=== PATIENT | male | born 1955 | race Caucasian/White ===

== ENCOUNTER → 2016-09-10 | Outpatient (CLI) | payer BC ==
--- NOTE | 2016-09-12 10:54 | PE ---
Nuclear medicine PET/CT HISTORY: Multiple myeloma Patient received 12.4 mCi F-18 FDG intravenously. Scanning was performed of the whole body. Exam juan elated to previous exam dated 20 February 2016 FINDINGS: Head and neck: Maxillary sinus disease is noted right greater than left. No evident adenopathy. No kauffman spicious hypermetabolic uptake. Small node deep to the sternocleidomastoid muscle on the right axial image 66 shows only mild hypermetabolic uptake, 2.1 as on prior CHEST: Coronary artery calcifications, evidence of old granulomatous disease again seen. No pleural o r pericardial effusion. Emphysematous changes are extensive within the lungs, there is no evident shivam g mass. No adenopathy or suspicious hypermetabolic uptake. Mild hilar uptake is likely physiologic. Abdomen pelvis: No retroperitoneal adenopathy. No suspicious hypermetabolic uptake. Bones: Left ilium shows cortical thickening is some central lucency, mild uptake, SUV 3.4. Coarsening of the trabecula also present in the right ilium. EXTREMITIES: Unremarkable IMPRESSION: Findings are similar to previous exam. IMPRESSION:
== END | disposition home or self-care (01) ==
LOC: RADPETMAIN 14:28
PROVIDERS: ATTEND Internal Medicine Hematology & Oncology
DX: C90.00 Multiple myeloma not having achieved remission (principal)
CPT/HCPCS: 78816; A9552

== ENCOUNTER → 2017-10-21 | Outpatient (CLI) | payer BC ==
--- NOTE | 2017-10-22 13:10 | PE ---
EXAMINATION TYPE: PET CT fusion whole body DATE OF EXAM: 10/21/2017 CLINICAL HISTORY: 62 year-old male restaging multiple myeloma. Last chemotherapy in 2014. TECHNIQUE: Following the intravenous administration of 10.7 mCi of F-18 FDG, whole body images are performed from the skull vertex through the feet. Images are reviewed on the computer in the coronal, axial, and sagittal planes. Reconstructed rotating images are created on independent workstation an d reviewed on the computer. A localization and attenuation correction CT is performed in conjunctio n with the PET scan. Glucose level: 106 mg/dL CTDI: 3.85 & 1.46 mGy DLP: 387.88 & 128.09 mGy-cm COMPARISON: 09/10/2016 FINDINGS: PET: Tiny lymph node in the right side of the neck posterior to the sternocleidomastoid muscle remains unc hanged but now shows no significant FDG uptake. There is variable moderate uptake along the oropharyngeal mucosal space likely physiologic activity. No discrete mass is seen. Mild bilateral hilar uptake, max SUV 2.8 is unchanged, likely reactive/post inflammatory. There is ev idence of prior granulomatous disease with calcified based on hilar lymph nodes. Average liver SUV 2.7. 2 right renal lesions, largest in the midpole measuring 2.2 cm and shows no discrete FDG uptake and w as present on prior exam. Both are most suggestive of cysts. Physiologic FDG uptake within the abdomen and pelvis. Variable mild FDG uptake throughout the spine, max SUV 2.9 is stable to decreased from prior, max SUV 3.3. Some heterogeneous density along the superior medial left iliac bone shows mild FDG uptake Max SUV 2. 2 versus 3.4, previously. Post bone graft harvesting changes in the posterior left iliac bone show no FDG uptake. Focal mild FDG uptake, max SUV 2.2, at the origin of the left medial gastrocnemius shows no change on CT images, probable tendinosis or muscular uptake especially given the curvilinear configuration. There is moderate focal activity seen superficially along the dorsolateral mid to hindfoot regions, m ax SUV 3.9 on the left and 4.5 on the right. The symmetry favors muscular activity relating to extens or brevis musculature in the feet. Mild symmetrical uptake along the plantar musculature of the feet, Max SUV 2.7. ATTENUATION CORRECTION CT: Visualized intracranial structures show no line shift or hydrocephalus. Visualized paranasal sinuses and mastoid air cells are clear. No cervical lymphadenopathy. Heart is upper limits of normal in size without pericardial effusion. Coronary vessel calcifications are present and are a marker for coronary artery disease. Ectatic ascending aorta 3.8 cm with conven tional arch vessel branching anatomy. Large caliber to the main right and left pulmonary arteries at 3.0 and 2.8 cm, respectively, suggesting underlying pulmonary arterial hypertension. Scattered nonen larged mediastinal lymph nodes are unchanged. Calcified subcarinal and right hilar lymph nodes compat ible prior granulomatous disease. There is moderate centrilobular emphysema with a dependent atelect asis. No consolidation or pleural effusion. Bilobed fusiform ectasia of the infrarenal abdominal aorta 2.8 and 2.6 cm. Small hiatal hernia. No d ilated small bowel, free fluid, or free air. Normal appendix. No mesenteric or retroperitoneal lympha denopathy. Sigmoid diverticulosis. Bladder is urine distended. Prostate gland enlargement 5.0 cm wide. No abnormal fluid collection in t he pelvis or pelvic lymphadenopathy. Bones: Post surgical changes of prior bone graft harvesting left iliac bone. IMPRESSION: 1. No convincing CT or metabolic evidence for recurrent/metastatic disease with some details as follo ws: 2. Post surgical changes along the posterior left iliac bone from prior bone graft harvesting. Some p atchy density in the iliac bone just above is stable and shows decreasing, now mild uptake, max SUV 2 .2 versus 3.4, previously. 3. Stable mild bilateral hilar uptake (SUV 2.8) likely reactive/post inflammatory. 4. Decreasing variable mild FDG uptake throughout the spine (max SUV 2.9 versus 3.3, previously). No discrete CT abnormality. 5. Some new mild hypermetabolism at the origin of the left medial gastrocnemius likely tendinosis or strain given the elongated configuration. Symmetrical moderate hypermetabolism along the dorsolateral mid to hindfeet also suggests muscular uptake. 6. Incidental: CAD, COPD with moderate emphysema and pulmonary arterial hypertension, sigmoid diverti culosis, ectatic infrarenal abdominal aorta (2.8 cm), and prostatomegaly (5.0 cm).
== END ==
LOC: RADPETMAIN 08:27
PROVIDERS: ATTEND Internal Medicine Hematology & Oncology
DX: C90.00 Multiple myeloma not having achieved remission (principal); Z92.21 Personal history of antineoplastic chemotherapy; Z98.890 Other specified postprocedural states
CPT/HCPCS: 78816; A9552

== ENCOUNTER → 2018-01-03 | Outpatient (CLI) | payer BC ==
--- NOTE | 2018-01-03 10:11 | US ---
EXAMINATION TYPE: US venous doppler duplex LE LT DATE OF EXAM: 01/03/2018 9:40 AM COMPARISON: NONE CLINICAL HISTORY: 62-year-old male M79.662 PAIN LT LOWER LIMB,R22.42 SWELLING LT LOWER LIMB. Chemo pa tient, swelling in left leg, no h/o DVT SIDE PERFORMED: Left TECHNIQUE: The lower extremity deep venous system is examined utilizing real time linear array sonog tanika with graded compression, doppler sonography and color-flow sonography. FINDINGS: VESSELS IMAGED: External Iliac Vein (EIV) Common Femoral Vein Deep Femoral Vein Greater Saphenous Vein * Femoral Vein Popliteal Vein Small Saphenous Vein * Proximal Calf Veins Posterior tibial veins (* superficial vessels) Left Leg: Appears negative for DVT *tech impression given to Orin at office @ 9:45 IMPRESSION: No evidence for DVT within the left lower extremity.
== END | disposition home or self-care (01) ==
LOC: RADUSWWP 09:23
PROVIDERS: ATTEND Internal Medicine Hematology & Oncology
DX: R22.42 Localized swelling, mass and lump, left lower limb (principal); M79.662 Pain in left lower leg

== ENCOUNTER → 2018-01-11 | Outpatient (CLI) | payer BC ==
--- NOTE | 2018-01-11 09:38 | XR ---
EXAMINATION TYPE: XR ankle limited RT DATE OF EXAM: 01/11/2018 CLINICAL HISTORY: Right ankle pain with no known injury. History of multiple myeloma. TECHNIQUE: Frontal and lateral images of the right ankle are obtained. COMPARISON: PET/CT dated 10/21/2017. FINDINGS: There is no focal lytic lesion in this patient known history of multiple myeloma. There is no acute fracture/dislocation evident in the right ankle. The ankle mortise appears within normal li mits. Well-corticated osseous fragment adjacent to the lateral malleolus may represent an accessory o ssicle or sequela of prior injury. There is minimal fat stranding within the pre-Achilles fat pad and mild soft tissue swelling of the lateral hindfoot and overlying the lateral malleolus. IMPRESSION: 1. No acute fracture or dislocation in the right ankle. No focal lytic lesion in this patient with hi story of multiple myeloma. 2. Mild fat stranding within the pre-Achilles fat pad and minimal soft tissue swelling over the later al malleolus. In combination with the previously seen mild hypermetabolism along the dorsolateral hin d feet on the prior PET dated 10/13/2017 suggesting muscular uptake and possible tendinosis or muscula r strain MRI could be performed further evaluate for these diagnoses.
== END | disposition home or self-care (01) ==
LOC: RADXRMAIN 09:15
PROVIDERS: ATTEND Internal Medicine Hematology & Oncology
DX: C90.00 Multiple myeloma not having achieved remission (principal); D61.810 Antineoplastic chemotherapy induced pancytopenia; G62.0 Drug-induced polyneuropathy; B37.0 Candidal stomatitis

== ENCOUNTER → 2018-07-28 | Outpatient (CLI) | payer BC ==
--- NOTE | 2018-07-28 11:54 | PE ---
EXAMINATION TYPE: PET CT fusion whole body DATE OF EXAM: 07/28/2018 COMPARISON: Most recent PET CT October 21, 2017 and older PET/CT's. HISTORY: Multiple myeloma progress study. Completed chemotherapy June 30, 2018. TECHNIQUE: Following the intravenous administration of 13.07 mCi of F-18 FDG, whole body images are performed from the top of skull to the bottom of the feet. Images are reviewed on the computer in th e coronal, axial, and sagittal planes. Reconstructed rotating images are created on independent work station and reviewed on the computer. A noncontrast CT is performed in conjunction with the PET sca n. SCAN: Subsequent Scan FINDINGS: HEAD AND NECK: No new suspicious hypermetabolic foci are seen. CHEST, MEDIASTINUM, AND HILAR REGION: There is hypermetabolic left hilar reticulated lesion measuring 4.2 x 2.8 cm axial image 130 new from prior PET/CT With max SUV of 5.6, primary lung carcinoma shoul d be considered as there is background moderate emphysematous change redemonstrated most prominent kelly ng apices. ABDOMEN AND PELVIS: No adrenal masses are noted. No hypermetabolic lesions are seen. OSSEOUS STRUCTURES: There is new hypermetabolic focus left lateral mid rib axial image 123, max SUV i s 2.94. There are new hypermetabolic foci in the thoracic spine for reference upper thoracic level axial imag e 104 Max SUV is 3.7. There is more prominent hypermetabolic focus T8 vertebra axial image 133 with m ax SUV of 11.83. No suspicious corresponding lytic lesion is clearly seen at this level. There is new hypermetabolic focus right upper sacrum with max SUV 7.12 axial image 229, no definitive corresponding lytic lesion is present. There is hypermetabolic focus right iliac bone axial image 20 with max SUV 7.01, no definitive corresponding lytic lesion is present. Well-corticated lucency left iliac bone near sacroiliac joint is unchanged from prior study without hypermetabolic uptake. LOWER EXTREMITIES: There are persistent areas of hypermetabolic uptake anterolateral aspect of bilate ral hindfeet to mid feet that is more prominent from prior studies, curvilinear in shape bilaterally with max SUV 6.73 on the left and 10.85 on the right. Additional uptake along plantar surface midfoot level is also present bilaterally on current study. Areas appear to correlate to muscle. OTHER CT: Calcified lymph nodes right hilar and subcarinal region consistent with old granulomatous d isease are redemonstrated. There is coronary artery calcification and/or stents again seen most prominent LAD distribution. Mild cardiomegaly remains present. Enlarged pulmonary arteries consistent with underlying pulmonary hyper tension are again seen. Small degree of bilateral gynecomastia is redemonstrated. There is mild to moderate calcified plaque of aorta extending into branch vessels with ectasia but no t greater than 3 cm aneurysmal change. Diverticula in the sigmoid colon are redemonstrated. Prostate gland is mildly enlarged in size consistent with BPH. IMPRESSION: 1. New multifocal osseous hypermetabolic uptake suspicious for active myeloma recurrence despite lack of visualization of distinct lytic lesions. 2. New suspicious left hilar hypermetabolic spiculated lesion worrisome for new primary lung carcinom a on background chronic emphysematous change. Bronchoscopy was sampling advised. 3. Increasing hypermetabolic uptake in the bilateral feet is favor postinflammatory given symmetric a nd persistent appearance versus prior studies, myositis is suspected. Correlate clinically.
== END | disposition home or self-care (01) ==
LOC: RADPETMAIN 07:25
PROVIDERS: ATTEND Internal Medicine Hematology & Oncology
DX: C90.00 Multiple myeloma not having achieved remission (principal); R93.7 Abnormal findings on diagnostic imaging of other parts of musculoskeletal system; Z92.21 Personal history of antineoplastic chemotherapy
CPT/HCPCS: 78816; A9552

== ENCOUNTER 2018-08-08 10:41 | Day surgery (SDC) | payer MEDICARE, BC ==
[2018-08-06 18:35] VITALS: BMI 26.6
[~2018-08-08 10:41] MED LIST: ALBUTEROL NEB (CONC) 2.5 MG/0.5 ML INHALATION ONE; LACTATED RINGERS 1,000 ML IV SCH; LIDOCAINE 1% 20 ML VIAL (10MG/ML) FOR IV START INTRADERMA PRN; LIDOCAINE 2% (PF) 20 MG/ML 10 ML AMP INHALATION ONE; LIDOCAINE VISCOUS 2% 15 ML CUP MUCOUS MEM ONE
[2018-08-08 11:02] VITALS: RESP 18; TEMP 97.8
[2018-08-08] MEDS ORDERED: LIDOCAINE 1% INJ 10MG/ML (20 ML MDV) ONE (12:39)
[2018-08-08] MEDS ORDERED: PROPOFOL 10 MG/ML 20 ML VIAL IV ONE (12:39)
[2018-08-08] MEDS ORDERED: LIDOCAINE 2% INJ 20 MG/ML INTRATRACH ONE (12:47)
[2018-08-08] MEDS ORDERED: oxyCODONE-APAP 5-325MG 1 EACH TAB PO ONE (13:23)
[2018-08-08] MEDS ORDERED: oxyCODONE-APAP 5-325MG 1 EACH TAB PO STA (13:26)
--- NOTE | 2018-08-08 14:16 | XR ---
EXAMINATION TYPE: XR chest 1V portable DATE OF EXAM: 08/08/2018 Comparison: 08/03/2018 Clinical History: 63-year-old male POST BRONCH Findings: Heart upper limits of normal in size. Known left lower lung opacity though there is increased surroun ding groundglass. No sizable effusion. No appreciable pneumothorax. Impression: Known left infrahilar opacity mass/consolidation. Some increased surrounding groundglass could repres ent mild hemorrhage associated with lung biopsy. No pleural effusion or pneumothorax seen.
--- NOTE | 2018-08-08 14:17 | FL ---
EXAMINATION TYPE: FL bronchoscopy DATE OF EXAM: 08/08/2018 COMPARISON: NONE HISTORY: BRONCH WITH BRUSHING,WASH AND BX TECHNIQUE: Fluoroscopy. Dr. Morejon supervised use of mariely for a lt side bronch with bx, brushings and wash. 8 secs fl
[2018-08-08 14:28] VITALS: BP 128/61; PULSE 70
--- NOTE | 2018-08-08 20:40 | PCN ---
PROCEDURE NOTE OPERATIVE REPORT: Bronchoscopy, bronchoalveolar lavage of the lingula, endobronchial brushings of the lingula, and transbronchial biopsies of the lingula using fluoroscopy as guidance. PREOPERATIVE DIAGNOSES: Left hilar mass noted on recent PET scan. POSTOPERATIVE DIAGNOSIS: Suspect bronchogenic carcinoma. ANESTHESIA USED: IV conscious sedation, please refer to PHILANTHROPY OFFICER documentation. DESCRIPTION OF PROCEDURE: Patient was prepared according to the bronchoscopy protocol. The patient was placed in a supine position, O2 was applied via nasal cannula. We monitored his O2 saturation continuously. Blood pressure was intermittently monitored. His cardiac rhythm was continuously monitored. After adequate IV conscious sedation, the bronchoscope was inserted through the right naris down to the area of the vocal cords. The vocal cords were noted to be patent. Lidocaine was applied over the vocal cords, and the bronchoscope was advanced further down to the trachea. Thorough examination was done of the trachea, dorothea, right upper lobe, right middle lobe, right lower lobe, left upper lobe, lingula, and left lower lobe. The only abnormality was noted was basically the narrowing of the bronchus to the lingula, and the mucosa was noted to be slightly inflamed and erythematous, friable. A bronchoalveolar lavage was done of the lingula involving the superior and inferior lingula. Then multiple brushings were done from the lingula using fluoroscopy. Then transbronchial biopsies from the inferior lingula were done with fluoroscopy guidance. There was no evidence of specific endobronchial lesion to biopsy. Procedure was well tolerated, no evidence of any immediate complications. SPECIMEN: From the lingula was sent for different diagnostic studies. Chest x-ray was ordered postoperatively. MMODL / IJN: [id number] /
[2018-08-08 21:04] LABS: Appearance,BF Cloudy; Color,BF Colorless; Nucleated Cells, Body Fluid 140 /uL; RBC, Body Fluid 1520 /uL
[2018-08-08 21:29] LABS: Mononuclear WBC,Body Fluid 4 %; Polynuclear WBC,Body Fluid 96 %; Total Cells Counted,Body Fluid 100
== END 2018-08-08 14:38 | disposition home or self-care (01) ==
LOC: ORWHC2ENDO 10:41
PROVIDERS: ATTEND Internal Medicine
DX: J42 Unspecified chronic bronchitis (principal); R91.8 Other nonspecific abnormal finding of lung field; E78.5 Hyperlipidemia, unspecified; I10 Essential (primary) hypertension; M19.90 Unspecified osteoarthritis, unspecified site; G62.0 Drug-induced polyneuropathy; I25.10 Atherosclerotic heart disease of native coronary artery without angina pectoris; E78.00 Pure hypercholesterolemia, unspecified; C90.01 Multiple myeloma in remission; C90.00 Multiple myeloma not having achieved remission; I25.2 Old myocardial infarction; F17.290 Nicotine dependence, other tobacco product, uncomplicated; Z95.5 Presence of coronary angioplasty implant and graft; Z94.81 Bone marrow transplant status; Z79.899 Other long term (current) drug therapy
CPT/HCPCS: 94640; 88104; 88108; 88305; 89050; 87070; 87205; 87116; 87102; 87206; 71045; 31628; 31623; 31624; J2001 ×3; J2704

== ENCOUNTER 2018-08-16 07:39 | Day surgery (SDC) | payer MEDICARE, BC ==
[2018-08-14 12:03] VITALS: BMI 26.6
[~2018-08-16 07:39] MED LIST changes: +LACTATED RINGERS 1,000 ML IV ONE; -LIDOCAINE 1% 20 ML VIAL (10MG/ML) FOR IV START INTRADERMA PRN
[2018-08-16 08:16] VITALS: RESP 16
[2018-08-16] MEDS ORDERED: LIDOCAINE 1% 20 ML VIAL (10MG/ML) FOR IV START INTRADERMA ONE (08:27)
--- NOTE | 2018-08-16 10:18 | CT ---
EXAMINATION TYPE: CT Chest wo con Veran Protocol DATE OF EXAM: 08/16/2018 COMPARISON: PET CT fusion July 28, 2018 HISTORY: Veran protocol CT DLP: [address] of the chest was performed with lung and mediastinal window settings submitted for [facility] navigation. The lack of contrast limits evaluation of the vascular, mediastinal and parenchyma l structures including the upper abdomen. LUNGS: Spiculated left upper lobe mass with pleural extension as well as extension to the superior hi lum. Mass extends along the left cardiac border into the lingula. Mass measures approximately 5.9 x 4 .5 cm x 9.1 cm. There is narrowing of the left upper lobe bronchus. Postobstructive pneumonitis noted . 7 mm nodular density right upper lobe image 22 requires further follow-up. Emphysematous changes wi thin the upper lobes. Mild right basilar subpleural fibrosis. MEDIASTINUM/ANN: Thoracic aorta is of normal caliber with limited evaluation given lack of contrast . The heart is not enlarged. No evidence for mediastinal mass. There is evidence of left hilar kika opathy measuring approximately 2.7 cm. Subcentimeter lymph nodes within the prevascular space as well as the paratracheal regions and calcified mediastinal and right hilar lymph nodes noted. AP window. UPPER ABDOMEN: No significant abnormality is seen. OTHER: No significant other abnormality. IMPRESSION: 1. Left upper lobe mass compatible with malignancy until proven otherwise. Narrowing left upper lobe bronchus with left basilar effusion small in size. Left hilar adenopathy noted as well. 2. Small spiculated groundglass nodule right upper lobe may reflect an area of scarring however appro priate follow-up is advised.
[2018-08-16] MEDS ORDERED: SUCCINYLCHOLINE CHLORIDE 100 MG/5 ML SYR IV ONE (10:42)
[2018-08-16] MEDS ORDERED: LIDOCAINE 1% INJ 10MG/ML (20 ML MDV) ONE (10:42)
[2018-08-16] MEDS ORDERED: MIDAZOLAM 2 MG/2 ML VIAL ONE (10:42)
[2018-08-16] MEDS ORDERED: GLYCOPYRROLATE 0.2 MG/ML 2 ML VIAL ONE (10:42)
[2018-08-16] MEDS ORDERED: ROCURONIUM BROMIDE 10 MG/ML 10 ML VIAL IV ONE (10:42)
[2018-08-16] MEDS ORDERED: PROPOFOL 10 MG/ML 20 ML VIAL IV ONE (10:42)
[2018-08-16] MEDS ORDERED: NEOSTIGMINE 1 MG/ML 10 ML VIAL ONE (10:42)
[2018-08-16] MEDS ORDERED: fentaNYL (PF) 50 MCG/ML 2 ML AMP ONE (10:42)
[2018-08-16] MEDS ORDERED: LACTATED RINGERS 1,000 ML IV ONE (11:44)
[2018-08-16 12:10] VITALS: TEMP 97.8
[2018-08-16 13:17] VITALS: BP 147/88; PULSE 56
--- NOTE | 2018-08-16 13:56 | XR ---
EXAMINATION TYPE: XR chest 1V portable DATE OF EXAM: 08/16/2018 Comparison: 08/08/2018 Clinical History: 63-year-old male Transbronchial biopsies MALLORY Findings: Heart upper limits of normal in size. Aorta and pulmonary vasculature within normal limits. Increasin g consolidation left mid and lower lung. No appreciable pneumothorax. No sizable effusion. Impression: Increasing consolidation left mid and lower lung could represent sequela of patient's endobronchial b iopsies with contusion. No pneumothorax.
[2018-08-16 15:08] LABS: Color,BF Red
[2018-08-16 15:30] LABS: Appearance,BF Bloody
[2018-08-16 16:13] LABS: Nucleated Cells, Body Fluid 800 /uL; RBC, Body Fluid 26600 /uL
[2018-08-16 16:24] LABS: Mononuclear WBC,Body Fluid 8 %; Polynuclear WBC,Body Fluid 91 %; Total Cells Counted,Body Fluid 100
--- NOTE | 2018-08-16 17:27 | P.PCN ---
Date of Procedure: 08/16/18 Preoperative Diagnosis: MALLORY mass Postoperative Diagnosis: MALLORY mass Procedure(s) Performed: Navigational bronchoscopy, transbronchial biopsy, transbronchial brushing, transbronchial needle aspirate, bronchioloalveolar lavage of the left upper lobe Anesthesia: DALTON Surgeon: Leona Zacarias Estimated Blood Loss (ml): 0 Pathology: other Condition: stable Disposition: same day Operative Findings: This procedure was done in the operating room. This is a navigational bronchoscopy. The patient underwent a CAT scan of the chest. The VPADS were applied to his chest. The patient's computed tomography scan of the chest was uploaded into the [employer] navigational system. The left upper lobe mass was identified. The mapping was done and the appropriate information was uploaded into the [employer] station. The patient was brought into the operating room. With the help of TALENT ACQUISITION SPECIALIST, the patient was intubated and placed on a mechanical ventilator. The anesthesia was managed by TALENT ACQUISITION SPECIALIST the bedside. Following intubation, the flexible bronchoscope was inserted to the orotracheal tube and was advanced into the lower trachea. The tip of the ET tube was seen about 2 cm above the domitila. A quick airway inspection was done. Domitila was sharp in the midline. The distal trachea was within normal limits. The visualized airways including the bilateral mainstem bronchi, right upper lobe bronchus, right middle lobe bronchus, right lower lobe bronchus, left upper lobe bronchus, left lower lobe bronchus, alongsegments and subsegments. The airways were patent and without any endobronchial tumors or lesions. Some limited secretions were seen in the lingular segment and the anterior segment of the left upper lobe. The secretions were suctioned out. Following that the bronchoscope was brought to the main domitila and calibrations were done using to reference points and these were the main domitila and the secondary domitila and the left lung. Following that , using navigational guidance, the bronchoscope was directed to the left upper lobe. The forceps was inserted. The left upper lobe mass was localized and the mass was approached in 2 different routes. Initial biopsies were taken from the superior segment of the lingula. Subsequent biopsies were obtained from the subsegments from the anterior segment of the left upper lobe. The mass was approached with 0 mm distance and under litigation guidance the forceps was seen within the mass. Multiple transbuccal biopsies were obtained. Following that a spot compressions of the left upper lobe mass was done using the similar navigational approach. Following that, a 19-gauge needle was used to perform transbronchial needle aspirate of left upper lobe mass and this was done again on the navigational guidance. At the end of the procedure, a bronchial lavage of the left upper lobe was done. A total of 80 mL of fluid was infused and 25 mL of bloody aspirate was obtained. No bedside Occasional bleeding. Bronchoscope was removed. The patient was extubated and the patient was transferred to recovery in stable condition. The patient had a chest x-ray that showed no evidence of any pneumothorax. The patient was discharged home to be followed up with me in the office on outpatient basis.
--- NOTE | 2018-08-21 16:26 | CDI ---
Date: 08/21/18 CDS/Heating Unit Installer Name: Cami Lagunas Phone: If any questions, call Indira Patiño Concrete [employer] Plant Supervisor at [phone] Patient Name: Fede Nicholas Admit Date: 08/16/18 Discharge Date: 08/16/18 ATTENTION: The [facility] Coding Staff appreciate your assistance in clarifying documentation. Please respond to the clarification below the line at the bottom and electronically sign. The [facility] Coding staff will review the response and follow-up if needed. Please note: Queries are made part of the Legal Health Record. If you have any questions, please contact the Concrete Block Plant Supervisor. Dear Dr. Zacarias, Please provide clarification of the procedure(s) performed. Operative report under Procedure(s) Performed; is documented that transbronchial brushing was performed. The pathology report notes a specimen from the brushing. There is no mention of the brushing in the body of the report. Please clarify. Thank you for your kind consideration. This is a transbronchial brushing of a MALLORY mass/opacity MTDD
== END 2018-08-16 13:33 | disposition home or self-care (01) ==
LOC: ORWHC2ENDO 07:39
PROVIDERS: ATTEND Internal Medicine Critical Care Medicine
DX: J44.9 Chronic obstructive pulmonary disease, unspecified (principal); I25.10 Atherosclerotic heart disease of native coronary artery without angina pectoris; I10 Essential (primary) hypertension; C90.00 Multiple myeloma not having achieved remission; I25.2 Old myocardial infarction; Z94.81 Bone marrow transplant status; E78.5 Hyperlipidemia, unspecified; F17.200 Nicotine dependence, unspecified, uncomplicated; Z79.899 Other long term (current) drug therapy; Z79.891 Long term (current) use of opiate analgesic; Z79.82 Long term (current) use of aspirin
CPT/HCPCS: 88104; 88108; 88305; 89050; 88342; 88341; 87070; 87205; 71045; 71250; 31628; 31623; 31624; 31627; J2250; J2710; J2001; J3010; J0330; J2704; 31625; 31633

== ENCOUNTER 2018-08-22 00:56 | Inpatient (IN) | payer MEDICARE, BC ==
[2018-08-22] MEDS ORDERED: HEPARIN SODIUM,PORCINE 5,000 UNIT/ML 1 ML VIAL IV STA (01:06)
[2018-08-22] MEDS ORDERED: NITROGLYCERIN OINT 1 INCH/GM PACKET TOPICAL STA (01:06)
--- NOTE | 2018-08-22 01:09 | ED ---
Chest Pain HPI - General Chief Complaint: Chest Pain Stated Complaint: Chest Pain Time Seen by Provider: 08/22/18 01:05 Source: patient, EMS Mode of arrival: ambulatory Limitations: no limitations - History of Present Illness Initial Comments: Fede is a 63-year-old male with a history of known CAD and recently identified lung mass. Patient presents to the emergency department today via EMS for evaluation of sudden onset of chest pain. Patient reports a history throughout the day he was having some chills and sweats but otherwise felt okay. He reports that he woke from sleep with left-sided sharp stabbing chest pain that feels like a knife in his back below his scapula. Patient called EMS and was given aspirin and nitro with no improvement in his pain. He was given fentanyl which she believes improved his pain significantly. Upon arrival to the emergency department patient is febrile diaphoretic and ill-appearing. - Related Data Home Medications Medication Instructions Recorded Confirmed RX: Famotidine 20 mg PO HS 01/08/14 08/14/18 RX: Gabapentin [Neurontin] 600 mg PO TID 01/08/14 08/14/18 RX: oxyCODONE HCL/ACETAMINOPHEN 1 each PO Q6HR PRN 01/08/14 08/14/18 [Percocet 10-325 mg] Atorvastatin [Lipitor] 40 mg PO DAILY@1200 03/24/14 08/14/18 RX: Aspirin 81 mg PO DAILY 03/24/14 08/14/18 Acyclovir [Zovirax] 400 mg PO BID 08/06/18 08/14/18 Cetirizine HCl [Zyrtec] 10 mg PO HS 08/06/18 08/14/18 RX: Lisinopril [Zestril] 2.5 mg PO DAILY@1200 08/06/18 08/14/18 Allergies Allergy/AdvReac Type Severity Reaction Status Date / Time No Known Allergies Allergy Verified 08/22/18 01:03 Review of Systems ROS Statement: Those systems with pertinent positive or pertinent negative responses have been documented in the HPI. ROS Other: All systems not noted in ROS Statement are negative. EKG Findings - EKG Comments: EKG Findings:: EKG obtained it 12:59 AM, rate is 98 rhythm is sinus there is a normal axis, there is a short NV NV is 88 ms, QRS 90 QTc her long at is 485. There is mild ST depressions in V3 and 4 there are no acute ST elevations no evidence of acute infarction. Past Medical History Past Medical History: Coronary Artery Disease (CAD), Cancer, COPD, GERD/Reflux, Hyperlipidemia, Hypertension, Myocardial Infarction ([place]) Additional Past Medical History / Comment(s): multiple myeloma, hx ulcer years ago. NEUROPATHY LEGS/FEET. LUNG MASS biopsy results not back yet. Last Myocardial Infarction Date:: 01/09/14, FEB 2005 History of Any Multi-Drug Resistant Organisms: None Reported Past Surgical History: Heart Catheterization With Stent Additional Past Surgical History / Comment(s): BONE MARROW TRANSPLANT 09/2010. PTCA W/ 2 STENTS 2004; PTCA W/ 1 STENT 2013. Bone marrow biopsies. COLONOSCOPY. EGD Past Anesthesia/Blood Transfusion Reactions: No Reported Reaction Date of Last Stent Placement:: 01/09/14 Past Psychological History: No Psychological Hx Reported Smoking Status: Current every day smoker - Past Family History Father Family Medical History: Cancer Additional Family Medical History / Comment(s): LUNG CA Son(s) Family Medical History: Cancer Additional Family Medical History / Comment(s): BLADDER CA General Exam - General Exam Comments Initial Comments: Physical Exam GENERAL: Ill appearing, febrile, diaphoretic HENT: Normocephalic, Atraumatic. EYES: PERRL, EOMI PULMONARY: Decrease lung sounds on the left CARDIOVASCULAR: There is a regular rate and rhythm without any murmurs gallops or rubs. ABDOMEN: Soft and nontender with normal bowel sounds. SKIN: Warm and diaphoretic : Deferred NEUROLOGIC: Patient is alert and oriented x3. Moving all extremities spontaneously MUSCULOSKELETAL: Normal extremities with adequate strength and full range of motion. No lower extremity swelling or edema. No calf tenderness. PSYCHIATRIC: Normal psychiatric evaluation. Limitations: no limitations Limitations: no limitations Course Vital Signs 08/22/18 08/22/18 08/22/18 00:57 01:06 01:20 Temperature 101.8 F H 101.7 F H Pulse Rate 98 94 89 Respiratory 20 18 18 Rate Blood Pressure 118/65 94/63 110/72 O2 Sat by Pulse 97 93 L 95 Oximetry 08/22/18 08/22/18 08/22/18 01:35 01:50 02:05 Temperature 101.7 F H 101.6 F H 100.2 F H Pulse Rate 89 77 72 Respiratory 18 18 18 Rate Blood Pressure 113/63 108/74 118/63 O2 Sat by Pulse 94 L 94 L 95 Oximetry 08/22/18 08/22/18 08/22/18 02:20 03:37 04:13 Temperature 99.0 F 98.6 F Pulse Rate 72 65 64 Respiratory 18 18 18 Rate Blood Pressure 122/62 106/64 107/64 O2 Sat by Pulse 95 95 93 L Oximetry Chest Pain MDM - MDM The patient was seen and evaluated, history was obtained from EMS and the patient, initially brought cardiac workup was ordered however patient was noted to be tachycardic and febrile diaphoretic additional labs including blood cultures and influenza swabs ordered Labs reveal no leukocytosis however there is new microcytic anemia of unknown origin. Patient has not had a CBC done in number of years in our system. Lactic acid elevated at 3.3, IV fluids are infusing, Motrin was ordered for the fever Influenza negative CXR with effusion, questionable for pneumonia Rocephin and azithromycin were ordered Patient reports that he gets his blood Beau regularly with his oncologist Dr. Reynolds in his been told he's anemic in the past but is not certain what his hemoglobin usually is, his hemoglobin today is 8.8, uncertain etiology though he does appear to be microcytic. Computed tomography scan of the chest was ordered Computed tomography scan her chest has multiple abnormalities including inflammatory changes of the pericardium concerning for pericarditis. Compression fracture at T4, again the mass is identified as well as lymphadenopathy. Given this anemia of unknown etiology, lactic acidosis, fever, CT findings concerning for pericarditis I do feel the patient warrants admission for further evaluation. Admission orders were placed consults to cardiology and oncology were placed, an echocardiogram was ordered. Patient was updated on plan. Disposition Clinical Impression: Pericarditis, Lung mass, Sepsis, Chest pain, Mass of upper lobe of left lung Disposition: ADMITTED IP TO THIS HOSP Condition: Stable Is patient prescribed a controlled substance at d/c from ED?: No
[2018-08-22] MEDS ORDERED: HEPARIN SOD,PORK IN 0.45% NACL 25,000 UNIT in 0.45% NACL 1 250ML.BAG IV SCH (01:15)
[2018-08-22 01:24] LABS: Anisocytosis Slight; Basophils % (A) 1 %; Eosinophils # (A) 0.1 k/uL (0-0.7); Eosinophils % (A) 1 %; HCT 27.4 % (39.0-53.0); HGB 8.8 gm/dL (13.0-17.5); Hypochromasia Marked; Lymphocytes # (A) 0.5 k/uL (1.0-4.8); Lymphocytes % (A) 10 %; MCH 35.1 pg (25.0-35.0); MCHC 32.1 g/dL (31.0-37.0); MCV 109.3 fL (80.0-100.0); Mean Platelet Volume 10.2; Monocytes # (A) 0.1 k/uL (0-1.0); Monocytes % (A) 3 %; Neutrophils # (A) 4.3 k/uL (1.3-7.7); Neutrophils % (A) 84 %; RBC 2.51 m/uL (4.30-5.90); RDW 18.6 % (11.5-15.5); WBC 5.1 k/uL (3.8-10.6)
[2018-08-22 01:33] LABS: ALT 25 U/L (21-72); AST 16 U/L (17-59); Alkaline Phosphatase 185 U/L (38-126); Anion Gap 11 mmol/L; Blood Urea Nitrogen 27 mg/dL (9-20); Calcium 8.6 mg/dL (8.4-10.2); Carbon Dioxide 18 mmol/L (22-30); Chloride 109 mmol/L (98-107); Glucose 133 mg/dL (74-99); Magnesium 1.9 mg/dL (1.6-2.3); Potassium 3.9 mmol/L (3.5-5.1); Sodium 138 mmol/L (137-145); Total Bilirubin 1.1 mg/dL (0.2-1.3); Total Protein 5.8 g/dL (6.3-8.2)
[2018-08-22 01:40] LABS: INR 1.1 (<1.2); Prothrombin Time 11.8 sec (9.0-12.0)
[2018-08-22 01:48] LABS: Partial Thromboplastin Time 21.2 sec (22.0-30.0)
[2018-08-22] MEDS ORDERED: AZITHROMYCIN 500 MG in SODIUM CHLORIDE 0.9% 250 ML IVPB STA (01:56)
[2018-08-22 01:59] LABS: Platelet Count 59 k/uL (150-450); Poikilocytosis (M) Present; Target Cells Present
[2018-08-22 02:00] LABS: Ovalocytes Present
[2018-08-22 02:01] LABS: Macrocytosis Marked
--- NOTE | 2018-08-22 02:05 | XR ---
EXAM: XR Chest, 2 Views CLINICAL HISTORY: ITS.REASON XR Reason: Chest Pain TECHNIQUE: Frontal and lateral views of the chest. COMPARISON: 08/16/17. FINDINGS: Lungs: Persistent left mid and lower lung opacity, slightly increased compared to prior study. Pleural space: Probable left pleural effusion. No significant pneumothorax. Heart: Stable cardiomediastinal silhouette. Mediastinum: See above. Bones/joints: Stable. IMPRESSION: 1. Persistent left mid and lower lung opacity, slightly increased compared to prior study. 2. Probable left pleural effusion.
[2018-08-22] MEDS ORDERED: IBUPROFEN 400 MG TAB PO STA (02:09)
[2018-08-22] MEDS ORDERED: SODIUM CHLORIDE 0.9% 1,000 ML IV ONE (02:09)
[2018-08-22] MEDS ORDERED: ACETAMINOPHEN TAB 500 MG TAB PO STA (02:20)
[2018-08-22] MEDS ORDERED: RX INFO: IV CONTRAST WAS GIVEN 1 EACH MISC MISCELLANE PRN (02:54)
--- NOTE | 2018-08-22 04:30 | CT ---
EXAM: CT Chest With Intravenous Contrast CLINICAL HISTORY: ITS.REASON CT Reason: pain, mass, new anemia TECHNIQUE: Axial computed tomography images of the chest with intravenous contrast. CTDI is 7.7 mGy and DLP is 366.9 mGy-cm. This CT exam was performed using one or more of the following dose reduction techniques: automated exposure control, adjustment of the mA and/or kV according to patient size, and/or use of iterative reconstruction technique. COMPARISON: CT 08/16/18. FINDINGS: Lungs: Small-moderate left pleural effusion with left basilar atelectasis/consolidation. Persistent left upper lobe mass. The right lung appears stable with persistent small nodules. Pleural space: No evidence of pneumothorax. Heart: Small pericardial fluid with fat stranding at the left cardiophrenic angle. Bones/joints: Compression deformities in the spine which appears more prominent at the T8 level. Sclerotic focus again noted at the T4 level. Soft tissues: Unremarkable. Vasculature: Atherosclerotic disease. No aortic dissection. Enlarged pulmonary artery suggestive of pulmonary hypertension. Lymph nodes: Prominent mediastinal and hilar lymph nodes, some of which are calcified. Gallbladder and bile ducts: Mildly distended gallbladder. Adrenals: Slight thickening of the adrenal glands. Kidneys and ureters: Right renal low-density lesion. Incompletely imaged low density structure adjacent to the left kidney. IMPRESSION: 1. Small-moderate left pleural effusion with left basilar atelectasis/consolidation. Persistent left upper lobe mass. Correlate clinically for inflammatory/infectious process. 2. Small pericardial fluid with fat stranding at the left cardiophrenic angle. Correlate clinically for pericarditis or other inflammatory/infectious etiologies. 3. Compression deformities in the spine which appears more prominent at the T8 level, cannot exclude acute fracture, potentially pathologic. 4. Additional findings, as above.
[2018-08-22] MEDS ORDERED: MORPHINE SULFATE 4 MG/ML SYRINGE IVP PRN ×2 (04:46→09:04)
[2018-08-22] MEDS ORDERED: BACLOFEN 10 MG TAB PO PRN (13:01)
[2018-08-22] MEDS ORDERED: HYDROmorphone 1 MG/ML 1 ML SYRINGE IVP PRN (13:07)
[2018-08-22] MEDS: KETOROLAC 30 MG/ML 1 ML VIAL IVP SCH ×2 (14:58→20:47)
[2018-08-22] MEDS: oxyCODONE-APAP 10-325MG 1 EACH TAB PO PRN (14:58)
[2018-08-22] MEDS ORDERED: NALOXONE 0.4 MG/ML 1 ML VIAL IV PRN (16:07)
--- NOTE | 2018-08-22 16:08 | ECHOF ---
Referral Reason:possible pericarditis MEASUREMENTS -------- HEIGHT: 175.3 cm WEIGHT: 79.4 kg BP: 124/71 RVIDd: 2.9 cm (< 3.3) IVSd: 1.2 cm (0.6 - 1.1) LVIDd: 4.8 cm (3.9 - 5.3) LVPWd: 1.2 cm (0.6 - 1.1) IVSs: 1.4 cm LVIDs: 3.1 cm LVPWs: 1.4 cm LAESV Index (A-L): 17.52 ml/m Ao Diam: 4.0 cm (2.0 - 3.7) AV Cusp: 1.7 cm (1.5 - 2.6) LA Diam: 3.0 cm (2.7 - 3.8) MV E Eric: 0.53 m/s MV DecT: 276 ms MV A Eric: 0.75 m/s MV E/A Ratio: 0.70 RAP: 5.00 mmHg RVSP: 13.28 mmHg FINDINGS -------- Sinus rhythm. This was a technically difficult study with suboptimal views. The left ventricular size is normal. There is mild concentric left ventricular hypertrophy. Overa ll left ventricular systolic function is mild-moderately impaired with, an EF between 40 - 45 %. Se ptal Hypokinesis The right ventricle is normal in size and function. Normal LA size by volume 22+/-6 ml/m2. The right atrium was not well visualized. 3 ml of Lumason was utilized for enhancement of images. Aortic valve is trileaflet and is mildly thickened. Trace amount of aortic regurgitation. There is no evidence of aortic stenosis. The mitral valve leaflets are mildly thickened. There is trace to mild mitral regurgitation. Trace tricuspid regurgitation present. Right ventricular systolic pressure is normal at < 35 mmHg. There is no evidence of pulmonary hypertension. The pulmonic valve was not well visualized. The aortic root is mildy dilated up to 3.9 cm. Normal inferior vena cava with normal inspiratory collapse consistent with estimated right atrial pre ssure of 5 mmHg. CONCLUSIONS -------- 1. Sinus rhythm. 2. This was a technically difficult study with suboptimal views. 3. The left ventricular size is normal. 4. There is mild concentric left ventricular hypertrophy. 5. Overall left ventricular systolic function is mild-moderately impaired with, an EF between 40 - 45 %. 6. Septal Hypokinesis 7. Normal LA size by volume 22+/-6 ml/m2. 8. The right atrium was not well visualized. 9. 3 ml of Lumason was utilized for enhancement of images. 10. Aortic valve is trileaflet and is mildly thickened. 11. Trace amount of aortic regurgitation. 12. The mitral valve leaflets are mildly thickened. 13. There is trace to mild mitral regurgitation. 14. Right ventricular systolic pressure is normal at < 35 mmHg. 15. There is no evidence of pulmonary hypertension. 16. The pulmonic valve was not well visualized. 17. The aortic root is mildy dilated up to 3.9 cm. [employer]LL OPERATOR: Casey Ochoa RDCS
--- NOTE | 2018-08-22 16:18 | P.CRDCN ---
History of Present Illness Consult date: 08/22/18 Requesting physician: Eladio Salcedo Consult reason: chest pain Chief complaint: Back and chest pain History of present illness: This is a pleasant 63-year-old gentleman with history of coronary artery disease and prior stent placements, in 2010 he underwent a stem cell transplant, nicotine dependence, has had multiple bone marrow biopsies, also earlier this month has undergone bronchoscopies, biopsies, and needle aspiration , hypertension, hyperlipidemia, who follows with Dr. Her in the office. Patient most recently he has also been found to have a lung mass, being followed by Dr. Zacarias as an outpatient. He presents to the hospital on this occasion with fairly sudden onset of upper back discomfort radiating through to his chest, he has a considerable sweats associated with this. He describes his pain as very sharp and stabbing in nature. There was attempts made today for the patient to go down to have a pain pump inserted, but because of his platelet count this was deferred. Patient was also found to have a significant pleural effusion for which he may undergo a thoracentesis. CAT scan of the chest was performed which revealed small to moderate left pleural effusion with a left basilar atelectasis. Persistent left upper lobe mass. Small amount of pericardial fluid, with fat stranding at the left costophrenic angle. Compression deformities noted. Echocardiogram with Doppler study was performed which revealed an ejection fraction of 40-45%. Septal hypokinesia noted. No mention of any pericardial effusion. EKG shows normal sinus rhythm with nonspecific ST-T wave changes. White blood cell count 5.1, hemoglobin 8.8, platelet count 59. Sodium 138, potassium 3.9, BUN 27, creatinine 1.0. Plasma lactic acid on admission 3.3, 1.2 this morning, magnesium 1.9, BNP 5240, troponins negative 3. Influenza A and B-. At the time of my examination, patient is in a moderate to severe amount of pain in his right upper back and right upper chest area. Extremely diaphoretic. Past Medical History Past Medical History: Coronary Artery Disease (CAD), Cancer, COPD, GERD/Reflux, Hyperlipidemia, Hypertension, Myocardial Infarction ([place]), Pneumonia Additional Past Medical History / Comment(s): 2009 diagnosed with multiple myeloma-tx with chemo and in 2010 had stem cell transplant, recently found L hilar mass-has had it biopsied and awaiting results, pt states he is on HTN med and cholesterol medications since his MIs prophylactically, gastric ulcer years ago, low back pain, neuropathy bilateral legs/feet since chemo for multiple myeloma treated, sinus problems. Last Myocardial Infarction Date:: 01/09/14, FEB 2005 History of Any Multi-Drug Resistant Organisms: None Reported Past Surgical History: Heart Catheterization, Heart Catheterization With Stent Additional Past Surgical History / Comment(s): 2011 Stem cell transplant, multiple bone marrow bxs, 08/08/18 and 08/16/18 bronchoscopies/biopsies/needle aspiration, EGD/colonoscopy. Past Anesthesia/Blood Transfusion Reactions: No Reported Reaction Additional Past Anesthesia/Blood Transfusion Reaction / Comment(s): Pt states he received blood in past without reaction. Date of Last Stent Placement:: 01/09/14 Smoking Status: Current every day smoker - Past Family History Father Family Medical History: Cancer Additional Family Medical History / Comment(s): LUNG CA Son(s) Family Medical History: Cancer Additional Family Medical History / Comment(s): BLADDER CA Mother Family Medical History: No Reported History Additional Family Medical History / Comment(s): Mother is healthy and is 86yrs old. Medications and Allergies Home Medications Medication Instructions Recorded Confirmed Type Famotidine 20 mg PO HS 01/08/14 08/22/18 History Gabapentin [Neurontin] 600 mg PO TID 01/08/14 08/22/18 History Atorvastatin [Lipitor] 40 mg PO DAILY@1200 03/24/14 08/22/18 History Acyclovir [Zovirax] 400 mg PO BID 08/06/18 08/22/18 History Cetirizine HCl [Zyrtec] 10 mg PO HS 08/06/18 08/22/18 History Lisinopril [Zestril] 2.5 mg PO DAILY@1200 08/06/18 08/22/18 History Nystatin 100,000 Unit/ml Susp 500,000 unit PO QID 08/22/18 08/22/18 History [Mycostatin Oral Susp] Prochlorperazine [Compazine] 10 mg PO Q6H PRN 08/22/18 08/22/18 History Pyridoxine HCl (Vitamin B6) 100 mg PO BID 08/22/18 08/22/18 History [Vitamin B-6] oxyCODONE-APAP 10-325MG [Percocet 1 tab PO Q4H PRN 08/22/18 08/22/18 History 10-325 mg] Allergies Allergy/AdvReac Type Severity Reaction Status Date / Time No Known Allergies Allergy Verified 08/22/18 09:38 Physical Exam Vitals: Vital Signs Temp Pulse Pulse Resp BP BP BP 08/22/18 11:55 98.7 F 62 20 126/58 08/22/18 07:40 97.5 F L 57 L 20 127/69 08/22/18 06:43 98.3 F 61 18 124/71 08/22/18 04:13 64 18 107/64 08/22/18 03:37 98.6 F 65 18 106/64 08/22/18 02:20 99.0 F 72 18 122/62 08/22/18 02:05 100.2 F H 72 18 118/63 08/22/18 01:50 101.6 F H 77 18 108/74 08/22/18 01:35 101.7 F H 89 18 113/63 08/22/18 01:20 101.7 F H 89 18 110/72 08/22/18 01:06 101.8 F H 94 18 94/63 08/22/18 00:57 98 20 118/65 Pulse Ox 08/22/18 11:55 95 08/22/18 07:40 08/22/18 06:43 93 L 08/22/18 04:13 93 L 08/22/18 03:37 95 08/22/18 02:20 95 08/22/18 02:05 95 08/22/18 01:50 94 L 08/22/18 01:35 94 L 08/22/18 01:20 95 08/22/18 01:06 93 L 08/22/18 00:57 97 Intake and Output 08/22/18 08/22/18 08/22/18 06:59 14:59 22:59 Output Total 400 Balance -400 Output: Urine 400 Other: Weight 79.379 kg 79.379 kg PHYSICAL EXAMINATION: GENERAL: 63-year-old gentleman in moderate to severe upper back and right upper chest pain, diaphoretic. HEENT: Head is atraumatic, normocephalic. Pupils equal, round. Sclera anicteric. Conjunctiva are clear. Mucous membranes of the mouth are moist. Neck is supple. There is no elevated jugular venous pressure. No carotid bruit is heard. HEART EXAMINATION: Heart S1, S2 normal. No murmur or gallop heard. CHEST EXAMINATION:[ Lungs are reveal diminished air entry bilaterally, left greater than the right. ABDOMEN: Soft, nontender. Bowel sounds are heard. No organomegaly noted. EXTREMITIES: 2+ peripheral pulses with no evidence of peripheral edema and no calf tenderness noted. NEUROLOGIC patient is awake, alert and oriented 3 . . Results 08/22/18 01:11 08/22/18 01:11 Cardiac Enzymes 08/22/18 08/22/18 08/22/18 Range/Units 01:11 01:11 06:37 AST 16 L (17-59) U/L Troponin I <0.012 <0.012 (0.000-0.034) ng/mL 08/22/18 Range/Units 12:29 AST (17-59) U/L Troponin I <0.012 (0.000-0.034) ng/mL Coagulation 08/22/18 Range/Units 01:11 PT 11.8 (9.0-12.0) sec APTT 21.2 L (22.0-30.0) sec CBC 08/22/18 Range/Units 01:11 WBC 5.1 (3.8-10.6) k/uL RBC 2.51 L (4.30-5.90) m/uL Hgb 8.8 L (13.0-17.5) gm/dL Hct 27.4 L (39.0-53.0) % Plt Count 59 L (150-450) k/uL Comprehensive Metabolic Panel 08/22/18 Range/Units 01:11 Sodium 138 (137-145) mmol/L Potassium 3.9 (3.5-5.1) mmol/L Chloride 109 H (98-107) mmol/L Carbon Dioxide 18 L (22-30) mmol/L BUN 27 H (9-20) mg/dL Creatinine 1.01 (0.66-1.25) mg/dL Glucose 133 H (74-99) mg/dL Calcium 8.6 (8.4-10.2) mg/dL AST 16 L (17-59) U/L ALT 25 (21-72) U/L Alkaline Phosphatase 185 H (38-126) U/L Total Protein 5.8 L (6.3-8.2) g/dL Albumin 3.0 L (3.5-5.0) g/dL Current Medications Generic Name Dose Route Start Last Admin Trade Name Freq PRN Reason Stop Dose Admin Aspirin 325 mg 08/23/18 09:00 Aspirin PO DAILY BARBARA Baclofen 5 mg 08/22/18 13:01 Lioresal PO QID PRN Muscle Spasm Hydromorphone HCl 1 mg 08/22/18 13:07 08/22/18 13:15 Dilaudid IVP 1 mg Q4HR PRN Administration Pain Ketorolac Tromethamine 15 mg 08/22/18 13:15 08/22/18 14:58 Toradol IVP 08/26/18 13:02 15 mg Q6HR BARBARA Administration Miscellaneous Information 1 each 08/22/18 02:54 Rx Info: Iv Contrast Was Given MISCELLANE 08/24/18 02:54 DAILY PRN Per Protocol Oxycodone/Acetaminophen 1 each 08/22/18 12:57 08/22/18 14:58 Percocet 10-325 PO 1 each Q4H PRN Administration MODERATE Pain Intake and Output 08/22/18 08/22/18 08/22/18 06:59 14:59 22:59 Output Total 400 Balance -400 Output: Urine 400 Other: Weight 79.379 kg 79.379 kg Patient Weight 08/23/18 06:59 Weight 79.379 kg 08/22/18 01:11 08/22/18 01:11 EKG Interpretations (text) EKG shows a normal sinus rhythm with nonspecific ST-T wave changes. Assessment and Plan Plan: Assessment and plan #1 right upper back and upper chest discomfort, atypical for acute coronary syndrome, troponins negative 3. #2 pleural effusion, possibly may undergo a thoracentesis #3 recent identification of the lung mass, being followed by pulmonary as an outpatient. #4 known history of coronary artery disease with prior stenting #5 nicotine dependence #6 diabetes #7 hypertension #8 hyperlipidemia #9 thrombocytopenia Plan Echocardiogram with Doppler study was performed which revealed an ejection fraction of 40-45%. There is no evidence of pulmonary of hypertension, no evidence of any pericardial effusion. We will decrease the aspirin to 81 mg daily, patient is going to be started on an IV drip for pain. He was scheduled to undergo implantation of a pain pump but because of the low platelets this was deferred. Patient may also undergo thoracentesis. Further recommendations to follow. DNP note has been reviewed, I agree with a documented findings and plan of care. Patient was seen and examined.
--- NOTE | 2018-08-22 17:23 | P.CNPUL ---
History of Present Illness Consult date: 08/22/18 Requesting physician: Eladio Salcedo Reason for consult: dyspnea (Shortness of breath, left-sided chest discomfort, Lung mass) Chief complaint: Left-sided back pain radiating to the front, shortness of breath History of present illness: This is a very pleasant 63-year-old gentleman who follows with Dr. Coelho as his primary care physician. He has a history of coronary artery disease with previous stent placements in 2004, 2013, hyperlipidemia, hypertension, multiple myeloma with previous bone marrow transplant in 2010, annual bone marrow biopsies and follows with Dr. Reynolds for the same. He also has a more recent history of a large left upper lobe lung mass. PET scan from 07/28/2018 revealed hypermetabolic left hilar reticulated lesion measuring 4.2 x 2.8 with a max SUV of 5.6. Primary lung carcinoma within the differential. There is also new hypermetabolic focus in the left lateral mid rib with a max SUV of 2.94. There were new hypermetabolic foci in the thoracic spine with a max SUV of 3.7. There is a more prominent hypermetabolic focus at T8 with a max SUV of 11.83. There is also new hypermetabolic focus in the right upper sacrum with a max SUV of 7.12. No definitive corresponding lytic lesion was present. He had undergone bronchoscopy with transbronchial biopsies on 08/08/2018 which revealed no evidence of malignancy, he had a subsequent navigational bronchoscopy on 08/16/2018 with more specific transbronchial biopsies and transbronchial needle aspirates, washes and brushings all of which were negative for malignancy. His PET scan does show uptake with an SUV value of 5.6 in that area. The patient presented here to the emergency room early this morning with complaints of significant left-sided posterior back pain which was radiating through to his left chest anteriorly. He was quite uncomfortable. CT scan of the chest revealed a small to moderate left pleural effusion with left basilar atelectasis/consolidation. There is persistent left upper lobe mass. Small pericardial effusion. EKG revealed normal sinus rhythm with some nonspecific ST and T wave abnormalities. Troponins are negative 3. Influenza screen is negative. White count 5.1. Hemoglobin 8.8. Platelet count 59,000. Creatinine 1.09. Lactic acid 3.3. Currently 1.2. The patient was seen today in consultation on the selective care unit. He is awake and alert. He is in a significant amount of discomfort. His been treated with Dilaudid alternating with morphine. He is taking Percocets 4-5 tablets a day at home for neuropathy. Currently maintaining O2 saturations in the mid 90s on 2 L/m per nasal cannula. He's been afebrile. Hemodynamically stable. Review of Systems Constitutional: Reports chronic pain, Reports weakness, Reports weight loss Eyes: denies blurred vision, denies decreased vision Ears: deny: decreased hearing Ears, nose, mouth and throat: Denies headache, Denies sore throat Cardiovascular: Reports dyspnea on exertion, Reports shortness of breath Respiratory: Reports cough, Reports dyspnea, Reports pain on inspiration, Reports pleurisy Gastrointestinal: Denies abdominal pain, Denies diarrhea, Denies nausea, Denies vomiting Genitourinary: Reports as per HPI Musculoskeletal: Reports as per HPI Integumentary: Denies pruritus, Denies rash Neurological: Reports gait dysfunction, Reports weakness Psychiatric: Reports anxiety Endocrine: Denies fatigue, Denies weight change Hematologic/Lymphatic: Reports as per HPI Allergic/Immunologic: Reports as per HPI Past Medical History Past Medical History: Coronary Artery Disease (CAD), Cancer, COPD, GERD/Reflux, Hyperlipidemia, Hypertension, Myocardial Infarction ([place]), Pneumonia Additional Past Medical History / Comment(s): 2009 diagnosed with multiple myeloma-tx with chemo and in 2010 had stem cell transplant, recently found L hilar mass-has had it biopsied and awaiting results, pt states he is on HTN med and cholesterol medications since his MIs prophylactically, gastric ulcer years ago, low back pain, neuropathy bilateral legs/feet since chemo for multiple myeloma treated, sinus problems. Last Myocardial Infarction Date:: 01/09/14, FEB 2005 History of Any Multi-Drug Resistant Organisms: None Reported Past Surgical History: Heart Catheterization, Heart Catheterization With Stent Additional Past Surgical History / Comment(s): 2011 Stem cell transplant, multiple bone marrow bxs, 08/08/18 and 08/16/18 bronchoscopies/biopsies/needle aspiration, EGD/colonoscopy. Past Anesthesia/Blood Transfusion Reactions: No Reported Reaction Additional Past Anesthesia/Blood Transfusion Reaction / Comment(s): Pt states he received blood in past without reaction. Date of Last Stent Placement:: 01/09/14 Smoking Status: Current every day smoker - Past Family History Father Family Medical History: Cancer Additional Family Medical History / Comment(s): LUNG CA Son(s) Family Medical History: Cancer Additional Family Medical History / Comment(s): BLADDER CA Mother Family Medical History: No Reported History Additional Family Medical History / Comment(s): Mother is healthy and is 86yrs old. Medications and Allergies Home Medications Medication Instructions Recorded Confirmed Type Famotidine 20 mg PO HS 01/08/14 08/22/18 History Gabapentin [Neurontin] 600 mg PO TID 01/08/14 08/22/18 History Atorvastatin [Lipitor] 40 mg PO DAILY@1200 03/24/14 08/22/18 History Acyclovir [Zovirax] 400 mg PO BID 08/06/18 08/22/18 History Cetirizine HCl [Zyrtec] 10 mg PO HS 08/06/18 08/22/18 History Lisinopril [Zestril] 2.5 mg PO DAILY@1200 08/06/18 08/22/18 History Nystatin 100,000 Unit/ml Susp 500,000 unit PO QID 08/22/18 08/22/18 History [Mycostatin Oral Susp] Prochlorperazine [Compazine] 10 mg PO Q6H PRN 08/22/18 08/22/18 History Pyridoxine HCl (Vitamin B6) 100 mg PO BID 08/22/18 08/22/18 History [Vitamin B-6] oxyCODONE-APAP 10-325MG [Percocet 1 tab PO Q4H PRN 08/22/18 08/22/18 History 10-325 mg] Allergies Allergy/AdvReac Type Severity Reaction Status Date / Time No Known Allergies Allergy Verified 08/22/18 09:38 Physical Exam Vitals: Vital Signs Temp Pulse Pulse Resp BP BP BP 08/22/18 11:55 98.7 F 62 20 126/58 08/22/18 07:40 97.5 F L 57 L 20 127/69 08/22/18 06:43 98.3 F 61 18 124/71 08/22/18 04:13 64 18 107/64 08/22/18 03:37 98.6 F 65 18 106/64 08/22/18 02:20 99.0 F 72 18 122/62 08/22/18 02:05 100.2 F H 72 18 118/63 08/22/18 01:50 101.6 F H 77 18 108/74 08/22/18 01:35 101.7 F H 89 18 113/63 08/22/18 01:20 101.7 F H 89 18 110/72 08/22/18 01:06 101.8 F H 94 18 94/63 08/22/18 00:57 98 20 118/65 Pulse Ox 08/22/18 11:55 95 08/22/18 07:40 08/22/18 06:43 93 L 08/22/18 04:13 93 L 08/22/18 03:37 95 08/22/18 02:20 95 08/22/18 02:05 95 08/22/18 01:50 94 L 08/22/18 01:35 94 L 08/22/18 01:20 95 08/22/18 01:06 93 L 08/22/18 00:57 97 Intake and Output 08/22/18 08/22/18 08/22/18 06:59 14:59 22:59 Output Total 400 Balance -400 Output: Urine 400 Other: Weight 79.379 kg 79.379 kg GENERAL EXAM: Alert, and oriented 3. In a significant amount of discomfort in the chest and lower extremities. On 2 L. HEAD: Normocephalic. EYES: Normal reaction of pupils, equal size. NOSE: Clear with pink turbinates. THROAT: No erythema or exudates. NECK: No masses, no JVD. CHEST: No chest wall deformity. LUNGS: Equal air entry with crackles in the bilateral posterior bases. CVS: S1 and S2 normal with no audible murmur, regular rhythm. ABDOMEN: No hepatosplenomegaly, normal bowel sounds, no guarding or rigidity. SPINE: No scoliosis or deformity SKIN: No rashes CENTRAL NERVOUS SYSTEM: No focal deficits, tone is normal in all 4 extremities. EXTREMITIES: There is no peripheral edema. No clubbing, no cyanosis. Peripheral pulses are intact. Results - Laboratory Findings CBC and BMP: 08/22/18 01:11 08/22/18 01:11 PT/INR, D-dimer PT 11.8 sec (9.0-12.0) 08/22/18 01:11 INR 1.1 (<1.2) 08/22/18 01:11 Abnormal lab findings: Abnormal Labs 08/22/18 08/22/18 08/22/18 01:11 01:11 01:11 RBC 2.51 L Hgb 8.8 L Hct 27.4 L MCV 109.3 H MCH 35.1 H RDW 18.6 H Plt Count 59 L Lymphocytes # 0.5 L APTT 21.2 L Chloride 109 H Carbon Dioxide 18 L BUN 27 H Glucose 133 H Plasma Lactic Acid Riccardo AST 16 L Alkaline Phosphatase 185 H Total Protein 5.8 L Albumin 3.0 L 08/22/18 01:11 RBC Hgb Hct MCV MCH RDW Plt Count Lymphocytes # APTT Chloride Carbon Dioxide BUN Glucose Plasma Lactic Acid Riccardo 3.3 H* AST Alkaline Phosphatase Total Protein Albumin - Diagnostic Findings Chest x-ray: image reviewed CT scan - chest: image reviewed Assessment and Plan Assessment: Impression: #1 Intractable left-sided chest discomfort suspect secondary to enlarging left upper lobe mass and new left pleural effusion with suspected bone metastasis. Patient has undergone 2 bronchoscopies with biopsies without diagnosis. PET scan did show SUV of 5.6 on the left upper lobe mass. New multiple bony lesions suspect secondary to possible lung cancer with bone metastases versus progressive multiple myeloma. #2 Left upper lobe mass of unclear etiology. Bronchoscopies with biopsies 2 revealed no malignancy. Suspicion remains. #3 New left pleural effusion secondary to above. #4 Multiple myeloma diagnosed back in 2010 status post bone marrow transplant and receives annual bone marrow biopsies. 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 #6 Coronary artery disease with multiple stent placements in 2005 MR recently in 2013. #7 Hypertension. #8 Hyperlipidemia. #9 Chronic and ongoing tobacco dependence. Plan: The patient was seen and evaluated by Dr. Zacarias. Pain management is the priority right now. Unfortunately due to his thrombocytopenia epidural catheter could not be placed. Continue with Dilaudid, morphine, fentanyl patch. Continue Percocet. We will plan for a thoracentesis hopefully in this admission and continue investigation for suspected lung cancer. He may require a CT-guided core lung biopsy in the interim we'll continue with current treatment plan. We'll continue to follow and make further recommendations based on his clinical status. I, the cosigning physician, performed a history & physical examination of the patient. Lungs sounds with scattered rhonchi more so on the left lung. Maintaining good O2 saturations in the 90s on 2 liters per minute per nasal cannula. I discussed the assessment and plan of care with my nurse practitioner , Sona Edmond. I attest to the above consultation as dictated by her. Time with Patient: Greater than 30
--- NOTE | 2018-08-22 20:12 | P.PAINCN ---
History of Present Illness - Reason for Consult Consult date: 08/22/18 - History of Present Illness This is a 63 years old male, with past medical history of multiple myeloma, and he is diagnosed with left upper lobe lung mass, is admitted to [facility] because of severe left sided chest pain, diagnostic study done computed tomography scan of the lung showed patient had left side pericarditis and left-sided pleural effusion, and patient had a compression fracture at T8 level, patient currently complaining severe intractable mid back pain with radiation to the left side of the chest wall, patient currently on Percocet 10/ 325 every 4 hours, and he continued to have severe intractable pain, he is also on baclofen 10 mg every 8 hours, and he was just started on IV Dilaudid ROUTER SETTER , after patient was started on the ROUTER SETTER pain improved slightly, pain management consultation was placed to the low thoracic epidural, but found out that the patient is thrombocytopenic his platelet count 59 K , it is contraindication to do regional anesthesia Past Medical History Past Medical History: Coronary Artery Disease (CAD), Cancer, COPD, GERD/Reflux, Hyperlipidemia, Hypertension, Myocardial Infarction ([place]), Pneumonia Additional Past Medical History / Comment(s): 2009 diagnosed with multiple myeloma-tx with chemo and in 2010 had stem cell transplant, recently found L hilar mass-has had it biopsied and awaiting results, pt states he is on HTN med and cholesterol medications since his MIs prophylactically, gastric ulcer years ago, low back pain, neuropathy bilateral legs/feet since chemo for multiple myeloma treated, sinus problems. Last Myocardial Infarction Date:: 01/09/14, FEB 2005 History of Any Multi-Drug Resistant Organisms: None Reported Past Surgical History: Heart Catheterization, Heart Catheterization With Stent Additional Past Surgical History / Comment(s): 2011 Stem cell transplant, multiple bone marrow bxs, 08/08/18 and 08/16/18 bronchoscopies/biopsies/needle aspiration, EGD/colonoscopy. Past Anesthesia/Blood Transfusion Reactions: No Reported Reaction Additional Past Anesthesia/Blood Transfusion Reaction / Comm: Pt states he received blood in past without reaction. Date of Last Stent Placement:: 01/09/14 Smoking Status: Current every day smoker - Past Family History Father Family Medical History: Cancer Additional Family Medical History / Comment(s): LUNG CA Son(s) Family Medical History: Cancer Additional Family Medical History / Comment(s): BLADDER CA Mother Family Medical History: No Reported History Additional Family Medical History / Comment(s): Mother is healthy and is 86yrs old. Medications and Allergies Home Medications Medication Instructions Recorded Confirmed Type Famotidine 20 mg PO HS 01/08/14 08/22/18 History Gabapentin [Neurontin] 600 mg PO TID 01/08/14 08/22/18 History Atorvastatin [Lipitor] 40 mg PO DAILY@1200 03/24/14 08/22/18 History Acyclovir [Zovirax] 400 mg PO BID 08/06/18 08/22/18 History Cetirizine HCl [Zyrtec] 10 mg PO HS 08/06/18 08/22/18 History Lisinopril [Zestril] 2.5 mg PO DAILY@1200 08/06/18 08/22/18 History Nystatin 100,000 Unit/ml Susp 500,000 unit PO QID 08/22/18 08/22/18 History [Mycostatin Oral Susp] Prochlorperazine [Compazine] 10 mg PO Q6H PRN 08/22/18 08/22/18 History Pyridoxine HCl (Vitamin B6) 100 mg PO BID 08/22/18 08/22/18 History [Vitamin B-6] oxyCODONE-APAP 10-325MG [Percocet 1 tab PO Q4H PRN 08/22/18 08/22/18 History 10-325 mg] Allergies Allergy/AdvReac Type Severity Reaction Status Date / Time No Known Allergies Allergy Verified 08/22/18 09:38 Physical Exam Vitals: Vital Signs Temp Pulse Pulse Resp BP BP BP 08/22/18 16:15 98.6 F 69 18 135/63 08/22/18 11:55 98.7 F 62 20 126/58 08/22/18 07:40 97.5 F L 57 L 20 127/69 08/22/18 06:43 98.3 F 61 18 124/71 08/22/18 04:13 64 18 107/64 08/22/18 03:37 98.6 F 65 18 106/64 08/22/18 02:20 99.0 F 72 18 122/62 08/22/18 02:05 100.2 F H 72 18 118/63 08/22/18 01:50 101.6 F H 77 18 108/74 02/27/19 01:35 101.7 F H 89 18 113/63 08/22/18 01:20 101.7 F H 89 18 110/72 08/22/18 01:06 101.8 F H 94 18 94/63 08/22/18 00:57 98 20 118/65 Pulse Ox 08/22/18 16:15 95 08/22/18 11:55 95 08/22/18 07:40 08/22/18 06:43 93 L 08/22/18 04:13 93 L 08/22/18 03:37 95 08/22/18 02:20 95 08/22/18 02:05 95 08/22/18 01:50 94 L 08/22/18 01:35 94 L 08/22/18 01:20 95 08/22/18 01:06 93 L 08/22/18 00:57 97 Intake and Output 08/22/18 08/22/18 08/22/18 06:59 14:59 22:59 Output Total 400 Balance -400 Output: Urine 400 Other: Weight 79.379 kg 79.379 kg Physical Examinations : -Constitutiona : Alert and oriented 3, complaining of severe mid back pain with radiation to the left side of the chest -HEENT : nech ; supple eyes : no ptosis , no icterus, no photophobia . ENT : normal of hearing , normal oropharynx , no Thrush . - Respiratory : Decreased breath sound, no wheezing , no Rhonchi . - Cardiovascula : regular rate and rhythem , S1 , S2 , no S3 , no S4. - Gastrointestina : abdomen soft no tenderness , bowel sounds , no organomegally . - Genitourinary : Defferred . - neurologic : Cranial nerve II to XII intact , no focal neurological deffecit - musculoskeltal : Thoracic Spine = severe tenderness over the midthoracic area from T7 to T9 levels Results CBC & Chem 7: 08/22/18 01:11 08/22/18 01:11 Labs: Abnormal Lab Results - Last 24 Hours (Table) 08/22/18 08/22/18 08/22/18 Range/Units 01:11 01:11 01:11 RBC 2.51 L (4.30-5.90) m/uL Hgb 8.8 L (13.0-17.5) gm/dL Hct 27.4 L (39.0-53.0) % MCV 109.3 H (80.0-100.0) fL MCH 35.1 H (25.0-35.0) pg RDW 18.6 H (11.5-15.5) % Plt Count 59 L (150-450) k/uL Lymphocytes # 0.5 L (1.0-4.8) k/uL APTT 21.2 L (22.0-30.0) sec Chloride 109 H (98-107) mmol/L Carbon Dioxide 18 L (22-30) mmol/L BUN 27 H (9-20) mg/dL Glucose 133 H (74-99) mg/dL Plasma Lactic Acid Riccardo (0.7-2.0) mmol/L AST 16 L (17-59) U/L Alkaline Phosphatase 185 H (38-126) U/L Total Protein 5.8 L (6.3-8.2) g/dL Albumin 3.0 L (3.5-5.0) g/dL 08/22/18 Range/Units 01:11 RBC (4.30-5.90) m/uL Hgb (13.0-17.5) gm/dL Hct (39.0-53.0) % MCV (80.0-100.0) fL MCH (25.0-35.0) pg RDW (11.5-15.5) % Plt Count (150-450) k/uL Lymphocytes # (1.0-4.8) k/uL APTT (22.0-30.0) sec Chloride (98-107) mmol/L Carbon Dioxide (22-30) mmol/L BUN (9-20) mg/dL Glucose (74-99) mg/dL Plasma Lactic Acid Riccardo 3.3 H* (0.7-2.0) mmol/L AST (17-59) U/L Alkaline Phosphatase (38-126) U/L Total Protein (6.3-8.2) g/dL Albumin (3.5-5.0) g/dL Comments: Computed tomography scan of the chest= left pleural effusion, compression fracture at T8 Assessment and Plan Plan: Assessment and plan= acute low back pain with radiation to the left side of the chest wall secondary to compression fractures thoracic spine Recommend continue Percocet 10/325 every 4 hours Continue IV Dilaudid ROUTER SETTER ,and in the future we can change it to fentanyl patch 25 g. Continue baclofen milligrams 3 times a day. he benefit from Lidoderm patch to be applied to the midback area 12 hours on 12 hours off Patient could be candidate for kyphoplasty , recommend spine consultation regarding kyphoplasty Time with Patient: Greater than 30 PQRS Measure Charge Sheet PQRS Narrative: Smoking Status Current every day smoker Blood Pressure [Left Arm] 135/63 Blood Pressure [Right Arm] 127/69 Blood Pressure 124/71 Pain Intensity [Left Upper 8 Shoulder] Pain Intensity 10 Pain Scale Used Numeric (1 - 10) Scale Used Numeric (1 - 10) Home Medications: Ambulatory Orders Famotidine 20 mg PO HS 01/08/14 Gabapentin [Neurontin] 600 mg PO TID 01/08/14 Atorvastatin [Lipitor] 40 mg PO DAILY@1200 03/24/14 Acyclovir [Zovirax] 400 mg PO BID 08/06/18 Cetirizine HCl [Zyrtec] 10 mg PO HS 08/06/18 Lisinopril [Zestril] 2.5 mg PO DAILY@1200 08/06/18 Nystatin 100,000 Unit/ml Susp [Mycostatin Oral Susp] 500,000 unit PO QID Prochlorperazine [Compazine] 10 mg PO Q6H PRN 08/22/18 Pyridoxine HCl (Vitamin B6) [Vitamin B-6] 100 mg PO BID 08/22/18 oxyCODONE-APAP 10-325MG [Percocet 10-325 mg] 1 tab PO Q4H PRN 08/22/18
--- NOTE | 2018-08-22 20:17 | P.CNOR ---
History of Present Illness - [facility] Consult date: 08/22/18 Requesting physician: Bal Blankenship Consult reason: fracture (T4 and T8 fracture deformities), back pain (Thoracic back pain) History of present illness: Patient is a very pleasant 63-year-old male with a significant medical history who is seen and examined at the bedside for further evaluation for thoracic back pain and compression fracture possibly metastatic. Patient states in 2009 he was diagnosed with nonsecreting myeloma. He underwent bone marrow transplant in 2010. He states his cancer was in remission and he continued to follow with Dr. Spangler in oncology. He underwent bone biopsies approximately twice per year. His remission remained intact until over the past 8-9 months and the cancer has returned. He had continued to work through with treatment with Dr. Spangler. Approximately 5 weeks ago he presented to the urgent care for treatment of a cold. Chest x-ray was taken at that time which showed evidence of a lung mass. Since that time he is followed up with Dr. Spangler. He states he underwent 2 lung biopsies with the first is result was negative for findings and the second results is currently pending. He states over the past 2 days he has been experiencing severe mid upper thoracic pain with pain radiating around the left scapula and towards the left nipple. He denies any specific injuries. He denies any lower extremity weakness and radiculopathy bilaterally. He denies any low back pain. He has had difficulty with any sort of mobility or ambulation given his pain. He states he normally takes Percocet 10 mg/325 mg 1 tab every 4 hours in outpatient setting for pain and this medication does not help control his current pain. He is currently receiving Dilaudid, Toradol, oxycodone, and using a lidocaine patch for pain control. 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 CT of the chest was performed during his presentation to the emergency department. Patient does admit to neuropathy over the past 8-9 years. Past Medical History Past Medical History: Coronary Artery Disease (CAD), Cancer, COPD, GERD/Reflux, Hyperlipidemia, Hypertension, Myocardial Infarction ([place]), Pneumonia Additional Past Medical History / Comment(s): 2009 diagnosed with multiple myeloma-tx with chemo and in 2010 had stem cell transplant, recently found L hilar mass-has had it biopsied and awaiting results, pt states he is on HTN med and cholesterol medications since his MIs prophylactically, gastric ulcer years ago, low back pain, neuropathy bilateral legs/feet since chemo for multiple myeloma treated, sinus problems. Last Myocardial Infarction Date:: 01/09/14, FEB 2005 History of Any Multi-Drug Resistant Organisms: None Reported Past Surgical History: Heart Catheterization, Heart Catheterization With Stent Additional Past Surgical History / Comment(s): 2010 Stem cell transplant, multiple bone marrow bxs, 08/08/18 and 08/16/18 bronchoscopies/biopsies/needle aspiration, EGD/colonoscopy. Past Anesthesia/Blood Transfusion Reactions: No Reported Reaction Additional Past Anesthesia/Blood Transfusion Reaction / Comm: Pt states he received blood in past without reaction. Date of Last Stent Placement:: 01/09/14 Smoking Status: Current every day smoker - Past Family History Father Family Medical History: Cancer Additional Family Medical History / Comment(s): LUNG CA Son(s) Family Medical History: Cancer Additional Family Medical History / Comment(s): BLADDER CA Mother Family Medical History: No Reported History Additional Family Medical History / Comment(s): Mother is healthy and is 86yrs old. Medications and Allergies Home Medications Medication Instructions Recorded Confirmed Type Famotidine 20 mg PO HS 01/08/14 08/22/18 History Gabapentin [Neurontin] 600 mg PO TID 01/08/14 08/22/18 History Atorvastatin [Lipitor] 40 mg PO DAILY@1200 03/24/14 08/22/18 History Acyclovir [Zovirax] 400 mg PO BID 08/06/18 08/22/18 History Cetirizine HCl [Zyrtec] 10 mg PO HS 08/06/18 08/22/18 History Lisinopril [Zestril] 2.5 mg PO DAILY@1200 08/06/18 08/22/18 History Nystatin 100,000 Unit/ml Susp 500,000 unit PO QID 08/22/18 08/22/18 History [Mycostatin Oral Susp] Prochlorperazine [Compazine] 10 mg PO Q6H PRN 08/22/18 08/22/18 History Pyridoxine HCl (Vitamin B6) 100 mg PO BID 08/22/18 08/22/18 History [Vitamin B-6] oxyCODONE-APAP 10-325MG [Percocet 1 tab PO Q4H PRN 08/22/18 08/22/18 History 10-325 mg] Allergies Allergy/AdvReac Type Severity Reaction Status Date / Time No Known Allergies Allergy Verified 08/22/18 09:38 Physical Examination Physical exam: Patient is awake, alert, and oriented 3 Vital signs stable Good chest excursion with deep inspiration and expiration Examination of thoracic and lumbar spine reveals skin is intact with no abrasions, lacerations, or bruises; no erythema, purulence or signs of infection Significant pain with rolling over in bed at the thoracic spine Significant pain with any movement of the thoracic spine Significant pain with palpation at the mid upper thoracic spine along the midline and towards the left Dorsiflexion, plantarflexion, and extensor hallucis longus positive sustained bilaterally Lower extremity strength 5/5 bilaterally No lower extremity hyperreflexia bilaterally Straight leg test negative bilateral lower extremities Patient is able to lift legs independently without significant difficulty No signs or symptoms of DVT; no calf pain No pain with internal and external rotation of the hips bilaterally Vascularly intact Patient is able to feel manipulation of bilateral feet and has decreased sensation Results Pertinent studies: CT chest taken on 08/22/2018: T4 sclerotic focus; T8 compression fracture deformity appearing more prominent; persistent left upper lobe mass; small moderate left pleural effusion with left basilar atelectasis/consolidation; small pericardial fluid with fat stranding at the left cardiophrenic angle - Labs Labs: Abnormal Lab Results - Last 24 Hours (Table) 08/22/18 08/22/18 08/22/18 Range/Units 01:11 01:11 01:11 RBC 2.51 L (4.30-5.90) m/uL Hgb 8.8 L (13.0-17.5) gm/dL Hct 27.4 L (39.0-53.0) % MCV 109.3 H (80.0-100.0) fL MCH 35.1 H (25.0-35.0) pg RDW 18.6 H (11.5-15.5) % Plt Count 59 L (150-450) k/uL Lymphocytes # 0.5 L (1.0-4.8) k/uL APTT 21.2 L (22.0-30.0) sec Chloride 109 H (98-107) mmol/L Carbon Dioxide 18 L (22-30) mmol/L BUN 27 H (9-20) mg/dL Glucose 133 H (74-99) mg/dL Plasma Lactic Acid Riccardo (0.7-2.0) mmol/L AST 16 L (17-59) U/L Alkaline Phosphatase 185 H (38-126) U/L Total Protein 5.8 L (6.3-8.2) g/dL Albumin 3.0 L (3.5-5.0) g/dL 08/22/18 Range/Units 01:11 RBC (4.30-5.90) m/uL Hgb (13.0-17.5) gm/dL Hct (39.0-53.0) % MCV (80.0-100.0) fL MCH (25.0-35.0) pg RDW (11.5-15.5) % Plt Count (150-450) k/uL Lymphocytes # (1.0-4.8) k/uL APTT (22.0-30.0) sec Chloride (98-107) mmol/L Carbon Dioxide (22-30) mmol/L BUN (9-20) mg/dL Glucose (74-99) mg/dL Plasma Lactic Acid Riccardo 3.3 H* (0.7-2.0) mmol/L AST (17-59) U/L Alkaline Phosphatase (38-126) U/L Total Protein (6.3-8.2) g/dL Albumin (3.5-5.0) g/dL H & H 08/22/18 Range/Units 01:11 Hgb 8.8 L (13.0-17.5) gm/dL Hct 27.4 L (39.0-53.0) % Coagulation 08/22/18 Range/Units 01:11 INR 1.1 (<1.2) Result Diagrams: 08/22/18 01:11 08/22/18 01:11 Assessment and Plan Assessment: Assessment: Severe intractable thoracic back pain Thoracic radiculopathy T4 sclerotic focus T8 compression fracture deformity Left upper lobe lung mass History of nonsecreting myeloma History of bone marrow transplant (1) Thoracic radiculopathy Current Visit: Yes Status: Acute Code(s): M54.14 - RADICULOPATHY, THORACIC REGION SNOMED Code(s): 13192529 (2) Acute thoracic back pain Current Visit: Yes Status: Acute Code(s): M54.6 - PAIN IN THORACIC SPINE SNOMED Code(s): 351306984 (3) Compression fracture of T8 vertebra Current Visit: Yes Status: Acute Code(s): S22.060A - WEDGE COMPRESSION FRACTURE OF T7-T8 VERTEBRA, INIT SNOMED Code(s): 416195603 (4) Myeloma Current Visit: Yes Status: Acute Code(s): C90.00 - MULTIPLE MYELOMA NOT HAVING ACHIEVED REMISSION SNOMED Code(s): 253370151 (5) History of bone marrow transplant Current Visit: Yes Status: Acute Code(s): Z94.81 - BONE MARROW TRANSPLANT STATUS SNOMED Code(s): 5356101380031 (6) Mass of upper lobe of left lung Current Visit: Yes Status: Acute Code(s): R91.8 - OTHER NONSPECIFIC ABNORMAL FINDING OF LUNG FIELD SNOMED Code(s): 642309484 Plan: Plan: 1. Patient has been discussed in detail with Dr. Sam Lewis. Patient has been experiencing significant and debilitating thoracic back pain with radiculopathy over the past [address] imaging does show evidence of bony changes at T4 and T8. Patient also has a history of nonsecreting myeloma. He is recently diagnosed with a left upper lobe mass of unknown origin. He is undergone 2 lung biopsies with pending results of the second biopsy. He feels his symptoms are uncontrollable and he is unable to perform any regular activities of daily living given his symptoms. Patient denies having a pacemaker. At this time, we will plan to obtain an MRI of the thoracic spine for further evaluation. Following results of that MRI, we may plan to proceed forward with kyphoplasty with biopsy. We will determine the exact and appropriate surgical intervention depending on the MRI results. Following the completion of the MRI we will review the imaging and follow-up with an appropriate plan of care proceeding forward. 2. Continue pain control with medications as prescribed by other providers 3. Patient will continue to be seen and examined by Dr. Blankenship in oncology, medicine and other medical providers Time with Patient: Greater than 30 (Including obtaining history, physical examination, reviewing of imaging, and dictation.)
--- NOTE | 2018-08-22 23:01 | P.CONS ---
History of Present Illness - Reason for Consult Consult date: 08/22/18 - History of Present Illness The patient was diagnosed with non-secretory multiple myeloma in April,.He induction with 4 cycles of Velcade/Decadron followed by autologous stem cell transplant in .He declined maintenance revlimid. He had a repeat bone marrow biopsy at [facility] on 10/10/2011.He had a repeat bone survey in which was stable. Myeloma evaluation sincerely revealed no evidence of progression till 02/08 He received zometa monthly and then every 3 months until then changed to every 6 months. On 02/15/2016,bone marrow biopsy revealed 50% monoclonal plasma cells.On 2015,skeletal bone survey revealed no new lytic lesions.On 02/20/2016,PET/CT scan revealed no evidence of active lesions in the marrow. On 08/29/2016,repeat bone marrow biopsy revealed 30-40% monolocnal plasma cells, stable compared to prior bone marrow in . On 09/10/2016,repeat PET scan revealed stable and non specific finding compared to prior PET scan in .On 03/31/2017,SPEP,immunofixation revealed no monocloncal protein,normal CMP,CBC He had worsening anemia in September/2017,repeat PET scan on 10/21/2017 revealed no new lesions,repeat bone marrow biopsy on 11/01/2017 revealed 60% plasma cells, normal cytogenetics,FISH was positive for t(11,14) (previously he had t(11,14) After discussiong options with him,it was decided to start ixazomib/revlimid/ dex regimen (ixazomib was chosen due to less risk of neuropathy).He started ixazomib/revlimid/dex on 11/19/2017. he responded to the same with 03/12/2018 bone marrow biopsy revealed residual 10-20% plasma cell On 06/29/2018,ixazomib/revlimid/dex were held due to significant pancytopenia. On 07/06/2018,repeat bone marrow biopsy revealed 20-30% plasma cells (as per my discussion with pathologist,it was felt relatively stable compared to prior bone marrow biopsy),FISH revealed t(11,14) translocation. he was continued on observation On 07/28/2018,repeat PET scan revealed new osseous lesions and new large left infrahilar lung mass. He had been feeling tired , with a cough for about a month,lost significant weight over the last month,no appetite,he has his chronic arthritic pain and peripheral neuropathy,using percocet as needed. It was felt that this finding could represent a new lung primary with metastatic disease, versus progression of myeloma itself. He had bronchoscopy with biopsy 2 in 08/14, both of which were negative for any evidence of malignancy, and therefore nondiagnostic. The patient presented to the hospital, complaining of acute onset of mid to slightly left of midline back pain between the shoulder blades, radiating to the front. He describes that is quite severe 8-9/10, not relieved with Nitro. He had been feeling somewhat short of breath over the last couple of days. He had also noted some subjective fevers. The pain apparently woke him up from sleep. EMS was called and the patient had significant relief with fentanyl. He had cardiac workup with enzymes being negative in the ER. CT of the chest with contrast was performed, showing no definite new infiltrate or effusion. Parenchymal/pleural inflammation adjacent to the known lung mass was not ruled out. A T8 compression fracture was noted felt to be new. Consult was therefore placed for further evaluation and recommendations. His blood counts had shown evidence of bicytopenia. Review of Systems Constitutional: Reports fatigue, Reports fever, Reports poor appetite, Reports weight loss Eyes: denies blurred vision, denies pain Ears: deny: decreased hearing, ear discharge, earache, tinnitus Ears, nose, mouth and throat: Denies headache, Denies sore throat Cardiovascular: Reports decreased exercise tolerance Respiratory: Reports cough, Reports dyspnea Gastrointestinal: Denies abdominal pain, Denies diarrhea, Denies nausea, Denies vomiting Genitourinary: Reports as per HPI Musculoskeletal: Reports as per HPI Integumentary: Denies pruritus, Denies rash Neurological: Reports weakness, Denies numbness Psychiatric: Denies anxiety, Denies depression Endocrine: Reports fatigue, Reports weight change Hematologic/Lymphatic: Reports as per HPI Past Medical History Past Medical History: Coronary Artery Disease (CAD), Cancer, COPD, GERD/Reflux, Hyperlipidemia, Hypertension, Myocardial Infarction ([place]), Pneumonia Additional Past Medical History / Comment(s): 2009 diagnosed with multiple myeloma-tx with chemo and in 2010 had stem cell transplant, recently found L hilar mass-has had it biopsied and awaiting results, pt states he is on HTN med and cholesterol medications since his MIs prophylactically, gastric ulcer years ago, low back pain, neuropathy bilateral legs/feet since chemo for multiple myeloma treated, sinus problems. Last Myocardial Infarction Date:: 01/09/14, FEB 2005 History of Any Multi-Drug Resistant Organisms: None Reported Past Surgical History: Heart Catheterization, Heart Catheterization With Stent Additional Past Surgical History / Comment(s): 2011 Stem cell transplant, multiple bone marrow bxs, 08/08/18 and 08/16/18 bronchoscopies/biopsies/needle aspiration, EGD/colonoscopy. Past Anesthesia/Blood Transfusion Reactions: No Reported Reaction Additional Past Anesthesia/Blood Transfusion Reaction / Comm: Pt states he received blood in past without reaction. Date of Last Stent Placement:: 01/09/14 Smoking Status: Current every day smoker - Past Family History Father Family Medical History: Cancer Additional Family Medical History / Comment(s): LUNG CA Son(s) Family Medical History: Cancer Additional Family Medical History / Comment(s): BLADDER CA Mother Family Medical History: No Reported History Additional Family Medical History / Comment(s): Mother is healthy and is 86yrs old. Medications and Allergies Home Medications Medication Instructions Recorded Confirmed Type Famotidine 20 mg PO HS 01/08/14 08/22/18 History Gabapentin [Neurontin] 600 mg PO TID 01/08/14 08/22/18 History Atorvastatin [Lipitor] 40 mg PO DAILY@1200 03/24/14 08/22/18 History Acyclovir [Zovirax] 400 mg PO BID 08/06/18 08/22/18 History Cetirizine HCl [Zyrtec] 10 mg PO HS 08/06/18 08/22/18 History Lisinopril [Zestril] 2.5 mg PO DAILY@1200 08/06/18 08/22/18 History Nystatin 100,000 Unit/ml Susp 500,000 unit PO QID 08/22/18 08/22/18 History [Mycostatin Oral Susp] Prochlorperazine [Compazine] 10 mg PO Q6H PRN 08/22/18 08/22/18 History Pyridoxine HCl (Vitamin B6) 100 mg PO BID 08/22/18 08/22/18 History [Vitamin B-6] oxyCODONE-APAP 10-325MG [Percocet 1 tab PO Q4H PRN 08/22/18 08/22/18 History 10-325 mg] Allergies Allergy/AdvReac Type Severity Reaction Status Date / Time No Known Allergies Allergy Verified 08/22/18 09:38 Physical Exam Vitals: Vital Signs Temp Pulse Pulse Resp BP BP BP 08/22/18 11:55 98.7 F 62 20 126/58 08/22/18 07:40 97.5 F L 57 L 20 127/69 08/22/18 06:43 98.3 F 61 18 124/71 08/22/18 04:13 64 18 107/64 08/22/18 03:37 98.6 F 65 18 106/64 08/22/18 02:20 99.0 F 72 18 122/62 08/22/18 02:05 100.2 F H 72 18 118/63 08/22/18 01:50 101.6 F H 77 18 108/74 08/22/18 01:35 101.7 F H 89 18 113/63 08/22/18 01:20 101.7 F H 89 18 110/72 08/22/18 01:06 101.8 F H 94 18 94/63 08/22/18 00:57 98 20 118/65 Pulse Ox 08/22/18 11:55 95 08/22/18 07:40 08/22/18 06:43 93 L 08/22/18 04:13 93 L 08/22/18 03:37 95 08/22/18 02:20 95 08/22/18 02:05 95 08/22/18 01:50 94 L 08/22/18 01:35 94 L 08/22/18 01:20 95 08/22/18 01:06 93 L 08/22/18 00:57 97 Intake and Output 08/22/18 08/22/18 08/22/18 06:59 14:59 22:59 Output Total 400 Balance -400 Output: Urine 400 Other: Weight 79.379 kg 79.379 kg - Constitutional General appearance: severe distress (due to pain) - EENT Eyes: EOMI, PERRLA ENT: hearing grossly normal, normal oropharynx - Neck Neck: no lymphadenopathy Thyroid: bilateral: normal size - Respiratory Respiratory: bilateral: CTA - Cardiovascular Rhythm: regular Heart sounds: normal: S1, S2 - Gastrointestinal General gastrointestinal: normal bowel sounds, soft - Integumentary Integumentary: normal - Neurologic Neurologic: CNII-XII intact - Musculoskeletal Marked tenderness to palpation thoracic spine -lower interscapular area Musculoskeletal: generalized weakness, strength equal bilaterally - Psychiatric Psychiatric: A&O x's 3, appropriate affect, intact judgment & insight Results CBC & Chem 7: 08/22/18 01:11 08/22/18 01:11 Labs: Abnormal Lab Results - Last 24 Hours (Table) 08/22/18 08/22/18 08/22/18 Range/Units 01:11 01:11 01:11 RBC 2.51 L (4.30-5.90) m/uL Hgb 8.8 L (13.0-17.5) gm/dL Hct 27.4 L (39.0-53.0) % MCV 109.3 H (80.0-100.0) fL MCH 35.1 H (25.0-35.0) pg RDW 18.6 H (11.5-15.5) % Plt Count 59 L (150-450) k/uL Lymphocytes # 0.5 L (1.0-4.8) k/uL APTT 21.2 L (22.0-30.0) sec Chloride 109 H (98-107) mmol/L Carbon Dioxide 18 L (22-30) mmol/L BUN 27 H (9-20) mg/dL Glucose 133 H (74-99) mg/dL Plasma Lactic Acid Riccardo (0.7-2.0) mmol/L AST 16 L (17-59) U/L Alkaline Phosphatase 185 H (38-126) U/L Total Protein 5.8 L (6.3-8.2) g/dL Albumin 3.0 L (3.5-5.0) g/dL 08/22/18 Range/Units 01:11 RBC (4.30-5.90) m/uL Hgb (13.0-17.5) gm/dL Hct (39.0-53.0) % MCV (80.0-100.0) fL MCH (25.0-35.0) pg RDW (11.5-15.5) % Plt Count (150-450) k/uL Lymphocytes # (1.0-4.8) k/uL APTT (22.0-30.0) sec Chloride (98-107) mmol/L Carbon Dioxide (22-30) mmol/L BUN (9-20) mg/dL Glucose (74-99) mg/dL Plasma Lactic Acid Riccardo 3.3 H* (0.7-2.0) mmol/L AST (17-59) U/L Alkaline Phosphatase (38-126) U/L Total Protein (6.3-8.2) g/dL Albumin (3.5-5.0) g/dL Comments: echocardiogram report reviewed Chest x-ray: report reviewed CT scan - chest: report reviewed Assessment and Plan (1) Acute thoracic back pain Narrative/Plan: the patient had initially come in with concern for chest pain. On evaluation , it appears that the pain is actually in the mid back with radiation towards the anterior chest. the patient has had cardiac workup, with enzymes negative, as well as CT Chest which was negative for PE. On physical exam there was marked tenderness to palpation over the thoracic spine around the T8 area, where compression fracture was also noted on CT, which was felt to be new. Therefore, clinically, this appears to be the most likely source of his acute pain. The patient's pain is not well controlled with his current regimen. Morphine frequency will be increased to every 3 hours. Orthopedic spine surgery will be consulted. Current Visit: Yes Status: Acute Code(s): M54.6 - PAIN IN THORACIC SPINE SNOMED Code(s): 003229656 (2) Compression fracture of T8 vertebra Narrative/Plan: this appears to be The source of the patient's pain as noted. This is a new finding on CT scan. The patient is at risk for the same, given high risk for reduced bone density due to myeloma and its treatment. In addition the patient' s recent PET scan showed osseous lesions in addition to the lung mass. Based on his history, possible expiration could be compression fracture, pathologic or otherwise, caused by coughing due to URTI or pneumonia. Plan as noted above Current Visit: Yes Status: Acute Code(s): S22.060A - WEDGE COMPRESSION FRACTURE OF T7-T8 VERTEBRA, INIT SNOMED Code(s): 522814356 (3) Bicytopenia Narrative/Plan: Chronic, with some worsening. This is due to his history of myeloma, as well as treatment for the same. Given his recent history, there could be progression. Protein electrophoresis studies will be repeated. Currently counts are in a safe range. Continue to monitor with supplementation if needed Current Visit: Yes Status: Acute Code(s): D75.89 - OTHER SPECIFIED DISEASES OF BLOOD AND BLOOD-FORMING ORGANS SNOMED Code(s): 267168963 (4) Mass of upper lobe of left lung Narrative/Plan: at this time exact etiology is not known. primary lung mass, versus lung plasmacytoma. He has had 2 bronchoscopies, conventional and navigational, which have been nondiagnostic. I will discuss with pulmonary about considering a possible thoracoscopic biopsy, once the patient is more stable Current Visit: Yes Status: Acute Code(s): R91.8 - OTHER NONSPECIFIC ABNORMAL FINDING OF LUNG FIELD SNOMED Code(s): 904618243 (5) Myeloma Narrative/Plan: history of the same as noted above. At this time progression remains a concern , in addition to possible new primary. Protein electrophoresis studies will be repeated as noted Current Visit: Yes Status: Acute Code(s): C90.00 - MULTIPLE MYELOMA NOT HAVING ACHIEVED REMISSION SNOMED Code(s): 432881802
[2018-08-22 23:05] LABS: Cholesterol 72 mg/dL (<200); HDL Cholesterol 16 mg/dL (40-60); LDL Cholesterol,Calculated 32 mg/dL (0-99); Triglycerides 122 mg/dL (<150)
[2018-08-22] MEDS ORDERED: PROCHLORPERAZINE 10 MG TAB PO PRN (23:10)
[2018-08-22] MEDS: LORATADINE 10 MG TAB PO SCH (23:42)
[2018-08-22] MEDS: FAMOTIDINE 20 MG TAB PO SCH (23:42)
[2018-08-22] MEDS: GABAPENTIN 300 MG CAP PO SCH (23:42)
[2018-08-23] MEDS: CLOTRIMAZOLE TROCHE 10 MG TROCHE PO SCH ×6 (01:21→23:03)
[2018-08-23] MEDS: KETOROLAC 30 MG/ML 1 ML VIAL IVP SCH ×5 (01:21→23:11)
[2018-08-23] MEDS: ACYCLOVIR 200 MG CAP PO SCH ×3 (05:51→20:30)
--- NOTE | 2018-08-23 06:57 | HP ---
HISTORY AND PHYSICAL DATE OF ADMISSION: 08/22/2018 PRESENTING COMPLAINT: Back pain. HISTORY OF PRESENTING COMPLAINT: This is a pleasant 63-year-old patient who follows with family doctor, Dr. Coelho. Chronic stable medical conditions include coronary artery disease, hyperlipidemia, hypertension, multiple myeloma, previous bone marrow transplant in [address] Reynolds. The patient also recently was found to have a left upper lung mass, did have a PET scan done. The patient did have a bronchoscopy with biopsy that showed possibly squamous cell unclear entirely right now and subsequently it was negative for malignancy. The patient now presents with left-sided back pain radiating to the left chest anteriorly with significant amount of pain. The pain started rather suddenly. A CT scan of the chest were done. Because of significant pain, Dilaudid was started. The patient also has peripheral neuropathy. REVIEW OF SYSTEMS: CONSTITUTIONAL: Tired. HEENT: None. RESPIRATORY: As above. CARDIOVASCULAR: None. GASTROINTESTINAL: Occasional heartburn. GENITOURINARY: None. MUSCULOSKELETAL: Some pain in the joints including back pain. DERMATOLOGICAL: None. HEMATOLOGIC: None. LYMPHATIC: None. PSYCHIATRY: Anxiety. NEUROLOGICAL: Peripheral neuropathy. PAST MEDICAL HISTORY: Coronary artery disease, COPD GERD, hyperlipidemia, hypertension, multiple myeloma in 2009 had stem cell transplant, left hilar lung mass, pending final determination, gastric ulcer, low back pain, peripheral neuropathy. PAST SURGICAL HISTORY: Cardiac cath with stent, stem cell transplant, bone marrow biopsies, bronchoscopies. SOCIAL HISTORY: . Smoking for close to 50 years. Quit alcohol in 1993. FAMILY HISTORY: Family history of lung cancer. HOME MEDICATIONS: 1. Percocet 10 one tablet q.4 p.r.n. 2. Vitamin B6, 100 mg b.i.d. 3. Compazine 10 mg q.6 p.r.n. 4. Nystatin 500,000 units q.i.d. 5. Zestril 2.5 p.o. daily. 6. Neurontin 600 mg t.i.d. 7. Pepcid 20 mg q.h.s. 8. Cetirizine 10 mg q.h.s. 9. Lipitor 40 mg p.o. daily. 10.Zovirax 400 mg b.i.d. ALLERGIES: None. PHYSICAL EXAMINATION: On examination, temperature 98.7, pulse 62, respiration 20, blood pressure 126/58, pulse ox 95% on 2 L. GENERAL APPEARANCE: Average build, lying in bed somewhat uncomfortable. EYES: Pupils equal. Conjunctivae normal. HENT: External appearance of nose and ears normal. Oral cavity normal. NECK: JVD not raised. Mass not palpable. RESPIRATORY: Effort increased. LUNGS: Diminished breath sounds. CARDIOVASCULAR: First and second sounds normal. No edema. ABDOMEN: Soft, nontender. Liver and spleen not palpable. LYMPHATIC: No lymph nodes palpable in neck or axillae. PSYCHIATRY: Alert and oriented x3. Mood and affect anxious appearing. NEUROLOGICAL: Pupils equal. Cranial nerves grossly intact. Power and sensation grossly intact. INVESTIGATIONS: White count 5.1, hemoglobin 8.8, platelets 59. Potassium 3.9, BUN 27, creatinine 1.01. Albumin 3.0. Chest x-ray film personally reviewed by me shows a left pleural effusion, left lung mass, prominent hilar. EKG tracing personally reviewed by me shows nonspecific ST-T segment changes. A 2D echocardiogram shows severe hypokinesis, EF 40% to 45%. ASSESSMENT: 1. Acute compression fracture of T8 vertebra with some radiculopathy. 2. Coronary artery disease. 3. Chronic obstructive pulmonary disease in a current smoker. 4. Gastroesophageal reflux disease. 5. Hyperlipidemia. 6. Essential hypertension. 7. Left lung mass, being worked up. 8. History of multiple myeloma with chemo and stem cell transplant in 2009. 9. Peripheral neuropathy from chemotherapy. 10.Macrocytic anemia with low platelets that is bicytopenia. 11.Metabolic acidosis. 12.Lactic acidosis. PLAN: Consultation was made to Pain Management, Orthopedics, oncology, Pulmonary and Cardiology. Home medications are resumed. Pain management is in place. Care was discussed with the patient and family at the bedside. Questions were answered. Sodium bicarbonate will be added. MMODL / IJN: [id number] /
[2018-08-23] MEDS ORDERED: NON-FORMULARY DRUG (Pyridoxine Hcl (Vitamin B6) [Vitamin B-6] 100 MG) PO SCH (09:00)
[2018-08-23] MEDS: SODIUM BICARBONATE TAB 650 MG TAB PO SCH ×3 (09:01→20:31)
[2018-08-23] MEDS: GABAPENTIN 300 MG CAP PO SCH ×3 (09:01→20:31)
[2018-08-23] MEDS: ASPIRIN 325 MG TAB PO SCH (09:01)
[2018-08-23] MEDS: LIDOCAINE 5% PATCH TOPICAL SCH (09:05)
[2018-08-23] MEDS ORDERED: DIAZEPAM 5 MG TAB PO STA (10:00)
[2018-08-23 11:29] LABS: Protein, Total 4.7 g/dL (6.2-8.2)
--- NOTE | 2018-08-23 11:31 | P.PN ---
Progress Note - Text Progress Note Date: 08/23/18 Patient is seen and examined today at bedside. He is a very pleasant 63-year- old male who had acute onset of thoracic back pain that started several days ago when he is just twisting rolling in bed. Due to the pain was severe and stabbing in his mid back more on the left than the right. His significant worse when he tries to move and when he coughs and sneezes. I reviewed his imaging with his computed tomography scan yesterday and reviewed the case at length yesterday with Andrez Green our physician special education teaching assistant. We performed a H&P yesterday and consult which I am in agreement with for Mr. We ordered a thoracic MRI yesterday which is still pending. The patient says that his thoracic pain is significantly better today than it was yesterday. He is still having pain when he coughs. The pain is primarily localized at the mid thoracic spine just to the left of center and radiates toward the anterior aspect of his chest. He is not having shortness of breath. He is not having changes in bowel bladder function. He is not having weakness in his lower extremities. On exam He's afebrile stable vital signs today. He is on nasal cannula. His chest has good excursion with deep inspection expiration Abdomen soft nontender His lower extremities have sustained dorsal and plantar flexion and EHL intact. He is able lift his legs up off the bed independently. There is no pain with internal/external rotation of his hips. Fine calf soft nontender bilaterally. At his back there is no open wounds lacerations or abrasions he has significant paravertebral spasm around his scapula on the left. This is around the level of his mid thoracic spine. There is no point tenderness at the midline. There is no skin changes. The computed tomography scan was reviewed and shows evidence of compression deformity at approximate T8. They mention a bony sclerosis at T4 but I am unable to appreciate that. Assessment and plan Thoracic back pain, acute T8 vertebral compression deformity of undetermined age Uncertain T4 vertebral bony sclerosis History of myeloma No acute neurologic changes On evaluation the patient the clinical picture seems to suggest possible rib issue or occult rib fracture on the left as he is having trouble with his motion and particularly with coughing. This would also explain some of the radiating pain toward his anterior chest. He has had cardiac workup as well but this seems to be stable. There is a compression deformity at T8 which may be contributing to his symptoms as well. It is difficult to determine the age of the compression deformity and an MRI would certainly help us to delineate if there is changes within the vertebral body that would be amenable for treatment. The possible treatment including the possibility of bracing versus the possibility of kyphoplasty with biopsy. I do not see compression deformity at T4. We will await the results of the MRI later today and have further suggestions follow. At this point is okay for him to mobilize had to his comfort without heavy activity. It would be difficult to brace him and may not be necessary if this turns out to be more of a rib issue. She continue with his medical management as well. We will continue him closely.
[2018-08-23] MEDS: ATORVASTATIN 40 MG TAB PO SCH (12:29)
--- NOTE | 2018-08-23 13:59 | XR ---
EXAMINATION TYPE: XR chest 1V portable DATE OF EXAM: 08/23/2018 COMPARISON: Prior chest x-ray 08/22/2018 HISTORY: Status post left thoracentesis TECHNIQUE: Single frontal view of the chest is obtained. FINDINGS: No evident pneumothorax. Abnormal opacity within the left chest persists. IMPRESSION: No evident complication status post thoracentesis.
[2018-08-23] MEDS: LISINOPRIL 2.5 MG TAB PO SCH (14:56)
--- NOTE | 2018-08-23 15:02 | P.PN ---
Subjective Progress Note Date: 08/23/18 This is a pleasant 63-year-old gentleman with history of coronary artery disease and prior stent placements, in 2010 he underwent a stem cell transplant, nicotine dependence, has had multiple bone marrow biopsies, also earlier this month has undergone bronchoscopies, biopsies, and needle aspiration , hypertension, hyperlipidemia, who follows with Dr. Her in the office. Patient most recently he has also been found to have a lung mass, being followed by Dr. Zacarias as an outpatient. He presents to the hospital on this occasion with fairly sudden onset of upper back discomfort radiating through to his chest, he has a considerable sweats associated with this. He describes his pain as very sharp and stabbing in nature. There was attempts made today for the patient to go down to have a pain pump inserted, but because of his platelet count this was deferred. Patient was also found to have a significant pleural effusion for which he may undergo a thoracentesis. CAT scan of the chest was performed which revealed small to moderate left pleural effusion with a left basilar atelectasis. Persistent left upper lobe mass. Small amount of pericardial fluid, with fat stranding at the left costophrenic angle. Compression deformities noted. Echocardiogram with Doppler study was performed which revealed an ejection fraction of 40-45%. Septal hypokinesia noted. No mention of any pericardial effusion. EKG shows normal sinus rhythm with nonspecific ST-T wave changes. White blood cell count 5.1, hemoglobin 8.8, platelet count 59. Sodium 138, potassium 3.9, BUN 27, creatinine 1.0. Plasma lactic acid on admission 3.3, 1.2 this morning, magnesium 1.9, BNP 5240, troponins negative 3. Influenza A and B-. At the time of my examination, patient is in a moderate to severe amount of pain in his right upper back and right upper chest area. Extremely diaphoretic. Patient was seen and examined this morning, overall feeling significantly better. Underwent a thoracentesis today. Blood pressure 90/50 with a heart rate in the 90s, 91% on 2 L of oxygen. Objective - Vital Signs Vital signs: Vital Signs Temp 98.2 F 08/23/18 12:00 Pulse 92 08/23/18 12:00 Resp 16 08/23/18 12:00 BP 91/51 08/23/18 12:00 Pulse Ox 91 L 02/28/19 12:00 Intake & Output 08/22/18 08/23/18 08/23/18 18:59 06:59 18:59 Intake Total 329 240 Output Total 400 350 500 Balance -400 -21 -260 Weight 79.379 kg 78 kg Intake: IV 40 0.9 40 Intake, IV Titration 49 Amount HYDROmorphone (PF) 10 mg 49 In Sodium Chloride 0.9% 49 ml @ As Directed IV PER PROTOCOL PRN Rx#: [id number] Oral 240 240 Output: Urine 400 350 500 Other: Voiding Method Urinal Urinal # Voids 1 - Exam PHYSICAL EXAMINATION: GENERAL: 63-year-old gentleman in no acute distress at the time of my examination HEENT: Head is atraumatic, normocephalic. Pupils equal, round. Sclera anicteric. Conjunctiva are clear. Mucous membranes of the mouth are moist. Neck is supple. There is no elevated jugular venous pressure. No carotid bruit is heard. HEART EXAMINATION: Heart S1, S2 normal. No murmur or gallop heard. CHEST EXAMINATION: Lungs reveal improvement in air entry bilaterally. ABDOMEN: Soft, nontender. Bowel sounds are heard. No organomegaly noted. EXTREMITIES: 2+ peripheral pulses with no evidence of peripheral edema and no calf tenderness noted. NEUROLOGIC patient is awake, alert and oriented 3 . . - Labs CBC & Chem 7: 08/22/18 01:11 08/22/18 01:11 Labs: Abnormal Lab Results - Last 24 Hours (Table) 08/22/18 08/23/18 Range/Units 01:11 06:58 Total Protein (PEP) 4.7 L (6.2-8.2) g/dL HDL Cholesterol 16 L (40-60) mg/dL Microbiology - Last 24 Hours (Table) 08/22/18 01:11 Blood Culture - Preliminary Blood No Growth after 24 hours Assessment and Plan Plan: Assessment and plan #1 right upper back and upper chest discomfort, atypical for acute coronary syndrome, troponins negative 3. #2 pleural effusion, possibly may undergo a thoracentesis #3 recent identification of the lung mass, being followed by pulmonary as an outpatient. #4 known history of coronary artery disease with prior stenting #5 nicotine dependence #6 diabetes #7 hypertension #8 hyperlipidemia #9 thrombocytopenia Plan Echocardiogram with Doppler study was performed which revealed an ejection fraction of 40-45%. There is no evidence of pulmonary of hypertension, no evidence of any pericardial effusion. I'm cardiology's perspective, we'll follow this patient now with you on an as-needed basis only, please don't hesitate to call with any questions. DNP note has been reviewed, I agree with a documented findings and plan of care. Patient was seen and examined.
[2018-08-23 16:16] LABS: Appearance,BF Cloudy; Color,BF Yellow
[2018-08-23 16:17] LABS: Nucleated Cells, Body Fluid 690 /uL; RBC, Body Fluid 1430 /uL
[2018-08-23 16:22] LABS: Mononuclear WBC,Body Fluid 11 %; Polynuclear WBC,Body Fluid 88 %; Total Cells Counted,Body Fluid 100
--- NOTE | 2018-08-23 17:33 | P.PN ---
Subjective Progress Note Date: 08/23/18 Principal diagnosis: Large left-sided pleural effusion, left lung mass This is a very pleasant 63-year-old gentleman who follows with Dr. Coelho as his primary care physician. He has a history of coronary artery disease with previous stent placements in 2004, 2013, hyperlipidemia, hypertension, multiple myeloma with previous bone marrow transplant in 2010, annual bone marrow biopsies and follows with Dr. Reynolds for the same. He also has a more recent history of a large left upper lobe lung mass. PET scan from 07/28/2018 revealed hypermetabolic left hilar reticulated lesion measuring 4.2 x 2.8 with a max SUV of 5.6. Primary lung carcinoma within the differential. There is also new hypermetabolic focus in the left lateral mid rib with a max SUV of 2.94. There were new hypermetabolic foci in the thoracic spine with a max SUV of 3.7. There is a more prominent hypermetabolic focus at T8 with a max SUV of 11.83. There is also new hypermetabolic focus in the right upper sacrum with a max SUV of 7.12. No definitive corresponding lytic lesion was present. He had undergone bronchoscopy with transbronchial biopsies on 08/08/2018 which revealed no evidence of malignancy, he had a subsequent navigational bronchoscopy on 08/16/2018 with more specific transbronchial biopsies and transbronchial needle aspirates, washes and brushings all of which were negative for malignancy. His PET scan does show uptake with an SUV value of 5.6 in that area. The patient presented here to the emergency room early this morning with complaints of significant left-sided posterior back pain which was radiating through to his left chest anteriorly. He was quite uncomfortable. CT scan of the chest revealed a small to moderate left pleural effusion with left basilar atelectasis/consolidation. There is persistent left upper lobe mass. Small pericardial effusion. EKG revealed normal sinus rhythm with some nonspecific ST and T wave abnormalities. Troponins are negative 3. Influenza screen is negative. White count 5.1. Hemoglobin 8.8. Platelet count 59,000. Creatinine 1.09. Lactic acid 3.3. Currently 1.2. The patient was seen today in consultation on the selective care unit. He is awake and alert. He is in a significant amount of discomfort. His been treated with Dilaudid alternating with morphine. He is taking Percocets 4-5 tablets a day at home for neuropathy. Currently maintaining O2 saturations in the mid 90s on 2 L/m per nasal cannula. He's been afebrile. Hemodynamically stable. The patient is seen again today 08/23/2018 in follow-up on the selective care unit. He is much more relaxed. His pain is much better controlled. He was initiated on a [employer] pump of hydromorphone. He is maintaining good O2 saturations in the 90s on 2 L/m per nasal cannula. He's been afebrile. Hemodynamically stable. He is still dyspneic with minimal exertion. The plan is for left-sided thoracentesis today. Objective - Vital Signs Vital signs: Vital Signs Temp 98.2 F 08/23/18 12:00 Pulse 92 08/23/18 12:00 Resp 16 08/23/18 12:00 BP 91/51 08/23/18 12:00 Pulse Ox 91 L 08/23/18 12:00 Intake & Output 08/22/18 08/23/18 08/23/18 18:59 06:59 18:59 Intake Total 329 240 Output Total 400 350 500 Balance -400 -21 -260 Weight 79.379 kg 78 kg Intake: IV 40 0.9 40 Intake, IV Titration 49 Amount HYDROmorphone (PF) 10 mg 49 In Sodium Chloride 0.9% 49 ml @ As Directed IV PER PROTOCOL PRN Rx#: [id number] Oral 240 240 Output: Urine 400 350 500 Other: Voiding Method Urinal Urinal # Voids 1 - Exam GENERAL EXAM: Alert, active, comfortable in no apparent distress. On a [employer] pump. On 2 L. HEAD: Normocephalic. EYES: Normal reaction of pupils, equal size. NOSE: Clear with pink turbinates. THROAT: No erythema or exudates. NECK: No masses, no JVD. CHEST: No chest wall deformity. LUNGS: Equal air entry with scattered rhonchi, crackles, diminished more so on the left lung base. CVS: S1 and S2 normal with no audible murmur, regular rhythm. ABDOMEN: No hepatosplenomegaly, normal bowel sounds, no guarding or rigidity. SPINE: No scoliosis or deformity SKIN: No rashes CENTRAL NERVOUS SYSTEM: No focal deficits, tone is normal in all 4 extremities. EXTREMITIES: There is no peripheral edema. No clubbing, no cyanosis. Peripheral pulses are intact. - Labs CBC & Chem 7: 08/22/18 01:11 08/22/18 01:11 Labs: Abnormal Lab Results - Last 24 Hours (Table) 08/22/18 08/23/18 Range/Units 01:11 06:58 Total Protein (PEP) 4.7 L (6.2-8.2) g/dL HDL Cholesterol 16 L (40-60) mg/dL Microbiology - Last 24 Hours (Table) 08/22/18 01:11 Blood Culture - Preliminary Blood No Growth after 24 hours Assessment and Plan Assessment: Impression: #1 Intractable left-sided chest discomfort suspect secondary to enlarging left upper lobe mass and new left pleural effusion with suspected bone metastasis. Patient has undergone 2 bronchoscopies with biopsies without diagnosis. PET scan did show SUV of 5.6 on the left upper lobe mass. New multiple bony lesions suspect secondary to possible lung cancer with bone metastases versus progressive multiple myeloma. #2 Left upper lobe mass of unclear etiology. Bronchoscopies with biopsies 2 revealed no malignancy. Suspicion remains. #3 New left pleural effusion secondary to above. Thoracentesis was performed on 08/23/2018. Fluid analysis and pathology is pending. #4 Multiple myeloma diagnosed back in 2010 status post bone marrow transplant and receives annual bone marrow biopsies. 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 #6 Coronary artery disease with multiple stent placements in 2005 MR recently in 2013. #7 Hypertension. #8 Hyperlipidemia. #9 Chronic and ongoing tobacco dependence. Plan: The patient was seen and evaluated by Dr. Zacarias. His pain is much better controlled today. Hydromorphone [employer] pump. He did undergo a left-sided thoracentesis with 1350 ML's of turbulent yellow fluid removed. Postoperative chest x-ray revealed no complications. Fluid was sent for analysis and pathology. We'll continue to follow and make further recommendations based on his clinical status. I, the cosigning physician, performed a history & physical examination of the patient. Lungs sounds with scattered rhonchi more so on the left lung. Maintaining good O2 saturations in the 90s on 2 liters per minute per nasal cannula. I discussed the assessment and plan of care with my nurse practitioner , Sona Edmond. I attest to the above consultation as dictated by her.
--- NOTE | 2018-08-23 18:40 | MR ---
EXAMINATION TYPE: MR thoracic spine wo/w con DATE OF EXAM: 08/23/2018 COMPARISON: None HISTORY: Severe back pain, abnormal CT, Known Lung CA/Myeloma CONTRAST: Standard multiplanar, multisequence MRI departmental protocol utilizing 7.5 mL intravenous Gadavist g adolinium contrast. FINDINGS: The vertebra have fairly normal alignment. There is a rounded 1.5 cm focus of increased sig nal on the T1 and T2 images in the T6 vertebral body that could be some fatty marrow. There is T8 ant erior wedging and 25% compression deformity. There is no significant edema in the vertebral body. The re is no focal bone destruction. There is no thoracic paraspinal mass there is left side moderate ple ural effusion. The posterior elements are intact. Thoracic spinal cord has normal signal pattern. The re is no evidence of a mass of the spinal cord. There is no thoracic spinal stenosis. I see no pathol ogic enhancement. There is 10% mild anterior wedging noted also at T7. IMPRESSION: There is mild compression deformity of T7 and T8 vertebral bodies without pathologic enhancement or f ocal destruction to suggest metastatic disease. This is more likely related to osteoporosis or osteom alacia. Focal high signal area in the T6 vertebral body without enhancement could be area of fatty marrow. Le ft pleural effusion.
--- NOTE | 2018-08-23 20:12 | P.PN ---
Subjective Progress Note Date: 08/23/18 Principal diagnosis: back pain, history of multiple myeloma, new lung mass In follow-up today patient is feeling much better, he has good pain control. He is being seen by [facility], pending plans. Patient has been seen by pain management with [employer] and other medications ordered which have improved patient's pain significantly. Patient does have mild bicytopenia but, currently asymptomatic, no bleeding, fevers, nausea or diarrhea. Objective - Vital Signs Vital signs: Vital Signs Temp 99.1 F 08/23/18 16:00 Pulse 92 08/23/18 16:00 Resp 16 08/23/18 16:00 BP 99/51 08/23/18 16:00 Pulse Ox 96 08/23/18 16:00 Intake & Output 08/23/18 08/23/18 08/24/18 06:59 18:59 06:59 Intake Total 329 240 Output Total 350 500 Balance -21 -260 Weight 78 kg Intake: IV 40 0.9 40 Intake, IV Titration 49 Amount HYDROmorphone (PF) 10 mg 49 In Sodium Chloride 0.9% 49 ml @ As Directed IV PER PROTOCOL PRN Rx#: [id number] Oral 240 240 Output: Urine 350 500 Other: Voiding Method Urinal Urinal # Voids 1 - Constitutional General appearance: Present: average body habitus, cooperative, no acute distress - EENT Eyes: Present: EOMI ENT: Present: hearing grossly normal - Respiratory Respiratory: bilateral: CTA - Cardiovascular Rhythm: regular Heart sounds: normal: S1, S2 Abnormal Heart Sounds: Absent: systolic murmur, diastolic murmur, rub, S3 Gallop , S4 Gallop, click, other - Peripheral edema leg Peripheral Edema: bilateral: None - Gastrointestinal General gastrointestinal: Present: normal bowel sounds, soft - Neurologic Neurologic: Present: CNII-XII intact - Musculoskeletal Musculoskeletal: Present: strength equal bilaterally - Psychiatric Psychiatric: Present: A&O x's 3, appropriate affect, intact judgment & insight - Labs CBC & Chem 7: 08/22/18 01:11 08/22/18 01:11 Labs: Abnormal Lab Results - Last 24 Hours (Table) 08/22/18 08/23/18 Range/Units 01:11 06:58 Total Protein (PEP) 4.7 L (6.2-8.2) g/dL HDL Cholesterol 16 L (40-60) mg/dL Microbiology - Last 24 Hours (Table) 08/23/18 13:00 Body Fluid Culture - Preliminary Pleural Fluid 08/22/18 01:11 Blood Culture - Preliminary Blood No Growth after 24 hours Assessment and Plan (1) Acute thoracic back pain Narrative/Plan: Severe acute pain. Source of which is concerning. Pain management services have seen patient with very satisfactory results. Patient is feeling significantly better. Dr. Lewis has seen pt, further imaging ordered, plan pending results. We will continue to follow with case closely until workup is completed Current Visit: Yes Status: Acute Priority: High Code(s): M54.6 - PAIN IN THORACIC SPINE SNOMED Code(s): 849054567 (2) Bicytopenia Narrative/Plan: Patient does have a history of myeloma as well as treatment for myeloma. Patient's hemoglobin and platelets are baseline for him. If patient is requiring procedures we are more than happy to order platelets for those procedures to be done. Otherwise, no acute intervention at this time Current Visit: Yes Status: Chronic Priority: Medium Code(s): D75.89 - OTHER SPECIFIED DISEASES OF BLOOD AND BLOOD-FORMING ORGANS SNOMED Code(s): 329776356 (3) Mass of upper lobe of left lung Narrative/Plan: Patient is status post 2 biopsies with nondiagnostic pathology. Dr. Reynolds has discussed the case with pulmonary. There are plans for thoracentesis and cytology. Current Visit: Yes Status: Acute Priority: High Code(s): R91.8 - OTHER NONSPECIFIC ABNORMAL FINDING OF LUNG FIELD SNOMED Code(s): 940045269 (4) Myeloma Narrative/Plan: Patient's treatment for myeloma has been on hold since early June. Myeloma follow-up labs are pending. Current Visit: Yes Status: Acute Code(s): C90.00 - MULTIPLE MYELOMA NOT HAVING ACHIEVED REMISSION SNOMED Code(s): 884196486
[2018-08-23] MEDS: FAMOTIDINE 20 MG TAB PO SCH (20:30)
[2018-08-23] MEDS: LORATADINE 10 MG TAB PO SCH (20:31)
[2018-08-24] MEDS ORDERED: DILTIAZEM DRIP BOLUS FROM BAG 1 MG SOLN IV ONE (05:36)
[2018-08-24] MEDS: DILTIAZEM 125 MG in SODIUM CHLORIDE 0.9% 100 ML IV SCH ×2 (05:49→16:23)
[2018-08-24] MEDS: CLOTRIMAZOLE TROCHE 10 MG TROCHE PO SCH ×5 (05:51→23:27)
[2018-08-24] MEDS: KETOROLAC 30 MG/ML 1 ML VIAL IVP SCH ×4 (05:54→23:26)
--- NOTE | 2018-08-24 09:02 | P.PN ---
Progress Note - Text Progress Note Date: 08/24/18 Patient is a very pleasant 63-year-old male who is seen and examined at bedside for follow-up evaluation in regards to his thoracic back pain. He was having some improvement of his symptoms when seen and examined yesterday by Dr. Sam Lewis. Since being seen exam yesterday, an MRI of the thoracic spine has been performed. Patient was also known to have a pleural effusion on the left. He was able to have 1650 mL of fluid drained at the bedside yesterday by Dr. Zacarias. Since that time he feels overall his thoracic back pain symptoms with pain radiating around the left ribs towards the nipple and anterior chest has significantly improved. He is able to move better in bed without difficulty. His only significant pain at the thoracic spine is with coughing. He is not currently experiencing any pain at the lower thoracic spine. He denies any lower extremity weakness and radiculopathy bilaterally. He denies any low back pain. He feels his pain is been better controlled. He continues to take IV and oral medications as prescribed as needed for control of his symptoms. He does continue to experience neuropathy in the bilateral lower extremities, which is chronic. Patient does have a significant medical history. Patient states in 2009 he was diagnosed with nonsecreting myeloma. He underwent bone marrow transplant in 2010. He states his cancer was in remission and he continued to follow with Dr. Spangler in oncology. He underwent bone biopsies approximately twice per year. His remission remained intact until over the past 8-9 months and the cancer has returned. He had continued to work through with treatment with Dr. Spangler. Approximately 5 weeks ago he presented to the urgent care for treatment of a cold. Chest x-ray was taken at that time which showed evidence of a lung mass. Since that time he is followed up with Dr. Spangler. He states he underwent 2 lung biopsies with the first is result was negative for findings and the second results is currently pending. Again today he states he is waiting for biopsy results. Physical exam: Patient is awake, alert, and oriented 3 Vital signs stable Good chest excursion with deep inspiration and expiration Examination of thoracic and lumbar spine reveals skin is intact with no abrasions, lacerations, or bruises; no erythema, purulence or signs of infection Significant pain with rolling over in bed at the thoracic spine Significant pain with any movement of the thoracic spine Significant pain with palpation at the mid upper thoracic spine along the midline and towards the left Dorsiflexion, plantarflexion, and extensor hallucis longus positive sustained bilaterally Lower extremity strength 5/5 bilaterally No lower extremity hyperreflexia bilaterally Straight leg test negative bilateral lower extremities Patient is able to lift legs independently without significant difficulty No signs or symptoms of DVT; no calf pain No pain with internal and external rotation of the hips bilaterally Vascularly intact Patient is able to feel manipulation of bilateral feet and has decreased sensation Pertinent studies: MRI of the thoracic spine performed on 08/23/2017: Mild compression fracture deformity at T7 with approximately 10% height loss and mild compression fracture deformity at T8 with approximately 25% height loss without evidence of pathological enhancement or focal destruction to suggest metastatic disease without evidence of increased signal or edema to indicate healing fracture; overall alignment appears be adequately maintained; no evidence of thoracic spinal mass; left moderate pleural effusion; overall alignment appears to be fairly well maintained; thoracic spinal cord within normal signal pattern; no evidence of mass of the spinal cord; no thoracic spinal canal stenosis; increased signal in the T6 vertebral body that could be related to fatty marrow CT chest taken on 08/22/2018: T4 sclerotic focus; T8 compression fracture deformity appearing more prominent; persistent left upper lobe mass; small moderate left pleural effusion with left basilar atelectasis/consolidation; small pericardial fluid with fat stranding at the left cardiophrenic angle Assessment: Severe intractable thoracic back pain Thoracic radiculopathy T4 sclerotic focus T7 compression fracture deformity of indeterminate age but does not appear acute T8 compression fracture deformity of indeterminate age but does not appear acute Left upper lobe lung mass Left pleural effusion; status post drainage of effusion Bilateral lower extremity neuropathy History of nonsecreting myeloma History of bone marrow transplant Plan: 1. Patient has been discussed in detail with Dr. Sam Lewis. Patient has been experiencing significant and debilitating thoracic back pain with radiculopathy over the past 4 days without injury. Patient has undergone CT imaging and thoracic MRI imaging during this admission. Since his admission his symptoms have significantly improved after undergoing drainage of his left pleural effusion in which 1650 mL was drained. He is only currently experiencing some left-sided thoracic pain with coughing. He is able to increase his movements and mobility in bed without significant difficulty. Reviewing of imaging to show evidence of fracture at T7 and T8 but these fractures do not appear to be acute in nature. Patient does have some mild left-sided thoracic back pain which is higher in his thoracic spine than the location of these fractures. Given the significant improvement of his symptoms over the past 2 days, especially after drainage of his left pleural effusion, we are not currently planning for further treatment or evaluation during his hospital admission in regards to his thoracic spine. Patient may increase mobility and ambulation to tolerance. He will be clear for discharge from orthopedic spine standpoint. We will plan is to have him follow-up in the outpatient setting for further evaluation. Following discharge, patient may follow-up with Andrez Richardson or Dr. Sam Lewis at [facility] in approximately 2-3 weeks for further evaluation. 2. Patient will continue to follow with Dr. Zacarias and pulmonology for further treatment and evaluation; currently waiting for lung biopsy results 3. Continue pain control with medications as prescribed by other providers 4. Patient will continue to be seen and examined by Dr. Blankenship in oncology, medicine and other medical providers
--- NOTE | 2018-08-24 09:17 | PCN ---
PROCEDURE NOTE THORACENTESIS ON THE LEFT SIDE: PREOPERATIVE DIAGNOSIS: Pleural effusion. POSTOPERATIVE DIAGNOSIS: Pleural effusion. TOTAL AMOUNT OF FLUID: 1.35 L of turbid dark yellowish pleural effusion. No complications or bleeding. Chest x-ray shows no evidence of pneumothorax, post thoracentesis. TATIANA / ALESHIA: [id number] /
--- NOTE | 2018-08-24 10:44 | PN ---
PROGRESS NOTE DATE OF SERVICE: 08/23/2018 PRESENTING COMPLAINT: Back pain. INTERVAL HISTORY: This patient was seen by me yesterday. Presented with acute back pain involving the vertebra. Thoracentesis was carried out today, 1.35 cm of greenish-yellow fluid was obtained. Patient has got a pain pump, feeling a bit better. Also, MRI was pending when I saw the patient. Patient previously has had bronchoscopy with tissue being nondiagnosis. Multiple myeloma seems to be quiescent. Resting in bed. REVIEW OF SYSTEMS: Done for constitutional, cardiovascular, GI, pulmonary; relevant findings as above. CURRENT MEDICATIONS: Reviewed that include Dilaudid pain pump. PHYSICAL EXAMINATION: Temperature 98.7, pulse 85, respiratory 18, blood pressure 114/55, pulse ox 95% on 2 L. GENERAL APPEARANCE: Lying in bed, more restful. EYES: Pupils equal, conjunctiva normal. NECK: JVD not raised. Mass not palpable. RESPIRATORY: Effort increased. LUNGS: Diminished breath sounds. CARDIOVASCULAR: First and second sounds are normal. No edema. ABDOMEN: Soft, nontender. Liver and spleen not palpable. PSYCHIATRY: Alert and oriented x3. Mood and affect comfortable. INVESTIGATIONS: Troponins negative. Pleural fluid studies are pending. Thoracic spine MRI, compression deformity of T7 and T8. ASSESSMENT: 1. Acute compression fracture of T7, T8 vertebra with some radiculopathy with MRI finding suggesting less likely malignancy, could be from underlying multiple myeloma/osteopenia. 2. Coronary artery disease. 3. Chronic obstructive pulmonary disease in a current smoker. 4. Gastroesophageal reflux disease. 5. Hyperlipidemia. 6. Essential hypertension. 7. Left lung mass. Workup in place with initial biopsy being negative for malignancy. 8. Multiple myeloma with chemo and stem cell transplant in 2009. 9. Peripheral neuropathy from chemotherapy. 10.Bicytopenia. 11.Metabolic and lactic acidosis. 12.Pain control. 13.Left pleural effusion associated left lung mass, cause at this point, undetermined. PLAN: Patient is doing better with a pain control, myeloma workup is in place to see if this is more active. Patient is status post thoracentesis (cytology can often be low). Care was discussed with the patient. MMODL / IJN: [id number] /
[2018-08-24] MEDS: LIDOCAINE 5% PATCH TOPICAL SCH (11:07)
[2018-08-24] MEDS: SODIUM BICARBONATE TAB 650 MG TAB PO SCH ×3 (11:08→20:39)
[2018-08-24] MEDS: LISINOPRIL 2.5 MG TAB PO SCH (11:08)
[2018-08-24] MEDS: ASPIRIN 325 MG TAB PO SCH (11:08)
[2018-08-24] MEDS: GABAPENTIN 300 MG CAP PO SCH ×3 (11:08→20:39)
[2018-08-24] MEDS: ATORVASTATIN 40 MG TAB PO SCH (11:08)
[2018-08-24] MEDS: ACYCLOVIR 200 MG CAP PO SCH ×2 (11:08→20:38)
[2018-08-24 12:38] LABS: Albumin 1.95 g/dL (3.80-4.90)
[2018-08-24] MEDS ORDERED: HEPARIN SODIUM,PORCINE 5,000 UNIT/ML 1 ML VIAL IV ONE (14:23)
[2018-08-24] MEDS ORDERED: HEPARIN SODIUM,PORCINE 5,000 UNIT/ML 1 ML VIAL IV PRN (14:23)
[2018-08-24] MEDS ORDERED: HEPARIN SOD,PORK IN 0.45% NACL 25,000 UNIT in 0.45% NACL 1 250ML.BAG IV SCH (14:30)
--- NOTE | 2018-08-24 14:36 | P.PN ---
Subjective Progress Note Date: 08/24/18 Principal diagnosis: Large left-sided pleural effusion, left lung mass This is a very pleasant 63-year-old gentleman who follows with Dr. Coelho as his primary care physician. He has a history of coronary artery disease with previous stent placements in 2004, 2013, hyperlipidemia, hypertension, multiple myeloma with previous bone marrow transplant in 2010, annual bone marrow biopsies and follows with Dr. Reynolds for the same. He also has a more recent history of a large left upper lobe lung mass. PET scan from 07/28/2018 revealed hypermetabolic left hilar reticulated lesion measuring 4.2 x 2.8 with a max SUV of 5.6. Primary lung carcinoma within the differential. There is also new hypermetabolic focus in the left lateral mid rib with a max SUV of 2.94. There were new hypermetabolic foci in the thoracic spine with a max SUV of 3.7. There is a more prominent hypermetabolic focus at T8 with a max SUV of 11.83. There is also new hypermetabolic focus in the right upper sacrum with a max SUV of 7.12. No definitive corresponding lytic lesion was present. He had undergone bronchoscopy with transbronchial biopsies on 08/08/2018 which revealed no evidence of malignancy, he had a subsequent navigational bronchoscopy on 08/16/2018 with more specific transbronchial biopsies and transbronchial needle aspirates, washes and brushings all of which were negative for malignancy. His PET scan does show uptake with an SUV value of 5.6 in that area. The patient presented here to the emergency room early this morning with complaints of significant left-sided posterior back pain which was radiating through to his left chest anteriorly. He was quite uncomfortable. CT scan of the chest revealed a small to moderate left pleural effusion with left basilar atelectasis/consolidation. There is persistent left upper lobe mass. Small pericardial effusion. EKG revealed normal sinus rhythm with some nonspecific ST and T wave abnormalities. Troponins are negative 3. Influenza screen is negative. White count 5.1. Hemoglobin 8.8. Platelet count 59,000. Creatinine 1.09. Lactic acid 3.3. Currently 1.2. The patient was seen today in consultation on the selective care unit. He is awake and alert. He is in a significant amount of discomfort. His been treated with Dilaudid alternating with morphine. He is taking Percocets 4-5 tablets a day at home for neuropathy. Currently maintaining O2 saturations in the mid 90s on 2 L/m per nasal cannula. He's been afebrile. Hemodynamically stable. The patient is seen again today 08/23/2018 in follow-up on the selective care unit. He is much more relaxed. His pain is much better controlled. He was initiated on a [employer] pump of hydromorphone. He is maintaining good O2 saturations in the 90s on 2 L/m per nasal cannula. He's been afebrile. Hemodynamically stable. He is still dyspneic with minimal exertion. The plan is for left-sided thoracentesis today. The patient is seen again today 08/24/2018 in follow-up on the selective care unit. He is awake and alert in no acute distress. Continuing to do better each day. Pain is well controlled today. He is maintaining good O2 saturations in the 90s on 2 L/m per nasal cannula. She's afebrile. Hemodynamically stable. Blood culture reveals no growth. Sputum culture is pending. Pleural fluid analysis pending. White count 11.0. Hemoglobin 12.8. Creatinine 0.75. Objective - Vital Signs Vital signs: Vital Signs Temp 98.2 F 08/24/18 11:23 Pulse 61 08/24/18 11:58 Resp 17 08/24/18 11:58 BP 131/68 08/24/18 11:23 Pulse Ox 95 08/24/18 11:23 Intake & Output 08/23/18 08/24/18 08/24/18 18:59 06:59 18:59 Intake Total 240 240 Output Total 500 150 800 Balance -260 -150 -560 Weight 77.5 kg 77.5 kg Intake: Oral 240 240 Output: Urine 500 150 800 Other: Voiding Method Urinal Urinal Urinal # Voids 1 - Exam GENERAL EXAM: Alert, active, comfortable in no apparent distress. On a [employer] pump. On 2 L. HEAD: Normocephalic. EYES: Normal reaction of pupils, equal size. NOSE: Clear with pink turbinates. THROAT: No erythema or exudates. NECK: No masses, no JVD. CHEST: No chest wall deformity. LUNGS: Equal air entry with scattered rhonchi, crackles, diminished more so on the left lung base. CVS: S1 and S2 normal with no audible murmur, regular rhythm. ABDOMEN: No hepatosplenomegaly, normal bowel sounds, no guarding or rigidity. SPINE: No scoliosis or deformity SKIN: No rashes CENTRAL NERVOUS SYSTEM: No focal deficits, tone is normal in all 4 extremities. EXTREMITIES: There is no peripheral edema. No clubbing, no cyanosis. Peripheral pulses are intact. - Labs CBC & Chem 7: 08/22/18 01:11 08/22/18 01:11 Labs: Abnormal Lab Results - Last 24 Hours (Table) 08/23/18 Range/Units 06:58 Albumin (PEP) 1.95 L (3.80-4.90) g/dL Msqls-[id number] 0.68 H (0.10-0.40) g/dL Beta Globulins 0.59 L (0.60-1.30) g/dL Gamma Globulins 0.50 L (0.70-1.50) g/dL Microbiology - Last 24 Hours (Table) 08/23/18 13:00 Gram Stain - Preliminary Pleural Fluid Body Fluid Culture - Preliminary 08/22/18 01:11 Blood Culture - Preliminary Blood No Growth after 48 hours Assessment and Plan Assessment: Impression: #1 Intractable left-sided chest discomfort suspect secondary to enlarging left upper lobe mass and new left pleural effusion with suspected bone metastasis. Patient has undergone 2 bronchoscopies with biopsies without diagnosis. PET scan did show SUV of 5.6 on the left upper lobe mass. MRI reveals evidence of suspected osteoporosis or osteomalacia but no focal destruction to suggest metastatic disease involving the vertebral spine. #2 Left upper lobe mass of unclear etiology. Bronchoscopies with biopsies 2 revealed no malignancy. Suspicion remains. #3 New left pleural effusion secondary to above. Thoracentesis was performed on 08/23/2018. Fluid analysis and pathology is pending. #4 Multiple myeloma diagnosed back in 2010 status post bone marrow transplant and receives annual bone marrow biopsies. 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 #6 Coronary artery disease with multiple stent placements in 2005 MR recently in 2013. #7 Hypertension. #8 Hyperlipidemia. #9 Chronic and ongoing tobacco dependence. Plan: The patient was seen and evaluated by Dr. Zacarias. The patient is much more comfortable today. No pulmonary complaints. Continue the current treatment plan. We'll continue to follow and make further recommendations based on his clinical status. I, the cosigning physician, performed a history & physical examination of the patient. Lungs sounds with scattered rhonchi more so on the left lung. Maintaining good O2 saturations in the 90s on 2 liters per minute per nasal cannula. I discussed the assessment and plan of care with my nurse practitioner , Sona Edmond. I attest to the above consultation as dictated by her.
[2018-08-24 15:18] LABS: Anisocytosis Slight; Basophils % (A) 0 %; Eosinophils # (A) 0.1 k/uL (0-0.7); Eosinophils % (A) 1 %; HCT 31.1 % (39.0-53.0); HGB 9.4 gm/dL (13.0-17.5); Hypochromasia Marked; Lymphocytes % (A) 11 %; MCH 35.2 pg (25.0-35.0); MCHC 30.4 g/dL (31.0-37.0); Macrocytosis Marked; Mean Platelet Volume 9.2; Monocytes # (A) 0.2 k/uL (0-1.0); Monocytes % (A) 3 %; Neutrophils # (A) 7.9 k/uL (1.3-7.7); Neutrophils % (A) 83 %; RBC 2.68 m/uL (4.30-5.90); RDW 18.9 % (11.5-15.5); WBC 9.6 k/uL (3.8-10.6)
[2018-08-24 15:21] LABS: Anion Gap 13 mmol/L; Blood Urea Nitrogen 36 mg/dL (9-20); Calcium 8.1 mg/dL (8.4-10.2); Carbon Dioxide 18 mmol/L (22-30); Chloride 106 mmol/L (98-107); Glucose 143 mg/dL (74-99); MCV 115.9 fL (80.0-100.0); Platelet Count 56 k/uL (150-450); Potassium 3.7 mmol/L (3.5-5.1); Sodium 137 mmol/L (137-145)
[2018-08-24 15:31] LABS: Partial Thromboplastin Time 23.9 sec (22.0-30.0); Prothrombin Time 10.7 sec (9.0-12.0)
[2018-08-24] MEDS: oxyCODONE-APAP 10-325MG 1 EACH TAB PO PRN (16:24)
--- NOTE | 2018-08-24 17:56 | PN ---
PROGRESS NOTE DATE OF SERVICE: 08/24/2018 PRESENTING COMPLAINT: Tired. INTERVAL HISTORY: Patient presented with acute back pain, found to have acute compression fracture of T7, T8. Also the patient has a lung mass. Diagnosis is unclear. Also left thoracentesis was carried out. Also workup for active multiple myeloma is in place. Patient is resting in bed. Did tolerate some diet. Pain is controlled. REVIEW OF SYSTEMS: Done for constitutional, cardiovascular, GI, pulmonary; relevant findings as above. CURRENT MEDICATIONS: Reviewed. They include Dilaudid pain pump, IV Cardizem. PHYSICAL EXAMINATION: Temperature 98.2, pulse 61, respiration 17, blood pressure 131/68, pulse ox 95% on 2 L. GENERAL APPEARANCE: Sitting up. Looks more restful. EYES: Pupils equal. Conjunctivae normal. NECK: JVD not raised. Mass not palpable. RESPIRATORY: Effort normal. LUNGS: Decreased breath sounds. CARDIOVASCULAR: Heart sounds irregular. No edema. ABDOMEN: Soft, non-tender. Liver and spleen not palpable. PSYCHIATRY: Alert and oriented x3. Mood and affect more comfortable. INVESTIGATIONS: White count 9.6, hemoglobin 9.4, platelets 56. Potassium 3.7, BUN 36, creatinine 1.01. ASSESSMENT: 1. Acute compression fracture of T7, T8 with radiculopathy, cause unclear for the same. 2. Coronary artery disease. 3. Chronic obstructive pulmonary disease in a current smoker. 4. Gastroesophageal reflux disease. 5. Hyperlipidemia. 6. Essential hypertension. 7. Left lung mass. Workup in place. Initial biopsy negative for malignancy. 8. Multiple myeloma with chemo and stem cell transplant in 2009. 9. Peripheral neuropathy from chemotherapy. 10.Bicytopenia. 11.Metabolic and lactic acidosis. 12.Pain control. 13.Left pleural effusion associated with left lung mass. Cause at this point is unclear. Continue current medication and treatment plan. Will await results from the pleural fluid and further plan from there. MMODL / IJN: [id number] /
--- NOTE | 2018-08-24 17:56 | PN ---
PROGRESS NOTE ADDENDUM TO PROGRESS NOTE: DATE OF SERVICE: 08/24/2018 ADDENDUM: Patient last night went into atrial fibrillation with rapid ventricular rate, was put on a Cardizem drip. Today patient's heart rate is controlled. He is being followed by Dr. Darrell Metzger from Cardiology. TATIANA / ALESHIA: [id number] /
[2018-08-24] MEDS: HYDROMORPHONE (PF) 10 MG in SODIUM CHLORIDE 0.9% 49 ML IV PRN (18:30)
[2018-08-24] MEDS: FAMOTIDINE 20 MG TAB PO SCH (20:38)
[2018-08-24] MEDS: LORATADINE 10 MG TAB PO SCH (20:38)
[2018-08-25] MEDS: oxyCODONE-APAP 10-325MG 1 EACH TAB PO PRN ×4 (04:30→20:36)
[2018-08-25] MEDS: KETOROLAC 30 MG/ML 1 ML VIAL IVP SCH ×3 (05:48→19:12)
[2018-08-25] MEDS: CLOTRIMAZOLE TROCHE 10 MG TROCHE PO SCH ×5 (05:48→23:40)
[2018-08-25 06:33] LABS: Anisocytosis Slight; Basophils % (A) 0 %; Eosinophils # (A) 0.1 k/uL (0-0.7); Eosinophils % (A) 1 %; HCT 23.2 % (39.0-53.0); HGB 7.1 gm/dL (13.0-17.5); Hypochromasia Marked; Lymphocytes # (A) 0.7 k/uL (1.0-4.8); Lymphocytes % (A) 6 %; MCH 33.8 pg (25.0-35.0); MCHC 30.4 g/dL (31.0-37.0); MCV 111.2 fL (80.0-100.0); Macrocytosis Marked; Mean Platelet Volume 10.1; Monocytes # (A) 0.4 k/uL (0-1.0); Monocytes % (A) 4 %; Neutrophils # (A) 8.7 k/uL (1.3-7.7); Neutrophils % (A) 86 %; Platelet Count 48 k/uL (150-450); RBC 2.09 m/uL (4.30-5.90); RDW 18.7 % (11.5-15.5); WBC 10.1 k/uL (3.8-10.6)
[2018-08-25 06:37] LABS: Calcium 7.6 mg/dL (8.4-10.2); Potassium 4.4 mmol/L (3.5-5.1)
[2018-08-25] MEDS: DILTIAZEM 125 MG in SODIUM CHLORIDE 0.9% 100 ML IV SCH (06:47)
[2018-08-25] MEDS: ACYCLOVIR 200 MG CAP PO SCH ×2 (08:37→20:37)
[2018-08-25] MEDS: LIDOCAINE 5% PATCH TOPICAL SCH ×2 (08:37→15:29)
[2018-08-25] MEDS: ATORVASTATIN 40 MG TAB PO SCH (08:38)
[2018-08-25] MEDS: GABAPENTIN 300 MG CAP PO SCH ×3 (08:38→20:37)
[2018-08-25] MEDS: SODIUM BICARBONATE TAB 650 MG TAB PO SCH ×3 (08:40→20:37)
[2018-08-25] MEDS ORDERED: HYDROMORPHONE (PF) 10 MG in SODIUM CHLORIDE 0.9% 49 ML IV PRN (09:00)
--- NOTE | 2018-08-25 14:10 | P.PN ---
Subjective Progress Note Date: 08/25/18 This is a very pleasant 63-year-old gentleman who follows with Dr. Coelho as his primary care physician. He has a history of coronary artery disease with previous stent placements in 2004, 2013, hyperlipidemia, hypertension, multiple myeloma with previous bone marrow transplant in 2010, annual bone marrow biopsies and follows with Dr. Reynolds for the same. He also has a more recent history of a large left upper lobe lung mass. PET scan from 07/28/2018 revealed hypermetabolic left hilar reticulated lesion measuring 4.2 x 2.8 with a max SUV of 5.6. Primary lung carcinoma within the differential. There is also new hypermetabolic focus in the left lateral mid rib with a max SUV of 2.94. There were new hypermetabolic foci in the thoracic spine with a max SUV of 3.7. There is a more prominent hypermetabolic focus at T8 with a max SUV of 11.83. There is also new hypermetabolic focus in the right upper sacrum with a max SUV of 7.12. No definitive corresponding lytic lesion was present. He had undergone bronchoscopy with transbronchial biopsies on 08/08/2018 which revealed no evidence of malignancy, he had a subsequent navigational bronchoscopy on 08/16/2018 with more specific transbronchial biopsies and transbronchial needle aspirates, washes and brushings all of which were negative for malignancy. His PET scan does show uptake with an SUV value of 5.6 in that area. The patient presented here to the emergency room early this morning with complaints of significant left-sided posterior back pain which was radiating through to his left chest anteriorly. He was quite uncomfortable. CT scan of the chest revealed a small to moderate left pleural effusion with left basilar atelectasis/consolidation. There is persistent left upper lobe mass. Small pericardial effusion. EKG revealed normal sinus rhythm with some nonspecific ST and T wave abnormalities. Troponins are negative 3. Influenza screen is negative. White count 5.1. Hemoglobin 8.8. Platelet count 59,000. Creatinine 1.09. Lactic acid 3.3. Currently 1.2. The patient was seen today in consultation on the selective care unit. He is awake and alert. He is in a significant amount of discomfort. His been treated with Dilaudid alternating with morphine. He is taking Percocets 4-5 tablets a day at home for neuropathy. Currently maintaining O2 saturations in the mid 90s on 2 L/m per nasal cannula. He's been afebrile. Hemodynamically stable. The patient is seen again today 08/23/2018 in follow-up on the selective care unit. He is much more relaxed. His pain is much better controlled. He was initiated on a MOUNTING INSPECTOR pump of hydromorphone. He is maintaining good O2 saturations in the 90s on 2 L/m per nasal cannula. He's been afebrile. Hemodynamically stable. He is still dyspneic with minimal exertion. The plan is for left-sided thoracentesis today. The patient is seen again today 08/24/2018 in follow-up on the selective care unit. He is awake and alert in no acute distress. Continuing to do better each day. Pain is well controlled today. He is maintaining good O2 saturations in the 90s on 2 L/m per nasal cannula. She's afebrile. Hemodynamically stable. Blood culture reveals no growth. Sputum culture is pending. Pleural fluid analysis pending. White count 11.0. Hemoglobin 12.8. Creatinine 0.75. On 08/25/2018, the patient's comfortable. Back pain is under much better control. He is using mainly the Percocet and his not used his MOUNTING INSPECTOR quite a bit over the past 24 hours. His breathing is also stable. No cough sputum production chest tightness or wheezing. The pleural fluid cytology still pending for now. The plan is to wait until the fluid cytology is back. If negative, the patient will need a fine-needle aspirate of the left upper lobe mass which seems to be suspicious for underlying bronchogenic cancer. Nevertheless, despite our suspicion, we haven't been able to confirm malignancy in this patient. The patient's hemoglobin is at 7.0 which is lower compared to yesterday. We'll monitor the counts. No signs of any bleeding at this point in time. The MRI of the spine showed compression deformity of the T7 and T8 vertebral bodies without pathologic enhancement or focal destruction to suggest metastases. This is most likely related to osteoporosis or osteomalacia. There is another focal high signal area and the T6 vertebral spine without enhancement and this could be an area of fatty marrow. The fluid chemistry is still pending to differentiate between transudate and exudate. Objective - Vital Signs Vital signs: Vital Signs Temp 97.8 F 08/25/18 10:21 Pulse 76 08/25/18 12:00 Resp 19 08/25/18 12:00 BP 125/69 08/25/18 12:00 Pulse Ox 92 L 08/25/18 12:00 Intake & Output 08/24/18 08/25/18 08/25/18 18:59 06:59 18:59 Intake Total 1105.667 306.167 746 Output Total 800 150 400 Balance 305.667 156.167 346 Weight 77.5 kg 78.7 kg Intake: IV 100 0.9 100 Intake, IV Titration 105.667 66.167 6 Amount Diltiazem 125 mg In 105.667 66.167 Sodium Chloride 0.9% 100 ml @ 10 MG/HR 10 mls/hr IV .[id number] [facility] Rx#: [id number] Hydromorphone (Pf) 10 mg 6 In Sodium Chloride 0.9% 49 ml @ As Directed IV PER PROTOCOL PRN Rx#: [id number] Oral 1000 240 640 Output: Urine 800 150 400 Other: Voiding Method Urinal Urinal Urinal - Exam GENERAL EXAM: Alert, active, comfortable in no apparent distress. On a MOUNTING INSPECTOR pump. On 2 L. HEAD: Normocephalic. EYES: Normal reaction of pupils, equal size. NOSE: Clear with pink turbinates. THROAT: No erythema or exudates. NECK: No masses, no JVD. CHEST: No chest wall deformity. LUNGS: Equal air entry with scattered rhonchi, crackles, diminished more so on the left lung base. CVS: S1 and S2 normal with no audible murmur, regular rhythm. ABDOMEN: No hepatosplenomegaly, normal bowel sounds, no guarding or rigidity. SPINE: No scoliosis or deformity SKIN: No rashes CENTRAL NERVOUS SYSTEM: No focal deficits, tone is normal in all 4 extremities. EXTREMITIES: There is no peripheral edema. No clubbing, no cyanosis. Peripheral pulses are intact. - Labs CBC & Chem 7: 08/25/18 06:02 08/25/18 06:02 Labs: Abnormal Lab Results - Last 24 Hours (Table) 08/24/18 08/24/18 08/25/18 Range/Units 14:54 14:54 06:02 RBC 2.68 L 2.09 L (4.30-5.90) m/uL Hgb 9.4 L 7.1 L D (13.0-17.5) gm/dL Hct 31.1 L 23.2 L (39.0-53.0) % MCV 115.9 H D 111.2 H (80.0-100.0) fL MCH 35.2 H (25.0-35.0) pg MCHC 30.4 L 30.4 L (31.0-37.0) g/dL RDW 18.9 H 18.7 H (11.5-15.5) % Plt Count 56 L 48 L (150-450) k/uL Neutrophils # 7.9 H 8.7 H (1.3-7.7) k/uL Lymphocytes # 0.7 L (1.0-4.8) k/uL Sodium (137-145) mmol/L Carbon Dioxide 18 L (22-30) mmol/L BUN 36 H (9-20) mg/dL Glucose 143 H (74-99) mg/dL Calcium 8.1 L (8.4-10.2) mg/dL 08/25/18 Range/Units 06:02 RBC (4.30-5.90) m/uL Hgb (13.0-17.5) gm/dL Hct (39.0-53.0) % MCV (80.0-100.0) fL MCH (25.0-35.0) pg MCHC (31.0-37.0) g/dL RDW (11.5-15.5) % Plt Count (150-450) k/uL Neutrophils # (1.3-7.7) k/uL Lymphocytes # (1.0-4.8) k/uL Sodium 134 L (137-145) mmol/L Carbon Dioxide (22-30) mmol/L BUN 33 H (9-20) mg/dL Glucose 136 H (74-99) mg/dL Calcium 7.6 L (8.4-10.2) mg/dL Microbiology - Last 24 Hours (Table) 08/23/18 13:00 Gram Stain - Preliminary Pleural Fluid Body Fluid Culture - Preliminary 08/24/18 20:46 Gram Stain - Preliminary Sputum 08/22/18 01:11 Blood Culture - Preliminary Blood No Growth after 72 hours Assessment and Plan Plan: Impression: #1 Intractable left-sided chest discomfort suspect secondary to enlarging left upper lobe mass and new left pleural effusion with suspected bone metastasis. Patient has undergone 2 bronchoscopies with biopsies without diagnosis. PET scan did show SUV of 5.6 on the left upper lobe mass. The patient was found to have a large left-sided pleural effusion. He is post thoracentesis and fluid cytology still pending for now. Meanwhile, the MRI of the spine showed mild compression deformity of the T7 and T8 vertebral bodies. There is another high signal intensity focus at the level of T6 vertebral body without enhancement. #2 Left upper lobe mass of unclear etiology. Bronchoscopies with biopsies 2 revealed no malignancy. Suspicion remains high for an underlying malignancy. If the pleural fluid cytology, was back negative, would recommend a fine-needle aspirate. #3 New left pleural effusion secondary to above. Thoracentesis was performed on 08/23/2018. Fluid analysis and pathology is pending. #4 Multiple myeloma diagnosed back in 2010 status post bone marrow transplant and receives annual bone marrow biopsies. 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 #6 Coronary artery disease with multiple stent placements in 2005 MR recently in 2013. #7 Hypertension. #8 Hyperlipidemia. #9 Chronic and ongoing tobacco dependence. ROBERT Continue pain control. Monitor hemoglobin on today's a drop in hemoglobin down to 7.0. No evidence of any bleed. Awaiting fluid cytology from the pleural space on the left. If negative, we'll going to recommend a fine-needle aspirate. Repeat hemoglobin today and we'll continue to follow.
--- NOTE | 2018-08-25 14:51 | PN ---
PROGRESS NOTE DATE OF SERVICE: 08/25/2018 CHIEF COMPLAINT: Tired. Fede is seen today in followup. He feels a little tired, but overall he feels much better, and his back pain and shoulder pain have significantly improved after thoracentesis. The cytology from the thoracentesis was negative for malignancy and consistent with empyema. The patient feels much better now. His breathing is better. No fever or chills. No nausea or vomiting. He is ambulating better. CURRENT MEDICATIONS: Reviewed in his electronic medical record. PHYSICAL EXAMINATION: On physical examination, he is alert, oriented x3. He does not appear to be in acute distress. His vital signs are temperature 97.8, afebrile, pulse 72 and regular, respiration 19, blood pressure 127/79. HEENT: Normocephalic, atraumatic. No obvious icterus. NECK: Supple. CHEST: Equal expansion bilaterally. Lungs reveal decreased breath sounds in the left base. Heart is regular rate and rhythm. ABDOMEN: Soft. No tenderness. EXTREMITIES: No edema. SKIN: No significant bruises, ecchymosis, petechiae. LABORATORY DATA: Sodium 134, potassium 4.4, chloride 106. CO2 is 24. BUN is 33, creatinine 1.03. WBCs are 10.1, hemoglobin 7.1, hematocrit 23.1, platelet count 48. IMPRESSION: 1. Nonsecretory multiple myeloma. The patient recently had evidence of progression with new bone lesion identified on PET scan. With the finding of bone marrow changes and a new marrow lesion identified on the PET scan and with correlation with recent MRI, this is most likely related to progression of underlying known nonsecretory multiple myeloma rather than metastatic carcinoma. 2. New left suspicious lung mass. However, multiple biopsies were negative and also recent cytology from pleural effusion was consistent with empyema. This certainly may represent an infection rather than underlying malignancy, but suspicion for lung malignancy cannot be excluded. Prior to hospitalization, the patient had respiratory symptoms with progressive cough with significant cough and chills for over 2 weeks. 3. Anemia and thrombocytopenia related to underlying multiple myeloma. RECOMMENDATIONS: 1. The patient is clinically improving. 2. I would consider infectious disease consultation and probably start the patient on antibiotics in view of the recent empyema. 3. In regard to his left upper lobe lung lesion, again this may represent an infectious process; however, suspicion for malignancy cannot be excluded. But it would be reasonable, since multiple biopsies were negative and cytology was negative, to treat him with a course of antibiotics and repeat CT scan in a few weeks. If there is no improvement, then a CT-guided biopsy of the lung lesion would be considered then. 4. In regard to his multiple myeloma, he was initially diagnosed about 8 years ago and he was put on a recent regimen due to progression. This needs to be changed and a new regimen should be considered once his overall condition has improved. The above was discussed with the patient. I have answered all his questions to his satisfaction. Thank you very much. MMODL / IJN: [id number] /
[2018-08-25] MEDS: LISINOPRIL 2.5 MG TAB PO SCH (15:32)
[2018-08-25 16:13] LABS: Anisocytosis Slight; HCT 23.4 % (39.0-53.0); HGB 7.3 gm/dL (13.0-17.5); Hypochromasia Marked; MCH 34.8 pg (25.0-35.0); MCHC 31.2 g/dL (31.0-37.0); MCV 111.4 fL (80.0-100.0); Macrocytosis Marked; Mean Platelet Volume 10.5; RDW 18.5 % (11.5-15.5); WBC 10.1 k/uL (3.8-10.6)
[2018-08-25 16:15] LABS: Platelet Count 44 k/uL (150-450)
[2018-08-25] MEDS: HYDROMORPHONE (PF) 10 MG in SODIUM CHLORIDE 0.9% 49 ML IV PRN (18:03)
--- NOTE | 2018-08-25 20:27 | PN ---
PROGRESS NOTE DATE OF SERVICE: August 25, 2018. PRESENTING COMPLAINT: Tired. INTERVAL HISTORY: This patient presented with acute back pain found to have acute compression fracture of T7, T8, back pain is much improved. The patient also had a with negative biopsy for malignancy. Also status post left thoracentesis. Discussed with Dr. Zacarias. He does not think this is empyema, suspicion for malignancy is still up. The patient has been out of bed. Did tolerate some diet. REVIEW OF SYSTEMS: Done for constitutional, cardiovascular, GI, pulmonary, musculoskeletal and relevant findings as above. CURRENT MEDICATIONS: Reviewed that include IV Dilaudid, pain pump, IV Toradol. PHYSICAL EXAMINATION: VITAL SIGNS: Temperature 97.5, pulse 80, respiratory 20, blood pressure 108/65, pulse ox 98% on 4 L. GENERAL APPEARANCE: Sitting up, awake. EYES: Pupils are equal. Conjunctivae normal. NECK: JVD not raised. Mass not palpable. RESPIRATORY: Effort normal. LUNGS: Diminished breath sounds. CARDIOVASCULAR: Heart sounds irregular. No edema. ABDOMEN: Soft, nontender. Liver and spleen not palpable. PSYCHIATRY: Alert and oriented x3. Mood and affect normal. INVESTIGATIONS: White count 10.1, hemoglobin 7.3. Empyema fluid is negative for malignant cells. ASSESSMENT: 1. Acute compression fracture of T7, T8 radiculopathy, exact cause undetermined. 2. Coronary artery disease. 3. Chronic obstructive pulmonary disease in a current smoker. 4. Gastroesophageal reflux disease. 5. Hyperlipidemia. 6. Essential hypertension. 7. Left lung mass, negative for malignancy, suspicion for malignancy still present. 8. Multiple myeloma with chemo and stem cell transplant in 2009. 9. Peripheral neuropathy from chemotherapy. 10.Bicytopenia. 11.Metabolic and lactic acidosis. 12.Pain control. 13.Left pleural effusion associated with left lung mass, negative for cytology. PLAN: I will DC patient's Dilaudid pain pump in the morning. Switch the patient to naproxen tonight. Pain is well controlled. Encourage the patient to be out of bed. Workup for lung mass. Continue with Pulmonary. MMODL / IJN: [id number] /
[2018-08-25] MEDS: NAPROXEN 250 MG TAB PO SCH (20:37)
[2018-08-25] MEDS: LORATADINE 10 MG TAB PO SCH (20:37)
[2018-08-25] MEDS: FAMOTIDINE 20 MG TAB PO SCH (20:37)
[2018-08-26] MEDS: oxyCODONE-APAP 10-325MG 1 EACH TAB PO PRN ×5 (04:46→20:55)
[2018-08-26] MEDS: CLOTRIMAZOLE TROCHE 10 MG TROCHE PO SCH ×5 (05:29→23:27)
[2018-08-26 06:20] LABS: Anisocytosis Slight; Basophils % (A) 0 %; Eosinophils # (A) 0.2 k/uL (0-0.7); Eosinophils % (A) 2 %; HCT 24.7 % (39.0-53.0); HGB 7.6 gm/dL (13.0-17.5); Hypochromasia Marked; Lymphocytes # (A) 0.7 k/uL (1.0-4.8); Lymphocytes % (A) 8 %; MCH 35.2 pg (25.0-35.0); MCHC 30.9 g/dL (31.0-37.0); MCV 113.9 fL (80.0-100.0); Macrocytosis Marked; Mean Platelet Volume 9.5; Monocytes # (A) 0.3 k/uL (0-1.0); Monocytes % (A) 3 %; Neutrophils # (A) 6.8 k/uL (1.3-7.7); Neutrophils % (A) 84 %; RBC 2.17 m/uL (4.30-5.90); RDW 19.1 % (11.5-15.5); WBC 8.1 k/uL (3.8-10.6)
[2018-08-26 06:23] LABS: Platelet Count 43 k/uL (150-450)
[2018-08-26 06:38] LABS: Calcium 7.7 mg/dL (8.4-10.2); Potassium 4.1 mmol/L (3.5-5.1)
--- NOTE | 2018-08-26 07:40 | CONS ---
CONSULTATION DATE OF SERVICE: 08/25/2018. REASON FOR CONSULTATION: Empyema. HISTORY OF PRESENT ILLNESS: The patient is a 63-year-old male with a past medical history significant for multiple myeloma. The patient also has a left upper lobe mass for which the patient did have a outpatient. So far a biopsy has been negative. The patient presenting to the ER at [facility] on 08/22/2018 with chief complaints of sudden onset of left-sided chest pain. The patient's pain has been mostly in the left lower chest area. The patient described the pain to be more of a sharp in nature. It was almost 10/10, and severe. The patient did have persistent shortness of breath. The patient also has a cough producing a small amount of sputum with no hemoptysis. Sputum color usually yellowish, no green. The patient denies having any URI symptoms. The patient did mention he was having some shortness of breath and cough that has been going on before he started having acute lower ribcage chest pain. The patient on presentation to the ER on August 22 did have a fever of 101.2 degrees Fahrenheit. The patient subsequently has been afebrile though. On arrival to the ER, the patient white count was normal. He did have a influenza serology that was negative. The patient did have a CT of the chest completed which did show stable left upper lobe mass, however, he was noticed to have more left pleural effusion with left basilar atelectasis consolidation and compression deformity. that was conformed subsequently by MRI. The patient did have a thoracocentesis done by Dr. Zacarias on 08/23/2018. The patient pleural fluid was cloudy, mostly bloody with of 1430 nucleated 690, . The patient also had cytology requested of the same clear fluid which was finalized showing a dense acute inflammatory cells consistent with empyema. No cytologic hence infectious disease was consulted for further recommendation of antibiotic therapy. The patient did receive one dose of Rocephin and azithromycin in the ER. The antibiotics were not continued afterwards. REVIEW OF SYSTEMS: CONSTITUTIONAL: Positive for weakness along with the fever. EYES: No complaint. ENT no complaint. RESPIRATORY as per HPI. CARDIOVASCULAR: No complaint. GENITOURINARY: No complaint. GASTROINTESTINAL: No complaint. Musculoskeletal: No complaint. INTEGUMENTARY: No complaint. Psychological: No complaint. ENDOCRINE: No complaint. NEUROLOGIC: No complaint. PAST MEDICAL HISTORY: Coronary artery disease, multiple myeloma, hypertension and , hyperlipidemia. PAST SURGICAL HISTORY: PTCA with stent. Stem cell transplant with multiple bone marrow biopsies, bronchoscopy with biopsy, EGD and colonoscopy. SOCIAL HISTORY: The patient is currently an everyday smoker. No drinking or drug use. FAMILY HISTORY: Father history of lung cancer. Mother with history of bladder cancer. Mother healthy 86 years old. ALLERGIES: No known drug allergies. MEDICATIONS: Medications include the patient is currently on Compazine, Percocet, Naproxen, Loratadine, Zestril, Neurontin, Pepcid, , baclofen, Lipitor, and Zovirax. PHYSICAL EXAMINATION: Blood pressure is 113/69 with a pulse of 80, temperature 98.4. He is 92% on 2 L nasal cannula. General description is an elderly male lying in bed in no distress. No tachypnea or accessory muscles of respiration use. HEENT: Shows slight pallor. No scleral icterus. Oral mucosa membranes are dry. No pharyngeal erythema or thrush. Neck: Trachea central. No thyromegaly. Lungs unlabored breathing with decreased breath sounds in the base, with no wheeze or crackles. Heart S1, S2. Regular rate and rhythm. Abdomen soft. No tenderness. No guarding or rigidity. Extremities: No edema of the feet. Skin examination: No rash or mass palpable. Neurologic: The patient is awake, alert, oriented times three. Mood and affect normal. LABS: Hemoglobin 7.8, white count 10.1. BUN of 33, creatinine 1.03. Electrolytes have been normal. Pleural fluid report as mentioned above. Influenza serology was negative. CT report as mentioned above. DIAGNOSTIC IMPRESSION AND PLAN: Patient admitted to the hospital with severe left-sided chest pain which has been mostly left lower chest area. The patient also has associated cough, shortness of breath, and did have fever of 101.8 degrees Fahrenheit, more likely pointed towards pneumonia with secondary parapneumonic effusion. The patient is status post thoracenteses predominantly and no other cytology is suspicious for empyema likely pointing towards pneumonia with parapneumonic effusion and likely community- acquired pathogen as the pleural fluid has been negative for any resistant bacteria at this point. Sputum cultures collected and those are currently pending. PLAN: 1. We will start the patient on Rocephin 2 g daily and Levaquin 750 p.o. daily. 2. Depending upon his clinical response, we will adjust the medication further if needed. Thank you for this consultation. We will follow this patient along with you. MMODL / IJN: [id number] /
[2018-08-26 08:10] LABS: C Reactive Protein 216.7 mg/L (<10.0)
[2018-08-26] MEDS: GABAPENTIN 300 MG CAP PO SCH ×3 (08:36→20:55)
[2018-08-26] MEDS: SODIUM BICARBONATE TAB 650 MG TAB PO SCH ×3 (08:37→20:55)
[2018-08-26] MEDS: ACYCLOVIR 200 MG CAP PO SCH ×2 (08:37→20:54)
[2018-08-26] MEDS: NAPROXEN 250 MG TAB PO SCH ×2 (08:37→20:55)
[2018-08-26] MEDS: LEVOFLOXACIN 750 MG TAB PO SCH (08:37)
[2018-08-26] MEDS: LIDOCAINE 5% PATCH TOPICAL SCH (08:41)
[2018-08-26] MEDS: LISINOPRIL 2.5 MG TAB PO SCH (12:37)
[2018-08-26] MEDS: ATORVASTATIN 40 MG TAB PO SCH (12:37)
--- NOTE | 2018-08-26 13:31 | XR ---
EXAMINATION TYPE: XR chest 1V DATE OF EXAM: 08/26/2018 COMPARISON: 08/23/2018 HISTORY: 63-year-old male left upper lobe opacity, effusion follow-up TECHNIQUE: Single frontal view of the chest is obtained. FINDINGS: Left heart margin remains obscured by adjacent pleural parenchymal disease. Masslike consolidation in the lingula and underlying small left pleural effusion similar to slightly worsened. IMPRESSION: Masslike consolidation in the lingula similar to slightly worsened. Continued [id number] left pleural effusion.
--- NOTE | 2018-08-26 14:12 | P.PN ---
Subjective Progress Note Date: 08/26/18 This is a very pleasant 63-year-old gentleman who follows with Dr. Coelho as his primary care physician. He has a history of coronary artery disease with previous stent placements in 2004, 2013, hyperlipidemia, hypertension, multiple myeloma with previous bone marrow transplant in 2010, annual bone marrow biopsies and follows with Dr. Reynolds for the same. He also has a more recent history of a large left upper lobe lung mass. PET scan from 07/28/2018 revealed hypermetabolic left hilar reticulated lesion measuring 4.2 x 2.8 with a max SUV of 5.6. Primary lung carcinoma within the differential. There is also new hypermetabolic focus in the left lateral mid rib with a max SUV of 2.94. There were new hypermetabolic foci in the thoracic spine with a max SUV of 3.7. There is a more prominent hypermetabolic focus at T8 with a max SUV of 11.83. There is also new hypermetabolic focus in the right upper sacrum with a max SUV of 7.12. No definitive corresponding lytic lesion was present. He had undergone bronchoscopy with transbronchial biopsies on 08/08/2018 which revealed no evidence of malignancy, he had a subsequent navigational bronchoscopy on 08/16/2018 with more specific transbronchial biopsies and transbronchial needle aspirates, washes and brushings all of which were negative for malignancy. His PET scan does show uptake with an SUV value of 5.6 in that area. The patient presented here to the emergency room early this morning with complaints of significant left-sided posterior back pain which was radiating through to his left chest anteriorly. He was quite uncomfortable. CT scan of the chest revealed a small to moderate left pleural effusion with left basilar atelectasis/consolidation. There is persistent left upper lobe mass. Small pericardial effusion. EKG revealed normal sinus rhythm with some nonspecific ST and T wave abnormalities. Troponins are negative 3. Influenza screen is negative. White count 5.1. Hemoglobin 8.8. Platelet count 59,000. Creatinine 1.09. Lactic acid 3.3. Currently 1.2. The patient was seen today in consultation on the selective care unit. He is awake and alert. He is in a significant amount of discomfort. His been treated with Dilaudid alternating with morphine. He is taking Percocets 4-5 tablets a day at home for neuropathy. Currently maintaining O2 saturations in the mid 90s on 2 L/m per nasal cannula. He's been afebrile. Hemodynamically stable. The patient is seen again today 08/23/2018 in follow-up on the selective care unit. He is much more relaxed. His pain is much better controlled. He was initiated on a [employer] ANALYST pump of hydromorphone. He is maintaining good O2 saturations in the 90s on 2 L/m per nasal cannula. He's been afebrile. Hemodynamically stable. He is still dyspneic with minimal exertion. The plan is for left-sided thoracentesis today. The patient is seen again today 08/24/2018 in follow-up on the selective care unit. He is awake and alert in no acute distress. Continuing to do better each day. Pain is well controlled today. He is maintaining good O2 saturations in the 90s on 2 L/m per nasal cannula. She's afebrile. Hemodynamically stable. Blood culture reveals no growth. Sputum culture is pending. Pleural fluid analysis pending. White count 11.0. Hemoglobin 12.8. Creatinine 0.75. On 08/25/2018, the patient's comfortable. Back pain is under much better control. He is using mainly the Percocet and his not used his [employer] CHANGE ANALYST quite a bit over the past 24 hours. His breathing is also stable. No cough sputum production chest tightness or wheezing. The pleural fluid cytology still pending for now. The plan is to wait until the fluid cytology is back. If negative, the patient will need a fine-needle aspirate of the left upper lobe mass which seems to be suspicious for underlying bronchogenic cancer. Nevertheless, despite our suspicion, we haven't been able to confirm malignancy in this patient. The patient's hemoglobin is at 7.0 which is lower compared to yesterday. We'll monitor the counts. No signs of any bleeding at this point in time. The MRI of the spine showed compression deformity of the T7 and T8 vertebral bodies without pathologic enhancement or focal destruction to suggest metastases. This is most likely related to osteoporosis or osteomalacia. There is another focal high signal area and the T6 vertebral spine without enhancement and this could be an area of fatty marrow. The fluid chemistry is still pending to differentiate between transudate and exudate. On 08/26/2018 I'm seeing this patient for a follow-up. Doing well. Essentially the same as yesterday. No worsening shortness of breath.The chest x -ray however. This morning and showed a masslike consolidation in the lingula, unchanged and the pleural effusion has been drained for now. The patient has a negative fluid cytology. I'm a bit confused at the fluid cytology mentioned the possibility of empyema. The fluid itself is very low white cell count and I doubt the possibility of empyema. Infectious disease consultation was obtained and the patient was started on broad-spectrum antibiotics. No fever. No chills. Pain is under good control for now. The patient has no leukocytosis. With the Combivent 8.1. Hemoglobin stable at 7.6. Objective - Vital Signs Vital signs: Vital Signs Temp 98.2 F 08/26/18 08:00 Pulse 87 08/26/18 12:45 Resp 10 L 08/26/18 12:45 BP 133/68 08/26/18 12:45 Pulse Ox 95 08/26/18 12:45 Intake & Output 08/25/18 08/26/18 08/26/18 18:59 06:59 18:59 Intake Total 986 962 Output Total 400 700 500 Balance 586 -700 462 Weight 78.8 kg Intake: IV 100 0.9 100 Intake, IV Titration 6 Amount Hydromorphone (Pf) 10 mg 6 In Sodium Chloride 0.9% 49 ml @ As Directed IV PER PROTOCOL PRN Rx#: [id number] Oral 880 962 Output: Urine 400 700 500 Other: Voiding Method Urinal Urinal Urinal - Exam GENERAL EXAM: Alert, active, comfortable in no apparent distress. On a [employer] ANALYST pump. On 2 L. HEAD: Normocephalic. EYES: Normal reaction of pupils, equal size. NOSE: Clear with pink turbinates. THROAT: No erythema or exudates. NECK: No masses, no JVD. CHEST: No chest wall deformity. LUNGS: Equal air entry with scattered rhonchi, crackles, diminished more so on the left lung base. CVS: S1 and S2 normal with no audible murmur, regular rhythm. ABDOMEN: No hepatosplenomegaly, normal bowel sounds, no guarding or rigidity. SPINE: No scoliosis or deformity SKIN: No rashes CENTRAL NERVOUS SYSTEM: No focal deficits, tone is normal in all 4 extremities. EXTREMITIES: There is no peripheral edema. No clubbing, no cyanosis. Peripheral pulses are intact. - Labs CBC & Chem 7: 08/26/18 05:58 08/26/18 05:58 Labs: Abnormal Lab Results - Last 24 Hours (Table) 08/25/18 08/26/18 08/26/18 Range/Units 15:50 05:58 05:58 RBC 2.10 L 2.17 L (4.30-5.90) m/uL Hgb 7.3 L 7.6 L (13.0-17.5) gm/dL Hct 23.4 L 24.7 L (39.0-53.0) % MCV 111.4 H 113.9 H (80.0-100.0) fL MCH 35.2 H (25.0-35.0) pg MCHC 30.9 L (31.0-37.0) g/dL RDW 18.5 H 19.1 H (11.5-15.5) % Plt Count 44 L 43 L (150-450) k/uL Lymphocytes # 0.7 L (1.0-4.8) k/uL BUN 29 H (9-20) mg/dL Glucose 128 H (74-99) mg/dL Calcium 7.7 L (8.4-10.2) mg/dL C-Reactive Protein 216.7 H (<10.0) mg/L Microbiology - Last 24 Hours (Table) 08/22/18 01:11 Blood Culture - Preliminary Blood No Growth after 96 hours Assessment and Plan Plan: Impression: #1 Intractable left-sided chest discomfort suspect secondary to enlarging left upper lobe mass and new left pleural effusion with suspected bone metastasis. Patient has undergone 2 bronchoscopies with biopsies without diagnosis. PET scan did show SUV of 5.6 on the left upper lobe mass. The patient was found to have a large left-sided pleural effusion. He is post thoracentesis and fluid cytology was negative for malignancy.. Meanwhile, the MRI of the spine showed mild compression deformity of the T7 and T8 vertebral bodies. There is another high signal intensity focus at the level of T6 vertebral body without enhancement. #2 Left upper lobe mass of unclear etiology. Bronchoscopies with biopsies 2 revealed no malignancy. Suspicion remains high for an underlying malignancy. If the pleural fluid cytology, was back negative, would recommend a fine-needle aspirate. #3 New left pleural effusion secondary to above. Thoracentesis was performed on 08/23/2018. Fluid analysis and pathology is negative for malignancy. #4 Multiple myeloma diagnosed back in 2011 status post bone marrow transplant and receives annual bone marrow biopsies. 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 #6 Coronary artery disease with multiple stent placements in 2005 MR recently in 2013. #7 Hypertension. #8 Hyperlipidemia. #9 Chronic and ongoing tobacco dependence. #10 chronic anemia PLAN Would highly doubt the possibility of a left upper lobe pneumonia/empyema diagnosis. The fluid itself was nonpurulent and the sacral 10 the pleural fluid is quite low which makes it very unlikely that the fluid itself is an empyema. He had 8, suspicion for malignancy is still there and it's high. My suggestion is to proceed with a fine-needle aspirate of the left upper lobe to get another confirmation whether there is a pulmonary malignancy or not. We'll continue to follow. He has adequate pain control. Continue current antibiotic coverage.
--- NOTE | 2018-08-26 18:10 | PN ---
PROGRESS NOTE DATE OF SERVICE: 08/26/2018. REASON FOR FOLLOWUP: Possible empyema. INTERVAL HISTORY: The patient is currently afebrile. The patient is breathing comfortably. The patient's pain to the left has decreased in intensity. The patient continues to have a cough and possible aspiration. No hemoptysis. No nausea, no vomiting. No abdominal pain. No diarrhea. PHYSICAL EXAMINATION: Blood pressure 133/68 with a pulse of 87, temperature 98.2. He is 95% on 2 L nasal cannula. General description is an elderly male up in the bed in no distress. Respiratory system: Unlabored breathing with decreased breath sounds in the bases. No wheeze. Heart S1, S2. Regular rate and rhythm. Abdomen soft, no tenderness. LABS: Hemoglobin 7.6, white count 8.9, BUN of 29, creatinine is 1.10. CRP is 216. The patient did have a chest x-ray completed today which did show more consolidation slightly worsened small to moderate left pleural effusion. DIAGNOSTIC IMPRESSION AND PLAN: Patient admitted to the hospital with left-sided chest pain. The patient did have a fever of 101 degrees Fahrenheit on presentation. The patient found to have a left- sided pleural fluid status post thoracocentesis. The white count was not elevated and the culture has been negative so far. However, cytology has been suspicious for a possible empyema in view of the fever and elevated CRP, underlying infection not entirely excluded. currently pending. The patient will continue , Rocephin and Levaquin while waiting for the sputum culture to finalize. Agree with further workup for the mass in the lingula with either bronch or a CT-guided needle biopsy. However, in view of the previous needle biopsy being negative, may benefit from and biopsy. Continue supportive care. MMODL / IJN: [id number] /
--- NOTE | 2018-08-26 19:16 | PN ---
PROGRESS NOTE DATE OF SERVICE: August 26, 2018. PRESENTING COMPLAINT: Tired. INTERVAL HISTORY: This patient presented with acute compression fracture of T7, T8. Pain is much better controlled. Been out of bed. Also has got the left lung mass, negative for malignancy via bronchoscopy/biopsy, status post left thoracentesis. Pleural fluid is not felt to be empyema. Overall patient is feeling much better. REVIEW OF SYSTEMS: Done for constitutional, cardiovascular, GI, pulmonary, musculoskeletal and relevant findings as above. CURRENT MEDICATIONS: Reviewed. Dilaudid pain pump was discontinued. The patient is on IV ceftriaxone and Levaquin per ID. PHYSICAL EXAMINATION: VITAL SIGNS: Temperature 98.2, pulse 85, respiratory rate 20, blood pressure 116/64, pulse ox 97% on 3 L. GENERAL APPEARANCE: Sitting up. Awake. EYES: Pupils are equal. Conjunctivae normal. NECK: JVD not raised. Mass not palpable. RESPIRATORY: Effort normal. LUNGS: Diminished breath sounds. CARDIOVASCULAR: Heart sounds normal. No edema. ABDOMEN: Soft, nontender. Liver and spleen not palpable. PSYCHIATRY: Alert and oriented x3. Mood and affect normal. INVESTIGATIONS: White count 8.1, hemoglobin 7.6, potassium 4.1, BUN 29, creatinine 1.10. ASSESSMENT: 1. Acute compression fracture of T7, T8 with radiculopathy, exact cause undetermined. 2. Coronary artery disease. 3. Chronic obstructive pulmonary disease in a current smoker. 4. Gastroesophageal reflux disease. 5. Hyperlipidemia. 6. Essential hypertension. 7. Left lung mass, negative for malignancy, patient's malignancy still present. 8. Multiple myeloma with stem cell in 2009. 9. Peripheral neuropathy from chemotherapy. 10.Bicytopenia. 11.Metabolic and lactic acidosis. 12.Left pleural effusion postsurgical left leg negative for cytology. PLAN: Discussed with Dr. Zacarias. It is not felt to be empyema. The patient is on antibiotics. The patient had a fever when he initially presented. Dr. Zacarias is planning to do a repeat lung biopsy tomorrow per Interventional Radiology. This is being conveyed to the patient. MMODL / IJN: [id number] /
[2018-08-26] MEDS: LORATADINE 10 MG TAB PO SCH (20:55)
[2018-08-26] MEDS: FAMOTIDINE 20 MG TAB PO SCH (20:55)
[2018-08-27] MEDS: oxyCODONE-APAP 10-325MG 1 EACH TAB PO PRN ×5 (00:46→20:45)
[2018-08-27] MEDS: CLOTRIMAZOLE TROCHE 10 MG TROCHE PO SCH ×4 (05:10→20:46)
[2018-08-27 08:25] LABS: Anisocytosis Slight; Basophils % (A) 0 %; Eosinophils # (A) 0.2 k/uL (0-0.7); Eosinophils % (A) 2 %; HCT 25.3 % (39.0-53.0); HGB 7.4 gm/dL (13.0-17.5); Hypochromasia Marked; Lymphocytes # (A) 0.7 k/uL (1.0-4.8); Lymphocytes % (A) 8 %; MCH 33.7 pg (25.0-35.0); MCHC 29.3 g/dL (31.0-37.0); MCV 114.8 fL (80.0-100.0); Macrocytosis Marked; Mean Platelet Volume 9.6; Monocytes # (A) 0.3 k/uL (0-1.0); Monocytes % (A) 3 %; Neutrophils # (A) 7.6 k/uL (1.3-7.7); Neutrophils % (A) 85 %; RDW 18.7 % (11.5-15.5)
[2018-08-27 08:38] LABS: Platelet Count 39 k/uL (150-450)
[2018-08-27] MEDS: NAPROXEN 250 MG TAB PO SCH ×2 (09:39→20:46)
[2018-08-27] MEDS: SODIUM BICARBONATE TAB 650 MG TAB PO SCH ×3 (09:39→20:46)
[2018-08-27] MEDS: GABAPENTIN 300 MG CAP PO SCH ×3 (09:39→20:46)
[2018-08-27] MEDS: LEVOFLOXACIN 750 MG TAB PO SCH (09:39)
[2018-08-27] MEDS: ACYCLOVIR 200 MG CAP PO SCH ×2 (09:39→20:46)
[2018-08-27] MEDS: LIDOCAINE 5% PATCH TOPICAL SCH (09:40)
[2018-08-27 09:55] LABS: Polychromasia Present
[2018-08-27 09:56] LABS: RBC Fragments Present
[2018-08-27 09:57] LABS: Target Cells Present
--- NOTE | 2018-08-27 10:13 | P.PN ---
Subjective Progress Note Date: 08/27/18 Principal diagnosis: Intractable left-sided chest discomfort, left upper lobe mass, left pleural effusion This is a very pleasant 63-year-old gentleman who follows with Dr. Coelho as his primary care physician. He has a history of coronary artery disease with previous stent placements in 2004, 2013, hyperlipidemia, hypertension, multiple myeloma with previous bone marrow transplant in 2010, annual bone marrow biopsies and follows with Dr. Reynolds for the same. He also has a more recent history of a large left upper lobe lung mass. PET scan from 07/28/2018 revealed hypermetabolic left hilar reticulated lesion measuring 4.2 x 2.8 with a max SUV of 5.6. Primary lung carcinoma within the differential. There is also new hypermetabolic focus in the left lateral mid rib with a max SUV of 2.94. There were new hypermetabolic foci in the thoracic spine with a max SUV of 3.7. There is a more prominent hypermetabolic focus at T8 with a max SUV of 11.83. There is also new hypermetabolic focus in the right upper sacrum with a max SUV of 7.12. No definitive corresponding lytic lesion was present. He had undergone bronchoscopy with transbronchial biopsies on 08/08/2018 which revealed no evidence of malignancy, he had a subsequent navigational bronchoscopy on 08/16/2018 with more specific transbronchial biopsies and transbronchial needle aspirates, washes and brushings all of which were negative for malignancy. His PET scan does show uptake with an SUV value of 5.6 in that area. The patient presented here to the emergency room early this morning with complaints of significant left-sided posterior back pain which was radiating through to his left chest anteriorly. He was quite uncomfortable. CT scan of the chest revealed a small to moderate left pleural effusion with left basilar atelectasis/consolidation. There is persistent left upper lobe mass. Small pericardial effusion. EKG revealed normal sinus rhythm with some nonspecific ST and T wave abnormalities. Troponins are negative 3. Influenza screen is negative. White count 5.1. Hemoglobin 8.8. Platelet count 59,000. Creatinine 1.09. Lactic acid 3.3. Currently 1.2. The patient was seen today in consultation on the selective care unit. He is awake and alert. He is in a significant amount of discomfort. His been treated with Dilaudid alternating with morphine. He is taking Percocets 4-5 tablets a day at home for neuropathy. Currently maintaining O2 saturations in the mid 90s on 2 L/m per nasal cannula. He's been afebrile. Hemodynamically stable. The patient is seen again today 08/23/2018 in follow-up on the selective care unit. He is much more relaxed. His pain is much better controlled. He was initiated on a SHRINKER pump of hydromorphone. He is maintaining good O2 saturations in the 90s on 2 L/m per nasal cannula. He's been afebrile. Hemodynamically stable. He is still dyspneic with minimal exertion. The plan is for left-sided thoracentesis today. The patient is seen again today 08/24/2018 in follow-up on the selective care unit. He is awake and alert in no acute distress. Continuing to do better each day. Pain is well controlled today. He is maintaining good O2 saturations in the 90s on 2 L/m per nasal cannula. She's afebrile. Hemodynamically stable. Blood culture reveals no growth. Sputum culture is pending. Pleural fluid analysis pending. White count 11.0. Hemoglobin 12.8. Creatinine 0.75. On 08/25/2018, the patient's comfortable. Back pain is under much better control. He is using mainly the Percocet and his not used his SHRINKER quite a bit over the past 24 hours. His breathing is also stable. No cough sputum production chest tightness or wheezing. The pleural fluid cytology still pending for now. The plan is to wait until the fluid cytology is back. If negative, the patient will need a fine-needle aspirate of the left upper lobe mass which seems to be suspicious for underlying bronchogenic cancer. Nevertheless, despite our suspicion, we haven't been able to confirm malignancy in this patient. The patient's hemoglobin is at 7.0 which is lower compared to yesterday. We'll monitor the counts. No signs of any bleeding at this point in time. The MRI of the spine showed compression deformity of the T7 and T8 vertebral bodies without pathologic enhancement or focal destruction to suggest metastases. This is most likely related to osteoporosis or osteomalacia. There is another focal high signal area and the T6 vertebral spine without enhancement and this could be an area of fatty marrow. The fluid chemistry is still pending to differentiate between transudate and exudate. On 08/26/2018 I'm seeing this patient for a follow-up. Doing well. Essentially the same as yesterday. No worsening shortness of breath.The chest x -ray however. This morning and showed a masslike consolidation in the lingula, unchanged and the pleural effusion has been drained for now. The patient has a negative fluid cytology. I'm a bit confused at the fluid cytology mentioned the possibility of empyema. The fluid itself is very low white cell count and I doubt the possibility of empyema. Infectious disease consultation was obtained and the patient was started on broad-spectrum antibiotics. No fever. No chills. Pain is under good control for now. The patient has no leukocytosis. With the Combivent 8.1. Hemoglobin stable at 7.6. On 08/27/2016 patient seen in follow-up on selective care unit, is awake and alert, his pain is under better control, SHRINKER Dilaudid has been discontinued, and patient's pain control is maintained with Percocet. Patient is status post left-sided thoracentesis would removal of 1.3 L of pleural fluid, and cytology showed no cytologically malignant cells, however it showed cells consistent with questionable empyema. Patient has been started on broad-spectrum antibiotics with a combination of ceftriaxone, and Levaquin, and Zovirax. Patient has productive cough, he is bringing up thick yellow sputum. Today's lab work has been reviewed, showed white blood cell count of 9.0, hemoglobin of 7.4, BMP not done, pro-calcitonin level has been ordered, and is pending at this time. No fever or chills, patient currently on 2 L of nasal cannula with a pulse ox of 95%, lung sounds reveal reveal diminished breath sounds over left lower lobe, some scattered rhonchi in upper lobes. Yesterday chest x-ray showed a masslike consolidation in the lingula slightly worsened. And small-to- moderate left pleural effusion. Pleural fluid cultures remain negative thus far. Objective - Vital Signs Vital signs: Vital Signs Temp 97.3 F L 08/27/18 08:00 Pulse 65 08/27/18 08:00 Resp 16 08/27/18 08:00 BP 122/70 08/27/18 08:00 Pulse Ox 95 08/27/18 08:00 Intake & Output 08/26/18 08/27/18 08/27/18 18:59 06:59 18:59 Intake Total 962 240 Output Total 800 Balance 162 240 Weight 74.5 kg Intake: Oral 962 240 Output: Urine 800 Other: Voiding Method Urinal Toilet # Voids 1 - Exam GENERAL EXAM: Alert, pleasant, 63-year-old white male 2 L per nasal cannula comfortable in no apparent distress. HEAD: Normocephalic/atraumatic. EYES: Normal reaction of pupils, equal size. Conjunctiva pink, sclera white. NOSE: Clear with pink turbinates. THROAT: No erythema or exudates. NECK: No masses, no JVD, no thyroid enlargement, no adenopathy. CHEST: No chest wall deformity. Symmetrical expansion. LUNGS: Equal air entry with diminished breath sounds over left lower lobe, scattered rhonchi CVS: Regular rate and rhythm, normal S1 and S2, no gallops, no murmurs, no rubs ABDOMEN: Soft, nontender. No hepatosplenomegaly, normal bowel sounds, no guarding or rigidity. EXTREMITIES: No clubbing, no edema, no cyanosis, 2+ pulses and upper and lower extremities. MUSCULOSKELETAL: Muscle strength and tone normal. SPINE: No scoliosis or deformity SKIN: No rashes CENTRAL NERVOUS SYSTEM: Alert and oriented -3. No focal deficits, tone is normal in all 4 extremities. PSYCHIATRIC: Alert and oriented -3. Appropriate affect. Intact judgment and insight. - Labs CBC & Chem 7: 08/27/18 08:00 08/26/18 05:58 Labs: Abnormal Lab Results - Last 24 Hours (Table) 08/27/18 Range/Units 08:00 RBC 2.20 L (4.30-5.90) m/uL Hgb 7.4 L (13.0-17.5) gm/dL Hct 25.3 L (39.0-53.0) % MCV 114.8 H (80.0-100.0) fL MCHC 29.3 L (31.0-37.0) g/dL RDW 18.7 H (11.5-15.5) % Plt Count 39 L (150-450) k/uL Lymphocytes # 0.7 L (1.0-4.8) k/uL Microbiology - Last 24 Hours (Table) 08/23/18 13:00 Gram Stain - Final Pleural Fluid Body Fluid Culture - Final 08/24/18 20:46 Gram Stain - Final Sputum Sputum Culture - Final Perlita albicans 08/22/18 01:11 Blood Culture - Preliminary Blood No Growth after 120 hours Assessment and Plan Plan: Assessment: #1 Intractable left-sided chest discomfort suspect secondary to enlarging left upper lobe mass and new left pleural effusion with suspected bone metastasis. Patient has undergone 2 bronchoscopies with biopsies without diagnosis. PET scan did show SUV of 5.6 on the left upper lobe mass. The patient was found to have a large left-sided pleural effusion. He is post thoracentesis and fluid cytology was negative for malignancy.. Meanwhile, the MRI of the spine showed mild compression deformity of the T7 and T8 vertebral bodies. There is another high signal intensity focus at the level of T6 vertebral body without enhancement. #2 Left upper lobe mass of unclear etiology. Bronchoscopies with biopsies 2 revealed no malignancy. Suspicion remains high for an underlying malignancy. If the pleural fluid cytology, was back negative, would recommend a fine-needle aspirate. #3 New left pleural effusion secondary to above. Thoracentesis was performed on 08/23/2018. Fluid analysis and pathology is negative for malignancy. #4 Multiple myeloma diagnosed back in 2010 status post bone marrow transplant and receives annual bone marrow biopsies. 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 #6 Coronary artery disease with multiple stent placements in 2005 MR recently in 2013. #7 Hypertension. #8 Hyperlipidemia. #9 Chronic and ongoing tobacco dependence. #10 chronic anemia Plan: Continue with current antibiotic coverage, Percosset on a level is pending, no fever or chills, his pain is better controlled on oral Percocet. Vital signs are stable, we will consult interventional radiology for a fine-needle aspirate biopsy of the left upper lobe mass. Will continue to follow I performed a history & physical examination of the patient and discussed their management with my nurse practitioner, Ladonna Jain. I reviewed the nurse practitioner's note and agree with the documented findings and plan of care. Lung sounds are positive for diminished breath sounds at the left lower base, with scattered rhonchi. The findings and the impression was discussed with the patient. I attest to the documentation by the nurse practitioner. Time with Patient: Less than 30
[2018-08-27] MEDS: ATORVASTATIN 40 MG TAB PO SCH (11:43)
[2018-08-27] MEDS: LISINOPRIL 2.5 MG TAB PO SCH (11:43)
--- NOTE | 2018-08-27 15:59 | PN ---
PROGRESS NOTE DATE OF SERVICE: 08/27/2018 REASON FOR FOLLOWUP: Possible left-sided pneumonia and empyema. INTERVAL HISTORY: The patient is currently afebrile. The patient is complaining of feeling weak and tired, and no energy. The patient's left-sided chest pain has improved. The patient does continue to have a cough, bringing up some sputum. No nausea, no vomiting, no abdominal pain and no diarrhea. PHYSICAL EXAMINATION: Blood pressure 126/72 with a pulse of 127, temperature 97. She is 98% on 2 L nasal cannula. General description is an elderly male lying in bed in no distress. RESPIRATORY SYSTEM: Unlabored breathing with decreased breath sounds at the base. No wheeze. HEART: S1, S2. Regular rate and rhythm. ABDOMEN: Soft. No tenderness. LABS: Hemoglobin 7.4, white count 9.0 with a BUN of 29, creatinine 1.10. Sputum with Perlita albicans. The pleural fluid culture has been negative. DIAGNOSTIC IMPRESSION AND PLAN: Patient admitted to hospital with a fever and left-sided chest pain. This patient did have evidence of pleural fluid, status post thoracocentesis. His white count is not significant elevated. However, cytology is suspicious for empyema. In view of the fever, will treat as a possible infection, though his mass needs to be biopsied, as scheduled by Pulmonary. Continue with Rocephin and Levaquin at this point. Continue supportive care. MMODL / IJN: [id number] /
--- NOTE | 2018-08-27 17:08 | PN ---
PROGRESS NOTE DATE OF SERVICE: 08/27/2018 PRESENTING COMPLAINT: Tired. INTERVAL HISTORY: This patient presented with acute compression fracture of T7, T8. Pain is well controlled. Also there was a left lung mass, negative for malignancy by bronchoscopy as an outpatient, status post left thoracentesis. Patient is pending a lung biopsy today. Otherwise comfortable. REVIEW OF SYSTEMS: Done for constitutional, cardiovascular, GI, pulmonary; relevant findings as above. CURRENT MEDICATIONS: Reviewed. They include IV ceftriaxone and Levaquin. PHYSICAL EXAMINATION: Temperature 97, pulse 120, respiration 16, blood pressure 126/72, pulse ox 98% on 2 L. GENERAL APPEARANCE: Sitting up, awake. EYES: Pupils equal. Conjunctivae normal. NECK: JVD not raised. Mass not palpable. RESPIRATORY: Effort normal. LUNGS: Diminished breath sounds. CARDIOVASCULAR: Heart sounds normal. No edema. ABDOMEN: Soft, nontender. Liver and spleen not palpable. PSYCHIATRY: Alert and oriented x3. Mood and affect normal. INVESTIGATIONS: White count 9, hemoglobin 7.4. ASSESSMENT: 1. Acute compression fracture of T7, T8 with radiculopathy. Pain well controlled. Exact cause undetermined. 2. Coronary artery disease. 3. Chronic obstructive pulmonary disease in a current smoker. 4. Gastroesophageal reflux disease. 5. Hyperlipidemia. 6. Essential hypertension. 7. Left lung mass, negative for malignancy per biopsy during bronchoscopy. Repeat biopsy pending today. 8. Multiple myeloma. 9. Peripheral neuropathy from chemotherapy. 10.Bicytopenia. 11.Metabolic and lactic acidosis. 12.Left pleural effusion, postsurgical, status post thoracentesis. PLAN: Platelets are running low. Interventional Radiology was concerned about the biopsy in that setting. Hematology is aware. Discussed with the patient. Continue current medication and treatment plan. Patient's procalcitonin was 1.0. Will follow. I spoke with Pulmonary earlier and also spoke with Rani from Oncology. Also discussed with the patient. Total time spent today was about 40 minutes with over 25 minutes of discussion. MMODL / IJN: [id number] /
--- NOTE | 2018-08-27 20:19 | P.PN ---
Subjective Progress Note Date: 08/27/18 Principal diagnosis: back pain, history of multiple myeloma, new lung mass In follow-up today patient has good pain control, he has had drainage of empyema , coughing up brown, thin sputum, no blood, he is pending IR biopsy of lung mass but platelets are too low for procedure. Bicytopenia persists, currently asymptomatic, no bleeding, fevers, nausea or diarrhea. Objective - Vital Signs Vital signs: Vital Signs Temp 97.1 F L 08/27/18 15:52 Pulse 85 08/27/18 15:52 Resp 16 08/27/18 15:52 BP 119/58 08/27/18 15:52 Pulse Ox 96 08/27/18 15:52 Intake & Output 08/26/18 08/27/18 08/27/18 18:59 06:59 18:59 Intake Total 962 480 Output Total 800 Balance 162 480 Weight 74.5 kg Intake: Oral 962 480 Output: Urine 800 Other: Voiding Method Urinal Toilet # Voids 1 1 - Labs CBC & Chem 7: 08/27/18 08:00 08/26/18 05:58 Labs: Abnormal Lab Results - Last 24 Hours (Table) 08/25/18 08/27/18 Range/Units 06:00 08:00 RBC 2.20 L (4.30-5.90) m/uL Hgb 7.4 L (13.0-17.5) gm/dL Hct 25.3 L (39.0-53.0) % MCV 114.8 H (80.0-100.0) fL MCHC 29.3 L (31.0-37.0) g/dL RDW 18.7 H (11.5-15.5) % Plt Count 39 L (150-450) k/uL Lymphocytes # 0.7 L (1.0-4.8) k/uL Procalcitonin 1.00 H (0.02-0.09) ng/mL Microbiology - Last 24 Hours (Table) 08/23/18 13:00 Gram Stain - Final Pleural Fluid Body Fluid Culture - Final 08/24/18 20:46 Gram Stain - Final Sputum Sputum Culture - Final Perlita albicans 08/22/18 01:11 Blood Culture - Preliminary Blood No Growth after 120 hours Assessment and Plan (1) Acute thoracic back pain Narrative/Plan: Currently controlled Current Visit: Yes Status: Acute Priority: High Code(s): M54.6 - PAIN IN THORACIC SPINE SNOMED Code(s): 289357844 (2) Bicytopenia Narrative/Plan: Chronic, secondary to myeloma, likely exacerbated from infection. No PRBC for today, CBC monitoring. For platelet counts see below for further plans Current Visit: Yes Status: Chronic Priority: Medium Code(s): D75.89 - OTHER SPECIFIED DISEASES OF BLOOD AND BLOOD-FORMING ORGANS SNOMED Code(s): 367199114 (3) Mass of upper lobe of left lung Narrative/Plan: Pending IR biopsy. Discussed case with IM and have received message from IR RN. Plan is to infuse with a unit of platelets in AM, recheck platelet count. If 50,000 or higher IR will consider proceeding with biopsy, an additional unit of platelets has been ordered to be given during procedure at IR discretion. Current Visit: Yes Status: Acute Priority: High Code(s): R91.8 - OTHER NONSPECIFIC ABNORMAL FINDING OF LUNG FIELD SNOMED Code(s): 488409456 (4) Myeloma Narrative/Plan: Myeloma labs stable at this time Current Visit: Yes Status: Acute Priority: Medium Code(s): C90.00 - MULTIPLE MYELOMA NOT HAVING ACHIEVED REMISSION SNOMED Code(s): 663442092
[2018-08-27] MEDS: LORATADINE 10 MG TAB PO SCH (20:46)
[2018-08-27] MEDS: FAMOTIDINE 20 MG TAB PO SCH (20:46)
[2018-08-28] MEDS: oxyCODONE-APAP 10-325MG 1 EACH TAB PO PRN ×5 (00:27→20:24)
[2018-08-28] MEDS: CLOTRIMAZOLE TROCHE 10 MG TROCHE PO SCH ×5 (00:28→20:23)
[2018-08-28 07:06] LABS: Anisocytosis Slight; Basophils # (A) 0.1 k/uL (0-0.2); Basophils % (A) 1 %; Eosinophils # (A) 0.1 k/uL (0-0.7); Eosinophils % (A) 1 %; HCT 23.9 % (39.0-53.0); HGB 7.2 gm/dL (13.0-17.5); Hypochromasia Marked; Lymphocytes # (A) 0.9 k/uL (1.0-4.8); Lymphocytes % (A) 10 %; MCH 34.7 pg (25.0-35.0); MCV 115.9 fL (80.0-100.0); Macrocytosis Marked; Mean Platelet Volume 9.1; Monocytes # (A) 0.2 k/uL (0-1.0); Monocytes % (A) 3 %; Neutrophils # (A) 7.2 k/uL (1.3-7.7); Neutrophils % (A) 81 %; RBC 2.06 m/uL (4.30-5.90); WBC 8.9 k/uL (3.8-10.6)
[2018-08-28 07:13] LABS: Platelet Count 39 k/uL (150-450)
[2018-08-28] MEDS: LEVOFLOXACIN 750 MG TAB PO SCH (08:43)
[2018-08-28] MEDS: LIDOCAINE 5% PATCH TOPICAL SCH (08:43)
[2018-08-28] MEDS: GABAPENTIN 300 MG CAP PO SCH ×3 (08:43→20:24)
[2018-08-28] MEDS: SODIUM BICARBONATE TAB 650 MG TAB PO SCH ×3 (08:43→20:24)
[2018-08-28] MEDS: NAPROXEN 250 MG TAB PO SCH ×2 (08:44→20:23)
[2018-08-28] MEDS: ACYCLOVIR 200 MG CAP PO SCH ×2 (08:45→20:23)
[2018-08-28 11:23] VITALS: BMI 25.8
[2018-08-28] MEDS: LISINOPRIL 2.5 MG TAB PO SCH (11:38)
[2018-08-28] MEDS: ATORVASTATIN 40 MG TAB PO SCH (11:38)
--- NOTE | 2018-08-28 14:25 | P.PN ---
Subjective Progress Note Date: 08/28/18 Principal diagnosis: Intractable left-sided chest discomfort, left upper lobe mass, left pleural effusion This is a very pleasant 63-year-old gentleman who follows with Dr. Coelho as his primary care physician. He has a history of coronary artery disease with previous stent placements in 2004, 2013, hyperlipidemia, hypertension, multiple myeloma with previous bone marrow transplant in 2010, annual bone marrow biopsies and follows with Dr. Reynolds for the same. He also has a more recent history of a large left upper lobe lung mass. PET scan from 07/28/2018 revealed hypermetabolic left hilar reticulated lesion measuring 4.2 x 2.8 with a max SUV of 5.6. Primary lung carcinoma within the differential. There is also new hypermetabolic focus in the left lateral mid rib with a max SUV of 2.94. There were new hypermetabolic foci in the thoracic spine with a max SUV of 3.7. There is a more prominent hypermetabolic focus at T8 with a max SUV of 11.83. There is also new hypermetabolic focus in the right upper sacrum with a max SUV of 7.12. No definitive corresponding lytic lesion was present. He had undergone bronchoscopy with transbronchial biopsies on 08/08/2018 which revealed no evidence of malignancy, he had a subsequent navigational bronchoscopy on 08/16/2018 with more specific transbronchial biopsies and transbronchial needle aspirates, washes and brushings all of which were negative for malignancy. His PET scan does show uptake with an SUV value of 5.6 in that area. The patient presented here to the emergency room early this morning with complaints of significant left-sided posterior back pain which was radiating through to his left chest anteriorly. He was quite uncomfortable. CT scan of the chest revealed a small to moderate left pleural effusion with left basilar atelectasis/consolidation. There is persistent left upper lobe mass. Small pericardial effusion. EKG revealed normal sinus rhythm with some nonspecific ST and T wave abnormalities. Troponins are negative 3. Influenza screen is negative. White count 5.1. Hemoglobin 8.8. Platelet count 59,000. Creatinine 1.09. Lactic acid 3.3. Currently 1.2. The patient was seen today in consultation on the selective care unit. He is awake and alert. He is in a significant amount of discomfort. His been treated with Dilaudid alternating with morphine. He is taking Percocets 4-5 tablets a day at home for neuropathy. Currently maintaining O2 saturations in the mid 90s on 2 L/m per nasal cannula. He's been afebrile. Hemodynamically stable. The patient is seen again today 08/23/2018 in follow-up on the selective care unit. He is much more relaxed. His pain is much better controlled. He was initiated on a DIE CAST ENGINEER pump of hydromorphone. He is maintaining good O2 saturations in the 90s on 2 L/m per nasal cannula. He's been afebrile. Hemodynamically stable. He is still dyspneic with minimal exertion. The plan is for left-sided thoracentesis today. The patient is seen again today 08/24/2018 in follow-up on the selective care unit. He is awake and alert in no acute distress. Continuing to do better each day. Pain is well controlled today. He is maintaining good O2 saturations in the 90s on 2 L/m per nasal cannula. She's afebrile. Hemodynamically stable. Blood culture reveals no growth. Sputum culture is pending. Pleural fluid analysis pending. White count 11.0. Hemoglobin 12.8. Creatinine 0.75. On 08/25/2018, the patient's comfortable. Back pain is under much better control. He is using mainly the Percocet and his not used his DIE CAST ENGINEER quite a bit over the past 24 hours. His breathing is also stable. No cough sputum production chest tightness or wheezing. The pleural fluid cytology still pending for now. The plan is to wait until the fluid cytology is back. If negative, the patient will need a fine-needle aspirate of the left upper lobe mass which seems to be suspicious for underlying bronchogenic cancer. Nevertheless, despite our suspicion, we haven't been able to confirm malignancy in this patient. The patient's hemoglobin is at 7.0 which is lower compared to yesterday. We'll monitor the counts. No signs of any bleeding at this point in time. The MRI of the spine showed compression deformity of the T7 and T8 vertebral bodies without pathologic enhancement or focal destruction to suggest metastases. This is most likely related to osteoporosis or osteomalacia. There is another focal high signal area and the T6 vertebral spine without enhancement and this could be an area of fatty marrow. The fluid chemistry is still pending to differentiate between transudate and exudate. On 08/26/2018 I'm seeing this patient for a follow-up. Doing well. Essentially the same as yesterday. No worsening shortness of breath.The chest x -ray however. This morning and showed a masslike consolidation in the lingula, unchanged and the pleural effusion has been drained for now. The patient has a negative fluid cytology. I'm a bit confused at the fluid cytology mentioned the possibility of empyema. The fluid itself is very low white cell count and I doubt the possibility of empyema. Infectious disease consultation was obtained and the patient was started on broad-spectrum antibiotics. No fever. No chills. Pain is under good control for now. The patient has no leukocytosis. With the Combivent 8.1. Hemoglobin stable at 7.6. On 08/27/2016 patient seen in follow-up on selective care unit, is awake and alert, his pain is under better control, DIE CA[employer] ENGINEER Dilaudid has been discontinued, and patient's pain control is maintained with Percocet. Patient is status post left-sided thoracentesis would removal of 1.3 L of pleural fluid, and cytology showed no cytologically malignant cells, however it showed cells consistent with questionable empyema. Patient has been started on broad-spectrum antibiotics with a combination of ceftriaxone, and Levaquin, and Zovirax. Patient has productive cough, he is bringing up thick yellow sputum. Today's lab work has been reviewed, showed white blood cell count of 9.0, hemoglobin of 7.4, BMP not done, pro-calcitonin level has been ordered, and is pending at this time. No fever or chills, patient currently on 2 L of nasal cannula with a pulse ox of 95%, lung sounds reveal reveal diminished breath sounds over left lower lobe, some scattered rhonchi in upper lobes. Yesterday chest x-ray showed a masslike consolidation in the lingula slightly worsened. And small-to- moderate left pleural effusion. Pleural fluid cultures remain negative thus far. On 08/28/2018 patient seen in follow-up on selective care unit. He is awake and alert, in no acute distress, lung sounds reveal a few scattered rhonchi. All cultures remain negative to date, remains on a combination of Rocephin and Levaquin. Urine culture was positive for Perlita. Vital signs are stable, no fever or chills, remains on 3 L of oxygen per nasal cannula his pulse ox is 94% . His pain is controlled on oral Percocet. No chest pain, no cough or congestion. We spoke to the interventional radiology today, and they felt that the fine-needle biopsy of the left upper lobe mass was not feasible related to close proximity to the great vessels, low platelet count, and inability to safely reach the mass without complications. At that point we decided to consult cardiothoracic surgery. Otherwise patient is really anxious to go home. He has been stable, no fever or chills, he is covered with broad-spectrum antibiotics, ID service is following. Objective - Vital Signs Vital signs: Vital Signs Temp 97.4 F L 08/28/18 12:00 Pulse 70 08/28/18 12:00 Resp 16 08/28/18 12:00 BP 128/66 08/28/18 12:00 Pulse Ox 94 L 08/28/18 12:00 Intake & Output 08/27/18 08/28/18 08/28/18 18:59 06:59 18:59 Intake Total 840 180 Balance 840 180 Weight 79.3 kg 79.3 kg Intake: Oral 840 180 Other: Voiding Method Toilet # Voids 1 1 1 - Exam GENERAL EXAM: Alert, pleasant, 63-year-old white male 3 L per nasal cannula comfortable in no apparent distress. HEAD: Normocephalic/atraumatic. EYES: Normal reaction of pupils, equal size. Conjunctiva pink, sclera white. NOSE: Clear with pink turbinates. THROAT: No erythema or exudates. NECK: No masses, no JVD, no thyroid enlargement, no adenopathy. CHEST: No chest wall deformity. Symmetrical expansion. LUNGS: Equal air entry with diminished breath sounds over left lower lobe, scattered rhonchi CVS: Regular rate and rhythm, normal S1 and S2, no gallops, no murmurs, no rubs ABDOMEN: Soft, nontender. No hepatosplenomegaly, normal bowel sounds, no guarding or rigidity. EXTREMITIES: No clubbing, no edema, no cyanosis, 2+ pulses and upper and lower extremities. MUSCULOSKELETAL: Muscle strength and tone normal. SPINE: No scoliosis or deformity SKIN: No rashes CENTRAL NERVOUS SYSTEM: Alert and oriented -3. No focal deficits, tone is normal in all 4 extremities. PSYCHIATRIC: Alert and oriented -3. Appropriate affect. Intact judgment and insight. - Labs CBC & Chem 7: 08/28/18 06:40 08/26/18 05:58 Labs: Abnormal Lab Results - Last 24 Hours (Table) 08/28/18 Range/Units 06:40 RBC 2.06 L (4.30-5.90) m/uL Hgb 7.2 L (13.0-17.5) gm/dL Hct 23.9 L (39.0-53.0) % MCV 115.9 H (80.0-100.0) fL MCHC 30.0 L (31.0-37.0) g/dL RDW 19.0 H (11.5-15.5) % Plt Count 39 L (150-450) k/uL Lymphocytes # 0.9 L (1.0-4.8) k/uL Microbiology - Last 24 Hours (Table) 08/22/18 01:11 Blood Culture - Final Blood No Growth after 144 hours Assessment and Plan Plan: Assessment: #1 Intractable left-sided chest discomfort suspect secondary to enlarging left upper lobe mass and new left pleural effusion with suspected bone metastasis. Patient has undergone 2 bronchoscopies with biopsies without diagnosis. PET scan did show SUV of 5.6 on the left upper lobe mass. The patient was found to have a large left-sided pleural effusion. He is post thoracentesis and fluid cytology was negative for malignancy.. Meanwhile, the MRI of the spine showed mild compression deformity of the T7 and T8 vertebral bodies. There is another high signal intensity focus at the level of T6 vertebral body without enhancement. #2 Left upper lobe mass of unclear etiology. Bronchoscopies with biopsies 2 revealed no malignancy. Suspicion remains high for an underlying malignancy. Pleural fluid cytology was negative for malignancy #3 New left pleural effusion secondary to above. Thoracentesis was performed on 08/23/2018. Fluid analysis and pathology is negative for malignancy. #4 Multiple myeloma diagnosed back in 2010 status post bone marrow transplant and receives annual bone marrow biopsies. 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 #6 Coronary artery disease with multiple stent placements in 2005 MR recently in 2013. #7 Hypertension. #8 Hyperlipidemia. #9 Chronic and ongoing tobacco dependence. #10 chronic anemia Plan: Discussed the case with the interventional radiology, and they felt that the left upper lobe mass is not excessively accessible for CT-guided fine-needle biopsy, is at great risk of bleeding, related to close proximity to the blood vessels, and a low platelet count even with a platelet infusion. We did consult Dr. Wise, for tissue diagnosis of the left upper lobe mass. Await CT surgery input. Continue broad-spectrum antibiotics, vital signs are stable. I performed a history & physical examination of the patient and discussed their management with my nurse practitioner, Ladonna Jain. I reviewed the nurse practitioner's note and agree with the documented findings and plan of care. Lung sounds are positive for diminished breath sounds at the left lower base, with scattered rhonchi. The findings and the impression was discussed with the patient. I attest to the documentation by the nurse practitioner. Time with Patient: Less than 30
--- NOTE | 2018-08-28 15:21 | P.GSCN ---
History of Present Illness Consult date: 08/28/18 Reason for Consult: Left upper lobe mass, recommendations for surgical biopsy Requesting physician: Marilynn Morejon History of present illness: This is a 63-year-old active gentleman who follows on an outpatient basis with Dr. Jp Coelho. He has a previous medical history of multiple myeloma, status post bone marrow transplant in September 2010 with annual bone marrow biopsies, coronary artery disease with myocardial infarction and cardiac stents placed in 2004 and 2013, COPD, GERD, neuropathy, recent smoking cessation with prior history of 1 pack per day 50 years, and family history of lung and bladder cancer. Apparently he has had lung work up following cold-like symptoms earlier in the year including a PET scan 07/28/18 demonstrating hypermetabolic left hilar reticular lesion 4.2 x 2.8 cm with new left lateral rib and thoracic spine hypermetabolic foci. He had a bronchoscopy with trans- bronchial biopsy on 07/29/2018 demonstrating no malignancy. Subsequently he had a navigational bronchoscopy on 08/17/2018 with biopsy, needle aspirate, washings and brushings all of which were negative for malignancy. He was waiting for the next step when he presented to [facility] on August 22 with complaints of sharp stabbing chest pain associated with chills, diaphoresis, and fever. He thought he may be having another heart attack, however he did state this pain was different than his previous heart attacks. The pain was unrelieved by aspirin and nitro given by EMS, it was relieved with IV fentanyl. Upon arrival to the emergency room his EKG demonstrated sinus rhythm with nonspecific ST changes. Chest x-ray was completed demonstrating left middle and lower lung opacity and left pleural effusion. A computed tomography scan was completed which showed small to moderate left pleural effusion as well as the known left upper lobe mass. His troponins were negative. He did have an elevated lactic acid of 3.3. He was admitted for evaluation and treatment with consultation placed to cardiology, pulmonology, and hematology/oncology. A transthoracic echocardiogram was completed which showed impaired left ventricular function with an EF 40-45%, trace AI, trace to mild MR, trace TR, and no pulmonary hypertension. On August 23 Dr. Zacarias performed a thoracentesis with removal of 1.35 L of fluid, this was also negative for malignancy and cultures were negative as well. He was scheduled to undergo fine-needle aspiration by interventional radiology today, however IR felt it was unsafe to complete due to significant thrombocytopenia with a platelet count of 39,000 as well as the close proximity of the mass to the great vessels. Dr. Wise from cardiothoracic surgery was consulted for recommendations for surgical biopsy as multiple specialties feel this mass has a cancer picture but treatment is not available without a tissue diagnosis. Review of Systems Review of systems was completed and was negative except as noted. - Constitutional Reports chills, Reports fatigue, Reports fever, Reports sweats - Cardiovascular Reports chest pain Past Medical History Past Medical History: Coronary Artery Disease (CAD), Cancer, COPD, GERD/Reflux, Myocardial Infarction ([place]), Pneumonia Additional Past Medical History / Comment(s): 2009 diagnosed with multiple myeloma-tx with chemo and in 2010 had stem cell transplant, recently found L hilar mass-has had it biopsied and awaiting results, pt states he is on HTN med and cholesterol medications since his MIs prophylactically, gastric ulcer years ago, low back pain, neuropathy bilateral legs/feet since chemo for multiple myeloma treated, sinus problems. Last Myocardial Infarction Date:: 01/09/14, FEB 2005 History of Any Multi-Drug Resistant Organisms: None Reported Past Surgical History: Heart Catheterization, Heart Catheterization With Stent Additional Past Surgical History / Comment(s): 2011 Stem cell transplant, multiple bone marrow bxs, 08/08/18 and 08/16/18 bronchoscopies/biopsies/needle aspiration, EGD/colonoscopy. Past Anesthesia/Blood Transfusion Reactions: No Reported Reaction Additional Past Anesthesia/Blood Transfusion Reaction / Comm: Pt states he received blood in past without reaction. Date of Last Stent Placement:: 01/09/14 Past Psychological History: No Psychological Hx Reported Smoking Status: Current every day smoker Past Alcohol Use History: None Reported Additional Past Alcohol Use History / Comment(s): States he quit smoking upon this admission, previously smoked a pack a day for 50 years Past Drug Use History: None Reported - Past Family History Father Family Medical History: Cancer Additional Family Medical History / Comment(s): LUNG CA Son(s) Family Medical History: Cancer Additional Family Medical History / Comment(s): BLADDER CA Mother Family Medical History: No Reported History Additional Family Medical History / Comment(s): Mother is healthy and is 86yrs old. Medications and Allergies Home Medications Medication Instructions Recorded Confirmed Type Famotidine 20 mg PO HS 01/08/14 08/22/18 History Gabapentin [Neurontin] 600 mg PO TID 01/08/14 08/22/18 History Atorvastatin [Lipitor] 40 mg PO DAILY@1200 03/24/14 08/22/18 History Acyclovir [Zovirax] 400 mg PO BID 08/06/18 08/22/18 History Cetirizine HCl [Zyrtec] 10 mg PO HS 08/06/18 08/22/18 History Lisinopril [Zestril] 2.5 mg PO DAILY@1200 08/06/18 08/22/18 History Nystatin 100,000 Unit/ml Susp 500,000 unit PO QID 08/22/18 08/22/18 History [Mycostatin Oral Susp] Prochlorperazine [Compazine] 10 mg PO Q6H PRN 08/22/18 08/22/18 History Pyridoxine HCl (Vitamin B6) 100 mg PO BID 08/22/18 08/22/18 History [Vitamin B-6] oxyCODONE-APAP 10-325MG [Percocet 1 tab PO Q4H PRN 08/22/18 08/22/18 History 10-325 mg] Allergies Allergy/AdvReac Type Severity Reaction Status Date / Time No Known Allergies Allergy Verified 08/22/18 09:38 Surgical - Exam Vital Signs Pulse Resp BP Pulse Ox 98 20 118/65 97 08/22/18 00:57 08/22/18 00:57 08/22/18 00:57 08/22/18 00:57 - General well developed, well nourished, no distress, moderate pain - Eyes PERRL, normal ocular movement - ENT no hearing loss - Neck no masses, no bruits, trachea midline - Respiratory Lungs sounds diminished bilaterally. Respirations even, nonlabored. Currently on 3 L nasal cannula with oxygen saturation 94%. No chest wall deformities. - Cardiovascular S1, S2 present. Regular rate and rhythm, sinus rhythm on telemetry. Palpable peripheral pulses bilaterally. No edema present. No calf pain or tenderness noted. - Abdomen Abdomen: soft, non tender, bowel sounds - Genitourinary Deferred - Rectum Deferred - Integumentary Skin is warm and dry with evidence of good perfusion. - Neurologic normal coordination, normal sensation - Musculoskeletal normal gait, normal posture - Psychiatric oriented to time, oriented to person, oriented to place, speech is normal, memory intact Results - Labs 08/28/18 06:40 08/26/18 05:58 Abnormal Lab Results - Last 24 Hours (Table) 08/28/18 Range/Units 06:40 RBC 2.06 L (4.30-5.90) m/uL Hgb 7.2 L (13.0-17.5) gm/dL Hct 23.9 L (39.0-53.0) % MCV 115.9 H (80.0-100.0) fL MCHC 30.0 L (31.0-37.0) g/dL RDW 19.0 H (11.5-15.5) % Plt Count 39 L (150-450) k/uL Lymphocytes # 0.9 L (1.0-4.8) k/uL Microbiology - Last 24 Hours (Table) 08/22/18 01:11 Blood Culture - Final Blood No Growth after 144 hours - Imaging Chest x-ray: report reviewed, image reviewed CT scan - chest: report reviewed, image reviewed EKG: image reviewed Assessment and Plan Assessment: 1. Left upper lobe mass suspicious for cancer with suspected bone metastasis, status post bronchoscopy with transbronchial biopsy and ERICA bronch, no malignant cells 2. History of multiple myeloma with bone marrow transplant in 2010 with annual bone marrow biopsies 3. Left pleural effusion status post thoracentesis with removal of 1.35 L fluid negative for malignancy 4. Thrombocytopenia 5. Chronic anemia 6. Recent smoking cessation, prior [id number] history 7. COPD 8. History of coronary artery disease with myocardial infarction and stent placement in 2004 and 2013 9. Family history of lung and bladder cancer Plan: The patient was seen and examined in the cardiac stepdown unit. Chart/ diagnostics were reviewed. Will discuss the case in detail with Dr. Wise and make recommendations regarding surgical biopsy. Of note, patient is high risk for surgical procedure given his thrombocytopenia, per documentation from oncology patient is cleared for fine-needle aspiration if platelet counts are 50 ,000 or higher. Continue medical therapy per primary care, pulmonology, oncology. Thank you Dr. Morejon for this consultation.
--- NOTE | 2018-08-28 16:51 | P.PN ---
Subjective Progress Note Date: 08/28/18 Principal diagnosis: back pain, history of multiple myeloma, new lung mass Pt seen in f/u, his presenting c/o of chest pain is improved, he is s/p throacentesis with improvement is respiratory status, pt is unsure how he is going to feel after stopping O2, he has been using a walker for ambulation. Objective - Vital Signs Vital signs: Vital Signs Temp 97.4 F L 08/28/18 12:00 Pulse 70 08/28/18 12:00 Resp 16 08/28/18 12:00 BP 128/66 08/28/18 12:00 Pulse Ox 94 L 08/28/18 12:00 Intake & Output 08/27/18 08/28/18 08/28/18 18:59 06:59 18:59 Intake Total 840 180 Balance 840 180 Weight 79.3 kg 79.3 kg Intake: Oral 840 180 Other: Voiding Method Toilet # Voids 1 1 1 - Constitutional General appearance: Present: average body habitus, cooperative, no acute distress - EENT Eyes: Present: anicteric sclerae, EOMI ENT: Present: hearing grossly normal, normal oropharynx - Respiratory Respiratory: bilateral: diminished - Cardiovascular Heart sounds: normal: S1, S2 - Peripheral edema leg Peripheral Edema: bilateral: None - Gastrointestinal General gastrointestinal: Present: normal bowel sounds, soft - Integumentary Integumentary: Present: pale - Neurologic Neurologic: Present: CNII-XII intact - Musculoskeletal Musculoskeletal: Present: generalized weakness, strength equal bilaterally - Psychiatric Psychiatric: Present: A&O x's 3, appropriate affect, intact judgment & insight - Labs CBC & Chem 7: 08/28/18 06:40 08/26/18 05:58 Labs: Abnormal Lab Results - Last 24 Hours (Table) 08/28/18 Range/Units 06:40 RBC 2.06 L (4.30-5.90) m/uL Hgb 7.2 L (13.0-17.5) gm/dL Hct 23.9 L (39.0-53.0) % MCV 115.9 H (80.0-100.0) fL MCHC 30.0 L (31.0-37.0) g/dL RDW 19.0 H (11.5-15.5) % Plt Count 39 L (150-450) k/uL Lymphocytes # 0.9 L (1.0-4.8) k/uL Microbiology - Last 24 Hours (Table) 08/22/18 01:11 Blood Culture - Final Blood No Growth after 144 hours - Imaging and Cardiology Chest x-ray: report reviewed Assessment and Plan (1) Acute thoracic back pain Narrative/Plan: Currently controlled Current Visit: Yes Status: Acute Priority: High Code(s): M54.6 - PAIN IN THORACIC SPINE SNOMED Code(s): 717872613 (2) Bicytopenia Narrative/Plan: Chronic, secondary to myeloma, likely exacerbated from infection. No PRBC or platelets planned for today, CBC monitoring. Current Visit: Yes Status: Chronic Priority: Medium Code(s): D75.89 - OTHER SPECIFIED DISEASES OF BLOOD AND BLOOD-FORMING ORGANS SNOMED Code(s): 680935240 (3) Mass of upper lobe of left lung Narrative/Plan: Biopsy cancelled. Orders for plt transfusion this AM with post transfusion CBC was ordered but, the orders were not followed. There was also an additional unit of platelets ordered for during procedure, that order is still active. Discussed case with Pulmonary CARPENTER MATE, Dr. Reynolds, and patient. Plan at this time is to treat empyema with f/u image then biopsy as indicated. Current Visit: Yes Status: Acute Priority: High Code(s): R91.8 - OTHER NONSPECIFIC ABNORMAL FINDING OF LUNG FIELD SNOMED Code(s): 879062160 (4) Myeloma Narrative/Plan: Pt has non-secretory myeloma. He is not currently on any treatment. Pending biopsy of lung mass Current Visit: Yes Status: Acute Priority: Medium Code(s): C90.00 - MULTIPLE MYELOMA NOT HAVING ACHIEVED REMISSION SNOMED Code(s): 542586491 Time with Patient: Greater than 30 (>60 min spent with pt, counseling and coordinating care)
[2018-08-28] MEDS: FAMOTIDINE 20 MG TAB PO SCH (20:23)
[2018-08-28] MEDS: LORATADINE 10 MG TAB PO SCH (20:23)
[2018-08-29] MEDS: oxyCODONE-APAP 10-325MG 1 EACH TAB PO PRN ×4 (00:11→13:54)
[2018-08-29] MEDS: CLOTRIMAZOLE TROCHE 10 MG TROCHE PO SCH ×4 (00:13→17:30)
--- NOTE | 2018-08-29 00:31 | PN ---
PROGRESS NOTE DATE OF SERVICE: 08/28/2018. REASON FOR FOLLOWUP: Possible empyema. INTERVAL HISTORY: The patient is currently afebrile. The patient is breathing comfortably, slightly upset as the patient could not be completed. Denies having any nausea, no vomiting. No abdominal pain. No diarrhea. PHYSICAL EXAMINATION: Blood pressure is 159/63 with a pulse of 74, temperature 98.3. He is 92% on 3 L nasal cannula. General description is an elderly male lying in bed in no distress. Respiratory system: Unlabored breathing with decreased breath sounds in the base. No wheeze. Heart S1, S2. Regular rate and rhythm. Abdomen soft, no tenderness. LABS: Hemoglobin 7.2 with white count 8.9, BUN of 29, and creatinine 1.10. fluid culture . DIAGNOSTIC IMPRESSION AND PLAN: Patient admitted to the hospital with a fever, left-sided chest pain diagnosed with left-sided pleural effusion status post thoracocentesis. Cytology was suspicious for empyema. However, the white count was not significantly elevated. The patient's fever subsequently resolved antibiotic therapy with a diagnosis of empyema not confirmed. Apparently pulmonary cleared the patient for discharge home with further workup as an outpatient. We will transition antibiotic therapy to Ceftin 500 mg twice a day with close outpatient followup. Continue supportive care. MMODL / IJN: [id number] /
--- NOTE | 2018-08-29 01:36 | PN ---
PROGRESS NOTE DATE OF SERVICE: August 28, 2018. PRESENTING COMPLAINT: Tired. INTERVAL HISTORY: Patient presented with acute compression fracture of T7, T8. Pain is well controlled. Also has a lung mass, negative for malignancy by bronchoscopy as an outpatient. Also status post left thoracentesis. Initially had a fever when he had come in. Has been on antibiotics. Lung biopsy could not be done today as platelets were running low. REVIEW OF SYSTEMS: Done for constitutional, cardiovascular, GI, pulmonary and relevant findings as above. CURRENT MEDICATIONS: Reviewed that include IV ceftriaxone, Levaquin. PHYSICAL EXAMINATION: VITAL SIGNS: Temperature 97.4, pulse 70, respirations 16, blood pressure 120/66, pulse ox 94 percent on 3 L. GENERAL APPEARANCE: Sitting up, awake. Tired. EYES: Pupils are equal. Conjunctivae normal. NECK: JVD not raised. Mass not palpable. RESPIRATORY: Effort increased. LUNGS: Diminished breath sounds. CARDIOVASCULAR: 1st and 2nd sounds normal. No edema. ABDOMEN: Soft, nontender. Liver and spleen not palpable. PSYCHIATRY: Alert and oriented x3. Mood and affect normal. INVESTIGATIONS: White count 8.9, hemoglobin 7.2. ASSESSMENT: 1. Acute compression fracture of T7, T8 with radiculopathy, pain well controlled, exact cause unknown. 2. Coronary artery disease. 3. Chronic obstructive pulmonary disease in a current smoker. 4. Gastroesophageal reflux disease. 5. Hyperlipidemia. 6. Essential hypertension. 7. Left lung mass, negative for malignancy per biopsy during bronch from biopsy from bronchoscopy. 8. Multiple myeloma history of. 9. Peripheral neuropathy from chemotherapy. 10.Bicytopenia. 11.Metabolic and lactic acidosis. 12.Left pleural effusion status post thoracentesis. PLAN: Earlier today, interventional Radiology could not do the biopsy because platelets were running low. Dr. Wise was consulted. At this point he will not do any intervention. The patient did drop his pulse ox on room air. Hence, home oxygen is being arranged and PT is already on the case. Plan is to let the patient go home on oral antibiotics tomorrow. I discussed with Dr. Cole from ID, patient will be switched to Ceftin and then he will see Dr. Zacarias as an outpatient and biopsy will be coordinated after the course of antibiotic is done. Total time spent today was about 50 minutes with over 35 minutes of discussion. MMODL / IJN: [id number] /
[2018-08-29 07:29] LABS: Anisocytosis Slight; HCT 22.2 % (39.0-53.0); Hypochromasia Marked; MCH 34.5 pg (25.0-35.0); MCHC 30.7 g/dL (31.0-37.0); MCV 112.5 fL (80.0-100.0); Macrocytosis Marked; Mean Platelet Volume 9.6; RBC 1.97 m/uL (4.30-5.90); RDW 19.2 % (11.5-15.5); WBC 8.9 k/uL (3.8-10.6)
[2018-08-29 07:36] LABS: HGB 6.8 gm/dL (13.0-17.5); Platelet Count 30 k/uL (150-450)
[2018-08-29] MEDS: ACYCLOVIR 200 MG CAP PO SCH (08:39)
[2018-08-29] MEDS: GABAPENTIN 300 MG CAP PO SCH ×2 (08:39→17:30)
[2018-08-29] MEDS: LEVOFLOXACIN 750 MG TAB PO SCH (08:39)
[2018-08-29] MEDS: NAPROXEN 250 MG TAB PO SCH (08:42)
[2018-08-29] MEDS: SODIUM BICARBONATE TAB 650 MG TAB PO SCH ×2 (08:43→17:30)
[2018-08-29 09:18] LABS: Band Neutrophils % 1 %; Eosinophils # (M) 0.09 k/uL (0-0.7); Lymphocytes # (M) 0.89 k/uL (1.0-4.8); Monocytes # (M) 0.71 k/uL (0-1.0); Neutrophils % (M) 80 %; Nucleated Red Blood Cells 0 /100 WBC (0-0); Total Cells Counted 100
[2018-08-29 09:20] LABS: Target Cells Present
[2018-08-29] MEDS: LIDOCAINE 5% PATCH TOPICAL SCH (10:41)
[2018-08-29] MEDS: ATORVASTATIN 40 MG TAB PO SCH (13:53)
[2018-08-29] MEDS: LISINOPRIL 2.5 MG TAB PO SCH (13:54)
--- NOTE | 2018-08-29 13:56 | P.PN ---
Subjective Progress Note Date: 08/29/18 Principal diagnosis: Intractable left-sided chest discomfort, left upper lobe mass, left pleural effusion This is a very pleasant 63-year-old gentleman who follows with Dr. Coelho as his primary care physician. He has a history of coronary artery disease with previous stent placements in 2004, 2013, hyperlipidemia, hypertension, multiple myeloma with previous bone marrow transplant in 2010, annual bone marrow biopsies and follows with Dr. Reynolds for the same. He also has a more recent history of a large left upper lobe lung mass. PET scan from 07/28/2018 revealed hypermetabolic left hilar reticulated lesion measuring 4.2 x 2.8 with a max SUV of 5.6. Primary lung carcinoma within the differential. There is also new hypermetabolic focus in the left lateral mid rib with a max SUV of 2.94. There were new hypermetabolic foci in the thoracic spine with a max SUV of 3.7. There is a more prominent hypermetabolic focus at T8 with a max SUV of 11.83. There is also new hypermetabolic focus in the right upper sacrum with a max SUV of 7.12. No definitive corresponding lytic lesion was present. He had undergone bronchoscopy with transbronchial biopsies on 08/08/2018 which revealed no evidence of malignancy, he had a subsequent navigational bronchoscopy on 019 with more specific transbronchial biopsies and transbronchial needle aspirates, washes and brushings all of which were negative for malignancy. His PET scan does show uptake with an SUV value of 5.6 in that area. The patient presented here to the emergency room early this morning with complaints of significant left-sided posterior back pain which was radiating through to his left chest anteriorly. He was quite uncomfortable. CT scan of the chest revealed a small to moderate left pleural effusion with left basilar atelectasis/consolidation. There is persistent left upper lobe mass. Small pericardial effusion. EKG revealed normal sinus rhythm with some nonspecific ST and T wave abnormalities. Troponins are negative 3. Influenza screen is negative. White count 5.1. Hemoglobin 8.8. Platelet count 59,000. Creatinine 1.09. Lactic acid 3.3. Currently 1.2. The patient was seen today in consultation on the selective care unit. He is awake and alert. He is in a significant amount of discomfort. His been treated with Dilaudid alternating with morphine. He is taking Percocets 4-5 tablets a day at home for neuropathy. Currently maintaining O2 saturations in the mid 90s on 2 L/m per nasal cannula. He's been afebrile. Hemodynamically stable. The patient is seen again today 08/23/2018 in follow-up on the selective care unit. He is much more relaxed. His pain is much better controlled. He was initiated on a [employer] pump of hydromorphone. He is maintaining good O2 saturations in the 90s on 2 L/m per nasal cannula. He's been afebrile. Hemodynamically stable. He is still dyspneic with minimal exertion. The plan is for left-sided thoracentesis today. The patient is seen again today 08/24/2018 in follow-up on the selective care unit. He is awake and alert in no acute distress. Continuing to do better each day. Pain is well controlled today. He is maintaining good O2 saturations in the 90s on 2 L/m per nasal cannula. She's afebrile. Hemodynamically stable. Blood culture reveals no growth. Sputum culture is pending. Pleural fluid analysis pending. White count 11.0. Hemoglobin 12.8. Creatinine 0.75. On 08/25/2018, the patient's comfortable. Back pain is under much better control. He is using mainly the Percocet and his not used his [employer] quite a bit over the past 24 hours. His breathing is also stable. No cough sputum production chest tightness or wheezing. The pleural fluid cytology still pending for now. The plan is to wait until the fluid cytology is back. If negative, the patient will need a fine-needle aspirate of the left upper lobe mass which seems to be suspicious for underlying bronchogenic cancer. Nevertheless, despite our suspicion, we haven't been able to confirm malignancy in this patient. The patient's hemoglobin is at 7.0 which is lower compared to yesterday. We'll monitor the counts. No signs of any bleeding at this point in time. The MRI of the spine showed compression deformity of the T7 and T8 vertebral bodies without pathologic enhancement or focal destruction to suggest metastases. This is most likely related to osteoporosis or osteomalacia. There is another focal high signal area and the T6 vertebral spine without enhancement and this could be an area of fatty marrow. The fluid chemistry is still pending to differentiate between transudate and exudate. On 08/26/2018 I'm seeing this patient for a follow-up. Doing well. Essentially the same as yesterday. No worsening shortness of breath.The chest x-ray however. This morning and showed a masslike consolidation in the lingula, unchanged and the pleural effusion has been drained for now. The patient has a negative fluid cytology. I'm a bit confused at the fluid cytology mentioned the possibility of empyema. The fluid itself is very low white cell count and I doubt the possibility of empyema. Infectious disease consultation was obtained and the patient was started on broad-spectrum antibiotics. No fever. No chill s. Pain is under good control for now. The patient has no leukocytosis. With the Combivent 8.1. Hemoglobin stable at 7.6. On 08/27/2016 patient seen in follow-up on selective care unit, is awake and alert, his pain is under better control, [employer] Dilaudid has been discontinued, and patient's pain control is maintained with Percocet. Patient is status post left-sided thoracentesis would removal of 1.3 L of pleural fluid, and cytology showed no cytologically malignant cells, however it showed cells consistent with questionable empyema. Patient has been started on broad-spectrum antibiotics w ith a combination of ceftriaxone, and Levaquin, and Zovirax. Patient has productive cough, he is bringing up thick yellow sputum. Today's lab work has been reviewed, showed white blood cell count of 9.0, hemoglobin of 7.4, BMP not done, pro-calcitonin level has been ordered, and is pending at this time. No fever or chills, patient currently on 2 L of nasal cannula with a pulse ox of 95%, lung sounds reveal reveal diminished breath sounds over left lower lobe, some scattered rhonchi in upper lobes. Yesterday chest x-ray showed a masslike consolidation in the lingula slightly worsened. And [id number] left pleural effusion. Pleural fluid cultures remain negative thus far. On 08/28/2018 patient seen in follow-up on selective care unit. He is awake and alert, in no acute distress, lung sounds reveal a few scattered rhonchi. All cultures remain negative to date, remains on a combination of Rocephin and Levaquin. Urine culture was positive for Perlita. Vital signs are stable, no fever or chills, remains on 3 L of oxygen per nasal cannula his pulse ox is 94%. His pain is controlled on oral Percocet. No chest pain, no cough or congestion. We spoke to the interventional radiology today, and they felt that the fine-needle biopsy of the left upper lobe mass was not feasible related to close proximity to the great vessels, low platelet count, and inability to safely reach the mass without complications. At that point we decided to consult cardiothoracic surgery. Otherwise patient is really anxious to go home. He has been stable, no fever or chills, he is covered with broad-spectrum antibiotics, ID service is following. On 08/29/2018 patient seen in follow-up on selective care unit, he is resting comfortably in bed, in no acute distress, no fever or chills, he is 91-94% on 3 L per nasal cannula, no acute events overnight, patient was seen by CT surgery, no surgical intervention is planned at this time, and the recommendation was to send the patient home on outpatient course of oral antibiotics, and follow up on outpatient basis. All cultures remain negative, urine culture with Perlita only. His pain is well controlled on oral Percocet, lung sounds are diminished at the left base, limited crackles on the right. Objective - Vital Signs Vital signs: Vital Signs Temp 97.7 F 08/29/18 13:40 Pulse 70 08/29/18 13:40 Resp 18 08/29/18 13:40 BP 133/74 08/29/18 13:40 Pulse Ox 94 L 08/29/18 13:40 Intake & Output 08/28/18 08/29/18 08/29/18 18:59 06:59 18:59 Intake Total 420 300 200 Balance 420 300 200 Weight 79.3 kg 79.8 kg Intake: Oral 420 300 200 Blood Product 0 Rc As-1 Unit 0 [id number] Other: Voiding Method Toilet # Voids 1 1 - Exam GENERAL EXAM: Alert, pleasant, 63-year-old white male 3 L per nasal cannula comfortable in no apparent distress. HEAD: Normocephalic/atraumatic. EYES: Normal reaction of pupils, equal size. Conjunctiva pink, sclera white. NOSE: Clear with pink turbinates. THROAT: No erythema or exudates. NECK: No masses, no JVD, no thyroid enlargement, no adenopathy. CHEST: No chest wall deformity. Symmetrical expansion. LUNGS: Equal air entry with diminished breath sounds over left lower lobe, scattered rhonchi CVS: Regular rate and rhythm, normal S1 and S2, no gallops, no murmurs, no rubs ABDOMEN: Soft, nontender. No hepatosplenomegaly, normal bowel sounds, no guarding or rigidity. EXTREMITIES: No clubbing, no edema, no cyanosis, 2+ pulses and upper and lower extremities. MUSCULOSKELETAL: Muscle strength and tone normal. SPINE: No scoliosis or deformity SKIN: No rashes CENTRAL NERVOUS SYSTEM: Alert and oriented -3. No focal deficits, tone is normal in all 4 extremities. PSYCHIATRIC: Alert and oriented -3. Appropriate affect. Intact judgment and insight. - Labs CBC & Chem 7: 08/29/18 06:39 08/26/18 05:58 Labs: Abnormal Lab Results - Last 24 Hours (Table) 08/27/18 08/29/18 Range/Units 14:48 06:39 RBC 1.97 L (4.30-5.90) m/uL Hgb 6.8 L* (13.0-17.5) gm/dL Hct 22.2 L (39.0-53.0) % MCV 112.5 H (80.0-100.0) fL MCHC 30.7 L (31.0-37.0) g/dL RDW 19.2 H (11.5-15.5) % Plt Count 30 L (150-450) k/uL Lymphocytes # (Manual) 0.89 L (1.0-4.8) k/uL Crossmatch See Detail Assessment and Plan Plan: Assessment: #1 Intractable left-sided chest discomfort suspect secondary to enlarging left upper lobe mass and new left pleural effusion with suspected bone metastasis. Patient has undergone 2 bronchoscopies with biopsies without diagnosis. PET scan did show SUV of 5.6 on the left upper lobe mass. The patient was found to have a large left-sided pleural effusion. He is post thoracentesis and fluid cytology was negative for malignancy.. Meanwhile, the MRI of the spine showed mild compression deformity of the T7 and T8 vertebral bodies. There is another high signal intensity focus at the level of T6 vertebral body without enhancement. #2 Left upper lobe mass of unclear etiology. Bronchoscopies with biopsies 2 revealed no malignancy. Suspicion remains high for an underlying malignancy. Pleural fluid cytology was negative for malignancy #3 New left pleural effusion secondary to above. Thoracentesis was performed on 08/23/2018. Fluid analysis and pathology is negative for malignancy. #4 Multiple myeloma diagnosed back in 2011 status post bone marrow transplant and receives annual bone marrow biopsies. 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 #6 Coronary artery disease with multiple stent placements in 2004 MR recently in 2013. #7 Hypertension. #8 Hyperlipidemia. #9 Chronic and ongoing tobacco dependence. #10 chronic anemia Plan: Patient is stable for discharge home today on outpatient course of oral antibiotics, will need follow-up with Dr. Zacarias in 7-10 days, no surgical intervention is planned at this time. Cultures remain negative thus far. No fever or chills, his back pain is under good control on oral Percocet. He is going home on oral Ceftin per ID service recommendation. I performed a history & physical examination of the patient and discussed their management with my nurse practitioner, Ladonna Jain. I reviewed the nurse practitioner's note and agree with the documented findings and plan of care. Lung sounds are positive for diminished breath sounds at the left lower base, with scattered rhonchi. The findings and the impression was discussed with the patient. I attest to the documentation by the nurse practitioner. Time with Patient: Less than 30
[2018-08-29] MEDS ORDERED: ONDANSETRON 4 MG/2 ML VIAL IVP STA (14:00)
[2018-08-29] MEDS ORDERED: ONDANSETRON 8 MG in SODIUM CHLORIDE 0.9% 50 ML IVPB STA (14:05)
[2018-08-29] MEDS ORDERED: ONDANSETRON 4 MG/2 ML VIAL ONE (14:29)
--- NOTE | 2018-08-29 14:38 | PN ---
PROGRESS NOTE DATE OF SERVICE: 08/29/2018 REASON FOR FOLLOWUP: Possible left-sided empyema. INTERVAL HISTORY: The patient is currently afebrile. The patient has been breathing comfortably. Patient denies having any chest pain or shortness of breath, no new cough. No abdominal pain or any diarrhea. PHYSICAL EXAMINATION: Blood pressure 120/71 with a pulse of 78, temperature 97.6. He is 94% on room air. General description is an elderly male, up in the bed in no distress. RESPIRATORY SYSTEM: Unlabored breathing with decreased breath sounds at the bases, no wheeze. HEART: S1, S2. Regular rate and rhythm. ABDOMEN: Soft, no tenderness. LABS: Hemoglobin 6.1, white count of 8.9. Sputum with Perlita albicans, blood flow culture so far negative. DIAGNOSTIC IMPRESSION AND PLAN: Patient admitted to the hospital with left lower chest pain in this patient who did have a thoracocentesis, white count was not significantly elevated. His pathology came back positive for empyema, hence, patient is started on Rocephin and Levaquin. Patient did have a fever on admission that has resolved. May give a 10 days course of oral Ceftin 500 mg twice a day and a close outpatient followup. If any worsening of symptoms, the patient may need more aggressive support including possible repeat thoracocentesis, VATS procedure and IV antibiotic therapy. Continue supportive care. MMODL / IJN: [id number] /
[2018-08-29 16:23] VITALS: RESP 16; TEMP 97.9
[2018-08-29 17:38] VITALS: BP 140/70; PULSE 70
--- NOTE | 2018-08-29 23:11 | P.PN ---
Subjective Progress Note Date: 08/29/18 Principal diagnosis: back pain, history of multiple myeloma, new lung mass Pt seen in f/u, he is getting a unit of blood, vomiting, no temp, VS stable Objective - Vital Signs Vital signs: Vital Signs Temp 97.9 F 08/29/18 17:37 Pulse 70 08/29/18 17:37 Resp 16 08/29/18 17:37 BP 140/70 08/29/18 17:37 Pulse Ox 95 08/29/18 16:00 Intake & Output 08/29/18 08/29/18 08/30/18 06:59 18:59 06:59 Intake Total 300 732 Output Total 800 Balance 300 -68 Weight 79.8 kg Intake: Oral 300 422 Blood Product 310 Rc As-1 Unit 310 [id number] Output: Urine 800 Other: Voiding Method Toilet # Voids 1 - Constitutional General appearance: Present: average body habitus, mild distress, thin - EENT Eyes: Present: anicteric sclerae, EOMI - Respiratory Respiratory: bilateral: CTA - Cardiovascular Heart sounds: normal: S1, S2 - Peripheral edema leg Peripheral Edema: bilateral: None - Gastrointestinal General gastrointestinal: Present: soft - Integumentary Integumentary: Present: pale - Neurologic Neurologic: Present: CNII-XII intact - Musculoskeletal Musculoskeletal: Present: generalized weakness - Psychiatric Psychiatric: Present: A&O x's 3, appropriate affect, intact judgment & insight - Labs CBC & Chem 7: 08/29/18 06:39 08/26/18 05:58 Labs: Abnormal Lab Results - Last 24 Hours (Table) 08/27/18 08/29/18 Range/Units 14:48 06:39 RBC 1.97 L (4.30-5.90) m/uL Hgb 6.8 L* (13.0-17.5) gm/dL Hct 22.2 L (39.0-53.0) % MCV 112.5 H (80.0-100.0) fL MCHC 30.7 L (31.0-37.0) g/dL RDW 19.2 H (11.5-15.5) % Plt Count 30 L (150-450) k/uL Lymphocytes # (Manual) 0.89 L (1.0-4.8) k/uL Crossmatch See Detail Assessment and Plan (1) Acute thoracic back pain Narrative/Plan: Currently controlled Status: Acute Priority: High Code(s): M54.6 - PAIN IN THORACIC SPINE SNOMED Code(s): 276404375 (2) Bicytopenia Narrative/Plan: 1 unit PRBCs today Plt stable Status: Chronic Priority: Medium Code(s): D75.89 - OTHER SPECIFIED DISEASES OF BLOOD AND BLOOD-FORMING ORGANS SNOMED Code(s): 331992861 (3) Mass of upper lobe of left lung Narrative/Plan: Plan to complete treatment of infection with f/u image then biopsy as indicated. Status: Acute Priority: High Code(s): R91.8 - OTHER NONSPECIFIC ABNORMAL FINDING OF LUNG FIELD SNOMED Code(s): 713608587 (4) Myeloma Narrative/Plan: Pt has non-secretory myeloma. He is not currently on any treatment. Pending biopsy of lung mass Status: Chronic Priority: Medium Code(s): C90.00 - MULTIPLE MYELOMA NOT HAVING ACHIEVED REMISSION SNOMED Code(s): 421549473
--- NOTE | 2018-08-30 06:57 | DS ---
DISCHARGE SUMMARY DATE OF ADMISSION: 08/22/2018 DATE OF DISCHARGE: 08/29/2018 FINAL DIAGNOSES: 1. Acute compression fracture of T7-T8 with radiculopathy, exact cause of the fracture undetermined. 2. Coronary artery disease. 3. Chronic obstructive pulmonary disease in a current smoker. 4. Gastroesophageal reflux disease. 5. Hyperlipidemia. 6. Essential hypertension. 7. Left lung mass, negative for malignancy per biopsy during bronchoscopy. Further workup to be done. 8. Multiple myeloma history of. 9. Peripheral neuropathy from chemotherapy. 10.Bicytopenia. 11.Metabolic and lactic acidosis. 12.Left pleural effusion, cause unclear, status post thoracentesis. CONSULTATIONS: Dr. Zacarias and colleagues from Pulmonary; Dr. Wise from Cardiothoracic Surgery; Dr. Reynolds and colleagues from Oncology; Dr. Lewis from Orthopedic Spine; Dr. Cole from Infectious Disease. HOSPITAL COURSE: This patient presented with severe upper acute back pain did show to be T7, T8 compression fracture. The patient did have a thoracic spine MRI. The patient also has got a left lung mass that had recently had multiple biopsies done by Dr. Zacarias. All came back negative for malignancy. Patient also has a left pleural effusion. Initially patient had some fever, was given antibiotics. Exact cause of fever still undetermined. Patient's pulse ox was running low hence patient being prescribed oxygen for home. Pain is well controlled. Because platelets are running low, patient's repeat lung mass biopsy could not be done. I spoke with the patient's son at length. The patient is given a unit of blood as hemoglobin this morning was 6.8. Also spoke to Dr. Morejon and also updated Dr. Zacarias patient's primary setter automatic spinning lathe about the plan. Discussion and discharge planning more than 35 minutes. PHYSICAL EXAMINATION: On examination, temperature is 97.9, pulse 69, respiration 16, blood pressure 133/76, pulse ox was 95% on 3 L. LUNGS: Decreased breath sounds. PSYCH: AO x3. INVESTIGATIONS: Hemoglobin was 6.9 before transfusion, platelets 30. Platelets were 59 on admission. Patient's left pleural effusion that was tapped did not grow any organisms. DISCHARGE MEDICATIONS: 1. Neurontin 600 mg p.o. t.i.d. 2. Lipitor 40 mg p.o. daily. 3. Zovirax 400 mg p.o. b.i.d. 4. Zyrtec 10 mg q.h.s. 5. Zestril 2.5 p.o. daily at noon. 6. Mycostatin p.o. q.i.d. 7. Compazine 10 mg q.6 p.r.n. 8. Vitamin B6, 100 mg p.o. b.i.d. 9. Percocet 10 one tablet q.4 p.r.n. 10.Baclofen 5 mg p.o. q.i.d. p.r.n. 11.Ceftin 500 mg p.o. b.i.d., 14. 12.Pepcid 20 mg b.i.d. 13.Naproxen 250 mg b.i.d., 20 tablets. 14.Zofran 4 mg q.8 p.r.n. 15.Sodium bicarbonate 650 mg p.o. t.i.d. Home oxygen 3 to 4 L. Follow up with Dr. Coelho on 09/04/2018. Follow up with Andrez Andrews in 2 weeks; Dr. Zacarias on 08/31/2018; Dr. Charlie Reynolds on 09/03/2018. CBC to be done on 08/31/2018. MMODL / IJN: [id number] /
== END 2018-08-29 18:50 | disposition home or self-care (01) | DRG 542 ==
LOC: EC 00:56 → 3SCARD 04:46
PROVIDERS: ADMIT Hospitalist; ATTEND Hospitalist
PROC: 0W9B30Z Drainage of Left Pleural Cavity with Drainage Device, Percutaneous Approach (ICD-10-PCS; principal; 2018-08-23)
DX: M48.54XA Collapsed vertebra, not elsewhere classified, thoracic region, initial encounter for fracture (principal); J18.9 Pneumonia, unspecified organism; J86.9 Pyothorax without fistula; Z94.84 Stem cells transplant status; E87.2 Acidosis; C90.00 Multiple myeloma not having achieved remission; J91.8 Pleural effusion in other conditions classified elsewhere; J44.0 Chronic obstructive pulmonary disease with (acute) lower respiratory infection; I31.3 Pericardial effusion (noninflammatory); J98.11 Atelectasis; I48.91 Unspecified atrial fibrillation; G62.0 Drug-induced polyneuropathy; D69.59 Other secondary thrombocytopenia; R91.8 Other nonspecific abnormal finding of lung field; D53.9 Nutritional anemia, unspecified; T45.1X5A Adverse effect of antineoplastic and immunosuppressive drugs, initial encounter; I25.2 Old myocardial infarction; M54.14 Radiculopathy, thoracic region; I10 Essential (primary) hypertension; I25.10 Atherosclerotic heart disease of native coronary artery without angina pectoris; K21.9 Gastro-esophageal reflux disease without esophagitis; E78.5 Hyperlipidemia, unspecified; F17.210 Nicotine dependence, cigarettes, uncomplicated; Z71.6 Tobacco abuse counseling; Z79.899 Other long term (current) drug therapy; Z92.21 Personal history of antineoplastic chemotherapy; Z87.11 Personal history of peptic ulcer disease; Z95.5 Presence of coronary angioplasty implant and graft; Z87.01 Personal history of pneumonia (recurrent); Z80.1 Family history of malignant neoplasm of trachea, bronchus and lung; Z80.52 Family history of malignant neoplasm of bladder
CPT/HCPCS: 36415; 71045; 71046; 71260; 72157; 80048; 80053; 80061; 83605; 83735; 83880; 83883; 84145; 84165; 84484; 85025; 85027; 85610; 85730; 86140; 86850; 86900; 86901; 86920; 87040; 87070; 87205; 87502; 88108; 88305; 89050; 93005; 93306; 94760; 96361; 96365; 96375; 96376; 99285

== ENCOUNTER 2018-08-31 10:04 | Emergency (ER) | payer MEDICARE, BC ==
[2018-08-31] MEDS ORDERED: methylPREDNISolone SOD SUCCI 125 MG/2 ML VIAL IV STA (10:24)
[2018-08-31] MEDS ORDERED: IPRATROPIUM-ALBUTEROL 3 ML NEB INHALATION STA (10:24)
[2018-08-31] MEDS ORDERED: SODIUM CHLORIDE 0.9% 1,000 ML IV STA (10:24)
--- NOTE | 2018-08-31 10:35 | ED ---
SOB HPI - General Chief Complaint: Shortness of Breath Stated Complaint: lung infection/SOB Time Seen by Provider: 08/31/18 10:16 Source: patient, RN notes reviewed Mode of arrival: ambulatory Limitations: no limitations - History of Present Illness Initial Comments: This is a 63-year-old male with a long history of smoking a recent diagnosis of left lung mass who presents today with complaints of shortness of breath exertional dyspnea which is beginning progressively worse over last several days. He states he was discharged 2 days ago and placed on antibiotics for a presumed infection he states he has exertional dyspnea and orthopnea he's got a cough with yellow and sometimes red tinged phlegm. No overt chest pain. No other complaints at this time no other modifying factors MD Complaint: shortness of breath, cough - Related Data Home Medications Medication Instructions Recorded Confirmed Gabapentin [Neurontin] 600 mg PO TID 01/08/14 08/31/18 Atorvastatin [Lipitor] 40 mg PO DAILY@1200 03/24/14 08/31/18 Acyclovir [Zovirax] 400 mg PO BID 08/06/18 08/31/18 Cetirizine HCl [Zyrtec] 10 mg PO HS 08/06/18 08/31/18 Lisinopril [Zestril] 2.5 mg PO DAILY@1200 08/06/18 08/31/18 Nystatin 100,000 Unit/ml Susp 500,000 unit PO QID 08/22/18 08/31/18 [Mycostatin Oral Susp] Prochlorperazine [Compazine] 10 mg PO Q6H PRN 08/22/18 08/31/18 Pyridoxine HCl (Vitamin B6) 100 mg PO BID 08/22/18 08/31/18 [Vitamin B-6] oxyCODONE-APAP 10-325MG [Percocet 1 tab PO Q4H PRN 08/22/18 08/31/18 10-325 mg] Previous Rx's Medication Instructions Recorded Baclofen [Lioresal] 5 mg PO QID PRN #30 tab 08/29/18 Cefuroxime Axetil [Ceftin] 500 mg PO BID #14 tab 08/29/18 Famotidine 20 mg PO BID #0 08/29/18 Naproxen [Naprosyn] 250 mg PO BID #20 tab 03/06/19 Ondansetron HCl [Zofran] 4 mg PO Q8H #20 tablet 08/29/18 Sodium Bicarbonate Tab 650 mg PO TID #30 tab 08/29/18 Allergies Allergy/AdvReac Type Severity Reaction Status Date / Time No Known Allergies Allergy Verified 08/31/18 10:25 Review of Systems ROS Statement: Those systems with pertinent positive or pertinent negative responses have been documented in the HPI. ROS Other: All systems not noted in ROS Statement are negative. Past Medical History Past Medical History: Coronary Artery Disease (CAD), Cancer, COPD, GERD/Reflux, Myocardial Infarction (LA), Pneumonia Additional Past Medical History / Comment(s): 2009 diagnosed with multiple myeloma-tx with chemo and in 2010 had stem cell transplant, recently found L hilar mass-has had it biopsied and awaiting results, pt states he is on HTN med and cholesterol medications since his MIs prophylactically, gastric ulcer years ago, low back pain, neuropathy bilateral legs/feet since chemo for multiple myeloma treated, sinus problems. Last Myocardial Infarction Date:: 01/09/14, FEB 2005 History of Any Multi-Drug Resistant Organisms: None Reported Past Surgical History: Heart Catheterization, Heart Catheterization With Stent Additional Past Surgical History / Comment(s): 2010 Stem cell transplant, multiple bone marrow bxs, 08/08/18 and 08/16/18 bronchoscopies/biopsies/needle aspiration, EGD/colonoscopy. Past Anesthesia/Blood Transfusion Reactions: No Reported Reaction Additional Past Anesthesia/Blood Transfusion Reaction / Comment(s): Pt states he received blood in past without reaction. Date of Last Stent Placement:: 01/09/14 Past Psychological History: Anxiety Smoking Status: Former smoker Past Alcohol Use History: None Reported Past Drug Use History: None Reported - Past Family History Father Family Medical History: Cancer Additional Family Medical History / Comment(s): LUNG CA Son(s) Family Medical History: Cancer Additional Family Medical History / Comment(s): BLADDER CA Mother Family Medical History: No Reported History Additional Family Medical History / Comment(s): Mother is healthy and is 86yrs old. General Exam - General Exam Comments Initial Comments: This is a well-developed well-nourished oriented 3 male Limitations: no limitations General appearance: alert, anxious Head exam: Present: atraumatic, normocephalic, normal inspection Eye exam: Present: normal appearance, PERRL, EOMI. Absent: scleral icterus, conjunctival injection, periorbital swelling ENT exam: Present: normal exam, mucous membranes moist Neck exam: Present: normal inspection. Absent: tenderness, meningismus, lymphadenopathy Respiratory exam: Present: wheezes, decreased breath sounds. Absent: respiratory distress, rales, rhonchi, stridor Cardiovascular Exam: Present: regular rate, normal rhythm, normal heart sounds. Absent: systolic murmur, diastolic murmur, rubs, gallop, clicks GI/Abdominal exam: Present: soft, normal bowel sounds. Absent: distended, tenderness, guarding, rebound, rigid Extremities exam: Present: normal inspection, full ROM, normal capillary refill. Absent: tenderness, pedal edema, joint swelling, calf tenderness Back exam: Present: normal inspection Neurological exam: Present: alert, oriented X3, CN II-XII intact Psychiatric exam: Present: normal affect, normal mood Skin exam: Present: warm, dry, intact, normal color. Absent: rash Course Vital Signs 08/31/18 08/31/18 08/31/18 10:07 10:30 10:31 Temperature 98.1 F Pulse Rate 84 66 Respiratory 18 18 Rate Blood Pressure 113/82 O2 Sat by Pulse 97 Oximetry 08/31/18 08/31/18 08/31/18 10:32 10:41 11:23 Temperature Pulse Rate 64 68 65 Respiratory 18 16 Rate Blood Pressure 128/87 127/84 O2 Sat by Pulse 99 95 Oximetry 08/31/18 08/31/18 08/31/18 12:00 13:00 14:00 Temperature Pulse Rate 62 67 62 Respiratory 16 20 20 Rate Blood Pressure 120/86 133/71 140/72 O2 Sat by Pulse 95 95 96 Oximetry 08/31/18 08/31/18 08/31/18 14:31 15:00 16:00 Temperature Pulse Rate 62 62 60 Respiratory 16 18 18 Rate Blood Pressure 144/85 136/65 O2 Sat by Pulse 97 97 95 Oximetry - Reevaluation(s) Reevaluation #1: 08/31/18 16:29 Did discuss the findings initially with the patient and one of his sons later with Dr. Salcedo the patient was originally going to be admitted however after discussion with Dr. Zacarias the patient did receive a CAT scan of the chest. It does show evidence of increasing loculation increasing by within the left pleural effusion as well as increasing multifocal left-sided atelectasis. Reevaluation #2: 08/31/18 16:30 Dr. Salcedo did come the emergency department to talk to the patient regarding the findings it was decided the patient will be transferred to [facility] for higher level of care and further evaluation and treatment. The patient was started on meropenem in emergency department. Reevaluation #3: 08/31/18 16:30 I did discuss this with the patient's daughter and another family member that later arrived. Reevaluation #4: 08/31/18 17:05 I did discuss the case with Dr. Mccain at [facility] in [place] he is agreed to accept the patient in transfer. Medical Decision Making - Medical Decision Making I did discuss findings with the patient and multiple family members as well as with Dr. Salcedo patient will be transferred to [facility] in [place]. Patient presented today with complaints of exertional dyspnea getting worse over last several days this is since discharge from the hospital after having a thoracentesis for fluid collection suspect a left lung mass. Apparently the initial cultures revealed no evidence of infection however some infection was suspected and the patient was discharged on oral medication. Patient presents with no fevers chills or sweats. Repeat CT did show evidence of increasing loculation and volume within the left pleural effusion as well as increasing multifocal left-sided atelectasis. Due to this possibility patient will be started on meropenem in this emergency department. This is at the suggestion of Dr. Salcedo. Patient is hemodynamically stable for transfer. - Lab Data Result diagrams: 08/31/18 10:26 08/31/18 10:26 Lab Results 08/31/18 08/31/18 08/31/18 Range/Units 10:26 10:26 10:26 WBC 10.3 (3.8-10.6) k/uL RBC 2.61 L (4.30-5.90) m/uL Hgb 8.8 L D (13.0-17.5) gm/dL Hct 28.0 L (39.0-53.0) % MCV 107.3 H D (80.0-100.0) fL MCH 33.8 (25.0-35.0) pg MCHC 31.5 (31.0-37.0) g/dL RDW 19.8 H (11.5-15.5) % Plt Count 30 L (150-450) k/uL Neutrophils % 85 % Lymphocytes % 9 % Monocytes % 3 % Eosinophils % 0 % Basophils % 0 % Neutrophils # 8.8 H (1.3-7.7) k/uL Lymphocytes # 0.9 L (1.0-4.8) k/uL Monocytes # 0.3 (0-1.0) k/uL Eosinophils # 0.0 (0-0.7) k/uL Basophils # 0.0 (0-0.2) k/uL Manual Slide Review Performed Hypochromasia Marked Poikilocytosis Slight Anisocytosis Slight Macrocytosis Marked Target Cells Present PT 11.2 (9.0-12.0) sec INR 1.1 (<1.2) APTT 25.1 (22.0-30.0) sec Sodium 138 (137-145) mmol/L Potassium 4.1 (3.5-5.1) mmol/L Chloride 107 (98-107) mmol/L Carbon Dioxide 24 (22-30) mmol/L Anion Gap 7 mmol/L BUN 32 H (9-20) mg/dL Creatinine 1.02 (0.66-1.25) mg/dL Est GFR (CKD-EPI)AfAm 89 (>60 ml/min/1.73 sqM) Est GFR (CKD-EPI)NonAf 77 (>60 ml/min/1.73 sqM) Glucose 146 H (74-99) mg/dL Calcium 8.5 (8.4-10.2) mg/dL Magnesium 2.3 (1.6-2.3) mg/dL Total Bilirubin 0.9 (0.2-1.3) mg/dL AST 32 (17-59) U/L ALT 31 (21-72) U/L Alkaline Phosphatase 287 H (38-126) U/L Troponin I (0.000-0.034) ng/mL NT-Pro-B Natriuret Pep pg/mL Total Protein 5.3 L (6.3-8.2) g/dL Albumin 2.6 L (3.5-5.0) g/dL 08/31/18 08/31/18 Range/Units 10:26 10:26 WBC (3.8-10.6) k/uL RBC (4.30-5.90) m/uL Hgb (13.0-17.5) gm/dL Hct (39.0-53.0) % MCV (80.0-100.0) fL MCH (25.0-35.0) pg MCHC (31.0-37.0) g/dL RDW (11.5-15.5) % Plt Count (150-450) k/uL Neutrophils % % Lymphocytes % % Monocytes % % Eosinophils % % Basophils % % Neutrophils # (1.3-7.7) k/uL Lymphocytes # (1.0-4.8) k/uL Monocytes # (0-1.0) k/uL Eosinophils # (0-0.7) k/uL Basophils # (0-0.2) k/uL Manual Slide Review Hypochromasia Poikilocytosis Anisocytosis Macrocytosis Target Cells PT (9.0-12.0) sec INR (<1.2) APTT (22.0-30.0) sec Sodium (137-145) mmol/L Potassium (3.5-5.1) mmol/L Chloride (98-107) mmol/L Carbon Dioxide (22-30) mmol/L Anion Gap mmol/L BUN (9-20) mg/dL Creatinine (0.66-1.25) mg/dL Est GFR (CKD-EPI)AfAm (>60 ml/min/1.73 sqM) Est GFR (CKD-EPI)NonAf (>60 ml/min/1.73 sqM) Glucose (74-99) mg/dL Calcium (8.4-10.2) mg/dL Magnesium (1.6-2.3) mg/dL Total Bilirubin (0.2-1.3) mg/dL AST (17-59) U/L ALT (21-72) U/L Alkaline Phosphatase (38-126) U/L Troponin I <0.012 (0.000-0.034) ng/mL NT-Pro-B Natriuret Pep 4560 pg/mL Total Protein (6.3-8.2) g/dL Albumin (3.5-5.0) g/dL - EKG Data -: EKG Interpreted by Vt EKG shows normal: sinus rhythm (Sinus rhythm rate 67. 01 46 QRS duration 92 QT since QTC 420/[address] configuration) Critical Care Time Critical Care Time: Yes Critical Care Time: 30 minutes of critical care time which includes initial presentation with history physical labs x-rays multiple reevaluation patient responsive therapy discussion with the patient and family members on multiple occasions. Discussion with Dr. Salcedo on several occasions discussion with the transferring team as well as the accepting physician. Review of old charting documentation of the above. Disposition Clinical Impression: Acute exacerbation of chronic obstructive airways disease, Adult respiratory distress syndrome, Mass of left lung, Pleural effusion, Chronic anemia, History of multiple myeloma, Failure of outpatient treatment Disposition: OTHER INSTITUTION NOT DEFINED Condition: Serious Is patient prescribed a controlled substance at d/c from ED?: No Referrals: Jp Coelho DO [Primary Care Provider] - 1-2 days - Out of Hospital Transfer - Req. Specs Out of Hospital Transfer - Requested Specifics: Other Emergency Center
--- NOTE | 2018-08-31 11:05 | XR ---
EXAMINATION TYPE: XR chest 2V DATE OF EXAM: 08/31/2018 COMPARISON: 08/26/2018 TECHNIQUE: PA and lateral views submitted. HISTORY: Shortness of breath FINDINGS: Large area of consolidation of all left lung may represent a pleural-based mass or empyema or loculat ed pleural effusion. Left-sided lower lobe consolidation and cardiomegaly noted. There is no pneumoth orax. Mild central venous congestion in the differential diagnosis. Degenerative change of the spine with multilevel mild compression deformities of indeterminate age. IMPRESSION: 1. Persistent left-sided consolidation and pleural effusion with pleural-based mass or effusion. Empy jeremiah in the differential diagnosis. No significant interval change.
[2018-08-31 11:06] LABS: Anisocytosis Slight; Basophils % (A) 0 %; Eosinophils % (A) 0 %; Hypochromasia Marked; Lymphocytes # (A) 0.9 k/uL (1.0-4.8); Lymphocytes % (A) 9 %; MCH 33.8 pg (25.0-35.0); MCHC 31.5 g/dL (31.0-37.0); Macrocytosis Marked; Mean Platelet Volume 8.7; Monocytes # (A) 0.3 k/uL (0-1.0); Monocytes % (A) 3 %; Neutrophils # (A) 8.8 k/uL (1.3-7.7); Neutrophils % (A) 85 %; Poikilocytosis Slight; RBC 2.61 m/uL (4.30-5.90); RDW 19.8 % (11.5-15.5); WBC 10.3 k/uL (3.8-10.6)
[2018-08-31 11:07] LABS: HGB 8.8 gm/dL (13.0-17.5)
[2018-08-31 11:08] LABS: MCV 107.3 fL (80.0-100.0); Platelet Count 30 k/uL (150-450)
[2018-08-31 11:12] LABS: Albumin 2.6 g/dL (3.5-5.0); Calcium 8.5 mg/dL (8.4-10.2); INR 1.1 (<1.2); Magnesium 2.3 mg/dL (1.6-2.3); Partial Thromboplastin Time 25.1 sec (22.0-30.0); Potassium 4.1 mmol/L (3.5-5.1); Prothrombin Time 11.2 sec (9.0-12.0); Total Bilirubin 0.9 mg/dL (0.2-1.3); Total Protein 5.3 g/dL (6.3-8.2)
[2018-08-31 11:24] LABS: Target Cells Present
[2018-08-31] MEDS ORDERED: RX INFO: IV CONTRAST WAS GIVEN 1 EACH MISC MISCELLANE PRN (14:05)
--- NOTE | 2018-08-31 14:43 | CT ---
EXAMINATION TYPE: CT chest w con DATE OF EXAM: 08/31/2018 COMPARISON: HISTORY: Shortness of breath. Known mass CT DLP: 383.6 mGycm. Automated Exposure Control for Dose Reduction was Utilized. TECHNIQUE: CT scan of the thorax is performed following with IV Contrast, patient injected with 100 mL of Isovue 300. FINDINGS: The patient's known primary lung mass although blends with post obstructive atelectasis is now appears relatively smaller is a central necrotic component measures 1.6 cm in the primary mass me asures approximately 5.3 cm as opposed to the prior of 5.9 cm. However there is increasing loculation of the increasing left pleural effusion and increasing subsegmental atelectasis. There is extensive background emphysematous change and reticular opacities of the peripheral lung that are likely on the basis of posttreatment change. No new suspicious masses are seen within the right lung. Spiculated g roundglass density is seen on series 204 image 20, unchanged. There is bilateral mild retroareolar gynecomastia. Severe coronary calcifications are seen within the left anterior descending coronary artery. Benign splenule, punctate benign splenic granulomas, and right renal cysts are incidentally seen in t he upper abdomen. Midthoracic compression deformity is unchanged. IMPRESSION: Although the primary left lung mass appears smaller than on the prior of 08/22/2018 there is increasing loculation and increasing volume within the left pleural effusion as well as increasing multifocal left-sided atelectasis. Findings are superimposed upon extensive pulmonary emphysematous change.
[2018-08-31] MEDS ORDERED: oxyCODONE-APAP 10-325MG 1 EACH TAB PO STA ×2 (14:52→17:13)
[2018-08-31] MEDS ORDERED: GABAPENTIN 300 MG CAP PO STA (14:52)
[2018-08-31] MEDS ORDERED: MEROPENEM 2 GM in SODIUM CHLORIDE 0.9% 100 ML IVPB STA (16:17)
[2018-08-31 19:16] VITALS: BP 131/78; PULSE 64; RESP 16; TEMP 98
== END 2018-08-31 19:15 | disposition short-term general hospital (02) ==
LOC: EC 10:04
DX: J44.1 Chronic obstructive pulmonary disease with (acute) exacerbation (principal); J90 Pleural effusion, not elsewhere classified; J80 Acute respiratory distress syndrome; R91.8 Other nonspecific abnormal finding of lung field; D53.9 Nutritional anemia, unspecified; J98.11 Atelectasis; Z85.79 Personal history of other malignant neoplasms of lymphoid, hematopoietic and related tissues; I25.10 Atherosclerotic heart disease of native coronary artery without angina pectoris; I25.2 Old myocardial infarction; F41.9 Anxiety disorder, unspecified; Z87.891 Personal history of nicotine dependence; Z79.899 Other long term (current) drug therapy; Z95.5 Presence of coronary angioplasty implant and graft; Z98.890 Other specified postprocedural states; Z92.21 Personal history of antineoplastic chemotherapy; Z94.84 Stem cells transplant status; Z80.1 Family history of malignant neoplasm of trachea, bronchus and lung; Z53.9 Procedure and treatment not carried out, unspecified reason
CPT/HCPCS: 99291; 96365; 96375; 96361 ×7; 36415; 94640; 93005; 83880; 80053; 83735; 84484; 85025; 85610; 85730; 87040; 71046; 71260; J2930; J2185; Q9967

== ENCOUNTER 2018-10-05 20:47 | Inpatient (IN) | payer MEDICARE, BC ==
[2018-10-05] MEDS ORDERED: ONDANSETRON 4 MG/2 ML VIAL IVP STA (21:11)
[2018-10-05] MEDS ORDERED: SODIUM CHLORIDE 0.9% 1,000 ML IV STA (21:11)
[2018-10-05] MEDS ORDERED: MORPHINE SULFATE 4 MG/ML SYRINGE IVP STA (22:11)
--- NOTE | 2018-10-05 22:16 | ED ---
Nausea/Vomiting/Diarrhea HPI - General Chief complaint: Nausea/Vomiting/Diarrhea Stated complaint: Vomiting- CA Pt Time Seen by Provider: 10/05/18 20:55 Source: patient, family Mode of arrival: ambulatory Limitations: no limitations - History of Present Illness Initial comments: The patient does present to the emergency room with complaint of nausea and vomiting. He is a 63-year-old male with past medical history of multiple myeloma. The patient was recently hospitalized here. He was also hospitalized at [facility] and discharged proximally 14 days ago. He had recurrent left-sided pleural effusions with a left-sided lung mass. He did have a chest tube placed and they attempted to biopsy the chest mass however they were unsuccessful. The patient does remain with a left-sided Pleurx catheter in place. Son at bedside states that there has been increasing drainage from the catheter. The home care nurse comes to the house every other day to drain it. The patient has had persistent nausea and vomiting since Monday. The patient has been unable to hold down any liquids. When the homecare visited today they did suggest that the patient go to the emergency room. He admits to back pain secondary to compression fractures. He denies any abdominal pain. Denies any changes in his urination to include dysuria, hematuria or difficulty voiding. He denies any changes in his bowel movements to include diarrhea, constipation, melanotic stools or hematochezia. He does admit to weakness and a 40 pound weight loss. He does see Dr. Spangler from hematology and oncology. He has been receiving radiation treatments to his left hip. Denies any current chemo treatments. He denies any fevers or chills - Related Data Home Medications Medication Instructions Recorded Confirmed Gabapentin [Neurontin] 600 mg PO TID 01/08/14 10/05/18 Atorvastatin [Lipitor] 40 mg PO DAILY 03/24/14 10/05/18 Acyclovir [Zovirax] 400 mg PO BID 08/06/18 10/05/18 Cetirizine HCl [Zyrtec] 10 mg PO HS 08/06/18 10/05/18 Lisinopril [Zestril] 2.5 mg PO DAILY 08/06/18 10/05/18 Prochlorperazine [Compazine] 10 mg PO Q6H PRN 08/22/18 10/05/18 Pyridoxine HCl (Vitamin B6) 100 mg PO BID 08/22/18 10/05/18 [Vitamin B-6] oxyCODONE-APAP 10-325MG [Percocet 1 tab PO Q4H PRN 08/22/18 10/05/18 10-325 mg] Aspirin [Adult Low Dose Aspirin EC] 81 mg PO DAILY 10/05/18 10/05/18 Dexamethasone 40 mg PO Q7D 10/05/18 10/05/18 Famotidine 20 mg PO DAILY 10/05/18 10/05/18 Ixazomib Citrate [Ninlaro] 4 mg PO Q7D 10/05/18 10/05/18 Lenalidomide [Revlimid] 25 mg PO DAILY 10/05/18 10/05/18 Sulfamethox-Tmp 800-160Mg [Bactrim 1 tab PO MOWEFR 10/05/18 10/05/18 DS 800-160 mg] Allergies Allergy/AdvReac Type Severity Reaction Status Date / Time No Known Allergies Allergy Verified 10/05/18 21:51 Review of Systems ROS Statement: Those systems with pertinent positive or pertinent negative responses have been documented in the HPI. ROS Other: All systems not noted in ROS Statement are negative. Past Medical History Past Medical History: Coronary Artery Disease (CAD), Cancer, COPD, GERD/Reflux, Myocardial Infarction (NM), Pneumonia Additional Past Medical History / Comment(s): 2009 diagnosed with multiple myeloma-tx with chemo and in 2010 had stem cell transplant, recently found L hilar mass-has had it biopsied and awaiting results, pt states he is on HTN med and cholesterol medications since his MIs prophylactically, gastric ulcer years ago, low back pain, neuropathy bilateral legs/feet since chemo for multiple myeloma treated, sinus problems. Last Myocardial Infarction Date:: 01/09/14, FEB 2005 History of Any Multi-Drug Resistant Organisms: None Reported Past Surgical History: Heart Catheterization, Heart Catheterization With Stent Additional Past Surgical History / Comment(s): 2011 Stem cell transplant, multiple bone marrow bxs, 08/08/18 and 08/16/18 bronchoscopies/biopsies/needle aspiration, EGD/colonoscopy. Pleural drainage system in place Past Anesthesia/Blood Transfusion Reactions: No Reported Reaction Additional Past Anesthesia/Blood Transfusion Reaction / Comment(s): Pt states he received blood in past without reaction. Date of Last Stent Placement:: 01/09/14 Past Psychological History: Anxiety Smoking Status: Former smoker Past Alcohol Use History: None Reported Past Drug Use History: None Reported - Past Family History Father Family Medical History: Cancer Additional Family Medical History / Comment(s): LUNG CA Son(s) Family Medical History: Cancer Additional Family Medical History / Comment(s): BLADDER CA Mother Family Medical History: No Reported History Additional Family Medical History / Comment(s): Mother is healthy and is 86yrs old. General Exam Limitations: no limitations General appearance: alert, in no apparent distress, cachectic Head exam: Present: atraumatic, normocephalic, normal inspection Eye exam: Present: normal appearance, PERRL, EOMI. Absent: scleral icterus, conjunctival injection, periorbital swelling Pupils: Present: normal accommodation ENT exam: Present: normal exam, mucous membranes dry Neck exam: Present: normal inspection, full ROM. Absent: tenderness, meningismus, lymphadenopathy, thyromegaly Respiratory exam: Present: normal lung sounds bilaterally. Absent: respiratory distress, wheezes, rales, rhonchi, stridor, accessory muscle use Cardiovascular Exam: Present: regular rate, normal rhythm, normal heart sounds. Absent: systolic murmur, diastolic murmur, rubs, gallop, clicks GI/Abdominal exam: Present: soft, normal bowel sounds. Absent: distended, tenderness, guarding, rebound, rigid Rectal exam: Present: deferred Extremities exam: Present: normal inspection, full ROM, normal capillary refill. Absent: tenderness, pedal edema, joint swelling, calf tenderness Back exam: Present: vertebral tenderness (Diffuse tenderness to palpation of the lower thoracic and) Neurological exam: Present: alert, oriented X3, CN II-XII intact Psychiatric exam: Present: normal affect, normal mood Skin exam: Present: warm, dry, intact, normal color. Absent: rash Course Vital Signs 10/05/18 10/05/18 10/06/18 20:48 23:25 00:43 Temperature 98.4 F 98.5 F Pulse Rate 75 68 73 Respiratory 18 19 19 Rate Blood Pressure 96/54 117/65 98/54 O2 Sat by Pulse 96 97 95 Oximetry 10/06/18 10/06/18 10/06/18 00:48 00:58 01:28 Temperature 98.4 F 98.5 F 98.2 F Pulse Rate 72 71 71 Respiratory 18 19 19 Rate Blood Pressure 110/55 100/60 104/56 O2 Sat by Pulse 98 97 96 Oximetry 10/06/18 10/06/18 10/06/18 02:23 03:37 04:04 Temperature 98.8 F Pulse Rate 66 68 Respiratory 17 19 18 Rate Blood Pressure 98/62 112/57 O2 Sat by Pulse 94 L 96 Oximetry Medical Decision Making - Medical Decision Making The patient was seen by myself. He was placed into room 1. He was immediately hooked up to continuous pulse ox and cardiac monitoring. A 12-lead EKG was performed. We did obtain laboratory studies. We did obtain IV access and the patient was given a 1 L bolus of 0.9% normal saline. He was also given Zofran for his nausea. Upon return of the results, it is noted that the patient's hemoglobin has dropped from 8.8 to 6.9. His platelet there are also 6 from 30. His white blood cell count is 2.7 from 10.3. I do believe the patient's pancytopenia is from his active multiple myeloma. The patient also has a creatinine of 3.1 from 1. This is likely secondary to to the patient's nausea and vomiting. He is started at 75 mL of normal saline per hour. I did type and screen the patient. I did transfuse him with 1 unit of packed red blood cells and a unit of platelets. I did send the patient over for CT of his abdomen and pelvis even though he reports no abdominal pain. It does demonstrate a left- sided perinephric hemorrhage. Because of this I did call and discuss the case with Dr. Hammond. I also discussed the case with Dr. Turner. They both agreed to be on consult for the patient. We will monitor the patient's hemoglobin every 6 hours using microtubules. The patient continued to have back pain and so was given 4 mg of morphine. This did not touch the patient's pain and so he was gi trinity 1 milligram of Dilaudid. The patient does have good pain relief. He will be admitted to the service of Dr. Jacobs. I discussed discussed the case with Dr. Jacobs. He did recommend consult with Dr. Reynolds. The patient's blood pressure remained stable and he remained pain-free. He was then transported to the floor in stable condition. Addendum. Prior to the patient going up to the floor they did call and stated the patient's hemoglobin is 6.1. Because of this I did order a second unit of p acked red blood cells. The patient's platelets have improved a 47. I will transfuse the patient 1 unit and recheck his hemoglobin level at 6:00 am. Should the patient's hemoglobin persistently remained low, Dr. Reynolds and Dr. Turner will be notified. - Lab Data Result diagrams: 10/06/18 03:10 10/05/18 21:30 Lab Results 10/05/18 10/05/18 10/05/18 Range/Units 21:30 21:30 21:30 WBC 2.7 L (3.8-10.6) k/uL RBC 2.13 L (4.30-5.90) m/uL Hgb 6.9 L* D (13.0-17.5) gm/dL Hct 21.7 L (39.0-53.0) % MCV 102.2 H D (80.0-100.0) fL MCH 32.3 (25.0-35.0) pg MCHC 31.6 (31.0-37.0) g/dL RDW 24.2 H (11.5-15.5) % Plt Count 6 L* D (150-450) k/uL Neutrophils % (Manual) 74 % Lymphocytes % (Manual) 19 % Monocytes % (Manual) 6 % Metamyelocytes % 1 % Neutrophils # (Manual) 2.00 (1.3-7.7) k/uL Lymphocytes # (Manual) 0.51 L (1.0-4.8) k/uL Monocytes # (Manual) 0.16 (0-1.0) k/uL Metamyelocytes # (Man) 0.03 H (0) k/uL Nucleated RBCs 0 (0-0) /100 WBC Manual Slide Review Performed Polychromasia Present Hypochromasia Slight Poikilocytosis (manual Present Anisocytosis Marked Macrocytosis Marked PT (9.0-12.0) sec INR (<1.2) Sodium 139 (137-145) mmol/L Potassium 4.3 (3.5-5.1) mmol/L Chloride 107 (98-107) mmol/L Carbon Dioxide 16 L (22-30) mmol/L Anion Gap 16 mmol/L BUN 45 H (9-20) mg/dL Creatinine 3.11 H (0.66-1.25) mg/dL Est GFR (CKD-EPI)AfAm 23 (>60 ml/min/1.73 sqM) Est GFR (CKD-EPI)NonAf 20 (>60 ml/min/1.73 sqM) Glucose 123 H (74-99) mg/dL Plasma Lactic Acid Trinity (0.7-2.0) mmol/L Calcium 9.9 (8.4-10.2) mg/dL Total Bilirubin 1.0 (0.2-1.3) mg/dL AST 16 L (17-59) U/L ALT 19 L (21-72) U/L Alkaline Phosphatase 101 (38-126) U/L Total Protein 6.5 (6.3-8.2) g/dL Albumin 4.0 (3.5-5.0) g/dL Lipase 42 (23-300) U/L TSH 2.020 (0.465-4.680) mIU/L Urine Color Light Red Urine Appearance Turbid (Clear) Urine pH 5.5 (5.0-8.0) Ur Specific Lotus 1.016 (1.001-1.035) Urine Protein 1+ H (Negative) Urine Glucose (UA) Negative (Negative) Urine Ketones 1+ H (Negative) Urine Blood Large H (Negative) Urine Nitrite Negative (Negative) Urine Bilirubin Negative (Negative) Urine Urobilinogen <2.0 (<2.0) mg/dL Ur Leukocyte Esterase Negative (Negative) Urine RBC >182 H (0-5) /hpf Urine WBC 80 H (0-5) /hpf Ur Squamous Epith Cells 2 (0-4) /hpf Uric Acid Crystals Many H (None) /hpf Urine Mucus Rare H (None) /hpf Blood Type Blood Type Recheck Antibody Screen Crossmatch Transfuse Platelets Spec Expiration Date 10/05/18 10/05/18 10/05/18 Range/Units 21:30 21:30 23:30 WBC (3.8-10.6) k/uL RBC (4.30-5.90) m/uL Hgb (13.0-17.5) gm/dL Hct (39.0-53.0) % MCV (80.0-100.0) fL MCH (25.0-35.0) pg MCHC (31.0-37.0) g/dL RDW (11.5-15.5) % Plt Count (150-450) k/uL Neutrophils % (Manual) % Lymphocytes % (Manual) % Monocytes % (Manual) % Metamyelocytes % % Neutrophils # (Manual) (1.3-7.7) k/uL Lymphocytes # (Manual) (1.0-4.8) k/uL Monocytes # (Manual) (0-1.0) k/uL Metamyelocytes # (Man) (0) k/uL Nucleated RBCs (0-0) /100 WBC Manual Slide Review Polychromasia Hypochromasia Poikilocytosis (manual Anisocytosis Macrocytosis PT 10.8 (9.0-12.0) sec INR 1.0 (<1.2) Sodium (137-145) mmol/L Potassium (3.5-5.1) mmol/L Chloride (98-107) mmol/L Carbon Dioxide (22-30) mmol/L Anion Gap mmol/L BUN (9-20) mg/dL Creatinine (0.66-1.25) mg/dL Est GFR (CKD-EPI)AfAm (>60 ml/min/1.73 sqM) Est GFR (CKD-EPI)NonAf (>60 ml/min/1.73 sqM) Glucose (74-99) mg/dL Plasma Lactic Acid Trinity 1.4 (0.7-2.0) mmol/L Calcium (8.4-10.2) mg/dL Total Bilirubin (0.2-1.3) mg/dL AST (17-59) U/L ALT (21-72) U/L Alkaline Phosphatase (38-126) U/L Total Protein (6.3-8.2) g/dL Albumin (3.5-5.0) g/dL Lipase (23-300) U/L TSH (0.465-4.680) mIU/L Urine Color Urine Appearance (Clear) Urine pH (5.0-8.0) Ur Specific Lotus (1.001-1.035) Urine Protein (Negative) Urine Glucose (UA) (Negative) Urine Ketones (Negative) Urine Blood (Negative) Urine Nitrite (Negative) Urine Bilirubin (Negative) Urine Urobilinogen (<2.0) mg/dL Ur Leukocyte Esterase (Negative) Urine RBC (0-5) /hpf Urine WBC (0-5) /hpf Ur Squamous Epith Cells (0-4) /hpf Uric Acid Crystals (None) /hpf Urine Mucus (None) /hpf Blood Type A Positive Blood Type Recheck No Antibody Screen NEGATIVE Crossmatch See Detail Transfuse Platelets Spec Expiration Date 10/08/2018 - 232910/05/18 Range/Units 23:50 WBC (3.8-10.6) k/uL RBC (4.30-5.90) m/uL Hgb (13.0-17.5) gm/dL Hct (39.0-53.0) % MCV (80.0-100.0) fL MCH (25.0-35.0) pg MCHC (31.0-37.0) g/dL RDW (11.5-15.5) % Plt Count (150-450) k/uL Neutrophils % (Manual) % Lymphocytes % (Manual) % Monocytes % (Manual) % Metamyelocytes % % Neutrophils # (Manual) (1.3-7.7) k/uL Lymphocytes # (Manual) (1.0-4.8) k/uL Monocytes # (Manual) (0-1.0) k/uL Metamyelocytes # (Man) (0) k/uL Nucleated RBCs (0-0) /100 WBC Manual Slide Review Polychromasia Hypochromasia Poikilocytosis (manual Anisocytosis Macrocytosis PT (9.0-12.0) sec INR (<1.2) Sodium (137-145) mmol/L Potassium (3.5-5.1) mmol/L Chloride (98-107) mmol/L Carbon Dioxide (22-30) mmol/L Anion Gap mmol/L BUN (9-20) mg/dL Creatinine (0.66-1.25) mg/dL Est GFR (CKD-EPI)AfAm (>60 ml/min/1.73 sqM) Est GFR (CKD-EPI)NonAf (>60 ml/min/1.73 sqM) Glucose (74-99) mg/dL Plasma Lactic Acid Trinity (0.7-2.0) mmol/L Calcium (8.4-10.2) mg/dL Total Bilirubin (0.2-1.3) mg/dL AST (17-59) U/L ALT (21-72) U/L Alkaline Phosphatase (38-126) U/L Total Protein (6.3-8.2) g/dL Albumin (3.5-5.0) g/dL Lipase (23-300) U/L TSH (0.465-4.680) mIU/L Urine Color Urine Appearance (Clear) Urine pH (5.0-8.0) Ur Specific Lotus (1.001-1.035) Urine Protein (Negative) Urine Glucose (UA) (Negative) Urine Ketones (Negative) Urine Blood (Negative) Urine Nitrite (Negative) Urine Bilirubin (Negative) Urine Urobilinogen (<2.0) mg/dL Ur Leukocyte Esterase (Negative) Urine RBC (0-5) /hpf Urine WBC (0-5) /hpf Ur Squamous Epith Cells (0-4) /hpf Uric Acid Crystals (None) /hpf Urine Mucus (None) /hpf Blood Type Blood Type Recheck Antibody Screen Crossmatch Transfuse Platelets 10/06/2018 Spec Expiration Date - EKG Data EKG Comments: EKG demonstrates a normal sinus rhythm with a ventricular rate of 74. DE interval 136. QRS 94. QTC of 437. There are no acute ST segment elevations or depressions concerning for ischemic changes. No signs of Parkinson White or Brugada syndrome. Disposition Clinical Impression: Dehydration, Pancytopenia, Multiple myeloma, Acute kidney failure Disposition: ADMITTED IP TO THIS [facility] Condition: Stable Is patient prescribed a controlled substance at d/c from ED?: No Decision to Admit Reason: Admit from EC Decision Date: 10/06/18 Decision Time: 01:45
[2018-10-05 22:21] LABS: Calcium 9.9 mg/dL (8.4-10.2); Potassium 4.3 mmol/L (3.5-5.1); Total Protein 6.5 g/dL (6.3-8.2)
--- NOTE | 2018-10-05 22:22 | XR ---
EXAM: XR Chest, 2 Views CLINICAL HISTORY: Reason: pain TECHNIQUE: Frontal and lateral views of the chest. COMPARISON: Chest x-ray 08/31/2018. Chest x-ray 08/22/2018. FINDINGS: Lungs: Persistent pulmonary parenchymal opacity/infiltrate involving left lower lobe and lingula. Small approximate 1 cm nodular density projects to left lung base evidence of mild left hemithorax volume loss. Pleural space: Pleural density along left mid and lower hemithorax suggesting pleural effusion or pleural thickening demonstrating some interval decrease in pleural density since 08/31/2018. No evidence of pneumothorax. Heart: Heart size is within normal limits. Mediastinum: Mediastinal structures are unremarkable. Bones/joints: Mild T8 vertebral compression fracture remains unchanged. Development of mild T12 vertebral compression fracture which is new since 08/31/2018. There is also mild L1 vertebral compression fracture. Tubes, lines and devices: Interval placement of thoracostomy tube projecting along the posterior left lower hemithorax. Surgical skin ducth are present along lateral left lower chest wall. IMPRESSION: Persistent left mid and lower lung zone pulmonary opacity/infiltrate with associated mild volume loss. Small nodular density projecting to left lung base which is of indeterminate etiology. Interval placement of left thoracostomy tube and postsurgical changes along lateral left lower hemithorax. Left pleural density suggesting small to moderate pleural effusion and/or pleural thickening. No evidence of pneumothorax. Multiple vertebral compression fractures as described in body of report.
[2018-10-05 22:24] LABS: Prothrombin Time 10.8 sec (9.0-12.0)
[2018-10-05 22:33] LABS: Anisocytosis Marked; HCT 21.7 % (39.0-53.0); Hypochromasia Slight; MCH 32.3 pg (25.0-35.0); MCHC 31.6 g/dL (31.0-37.0); Macrocytosis Marked; Mean Platelet Volume 8.1; RBC 2.13 m/uL (4.30-5.90); RDW 24.2 % (11.5-15.5); WBC 2.7 k/uL (3.8-10.6)
[2018-10-05 22:36] LABS: Appearance,Urine Turbid (Clear); Bilirubin,Urine Negative (Negative); Blood,Urine Large (Negative); Color,Urine Light Red; Glucose,Urine (UA) Negative (Negative); Ketones,Urine 1+ (Negative); Leukocyte Esterase,Urine Negative (Negative); Mucus,Urine Rare /hpf; Nitrite,Urine Negative (Negative); PH, Urine 5.5 (5.0-8.0); Protein,Urine 1+ (Negative); RBC,Urine >182 /hpf (0-5); Specific Gravity,Urine 1.016 (1.001-1.035); Squamous Epithelial Cell,Urine 2 /hpf (0-4); Uric Acid Crystals,Urine Many /hpf; Urobilinogen,Urine <2.0 mg/dL (<2.0)
[2018-10-05 22:45] LABS: HGB 6.9 gm/dL (13.0-17.5); MCV 102.2 fL (80.0-100.0)
[2018-10-05 22:57] LABS: Lymphocytes # (M) 0.51 k/uL (1.0-4.8); Metamyelocytes # (M) 0.03 k/uL (0); Metamyelocytes % 1 %; Monocytes # (M) 0.16 k/uL (0-1.0); Neutrophils % (M) 74 %; Nucleated Red Blood Cells 0 /100 WBC (0-0); Poikilocytosis (M) Present; Polychromasia Present; Total Cells Counted 100
[2018-10-05 23:02] LABS: Platelet Count 6 k/uL (150-450)
[2018-10-05] MEDS ORDERED: HYDROmorphone 1 MG/ML 1 ML SYRINGE IVP STA (23:07)
--- NOTE | 2018-10-06 00:37 | CT ---
EXAM: CT Abdomen and Pelvis Without Intravenous Contrast CLINICAL HISTORY: Reason: Pain. Vomiting. History of myeloma. TECHNIQUE: Axial computed tomography images of the abdomen and pelvis without intravenous contrast. CTDI is 7.3 mGy and DLP is 406.6 mGy-cm. This CT exam was performed using one or more of the following dose reduction techniques: automated exposure control, adjustment of the mA and/or kV according to patient size, and/or use of iterative reconstruction technique. COMPARISON: Chest x-ray 10/05/2018. CT chest 08/22/2018. FINDINGS: Lung bases: Small pleural collection along the left lower hemithorax possibly loculated with indwelling chest tube. Multiple gas locules within pleural collection may be related to indwelling chest tube although infection/empyema cannot be excluded. Clinical correlation is recommended. Associated left basilar atelectasis and mild consolidative opacity. Mild pleural thickening along the anterolateral left lower hemithorax. ABDOMEN: Liver: Liver is unremarkable. Gallbladder and bile ducts: Distended gallbladder. No calcified gallstones. No pericholecystic inflammatory changes. Pancreas: Pancreas is unremarkable. Spleen: Spleen is unremarkable except for several calcified splenic granulomas. Adrenals: No adrenal masses. Kidneys and ureters: Bilateral nonspecific perinephric stranding. Several small bilateral renal calcifications suggesting nonobstructing renal calculi. No evidence of hydronephrosis. Approximately 2.9 cm right mid zone probable renal cyst. Evidence of hyperdense left anterior perirenal collection compatible with perirenal hemorrhage of uncertain etiology. Perirenal hemorrhage/hematoma measures approximately 2.0 cm AP by 7.5 cm transverse and extends along the anterior pararenal space adjacent to left kidney and also extending adjacent to left renal vein. There is additional ovoid low-density collection along the lateral left perirenal space measuring 2.7 x 2.5 x 4.9 cm. Stomach and bowel: Stomach is nondistended. No evidence of bowel obstruction or pneumoperitoneum. Colonic diverticulosis. Colon is incompletely distended limiting colonic evaluation. PELVIS: Appendix: No findings to suggest acute appendicitis. Bladder: Minimal calcific density along the posterior dependent aspect of the nerve bladder may reflect tiny bladder calculi or possible focal bladder wall calcic calcification. Reproductive: Unremarkable as visualized. ABDOMEN and PELVIS: Intraperitoneal space: See above. Bones/joints: Development of moderate T12 vertebral compression fracture which is new since CT chest 08/22/2018 and appears acute. Development of mild superior vertebral endplate compression fractures involving T10 and T11 also suspicious for acute fractures. Mild chronic L1 vertebral compression fracture remains unchanged. Mild L4 vertebral compression fracture which is of indeterminate age. Lytic and sclerotic bone lesions involving left sacrum and left iliac bone which may reflect post therapy changes and osteonecrosis although mixed lytic/blastic metastatic disease cannot be excluded. Clinical correlation is recommended. Vasculature: Moderate calcific atherosclerotic disease. Mild ectasia of distal abdominal aorta measuring 2.8 cm in maximum AP diameter without significant aneurysmal dilatation. Lymph nodes: No evidence of lymphadenopathy. IMPRESSION: Evidence of acute left perirenal hemorrhage along the left anterior perirenal space extending adjacent to left kidney and left renal vein. Perirenal hemorrhage is of uncertain etiology and there is also low- density collection along left lateral perirenal space. Clinical correlation is recommended. Small nonobstructing bilateral renal calculi. No evidence of hydronephrosis. Minimal dependent urinary bladder calcification which may reflect tiny bladder calculi or bladder wall calcification. Mild ectasia of distal abdominal aorta measuring 2.8 cm in maximum AP diameter without significant aneurysmal dilatation. Distended gallbladder. No radiopaque gallstones. No evidence of bowel obstruction or pneumoperitoneum. Multiple lower thoracic and lumbar vertebral compression fractures, some of which appear acute as described in body of report. Possibility of pathologic compression fractures must be considered in a patient with history of myeloma. Mixed lytic and blastic bone lesions involving left sacrum and left iliac bone. Left lower hemithorax pleural collection with indwelling left chest tube. Gas collections may be related to indwelling chest tube or possible infection/empyema. Clinical correlation is recommended. <MYCVCSECTION> [employer] 10/06/18 00:41 Call Doctor Regarding Other, called Dr. Charlton
[2018-10-06] MEDS ORDERED: NALOXONE 0.4 MG/ML 1 ML VIAL IV PRN (01:32)
[2018-10-06] MEDS ORDERED: HYDROmorphone 0.5 MG/0.5 ML SYRINGE IVP PRN (01:37)
[2018-10-06] MEDS ORDERED: DEXAMETHASONE 4 MG TAB PO SCH (01:45)
[2018-10-06] MEDS: SODIUM CHLORIDE 0.9% 1,000 ML IV SCH ×3 (02:01→12:40)
[2018-10-06] MEDS: HYDROmorphone 1 MG/ML 1 ML SYRINGE IVP PRN ×6 (03:31→21:25)
[2018-10-06 03:45] LABS: RBC 1.98 m/uL (4.30-5.90); WBC 1.9 k/uL (3.8-10.6)
[2018-10-06 03:46] LABS: Anisocytosis Moderate; Hypochromasia Slight; MCH 31.1 pg (25.0-35.0); MCHC 31.6 g/dL (31.0-37.0); MCV 98.2 fL (80.0-100.0); Macrocytosis Moderate; Mean Platelet Volume 8.3; RDW 23.7 % (11.5-15.5)
[2018-10-06 04:06] LABS: Platelet Count 46 k/uL (150-450)
[2018-10-06 04:09] LABS: HCT 19.4 % (39.0-53.0); HGB 6.1 gm/dL (13.0-17.5)
[2018-10-06] MEDS: ACYCLOVIR 200 MG CAP PO SCH ×2 (08:06→21:24)
--- NOTE | 2018-10-06 10:21 | P.GSCN ---
History of Present Illness Consult date: 10/06/18 Reason for Consult: Possible left perinephric hematoma History of present illness: The patient is a 63-year-old male admitted through the emergency room last night for evaluation of anemia, severe thrombocytopenia and a possible left perinephr ic hematoma. The patient has a complicated history related to multiple myeloma which was diagnosed in 2009. He received chemotherapy and a stem cell transplant in 2010 but his disease has progressed. He has chronic back pain due to pathologic fractures of T6 through 8 and T10. He was found to have a left pleural effusion and a left hilar mass and was evaluated and treated at [facility] in August. He underwent unsuccessful biopsy of the mass and says that he had several chest tubes placed for treatment of his pleural effusion. He was discharged with a Pleurx catheter. He says that he was feeling well on 09/30 and tolerated a regular diet. Beginning on 10/01 he developed increasing nausea and vomiting and has had a very poor fluid intake through the week. He had a visiting nurse that evaluated him on 10/05 who recommended that he come to the emergency room for further evaluation as he appeared dehydrated. The emergency room he was noted have a BUN of 45 and creatinine of 3.11 with a bicarb of 16. His white blood count was 2700, hemoglobin was 6.9 and his platelet count was 6000. Computed tomography scan of the abdomen without IV contrast showed evidence of a mass which appeared to be anterior to the hilum of the left kidney with some perinephric stranding. The mass was consistent with a perinephric hematoma. The patient has been treated with packed red blood cells and platelet transfusion. His platelet count was 46,000 and his hemoglobin was 6.1 at 3:00 this morning. He has remained afebrile and normotensive. The patient denies any left-sided abdominal pain. He says he did have some transient right-sided abdominal pain earlier in the week. He has chronic pain from his vertebral body fractures which has not changed recently. He denies any gross hematuria. He has no history of urolithiasis. Review of Systems - Constitutional Reports anorexia, Reports fatigue, Denies chills, Denies fever - Cardiovascular Denies shortness of breath - Gastrointestinal Reports as per HPI - Genitourinary Denies hematuria, Denies testicular pain Past Medical History Past Medical History: Coronary Artery Disease (CAD), Cancer, COPD, GERD/Reflux, Myocardial Infarction ([place]), Pneumonia Additional Past Medical History / Comment(s): 2009 diagnosed with multiple myeloma-tx with chemo and in 2010 had stem cell transplant, recently found L hilar mass-has had it biopsied and awaiting results, pt states he is on HTN med and cholesterol medications since his MIs prophylactically, gastric ulcer years ago, low back pain, neuropathy bilateral legs/feet since chemo for multiple myeloma treated, sinus problems. Last Myocardial Infarction Date:: 01/09/14, FEB 2005 History of Any Multi-Drug Resistant Organisms: None Reported Past Surgical History: Heart Catheterization, Heart Catheterization With Stent Additional Past Surgical History / Comment(s): 2011 Stem cell transplant, multiple bone marrow bxs, 08/08/18 and 08/16/18 bronchoscopies/biopsies/needle aspiration, EGD/colonoscopy. Pleural drainage system in place Past Anesthesia/Blood Transfusion Reactions: No Reported Reaction Additional Past Anesthesia/Blood Transfusion Reaction / Comm: Pt states he received blood in past without reaction. Date of Last Stent Placement:: 01/09/14 Past Psychological History: Anxiety Smoking Status: Former smoker Past Alcohol Use History: None Reported Past Drug Use History: None Reported - Past Family History Father Family Medical History: Cancer Additional Family Medical History / Comment(s): LUNG CA Son(s) Family Medical History: Cancer Additional Family Medical History / Comment(s): BLADDER CA Mother Family Medical History: No Reported History Additional Family Medical History / Comment(s): Mother is healthy and is 86yrs old. Medications and Allergies Home Medications Medication Instructions Recorded Confirmed Type Gabapentin [Neurontin] 600 mg PO TID 01/08/14 10/05/18 History Atorvastatin [Lipitor] 40 mg PO DAILY 03/24/14 10/05/18 History Acyclovir [Zovirax] 400 mg PO BID 08/06/18 10/05/18 History Cetirizine HCl [Zyrtec] 10 mg PO HS 08/06/18 10/05/18 History Lisinopril [Zestril] 2.5 mg PO DAILY 08/06/18 10/05/18 History Prochlorperazine [Compazine] 10 mg PO Q6H PRN 08/22/18 10/05/18 History Pyridoxine HCl (Vitamin B6) 100 mg PO BID 08/22/18 10/05/18 History [Vitamin B-6] oxyCODONE-APAP 10-325MG [Percocet 1 tab PO Q4H PRN 08/22/18 10/05/18 History 10-325 mg] Aspirin [Adult Low Dose Aspirin EC] 81 mg PO DAILY 10/05/18 10/05/18 History Dexamethasone 40 mg PO Q7D 10/05/18 10/05/18 History Famotidine 20 mg PO DAILY 10/05/18 10/05/18 History Ixazomib Citrate [Ninlaro] 4 mg PO Q7D 10/05/18 10/05/18 History Lenalidomide [Revlimid] 25 mg PO DAILY 10/05/18 10/05/18 History Sulfamethox-Tmp 800-160Mg [Bactrim 1 tab PO MOWEFR 10/05/18 10/05/18 History DS 800-160 mg] Allergies Allergy/AdvReac Type Severity Reaction Status Date / Time No Known Allergies Allergy Verified 10/05/18 21:51 Surgical - Exam Vital Signs Temp Pulse Resp BP Pulse Ox 98.4 F 75 18 96/54 96 10/05/18 20:48 10/05/18 20:48 10/05/18 20:48 10/05/18 20:48 10/05/18 20:48 - General well developed, well nourished, no distress - Eyes pale - ENT no hearing loss - Neck no masses, no lymphadectomy - Respiratory normal respiratory effort - Abdomen Abdomen: soft, non tender, no organomegaly Hernia: none - Genitourinary normal penis with no external lesions, testicles non-tender Results - Labs 10/06/18 03:10 10/05/18 21:30 Abnormal Lab Results - Last 24 Hours (Table) 10/05/18 10/05/18 10/05/18 Range/Units 21:30 21:30 21:30 WBC 2.7 L (3.8-10.6) k/uL RBC 2.13 L (4.30-5.90) m/uL Hgb 6.9 L* D (13.0-17.5) gm/dL Hct 21.7 L (39.0-53.0) % MCV 102.2 H D (80.0-100.0) fL RDW 24.2 H (11.5-15.5) % Plt Count 6 L* D (150-450) k/uL Lymphocytes # (Manual) 0.51 L (1.0-4.8) k/uL Metamyelocytes # (Man) 0.03 H (0) k/uL Carbon Dioxide 16 L (22-30) mmol/L BUN 45 H (9-20) mg/dL Creatinine 3.11 H (0.66-1.25) mg/dL Glucose 123 H (74-99) mg/dL AST 16 L (17-59) U/L ALT 19 L (21-72) U/L Urine Protein 1+ H (Negative) Urine Ketones 1+ H (Negative) Urine Blood Large H (Negative) Urine RBC >182 H (0-5) /hpf Urine WBC 80 H (0-5) /hpf Uric Acid Crystals Many H (None) /hpf Urine Mucus Rare H (None) /hpf Crossmatch 10/05/18 10/06/18 Range/Units 23:30 03:10 WBC 1.9 L (3.8-10.6) k/uL RBC 1.98 L (4.30-5.90) m/uL Hgb 6.1 L* (13.0-17.5) gm/dL Hct 19.4 L* (39.0-53.0) % MCV (80.0-100.0) fL RDW 23.7 H (11.5-15.5) % Plt Count 46 L D (150-450) k/uL Lymphocytes # (Manual) (1.0-4.8) k/uL Metamyelocytes # (Man) (0) k/uL Carbon Dioxide (22-30) mmol/L BUN (9-20) mg/dL Creatinine (0.66-1.25) mg/dL Glucose (74-99) mg/dL AST (17-59) U/L ALT (21-72) U/L Urine Protein (Negative) Urine Ketones (Negative) Urine Blood (Negative) Urine RBC (0-5) /hpf Urine WBC (0-5) /hpf Uric Acid Crystals (None) /hpf Urine Mucus (None) /hpf Crossmatch See Detail Microbiology - Last 24 Hours (Table) 10/05/18 21:30 Urine Culture - Preliminary Urine,Voided Diabetes panel 10/05/18 Range/Units 21:30 Sodium 139 (137-145) mmol/L Potassium 4.3 (3.5-5.1) mmol/L Chloride 107 (98-107) mmol/L Carbon Dioxide 16 L (22-30) mmol/L BUN 45 H (9-20) mg/dL Creatinine 3.11 H (0.66-1.25) mg/dL Glucose 123 H (74-99) mg/dL Calcium 9.9 (8.4-10.2) mg/dL AST 16 L (17-59) U/L ALT 19 L (21-72) U/L Alkaline Phosphatase 101 (38-126) U/L Total Protein 6.5 (6.3-8.2) g/dL Albumin 4.0 (3.5-5.0) g/dL Thyroid panel 10/05/18 Range/Units 21:30 TSH 2.020 (0.465-4.680) mIU/L Calcium panel 10/05/18 Range/Units 21:30 Calcium 9.9 (8.4-10.2) mg/dL Albumin 4.0 (3.5-5.0) g/dL Pituitary panel 10/05/18 Range/Units 21:30 Sodium 139 (137-145) mmol/L Potassium 4.3 (3.5-5.1) mmol/L Chloride 107 (98-107) mmol/L Carbon Dioxide 16 L (22-30) mmol/L BUN 45 H (9-20) mg/dL Creatinine 3.11 H (0.66-1.25) mg/dL Glucose 123 H (74-99) mg/dL Calcium 9.9 (8.4-10.2) mg/dL TSH 2.020 (0.465-4.680) mIU/L Adrenal panel 10/05/18 Range/Units 21:30 Sodium 139 (137-145) mmol/L Potassium 4.3 (3.5-5.1) mmol/L Chloride 107 (98-107) mmol/L Carbon Dioxide 16 L (22-30) mmol/L BUN 45 H (9-20) mg/dL Creatinine 3.11 H (0.66-1.25) mg/dL Glucose 123 H (74-99) mg/dL Calcium 9.9 (8.4-10.2) mg/dL Total Bilirubin 1.0 (0.2-1.3) mg/dL AST 16 L (17-59) U/L ALT 19 L (21-72) U/L Alkaline Phosphatase 101 (38-126) U/L Total Protein 6.5 (6.3-8.2) g/dL Albumin 4.0 (3.5-5.0) g/dL - Imaging CT scan - abdomen: image reviewed Assessment and Plan (1) Perinephric hematoma Narrative/Plan: I'm in agreement that the computed tomography scan suggests a possible left perinephric hematoma which could occur spontaneously due to the patient's severe thrombocytopenia. This would explain his anemia as well. The patient has no left flank or abdominal pain which is atypical for an acute bleed however. The other possibility is that the fluid collection adjacent to the left kidney is somehow related to the multiple left chest tubes and pleural effusion which had been treated last month. The patient says that he frequently requires blood and platelet transfusion related to treatment of his multiple myeloma and it is possible that his anemia is on this basis. I'm in agreement with close monitoring of the patient's hemoglobin and platelet count. If his hemoglobin falls rapidly a repeat computed tomography scan should be considered. The patient was noted to have uric acid crystals in his urine and a relatively acidic urine pH. In view of his acute renal failure and metabolic acidosis it would be reasonable to give him IV bicarbonate to reduce the likelihood of uric acid nephropathy. Current Visit: Yes Status: Acute Code(s): S37.019A - MINOR CONTUSION OF UNSPECIFIED KIDNEY, INITIAL ENCOUNTER SNOMED Code(s): 516245417
--- NOTE | 2018-10-06 10:23 | P.GSCN ---
History of Present Illness Consult date: 10/06/18 Reason for Consult: Perirenal hematoma History of present illness: I was contacted by the ER last night after the patient presented with complaints of dehydration nausea vomiting. Patient had a CAT scan performed which showed some hemorrhage around the left kidney. Patient denies abdominal pain. Patient has advanced melanoma. He is hungry. Decreased bowel function. Urology also consulted. Platelet level was 6 last night up to 46 today. Hemoglobin today 6.1. Review of Systems The patient denies any acute changes in vision or hearing, no dysphagia or odynophagia, no chest pain, no dysuria or hematuria, no headache, no runny nose, no rectal bleeding or melena Past Medical History Past Medical History: Coronary Artery Disease (CAD), Cancer, COPD, GERD/Reflux, Myocardial Infarction ([place]), Pneumonia Additional Past Medical History / Comment(s): 2009 diagnosed with multiple myeloma-tx with chemo and in 2010 had stem cell transplant, recently found L hilar mass-has had it biopsied and awaiting results, pt states he is on HTN med and cholesterol medications since his MIs prophylactically, gastric ulcer years ago, low back pain, neuropathy bilateral legs/feet since chemo for multiple myeloma treated, sinus problems. Last Myocardial Infarction Date:: 01/09/14, FEB 2005 History of Any Multi-Drug Resistant Organisms: None Reported Past Surgical History: Heart Catheterization, Heart Catheterization With Stent Additional Past Surgical History / Comment(s): 2011 Stem cell transplant, multiple bone marrow bxs, 08/08/18 and 08/16/18 bronchoscopies/biopsies/needle aspiration, EGD/colonoscopy. Pleural drainage system in place Past Anesthesia/Blood Transfusion Reactions: No Reported Reaction Additional Past Anesthesia/Blood Transfusion Reaction / Comm: Pt states he received blood in past without reaction. Date of Last Stent Placement:: 01/09/14 Past Psychological History: Anxiety Smoking Status: Former smoker Past Alcohol Use History: None Reported Past Drug Use History: None Reported - Past Family History Father Family Medical History: Cancer Additional Family Medical History / Comment(s): LUNG CA Son(s) Family Medical History: Cancer Additional Family Medical History / Comment(s): BLADDER CA Mother Family Medical History: No Reported History Additional Family Medical History / Comment(s): Mother is healthy and is 86yrs old. Medications and Allergies Home Medications Medication Instructions Recorded Confirmed Type Gabapentin [Neurontin] 600 mg PO TID 01/08/14 10/05/18 History Atorvastatin [Lipitor] 40 mg PO DAILY 03/24/14 10/05/18 History Acyclovir [Zovirax] 400 mg PO BID 08/06/18 10/05/18 History Cetirizine HCl [Zyrtec] 10 mg PO HS 08/06/18 10/05/18 History Lisinopril [Zestril] 2.5 mg PO DAILY 08/06/18 10/05/18 History Prochlorperazine [Compazine] 10 mg PO Q6H PRN 08/22/18 10/05/18 History Pyridoxine HCl (Vitamin B6) 100 mg PO BID 08/22/18 10/05/18 History [Vitamin B-6] oxyCODONE-APAP 10-325MG [Percocet 1 tab PO Q4H PRN 08/22/18 10/05/18 History 10-325 mg] Aspirin [Adult Low Dose Aspirin EC] 81 mg PO DAILY 10/05/18 10/05/18 History Dexamethasone 40 mg PO Q7D 10/05/18 10/05/18 History Famotidine 20 mg PO DAILY 10/05/18 10/05/18 History Ixazomib Citrate [Ninlaro] 4 mg PO Q7D 10/05/18 10/05/18 History Lenalidomide [Revlimid] 25 mg PO DAILY 10/05/18 10/05/18 History Sulfamethox-Tmp 800-160Mg [Bactrim 1 tab PO MOWEFR 10/05/18 10/05/18 History DS 800-160 mg] Allergies Allergy/AdvReac Type Severity Reaction Status Date / Time No Known Allergies Allergy Verified 10/05/18 21:51 Surgical - Exam Vital Signs Temp Pulse Resp BP Pulse Ox 98.4 F 75 18 96/54 96 10/05/18 20:48 10/05/18 20:48 10/05/18 20:48 10/05/18 20:48 10/05/18 20:48 Physical exam: General: Malnourished elderly male HEENT: Normocephalic, sclerae nonicteric Abdomen: Nontender, nondistended Extremities: Mild edema Neuro: Alert and oriented Results - Labs 10/06/18 03:10 10/05/18 21:30 Abnormal Lab Results - Last 24 Hours (Table) 10/05/18 10/05/18 10/05/18 Range/Units 21:30 21:30 21:30 WBC 2.7 L (3.8-10.6) k/uL RBC 2.13 L (4.30-5.90) m/uL Hgb 6.9 L* D (13.0-17.5) gm/dL Hct 21.7 L (39.0-53.0) % MCV 102.2 H D (80.0-100.0) fL RDW 24.2 H (11.5-15.5) % Plt Count 6 L* D (150-450) k/uL Lymphocytes # (Manual) 0.51 L (1.0-4.8) k/uL Metamyelocytes # (Man) 0.03 H (0) k/uL Carbon Dioxide 16 L (22-30) mmol/L BUN 45 H (9-20) mg/dL Creatinine 3.11 H (0.66-1.25) mg/dL Glucose 123 H (74-99) mg/dL AST 16 L (17-59) U/L ALT 19 L (21-72) U/L Urine Protein 1+ H (Negative) Urine Ketones 1+ H (Negative) Urine Blood Large H (Negative) Urine RBC >182 H (0-5) /hpf Urine WBC 80 H (0-5) /hpf Uric Acid Crystals Many H (None) /hpf Urine Mucus Rare H (None) /hpf Crossmatch 10/05/18 10/06/18 Range/Units 23:30 03:10 WBC 1.9 L (3.8-10.6) k/uL RBC 1.98 L (4.30-5.90) m/uL Hgb 6.1 L* (13.0-17.5) gm/dL Hct 19.4 L* (39.0-53.0) % MCV (80.0-100.0) fL RDW 23.7 H (11.5-15.5) % Plt Count 46 L D (150-450) k/uL Lymphocytes # (Manual) (1.0-4.8) k/uL Metamyelocytes # (Man) (0) k/uL Carbon Dioxide (22-30) mmol/L BUN (9-20) mg/dL Creatinine (0.66-1.25) mg/dL Glucose (74-99) mg/dL AST (17-59) U/L ALT (21-72) U/L Urine Protein (Negative) Urine Ketones (Negative) Urine Blood (Negative) Urine RBC (0-5) /hpf Urine WBC (0-5) /hpf Uric Acid Crystals (None) /hpf Urine Mucus (None) /hpf Crossmatch See Detail Microbiology - Last 24 Hours (Table) 10/05/18 21:30 Urine Culture - Preliminary Urine,Voided Diabetes panel 10/05/18 Range/Units 21:30 Sodium 139 (137-145) mmol/L Potassium 4.3 (3.5-5.1) mmol/L Chloride 107 (98-107) mmol/L Carbon Dioxide 16 L (22-30) mmol/L BUN 45 H (9-20) mg/dL Creatinine 3.11 H (0.66-1.25) mg/dL Glucose 123 H (74-99) mg/dL Calcium 9.9 (8.4-10.2) mg/dL AST 16 L (17-59) U/L ALT 19 L (21-72) U/L Alkaline Phosphatase 101 (38-126) U/L Total Protein 6.5 (6.3-8.2) g/dL Albumin 4.0 (3.5-5.0) g/dL Thyroid panel 10/05/18 Range/Units 21:30 TSH 2.020 (0.465-4.680) mIU/L Calcium panel 10/05/18 Range/Units 21:30 Calcium 9.9 (8.4-10.2) mg/dL Albumin 4.0 (3.5-5.0) g/dL Pituitary panel 10/05/18 Range/Units 21:30 Sodium 139 (137-145) mmol/L Potassium 4.3 (3.5-5.1) mmol/L Chloride 107 (98-107) mmol/L Carbon Dioxide 16 L (22-30) mmol/L BUN 45 H (9-20) mg/dL Creatinine 3.11 H (0.66-1.25) mg/dL Glucose 123 H (74-99) mg/dL Calcium 9.9 (8.4-10.2) mg/dL TSH 2.020 (0.465-4.680) mIU/L Adrenal panel 10/05/18 Range/Units 21:30 Sodium 139 (137-145) mmol/L Potassium 4.3 (3.5-5.1) mmol/L Chloride 107 (98-107) mmol/L Carbon Dioxide 16 L (22-30) mmol/L BUN 45 H (9-20) mg/dL Creatinine 3.11 H (0.66-1.25) mg/dL Glucose 123 H (74-99) mg/dL Calcium 9.9 (8.4-10.2) mg/dL Total Bilirubin 1.0 (0.2-1.3) mg/dL AST 16 L (17-59) U/L ALT 19 L (21-72) U/L Alkaline Phosphatase 101 (38-126) U/L Total Protein 6.5 (6.3-8.2) g/dL Albumin 4.0 (3.5-5.0) g/dL Assessment and Plan (1) Perinephric hematoma Narrative/Plan: Patient with spontaneous bleeding related to thrombocytopenia. Await urology evaluation. No general surgery intervention or further workup planned. We'll sign off. Please call if needed. Current Visit: Yes Status: Acute Code(s): S37.019A - MINOR CONTUSION OF UNSPECIFIED KIDNEY, INITIAL ENCOUNTER SNOMED Code(s): 254375918
--- NOTE | 2018-10-06 13:25 | P.HPIM ---
History of Present Illness 58-year-old very pleasant gentleman with known history of multiple myeloma on lenalidomide with previous cycle being in month of June, history of stem cell transplant in 2010 came in with complaints of intractable nausea vomiting unable to keep anything down. Those symptoms improved. Patient is presently on Protonix. Patient was basically admitted for the severe anemia with hemoglobin of around 6.2 and will be transfused today along with acute renal failure with creatinine going up to 3.8 baseline is around 1.1. Patient has a left-sided Pleurx catheter for recurrent pleural effusions and a left-sided lung mass patient is still having some serous drainage from that. Patient has pain issues including back pain from his compression fractures patient also has some perinephric hematoma because of which neurology evaluated the patient no further intervention from their perspective just surgery valid the patient as well patient denied any dysuria hematuria increased urinary frequency patient denied any fever chills patient denied any cough. As per the medication history patient is on Bactrim although patient denies taking Bactrim to admit to being on acyclovir. Review of Systems REVIEW OF SYSTEMS: CONSTITUTIONAL: No fever, no malaise, no fatigue. HEENT: No recent visual problems or hearing problems. Denied any sore throat. CARDIOVASCULAR: No chest pain, orthopnea, PND, no palpitations, no syncope. PULMONARY: No shortness of breath, no cough, no hemoptysis. GASTROINTESTINAL: No diarrhea, no abdominal pain. NEUROLOGICAL: No headaches, no weakness, no numbness. HEMATOLOGICAL: Denies any bleeding or petechiae. GENITOURINARY: Denies any burning micturition, frequency, or urgency. MUSCULOSKELETAL/RHEUMATOLOGICAL: Denies any joint pain, swelling, or any muscle pain. ENDOCRINE: Denies any polyuria or polydipsia. The rest of the 14-point review of systems is negative. Past Medical History Past Medical History: Coronary Artery Disease (CAD), Cancer, COPD, GERD/Reflux, Myocardial Infarction ([place]), Pneumonia Additional Past Medical History / Comment(s): 2009 diagnosed with multiple myeloma-tx with chemo and in 2010 had stem cell transplant, recently found L hilar mass-has had it biopsied and awaiting results, pt states he is on HTN med and cholesterol medications since his MIs prophylactically, gastric ulcer years ago, low back pain, neuropathy bilateral legs/feet since chemo for multiple myeloma treated, sinus problems. Last Myocardial Infarction Date:: 01/09/14, FEB 2005 History of Any Multi-Drug Resistant Organisms: None Reported Past Surgical History: Heart Catheterization, Heart Catheterization With Stent Additional Past Surgical History / Comment(s): 2011 Stem cell transplant, multiple bone marrow bxs, 08/08/18 and 08/16/18 bronchoscopies/biopsies/needle aspiration, EGD/colonoscopy. Pleural drainage system in place Past Anesthesia/Blood Transfusion Reactions: No Reported Reaction Additional Past Anesthesia/Blood Transfusion Reaction / Comment(s): Pt states he received blood in past without reaction. Date of Last Stent Placement:: 01/09/14 Past Psychological History: Anxiety Smoking Status: Former smoker Past Alcohol Use History: None Reported Past Drug Use History: None Reported - Past Family History Father Family Medical History: Cancer Additional Family Medical History / Comment(s): LUNG CA Son(s) Family Medical History: Cancer Additional Family Medical History / Comment(s): BLADDER CA Mother Family Medical History: No Reported History Additional Family Medical History / Comment(s): Mother is healthy and is 86yrs old. Medications and Allergies Home Medications Medication Instructions Recorded Confirmed Type Gabapentin [Neurontin] 600 mg PO TID 01/08/14 10/05/18 History Atorvastatin [Lipitor] 40 mg PO DAILY 03/24/14 10/05/18 History Acyclovir [Zovirax] 400 mg PO BID 08/06/18 10/05/18 History Cetirizine HCl [Zyrtec] 10 mg PO HS 08/06/18 10/05/18 History Lisinopril [Zestril] 2.5 mg PO DAILY 08/06/18 10/05/18 History Prochlorperazine [Compazine] 10 mg PO Q6H PRN 08/22/18 10/05/18 History Pyridoxine HCl (Vitamin B6) 100 mg PO BID 08/22/18 10/05/18 History [Vitamin B-6] oxyCODONE-APAP 10-325MG [Percocet 1 tab PO Q4H PRN 08/22/18 10/05/18 History 10-325 mg] Aspirin [Adult Low Dose Aspirin EC] 81 mg PO DAILY 10/05/18 10/05/18 History Dexamethasone 40 mg PO Q7D 10/05/18 10/05/18 History Famotidine 20 mg PO DAILY 10/05/18 10/05/18 History Ixazomib Citrate [Ninlaro] 4 mg PO Q7D 10/05/18 10/05/18 History Lenalidomide [Revlimid] 25 mg PO DAILY 10/05/18 10/05/18 History Sulfamethox-Tmp 800-160Mg [Bactrim 1 tab PO MOWEFR 10/05/18 10/05/18 History DS 800-160 mg] Allergies Allergy/AdvReac Type Severity Reaction Status Date / Time No Known Allergies Allergy Verified 10/05/18 21:51 Physical Exam Vitals: Vital Signs Temp Pulse Pulse Resp BP BP Pulse Ox 10/06/18 12:00 97.6 F 62 18 121/70 94 L 10/06/18 08:01 97.0 F L 64 18 109/60 10/06/18 07:41 97.0 F L 64 18 109/60 93 L 10/06/18 06:07 97.1 F L 64 18 99/57 91 L 10/06/18 05:37 97.2 F L 64 18 104/58 93 L 10/06/18 05:27 97.1 F L 65 18 105/56 93 L 10/06/18 04:04 18 10/06/18 04:00 98.1 F 68 18 109/61 95 10/06/18 03:37 68 19 112/57 96 10/06/18 03:00 68 103/55 93 L 10/06/18 02:23 98.1 F 68 18 112/57 95 10/06/18 02:00 68 100/59 95 10/06/18 01:28 98.2 F 71 19 104/56 96 10/06/18 01:00 73 100/60 97 10/06/18 00:58 98.5 F 71 19 100/60 97 10/06/18 00:48 98.4 F 72 18 110/55 98 10/06/18 00:43 98.5 F 73 19 98/54 95 10/06/18 00:00 72 117/65 96 10/05/18 23:25 68 19 117/65 97 10/05/18 23:00 71 111/50 96 10/05/18 22:00 24 123/59 98 10/05/18 21:39 76 12 97 10/05/18 20:48 98.4 F 75 18 96/54 96 Intake and Output 10/05/18 10/06/18 10/06/18 22:59 06:59 14:59 Intake Total 513 0 Output Total 325 100 Balance 188 -100 Intake: Blood Product 513 0 Platelet Pheresis Acda1 203 Unit [id number] Rc As-1 Unit 310 [id number] Rc As-1 Unit 0 0 [id number] Output: Urine 325 100 Other: Voiding Method Urinal # Voids 1 Weight 66.678 kg 66 kg PHYSICAL EXAMINATION: GENERAL: The patient is alert and oriented x3, not in any acute distress. Well developed, well nourished. HEENT: Pupils are round and equally reacting to light. EOMI. No scleral icterus. Does have conjunctival pallor. Normocephalic, atraumatic. No pharyngeal erythema. No thyromegaly. CARDIOVASCULAR: S1 and S2 present. No murmurs, rubs, or gallops. PULMONARY: Chest is clear to auscultation, no wheezing or crackles. Left-sided Pleurx catheter ABDOMEN: Soft, nontender, nondistended, normoactive bowel sounds. No palpable organomegaly. MUSCULOSKELETAL: No joint swelling or deformity. EXTREMITIES: No cyanosis, clubbing, or pedal edema. NEUROLOGICAL: Gross neurological examination did not reveal any focal deficits. SKIN: No rashes. Results CBC & Chem 7: 10/06/18 03:10 10/05/18 21:30 Labs: Abnormal Lab Results - Last 24 Hours (Table) 10/05/18 10/05/18 10/05/18 Range/Units 21:30 21:30 21:30 WBC 2.7 L (3.8-10.6) k/uL RBC 2.13 L (4.30-5.90) m/uL Hgb 6.9 L* D (13.0-17.5) gm/dL Hct 21.7 L (39.0-53.0) % MCV 102.2 H D (80.0-100.0) fL RDW 24.2 H (11.5-15.5) % Plt Count 6 L* D (150-450) k/uL Lymphocytes # (Manual) 0.51 L (1.0-4.8) k/uL Metamyelocytes # (Man) 0.03 H (0) k/uL Carbon Dioxide 16 L (22-30) mmol/L BUN 45 H (9-20) mg/dL Creatinine 3.11 H (0.66-1.25) mg/dL Glucose 123 H (74-99) mg/dL AST 16 L (17-59) U/L ALT 19 L (21-72) U/L Urine Protein 1+ H (Negative) Urine Ketones 1+ H (Negative) Urine Blood Large H (Negative) Urine RBC >182 H (0-5) /hpf Urine WBC 80 H (0-5) /hpf Uric Acid Crystals Many H (None) /hpf Urine Mucus Rare H (None) /hpf Crossmatch 10/05/18 10/06/18 Range/Units 23:30 03:10 WBC 1.9 L (3.8-10.6) k/uL RBC 1.98 L (4.30-5.90) m/uL Hgb 6.1 L* (13.0-17.5) gm/dL Hct 19.4 L* (39.0-53.0) % MCV (80.0-100.0) fL RDW 23.7 H (11.5-15.5) % Plt Count 46 L D (150-450) k/uL Lymphocytes # (Manual) (1.0-4.8) k/uL Metamyelocytes # (Man) (0) k/uL Carbon Dioxide (22-30) mmol/L BUN (9-20) mg/dL Creatinine (0.66-1.25) mg/dL Glucose (74-99) mg/dL AST (17-59) U/L ALT (21-72) U/L Urine Protein (Negative) Urine Ketones (Negative) Urine Blood (Negative) Urine RBC (0-5) /hpf Urine WBC (0-5) /hpf Uric Acid Crystals (None) /hpf Urine Mucus (None) /hpf Crossmatch See Detail Microbiology - Last 24 Hours (Table) 10/05/18 21:30 Urine Culture - Preliminary Urine,Voided Thrombosis Risk Factor Assmnt - Choose All That Apply Any of the Below Risk Factors Present?: Yes Each Factor Represents 1 point: Abnormal pulmonary function (COPD), Medical pt on bed rest Other Risk Factors: Yes Each Risk Factor Represents 2 Points: Age 61-74 years, Malignancy Other congenital or acquired thrombophilia - If yes, enter type in comment: No Thrombosis Risk Factor Assessment Total Risk Factor Score: 6 Thrombosis Risk Factor Assessment Level: High Risk Assessment and Plan Plan: -Acute. Renal failure multifactorial including prerenal azotemia from nausea vomiting severe intravascular volume depletion patient will be started and continued on IV fluids nephrotoxic agents like lisinopril will be held. We will also change his opiate medications for pain because of her acute renal failure patient is presently receiving Dilaudid because of that reason. Acute tubular from multiple myeloma cannot be ruled out and if he is on Bactrim that contributes to his renal failure as well. We will obtain urine random sodium urine random creatinine and nephrology was consulted. -Recurrent pleural effusions the left-sided Pleurx catheter: Patient probably was having malignant effusions will continue with the left-sided Pleurx catheter and pulmonary will be consulted -Multiple myeloma with the severe anemia secondary to multiple myeloma patient will receive blood transfusion and oncology will evaluated the patient -Hypertension -hyperlipidemia -Metastatic disease to the bone: Pain management as mentioned above -Perinephric hematoma conservative management patient cannot be in any form of glargine DVT prophylaxis because of this reason and platelet count -Pancytopenia: Secondary to multiple myeloma -Coronary artery disease -COPD -Gastroesophageal reflux disease
[2018-10-06] MEDS ORDERED: ONDANSETRON 4 MG/2 ML VIAL IVP PRN (15:04)
[2018-10-06] MEDS: GABAPENTIN 100 MG CAP PO SCH ×2 (15:44→21:24)
[2018-10-06] MEDS: SODIUM BICARBONATE TAB 650 MG TAB PO SCH ×2 (15:44→21:24)
--- NOTE | 2018-10-06 15:50 | P.CNPUL ---
History of Present Illness Consult date: 10/06/18 Chief complaint: History of empyema History of present illness: 58-year-old male patient with known history of multiple myeloma who arrived yesterday to the emergency department because of nausea, emesis, a few days duration. The patient was unable to hold down any liquids. He was seen by home care and he was advised to come in to the emergency department. He is known to have multiple myeloma and has undergone previous bone marrow transplantation. The patient is very well-known to me and I was involved in his care as the patient had a left upper lobe opacity that was thought to be related to malignancy. The patient had an extensive workup with to biopsy that came back negative for malignancy. Subsequently developed a left-sided pleural effusion and the fluid was drained was consistent with empyema. He was transferred to [facility] where he underwent a thoracotomy with decortication. A Pleurx catheter was inserted. Cultures came back all negative. He was treated with antibiotics and ultimately was discharged home with a Pleurx catheter on the left. This surgical wound site is dry clean and intact. Dmitri are still in place. The chest x-ray shows improvement in the left upper lobe consolidation with some residual changes and left lower lobe. The output from the chest tube has been diminishing slowly and the last drainage that the patient had was around 24 hours ago and the patient drained only 20 mL of material. He has no fever. He has no chills. He has been doing well until he started having these episodes of nausea and emesis. In the emergency department, the patient was found to be pancytopenic. His white cell count was at 1.9 with hemoglobin of 6.9 and a platelet count of 6. Based on this, the patient was ordered to receive a total of 2 units of packed RBC and 2 units of platelets. The patient got his platelet transfusion and the platelet count came up to 46. His hemoglobin is at 6.1 and the patient is awaiting his packed RBC transfusion. Note that the patient had a CAT scan of the abdomen and pelvis that showed evidence of a left perirenal hemorrhage along the left anterior upper the areaextending adjacent to the left kidney and left renal vein. This pattern renal hemorrhage is of a uncertain etiology and there is also a low- density collection along the left lateral pain renal. There was evidence of multiple lower thoracic and lumbar vertebral compression fractures and some of which appeared to be acute. The left lower lobe hemithorax pleural collection was again seen and the patient had a indwelling Pleurx catheter in place. There was some gas collection related to the catheter insertion. This was inserted originally due to concerns of empyema. The patient is currently receiving IV fluids at the rate of 125 mL an hour. Patient also presented with acute kidney injury. His creatinine was up to 3.1. LFTs are within normal limits. He had a component of non-anion gap metabolic acidosis. Review of Systems Constitutional: Reports chronic pain, Reports weakness, Reports weight loss Eyes: denies blurred vision, denies decreased vision Ears: deny: decreased hearing Ears, nose, mouth and throat: Denies headache, Denies sore throat Cardiovascular: Reports dyspnea on exertion, Reports shortness of breath Respiratory: Reports cough, Reports dyspnea, Reports pain on inspiration, Reports pleurisy Gastrointestinal: Denies abdominal pain, reports nausea and vomiting and inability to keep any oral material. Genitourinary: Reports as per HPI Musculoskeletal: Reports as per HPI Integumentary: Denies pruritus, Denies rash Neurological: Reports gait dysfunction, Reports weakness Psychiatric: Reports anxiety Endocrine: Denies fatigue, Denies weight change Hematologic/Lymphatic: Reports as per HPI Allergic/Immunologic: Reports as per HPI Past Medical History Past Medical History: Coronary Artery Disease (CAD), Cancer, COPD, GERD/Reflux, Myocardial Infarction ([place]), Pneumonia Additional Past Medical History / Comment(s): 2009 diagnosed with multiple myeloma-tx with chemo and in 2010 had stem cell transplant, recently found L hilar mass-has had it biopsied and awaiting results, pt states he is on HTN med and cholesterol medications since his MIs prophylactically, gastric ulcer years ago, low back pain, neuropathy bilateral legs/feet since chemo for multiple myeloma treated, sinus problems. Last Myocardial Infarction Date:: 01/09/14, FEB 2005 History of Any Multi-Drug Resistant Organisms: None Reported Past Surgical History: Heart Catheterization, Heart Catheterization With Stent Additional Past Surgical History / Comment(s): 2011 Stem cell transplant, mult iple bone marrow bxs, 08/08/18 and 08/16/18 bronchoscopies/biopsies/needle aspiration, EGD/colonoscopy. Pleural drainage system in place Past Anesthesia/Blood Transfusion Reactions: No Reported Reaction Additional Past Anesthesia/Blood Transfusion Reaction / Comment(s): Pt states he received blood in past without reaction. Date of Last Stent Placement:: 01/09/14 Past Psychological History: Anxiety Smoking Status: Former smoker Past Alcohol Use History: None Reported Past Drug Use History: None Reported - Past Family History Father Family Medical History: Cancer Additional Family Medical History / Comment(s): LUNG CA Son(s) Family Medical History: Cancer Additional Family Medical History / Comment(s): BLADDER CA Mother Family Medical History: No Reported History Additional Family Medical History / Comment(s): Mother is healthy and is 86yrs old. Medications and Allergies Home Medications Medication Instructions Recorded Confirmed Type Gabapentin [Neurontin] 600 mg PO TID 01/08/14 10/05/18 History Atorvastatin [Lipitor] 40 mg PO DAILY 03/24/14 10/05/18 History Acyclovir [Zovirax] 400 mg PO BID 08/06/18 10/05/18 History Cetirizine HCl [Zyrtec] 10 mg PO HS 08/06/18 10/05/18 History Lisinopril [Zestril] 2.5 mg PO DAILY 08/06/18 10/05/18 History Prochlorperazine [Compazine] 10 mg PO Q6H PRN 08/22/18 10/05/18 History Pyridoxine HCl (Vitamin B6) 100 mg PO BID 08/22/18 10/05/18 History [Vitamin B-6] oxyCODONE-APAP 10-325MG [Percocet 1 tab PO Q4H PRN 08/22/18 10/05/18 History 10-325 mg] Aspirin [Adult Low Dose Aspirin EC] 81 mg PO DAILY 10/05/18 10/05/18 History Dexamethasone 40 mg PO Q7D 10/05/18 10/05/18 History Famotidine 20 mg PO DAILY 10/05/18 10/05/18 History Ixazomib Citrate [Ninlaro] 4 mg PO Q7D 10/05/18 10/05/18 History Lenalidomide [Revlimid] 25 mg PO DAILY 10/05/18 10/05/18 History Sulfamethox-Tmp 800-160Mg [Bactrim 1 tab PO MOWEFR 10/05/18 10/05/18 History DS 800-160 mg] Allergies Allergy/AdvReac Type Severity Reaction Status Date / Time No Known Allergies Allergy Verified 10/05/18 21:51 Physical Exam Vitals: Vital Signs Temp Pulse Pulse Resp BP BP Pulse Ox 10/06/18 15:38 98.2 F 57 L 18 118/69 97 10/06/18 15:34 97.2 F L 61 18 118/69 97 10/06/18 12:00 97.6 F 62 18 121/70 94 L 10/06/18 08:01 97.0 F L 64 18 109/60 10/06/18 07:41 97.0 F L 64 18 109/60 93 L 10/06/18 06:07 97.1 F L 64 18 99/57 91 L 10/06/18 05:37 97.2 F L 64 18 104/58 93 L 10/06/18 05:27 97.1 F L 65 18 105/56 93 L 10/06/18 04:04 18 10/06/18 04:00 98.1 F 68 18 109/61 95 10/06/18 03:37 68 19 112/57 96 10/06/18 03:00 68 103/55 93 L 10/06/18 02:23 98.1 F 68 18 112/57 95 10/06/18 02:00 68 100/59 95 10/06/18 01:28 98.2 F 71 19 104/56 96 10/06/18 01:00 73 100/60 97 10/06/18 00:58 98.5 F 71 19 100/60 97 10/06/18 00:48 98.4 F 72 18 110/55 98 10/06/18 00:43 98.5 F 73 19 98/54 95 10/06/18 00:00 72 117/65 96 10/05/18 23:25 68 19 117/65 97 10/05/18 23:00 71 111/50 96 10/05/18 22:00 24 123/59 98 10/05/18 21:39 76 12 97 10/05/18 20:48 98.4 F 75 18 96/54 96 Intake and Output 10/06/18 10/06/18 10/06/18 06:59 14:59 22:59 Intake Total 513 0 0 Output Total 325 100 Balance 188 -100 0 Intake: Blood Product 513 0 0 Platelet Pheresis Acda1 203 Unit [id number] Platelet Pheresis Acda2 0 Unit [id number] Rc As-1 Unit 310 [id number] Rc As-1 Unit 0 0 [id number] Output: Urine 325 100 Other: Voiding Method Urinal # Voids 1 Weight 66 kg GENERAL EXAM: Alert, and oriented 3. In a significant amount of discomfort in the chest and lower extremities. The patient is currently on room air. The patient has lost significant amount of weight and is calm and comfortable in his following commands and answering questions appropriately. No signs of any r espiratory distress. The patient looks pale. No jaundice. HEAD: Normocephalic. EYES: Normal reaction of pupils, equal size. NOSE: Clear with pink turbinates. THROAT: No erythema or exudates. NECK: No masses, no JVD. CHEST: No chest wall deformity. LUNGS: Patient diminished breath on the left lung base and the patient has a Pleurx catheter in the left hemithorax. CVS: S1 and S2 normal with no audible murmur, regular rhythm. ABDOMEN: No hepatosplenomegaly, normal bowel sounds, no guarding or rigidity. SPINE: No scoliosis or deformity SKIN: No rashes CENTRAL NERVOUS SYSTEM: No focal deficits, tone is normal in all 4 extremities. EXTREMITIES: There is no peripheral edema. No clubbing, no cyanosis. Peripheral pulses are intact. Results - Laboratory Findings CBC and BMP: 10/06/18 03:10 10/05/18 21:30 PT/INR, D-dimer PT 10.8 sec (9.0-12.0) 10/05/18 21:30 INR 1.0 (<1.2) 10/05/18 21:30 Abnormal lab findings: Abnormal Labs 10/05/18 10/05/18 10/05/18 21:30 21:30 21:30 WBC 2.7 L RBC 2.13 L Hgb 6.9 L* D Hct 21.7 L MCV 102.2 H D RDW 24.2 H Plt Count 6 L* D Lymphocytes # (Manual) 0.51 L Metamyelocytes # (Man) 0.03 H Carbon Dioxide 16 L BUN 45 H Creatinine 3.11 H Glucose 123 H Phosphorus AST 16 L ALT 19 L Urine Protein 1+ H Urine Ketones 1+ H Urine Blood Large H Urine RBC >182 H Urine WBC 80 H Uric Acid Crystals Many H Urine Mucus Rare H Crossmatch 10/05/18 10/06/18 10/06/18 23:30 03:10 13:10 WBC 1.9 L RBC 1.98 L Hgb 6.1 L* Hct 19.4 L* MCV RDW 23.7 H Plt Count 46 L D Lymphocytes # (Manual) Metamyelocytes # (Man) Carbon Dioxide BUN Creatinine Glucose Phosphorus 5.6 H AST ALT Urine Protein Urine Ketones Urine Blood Urine RBC Urine WBC Uric Acid Crystals Urine Mucus Crossmatch See Detail - Diagnostic Findings Chest x-ray: image reviewed Assessment and Plan Plan: 1 nausea and emesis with intravascular volume depletion/dehydration and development of an acute kidney injury, currently on IV fluids 2 acute kidney injury secondary to above 3 acute left perirenal hemorrhage along the left anterior perirenal space extending to the left kidney and left renal vein. This this is of a unknown elías ology and the patient could've bled spontaneously. The patient is pancytopenic and the plated count was extremely low at the time of admission 4 history of multiple myeloma post bone marrow transplantation 5 pancytopenia with a white cell count of 1.9, platelet count of 6 and a hemoglobin of 6.1 at time of admission, awaiting hematology consultation 6 left lung empyema without evidence of any malignancy. The patient is undergone thoracotomy with decortication and the cultures of been negative and the patient has a Pleurx catheter in place output of which is minimal at this point in time 7 acute hypoxic respiratory failure, recovered 8 COPD 9 hypertension 10 hyperlipidemia 11 known history of coronary artery disease 12 previous history of bone marrow transplantation and the patient undergone stem cell transplant in 2010 13 chronic back pain and myeloma related lytic lesions throughout the skeletal system 14 peripheral neuropathy 15 peptic ulcer disease 16 previous history of cardiac catheterization and insertion of coronary stent Plan Start with urology regarding the perinephric hematoma. We will transfuse 2 units of packed RBC. Platelet this patient has been given. Consult with hematology oncology regarding the pancytopenia. Will monitor the left-sided pleural effusion. Findings are improved considerably. Pleurx catheter is draining minimal amount of fluid and will continue draining at 3 times a week as recommended. No need for antibiotics. The patient is afebrile hemodynamically stable and currently on room air oxygen. Continue hydration. Monitor renal function. Oral bicarb has been added. Pain control with Dilaudid. We'll continue to follow.
[2018-10-06 16:19] LABS: Anisocytosis Moderate; HCT 26.4 % (39.0-53.0); Hypochromasia Moderate; MCHC 30.5 g/dL (31.0-37.0); MCV 101.6 fL (80.0-100.0); Macrocytosis Moderate; Mean Platelet Volume 8.9; Poikilocytosis Slight; RDW 22.8 % (11.5-15.5); WBC 2.3 k/uL (3.8-10.6)
[2018-10-06 16:20] LABS: Platelet Count 28 k/uL (150-450)
[2018-10-06 16:24] LABS: HGB 8.1 gm/dL (13.0-17.5)
[2018-10-06 16:39] LABS: Eosinophils # (M) 0.02 k/uL (0-0.7); Lymphocytes # (M) 0.37 k/uL (1.0-4.8); Monocytes # (M) 0.14 k/uL (0-1.0); Neutrophils # (M) 1.77 k/uL (1.3-7.7); Neutrophils % (M) 77 %; Nucleated Red Blood Cells 0 /100 WBC (0-0); Total Cells Counted 100
[2018-10-06 17:14] LABS: Calcium 9.2 mg/dL (8.4-10.2); Potassium 4.5 mmol/L (3.5-5.1)
--- NOTE | 2018-10-06 18:11 | CONS ---
CONSULTATION REASON FOR CONSULT: Renal failure. HISTORY OF PRESENT ILLNESS: Patient is a 63-year-old male who was admitted to the hospital with complaints of vomiting, weakness, not feeling well. The patient denies any prior history of kidney diseases. He has a history of multiple myeloma and is maintained on Revlimid. The patient has a history of bone marrow stem cell transplant in 2010. The serum creatinine was 3.1 mg/dL on admission. Previous creatinine was 1.02 on 08/31/2018. The patient has been voiding. Abdominal CT done on admission shows evidence of acute left perirenal hemorrhage along the left anterior perirenal space. There was small nonobstructing bilateral renal calculi. Patient has been evaluated by Urology and there are no plans for intervention at this time. Currently patient is asymptomatic. His hemoglobin is stable. It looks like he has had a perianal bleed on the left side. Patient's platelet count was 6000 on admission. He has been transfused packed RBCs and platelets. His platelets are now 46,000. The patient was on AMBIKA inhibitors at home. He has not been on any anticoagulation. PAST MEDICAL HISTORY: Multiple myeloma status post stem cell transplant 2010, maintained on chemotherapy; history of coronary artery disease, COPD, gastroesophageal reflux disease, history of pneumonia, history of left hilar mass recently biopsied, hypercholesterolemia. PAST SURGICAL HISTORY: Cardiac catheterization, coronary stent placement, stem cell transplant, bone marrow biopsies, bronchoscopies, EGD, colonoscopies. SOCIAL HISTORY: Patient is a former smoker. No history of drug abuse or alcohol abuse. MEDICATIONS: Medications at home prior to admission included Neurontin, Lipitor, Zovirax, Zyrtec, Zestril, Compazine, dexamethasone, Pepcid, Revlimid, Ninlaro, Bactrim. ALLERGIES: None. REVIEW OF SYSTEMS: As per HPI. Other systems negative. PHYSICAL EXAMINATION: Patient is comfortable, awake, alert, oriented x3. He is not in any acute distress. Blood pressure was 118/69, heart rate 57 per minute. He is afebrile. Examination of the heart S1, S2. Examination lungs bilateral breath sounds are heard. Abdomen is soft, nontender. Examination lower extremities shows no evidence of edema. STUDIO ASSISTANT exam is grossly intact. LABS: From yesterday show sodium 139, potassium 4.3, CO2 of 16, BUN 45, serum creatinine 3.1. Hemoglobin was 6.1 early this morning. The UA shows 1+ ketones, 1+ protein, RBCs more than 182. ASSESSMENT: 1. Acute kidney injury associated with volume depletion, maintained on IV fluids. Continue to hold off on AMBIKA inhibitors. Repeat labs today. 2. Left perirenal hemorrhage associated with severe thrombocytopenia. Repeat CBC today. The patient has been evaluated by Urology. Continue to monitor for now. Currently he is asymptomatic. 3. Hyperphosphatemia associated with renal failure. Hold off on phosphate binders as renal function is expected to improve. 4. Anion gap metabolic acidosis, mainly associated with renal failure, maintained on oral sodium bicarb. 5. History of multiple myeloma with history of stem cell transplant, maintained on chemotherapy. 6. Thrombocytopenia associated with multiple myeloma and chemotherapy. 7. Anemia secondary to left perianal hemorrhage as well as bone marrow suppression from multiple myeloma/chemotherapy. 8. Hematuria associated with perirenal hemorrhage and perhaps some bleeding in the kidney. PLAN: Continue IV fluids. Continue oral sodium bicarb. Repeat labs now and then again in a.m. Continue to hold off on AMBIKA inhibitors and avoid any other nephrotoxic medications. Thank you for this consultation. We will continue to follow the patient with you during his hospitalization. MMODL / IJN: [id number] / MTDD
[2018-10-07] MEDS: HYDROmorphone 1 MG/ML 1 ML SYRINGE IVP PRN ×6 (01:28→22:19)
[2018-10-07 06:49] LABS: Anisocytosis Moderate; HCT 22.7 % (39.0-53.0); HGB 7.4 gm/dL (13.0-17.5); Hypochromasia Slight; MCH 31.7 pg (25.0-35.0); MCHC 32.6 g/dL (31.0-37.0); MCV 97.1 fL (80.0-100.0); Macrocytosis Moderate; Mean Platelet Volume 8.2; Poikilocytosis Slight; RBC 2.33 m/uL (4.30-5.90); RDW 22.7 % (11.5-15.5); WBC 2.1 k/uL (3.8-10.6)
[2018-10-07 06:59] LABS: Calcium 8.6 mg/dL (8.4-10.2); Potassium 4.2 mmol/L (3.5-5.1)
[2018-10-07 07:10] LABS: Platelet Count 33 k/uL (150-450)
[2018-10-07 07:32] LABS: Eosinophils # (M) 0.04 k/uL (0-0.7); Monocytes # (M) 0.11 k/uL (0-1.0); Myelocytes # (M) 0.02 k/uL (0); Myelocytes % 1 %; Neutrophils # (M) 1.55 k/uL (1.3-7.7); Neutrophils % (M) 74 %; Nucleated Red Blood Cells 2 /100 WBC (0-0); Total Cells Counted 200
[2018-10-07] MEDS: SODIUM BICARBONATE TAB 650 MG TAB PO SCH ×3 (08:04→21:43)
[2018-10-07] MEDS: ATORVASTATIN 40 MG TAB PO SCH (08:04)
[2018-10-07] MEDS: GABAPENTIN 100 MG CAP PO SCH ×3 (08:04→21:43)
[2018-10-07] MEDS: ACYCLOVIR 200 MG CAP PO SCH ×2 (08:14→21:43)
--- NOTE | 2018-10-07 10:57 | P.PN ---
Progress Note - Text Progress Note Date: 10/07/18 The patient is afebrile and normotensive. He says that he feels better since he has been given IV fluids. He denies any abdominal or left flank pain. White blood count is 2100. Hemoglobin is 7.4 and has fallen slightly since yesterday. Platelet count is 33,000 and has also fallen slightly. BUN/creatinine have improved with hydration and are 44/1.95. The patient continues to have some element of metabolic acidosis with a bicarb of 19. The source of the right perinephric fluid accumulation remains unclear. This could be a spontaneous hematoma related to severe thrombocytopenia however other causes cannot be excluded, especially since the patient has chronic pancytopenia and a recent problems with a left pleural effusion. If his hemoglobin remains stable today I would suggest a follow-up computed tomography scan of the abdomen tomorrow to reassess the size of the left perinephric fluid. If it remains stable in size and his hemoglobin and platelet count are acceptable then the patient might be able to be discharged.
--- NOTE | 2018-10-07 11:36 | PN ---
PROGRESS NOTE Patient is seen for followup for acute kidney injury which is mainly prerenal. Patient is maintained on IV fluids. His renal function is improving. Creatinine is down to 1.95 from 3.1 on initial admission. The patient states he is voiding. He has had good urine output. PHYSICAL EXAMINATION: Blood pressure this morning was 109/58, heart rate 73 per minute. He is afebrile. Examination of the heart S1, S2. Examination of the lungs, decreased breath sounds bases. Abdomen is soft, nontender. Examination lower extremities shows no significant edema. FORM SETTER HELPER exam is grossly intact. LAB: Show hemoglobin 7.4, sodium 142, potassium 4.2, chloride 113, BUN 44, serum creatinine 1.95. ASSESSMENT: 1. Acute kidney injury, prerenal associated with volume depletion, ongoing nausea and vomiting prior to admission, currently improving. Patient is maintained on IV fluids which I will continue. 2. Metabolic acidosis, currently non gap, maintained on oral sodium bicarb. 3. Anemia associated with left perirenal hemorrhage and possibly related to multiple myeloma/chemotherapy. 4. Severe thrombocytopenia status post platelet transfusion, currently stable. 5. Left perirenal hemorrhage, stable. 6. Hyperphosphatemia associated with renal failure. PLAN: Continue IV fluids. Continue oral sodium bicarb. Repeat labs in a.m. Avoid nephrotoxic medications. MMODL / IJN: [id number] /
--- NOTE | 2018-10-07 13:26 | P.PN ---
Subjective Progress Note Date: 10/07/18 58-year-old male patient with known history of multiple myeloma who arrived yesterday to the emergency department because of nausea, emesis, a few days duration. The patient was unable to hold down any liquids. He was seen by home care and he was advised to come in to the emergency department. He is known to have multiple myeloma and has undergone previous bone marrow transplantation. The patient is very well-known to me and I was involved in his care as the patient had a left upper lobe opacity that was thought to be related to malignancy. The patient had an extensive workup with to biopsy that came back negative for malignancy. Subsequently developed a left-sided pleural effusion and the fluid was drained was consistent with empyema. He was transferred to [facility] where he underwent a thoracotomy with decortication. A Pleurx catheter was inserted. Cultures came back all negative. He was treated with antibiotics and ultimately was discharged home with a Pleurx catheter on the left. This surgical wound site is dry clean and intact. [place] are still in place. The chest x-ray shows improvement in the left upper lobe consolidation with some residual changes and left lower lobe. The output from the chest tube has been diminishing slowly and the last drainage that the patient had was around 24 hours ago and the patient drained only 20 mL of material. He has no fever. He has no chills. He has been doing well until he started having these episodes of nausea and emesis. In the emergency department, the patient was found to be pancytopenic. His white cell count was at 1.9 with hemoglobin of 6.9 and a platelet count of 6. Based on this, the patient was ordered to receive a total of 2 units of packed RBC and 2 units of platelets. The patient got his platelet transfusion and the platelet count came up to 46. His hemoglobin is at 6.1 and the patient is awaiting his packed RBC transfusion. Note that the patient had a CAT scan of the abdomen and pelvis that showed evidence of a left perirenal hemorrhage along the left anterior upper the areaextending adjacent to the left kidney and left renal vein. This pattern renal hemorrhage is of a uncertain etiology and there is also a low- density collection along the left lateral pain renal. There was evidence of multiple lower thoracic and lumbar vertebral compression fractures and some of which appeared to be acute. The left lower lobe hemithorax pleural collection was again seen and the patient had a indwelling Pleurx catheter in place. There was some gas collection related to the catheter insertion. This was inserted originally due to concerns of empyema. The patient is currently receiving IV fluids at the rate of 125 mL an hour. Patient also presented with acute kidney injury. His creatinine was up to 3.1. LFTs are within normal limits. He had a component of non-anion gap metabolic acidosis. On today's evaluation of 10/07/2018, the patient is doing well and hemoglobin stable at 7.4. The platelet count is dropped down to 33,000. It has fallen slightly. The renal function is also stable at creatinine of 1.9 is improving compared to yesterday. He continues to have some mild component of metabolic acidosis with a bicarb level of 19. The patient had a spontaneous hematoma involving the right kidney. The patient has no significant hematuria. No nausea. No vomiting. No abdominal pain. No chest pain. No shortness of breath at this point in time. Her pulse ox is 94-98% on room air. He has lost considerable amount of weight over he is stable. We are still awaiting a hematology oncology evaluation regarding the pancytopenia. Objective - Vital Signs Vital signs: Vital Signs Temp 98.1 F 10/07/18 12:00 Pulse 66 10/07/18 12:00 Resp 18 10/07/18 12:00 BP 109/61 10/07/18 12:00 Pulse Ox 98 10/07/18 12:00 Intake & Output 10/06/18 10/07/18 10/07/18 18:59 06:59 18:59 Intake Total 120 2175 360 Output Total 350 725 250 Balance -230 1450 110 Weight 66.7 kg Intake: Intake, IV Titration 1375 Amount Sodium Chloride 0.9% 1, 1375 000 ml @ 125 mls/hr IV . Q8H [facility] Rx#:[id number] Oral 120 800 360 Blood Product 0 Platelet Pheresis Acda2 0 Unit [id number] Rc As-1 Unit 0 [id number] Output: Urine 350 725 250 Other: Voiding Method Urinal Urinal Urinal # Voids 1 1 - Exam GENERAL EXAM: Alert, and oriented 3. In a significant amount of discomfort in the chest and lower extremities. The patient is currently on room air. The patient has lost significant amount of weight and is calm and comfortable in his following commands and answering questions appropriately. No signs of any respiratory distress. The patient looks pale. No jaundice. HEAD: Normocephalic. EYES: Normal reaction of pupils, equal size. NOSE: Clear with pink turbinates. THROAT: No erythema or exudates. NECK: No masses, no JVD. CHEST: No chest wall deformity. LUNGS: Patient diminished breath on the left lung base and the patient has a Pleurx catheter in the left hemithorax. CVS: S1 and S2 normal with no audible murmur, regular rhythm. ABDOMEN: No hepatosplenomegaly, normal bowel sounds, no guarding or rigidity. SPINE: No scoliosis or deformity SKIN: No rashes CENTRAL NERVOUS SYSTEM: No focal deficits, tone is normal in all 4 extremities. EXTREMITIES: There is no peripheral edema. No clubbing, no cyanosis. Peripheral pulses are intact. - Labs CBC & Chem 7: 10/07/18 05:56 10/07/18 05:56 Labs: Abnormal Lab Results - Last 24 Hours (Table) 10/06/18 10/06/18 10/06/18 Range/Units 13:10 13:10 13:10 WBC 2.3 L (3.8-10.6) k/uL RBC 2.60 L (4.30-5.90) m/uL Hgb 8.1 L D (13.0-17.5) gm/dL Hct 26.4 L (39.0-53.0) % MCV 101.6 H (80.0-100.0) fL MCHC 30.5 L (31.0-37.0) g/dL RDW 22.8 H (11.5-15.5) % Plt Count 28 L (150-450) k/uL Lymphocytes # (Manual) 0.37 L (1.0-4.8) k/uL Myelocytes # (Manual) (0) k/uL Nucleated RBCs (0-0) /100 WBC Chloride 113 H (98-107) mmol/L Carbon Dioxide 17 L (22-30) mmol/L BUN 46 H (9-20) mg/dL Creatinine 2.78 H (0.66-1.25) mg/dL Phosphorus 5.6 H (2.5-4.5) mg/dL 10/07/18 10/07/18 Range/Units 05:56 05:56 WBC 2.1 L (3.8-10.6) k/uL RBC 2.33 L (4.30-5.90) m/uL Hgb 7.4 L (13.0-17.5) gm/dL Hct 22.7 L (39.0-53.0) % MCV (80.0-100.0) fL MCHC (31.0-37.0) g/dL RDW 22.7 H (11.5-15.5) % Plt Count 33 L (150-450) k/uL Lymphocytes # (Manual) 0.40 L (1.0-4.8) k/uL Myelocytes # (Manual) 0.02 H (0) k/uL Nucleated RBCs 2 H (0-0) /100 WBC Chloride 113 H (98-107) mmol/L Carbon Dioxide 19 L (22-30) mmol/L BUN 44 H (9-20) mg/dL Creatinine 1.95 H (0.66-1.25) mg/dL Phosphorus (2.5-4.5) mg/dL Microbiology - Last 24 Hours (Table) 10/05/18 21:30 Urine Culture - Final Urine,Voided Assessment and Plan Plan: 1 nausea and emesis with intravascular volume depletion/dehydration and development of an acute kidney injury, currently on IV fluids and the patient is was resuscitated and kidney function continues to improve 2 acute kidney injury secondary to above, improving with fluid resuscitation and the creatinine is down to 1.9 3 acute left perirenal hemorrhage along the left anterior perirenal space extending to the left kidney and left renal vein. This this is of a unknown etiology and the patient could've bled spontaneously. The patient is pancytopenic and the plated count was extremely low at the time of admission. This is likely a spontaneous bleed and the patient's platelet counts have improved after platelet transfusion the patient also received a packed RBC transfusion. His condition is stable. Urology is also on the case. 4 history of multiple myeloma post bone marrow transplantation 5 pancytopenia with a white cell count of 1.9, platelet count of 6 and a hemoglobin of 6.1 at time of admission, awaiting hematology consultation note that the patient got transfused with a packed RBC and platelet transfusion. 6 left lung empyema without evidence of any malignancy. 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 Attempt to drain the Pleurx catheter in the morning. Oxidation is improved. No magistral difficulties. Awaiting a hematology oncology consultation.
--- NOTE | 2018-10-07 14:41 | P.PN ---
Subjective 48-year-old admitted for acute renal failure secondary to prerenal azotemia most probably and can be multifactorial with acute tubular necrosis. Creatinine improved to 1.9 from 3.5 continued present rate of IV fluids. Patient hemoglobin was 6.2 yesterday received 1 unit of transfusion now around 7.4 patient also received the platelet transfusion for possible spontaneous bleed into the perinephric area. Patient is otherwise clinically doing well overnight events patient will be transferred out of cardiac care unit. Constitutional: Denied any fatigue denied any fever. Cardio vascular: denied any chest pain, palpitations Gastrointestinal denied any nausea vomiting Pulmonary: Denied any shortness of breath cough Neurologic denied any new focal deficits All inpatient medications were reviewed and appropriate changes in these medications as dictated in the interval history and assessment and plan. Objective - Vital Signs Vital signs: Vital Signs Temp 98.1 F 10/07/18 12:00 Pulse 66 10/07/18 12:00 Resp 18 10/07/18 12:00 BP 109/61 10/07/18 12:00 Pulse Ox 98 10/07/18 12:00 Intake & Output 10/06/18 10/07/18 10/07/18 18:59 06:59 18:59 Intake Total 421 2175 480 Output Total 350 725 250 Balance 71 1450 230 Weight 66.7 kg Intake: Intake, IV Titration 1375 Amount Sodium Chloride 0.9% 1, 1375 000 ml @ 125 mls/hr IV . Q8H [facility] Rx#:[id number] Oral 120 800 480 Blood Product 301 Platelet Pheresis Acda2 301 Unit [id number] Rc As-1 Unit 0 [id number] Output: Urine 350 725 250 Other: Voiding Method Urinal Urinal Urinal # Voids 1 1 - Exam PHYSICAL EXAMINATION: GENERAL: The patient is alert and oriented x3, not in any acute distress. Well developed, well nourished. HEENT: Pupils are round and equally reacting to light. EOMI. No scleral icterus. Does have conjunctival pallor. Normocephalic, atraumatic. No pharyngeal erythema. No thyromegaly. CARDIOVASCULAR: S1 and S2 present. No murmurs, rubs, or gallops. PULMONARY: Chest is clear to auscultation, no wheezing or crackles. Left-sided Pleurx catheter ABDOMEN: Soft, nontender, nondistended, normoactive bowel sounds. No palpable organomegaly. MUSCULOSKELETAL: No joint swelling or deformity. EXTREMITIES: No cyanosis, clubbing, or pedal edema. NEUROLOGICAL: Gross neurological examination did not reveal any focal deficits. SKIN: No rashes. - Labs CBC & Chem 7: 10/07/18 05:56 10/07/18 05:56 Labs: Abnormal Lab Results - Last 24 Hours (Table) 10/06/18 10/06/18 10/07/18 Range/Units 13:10 13:10 05:56 WBC 2.3 L 2.1 L (3.8-10.6) k/uL RBC 2.60 L 2.33 L (4.30-5.90) m/uL Hgb 8.1 L D 7.4 L (13.0-17.5) gm/dL Hct 26.4 L 22.7 L (39.0-53.0) % MCV 101.6 H (80.0-100.0) fL MCHC 30.5 L (31.0-37.0) g/dL RDW 22.8 H 22.7 H (11.5-15.5) % Plt Count 28 L 33 L (150-450) k/uL Lymphocytes # (Manual) 0.37 L 0.40 L (1.0-4.8) k/uL Myelocytes # (Manual) 0.02 H (0) k/uL Nucleated RBCs 2 H (0-0) /100 WBC Chloride 113 H (98-107) mmol/L Carbon Dioxide 17 L (22-30) mmol/L BUN 46 H (9-20) mg/dL Creatinine 2.78 H (0.66-1.25) mg/dL 10/07/18 Range/Units 05:56 WBC (3.8-10.6) k/uL RBC (4.30-5.90) m/uL Hgb (13.0-17.5) gm/dL Hct (39.0-53.0) % MCV (80.0-100.0) fL MCHC (31.0-37.0) g/dL RDW (11.5-15.5) % Plt Count (150-450) k/uL Lymphocytes # (Manual) (1.0-4.8) k/uL Myelocytes # (Manual) (0) k/uL Nucleated RBCs (0-0) /100 WBC Chloride 113 H (98-107) mmol/L Carbon Dioxide 19 L (22-30) mmol/L BUN 44 H (9-20) mg/dL Creatinine 1.95 H (0.66-1.25) mg/dL Microbiology - Last 24 Hours (Table) 10/05/18 21:30 Urine Culture - Final Urine,Voided Assessment and Plan Plan: -Acute. Renal failure multifactorial including prerenal azotemia from nausea vomiting severe intravascular volume depletion patient will be started and continued on IV fluids nephrotoxic agents like lisinopril are being held. Patient's creatinine improved 1.9 from 2.5 continue with IV fluids. -Recurrent pleural effusions the left-sided Pleurx catheter: Patient probably was having malignant effusions will continue with the left-sided Pleurx catheter and pulmonary will be consulted -Multiple myeloma with the severe anemia secondary to multiple myeloma patient will receive blood transfusion and oncology will evaluated the patient, hemoglobin improved to 7.4 -Hypertension -hyperlipidemia -Metastatic disease to the bone: Pain management as mentioned above -Perinephric hematoma conservative management patient cannot be in any form of glargine DVT prophylaxis because of this reason and platelet count -Pancytopenia: Secondary to multiple myeloma -Coronary artery disease -COPD -Gastroesophageal reflux disease
--- NOTE | 2018-10-07 15:52 | P.CONS ---
History of Present Illness - Reason for Consult Consult date: 10/07/18 Multiple Myeloma Requesting physician: Delmi Charlton - Chief Complaint Nausea and Vomiting - History of Present Illness The patient was diagnosed with non-secretory multiple myeloma in .He induction with 4 cycles of Velcade/Decadron followed by autologous stem cell transplant in .He declined maintenance revlimid. He had a repeat bone marrow biopsy at [facility] on 10/10/2011.He had a repeat bone survey in which was stable. Myeloma evalution in revealed no evidence of progression. Repeat skeletal bone survey on 10/03/2012 was stable without new changes. Repeat [place]/Lambda ratio,SPEP,CMP in 09/2012 revealed no evidence of progression. 24 hrs urine in was negative for Bence Farley proteins. He had worsening anemia in September/2017,repeat PET scan on 10/21/2017 revealed no new lesions,repeat bone marrow biopsy on 11/01/2017 revealed 60% plasma cells,normal cytogenetics,FISH was positive for t(11,14) (previously he had t(11,14) After discussiong options with him,it was decided to start ixazomib/revlimid/dex regimen (ixazomib was chosen due to less risk of neuropathy) He started ixazomib/revlimid/dex on 11/19/2017 On 06/29/2018,ixazomib/revlimid/dex were held due to significant pancytopenia. On 07/06/2018,repeat bone marrow biopsy revealed 20-30% plasma cells (as per my discussion with pathologist,it was felt relatively stable compared to prior bone marrow biopsy),FISH revealed t(11,14) translocation. On 07/28/2018,repeat PET scan revealed new osseous lesions and new large left infrahilar lung mass,bronchoscopic biopsies were negative,then he developed left pleural effusion,thoracentesis revealed empyema,the fluid recurred,he was transferred to [facility],had a very long hospital stay,had decortication of left pleural empyema,pleural biopsies were negative for malignancy,he did have a repeat CT scan of chest at [facility] on 09/17/2018 which revealed resolution of the left hilar mass,he also had MRI of the pelvis on 09/11/2018 which revealed multiple bone lesion,there was a lesion involving 50% of left femoral neck. He was just discharged from [facility],he still has PleuRx catheter,feels weak,but better,no significant hip pain but has his chronic back pain and musculokeletal pain,on percocet as needed,has lost a lot of weight related to his pneumonia and empyema. Mr. Nicholas presented to the hospital with complaints of nausea and vomiting and inability to tolerate PO intake over the past few days. He has recently been more sedative, with prolonged hospitalizations. He recently has started narcotic pain medications for pain with above incidience and left femoral neck lesions, status post 4 radiation treatments. He has not moved bowels in 4 or 5 days, and he states he just started passing gas today. CT abdomen and pelvis did not show acute etiology or obstruction. Review of Systems A 14 point review of systems assessed and completed and all negative except HPI Past Medical History Past Medical History: Coronary Artery Disease (CAD), Cancer, COPD, GERD/Reflux, Myocardial Infarction (NM), Pneumonia Additional Past Medical History / Comment(s): 2009 diagnosed with multiple myeloma-tx with chemo and in 2010 had stem cell transplant, recently found L hilar mass-has had it biopsied and awaiting results, pt states he is on HTN med and cholesterol medications since his MIs prophylactically, gastric ulcer years ago, low back pain, neuropathy bilateral legs/feet since chemo for multiple myeloma treated, sinus problems. Last Myocardial Infarction Date:: 01/09/14, FEB 2005 History of Any Multi-Drug Resistant Organisms: None Reported Past Surgical History: Heart Catheterization, Heart Catheterization With Stent Additional Past Surgical History / Comment(s): 2011 Stem cell transplant, multiple bone marrow bxs, 08/08/18 and 08/16/18 bronchoscopies/biopsies/needle aspiration, EGD/colonoscopy. Pleural drainage system in place Past Anesthesia/Blood Transfusion Reactions: No Reported Reaction Additional Past Anesthesia/Blood Transfusion Reaction / Comm: Pt states he received blood in past without reaction. Date of Last Stent Placement:: 01/09/14 Past Psychological History: Anxiety Smoking Status: Former smoker Past Alcohol Use History: None Reported Past Drug Use History: None Reported - Past Family History Father Family Medical History: Cancer Additional Family Medical History / Comment(s): LUNG CA Son(s) Family Medical History: Cancer Additional Family Medical History / Comment(s): BLADDER CA Mother Family Medical History: No Reported History Additional Family Medical History / Comment(s): Mother is healthy and is 86yrs old. Medications and Allergies Home Medications Medication Instructions Recorded Confirmed Type Gabapentin [Neurontin] 600 mg PO TID 01/08/14 10/05/18 History Atorvastatin [Lipitor] 40 mg PO DAILY 03/24/14 10/05/18 History Acyclovir [Zovirax] 400 mg PO BID 08/06/18 10/05/18 History Cetirizine HCl [Zyrtec] 10 mg PO HS 08/06/18 10/05/18 History Lisinopril [Zestril] 2.5 mg PO DAILY 08/06/18 10/05/18 History Prochlorperazine [Compazine] 10 mg PO Q6H PRN 08/22/18 10/05/18 History Pyridoxine HCl (Vitamin B6) 100 mg PO BID 08/22/18 10/05/18 History [Vitamin B-6] oxyCODONE-APAP 10-325MG [Percocet 1 tab PO Q4H PRN 08/22/18 10/05/18 History 10-325 mg] Aspirin [Adult Low Dose Aspirin EC] 81 mg PO DAILY 10/05/18 10/05/18 History Dexamethasone 40 mg PO Q7D 10/05/18 10/05/18 History Famotidine 20 mg PO DAILY 10/05/18 10/05/18 History Ixazomib Citrate [Ninlaro] 4 mg PO Q7D 10/05/18 10/05/18 History Lenalidomide [Revlimid] 25 mg PO DAILY 10/05/18 10/05/18 History Sulfamethox-Tmp 800-160Mg [Bactrim 1 tab PO MOWEFR 10/05/18 10/05/18 History DS 800-160 mg] Allergies Allergy/AdvReac Type Severity Reaction Status Date / Time No Known Allergies Allergy Verified 10/05/18 21:51 Physical Exam Vitals: Vital Signs Temp Pulse Pulse Resp BP BP Pulse Ox 10/07/18 12:00 98.1 F 66 18 109/61 98 10/07/18 08:00 98.1 F 73 18 109/58 94 L 10/07/18 03:35 62 18 10/07/18 03:33 98.2 F 62 18 115/65 95 04/14/19 00:00 98 F 65 17 110/60 98 10/06/18 20:00 98.0 F 65 17 107/59 98 10/06/18 16:14 97 F L 62 18 118/60 97 10/06/18 15:44 97 F L 59 L 18 114/65 95 10/06/18 15:38 98.2 F 57 L 18 118/69 97 Intake and Output 10/07/18 10/07/18 10/07/18 06:59 14:59 22:59 Intake Total 2175 480 Output Total 725 250 Balance 1450 230 Intake: Intake, IV Titration 1375 Amount Sodium Chloride 0.9% 1, 1375 000 ml @ 125 mls/hr IV . Q8H [facility] Rx#:[id number] Oral 800 480 Output: Urine 725 250 Other: Voiding Method Urinal Urinal # Voids 1 Weight 66.7 kg Gen: No acute distress, alert and oriented Head: NC, NT Mouth: POsitive Ya, Dry Membranes No adenopathy on palpation Lungs: Diminished bibasilar, no increased effort Abdomen: Soft, Non-tended, ND Heart: RRR, S1s2 Ext: No edema, +Pulses Neuro: No Sensory or motor deficits Results CBC & Chem 7: 10/07/18 05:56 10/07/18 05:56 Labs: Abnormal Lab Results - Last 24 Hours (Table) 10/06/18 10/06/18 10/07/18 Range/Units 13:10 13:10 05:56 WBC 2.3 L 2.1 L (3.8-10.6) k/uL RBC 2.60 L 2.33 L (4.30-5.90) m/uL Hgb 8.1 L D 7.4 L (13.0-17.5) gm/dL Hct 26.4 L 22.7 L (39.0-53.0) % MCV 101.6 H (80.0-100.0) fL MCHC 30.5 L (31.0-37.0) g/dL RDW 22.8 H 22.7 H (11.5-15.5) % Plt Count 28 L 33 L (150-450) k/uL Lymphocytes # (Manual) 0.37 L 0.40 L (1.0-4.8) k/uL Myelocytes # (Manual) 0.02 H (0) k/uL Nucleated RBCs 2 H (0-0) /100 WBC Chloride 113 H (98-107) mmol/L Carbon Dioxide 17 L (22-30) mmol/L BUN 46 H (9-20) mg/dL Creatinine 2.78 H (0.66-1.25) mg/dL 10/07/18 Range/Units 05:56 WBC (3.8-10.6) k/uL RBC (4.30-5.90) m/uL Hgb (13.0-17.5) gm/dL Hct (39.0-53.0) % MCV (80.0-100.0) fL MCHC (31.0-37.0) g/dL RDW (11.5-15.5) % Plt Count (150-450) k/uL Lymphocytes # (Manual) (1.0-4.8) k/uL Myelocytes # (Manual) (0) k/uL Nucleated RBCs (0-0) /100 WBC Chloride 113 H (98-107) mmol/L Carbon Dioxide 19 L (22-30) mmol/L BUN 44 H (9-20) mg/dL Creatinine 1.95 H (0.66-1.25) mg/dL Microbiology - Last 24 Hours (Table) 10/05/18 21:30 Urine Culture - Final Urine,Voided CT scan - abdomen: report reviewed CT scan - pelvis: report reviewed Assessment and Plan (1) Nausea & vomiting Current Visit: Yes Status: Acute Code(s): R11.2 - NAUSEA WITH VOMITING, UNSPECIFIED SNOMED Code(s): 13612390 (2) Pancytopenia Current Visit: Yes Status: Acute Code(s): D61.818 - OTHER PANCYTOPENIA SNOMED Code(s): 819741893 (3) Myeloma Current Visit: Yes Status: Chronic Priority: Medium Code(s): C90.00 - MULTIPLE MYELOMA NOT HAVING ACHIEVED REMISSION SNOMED Code(s): 387612250 Plan: Assessment and Recommendations: Multiple Myeloma: - Details per HPI - Treatment currently on hold for pancytopenia, recent progression of disease and prolonged hospital stay for decortication and empyema Pancytopenia:Secondary to Malignancy and Chemotherapy - Continue to monitor CBC - Transfusion support PRN, Hgb less than 7, PLatelets less than 10 Intractable Nausea and Vomiting: - Likely secondary to constipation and ya - Improving on IV Hydration and antiemetics Oral ya: - Add Jong antifungals Constipation: - recent increase in narcotics - Recent decrease in activity related to Left femoral head lesion and prolonged hospital stay for pulmonary infection Plan: - Add Bowel Regimen for Constipation likely induced by narcotics and decreased activity - Continue Radition to left femoral head - palliative - Continue to hold treatment for myeloma until recovery of acute events and cbc - Daily CBC with diff - Treatment for Ya FRANKIE Bone Physician Attest: I have completed the full history and physical of this patient and agree with above dictation by Huyen Sargent NP. Dictated as a scribe.
[2018-10-07] MEDS: CLOTRIMAZOLE TROCHE 10 MG TROCHE MUCOUS MEM SCH (21:42)
[2018-10-07] MEDS: SENNOSIDES-DOCUSATE SODIUM 1 EACH TAB PO SCH (21:42)
[2018-10-08] MEDS: CLOTRIMAZOLE TROCHE 10 MG TROCHE MUCOUS MEM SCH ×5 (00:15→20:37)
[2018-10-08] MEDS: HYDROmorphone 1 MG/ML 1 ML SYRINGE IVP PRN ×7 (01:44→20:44)
[2018-10-08] MEDS: ACYCLOVIR 200 MG CAP PO SCH ×2 (08:18→20:37)
[2018-10-08] MEDS: SODIUM BICARBONATE TAB 650 MG TAB PO SCH ×3 (08:18→20:42)
[2018-10-08] MEDS: ATORVASTATIN 40 MG TAB PO SCH (08:19)
[2018-10-08] MEDS: GABAPENTIN 100 MG CAP PO SCH ×3 (08:19→20:37)
--- NOTE | 2018-10-08 12:38 | P.PN ---
Subjective Progress Note Date: 10/08/18 Principal diagnosis: Acute retroperitoneal hemorrhage 58-year-old male patient with known history of multiple myeloma who arrived yesterday to the emergency department because of nausea, emesis, a few days duration. The patient was unable to hold down any liquids. He was seen by home care and he was advised to come in to the emergency department. He is known to have multiple myeloma and has undergone previous bone marrow transplantation. The patient is very well-known to me and I was involved in his care as the patient had a left upper lobe opacity that was thought to be related to malignancy. The patient had an extensive workup with to biopsy that came back negative for malignancy. Subsequently developed a left-sided pleural effusion and the fluid was drained was consistent with empyema. He was transferred to [facility] where he underwent a thoracotomy with decortication. A Pleurx catheter was inserted. Cultures came back all negative. He was treated with antibiotics and ultimately was discharged home with a Pleurx catheter on the left. This surgical wound site is dry clean and intact. Sulphur are still in place. The chest x-ray shows improvement in the left upper lobe consolidation with some residual changes and left lower lobe. The output from the chest tube has been diminishing slowly and the last drainage that the patient had was around 24 hours ago and the patient drained only 20 mL of material. He has no fever. He has no chills. He has been doing well until he started having these episodes of nausea and emesis. In the emergency department, the patient was found to be pancytopenic. His white cell count was at 1.9 with hemoglobin of 6.9 and a platelet count of 6. Based on this, the patient was ordered to receive a total of 2 units of packed RBC and 2 units of platelets. The patient got his platelet transfusion and the platelet count came up to 46. His hemoglobin is at 6.1 and the patient is awaiting his packed RBC transfusion. Note that the patient had a CAT scan of the abdomen and pelvis that showed evidence of a left perirenal hemorrhage along the left anterior upper the areaextending adjacent to the left kidney and left renal vein. This pattern renal hemorrhage is of a uncertain etiology and there is also a low- density collection along the left lateral pain renal. There was evidence of multiple lower thoracic and lumbar vertebral compression fractures and some of which appeared to be acute. The left lower lobe hemithorax pleural collection was again seen and the patient had a indwelling Pleurx catheter in place. There was some gas collection related to the catheter insertion. This was inserted originally due to concerns of empyema. The patient is currently receiving IV fluids at the rate of 125 mL an hour. Patient also presented with acute kidney injury. His creatinine was up to 3.1. LFTs are within normal limits. He had a component of non-anion gap metabolic acidosis. On today's evaluation of 10/07/2018, the patient is doing well and hemoglobin stable at 7.4. The platelet count is dropped down to 33,000. It has fallen slightly. The renal function is also stable at creatinine of 1.9 is improving compared to yesterday. He continues to have some mild component of metabolic acidosis with a bicarb level of 19. The patient had a spontaneous hematoma involving the right kidney. The patient has no significant hematuria. No nausea. No vomiting. No abdominal pain. No chest pain. No shortness of breath at this point in time. Her pulse ox is 94-98% on room air. He has lost considerable amount of weight over he is stable. We are still awaiting a hematology oncology evaluation regarding the pancytopenia. Reevaluated today on 10/08/2018, patient is doing well from the pulmonary perspective. He is being addressed by urology regarding his retroperitoneal bleeding, and received so far 2 units of packed RBCs, hemoglobin this morning is 7.4. He also received 2 units of platelets. Patient is comfortable in bed, his labs were reviewed and his platelets today are 33,000, WBC count is 2.1 hemoglobin is 7.4. Creatinine is improving is down to 1.95 today. It was 3.11 on admission. Continues to have left-sided chest tube which was supposed to be removed at [facility] today, patient has minimal drainage from the tube, and I have recommended thoracic surgery evaluation to evaluate the tube and possibly remove it today. Objective - Vital Signs Vital signs: Vital Signs Temp 98.8 F 10/08/18 05:10 Pulse 73 10/08/18 05:10 Resp 20 10/08/18 05:10 BP 123/70 10/08/18 05:10 Pulse Ox 94 L 10/08/18 05:10 Intake & Output 10/07/18 10/08/18 10/08/18 18:59 06:59 18:59 Intake Total 480 300 240 Output Total 700 1100 Balance -220 -800 240 Intake: Oral 480 300 240 Output: Urine 700 1100 Other: Voiding Method Urinal Urinal # Voids 1 2 # Bowel Movements 0 - Exam GENERAL: Revealed a 63-year-old white male in no distress. Head: Atraumatic, normocephalic. HEENT: PERRLA, EOMI, no icterus. Moist mucous membranes. No neck masses no JVD no stridor no thyromegaly. CARDIOVASCULAR: S1 and S2 present. No murmurs, rubs, or gallops. PULMONARY: Clear bilaterally no crackles or rhonchi or wheezes, left-sided Pleurx catheter is noted. ABDOMEN: Soft, nontender, nondistended, normoactive bowel sounds. No palpable organomegaly. MUSCULOSKELETAL: No joint swelling or deformity. EXTREMITIES: No cyanosis, clubbing, or pedal edema. NEUROLOGICAL: Alert oriented 3, no gross focal neurologic deficits. SKIN: No rashes. Lymphatics: No lymphadenopathy. - Labs CBC & Chem 7: 10/07/18 05:56 10/07/18 05:56 Labs: Microbiology - Last 24 Hours (Table) 10/05/18 21:30 Urine Culture - Final Urine,Voided Assessment and Plan Assessment: Impression: 1 acute spontaneous perirenal/retroperitoneal bleeding 2 acute kidney injury improving with fluid resuscitation this is most likely secondary to hypotension and bleeding. 3 acute intravascular volume depletion secondary to excessive nausea and emesis. 4 history of multiple myeloma. 5 pancytopenia related to chemotherapy and his underlying multiple myeloma 6 history of recent left lung empyema requiring decortication at [facility]. Continues to have Pleurx catheter in place, we will have our thoracic surgery address and possibly remove the Pleurx catheter if felt appropriate. 7 multiple comorbidities including hypertension, COPD, coronary artery disease, history of previous bone marrow transplantation, history of chronic back pain secondary to multiple myeloma, history of peripheral neuropathy, and history of coronary artery disease and previous stent placement. Recommendation: Continue present supportive care measures, continue to monitor for bleeding, conservative measures mostly for now, will not require any surgical intervention most likely. Consulted thoracic surgery to address the left sided Pleurx catheter and possibly have it removed. We'll continue to follow. Time with Patient: Less than 30
[2018-10-08] MEDS: SODIUM CHLORIDE 0.9% 1,000 ML IV SCH (14:41)
[2018-10-08] MEDS: POLYETHYLENE GLYCOL 3350 17 GM POWD.PACK PO SCH (14:41)
[2018-10-08] MEDS: SENNOSIDES-DOCUSATE SODIUM 1 EACH TAB PO SCH ×2 (14:41→20:36)
[2018-10-08 15:04] VITALS: BMI 22.4
--- NOTE | 2018-10-08 15:17 | PN ---
PROGRESS NOTE Patient is seen for followup for acute kidney injury which was mainly prerenal associated with significant volume depletion from nausea, vomiting after chemotherapy. Patient is maintained on IV fluids. Patient was also found to have left perirenal hemorrhage. His platelet count was 6000 at the time of admission. This is fairly stable. He has been evaluated by Urology. Currently, his urine is clear with no ongoing gross hematuria. PHYSICAL EXAMINATION: This morning, blood pressure was 123/70, heart rate 73 per minute. He is afebrile. Examination of the heart, S1, S2. Examination of the lungs, bilateral breath sounds are heard. Abdomen is soft, nontender. Examination of the lower extremities shows no evidence of edema. [employer] exam is grossly intact. LABS: Show hemoglobin 7.4, white cell count 2.1. Sodium 142, potassium 4.2, BUN 44, serum creatinine 1.95. ASSESSMENT: 1. Acute kidney injury associated with hypotension, severe anemia and volume depletion, currently improving. I will check labs today as we do not have labs from today. 2. Left perirenal hemorrhage associated with severe thrombocytopenia, being followed by Urology. No plan for intervention. 3. Multiple myeloma with history of a stem cell transplant, maintained on chemotherapy. PLAN: Continue with IV fluids. Check labs today. MMODL / IJN: [id number] /
[2018-10-08 15:44] LABS: Potassium 3.7 mmol/L (3.5-5.1)
--- NOTE | 2018-10-08 16:03 | P.PN ---
Subjective Progress Note Date: 10/08/18 Principal diagnosis: Pancytopenia Awaiting CBC from today, moving bowels improved nausea Objective - Vital Signs Vital signs: Vital Signs Temp 99.4 F 10/08/18 12:48 Pulse 76 10/08/18 12:48 Resp 18 10/08/18 12:48 BP 101/59 10/08/18 12:48 Pulse Ox 91 L 10/08/18 12:48 Intake & Output 10/07/18 10/08/18 10/08/18 18:59 06:59 18:59 Intake Total 480 300 240 Output Total 700 1100 Balance -220 -800 240 Weight 66.7 kg Intake: Oral 480 300 240 Output: Urine 700 1100 Other: Voiding Method Urinal Urinal # Voids 1 2 2 # Bowel Movements 0 1 - Exam Gen: No acute distress, alert and oriented Head: NC, NT Mouth: POsitive [place], Dry Membranes No adenopathy on palpation Lungs: Diminished bibasilar, no increased effort Abdomen: Soft, Non-tended, ND Heart: RRR, S1s2 Ext: No edema, +Pulses Neuro: No Sensory or motor deficits - Labs CBC & Chem 7: 10/07/18 05:56 10/08/18 15:01 Labs: Abnormal Lab Results - Last 24 Hours (Table) 10/08/18 Range/Units 15:01 Chloride 114 H (98-107) mmol/L Carbon Dioxide 16 L (22-30) mmol/L BUN 22 H (9-20) mg/dL Glucose 127 H (74-99) mg/dL Calcium 8.0 L (8.4-10.2) mg/dL Microbiology - Last 24 Hours (Table) 10/05/18 21:30 Urine Culture - Final Urine,Voided Assessment and Plan (1) Nausea & vomiting Current Visit: Yes Status: Acute Code(s): R11.2 - NAUSEA WITH VOMITING, UNSPECIFIED SNOMED Code(s): 02815279 (2) Pancytopenia Current Visit: Yes Status: Acute Code(s): D61.818 - OTHER PANCYTOPENIA SNOMED Code(s): 311725200 (3) Myeloma Current Visit: Yes Status: Chronic Priority: Medium Code(s): C90.00 - MULTIPLE MYELOMA NOT HAVING ACHIEVED REMISSION SNOMED Code(s): 986551936 Plan: Assessment and Recommendations: Multiple Myeloma: - Details per HPI - Treatment currently on hold for pancytopenia, recent progression of disease and prolonged hospital stay for decortication and empyema Pancytopenia:Secondary to Malignancy and Chemotherapy - Continue to monitor CBC - Transfusion support PRN, Hgb less than 7, PLatelets less than 10 Intractable Nausea and Vomiting: - Likely secondary to constipation and perlita - Improving on IV Hydration and antiemetics Oral perlita: - Add Jong antifungals Constipation: - recent increase in narcotics - Recent decrease in activity related to Left femoral head lesion and prolonged hospital stay for pulmonary infection Plan: -Await CBC today and tomorrow - Cardiothoracic surgery regarding evaluation for removal of Chest tube, was suppose to have out at [facility] today. - Continue supportive transfusions, PT?OT, pain managment and bowel regimen FRANKIE Bone
[2018-10-08 16:25] LABS: Anisocytosis Moderate; HCT 20.9 % (39.0-53.0); HGB 7.5 gm/dL (13.0-17.5); MCH 34.6 pg (25.0-35.0); MCHC 35.8 g/dL (31.0-37.0); MCV 96.8 fL (80.0-100.0); Macrocytosis Moderate; Mean Platelet Volume 8.9; RBC 2.16 m/uL (4.30-5.90); RDW 23.5 % (11.5-15.5); WBC 3.6 k/uL (3.8-10.6)
[2018-10-08 17:37] LABS: Band Neutrophils % 5 %; Eosinophils # (M) 0.14 k/uL (0-0.7); Hypochromasia (M) Present; Lymphocytes # (M) 1.04 k/uL (1.0-4.8); Monocytes # (M) 0.04 k/uL (0-1.0); Neutrophils % (M) 61 %; Nucleated Red Blood Cells 0 /100 WBC (0-0); Platelet Count 32 k/uL (150-450); Poikilocytosis (M) Present; Total Cells Counted 100
--- NOTE | 2018-10-08 18:00 | P.GSCN ---
History of Present Illness Consult date: 10/08/18 Reason for Consult: Management of left Pleurx catheter. Requesting physician: Marilynn Morejon History of present illness: This is a 63-year-old gentleman who is followed by Dr. Jp Coelho on an outpatient basis. Patient has a past medical history significant for multiple myeloma which was diagnosed in 2009, history of bone marrow transplant, history of nicotine dependence quit in June 2018, chronic obstructive pulmonary disease, gastroesophageal reflux disease, history of myocardial infarction, coronary artery disease, hypertension and hyperlipidemia. The patient is also followed by Dr. Zacarias on an outpatient basis from pulmonary medicine. He was recently diagnosed with a left upper lobe Manoj D that was thought to be malignancy. Extensive workup was completed with biopsy which came back negative for malignancy. Subsequently he developed a left-sided pleural effusion which was consistent with an empyema. He was referred to [facility] where he underwent a video-assisted thoracoscopic procedure with decortication and Pleurx catheter placement. The patient reports he was discharged home around 13 or [address] [facility] and was being seen at home by home care. Over the past 4 or 5 days the patient reports he has been having some nausea, vomiting and feeling of generalized weakness requiring him to walk with a walker at home. Home care was checking in on him and subsequently advised the patient to come to the emergency department here at [facility]. The patient denies any complaints of pain, shortness of breath, presyncope or syncope, fever or chills. His initial lab results in the emergency department showed a WBC count of 2.7, Hgb 6.9, platelets 6, BUN 45, creatinine 3.11 and a glucose level of 123. He has been afebrile since his hospitalization. His initial chest x-ray demonstrated a persistent left mid and lower lung zone pulm onary Manoj D4/infiltrate associated with some mild volume loss. It also showed a small nodular density projecting to the left lung base, a left Pleurx catheter and a left pleural density suggesting a small to moderate left pleural effusion. For further evaluation a computed tomography scan of his abdomen/pelvis was completed which demonstrated evidence of an acute left perineal hemorrhage along the left anterior perineal space extending adjacent to the left kidney and left renal vein. It also demonstrated small nonobstructing bilateral renal calculi, no evidence of bowel obstruction or pneumoperitoneum, and multiple lower thoracic and lumbar vertebral compression fractures. The patient also has dutch in place to his left lateral chest incisions from his VATS procedure with no redness or drainage present. He also has a left Pleurx catheter in place with his dressing clean and dry. Due to the patient's recent VATS procedure and Pleurx catheter a consult was placed to Dr. Herb Villagran for recommendations and management of the Pleurx catheter. Review of Systems A 14 point review of systems was completed and was negative except as mentioned in the HPI. Past Medical History Past Medical History: Coronary Artery Disease (CAD), Cancer, COPD, GERD/Reflux, Hyperlipidemia, Hypertension, Myocardial Infarction (CA), Pneumonia Additional Past Medical History / Comment(s): 2010 diagnosed with multiple myeloma-tx with chemo in 2009 and in 2010 had stem cell transplant, recently found L hilar mass-has had it biopsied and awaiting results, pt states he is on HTN med and cholesterol medications since his MIs prophylactically, gastric ulcer years ago, low back pain, neuropathy bilateral legs/feet since chemo for multiple myeloma treated, sinus problems. Last Myocardial Infarction Date:: 01/09/14, FEB 2005 History of Any Multi-Drug Resistant Organisms: None Reported Past Surgical History: Heart Catheterization, Heart Catheterization With Stent Additional Past Surgical History / Comment(s): 2011 Stem cell transplant, multiple bone marrow bxs, 08/08/18 and 08/16/18 bronchoscopies/biopsies/needle aspiration, EGD/colonoscopy. Left Pleurx catheter drainage system in place Past Anesthesia/Blood Transfusion Reactions: No Reported Reaction Additional Past Anesthesia/Blood Transfusion Reaction / Comm: Pt states he received blood in past without reaction. Date of Last Stent Placement:: 01/09/14 Past Psychological History: Anxiety Smoking Status: Former smoker (Quit in June 2018.) Past Alcohol Use History: None Reported Past Drug Use History: None Reported - Past Family History Father Family Medical History: Cancer Additional Family Medical History / Comment(s): LUNG CA Son(s) Family Medical History: Cancer Additional Family Medical History / Comment(s): BLADDER CA Mother Family Medical History: No Reported History Additional Family Medical History / Comment(s): Mother is healthy and is 86yrs old. Medications and Allergies Home Medications Medication Instructions Recorded Confirmed Type Gabapentin [Neurontin] 600 mg PO TID 01/08/14 10/05/18 History Atorvastatin [Lipitor] 40 mg PO DAILY 03/24/14 10/05/18 History Acyclovir [Zovirax] 400 mg PO BID 08/06/18 10/05/18 History Cetirizine HCl [Zyrtec] 10 mg PO HS 08/06/18 10/05/18 History Lisinopril [Zestril] 2.5 mg PO DAILY 08/06/18 10/05/18 History Prochlorperazine [Compazine] 10 mg PO Q6H PRN 08/22/18 10/05/18 History Pyridoxine HCl (Vitamin B6) 100 mg PO BID 08/22/18 10/05/18 History [Vitamin B-6] oxyCODONE-APAP 10-325MG [Percocet 1 tab PO Q4H PRN 08/22/18 10/05/18 History 10-325 mg] Aspirin [Adult Low Dose Aspirin EC] 81 mg PO DAILY 10/05/18 10/05/18 History Dexamethasone 40 mg PO Q7D 10/05/18 10/05/18 History Famotidine 20 mg PO DAILY 10/05/18 10/05/18 History Ixazomib Citrate [Ninlaro] 4 mg PO Q7D 10/05/18 10/05/18 History Lenalidomide [Revlimid] 25 mg PO DAILY 10/05/18 10/05/18 History Sulfamethox-Tmp 800-160Mg [Bactrim 1 tab PO MOWEFR 10/05/18 10/05/18 History DS 800-160 mg] Allergies Allergy/AdvReac Type Severity Reaction Status Date / Time No Known Allergies Allergy Verified 10/05/18 21:51 Surgical - Exam Vital Signs Temp Pulse Resp BP Pulse Ox 98.4 F 75 18 96/54 96 10/05/18 20:48 10/05/18 20:48 10/05/18 20:48 10/05/18 20:48 10/05/18 20:48 - General well developed, no distress, no pain, chronically ill - Eyes PERRL, normal ocular movement - ENT normal pinna, normal nares, normal mucosa, no hearing loss, no congestion - Neck Neck is supple, no lymphadenopathy. no masses, no bruits, trachea midline, no venous distension - Respiratory Lungs sounds essentially clear to his bilateral upper lobes, diminished to his left lower lobe. Respirations are symmetrical and nonlabored. Pleurx catheter in place to his left lower chest, dressing clean and dry. - Cardiovascular Regular rhythm and rate. S1 and S2 present, negative for S3, gallop or murmur. No edema present. Peripheral pulses palpable. - Abdomen Abdomen is soft, nontender and nondistended. No guarding or rigidity. No organomegaly. - Genitourinary Deferred - Rectum Deferred - Integumentary Dry flaky skin to his bilateral lower extremities. Dressing is clean and dry to his left Pleurx catheter. no rash, no growths, no abnormal pigmentation - Neurologic No focal deficits. normal coordination, normal sensation - Musculoskeletal normal gait, normal posture - Psychiatric oriented to time, oriented to person, oriented to place, speech is normal, memory intact Results - Labs 10/08/18 16:06 10/08/18 15:01 Abnormal Lab Results - Last 24 Hours (Table) 10/08/18 10/08/18 Range/Units 15:01 16:06 WBC 3.6 L (3.8-10.6) k/uL RBC 2.16 L (4.30-5.90) m/uL Hgb 7.5 L (13.0-17.5) gm/dL Hct 20.9 L (39.0-53.0) % RDW 23.5 H (11.5-15.5) % Plt Count 32 L (150-450) k/uL Chloride 114 H (98-107) mmol/L Carbon Dioxide 16 L (22-30) mmol/L BUN 22 H (9-20) mg/dL Glucose 127 H (74-99) mg/dL Calcium 8.0 L (8.4-10.2) mg/dL Diabetes panel 10/08/18 Range/Units 15:01 Sodium 141 (137-145) mmol/L Potassium 3.7 (3.5-5.1) mmol/L Chloride 114 H (98-107) mmol/L Carbon Dioxide 16 L (22-30) mmol/L BUN 22 H (9-20) mg/dL Creatinine 1.05 (0.66-1.25) mg/dL Glucose 127 H (74-99) mg/dL Calcium 8.0 L (8.4-10.2) mg/dL Calcium panel 10/08/18 Range/Units 15:01 Calcium 8.0 L (8.4-10.2) mg/dL Pituitary panel 10/08/18 Range/Units 15:01 Sodium 141 (137-145) mmol/L Potassium 3.7 (3.5-5.1) mmol/L Chloride 114 H (98-107) mmol/L Carbon Dioxide 16 L (22-30) mmol/L BUN 22 H (9-20) mg/dL Creatinine 1.05 (0.66-1.25) mg/dL Glucose 127 H (74-99) mg/dL Calcium 8.0 L (8.4-10.2) mg/dL Adrenal panel 10/08/18 Range/Units 15:01 Sodium 141 (137-145) mmol/L Potassium 3.7 (3.5-5.1) mmol/L Chloride 114 H (98-107) mmol/L Carbon Dioxide 16 L (22-30) mmol/L BUN 22 H (9-20) mg/dL Creatinine 1.05 (0.66-1.25) mg/dL Glucose 127 H (74-99) mg/dL Calcium 8.0 L (8.4-10.2) mg/dL - Imaging Chest x-ray: report reviewed, image reviewed CT scan - abdomen: report reviewed, image reviewed Assessment and Plan Assessment: 1. Dehydration, nausea and vomiting. 2. Acute kidney injury secondary to dehydration. 3. Acute peroneal hemorrhage along the left anterior perineal space extending to the left kidney and renal vein, etiology unknown. 4. History of multiple myeloma status post bone marrow transplant in 2010. 5. Pancytopenia. 6. Left lung empyema without evidence of any malignancy, status post left VATS procedure with decortication and Pleurx catheter placement. 7. Chronic obstructive pulmonary disease. 8. History of hypertension. 9. History of hyperlipidemia. 10. History of coronary artery disease. 12. Gastroesophageal reflux disease. 13. Chronic back pain. 14. Peripheral neuropathy. 15. History of coronary artery disease with previous stent placement. Plan: The patient was seen and examined on the third floor medical surgical unit. His chart and diagnostics were reviewed. Dr. Herb Villagran evaluated the patient and discussed removing the dutch from his left chest incisions. Recommend his Pleurx catheter be drained today and drained again on Monday. Keep Pleurx catheter in place for now. Pleurx catheter was drained for 100 mL of thin serosanguineous drainage. According to the patient this is the most he is draining from the catheter since he has had the catheter in place. Ayr were removed from his left chest incisions without incident. Medical management per primary care service. Pulmonary management per Dr. Morejon's recommendations. More recommendations to follow based on patient's clinical course. Thank you Dr. Morejon for this consult and we will look forward to working with you in the care of your patient. Time with Patient: Greater than 30
[2018-10-08] MEDS ORDERED: ENOXAPARIN 40 MG/0.4 ML SYRINGE SQ SCH (22:30)
--- NOTE | 2018-10-08 23:17 | PN ---
PROGRESS NOTE DATE OF SERVICE: October 08, 2018. PRESENTING COMPLAINT: Tired. INTERVAL HISTORY: This patient with multiple myeloma recently got treatment at [facility], also had treatment done for left-sided empyema, has a PleurX catheter in place, had poor appetite before he came in, now doing better. Breathing is better. Seen by cardiothoracic earlier today that did drain another 100 mL PleurX catheter not to be removed currently per them. REVIEW OF SYSTEMS: Done for constitutional, cardiovascular, GI, pulmonary and relevant findings as above. The patient has been up to the bathroom. Overall feeling much better. CURRENT MEDICATIONS: Current medications are reviewed include acyclovir, Lipitor, Neurontin, sodium bicarb, saline. PHYSICAL EXAMINATION: VITAL SIGNS: Temperature 99.4, pulse 76, respiratory 18, blood pressure 101/59, pulse ox 91 percent on room air. GENERAL APPEARANCE: Sitting up, awake. EYES: Pupils equal. Conjunctivae pale. NECK: JVD not raised. RESPIRATORY: Effort normal. LUNGS: Decreased breath sounds. CARDIOVASCULAR: 1st and 2nd sounds normal. No edema. ABDOMEN: Soft, nontender. Liver and spleen not palpable. PSYCHIATRY: Alert and oriented x3. Mood and affect normal. INVESTIGATIONS: White count 3.6, hemoglobin 7.5, platelets 32, potassium 3.7, BUN 22, creatinine 1.05, down from 2.78. ASSESSMENT: 1. Acute renal failure prerenal from poor oral intake, improved with IV fluids. 2. Chronic compression fracture of T7, T8 with radiculopathy. 3. Coronary artery disease. 4. Chronic obstructive pulmonary disease in an ex-smoker. 5. Gastroesophageal reflux disease. 6. Hyperlipidemia. 7. Essential hypertension. 8. Multiple myeloma. 9. Peripheral neuropathy from chemotherapy. 10.Pancytopenia from chemotherapy. 11.Left pleural effusion with a PleurX 100 mL drained today. PLAN: Patient is slowly improving. Oral intake is improved. Pain is well controlled. We will resume patient's home dose of Percocet. Dilaudid will be discontinued. MMODL / IJN: [id number] /
[2018-10-09] MEDS: oxyCODONE-APAP 10-325MG 1 EACH TAB PO PRN ×5 (00:07→20:07)
[2018-10-09] MEDS: CLOTRIMAZOLE TROCHE 10 MG TROCHE MUCOUS MEM SCH ×4 (00:10→18:06)
[2018-10-09] MEDS: SODIUM BICARBONATE TAB 650 MG TAB PO SCH ×2 (07:42→15:43)
[2018-10-09] MEDS: ACYCLOVIR 200 MG CAP PO SCH (07:42)
[2018-10-09] MEDS: GABAPENTIN 100 MG CAP PO SCH ×2 (07:42→15:43)
[2018-10-09] MEDS: POLYETHYLENE GLYCOL 3350 17 GM POWD.PACK PO SCH (07:42)
[2018-10-09] MEDS: SENNOSIDES-DOCUSATE SODIUM 1 EACH TAB PO SCH (07:42)
[2018-10-09] MEDS: ATORVASTATIN 40 MG TAB PO SCH (07:43)
[2018-10-09 08:32] LABS: Anisocytosis Moderate; Hypochromasia Slight; MCH 32.8 pg (25.0-35.0); MCV 99.4 fL (80.0-100.0); Macrocytosis Moderate; RBC 1.99 m/uL (4.30-5.90); RDW 23.1 % (11.5-15.5); WBC 1.5 k/uL (3.8-10.6)
[2018-10-09 08:36] LABS: HGB 6.5 gm/dL (13.0-17.5)
[2018-10-09 08:37] LABS: HCT 19.8 % (39.0-53.0); Platelet Count 11 k/uL (150-450)
[2018-10-09 08:39] LABS: Anion Gap 4 mmol/L; Blood Urea Nitrogen 18 mg/dL (9-20); Calcium 7.4 mg/dL (8.4-10.2); Carbon Dioxide 20 mmol/L (22-30); Chloride 116 mmol/L (98-107); Glucose 85 mg/dL (74-99); Potassium 3.7 mmol/L (3.5-5.1); Sodium 140 mmol/L (137-145)
[2018-10-09] MEDS ORDERED: PYRIDOXINE 50 MG TAB PO SCH (09:00)
[2018-10-09] MEDS ORDERED: FAMOTIDINE 20 MG TAB PO SCH (09:00)
[2018-10-09] MEDS ORDERED: IOPAMIDOL-300 CONTRAST 30 ML VIAL (ORAL USE) PO PRN (10:11)
--- NOTE | 2018-10-09 10:38 | P.PN ---
Progress Note - Text Progress Note Date: 10/09/18 The patient is afebrile and normotensive. He is hungry and is tolerating liquids but says that he has had persistent diarrhea. He denies any abdominal or left flank pain. Hemoglobin has fallen from 7.5 yesterday afternoon to 6.5 this morning. Platelet count has also fallen and is now 11,000. BUN/creatinine are 18/0.94. It remains unclear how much of the patient's long hemoglobin is related to his underlying multiple myeloma and how much could be related to a retroperitoneal hematoma. CT scan of the abdomen with IV contrast will be obtained to reassess the left perinephric region. The patient will also receive blood and platelet transfusions.
[2018-10-09 10:47] LABS: Band Neutrophils % 2 %; Eosinophils # (M) 0.06 k/uL (0-0.7); Lymphocytes # (M) 0.66 k/uL (1.0-4.8); Monocytes # (M) 0.06 k/uL (0-1.0); Myelocytes # (M) 0.03 k/uL (0); Myelocytes % 2 %; Neutrophils % (M) 44 %; Nucleated Red Blood Cells 0 /100 WBC (0-0); Total Cells Counted 100
--- NOTE | 2018-10-09 10:52 | P.PN ---
Subjective Patient is seen in follow-up for acute kidney injury which was mostly prerenal. GFR is back to baseline. Patient states he feels hungry and wants his diet advanced. Good urine output. Denies chest pain or shortness of breath. Hemoglobin is down to 6.5 today. No active bleeding. Vital signs are stable. General: The patient appeared well nourished and normally developed. HEENT: Head exam is unremarkable. Neck is without jugular venous distension. LUNGS: Lungs are clear to auscultation and percussion. Breath sounds decreased. HEART: Rate and Rhythm are regular. First and second heart sounds normal. No murmurs, rubs or gallops. ABDOMEN: Abdominal exam reveals normal bowel sounds. Non-tender and non- distended. No evidence of peritonitis. EXTREMITITES: No clubbing, cyanosis, or edema. Objective - Vital Signs Vital signs: Vital Signs Temp 98.0 F 10/09/18 05:00 Pulse 61 10/09/18 05:00 Resp 16 10/09/18 08:00 BP 111/69 10/09/18 05:00 Pulse Ox 96 10/09/18 05:00 Intake & Output 10/08/18 10/09/18 10/09/18 18:59 06:59 18:59 Intake Total 240 1180 Output Total 100 Balance 140 1180 Weight 66.7 kg Intake: Oral 240 1180 Output: Drainage 100 Left Lateral Back 100 Other: Voiding Method Urinal # Voids 2 0 # Bowel Movements 1 0 - Labs CBC & Chem 7: 10/09/18 07:46 10/09/18 07:46 Labs: Abnormal Lab Results - Last 24 Hours (Table) 10/08/18 10/08/18 10/09/18 Range/Units 15:01 16:06 07:46 WBC 3.6 L 1.5 L (3.8-10.6) k/uL RBC 2.16 L 1.99 L (4.30-5.90) m/uL Hgb 7.5 L 6.5 L* (13.0-17.5) gm/dL Hct 20.9 L 19.8 L* (39.0-53.0) % RDW 23.5 H 23.1 H (11.5-15.5) % Plt Count 32 L 11 L* D (150-450) k/uL Chloride 114 H (98-107) mmol/L Carbon Dioxide 16 L (22-30) mmol/L BUN 22 H (9-20) mg/dL Glucose 127 H (74-99) mg/dL Calcium 8.0 L (8.4-10.2) mg/dL 10/09/18 Range/Units 07:46 WBC (3.8-10.6) k/uL RBC (4.30-5.90) m/uL Hgb (13.0-17.5) gm/dL Hct (39.0-53.0) % RDW (11.5-15.5) % Plt Count (150-450) k/uL Chloride 116 H (98-107) mmol/L Carbon Dioxide 20 L (22-30) mmol/L BUN (9-20) mg/dL Glucose (74-99) mg/dL Calcium 7.4 L (8.4-10.2) mg/dL Assessment and Plan Plan: Assessment: 1. Acute kidney injury mostly prerenal secondary to intravascular volume depletion from vomiting and diarrhea. Improved. Creatinine 0.94 today. 2. Acute anemia. Hemoglobin 6.5 today. No active bleeding noted. 3. Multiple myeloma. 4. Left perirenal hemorrhage. Patient undergo CT of the abdomen today. Urology following. 5. Metabolic acidosis secondary to acute kidney injury maintained on oral sodium bicarbonate. Better. Plan: I will decrease rate of normal saline to 80 mL an hour. Follow-up CAT scan results. Transfuse 1 unit of blood today. Avoid nephrotoxins. Repeat electrolytes in the morning.
[2018-10-09] MEDS ORDERED: SODIUM CHLORIDE 0.9% 1,000 ML IV SCH (11:00)
--- NOTE | 2018-10-09 11:00 | P.PN ---
Subjective Progress Note Date: 10/09/18 Principal diagnosis: Acute retroperitoneal hemorrhage 58-year-old male patient with known history of multiple myeloma who arrived yesterday to the emergency department because of nausea, emesis, a few days duration. The patient was unable to hold down any liquids. He was seen by home care and he was advised to come in to the emergency department. He is known to have multiple myeloma and has undergone previous bone marrow transplantation. The patient is very well-known to me and I was involved in his care as the patient had a left upper lobe opacity that was thought to be related to malignancy. The patient had an extensive workup with to biopsy that came back negative for malignancy. Subsequently developed a left-sided pleural effusion and the fluid was drained was consistent with empyema. He was transferred to [facility] where he underwent a thoracotomy with decortication. A Pleurx catheter was inserted. Cultures came back all negative. He was treated with antibiotics and ultimately was discharged home with a Pleurx catheter on the left. This surgical wound site is dry clean and intact. Dana are still in place. The chest x-ray shows improvement in the left upper lobe consolidation with some residual changes and left lower lobe. The output from the chest tube has been diminishing slowly and the last drainage that the patient had was around 24 hours ago and the patient drained only 20 mL of material. He has no fever. He has no chills. He has been doing well until he started having these episodes of nausea and emesis. In the emergency department, the patient was found to be pancytopenic. His white cell count was at 1.9 with hemoglobin of 6.9 and a platelet count of 6. Based on this, the patient was ordered to receive a total of 2 units of packed RBC and 2 units of platelets. The patient got his platelet transfusion and the platelet count came up to 46. His hemoglobin is at 6.1 and the patient is awaiting his packed RBC transfusion. Note that the patient had a CAT scan of the abdomen and pelvis that showed evidence of a left perirenal hemorrhage along the left anterior upper the areaextending adjacent to the left kidney and left renal vein. This pattern renal hemorrhage is of a uncertain etiology and there is also a low- density collection along the left lateral pain renal. There was evidence of multiple lower thoracic and lumbar vertebral compression fractures and some of which appeared to be acute. The left lower lobe hemithorax pleural collection was again seen and the patient had a indwelling Pleurx catheter in place. There was some gas collection related to the catheter insertion. This was inserted originally due to concerns of empyema. The patient is currently receiving IV fluids at the rate of 125 mL an hour. Patient also presented with acute kidney injury. His creatinine was up to 3.1. LFTs are within normal limits. He had a component of non-anion gap metabolic acidosis. On today's evaluation of 10/07/2018, the patient is doing well and hemoglobin stable at 7.4. The platelet count is dropped down to 33,000. It has fallen slightly. The renal function is also stable at creatinine of 1.9 is improving compared to yesterday. He continues to have some mild component of metabolic acidosis with a bicarb level of 19. The patient had a spontaneous hematoma involving the right kidney. The patient has no significant hematuria. No nausea. No vomiting. No abdominal pain. No chest pain. No shortness of breath at this point in time. Her pulse ox is 94-98% on room air. He has lost considerable amount of weight over he is stable. We are still awaiting a hematology oncology evaluation regarding the pancytopenia. Reevaluated today on 10/08/2018, patient is doing well from the pulmonary perspective. He is being addressed by urology regarding his retroperitoneal bleeding, and received so far 2 units of packed RBCs, hemoglobin this morning is 7.4. He also received 2 units of platelets. Patient is comfortable in bed, his labs were reviewed and his platelets today are 33,000, WBC count is 2.1 hemoglobin is 7.4. Creatinine is improving is down to 1.95 today. It was 3.11 on admission. Continues to have left-sided chest tube which was supposed to be removed at [facility] today, patient has minimal drainage from the tube, and I have recommended thoracic surgery evaluation to evaluate the tube and possibly remove it today. The patient is seen today the 2017 in follow-up on the regular medical floor. He is awake and alert in no acute distress. He denies any worsening shortness of breath, cough or congestion. He is maintaining O2 saturations in the 90s on room air. He remains afebrile. Hemodynamically stable. Left-sided chest tube remains in place. It was drained per CT services yesterday. The plan is to drain it again tomorrow. Possibly be removed in the outpatient setting. White count 1.5. Hemoglobin 6.5. Platelet count 11,000. Creatinine 0.94. He denies any dizziness or lightheadedness. Objective - Vital Signs Vital signs: Vital Signs Temp 98.0 F 10/09/18 05:00 Pulse 61 10/09/18 05:00 Resp 16 10/09/18 08:00 BP 111/69 10/09/18 05:00 Pulse Ox 96 10/09/18 05:00 Intake & Output 10/08/18 10/09/18 10/09/18 18:59 06:59 18:59 Intake Total 240 1180 Output Total 100 Balance 140 1180 Weight 66.7 kg Intake: Oral 240 1180 Output: Drainage 100 Left Lateral Back 100 Other: Voiding Method Urinal # Voids 2 0 # Bowel Movements 1 0 - Exam GENERAL EXAM: Pale, pleasant 63-year-old gentleman. Alert, comfortable in no apparent distress. On room air. HEAD: Normocephalic. EYES: Normal reaction of pupils, equal size. NOSE: Clear with pink turbinates. THROAT: No erythema or exudates. NECK: No masses, no JVD. CHEST: No chest wall deformity. Left-sided chest tube in place. LUNGS: Equal air entry with crackles in the left lung base. CVS: S1 and S2 normal with no audible murmur, regular rhythm. ABDOMEN: No hepatosplenomegaly, normal bowel sounds, no guarding or rigidity. SPINE: No scoliosis or deformity SKIN: No rashes CENTRAL NERVOUS SYSTEM: No focal deficits, tone is normal in all 4 extremities. EXTREMITIES: There is no peripheral edema. No clubbing, no cyanosis. Peripheral pulses are intact. - Labs CBC & Chem 7: 10/09/18 07:46 10/09/18 07:46 Labs: Abnormal Lab Results - Last 24 Hours (Table) 10/08/18 10/08/18 10/09/18 Range/Units 15:01 16:06 07:46 WBC 3.6 L 1.5 L (3.8-10.6) k/uL RBC 2.16 L 1.99 L (4.30-5.90) m/uL Hgb 7.5 L 6.5 L* (13.0-17.5) gm/dL Hct 20.9 L 19.8 L* (39.0-53.0) % RDW 23.5 H 23.1 H (11.5-15.5) % Plt Count 32 L 11 L* D (150-450) k/uL Neutrophils # (Manual) 0.60 L (1.3-7.7) k/uL Lymphocytes # (Manual) 0.66 L (1.0-4.8) k/uL Myelocytes # (Manual) 0.03 H (0) k/uL Chloride 114 H (98-107) mmol/L Carbon Dioxide 16 L (22-30) mmol/L BUN 22 H (9-20) mg/dL Glucose 127 H (74-99) mg/dL Calcium 8.0 L (8.4-10.2) mg/dL 10/09/18 Range/Units 07:46 WBC (3.8-10.6) k/uL RBC (4.30-5.90) m/uL Hgb (13.0-17.5) gm/dL Hct (39.0-53.0) % RDW (11.5-15.5) % Plt Count (150-450) k/uL Neutrophils # (Manual) (1.3-7.7) k/uL Lymphocytes # (Manual) (1.0-4.8) k/uL Myelocytes # (Manual) (0) k/uL Chloride 116 H (98-107) mmol/L Carbon Dioxide 20 L (22-30) mmol/L BUN (9-20) mg/dL Glucose (74-99) mg/dL Calcium 7.4 L (8.4-10.2) mg/dL Assessment and Plan Assessment: Impression: 1 acute spontaneous perirenal/retroperitoneal bleeding 2 acute kidney injury improving with fluid resuscitation this is most likely secondary to hypotension and bleeding. 3 acute intravascular volume depletion secondary to excessive nausea and emesis. 4 history of multiple myeloma. 5 pancytopenia related to chemotherapy and his underlying multiple myeloma 6 history of recent left lung empyema requiring decortication at [facility]. Continues to have Pleurx catheter in place, we will have our thoracic surgery address and possibly remove the Pleurx catheter if felt appropriate. 7 multiple comorbidities including hypertension, COPD, coronary artery disease, history of previous bone marrow transplantation, history of chronic back pain secondary to multiple myeloma, history of peripheral neuropathy, and history of coronary artery disease and previous stent placement. Plan: The patient was seen and evaluated by Dr. Morejon. He is currently stable from the pulmonary standpoint. Computed tomography scan services have left the Pleurx catheter in place for now. Oncology is on the case. Packed red blood cells and platelets have been ordered. We will continue to follow and make further recommendations based on his clinical status. I, the cosigning physician, performed a history & physical examination of the patient. Lungs sounds with crackles in the left lung base, chest tube in place. Maintaining good O2 saturations in the 90s on room air. I discussed the assessment and plan of care with my nurse practitioner, Sona Edmond. I attest to the above note as dictated by her.
[2018-10-09 12:29] LABS: INR 1.2 (<1.2); Partial Thromboplastin Time 28.3 sec (22.0-30.0); Prothrombin Time 12.4 sec (9.0-12.0)
--- NOTE | 2018-10-09 13:30 | P.PN ---
Subjective Progress Note Date: 10/09/18 Principal diagnosis: Pancytopenia Clinically he looks improved. However he did have a significant drop in hemoglobin and platlets. No evidence of bleeding. Objective - Vital Signs Vital signs: Vital Signs Temp 97.5 F L 10/09/18 11:45 Pulse 70 10/09/18 11:45 Resp 16 10/09/18 11:45 BP 111/57 10/09/18 11:45 Pulse Ox 96 10/09/18 11:45 Intake & Output 10/08/18 10/09/18 10/09/18 18:59 06:59 18:59 Intake Total 240 1180 Output Total 100 Balance 140 1180 Weight 66.7 kg Intake: Oral 240 1180 Output: Drainage 100 Left Lateral Back 100 Other: Voiding Method Urinal # Voids 2 0 # Bowel Movements 1 0 - Exam Gen: No acute distress, alert and oriented Head: NC, NT Mouth: POsitive Perlita, Dry Membranes No adenopathy on palpation Lungs: Diminished bibasilar, no increased effort Abdomen: Soft, Non-tended, ND Heart: RRR, S1s2 Ext: No edema, +Pulses Neuro: No Sensory or motor deficits - Labs CBC & Chem 7: 10/09/18 07:46 10/09/18 07:46 Labs: Abnormal Lab Results - Last 24 Hours (Table) 10/08/18 10/08/18 10/09/18 Range/Units 15:01 16:06 07:46 WBC 3.6 L 1.5 L (3.8-10.6) k/uL RBC 2.16 L 1.99 L (4.30-5.90) m/uL Hgb 7.5 L 6.5 L* (13.0-17.5) gm/dL Hct 20.9 L 19.8 L* (39.0-53.0) % RDW 23.5 H 23.1 H (11.5-15.5) % Plt Count 32 L 11 L* D (150-450) k/uL Neutrophils # (Manual) 0.60 L (1.3-7.7) k/uL Lymphocytes # (Manual) 0.66 L (1.0-4.8) k/uL Myelocytes # (Manual) 0.03 H (0) k/uL PT (9.0-12.0) sec INR (<1.2) Chloride 114 H (98-107) mmol/L Carbon Dioxide 16 L (22-30) mmol/L BUN 22 H (9-20) mg/dL Glucose 127 H (74-99) mg/dL Calcium 8.0 L (8.4-10.2) mg/dL 10/09/18 10/09/18 Range/Units 07:46 11:38 WBC (3.8-10.6) k/uL RBC (4.30-5.90) m/uL Hgb (13.0-17.5) gm/dL Hct (39.0-53.0) % RDW (11.5-15.5) % Plt Count (150-450) k/uL Neutrophils # (Manual) (1.3-7.7) k/uL Lymphocytes # (Manual) (1.0-4.8) k/uL Myelocytes # (Manual) (0) k/uL PT 12.4 H (9.0-12.0) sec INR 1.2 H (<1.2) Chloride 116 H (98-107) mmol/L Carbon Dioxide 20 L (22-30) mmol/L BUN (9-20) mg/dL Glucose (74-99) mg/dL Calcium 7.4 L (8.4-10.2) mg/dL Assessment and Plan (1) Nausea & vomiting Current Visit: Yes Status: Acute Code(s): R11.2 - NAUSEA WITH VOMITING, UNSPECIFIED SNOMED Code(s): 82319827 (2) Pancytopenia Current Visit: Yes Status: Acute Code(s): D61.818 - OTHER PANCYTOPENIA SNOMED Code(s): 969541271 (3) Myeloma Current Visit: Yes Status: Chronic Priority: Medium Code(s): C90.00 - MULTIPLE MYELOMA NOT HAVING ACHIEVED REMISSION SNOMED Code(s): 500693546 Plan: Assessment and Recommendations: Multiple Myeloma: - Details per HPI - Treatment currently on hold for pancytopenia, recent progression of disease and prolonged hospital stay for decortication and empyema Pancytopenia:Secondary to Malignancy and Chemotherapy - Continue to monitor CBC - Transfusion support PRN, Hgb less than 7, PLatelets less than 10 - He is recieving a unit of platlets and pRBC today and will be discharged after. He will follow-up in offcice for a CBC check. Intractable Nausea and Vomiting: - Likely secondary to constipation and perlita - Improving on IV Hydration and antiemetics Oral perlita: - Add Jong antifungals Constipation: - recent increase in narcotics - Recent decrease in activity related to Left femoral head lesion and prolonged hospital stay for pulmonary infection Plan: - Transfusion today, One Hour CBC check post transfusions, Discharge per medicine. - Follow-up in office on for CBC check. - Follow-up in 2 weeks with FRANKIE Tapia
--- NOTE | 2018-10-09 13:39 | CT ---
EXAMINATION TYPE: CT abdomen w con DATE OF EXAM: 10/09/2018 COMPARISON: 10/05/2018 HISTORY: Possible left perirenal hemorrhage CT DLP: 505.1 mGycm Automated exposure control for dose reduction was used. TECHNIQUE: Helical acquisition of images was performed from the lung bases through the top of iliac crest to include entire abdomen. CONTRAST: Performed with Oral Contrast and with IV Contrast, patient injected with 100 mL of Isovue 300. FINDINGS: LUNG BASES: There is a similar empyema with left coiled thoracostomy tube and numerous foci of inter rafy air. This is loculated with small component anteriorly along the middle lobe. Compressive atelect asis is seen on the left. Calcified right hilar lymph nodes and mild symmetric gynecomastia are also incidentally seen. Prominent right perihilar lymph node measures 9 mm. LIVER/GB: No significant abnormality is appreciated. PANCREAS: No significant abnormality is seen. SPLEEN: Benign left splenic granulomas are present. ADRENALS: Slightly nodular on the left although no well-defined greater than 1 cm nodule is seen. KIDNEYS: There is a hyperdense elongated irregular density anterior to the left kidney in the periren al space and abutting the left renal vein. This is similar to the prior measuring approximately 7.3 c m in transverse dimension and 2.1 cm in greatest thickness. Adjacent rounded fluid filled cyst measur es 2.8 cm. There is redemonstration of a right renal cyst and L5 density surrounding the right renal vein abutting the medial renal cortex. BOWEL: No dilated large or small bowel. Appendix is partially visualized and appears within normal l imits. Small amount of fluid is seen along the lateral conal fascia bilaterally surrounding the right hemicolon. LYMPH NODES: No significant abnormality is seen. OSSEOUS STRUCTURES: Redemonstration of compression deformities of the T8, T11, T12, L1 and L4 verteb ral bodies. Again there is mixed sclerosis and lucency of the left and may represent likely relate to Paget's disease, sequela prior trauma, or less likely metastasis. FREE AIR: No free air is visualized. OTHER: Abdominal aortic ectasia is seen without aneurysmal dilatation. Extensive atherosclerosis is s een of the sokaogon aorta with occlusion of the right common femoral artery. IMPRESSION: 1. STABLE HIGH DENSITY. RENAL ILL-DEFINED FLUID COLLECTION IN COMPARISON TO 10/05/2018 WHICH MOST LIKE LY REPRESENTS RETROPERITONEAL HEMATOMA GIVEN THIS IS A NEW FINDING FROM THE PRIOR OF 08/31/2018. ADDITI ONALLY A SMALL RIGHT RETROPERITONEAL HEMATOMA IS ALSO SEEN ALONG THE RIGHT RENAL VEIN. 2. PARTIALLY VISUALIZED LEFT EMPYEMA WITH THORACOSTOMY TUBE IN PLACE. 3. TOTAL OCCLUSION OF THE RIGHT COMMON ILIAC ARTERY.
[2018-10-09 14:50] VITALS: RESP 18
[2018-10-09 17:44] VITALS: PULSE 67
[2018-10-09 18:13] VITALS: BP 123/69; TEMP 98
[2018-10-09 19:47] LABS: Anisocytosis Moderate; HCT 21.8 % (39.0-53.0); HGB 7.2 gm/dL (13.0-17.5); MCH 32.2 pg (25.0-35.0); MCHC 33.1 g/dL (31.0-37.0); MCV 97.2 fL (80.0-100.0); Macrocytosis Moderate; Mean Platelet Volume 8.2; Poikilocytosis Slight; RBC 2.25 m/uL (4.30-5.90); RDW 22.4 % (11.5-15.5); WBC 1.8 k/uL (3.8-10.6)
[2018-10-09 19:50] LABS: Platelet Count 27 k/uL (150-450)
[2018-10-09 20:03] LABS: Band Neutrophils % 2 %; Eosinophils # (M) 0.14 k/uL (0-0.7); Lymphocytes # (M) 0.67 k/uL (1.0-4.8); Metamyelocytes # (M) 0.04 k/uL (0); Metamyelocytes % 2 %; Monocytes # (M) 0.09 k/uL (0-1.0); Neutrophils % (M) 46 %; Nucleated Red Blood Cells 1 /100 WBC (0-0); Total Cells Counted 100
== END 2018-10-09 20:12 | disposition home health service (06) | DRG 682 ==
LOC: EC 20:47 → 3SCARD 10-06 01:39 → 4MS4W 10-07 19:14 → 3NMEDONC 10-08 14:12
PROVIDERS: ADMIT Hospitalist; ATTEND Hospitalist
PROC: 30233R1 Transfusion of Nonautologous Platelets into Peripheral Vein, Percutaneous Approach (ICD-10-PCS; principal; 2018-10-06)
PROC: 30233N1 Transfusion of Nonautologous Red Blood Cells into Peripheral Vein, Percutaneous Approach (ICD-10-PCS; 2018-10-06)
DX: N17.0 Acute kidney failure with tubular necrosis (principal); K66.1 Hemoperitoneum; D61.810 Antineoplastic chemotherapy induced pancytopenia; C90.00 Multiple myeloma not having achieved remission; Z94.84 Stem cells transplant status; J91.0 Malignant pleural effusion; E87.2 Acidosis; B37.0 Candidal stomatitis; I95.9 Hypotension, unspecified; D69.59 Other secondary thrombocytopenia; G62.0 Drug-induced polyneuropathy; E83.39 Other disorders of phosphorus metabolism; J44.9 Chronic obstructive pulmonary disease, unspecified; G89.3 Neoplasm related pain (acute) (chronic); K59.03 Drug induced constipation; T40.605A Adverse effect of unspecified narcotics, initial encounter; D63.0 Anemia in neoplastic disease; F41.9 Anxiety disorder, unspecified; N20.0 Calculus of kidney; T45.1X5A Adverse effect of antineoplastic and immunosuppressive drugs, initial encounter; E86.0 Dehydration; M48.54XS Collapsed vertebra, not elsewhere classified, thoracic region, sequela of fracture; E78.00 Pure hypercholesterolemia, unspecified; I10 Essential (primary) hypertension; E78.5 Hyperlipidemia, unspecified; K21.9 Gastro-esophageal reflux disease without esophagitis; M54.14 Radiculopathy, thoracic region; I25.2 Old myocardial infarction; I25.10 Atherosclerotic heart disease of native coronary artery without angina pectoris; Z79.82 Long term (current) use of aspirin; Z79.899 Other long term (current) drug therapy; Z79.52 Long term (current) use of systemic steroids; Z87.01 Personal history of pneumonia (recurrent); Z87.11 Personal history of peptic ulcer disease; Z95.5 Presence of coronary angioplasty implant and graft; Z87.891 Personal history of nicotine dependence; Z80.1 Family history of malignant neoplasm of trachea, bronchus and lung; Z80.52 Family history of malignant neoplasm of bladder
CPT/HCPCS: 36415; 71046; 74160; 74176; 80048; 80053; 81001; 82570; 83605; 83690; 84100; 84300; 84443; 85025; 85027; 85384; 85610; 85730; 86850; 86900; 86901; 86920; 87086; 93005; 96361; 96374; 96375; 96376; 99285

== ENCOUNTER 2018-10-24 21:39 | Inpatient (IN) | payer MEDICARE, BC ==
[2018-10-24] MEDS ORDERED: SODIUM CHLORIDE 0.9% 1,000 ML IV STA ×2 (21:49)
--- NOTE | 2018-10-24 21:51 | ED ---
Weakness HPI - General Chief complaint: Weakness Stated complaint: Weakness Time Seen by Provider: 10/24/18 21:49 Source: patient, RN notes reviewed, old records reviewed Mode of arrival: wheelchair Limitations: no limitations - History of Present Illness Initial comments: This is a 63-year-old male the ER for evaluation. Patient resents ER for evaluation malnutrition and anorexia nausea persistent. Patient does not feel well no energy lack of energy, no history of multiple myeloma, not going to currently any treatment. No fevers no chest pain no abdominal pain. No diarrhea. MD Complaint: generalized weakness, lack of energy, difficulty walking -: days(s) Location: generalized Severity: severe Severity scale (1-10): 8 Improves with: none Worsens with: none Context: recent illness Associated Symptoms: loss of appetite, nausea/vomiting - Related Data Home Medications Medication Instructions Recorded Confirmed Gabapentin [Neurontin] 600 mg PO TID 01/08/14 10/24/18 Atorvastatin [Lipitor] 40 mg PO AC-LUNCH 03/24/14 10/24/18 Acyclovir [Zovirax] 400 mg PO BID 08/06/18 10/24/18 oxyCODONE-APAP 10-325MG [Percocet 1 tab PO Q4H PRN 08/22/18 10/24/18 10-325 mg] Famotidine 20 mg PO HS 10/05/18 10/24/18 Ondansetron [Zofran] 4 mg PO Q12HR PRN 10/18/18 10/24/18 Cetirizine HCl [Zyrtec] 10 mg PO HS 10/24/18 10/24/18 Allergies Allergy/AdvReac Type Severity Reaction Status Date / Time No Known Allergies Allergy Verified 10/24/18 22:23 Review of Systems ROS Statement: Those systems with pertinent positive or pertinent negative responses have been documented in the HPI. ROS Other: All systems not noted in ROS Statement are negative. Past Medical History Past Medical History: Coronary Artery Disease (CAD), Cancer, COPD, GERD/Reflux, Hyperlipidemia, Hypertension, Myocardial Infarction ([place]), Pneumonia Additional Past Medical History / Comment(s): 2009 diagnosed with multiple myeloma-tx with chemo in 2009 and in 2010 had stem cell transplant, recently found L hilar mass-has had it biopsied and awaiting results, pt states he is on HTN med and cholesterol medications since his MIs prophylactically, gastric ulcer years ago, low back pain, neuropathy bilateral legs/feet since chemo for multiple myeloma treated, sinus problems. Last Myocardial Infarction Date:: 01/09/14, FEB 2005 History of Any Multi-Drug Resistant Organisms: None Reported Past Surgical History: Heart Catheterization, Heart Catheterization With Stent Additional Past Surgical History / Comment(s): 2011 Stem cell transplant, multiple bone marrow bxs, 08/08/18 and 08/16/18 bronchoscopies/biopsies/needle aspiration, EGD/colonoscopy. Left Pleurx catheter drainage system in place Past Anesthesia/Blood Transfusion Reactions: No Reported Reaction Additional Past Anesthesia/Blood Transfusion Reaction / Comment(s): Pt states he received blood in past without reaction. Date of Last Stent Placement:: 01/09/14 Past Psychological History: Anxiety Smoking Status: Former smoker Past Alcohol Use History: None Reported Past Drug Use History: None Reported - Past Family History Father Family Medical History: Cancer Additional Family Medical History / Comment(s): LUNG CA Son(s) Family Medical History: Cancer Additional Family Medical History / Comment(s): BLADDER CA Mother Family Medical History: No Reported History Additional Family Medical History / Comment(s): Mother is healthy and is 86yrs old. General Exam Limitations: no limitations General appearance: cachectic Head exam: Present: atraumatic, normocephalic, normal inspection Eye exam: Present: normal appearance, PERRL, EOMI. Absent: scleral icterus, conjunctival injection, periorbital swelling ENT exam: Present: normal exam, mucous membranes moist Neck exam: Present: normal inspection. Absent: tenderness, meningismus, lymphadenopathy Respiratory exam: Present: normal lung sounds bilaterally. Absent: respiratory distress, wheezes, rales, rhonchi, stridor Cardiovascular Exam: Present: regular rate, normal rhythm, normal heart sounds. Absent: systolic murmur, diastolic murmur, rubs, gallop, clicks GI/Abdominal exam: Present: soft, normal bowel sounds. Absent: distended, tenderness, guarding, rebound, rigid Extremities exam: Present: normal inspection, full ROM, normal capillary refill. Absent: tenderness, pedal edema, joint swelling, calf tenderness Back exam: Present: normal inspection Neurological exam: Present: alert, oriented X3, CN II-XII intact Psychiatric exam: Present: normal affect, normal mood Skin exam: Present: warm, dry, intact, normal color. Absent: rash Course Vital Signs 10/24/18 21:42 Temperature 97.8 F Pulse Rate 67 Respiratory 18 Rate Blood Pressure 125/68 O2 Sat by Pulse 96 Oximetry - Reevaluation(s) Reevaluation #1: 10/24/18 23:14 Medical record reviewed Reevaluation #2: 10/24/18 23:14 Patient has no significant improvement in symptoms EKG Findings - EKG Comments: EKG Findings:: EKG shows NSR rate of 67 [place] 136 QRS 104 QTc 538 Medical Decision Making - Medical Decision Making 63 male the ER for evaluation, anorexia malnutrition hypokalemia, patient will admit for dietary support - Lab Data Result diagrams: 10/24/18 22:05 10/24/18 22:05 Lab Results 10/24/18 10/24/18 10/24/18 Range/Units 22:05 22:05 22:05 WBC 1.8 L (3.8-10.6) k/uL RBC 2.46 L (4.30-5.90) m/uL Hgb 7.9 L (13.0-17.5) gm/dL Hct 23.1 L (39.0-53.0) % MCV 93.7 D (80.0-100.0) fL MCH 32.1 (25.0-35.0) pg MCHC 34.2 (31.0-37.0) g/dL RDW 21.4 H (11.5-15.5) % Plt Count 20 L D (150-450) k/uL Neutrophils % (Manual) 46 % Band Neutrophils % 6 % Lymphocytes % (Manual) 42 % Monocytes % (Manual) 2 % Eosinophils % (Manual) 4 % Neutrophils # (Manual) 0.90 L (1.3-7.7) k/uL Lymphocytes # (Manual) 0.76 L (1.0-4.8) k/uL Monocytes # (Manual) 0.04 (0-1.0) k/uL Eosinophils # (Manual) 0.07 (0-0.7) k/uL Nucleated RBCs 0 (0-0) /100 WBC Manual Slide Review Performed Anisocytosis Moderate Macrocytosis Slight PT (9.0-12.0) sec INR (<1.2) APTT (22.0-30.0) sec Sodium 140 (137-145) mmol/L Potassium 2.9 L (3.5-5.1) mmol/L Chloride 103 (98-107) mmol/L Carbon Dioxide 29 (22-30) mmol/L Anion Gap 8 mmol/L BUN 17 (9-20) mg/dL Creatinine 0.66 (0.66-1.25) mg/dL Est GFR (CKD-EPI)AfAm >90 (>60 ml/min/1.73 sqM) Est GFR (CKD-EPI)NonAf >90 (>60 ml/min/1.73 sqM) Glucose 136 H (74-99) mg/dL Plasma Lactic Acid Riccardo 1.1 (0.7-2.0) mmol/L Calcium 8.4 (8.4-10.2) mg/dL Phosphorus 2.9 (2.5-4.5) mg/dL Magnesium 1.8 (1.6-2.3) mg/dL Total Bilirubin 1.1 (0.2-1.3) mg/dL AST 17 (17-59) U/L ALT 10 L (21-72) U/L Alkaline Phosphatase 95 (38-126) U/L Troponin I (0.000-0.034) ng/mL Total Protein 5.8 L (6.3-8.2) g/dL Albumin 2.9 L (3.5-5.0) g/dL 10/24/18 10/24/18 Range/Units 22:05 22:05 WBC (3.8-10.6) k/uL RBC (4.30-5.90) m/uL Hgb (13.0-17.5) gm/dL Hct (39.0-53.0) % MCV (80.0-100.0) fL MCH (25.0-35.0) pg MCHC (31.0-37.0) g/dL RDW (11.5-15.5) % Plt Count (150-450) k/uL Neutrophils % (Manual) % Band Neutrophils % % Lymphocytes % (Manual) % Monocytes % (Manual) % Eosinophils % (Manual) % Neutrophils # (Manual) (1.3-7.7) k/uL Lymphocytes # (Manual) (1.0-4.8) k/uL Monocytes # (Manual) (0-1.0) k/uL Eosinophils # (Manual) (0-0.7) k/uL Nucleated RBCs (0-0) /100 WBC Manual Slide Review Anisocytosis Macrocytosis PT 12.1 H (9.0-12.0) sec INR 1.2 H (<1.2) APTT 26.0 (22.0-30.0) sec Sodium (137-145) mmol/L Potassium (3.5-5.1) mmol/L Chloride (98-107) mmol/L Carbon Dioxide (22-30) mmol/L Anion Gap mmol/L BUN (9-20) mg/dL Creatinine (0.66-1.25) mg/dL Est GFR (CKD-EPI)AfAm (>60 ml/min/1.73 sqM) Est GFR (CKD-EPI)NonAf (>60 ml/min/1.73 sqM) Glucose (74-99) mg/dL Plasma Lactic Acid Riccardo (0.7-2.0) mmol/L Calcium (8.4-10.2) mg/dL Phosphorus (2.5-4.5) mg/dL Magnesium (1.6-2.3) mg/dL Total Bilirubin (0.2-1.3) mg/dL AST (17-59) U/L ALT (21-72) U/L Alkaline Phosphatase (38-126) U/L Troponin I 0.021 (0.000-0.034) ng/mL Total Protein (6.3-8.2) g/dL Albumin (3.5-5.0) g/dL Disposition Clinical Impression: Hypokalemia, Dehydration, Myeloma Disposition: ADMITTED IP TO THIS HOSP Condition: Fair Is patient prescribed a controlled substance at d/c from ED?: No Referrals: Jp Coelho DO [Primary Care Provider] - 1-2 days
[2018-10-24 22:39] LABS: Anisocytosis Moderate; HCT 23.1 % (39.0-53.0); HGB 7.9 gm/dL (13.0-17.5); MCH 32.1 pg (25.0-35.0); MCHC 34.2 g/dL (31.0-37.0); Macrocytosis Slight; Mean Platelet Volume 8.3; RBC 2.46 m/uL (4.30-5.90); RDW 21.4 % (11.5-15.5); WBC 1.8 k/uL (3.8-10.6)
[2018-10-24 22:40] LABS: ALT 10 U/L (21-72); AST 17 U/L (17-59); Albumin 2.9 g/dL (3.5-5.0); Alkaline Phosphatase 95 U/L (38-126); Anion Gap 8 mmol/L; Blood Urea Nitrogen 17 mg/dL (9-20); Calcium 8.4 mg/dL (8.4-10.2); Carbon Dioxide 29 mmol/L (22-30); Chloride 103 mmol/L (98-107); Glucose 136 mg/dL (74-99); MCV 93.7 fL (80.0-100.0); Magnesium 1.8 mg/dL (1.6-2.3); Phosphorus 2.9 mg/dL (2.5-4.5); Potassium 2.9 mmol/L (3.5-5.1); Sodium 140 mmol/L (137-145); Total Bilirubin 1.1 mg/dL (0.2-1.3); Total Protein 5.8 g/dL (6.3-8.2)
[2018-10-24 22:44] LABS: INR 1.2 (<1.2); Prothrombin Time 12.1 sec (9.0-12.0)
[2018-10-24 22:53] LABS: Band Neutrophils % 6 %; Eosinophils # (M) 0.07 k/uL (0-0.7); Lymphocytes # (M) 0.76 k/uL (1.0-4.8); Monocytes # (M) 0.04 k/uL (0-1.0); Neutrophils % (M) 46 %; Nucleated Red Blood Cells 0 /100 WBC (0-0); Total Cells Counted 100
[2018-10-24 22:54] LABS: Platelet Count 20 k/uL (150-450)
[2018-10-24] MEDS ORDERED: Potassium Replacement Protocol 1 EACH MISC MISCELLANE PRN (23:01)
[2018-10-24] MEDS ORDERED: ONDANSETRON 4 MG/2 ML VIAL IVP STA (23:15)
[2018-10-24] MEDS ORDERED: ONDANSETRON 4 MG/2 ML VIAL IVP PRN (23:15)
[2018-10-24] MEDS ORDERED: DEXTROSE 5%-0.45% NACL 1,000 ML IV ONE (23:24)
[2018-10-24] MEDS ORDERED: HYDROmorphone 1 MG/ML 1 ML SYRINGE IVP STA (23:32)
[2018-10-24] MEDS: POTASSIUM CHLORIDE 10 MEQ in WATER FOR INJECTION 1 100ML.BAG IVPB SCH (23:48)
[2018-10-25] MEDS: HYDROmorphone 1 MG/ML 1 ML SYRINGE IVP PRN ×5 (02:09→16:25)
[2018-10-25] MEDS: POTASSIUM CHLORIDE 10 MEQ in WATER FOR INJECTION 1 100ML.BAG IVPB SCH ×4 (02:41→11:48)
[2018-10-25] MEDS ORDERED: IPRATROPIUM-ALBUTEROL 3 ML NEB INHALATION STA (06:33)
[2018-10-25] MEDS ORDERED: Potassium Replacement Protocol 1 EACH MISC MISCELLANE PRN (10:05)
[2018-10-25] MEDS ORDERED: Magnesium Replacement Protocol 1 EACH MISC MISCELLANE PRN (10:05)
[2018-10-25] MEDS ORDERED: LORazepam 0.5 MG TAB PO PRN (10:18)
--- NOTE | 2018-10-25 10:24 | XR ---
EXAMINATION TYPE: XR chest 1V portable DATE OF EXAM: 10/25/2018 COMPARISON: 10/05/2018 HISTORY: Congestive heart failure. Follow-up exam. TECHNIQUE: Single frontal view of the chest is obtained. FINDINGS: There is a new right upper lobe opacity in comparison to 10/05/2018 and increasing confluen ce of the left basilar opacity and left midlung opacity. There is obscuration of the previous nodular density at the left lung base. Trace left pleural effusion is now present. There is stable placement of the left pleural drain. Cardiomediastinal silhouette is stable. Mild degenerative change of the s pine. IMPRESSION: New right upper lobe pneumonia and increasing left midlung pneumonia. Left basilar opaci ty has worsened in the interim and obscures the previously seen pulmonary nodule. Left pleural drain is stable with trace left pleural effusion.
[2018-10-25] MEDS: oxyCODONE-APAP 10-325MG 1 EACH TAB PO PRN ×3 (11:00→19:14)
[2018-10-25 11:35] VITALS: BMI 22.3
[2018-10-25 12:09] LABS: Anion Gap 5 mmol/L; Blood Urea Nitrogen 13 mg/dL (9-20); Calcium 7.8 mg/dL (8.4-10.2); Carbon Dioxide 27 mmol/L (22-30); Chloride 108 mmol/L (98-107); Creatine Kinase <20 U/L (55-170); Glucose 120 mg/dL (74-99); Magnesium 1.6 mg/dL (1.6-2.3); Potassium 3.6 mmol/L (3.5-5.1); Sodium 140 mmol/L (137-145)
[2018-10-25] MEDS: MULTIVITAMINS, THERA 1 EACH TAB PO SCH (12:18)
[2018-10-25] MEDS: ATORVASTATIN 40 MG TAB PO SCH (12:18)
[2018-10-25] MEDS: FOLIC ACID 1 MG TAB PO SCH (12:18)
[2018-10-25] MEDS: POTASSIUM CHLORIDE ER 10 MEQ TAB.ER.PRT PO SCH ×2 (12:18→13:30)
[2018-10-25 12:19] LABS: Anisocytosis Moderate; MCH 30.8 pg (25.0-35.0); MCHC 32.1 g/dL (31.0-37.0); MCV 95.9 fL (80.0-100.0); Macrocytosis Slight; Mean Platelet Volume 8.2; RBC 2.01 m/uL (4.30-5.90); RDW 20.3 % (11.5-15.5); WBC 1.5 k/uL (3.8-10.6)
[2018-10-25 12:32] LABS: HGB 6.2 gm/dL (13.0-17.5)
[2018-10-25 12:33] LABS: HCT 19.3 % (39.0-53.0); Platelet Count 13 k/uL (150-450)
[2018-10-25 13:05] LABS: Band Neutrophils % 4 %; Eosinophils # (M) 0.03 k/uL (0-0.7); Lymphocytes # (M) 0.44 k/uL (1.0-4.8); Myelocytes # (M) 0.02 k/uL (0); Myelocytes % 1 %; Neutrophils % (M) 51 %; Nucleated Red Blood Cells 0 /100 WBC (0-0); Total Cells Counted 100
[2018-10-25] MEDS ORDERED: PIPERACILLIN-TAZOBACTAM 3.375 GM in SODIUM CHLORIDE 0.9% 100 ML IVPB SCH (13:43)
[2018-10-25] MEDS ORDERED: VANCOMYCIN IV PER PHARMACY 1 EACH MISC MISCELLANE PRN (13:43)
--- NOTE | 2018-10-25 14:13 | P.CONS ---
History of Present Illness - Reason for Consult Consult date: 10/25/18 known Requesting physician: Darryl Chawla - Chief Complaint Anorexia, weakness - History of Present Illness Mr. Nicholas is a patient very pleasant male well-known to Dr. Reynolds, diagnosed with non-secretory multiple myeloma in April 2010. Treated with 4 cycles of Velcade/Decadron followed by autologous stem cell transplant in September 2010, patient declined maintenance revlimid. He remains stable and on evaluation for his myeloma until September 2013. Patient presented with worsening anemia. PET scan on 10/21/2017 showed no new lesions, repeat bone marrow biopsy 11/01/2017 showed 60% plasma cells, normal cytogenetics, fish positive for translocation (11,14). Patient was started on treatment with ixazomib/revlimid/dex 11/19/2017. Treatment was held in June 2018 due to significant, persistent pancytopenia. 07/06/18,repeat bone marrow biopsy revealed 20-30% plasma cells, felt to be relatively stable compared to prior bone marrow biopsy, pt placed in observation. 07/28/18 repeat PET scan revealed new osseous lesions and new large left infrahilar lung mass, biopsies were negative, then he developed left pleural effusion, thoracentesis revealed empyema, he was transferred to [facility] with prolonged hospital stay, had decortication of left pleural empyema, pleural biopsies were negative for malignancy. Repeat CT at [facility] on 09/17/18 which revealed resolution of the left hilar mass, he also had MRI of the pelvis on 09/11/2018 which revealed multiple bone lesion, there was a lesion involving 50% of left femoral neck. Patient continues to have the Pleurx catheter, he did receive radiation to the left femur with improvement in his pain. He is admitted from home with complaints of progressive weakness, no appetite, nausea, vomiting with eating, shortness of breath this a.m. that "scared" him. Denies fever, oral irritation, difficulty swallowing, chest pain, abdominal pain or discomfort, diarrhea or constipation, bleeding or swelling. Patient is weak. Review of Systems 14 point review of systems is negative except as stated in HPI Past Medical History Past Medical History: Coronary Artery Disease (CAD), Cancer, COPD, GERD/Reflux, Hyperlipidemia, Hypertension, Myocardial Infarction ([place]), Pneumonia Additional Past Medical History / Comment(s): 2009 diagnosed with multiple myeloma-tx with chemo in 2009 and in 2010 had stem cell transplant, recently found L hilar mass-has had it biopsied-negative, thrombocytopenia, MRI at [facility] 09/11/18 showed bone lesions/L femoral neck lesion-being tx with radiation, recent L pleural effusion/empyema-had decortication L lung at [facility] and has L pleurx cath in place, pt states he is on HTN med and cholesterol medications since his MIs prophylactically, gastric ulcer years ago, low back pain, neuropathy bilateral legs/feet since chemo for multiple myeloma treated, sinus problems. Last Myocardial Infarction Date:: 01/09/14, FEB 2005 History of Any Multi-Drug Resistant Organisms: None Reported Past Surgical History: Heart Catheterization, Heart Catheterization With Stent Additional Past Surgical History / Comment(s): 2010 Stem cell transplant, multiple bone marrow bxs, 08/08/18 and 08/16/18 bronchoscopies/biopsies/needle aspiration, EGD/colonoscopy, [facility]-L lung decortication and has left Pleurx catheter drainage system in place Past Anesthesia/Blood Transfusion Reactions: No Reported Reaction Additional Past Anesthesia/Blood Transfusion Reaction / Comm: Pt states he received blood in past without reaction. Date of Last Stent Placement:: 01/09/14 Past Psychological History: No Psychological Hx Reported Smoking Status: Former smoker Past Alcohol Use History: None Reported Past Drug Use History: None Reported - Past Family History Father Family Medical History: Cancer Additional Family Medical History / Comment(s): LUNG CA Son(s) Family Medical History: Cancer Additional Family Medical History / Comment(s): BLADDER CA Mother Family Medical History: No Reported History Additional Family Medical History / Comment(s): Mother is healthy and is 86yrs old. Medications and Allergies Home Medications Medication Instructions Recorded Confirmed Type Gabapentin [Neurontin] 600 mg PO TID 01/08/14 10/24/18 History Atorvastatin [Lipitor] 40 mg PO AC-LUNCH 03/24/14 10/24/18 History Acyclovir [Zovirax] 400 mg PO BID 08/06/18 10/24/18 History oxyCODONE-APAP 10-325MG [Percocet 1 tab PO Q4H PRN 08/22/18 10/24/18 History 10-325 mg] Famotidine 20 mg PO HS 10/05/18 10/24/18 History Ondansetron [Zofran] 4 mg PO Q12HR PRN 10/18/18 10/24/18 History Cetirizine HCl [Zyrtec] 10 mg PO HS 10/24/18 10/24/18 History Allergies Allergy/AdvReac Type Severity Reaction Status Date / Time No Known Allergies Allergy Verified 10/24/18 22:23 Physical Exam Vitals: Vital Signs Temp Pulse Pulse Resp BP BP Pulse Ox 10/25/18 08:26 68 10/25/18 08:24 20 10/25/18 08:16 64 10/25/18 08:04 98.2 F 64 20 140/71 100 10/24/18 21:42 97.8 F 67 18 125/68 96 Intake and Output 10/24/18 10/25/18 10/25/18 22:59 06:59 14:59 Other: Voiding Method Toilet Bedside Commode Urinal Weight 66.678 kg 66.678 kg - Constitutional General appearance: cooperative, no acute distress, thin - EENT Eyes: anicteric sclerae, EOMI ENT: hearing grossly normal, normal oropharynx - Neck Neck: no lymphadenopathy - Respiratory Respiratory: bilateral: CTA - Cardiovascular Rhythm: regular Heart sounds: normal: S1, S2 Abnormal Heart Sounds: no systolic murmur, no diastolic murmur, no rub, no S3 Gallop, no S4 Gallop, no click, no other leg Peripheral Edema: bilateral: None - Gastrointestinal General gastrointestinal: no absent bowel sounds, no decreased bowel sounds, no distended, no hepatomegaly, no hyperactive bowel sounds, normal bowel sounds, no organomegaly, no rigid, no scaphoid, soft, no splenomegaly, no tenderness, no umbilical hernia, no ventral hernia - Integumentary Integumentary: pale - Neurologic Neurologic: CNII-XII intact - Musculoskeletal Musculoskeletal: generalized weakness, strength equal bilaterally - Psychiatric Psychiatric: A&O x's 3, appropriate affect, intact judgment & insight Results CBC & Chem 7: 10/25/18 11:30 10/25/18 11:30 Labs: Abnormal Lab Results - Last 24 Hours (Table) 10/24/18 10/24/18 10/24/18 Range/Units 22:05 22:05 22:05 WBC 1.8 L (3.8-10.6) k/uL RBC 2.46 L (4.30-5.90) m/uL Hgb 7.9 L (13.0-17.5) gm/dL Hct 23.1 L (39.0-53.0) % RDW 21.4 H (11.5-15.5) % Plt Count 20 L D (150-450) k/uL Neutrophils # (Manual) 0.90 L (1.3-7.7) k/uL Lymphocytes # (Manual) 0.76 L (1.0-4.8) k/uL PT 12.1 H (9.0-12.0) sec INR 1.2 H (<1.2) Potassium 2.9 L (3.5-5.1) mmol/L Glucose 136 H (74-99) mg/dL ALT 10 L (21-72) U/L Total Protein 5.8 L (6.3-8.2) g/dL Albumin 2.9 L (3.5-5.0) g/dL Chest x-ray: report reviewed Assessment and Plan (1) Anorexia Narrative/Plan: Marinol added for appetite, will evaluate effectiveness Current Visit: Yes Status: Acute Priority: High Code(s): R63.0 - ANOREXIA SNOMED Code(s): 89466492 (2) Myeloma Narrative/Plan: No recent treatment for the same. He is due to follow up with Dr. Reynolds as he completed radiation to the hip this past Monday. This was to discuss treatment options for myeloma. Current Visit: Yes Status: Chronic Priority: Medium Code(s): C90.00 - MULTIPLE MYELOMA NOT HAVING ACHIEVED REMISSION SNOMED Code(s): 135226316 (3) Pancytopenia Narrative/Plan: Secondary to patient's disease. Patient has been unable to resume any therapy for myeloma. 1 unit of blood for hemoglobin of 6.2 Close monitoring for bleeding, no platelets at this time, transfused for platelet count less than 10,000 or symptomatic G-CSF added for a WBC of 1.6 with an absolute neutrophil count 800 CBC daily Current Visit: Yes Status: Acute Priority: High Code(s): D61.818 - OTHER PANCYTOPENIA SNOMED Code(s): 777165156 (4) Nausea & vomiting Narrative/Plan: Antiemetics and appetite stimulants ordered, will evaluate effectiveness Current Visit: Yes Status: Acute Priority: High Code(s): R11.2 - NAUSEA WITH VOMITING, UNSPECIFIED SNOMED Code(s): 57174191
[2018-10-25] MEDS: SODIUM CHLORIDE 0.9% 1,000 ML IV SCH (14:20)
[2018-10-25] MEDS: PANTOPRAZOLE 40 MG/10 ML VIAL IVP SCH ×2 (14:29→21:54)
[2018-10-25] MEDS ORDERED: VANCOMYCIN 1,250 MG in SODIUM CHLORIDE 0.9% 250 ML IVPB ONE (15:00)
[2018-10-25] MEDS: MEGESTROL 400 MG/10 ML CUP PO SCH (15:19)
[2018-10-25 15:38] LABS: Appearance,Urine Clear (Clear); Bilirubin,Urine Negative (Negative); Blood,Urine Negative (Negative); Color,Urine Yellow; Glucose,Urine (UA) Negative (Negative); Ketones,Urine Negative (Negative); Leukocyte Esterase,Urine Negative (Negative); Nitrite,Urine Negative (Negative); Protein,Urine Trace (Negative)
[2018-10-25] MEDS: MEROPENEM 1 GM in SODIUM CHLORIDE 0.9% 100 ML IVPB SCH ×3 (16:26→23:47)
--- NOTE | 2018-10-25 16:52 | HP ---
HISTORY AND PHYSICAL DATE OF SERVICE: 10/25/2018 CHIEF COMPLAINTS: Weakness. HISTORY OF PRESENT ILLNESS: This 63-year-old gentleman with a past medical history of multiple medical problems including multiple myeloma, underwent pulmonary in 2017, subsequent recurrence and also chemotherapy. The patient also had history of CAD, COPD, GERD, hypertension, hyperlipidemia, myocardial infarction being followed by Dr. Coelho in the outpatient setting. The patient also had coronary artery disease, stent also. The patient complaining of weakness and tiredness. The patient came to [facility] and was admitted for further evaluation and treatment. The patient also complaining of significant exam and appetite also. Hemoglobin was found to be 6.2. The transfusion has been arranged. The patient also had pancytopenia. Hematology/Oncology consultation in progress. There is no history of fever, rigors or chills. No history of headache, loss of consciousness, seizures. The chest x-ray showed evidence of pneumonia, which was felt in the left lower lobe and as well as right upper lobe, also. PAST MEDICAL HISTORY: History of multiple myeloma, bone marrow transplant, chemotherapy, history of CAD, COPD, GERD, hypertension, hyperlipidemia, history of myocardial infarction, history of pneumonia, history of CAD, history of anxiety. MEDICATIONS: Prior to admission include: 1. Percocet 10 mg q.4 p.r.n. 2. Zofran 4 mg b.i.d. p.r.n. 3. Neurontin 600 mg p.o. t.i.d. 4. Pepcid 20 mg p.o. q.h.s. 5. Zyrtec 10 mg q.h.s. 6. Lipitor 40 mg .. 8. Zovirax 400 mg p.o. b.i.d. ALLERGIES: None. FAMILY HISTORY: History of lung cancer. SOCIAL HISTORY: Previous history of smoking. No history of alcohol intake. REVIEW OF SYSTEMS: ENT: No diminished vision. No diminished hearing. CARDIOVASCULAR: No angina or palpitations. RESPIRATORY: As mentioned earlier. GI: As mentioned earlier. no dysuria. NERVOUS SYSTEM: As mentioned earlier. ALLERGY/IMMUNOLOGY: No asthma or hayfever. MUSCULOSKELETAL: As mentioned earlier. HEMATOLOGY/ONCOLOGY: As mentioned earlier. ENDOCRINE: No history of diabetes or hypothyroidism. CONSTITUTIONAL: As mentioned earlier. Dermatology: Negative. Rheumatology: Negative. Psychiatry: As mentioned earlier. PHYSICAL EXAMINATION: GENERAL: Alert and oriented times three. Pulse 65, blood pressure 120/58, respirations 16, temperature 98.9, pulse ox 94% on room air. HEENT conjunctivae pale. Oral mucosa is pale. NECK: No jugular venous distention. No carotid bruit. No lymph node enlargement. CARDIOVASCULAR SYSTEM: S1, S2 muffled. No S3, no S4. RESPIRATORY: Breath sounds diminished in the bases. A few scattered rhonchi and crackles. ABDOMEN: Soft, nontender. No mass palpable. LEGS: Bilateral leg edema. NERVOUS SYSTEM: Higher functions as mentioned earlier. Moves all 4 limbs. Mild diffuse weakness. LYMPHATICS: No lymph nodes palpable in the neck, axilla and groin. SKIN: No ulcer, no rash or bleeding. JOINTS: No active bleeding. LABS: WBC 1.5, hemoglobin 6.2, platelets are 13. Sodium 140, potassium 3.6. ASSESSMENT: 1. Multiple myeloma with weakness. 2. Bilateral pneumonia possibly gram-negative. 3. Severe hypokalemia, present on admission. 4. Anemia, multifactorial. 5. Pancytopenia secondary to multiple myeloma. 6. History of coronary artery disease, stent. 7. History of chronic obstructive pulmonary disease. 8. Gastroesophageal reflux disease. 9. Hypertension. 10.Hyperlipidemia. 11.Myocardial infarction. 12.History of pneumonia. 13.History of thrombocytopenia. 14.History of left pleural effusion. 15.Hypertension. 16.History of anxiety. 17.Remote history of nicotine dependence. 18.NO CODE, NO CPR, NO VENT. RECOMMENDATIONS AND DISCUSSION: In this 63-year-old gentleman who presented with multiple complex medical issues, we will monitor the patient closely, continue the current medications, continue symptomatic treatment. Otherwise, at this time, I recommend continue with current medications. I would recommend supplement potassium. Repeat lytes. One unit transfusion. Also recommend broad-spectrum IV antibiotics. Obtain cultures. Consult Hematology/Oncology and as well as Pulmonary. Resume the home medication. Overall prognosis extremely guarded because of multiple complex medical issues. Further recommendations to follow. See orders for details. MMODL / IJN: [id number] / MTDD
[2018-10-25] MEDS: FILGRASTIM-SNDZ 300 MCG/0.5 ML SYRINGE SQ SCH (16:54)
[2018-10-25] MEDS: GABAPENTIN 300 MG CAP PO SCH ×2 (16:54→21:12)
[2018-10-25] MEDS: DRONABINOL 2.5 MG CAP PO SCH (18:11)
--- NOTE | 2018-10-25 18:54 | P.CNPUL ---
History of Present Illness Consult date: 10/25/18 Reason for consult: dyspnea, pneumonia History of present illness: This is a very pleasant 63-year-old male patient is well-known to me. The pat salvador has history of multiple myeloma of a nonsecretory type that was diagnosed in 2009. The patient has been receiving treatment under the care of Dr. Reynolds and after 4 sessions of Velcade and Decadron the patient's underwent an autologous stem cell transplantation in 2010 and the patient remains stable 2013. A repeat bone marrow biopsy that was done on 11/02/2079 showed 60% plasma cells with normal cytogenetics and the fish positive for translocation 11 ,14. The patient was treated with a combination of Revlimid and dexamethasone and Ixazomib. Following that, the treatment was held in general 2018 due to severe pancytopenia. Since then the patient has been having several pulmonary comp lications most significant of which was an empyema the developed in the left lung. After being treated in our facility the patient was transferred to [facility] where he underwent a thoracoscopic decortication and the Pleurx catheter insertion and the patient was transferred back to [place] for further care. At this point in time the Pleurx catheter is in place and the patient is having some limited drainage around 20-30 mL of output every other day. The patient me was also receiving radiation therapy to the left femur due to ongoing pain in that area. The patient came into the hospital because of generalized weakness, diminished appetite, and the patient reported loss in appetite without any significant nausea or vomiting. He denies having any significant worsening shortness of breath. He was coughing some colored sputum. Denied having any fever or chills. On his blood work, the patient revealed pancytopenia with a white count of 1.7 and hemoglobin of 6.2 and a platelet count of 13. The patient had a chest x-ray in the emergency department that showed a new right upper lobe pneumonia with increasing left midlung changes and left basilar opacity that has slightly worsened compared to the previous chest x-ray from 10/05/2018. The patient continues to have a Pleurx catheter in the left lung. Based on all this, the patient was admitted to the hospital and the patient was started on a combination of antibiotics. I saw this patient on the medical floor and put him on a combination of meropenem and vancomycin. The patient is currently on room air oxygen with a pulse ox of 94%. Hemodynamically stable and the patient is afebrile. Hematology oncology will be consulted and the patient will be given G-CSF for an absolute neutrophil count of 800. The patient will also receive a unit of packed RBC. Platelet counts are being monitored and the patient had a recent platelet transfusion that was given to him through oncology. Review of Systems Constitutional: Reports chronic pain, Reports weakness, Reports weight loss, the patient has diminished appetite and ongoing weight loss. His current BMI is 22.4. He has ongoing pain in his right hip area for which she was receiving radiation therapy. Eyes: denies blurred vision, denies decreased vision Ears: deny: decreased hearing Ears, nose, mouth and throat: Denies headache, Denies sore throat Cardiovascular: Reports dyspnea on exertion, Reports shortness of breath Respiratory: Reports cough, Reports dyspnea, patient has a Pleurx catheter in place., Reports no pleurisy Gastrointestinal: Denies abdominal pain, reports nausea and vomiting and inability to keep any oral material. Genitourinary: Reports as per HPI Musculoskeletal: Reports as per HPI Integumentary: Denies pruritus, Denies rash Neurological: Reports gait dysfunction, Reports weakness Psychiatric: Reports anxiety Endocrine: Denies fatigue, Denies weight change Hematologic/Lymphatic: Reports as per HPI, the patient has complicated his of multiple myeloma and stem cell transplantation and the patient has pancytopenia for now Allergic/Immunologic: Reports as per HPI Past Medical History Past Medical History: Coronary Artery Disease (CAD), Cancer, COPD, GERD/Reflux, Hyperlipidemia, Hypertension, Myocardial Infarction ([place]), Pneumonia Additional Past Medical History / Comment(s): 2009 diagnosed with multiple myeloma-tx with chemo in 2009 and in 2010 had stem cell transplant, recently found L hilar mass-has had it biopsied-negative, thrombocytopenia, MRI at [facility] 09/11/18 showed bone lesions/L femoral neck lesion-being tx with radiation, recent L pleural effusion/empyema-had decortication L lung at [facility] and has L pleurx cath in place, pt states he is on HTN med and cholesterol medications since his MIs prophylactically, gastric ulcer years ago, low back pain, neuropathy bilateral legs/feet since chemo for multiple myeloma treated, sinus p roblems. Last Myocardial Infarction Date:: 01/09/14FEB 2005 History of Any Multi-Drug Resistant Organisms: None Reported Past Surgical History: Heart Catheterization, Heart Catheterization With Stent Additional Past Surgical History / Comment(s): 2011 Stem cell transplant, multiple bone marrow bxs, 08/08/18 and 08/16/18 bronchoscopies/biopsies/needle aspiration, EGD/colonoscopy, [facility]H-L lung decortication and has left Pleurx catheter drainage system in place Past Anesthesia/Blood Transfusion Reactions: No Reported Reaction Additional Past Anesthesia/Blood Transfusion Reaction / Comment(s): Pt states he received blood in past without reaction. Date of Last Stent Placement:: 01/09/14 Past Psychological History: No Psychological Hx Reported Smoking Status: Former smoker Past Alcohol Use History: None Reported Past Drug Use History: None Reported - Past Family History Father Family Medical History: Cancer Additional Family Medical History / Comment(s): LUNG CA Son(s) Family Medical History: Cancer Additional Family Medical History / Comment(s): BLADDER CA Mother Family Medical History: No Reported History Additional Family Medical History / Comment(s): Mother is healthy and is 86yrs old. Medications and Allergies Home Medications Medication Instructions Recorded Confirmed Type Gabapentin [Neurontin] 600 mg PO TID 01/08/14 10/24/18 History Atorvastatin [Lipitor] 40 mg PO AC-LUNCH 03/24/14 10/24/18 History Acyclovir [Zovirax] 400 mg PO BID 08/06/18 10/24/18 History oxyCODONE-APAP 10-325MG [Percocet 1 tab PO Q4H PRN 08/22/18 10/24/18 History 10-325 mg] Famotidine 20 mg PO HS 10/05/18 10/24/18 History Ondansetron [Zofran] 4 mg PO Q12HR PRN 10/18/18 10/24/18 History Cetirizine HCl [Zyrtec] 10 mg PO HS 10/24/18 10/24/18 History Allergies Allergy/AdvReac Type Severity Reaction Status Date / Time No Known Allergies Allergy Verified 10/24/18 22:23 Physical Exam Vitals: Vital Signs Temp Pulse Pulse Resp BP BP BP 10/25/18 18:25 98.6 F 64 18 133/72 10/25/18 18:19 98.2 F 63 20 129/79 10/25/18 12:45 98.1 F 65 16 128/58 10/25/18 08:26 68 10/25/18 08:24 20 10/25/18 08:16 64 10/25/18 08:04 98.2 F 64 20 140/71 10/24/18 21:42 97.8 F 67 18 125/68 Pulse Ox 10/25/18 18:25 96 10/25/18 18:19 97 10/25/18 12:45 94 L 10/25/18 08:26 10/25/18 08:24 10/25/18 08:16 10/25/18 08:04 100 10/24/18 21:42 96 Intake and Output 10/25/18 10/25/18 10/25/18 06:59 14:59 22:59 Intake Total 0 Balance 0 Intake: Blood Product 0 Rc Irr As3 Unit 0 [id number] Other: Voiding Method Toilet Bedside Commode Urinal # Voids 2 Weight 66.678 kg GENERAL EXAM: Alert, and oriented 3. In a significant amount of discomfort in the chest and lower extremities. The patient is currently on room air. The patient has lost significant amount of weight and is calm and comfortable in his following commands and answering questions appropriately. No signs of any respiratory distress. The patient looks pale. No jaundice. HEAD: Normocephalic. EYES: Normal reaction of pupils, equal size. NOSE: Clear with pink turbinates. THROAT: No erythema or exudates. NECK: No masses, no JVD. CHEST: No chest wall deformity. LUNGS: Patient diminished breath on the left lung base and the patient has a Pleurx catheter in the left hemithorax. CVS: S1 and S2 normal with no audible murmur, regular rhythm. ABDOMEN: No hepatosplenomegaly, normal bowel sounds, no guarding or rigidity. SPINE: No scoliosis or deformity SKIN: No rashes CENTRAL NERVOUS SYSTEM: No focal deficits, tone is normal in all 4 extremities. EXTREMITIES: There is no peripheral edema. No clubbing, no cyanosis. Per ipheral pulses are intact. Results - Laboratory Findings CBC and BMP: 10/25/18 11:30 10/25/18 11:30 PT/INR, D-dimer PT 12.1 sec (9.0-12.0) H 10/24/18 22:05 INR 1.2 (<1.2) H 10/24/18 22:05 Abnormal lab findings: Abnormal Labs 10/24/18 10/24/18 10/24/18 22:05 22:05 22:05 WBC 1.8 L RBC 2.46 L Hgb 7.9 L Hct 23.1 L RDW 21.4 H Plt Count 20 L D Neutrophils # (Manual) 0.90 L Lymphocytes # (Manual) 0.76 L Myelocytes # (Manual) PT 12.1 H INR 1.2 H Potassium 2.9 L Chloride Creatinine Glucose 136 H Calcium ALT 10 L Creatine Kinase Total Protein 5.8 L Albumin 2.9 L Urine Protein Crossmatch 10/25/18 10/25/18 10/25/18 11:30 11:30 14:59 WBC 1.5 L RBC 2.01 L Hgb 6.2 L* D Hct 19.3 L* RDW 20.3 H Plt Count 13 L* Neutrophils # (Manual) 0.80 L Lymphocytes # (Manual) 0.44 L Myelocytes # (Manual) 0.02 H PT INR Potassium Chloride 108 H Creatinine 0.62 L Glucose 120 H Calcium 7.8 L ALT Creatine Kinase <20 L Total Protein Albumin Urine Protein Crossmatch See Detail 10/25/18 15:18 WBC RBC Hgb Hct RDW Plt Count Neutrophils # (Manual) Lymphocytes # (Manual) Myelocytes # (Manual) PT INR Potassium Chloride Creatinine Glucose Calcium ALT Creatine Kinase Total Protein Albumin Urine Protein Trace H Crossmatch - Diagnostic Findings Chest x-ray: image reviewed Assessment and Plan Plan: 1 acute right upper lobe pneumonia in a 63-year-old male patient who is immunosuppressed with an absolute neutrophil count of 800. In addition there is some limited infiltration of the left midlung and chronic consolidation of left lower lobe, a residual of a previous empyema and the patient is a Pleurx catheter in place with some ongoing drainage which has dropped significantly ove r this past few weeks. 2 pancytopenia, a complication of multiple myeloma 3 history of a spontaneous perirenal hemorrhage along the left anterior perirenal space extending to the left kidney and left renal vein. 4 history of multiple myeloma post bone marrow transplantation 5 generalized weakness, anorexia and ongoing constitutional symptoms and weight loss, secondary to above 6 left lung empyema without evidence of any malignancy. The patient is undergone thoracotomy with decortication and the cultures of been negative and the patient has a Pleurx catheter in place output of which is minimal at this point in time 7 coronary artery disease with previous coronary stent insertion and cardiac catheterization, currently free of any chest pain 8 COPD 9 hypertension 10 hyperlipidemia 11 known history of coronary artery disease 12 previous history of bone marrow transplantation and the patient undergone stem cell transplant in 2010 13 chronic back pain and myeloma related lytic lesions throughout the skeletal system 14 peripheral neuropathy 15 peptic ulcer disease 16 hip pain completed radiation therapy Plan Obtain sputum Gram stain and culture. Obtain blood culture. Cover the patient with a combination of Merrem and vancomycin. Serial daily chest x-rays. G-CSF regarding neutropenia. Give the patient unit of packed RBC. Monitor hematologic profile. Watch for any bleeding. Consult hematology oncology. Continue draining the Pleurx catheter every other day and monitor the output. We'll continue to follow and make further recommendations based on the patient's progress.
[2018-10-25] MEDS ORDERED: FAMOTIDINE 20 MG TAB PO SCH (21:00)
[2018-10-25] MEDS ORDERED: HEPARIN SODIUM,PORCINE 5,000 UNIT/ML 1 ML VIAL SQ SCH (21:00)
[2018-10-25] MEDS: ACYCLOVIR 200 MG CAP PO SCH (21:13)
[2018-10-26] MEDS: VANCOMYCIN 1,250 MG in SODIUM CHLORIDE 0.9% 250 ML IVPB SCH ×3 (00:11→17:40)
[2018-10-26] MEDS ORDERED: PANTOPRAZOLE 40 MG TABLET PO SCH (07:30)
[2018-10-26] MEDS: MEROPENEM 1 GM in SODIUM CHLORIDE 0.9% 100 ML IVPB SCH ×3 (08:48→23:19)
[2018-10-26] MEDS: ACYCLOVIR 200 MG CAP PO SCH ×2 (08:49→21:36)
[2018-10-26] MEDS: MEGESTROL 400 MG/10 ML CUP PO SCH (08:49)
[2018-10-26] MEDS: MULTIVITAMINS, THERA 1 EACH TAB PO SCH (08:49)
[2018-10-26] MEDS: GABAPENTIN 300 MG CAP PO SCH ×3 (08:49→21:36)
[2018-10-26] MEDS: PANTOPRAZOLE 40 MG/10 ML VIAL IVP SCH ×2 (08:49→21:36)
[2018-10-26] MEDS: oxyCODONE-APAP 10-325MG 1 EACH TAB PO PRN ×3 (08:50→19:55)
[2018-10-26] MEDS: DRONABINOL 2.5 MG CAP PO SCH ×2 (08:50→17:41)
[2018-10-26 09:13] LABS: Anisocytosis Moderate; MCH 30.9 pg (25.0-35.0); MCHC 33.4 g/dL (31.0-37.0); MCV 92.6 fL (80.0-100.0); Macrocytosis Slight; Mean Platelet Volume 9.3; RBC 2.59 m/uL (4.30-5.90); RDW 21.5 % (11.5-15.5); WBC 2.9 k/uL (3.8-10.6)
[2018-10-26 09:14] LABS: Platelet Count 8 k/uL (150-450)
[2018-10-26 09:18] LABS: Anion Gap 6 mmol/L; Blood Urea Nitrogen 11 mg/dL (9-20); Calcium 8.1 mg/dL (8.4-10.2); Carbon Dioxide 24 mmol/L (22-30); Chloride 112 mmol/L (98-107); Glucose 90 mg/dL (74-99); Magnesium 1.7 mg/dL (1.6-2.3); Potassium 3.5 mmol/L (3.5-5.1); Sodium 142 mmol/L (137-145)
[2018-10-26 10:27] LABS: Band Neutrophils % 2 %; Eosinophils # (M) 0.12 k/uL (0-0.7); Lymphocytes # (M) 0.46 k/uL (1.0-4.8); Metamyelocytes # (M) 0.03 k/uL (0); Metamyelocytes % 1 %; Monocytes # (M) 0.15 k/uL (0-1.0); Myelocytes # (M) 0.09 k/uL (0); Myelocytes % 3 %; Neutrophils % (M) 72 %; Nucleated Red Blood Cells 1 /100 WBC (0-0); Total Cells Counted 200
--- NOTE | 2018-10-26 10:33 | CDI ---
Documentation Clarification Form Date: 10/26/2018 10:12:22 AM From: Tereza CuellarCraigFRANCK nix, CCDS Admit Date: 10/24/2018 11:15:00 PM Patient Name: Fede Nicholas Visit Number: [id number] Discharge Date: ATTENTION: The Clinical Documentation Specialists (CDI) and [facility] Coding Staff appreciate your assistance in clarifying documentation. Please respond to the clarification below the line at the bottom and electronically sign. The CDI & [facility] Coding staff will review the response and follow-up if needed. Please note: Queries are made part of the Legal Health Record. If you have any questions, please contact the author of this message via ITS. Dr. Darwin Aguilera: Per the ED note: "Patient presents to ER for evaluation of malnutrition and anorexia, nausea persistent. Medical Decision Makin male the ER for evaluation, anorexia malnutrition hypokalemia, patient will admit for dietary support." History/Risk Factors: Multiple Myeloma status post stem cell transplant & radiotherapy, has Pleurx catheter in place. CAD, COPD, GERD, Hypertension, Hyperlipidemia, [place], Pneumonia & former smoker. Clinical Indicators: Admitted with the above from ER & also diagnosed with possible gram negative pneumonia. Labs: WBC 1.8*, RBC 2.46*, Hgb 7.9*-6.2, Hct 23.1* - 19.3, Pl Ct 20* - 13; Total Prot 5.8*, albumin 2.9* Current BMI: 22.4 Physical Assessment: Weak w/1person assist, fall precautions, vomiting & dehydration w/six weeks, poor intake 0-25%, well nourished, underweight, unintended weight loss. Treatment: IV fluid 100, IV fluid bolus, IV Kcl, IV Zofran x2, IV Dextrose/NaCl, IV Dilaudid, Albuterol INH, IV Zosyn, IV Rocephin. In your professional opinion, can you please clarify if these findings signify one of the following conditions? Mild Protein-Calorie Malnutrition Moderate Protein-Calorie Malnutrition Severe Protein-Calorie Malnutrition Other condition, please specify Unable to determine (Last Revision: September 2017) None MTDD
[2018-10-26] MEDS: ATORVASTATIN 40 MG TAB PO SCH (11:25)
[2018-10-26] MEDS: FOLIC ACID 1 MG TAB PO SCH (11:25)
--- NOTE | 2018-10-26 14:24 | P.PN ---
Subjective Progress Note Date: 10/26/18 Principal diagnosis: Acute right upper lobe pneumonia in an immunosuppressed host, pancytopenia, complication of multiple myeloma, history of previous left empyema chronic Pleurix catheter in place This is a very pleasant 63-year-old male patient is well-known to me. The patient has history of multiple myeloma of a nonsecretory type that was diagnosed in 2009. The patient has been receiving treatment under the care of Dr. Reynolds and after 4 sessions of Velcade and Decadron the patient's underwent an autologous stem cell transplantation in 2010 and the patient remains stable 2013. A repeat bone marrow biopsy that was done on 11/02/2079 showed 60% plasma cells with normal cytogenetics and the fish positive for translocation 11 ,14. The patient was treated with a combination of Revlimid and dexamethasone and Ixazomib. Following that, the treatment was held in general 2018 due to severe pancytopenia. Since then the patient has been having several pulmonary complic ations most significant of which was an empyema the developed in the left lung. After being treated in our facility the patient was transferred to [facility] where he underwent a thoracoscopic decortication and the Pleurx catheter insertion and the patient was transferred back to [place] for further care. At this point in time the Pleurx catheter is in place and the patient is having some limited drainage around 20-30 mL of output every other day. The patient me was also receiving radiation therapy to the left femur due to ongoing pain in that area. The patient came into the hospital because of generalized weakness, diminished appetite, and the patient reported loss in appetite without any significant nausea or vomiting. He denies having any significant worsening shortness of breath. He was coughing some colored sputum. Denied having any fever or chills. On his blood work, the patient revealed pancytopenia with a white count of 1.7 and hemoglobin of 6.2 and a platelet count of 13. The patient had a chest x-ray in the emergency department that showed a new right upper lobe pneumonia with increasing left midlung changes and left basilar opacity that has slightly worsened compared to the previous chest x-ray from 10/05/2018. The patient continues to have a Pleurx catheter in the left lung. Based on all this, the patient was admitted to the hospital and the patient was started on a combination of antibiotics. I saw this patient on the medical floor and put him on a combination of meropenem and vancomycin. The patient is currently on room air oxygen with a pulse ox of 94%. Hemodynamically stable and the patient is afebrile. Hematology oncology will be consulted and the patient will be given G-CSF for an absolute neutrophil count of 800. The patient will also receive a unit of packed RBC. Platelet counts are being monitored and the patient had a recent platelet transfusion that was given to him through oncology. On 10/26/2018 patient seen in follow-up on oncology floor. He is resting quietly in bed, appears very fatigued and weak, but he states he is feeling better. Denies any worsening shortness of breath, patient is on 4 L of oxygen w ith a pulse ox of 96%, he is afebrile, hemodynamically stable, no worsening shortness of breath or chest pain. Lung sounds are diminished at the left lung base, no rhonchi or wheezing noted. no cough or congestion Objective - Vital Signs Vital signs: Vital Signs Temp 97.7 F 10/26/18 11:57 Pulse 86 10/26/18 11:57 Resp 16 10/26/18 11:57 BP 128/71 10/26/18 11:57 Pulse Ox 96 10/26/18 11:57 Intake & Output 10/25/18 10/26/18 10/26/18 18:59 06:59 18:59 Intake Total 0 1100 1000 Balance 0 1100 1000 Weight 66.678 kg Intake: IV 200 Sodium Chloride 0.9% 1, 200 000 ml @ 50 mls/hr IV . Q20H BARBARA Rx#:[id number] Intake, IV Titration 400 Amount Sodium Chloride 0.9% 1, 400 000 ml @ 50 mls/hr IV . Q20H BARBARA Rx#:[id number] Oral 590 600 Blood Product 0 310 Rc Irr As3 Unit 0 310 [id number] Other: Voiding Method Toilet Toilet Toilet Bedside Commode Urinal # Voids 2 1 # Bowel Movements 1 - Exam GENERAL EXAM: Alert, pleasant, 63-year-old white male, appears weak and fatigued, pale resting quietly in bed comfortable in no apparent distress. HEAD: Normocephalic/atraumatic. EYES: Normal reaction of pupils, equal size. Conjunctiva pink, sclera white. NOSE: Clear with pink turbinates. THROAT: No erythema or exudates. NECK: No masses, no JVD, no thyroid enlargement, no adenopathy. CHEST: No chest wall deformity. Symmetrical expansion. Left-sided Pleurx catheter in place LUNGS: Equal air entry with no crackles, wheeze, rhonchi or dullness. Diminished breath sounds over left base CVS: Regular rate and rhythm, normal S1 and S2, no gallops, no murmurs, no rubs ABDOMEN: Soft, nontender. No hepatosplenomegaly, normal bowel sounds, no guar ding or rigidity. EXTREMITIES: No clubbing, no edema, no cyanosis, 2+ pulses and upper and lower extremities. MUSCULOSKELETAL: Muscle strength and tone normal. SPINE: No scoliosis or deformity SKIN: No rashes CENTRAL NERVOUS SYSTEM: Alert and oriented -3. No focal deficits, tone is normal in all 4 extremities. PSYCHIATRIC: Alert and oriented -3. Appropriate affect. Intact judgment and insight. - Labs CBC & Chem 7: 10/26/18 08:50 10/26/18 08:50 Labs: Abnormal Lab Results - Last 24 Hours (Table) 10/25/18 10/25/18 10/26/18 Range/Units 14:59 15:18 08:50 WBC 2.9 L (3.8-10.6) k/uL RBC 2.59 L (4.30-5.90) m/uL Hgb 8.0 L D (13.0-17.5) gm/dL Hct 24.0 L (39.0-53.0) % RDW 21.5 H (11.5-15.5) % Plt Count 8 L* (150-450) k/uL Lymphocytes # (Manual) 0.46 L (1.0-4.8) k/uL Metamyelocytes # (Man) 0.03 H (0) k/uL Myelocytes # (Manual) 0.09 H (0) k/uL Nucleated RBCs 1 H (0-0) /100 WBC Chloride (98-107) mmol/L Creatinine (0.66-1.25) mg/dL Calcium (8.4-10.2) mg/dL Urine Protein Trace H (Negative) Crossmatch See Detail 10/26/18 Range/Units 08:50 WBC (3.8-10.6) k/uL RBC (4.30-5.90) m/uL Hgb (13.0-17.5) gm/dL Hct (39.0-53.0) % RDW (11.5-15.5) % Plt Count (150-450) k/uL Lymphocytes # (Manual) (1.0-4.8) k/uL Metamyelocytes # (Man) (0) k/uL Myelocytes # (Manual) (0) k/uL Nucleated RBCs (0-0) /100 WBC Chloride 112 H (98-107) mmol/L Creatinine 0.62 L (0.66-1.25) mg/dL Calcium 8.1 L (8.4-10.2) mg/dL Urine Protein (Negative) Crossmatch Microbiology - Last 24 Hours (Table) 10/25/18 15:18 Urine Culture - Preliminary Urine,Voided Assessment and Plan Plan: Assessment: 1 acute right upper lobe pneumonia in a 63-year-old male patient who is immunosuppressed with an absolute neutrophil count of 800. In addition there is some limited infiltration of the left midlung and chronic consolidation of left lower lobe, a residual of a previous empyema and the patient is a Pleurx catheter in place with some ongoing drainage which has dropped significantly o jordyn this past few weeks. 2 pancytopenia, a complication of multiple myeloma 3 history of a spontaneous perirenal hemorrhage along the left anterior perirenal space extending to the left kidney and left renal vein. 4 history of multiple myeloma post bone marrow transplantation 5 generalized weakness, anorexia and ongoing constitutional symptoms and weight loss, secondary to above 6 left lung empyema without evidence of any malignancy. The patient is undergone thoracotomy with decortication and the cultures of been negative and the patient has a Pleurx catheter in place output of which is minimal at this point in time 7 coronary artery disease with previous coronary stent insertion and cardiac catheterization, currently free of any chest pain 8 COPD 9 hypertension 10 hyperlipidemia 11 known history of coronary artery disease 12 previous history of bone marrow transplantation and the patient undergone stem cell transplant in 2010 13 chronic back pain and myeloma related lytic lesions throughout the skeletal system 14 peripheral neuropathy 15 peptic ulcer disease 16 hip pain completed radiation therapy Plan: We'll drain the Pleurx catheter today, continue current antibiotic coverage, patient has been afebrile, current antiemetic coverage remains with meropenem and vancomycin. Patient denies any worsening dyspnea, cough or congestion, he is quite weak however. Hematology is following and patient has been started on Zarxio. We'll continue to closely follow I performed a history & physical examination of the patient and discussed their management with my nurse practitioner, Ladonna Jain. I reviewed the nurse practitioner's note and agree with the documented findings and plan of care. Lung sounds are positive for diminished breath sounds. The findings and the impression was discussed with the patient. I attest to the documentation by the nurse practitioner. Time with Patient: Less than 30
--- NOTE | 2018-10-26 15:53 | P.PN ---
Subjective Progress Note Date: 10/26/18 Principal diagnosis: Admitted with anorexia and severe weakness. History of multiple myeloma, no recent treatment. Pancytopenia secondary to disease In follow-up today patient is feeling pretty tired. He had a nosebleed earlier this morning, nursing did note a maroon-colored stool this afternoon. No other bleeding noted, patient's hemoglobin was 8 this morning, his platelet count was 8000. He was started on Marinol 5 mg twice a day yesterday for anorexia, patient states he thinks it has increased his appetite. No other complaints other than weakness. Objective - Vital Signs Vital signs: Vital Signs Temp 97.7 F 10/26/18 11:57 Pulse 86 10/26/18 11:57 Resp 16 10/26/18 11:57 BP 128/71 10/26/18 11:57 Pulse Ox 96 10/26/18 11:57 Intake & Output 10/25/18 10/26/18 10/26/18 18:59 06:59 18:59 Intake Total 0 1100 1000 Balance 0 1100 1000 Weight 66.678 kg Intake: IV 200 Sodium Chloride 0.9% 1, 200 000 ml @ 50 mls/hr IV . Q20H [facility] Rx#:[id number] Intake, IV Titration 400 Amount Sodium Chloride 0.9% 1, 400 000 ml @ 50 mls/hr IV . Q20H [facility] Rx#:[id number] Oral 590 600 Blood Product 0 310 Rc Irr As3 Unit 0 310 [id number] Other: Voiding Method Toilet Toilet Toilet Bedside Commode Urinal # Voids 2 1 # Bowel Movements 1 - Constitutional General appearance: Present: cooperative, no acute distress, thin - EENT Eyes: Present: anicteric sclerae, EOMI ENT: Present: hearing grossly normal - Respiratory Details: Respirations even and unlabored - Cardiovascular Rhythm: regular - Peripheral edema leg Peripheral Edema: bilateral: None - Gastrointestinal General gastrointestinal: Present: soft - Integumentary Integumentary: Present: pale - Neurologic Neurologic: Present: CNII-XII intact - Musculoskeletal Musculoskeletal: Present: generalized weakness, strength equal bilaterally - Psychiatric Psychiatric: Present: A&O x's 3, appropriate affect, intact judgment & insight - Labs CBC & Chem 7: 10/26/18 08:50 10/26/18 08:50 Labs: Abnormal Lab Results - Last 24 Hours (Table) 10/25/18 10/26/18 10/26/18 Range/Units 14:59 08:50 08:50 WBC 2.9 L (3.8-10.6) k/uL RBC 2.59 L (4.30-5.90) m/uL Hgb 8.0 L D (13.0-17.5) gm/dL Hct 24.0 L (39.0-53.0) % RDW 21.5 H (11.5-15.5) % Plt Count 8 L* (150-450) k/uL Lymphocytes # (Manual) 0.46 L (1.0-4.8) k/uL Metamyelocytes # (Man) 0.03 H (0) k/uL Myelocytes # (Manual) 0.09 H (0) k/uL Nucleated RBCs 1 H (0-0) /100 WBC Chloride 112 H (98-107) mmol/L Creatinine 0.62 L (0.66-1.25) mg/dL Calcium 8.1 L (8.4-10.2) mg/dL Crossmatch See Detail Microbiology - Last 24 Hours (Table) 10/25/18 15:18 Urine Culture - Preliminary Urine,Voided Assessment and Plan (1) Anorexia Narrative/Plan: Marinol added for appetite, patient states improvement in appetite. Prescription has been initiated through the office as this many times requires prior authorization additional paperwork. Current Visit: Yes Status: Acute Priority: High Code(s): R63.0 - ANOREXIA SNOMED Code(s): 60641798 (2) Myeloma Narrative/Plan: No recent treatment for the same. He is due to follow up with Dr. Reynolds as he completed radiation to the hip this past Monday. This is to discuss treatment options for myeloma. His appointment as 58 at noon. This has been placed in the discharge summary. Current Visit: Yes Status: Chronic Priority: Medium Code(s): C90.00 - MULTIPLE MYELOMA NOT HAVING ACHIEVED REMISSION SNOMED Code(s): 053988017 (3) Pancytopenia Narrative/Plan: Secondary to patient's disease. Patient has been unable to resume any therapy for myeloma. Hemoglobin 8, no packed red blood cells today 1 unit single donor platelets for a platelet count of 8000 and symptoms. Continue G-CSF CBC daily Current Visit: Yes Status: Acute Priority: High Code(s): D61.818 - OTHER PANCYTOPENIA SNOMED Code(s): 929942452 (4) Nausea & vomiting Narrative/Plan: Antiemetics and appetite stimulants ordered, improved today, no episodes of vomiting. Current Visit: Yes Status: Acute Priority: High Code(s): R11.2 - NAUSEA WITH VOMITING, UNSPECIFIED SNOMED Code(s): 46326665 Plan: Persistent left lung infection, questionable mass, empyema: patient has had multiple hospitalizations and complications due to this left lung mass/infection, empyema, recurrent effusion. This is persistent and still requiring workup. Concern was that performing any type of diagnostic workup could be complicated by infection. Continue treatment per IM and Pulmonary for now.
[2018-10-26] MEDS: FILGRASTIM-SNDZ 300 MCG/0.5 ML SYRINGE SQ SCH (16:13)
[2018-10-26] MEDS: SODIUM CHLORIDE 0.9% 1,000 ML IV SCH (16:13)
[2018-10-26] MEDS ORDERED: Potassium Replacement Protocol 1 EACH MISC MISCELLANE PRN (16:34)
[2018-10-26] MEDS: POTASSIUM CHLORIDE ER 20 MEQ TAB.ER PO SCH ×2 (17:41→17:51)
[2018-10-26] MEDS: HYDROmorphone 1 MG/ML 1 ML SYRINGE IVP PRN (22:20)
[2018-10-26] MEDS: CHOLESTYRAMINE (WITH SUGAR) 4 GM PACKET PO SCH (22:46)
[2018-10-26] MEDS ORDERED: VANCOMYCIN TROUGH DUE 1 EACH MISC MISCELLANE ONE (23:00)
[2018-10-27] MEDS: VANCOMYCIN 1,250 MG in SODIUM CHLORIDE 0.9% 250 ML IVPB SCH ×3 (00:16→12:30)
[2018-10-27] MEDS: oxyCODONE-APAP 10-325MG 1 EACH TAB PO PRN ×6 (00:17→21:24)
[2018-10-27] MEDS: HYDROmorphone 1 MG/ML 1 ML SYRINGE IVP PRN ×3 (02:05→10:35)
[2018-10-27 07:39] LABS: Anion Gap 3 mmol/L; Blood Urea Nitrogen 14 mg/dL (9-20); Calcium 7.9 mg/dL (8.4-10.2); Carbon Dioxide 24 mmol/L (22-30); Chloride 117 mmol/L (98-107); Glucose 91 mg/dL (74-99); Potassium 3.7 mmol/L (3.5-5.1); Sodium 144 mmol/L (137-145)
[2018-10-27] MEDS: MEROPENEM 1 GM in SODIUM CHLORIDE 0.9% 100 ML IVPB SCH ×3 (07:46→23:43)
[2018-10-27] MEDS: ACYCLOVIR 200 MG CAP PO SCH ×2 (07:50→21:24)
[2018-10-27] MEDS: DRONABINOL 2.5 MG CAP PO SCH ×2 (07:50→15:52)
[2018-10-27] MEDS: PANTOPRAZOLE 40 MG/10 ML VIAL IVP SCH ×2 (07:51→21:23)
[2018-10-27] MEDS: GABAPENTIN 300 MG CAP PO SCH ×3 (07:51→21:24)
[2018-10-27] MEDS: MEGESTROL 400 MG/10 ML CUP PO SCH (07:51)
[2018-10-27] MEDS: CHOLESTYRAMINE (WITH SUGAR) 4 GM PACKET PO SCH ×3 (07:51→21:23)
[2018-10-27 07:52] LABS: Anisocytosis Moderate; HCT 22.4 % (39.0-53.0); HGB 7.4 gm/dL (13.0-17.5); MCH 31.2 pg (25.0-35.0); MCV 94.8 fL (80.0-100.0); Macrocytosis Slight; Mean Platelet Volume 7.8; RBC 2.36 m/uL (4.30-5.90); RDW 21.5 % (11.5-15.5)
[2018-10-27 07:55] LABS: Platelet Count 31 k/uL (150-450)
[2018-10-27] MEDS: SODIUM CHLORIDE 0.9% 1,000 ML IV SCH (08:03)
[2018-10-27 10:21] LABS: Band Neutrophils % 5 %; Eosinophils # (M) 0.09 k/uL (0-0.7); Lymphocytes # (M) 0.39 k/uL (1.0-4.8); Monocytes # (M) 0.09 k/uL (0-1.0); Neutrophils % (M) 76 %; Nucleated Red Blood Cells 0 /100 WBC (0-0); Total Cells Counted 100
[2018-10-27] MEDS: MULTIVITAMINS, THERA 1 EACH TAB PO SCH (12:30)
[2018-10-27] MEDS: ATORVASTATIN 40 MG TAB PO SCH (12:30)
[2018-10-27] MEDS: FOLIC ACID 1 MG TAB PO SCH (12:30)
--- NOTE | 2018-10-27 12:41 | XR ---
EXAMINATION TYPE: XR chest 1V DATE OF EXAM: 10/27/2018 HISTORY: pneumonia. REFERENCE: Previous study dated 10/25/2018. FINDINGS: Right upper lobe infiltrate persists as does the left midlung infiltrate. The heart is not enlarged. I cannot exclude a small left effusion. IMPRESSION: 1. BILATERAL INFILTRATES, UNCHANGED FROM PREVIOUS. 2. I CANNOT EXCLUDE A SMALL LEFT-SIDED INFILTRATE.
--- NOTE | 2018-10-27 15:09 | PN ---
PROGRESS NOTE DATE OF SERVICE: 10/27/2018 PRESENTING COMPLAINT: Short of breath, cough. INTERVAL HISTORY: Patient admitted with pneumonia, on IV meropenem. Did eat about 70% of his meals. Up to the bathroom. Some shortness of breath and cough is present. Resting. Does get intermittent pain. REVIEW OF SYSTEMS: Done for constitutional, cardiovascular, GI, pulmonary; relevant findings as above. CURRENT MEDICATIONS: Reviewed that include subcu filgrastim, IV meropenem, IV vancomycin. EXAMINATION: Afebrile, pulse 75, respirations 16, blood pressure 122/77, pulse ox 97% on 2 L. GENERAL APPEARANCE: Lying in bed, tired-appearing. EYES: Pupils equal. Conjunctivae normal. NECK: JVD not raised. Mass not palpable. Respiratory effort increased. LUNGS: Decreased breath sounds, especially on the left side. CARDIOVASCULAR; First and second normal. No edema. ABDOMEN: Soft, nontender. Liver and spleen not palpable. PSYCHIATRY: Alert and oriented x3. Mood and affect normal. INVESTIGATIONS: White count 3, hemoglobin 7.4, platelets 31, potassium 3.7, BUN 14, creatinine 0.63. C difficile negative. Blood cultures are negative. ASSESSMENT: 1. Right upper lobe pneumonia. 2. Chronic compression fracture of T7-T8 with radiculopathy. 3. Coronary artery disease. 4. Chronic obstructive pulmonary disease in an ex-smoker. 5. Gastroesophageal reflux disease. 6. Hyperlipidemia. 7. Essential hypertension. 8. Multiple myeloma with left chest wall PleurX with intermittent drainage. 9. Peripheral neuropathy from chemotherapy. 10.Pancytopenia from chemotherapy. 11.Chronic left pleural effusion with PleurX in place from underlying multiple myeloma. PLAN: Continue current medication and treatment including antibiotics. Care was discussed with Dr. Zacarias. Follow. MMODL / IJN: [id number] /
--- NOTE | 2018-10-27 15:30 | P.PN ---
Subjective Progress Note Date: 10/27/18 Principal diagnosis: Acute right upper lobe pneumonia in an immunosuppressed host, pancytopenia, complications of multiple myeloma, history of previous left empyema, chronic PleurX catheter in place This is a very pleasant 63-year-old male patient is well-known to me. The patie nt has history of multiple myeloma of a nonsecretory type that was diagnosed in 2009. The patient has been receiving treatment under the care of Dr. Reynolds and after 4 sessions of Velcade and Decadron the patient's underwent an autologous stem cell transplantation in 2010 and the patient remains stable 2013. A repeat bone marrow biopsy that was done on 11/02/2079 showed 60% plasma cells with norm al cytogenetics and the fish positive for translocation 11 ,14. The patient was treated with a combination of Revlimid and dexamethasone and Ixazomib. Following that, the treatment was held in general 2018 due to severe pancytopenia. Since then the patient has been having several pulmonary compli cations most significant of which was an empyema the developed in the left lung. After being treated in our facility the patient was transferred to [facility] where he underwent a thoracoscopic decortication and the Pleurx catheter insertion and the patient was transferred back to [place] for further care. At this point in time the Pleurx catheter is in place and the patient is having some limited drainage around 20-30 mL of output every other day. The patient me was also receiving radiation therapy to the left femur due to ongoing pain in that area. The patient came into the hospital because of generalized weakness, diminished appetite, and the patient reported loss in appetite without any significant nausea or vomiting. He denies having any significant worsening shortness of breath. He was coughing some colored sputum. Denied having any fever or chills. On his blood work, the patient revealed pancytopenia with a white count of 1.7 and hemoglobin of 6.2 and a platelet count of 13. The patient had a chest x-ray in the emergency department that showed a new right upper lobe pneumonia with increasing left midlung changes and left basilar opacity that has slightly worsened compared to the previous chest x-ray from 10/05/2018. The patient continues to have a Pleurx catheter in the left lung. Based on all this, the patient was admitted to the hospital and the patient was started on a combination of antibiotics. I saw this patient on the medical floor and put him on a combination of meropenem and vancomycin. The patient is currently on room air oxygen with a pulse ox of 94%. Hemodynamically stable and the patient is afebrile. Hematology oncology will be consulted and the patient will be given G-CSF for an absolute neutrophil count of 800. The patient will also receive a unit of packed RBC. Platelet counts are being monitored and the patient had a recent platelet transfusion that was given to him through oncology. On 10/26/2018 patient seen in follow-up on oncology floor. He is resting quietly in bed, appears very fatigued and weak, but he states he is feeling better. Denies any worsening shortness of breath, patient is on 4 L of oxygen with a pulse ox of 96%, he is afebrile, hemodynamically stable, no worsening shortness of breath or chest pain. Lung sounds are diminished at the left lung base, no rhonchi or wheezing noted. no cough or congestion The patient is seen today 10/27/2018 in follow-up on the oncology unit. He is awake and alert in no acute distress. His pain is well controlled. He denies any worsening shortness of breath, cough or congestion. Maintaining O2 saturations in the mid 90s on 2 L/m per nasal cannula. He is afebrile. Hemodynamically stable. Status post 1 unit of packed red blood cells. 1 unit o f platelets. Current hemoglobin 7.4. Platelet count 31,000. White count 3.0. Creatinine 0.63. C. difficile screen was negative. Urine culture negative. Blood culture reveals no growth. He remains on vancomycin and meropenem. Objective - Vital Signs Vital signs: Vital Signs Temp 97.5 F L 10/27/18 12:36 Pulse 80 10/27/18 12:36 Resp 16 10/27/18 12:36 BP 123/59 10/27/18 12:36 Pulse Ox 95 10/27/18 12:36 Intake & Output 10/26/18 10/27/18 10/27/18 18:59 06:59 18:59 Intake Total 1000 941 750 Balance 1000 941 750 Intake: IV 400 Sodium Chloride 0.9% 1, 400 000 ml @ 50 mls/hr IV . Q20H [facility] Rx#:[id number] Intake, IV Titration 400 350 Amount Meropenem 1 gm In Sodium 100 Chloride 0.9% 100 ml @ 200 mls/hr IVPB Q8HR [facility] Rx#:[id number] Sodium Chloride 0.9% 1, 400 000 ml @ 50 mls/hr IV . Q20H [facility] Rx#:[id number] Vancomycin 1,250 mg In 250 Sodium Chloride 0.9% 250 ml @ 125 mls/hr IVPB Q12H [facility] Rx#:[id number] Oral 600 590 Blood Product 351 Platelet Irr Pheresis 351 Acda Unit [id number] Other: Voiding Method Toilet Toilet Toilet # Voids 1 2 1 # Bowel Movements 1 3 - Exam GENERAL EXAM: Alert, pleasant, 63-year-old male patient, weak and fatigued, in no apparent distress. HEAD: Normocephalic/atraumatic. EYES: Normal reaction of pupils, equal size. Conjunctiva pink, sclera white. NOSE: Clear with pink turbinates. THROAT: No erythema or exudates. NECK: No masses, no JVD, no thyroid enlargement, no adenopathy. CHEST: No chest wall deformity. Symmetrical expansion. Left-sided Pleurx catheter in place LUNGS: Equal air entry with no crackles, wheeze, rhonchi or dullness. Dimi nished breath sounds over left base CVS: Regular rate and rhythm, normal S1 and S2, no gallops, no murmurs, no rubs ABDOMEN: Soft, nontender. No hepatosplenomegaly, normal bowel sounds, no guarding or rigidity. EXTREMITIES: No clubbing, no edema, no cyanosis, 2+ pulses and upper and lower extremities. MUSCULOSKELETAL: Muscle strength and tone normal. SPINE: No scoliosis or deformity SKIN: No rashes CENTRAL NERVOUS SYSTEM: No focal deficits, tone is normal in all 4 extremities. PSYCHIATRIC: Alert and oriented -3. Appropriate affect. Intact judgment and insight. - Labs CBC & Chem 7: 10/27/18 06:59 10/27/18 06:59 Labs: Abnormal Lab Results - Last 24 Hours (Table) 10/25/18 10/27/18 10/27/18 Range/Units 14:59 06:59 06:59 WBC 3.0 L (3.8-10.6) k/uL RBC 2.36 L (4.30-5.90) m/uL Hgb 7.4 L (13.0-17.5) gm/dL Hct 22.4 L (39.0-53.0) % RDW 21.5 H (11.5-15.5) % Plt Count 31 L D (150-450) k/uL Lymphocytes # (Manual) 0.39 L (1.0-4.8) k/uL Chloride 117 H (98-107) mmol/L Creatinine 0.63 L (0.66-1.25) mg/dL Calcium 7.9 L (8.4-10.2) mg/dL Crossmatch See Detail Microbiology - Last 24 Hours (Table) 10/25/18 15:18 Urine Culture - Final Urine,Voided 10/25/18 14:03 Blood Culture - Preliminary Blood No Growth after 24 hours Assessment and Plan Assessment: Assessment: 1 acute right upper lobe pneumonia in a 63-year-old male patient who is immunosuppressed. In addition there is some limited infiltration of the left midlung and chronic consolidation of left lower lobe, a residual of a previous empyema and the patient is a Pleurx catheter in place with some ongoing drainage which has dropped significantly over this past few weeks. 2 pancytopenia, a complication of multiple myeloma 3 history of a spontaneous perirenal hemorrhage along the left anterior perirenal space extending to the left kidney and left renal vein. 4 history of multiple myeloma post bone marrow transplantation 5 generalized weakness, anorexia and ongoing constitutional symptoms and weight loss, secondary to above 6 left lung empyema without evidence of any malignancy. 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 Zacarias. Lab results reviewed slightly improved today. Remains on Zarxio. We'll continue with the current medications. Remains on meropenem and vancomycin. Increase his activity as tolerated. We'll continue to follow and make further recommendations based on his clinical status. I, the cosigning physician, performed a history & physical examination of the patient. Lungs sounds with few scattered rhonchi, basilar crackles. Maintaining good O2 saturations in the 90s on 2 L/m. I discussed the assessment and plan of care with my nurse practitioner, Sona Edmond. I attest to the above note as dictated by her.
[2018-10-27] MEDS: FILGRASTIM-SNDZ 300 MCG/0.5 ML SYRINGE SQ SCH (15:52)
[2018-10-28] MEDS: VANCOMYCIN 1,250 MG in SODIUM CHLORIDE 0.9% 250 ML IVPB SCH ×2 (00:32→12:17)
[2018-10-28] MEDS: oxyCODONE-APAP 10-325MG 1 EACH TAB PO PRN ×6 (01:21→23:07)
[2018-10-28] MEDS: SODIUM CHLORIDE 0.9% 1,000 ML IV SCH ×2 (04:16→23:07)
[2018-10-28] MEDS: PANTOPRAZOLE 40 MG/10 ML VIAL IVP SCH ×2 (07:35→21:48)
[2018-10-28] MEDS: CHOLESTYRAMINE (WITH SUGAR) 4 GM PACKET PO SCH ×3 (07:35→21:48)
[2018-10-28] MEDS: ACYCLOVIR 200 MG CAP PO SCH ×2 (07:35→21:48)
[2018-10-28] MEDS: MEGESTROL 400 MG/10 ML CUP PO SCH (07:35)
[2018-10-28] MEDS: DRONABINOL 2.5 MG CAP PO SCH ×2 (07:35→16:40)
[2018-10-28] MEDS: GABAPENTIN 300 MG CAP PO SCH ×3 (07:35→21:48)
[2018-10-28] MEDS: MEROPENEM 1 GM in SODIUM CHLORIDE 0.9% 100 ML IVPB SCH ×3 (07:36→23:07)
[2018-10-28 08:10] LABS: Potassium 3.8 mmol/L (3.5-5.1)
[2018-10-28 08:11] LABS: Anion Gap 5 mmol/L; Blood Urea Nitrogen 14 mg/dL (9-20); Calcium 7.7 mg/dL (8.4-10.2); Carbon Dioxide 20 mmol/L (22-30); Chloride 117 mmol/L (98-107); Glucose 89 mg/dL (74-99); Sodium 142 mmol/L (137-145)
[2018-10-28 08:28] LABS: Anisocytosis Moderate; HCT 21.8 % (39.0-53.0); HGB 7.1 gm/dL (13.0-17.5); Hypochromasia Slight; MCH 32.3 pg (25.0-35.0); MCHC 32.8 g/dL (31.0-37.0); MCV 98.6 fL (80.0-100.0); Macrocytosis Moderate; Mean Platelet Volume 7.6; RBC 2.21 m/uL (4.30-5.90); RDW 21.2 % (11.5-15.5); WBC 1.8 k/uL (3.8-10.6)
[2018-10-28 08:41] LABS: Platelet Count 24 k/uL (150-450)
[2018-10-28 11:20] LABS: Band Neutrophils % 5 %; Eosinophils # (M) 0.14 k/uL (0-0.7); Lymphocytes # (M) 0.41 k/uL (1.0-4.8); Monocytes # (M) 0.11 k/uL (0-1.0); Neutrophils % (M) 58 %; Nucleated Red Blood Cells 0 /100 WBC (0-0); Total Cells Counted 100
[2018-10-28] MEDS: ATORVASTATIN 40 MG TAB PO SCH (12:17)
[2018-10-28] MEDS: MULTIVITAMINS, THERA 1 EACH TAB PO SCH (12:17)
[2018-10-28] MEDS: FOLIC ACID 1 MG TAB PO SCH (12:17)
--- NOTE | 2018-10-28 13:55 | P.PN ---
Subjective Progress Note Date: 10/28/18 This is a very pleasant 63-year-old male patient is well-known to me. The patient has history of multiple myeloma of a nonsecretory type that was diagnosed in 2009. The patient has been receiving treatment under the care of Dr. Reynolds and after 4 sessions of Velcade and Decadron the patient's underwent an autologous stem cell transplantation in 2010 and the patient remains stable 2013. A repeat bone marrow biopsy that was done on 11/02/2079 showed 60% plasma cells with normal cytogenetics and the fish positive for translocation 11 ,14. The patient was treated with a combination of Revlimid and dexamethasone and Ixazomib. Following that, the treatment was held in general 2019 due to severe pancytopenia. Since then the patient has been having several pulmonary complications most significant of which was an empyema the developed in the left lung. After being treated in our facility the patient was transferred to [facility] where he underwent a thoracoscopic decortication and the Pleurx catheter insertion and the patient was transferred back to [place] for further care. At this point in time the Pleurx catheter is in place and the patient is having some limited drainage around 20-30 mL of output every other day. The patient me was also receiving radiation therapy to the left femur due to ongoing pain in that area. The patient came into the hospital because of generalized weakness, diminished appetite, and the patient reported loss in appetite without any significant nausea or vomiting. He denies having any significant worsening shortness of breath. He was coughing some colored sputum. Denied having any fever or chills. On his blood work, the patient revealed pancytopenia with a white count of 1.7 and hemoglobin of 6.2 and a platelet count of 13. The patient had a chest x-ray in the emergency department that showed a new right upper lobe pneumonia with increasing left midlung changes and left basilar opacity that has slightly worsened compared to the previous chest x-ray from 10/05/2018. The patient continues to have a Pleurx catheter in the left lung. Based on all this, the patient was admitted to the hospital and the patient was started on a combination of antibiotics. I saw this patient on the medical floor and put him on a combination of meropenem and vancomycin. The patient is currently on room air oxygen with a pulse ox of 94%. Hemodynamically stable and the patient is afebrile. Hematology oncology will be consulted and the patient will be given G-CSF for an absolute neutrophil count of 800. The patient will also receive a unit of packed RBC. Platelet counts are being monitored and the patient had a recent platelet transfusion that was given to him through oncology. On 10/26/2018 patient seen in follow-up on oncology floor. He is resting quietly in bed, appears very fatigued and weak, but he states he is feeling bett er. Denies any worsening shortness of breath, patient is on 4 L of oxygen with a pulse ox of 96%, he is afebrile, hemodynamically stable, no worsening shortness of breath or chest pain. Lung sounds are diminished at the left lung base, no rhonchi or wheezing noted. no cough or congestion The patient is seen today 10/27/2018 in follow-up on the oncology unit. He is awake and alert in no acute distress. His pain is well controlled. He denies any worsening shortness of breath, cough or congestion. Maintaining O2 saturations in the mid 90s on 2 L/m per nasal cannula. He is afebrile. Hemod ynamically stable. Status post 1 unit of packed red blood cells. 1 unit of platelets. Current hemoglobin 7.4. Platelet count 31,000. White count 3.0. Creatinine 0.63. C. difficile screen was negative. Urine culture negative. Blood culture reveals no growth. He remains on vancomycin and meropenem. On 10/28/2018 the patient is lethargic and weak and laying in bed and sleeping most of the time. He is doing limited amount of activity. No worsening shortness of breath. Chest x-ray from yesterday showed a stable consolidation of the right upper lobe. The Pleurx catheter was attempted to be drained yesterday and put out only minimal amount of pleural fluids. No fever. No chills. He remains on broad-spectrum antibiotics. Hematologic profile is being monitored by hematology oncology as the patient is pancytopenia. No bleeding. Blood cultures of been negative. Remains on a combination of Merrem and vancomycin. Objective - Vital Signs Vital signs: Vital Signs Temp 98.4 F 10/28/18 11:55 Pulse 77 10/28/18 11:55 Resp 16 10/28/18 11:55 BP 122/67 10/28/18 11:55 Pulse Ox 97 10/28/18 11:55 Intake & Output 10/27/18 10/28/18 10/28/18 18:59 06:59 18:59 Intake Total 750 990 Balance 750 990 Intake: IV 400 400 Sodium Chloride 0.9% 1, 400 400 000 ml @ 50 mls/hr IV . Q20H BARBARA Rx#:[id number] Intake, IV Titration 350 Amount Meropenem 1 gm In Sodium 100 Chloride 0.9% 100 ml @ 200 mls/hr IVPB Q8HR [facility]BARA Rx#:[id number] Vancomycin 1,250 mg In 250 Sodium Chloride 0.9% 250 ml @ 125 mls/hr IVPB Q12H [facility]BARA Rx#:[id number] Oral 590 Other: Voiding Method Toilet Toilet Toilet # Voids 1 2 1 # Bowel Movements 1 - Exam GENERAL EXAM: Alert, pleasant, 63-year-old male patient, weak and fatigued, in no apparent distress. HEAD: Normocephalic/atraumatic. EYES: Normal reaction of pupils, equal size. Conjunctiva pink, sclera white. NOSE: Clear with pink turbinates. THROAT: No erythema or exudates. NECK: No masses, no JVD, no thyroid enlargement, no adenopathy. CHEST: No chest wall deformity. Symmetrical expansion. Left-sided Pleurx catheter in place LUNGS: Equal air entry with no crackles, wheeze, rhonchi or dullness. Diminished breath sounds over left base CVS: Regular rate and rhythm, normal S1 and S2, no gallops, no murmurs, no rubs ABDOMEN: Soft, nontender. No hepatosplenomegaly, normal bowel sounds, no guarding or rigidity. EXTREMITIES: No clubbing, no edema, no cyanosis, 2+ pulses and upper and lower extremities. MUSCULOSKELETAL: Muscle strength and tone normal. SPINE: No scoliosis or deformity SKIN: No rashes CENTRAL NERVOUS SYSTEM: No focal deficits, tone is normal in all 4 extremities. PSYCHIATRIC: Alert and oriented -3. Appropriate affect. Intact judgment and insight. - Labs CBC & Chem 7: 10/28/18 07:25 10/28/18 07:25 Labs: Abnormal Lab Results - Last 24 Hours (Table) 10/28/18 10/28/18 Range/Units 07:25 07:25 WBC 1.8 L (3.8-10.6) k/uL RBC 2.21 L (4.30-5.90) m/uL Hgb 7.1 L (13.0-17.5) gm/dL Hct 21.8 L (39.0-53.0) % RDW 21.2 H (11.5-15.5) % Plt Count 24 L (150-450) k/uL Neutrophils # (Manual) 1.10 L (1.3-7.7) k/uL Lymphocytes # (Manual) 0.41 L (1.0-4.8) k/uL Chloride 117 H (98-107) mmol/L Carbon Dioxide 20 L (22-30) mmol/L Creatinine 0.65 L (0.66-1.25) mg/dL Calcium 7.7 L (8.4-10.2) mg/dL Microbiology - Last 24 Hours (Table) 10/25/18 14:03 Blood Culture - Preliminary Blood No Growth after 48 hours Assessment and Plan Plan: Assessment: 1 acute right upper lobe pneumonia in a 63-year-old male patient who is immunosuppressed. In addition there is some limited infiltration of the left midlung and chronic consolidation of left lower lobe, a residual of a previous empyema and the patient is a Pleurx catheter in place with some ongoing drainage which has dropped significantly over this past few weeks. The catheter was drained yesterday and there was no significant output noted. Remains on broad- spectrum antibiotics regarding the right upper lobe patchy pneumonia and the patient's chest x-ray from yesterday showed no improvement. 2 pancytopenia, a complication of multiple myeloma 3 history of a spontaneous perirenal hemorrhage along the left anterior perirenal space extending to the left kidney and left renal vein. 4 history of multiple myeloma post bone marrow transplantation 5 generalized weakness, anorexia and ongoing constitutional symptoms and weight loss, secondary to above 6 left lung empyema without evidence of any malignancy. The patient is undergone thoracotomy with decortication and the cultures of been negative and the patient has a Pleurx catheter in place output of which is minimal at this point in time 7 coronary artery disease with previous coronary stent insertion and cardiac catheterization, currently free of any chest pain 8 COPD 9 hypertension 10 hyperlipidemia 11 known history of coronary artery disease 12 previous history of bone marrow transplantation and the patient undergone stem cell transplant in 2010 13 chronic back pain and myeloma related lytic lesions throughout the skeletal system 14 peripheral neuropathy 15 peptic ulcer disease 16 hip pain completed radiation therapy Plan Monitor the hematologic profile. The patient's white cell count is at 1.8 and absolute neutrophil count is 1.1. The patient is on broad-spectrum antibiotics. Monitor chest x-ray and obtain a repeat film in a.m. No sedated and output from the Pleurx catheter in empyema on the left.
[2018-10-28] MEDS: FILGRASTIM-SNDZ 300 MCG/0.5 ML SYRINGE SQ SCH (16:40)
[2018-10-28] MEDS ORDERED: VANCOMYCIN TROUGH DUE 1 EACH MISC MISCELLANE ONE (23:00)
--- NOTE | 2018-10-28 23:56 | PN ---
PROGRESS NOTE DATE OF SERVICE: October 28, 2018. PRESENTING COMPLAINT: Cough. INTERVAL HISTORY: Patient admitted with pneumonia, on IV meropenem, feeling better. Breathing is getting better. Still a bit short of breath. Has got a left-sided PleurX that drains intermittently. REVIEW OF SYSTEMS: Done for constitutional, cardiovascular, GI, pulmonary; relevant findings as above. CURRENT MEDICATIONS: Reviewed that include IV meropenem and IV vancomycin. EXAMINATION: VITAL SIGNS: Temp 98.4, pulse 77, respiratory rate 16, blood pressure 122/67, pulse ox 97% on 2 L. GENERAL APPEARANCE: Sitting up, looking more peppier. EYES: Pupils are equal. Conjunctivae normal. NECK: JVD not raised. Mass not palpable. RESPIRATORY: Effort increased. LUNGS: Decreased breath sounds. CARDIOVASCULAR: First and second sounds normal. No edema. ABDOMEN: Soft, nontender. Liver and spleen not palpable. PSYCHIATRY: Alert and oriented x3. Mood and affect normal. INVESTIGATIONS: White count 1.8, hemoglobin 7.1, platelets 24, potassium 3.8. ASSESSMENT: 1. Right upper lobe pneumonia with clinical response. 2. Chronic compression fracture of T7-T8 with radiculopathy. 3. Coronary artery disease. 4. Chronic obstructive pulmonary disease in an ex smoker. 5. Gastroesophageal reflux disease. 6. Hyperlipidemia. 7. Essential hypertension. 8. Multiple myeloma with left chest wall PleurX with intermittent drainage. 9. Peripheral neuropathy from chemotherapy. 10.Pancytopenia due to chemotherapy. 11.Chronic left pleural effusion, felt to be from multiple myeloma, PleurX in place. PLAN: Continue current medication and treatment plan. Care was discussed with the patient. Encouraged to be out of bed. Continue. MMODL / IJN: [id number] /
[2018-10-29] MEDS: VANCOMYCIN 1,250 MG in SODIUM CHLORIDE 0.9% 250 ML IVPB SCH (00:21)
[2018-10-29] MEDS: oxyCODONE-APAP 10-325MG 1 EACH TAB PO PRN ×5 (04:14→23:11)
[2018-10-29] MEDS: DRONABINOL 2.5 MG CAP PO SCH ×2 (07:59→17:18)
[2018-10-29] MEDS: MEGESTROL 400 MG/10 ML CUP PO SCH (08:00)
[2018-10-29] MEDS: FOLIC ACID 1 MG TAB PO SCH (08:00)
[2018-10-29] MEDS: GABAPENTIN 300 MG CAP PO SCH ×3 (08:00→21:54)
[2018-10-29] MEDS: ACYCLOVIR 200 MG CAP PO SCH ×2 (08:00→20:39)
[2018-10-29] MEDS: CHOLESTYRAMINE (WITH SUGAR) 4 GM PACKET PO SCH ×3 (08:00→21:54)
[2018-10-29] MEDS: MULTIVITAMINS, THERA 1 EACH TAB PO SCH (08:00)
[2018-10-29] MEDS: PANTOPRAZOLE 40 MG/10 ML VIAL IVP SCH ×2 (08:01→20:39)
[2018-10-29] MEDS: MEROPENEM 1 GM in SODIUM CHLORIDE 0.9% 100 ML IVPB SCH ×3 (08:01→23:11)
[2018-10-29 11:13] LABS: Anisocytosis Moderate; HCT 21.4 % (39.0-53.0); MCH 31.6 pg (25.0-35.0); MCHC 32.9 g/dL (31.0-37.0); MCV 96.1 fL (80.0-100.0); Macrocytosis Slight; Mean Platelet Volume 8.2; Platelet Count 8 k/uL (150-450); RBC 2.23 m/uL (4.30-5.90); RDW 21.1 % (11.5-15.5)
[2018-10-29 11:21] LABS: Anion Gap 3 mmol/L; Blood Urea Nitrogen 14 mg/dL (9-20); Calcium 8.1 mg/dL (8.4-10.2); Carbon Dioxide 22 mmol/L (22-30); Chloride 115 mmol/L (98-107); Glucose 103 mg/dL (74-99); Potassium 3.6 mmol/L (3.5-5.1); Sodium 140 mmol/L (137-145)
[2018-10-29] MEDS: ATORVASTATIN 40 MG TAB PO SCH (11:42)
[2018-10-29 12:27] LABS: Band Neutrophils % 5 %; Lymphocytes # (M) 0.72 k/uL (1.0-4.8); Metamyelocytes # (M) 0.02 k/uL (0); Metamyelocytes % 1 %; Monocytes # (M) 0.12 k/uL (0-1.0); Myelocytes # (M) 0.02 k/uL (0); Myelocytes % 1 %; Neutrophils % (M) 48 %; Nucleated Red Blood Cells 0 /100 WBC (0-0); Total Cells Counted 200
[2018-10-29 12:28] LABS: Dohle Bodies Present; Poikilocytosis (M) Present
--- NOTE | 2018-10-29 13:23 | P.PN ---
Subjective Progress Note Date: 10/29/18 Principal diagnosis: Acute right upper lobe pneumonia in an immunosuppressed host, pancytopenia, complication of multiple myeloma, history of previous left empyema chronic Pleurix catheter in place This is a very pleasant 63-year-old male patient is well-known to me. The patient has history of multiple myeloma of a nonsecretory type that was diagnosed in 2009. The patient has been receiving treatment under the care of Dr. Reynolds and after 4 sessions of Velcade and Decadron the patient's underwent an autologous stem cell transplantation in 2010 and the patient remains stable 2013. A repeat bone marrow biopsy that was done on 11/02/2079 showed 60% plasma cells with normal cytogenetics and the fish positive for translocation 11 ,14. The patient was treated with a combination of Revlimid and dexamethasone and Ixazomib. Following that, the treatment was held in general 2018 due to severe pancytopenia. Since then the patient has been having several pulmonary complic ations most significant of which was an empyema the developed in the left lung. After being treated in our facility the patient was transferred to [facility] where he underwent a thoracoscopic decortication and the Pleurx catheter insertion and the patient was transferred back to [place] for further care. At this point in time the Pleurx catheter is in place and the patient is having some limited drainage around 20-30 mL of output every other day. The patient me was also receiving radiation therapy to the left femur due to ongoing pain in that area. The patient came into the hospital because of generalized weakness, diminished appetite, and the patient reported loss in appetite without any significant nausea or vomiting. He denies having any significant worsening shortness of breath. He was coughing some colored sputum. Denied having any fever or chills. On his blood work, the patient revealed pancytopenia with a white count of 1.7 and hemoglobin of 6.2 and a platelet count of 13. The patient had a chest x-ray in the emergency department that showed a new right upper lobe pneumonia with increasing left midlung changes and left basilar opacity that has slightly worsened compared to the previous chest x-ray from 10/05/2018. The patient continues to have a Pleurx catheter in the left lung. Based on all this, the patient was admitted to the hospital and the patient was started on a combination of antibiotics. I saw this patient on the medical floor and put him on a combination of meropenem and vancomycin. The patient is currently on room air oxygen with a pulse ox of 94%. Hemodynamically stable and the patient is afebrile. Hematology oncology will be consulted and the patient will be given G-CSF for an absolute neutrophil count of 800. The patient will also receive a unit of packed RBC. Platelet counts are being monitored and the patient had a recent platelet transfusion that was given to him through oncology. On 10/26/2018 patient seen in follow-up on oncology floor. He is resting quietly in bed, appears very fatigued and weak, but he states he is feeling better. Denies any worsening shortness of breath, patient is on 4 L of oxygen w ith a pulse ox of 96%, he is afebrile, hemodynamically stable, no worsening shortness of breath or chest pain. Lung sounds are diminished at the left lung base, no rhonchi or wheezing noted. no cough or congestion On 10/29/2018 patient seen in follow-up on oncology floor. He is resting in bed, in no acute distress, room air pulse ox is 93%, afebrile, hemodynamically stable, patient states he feels a lot stronger compared to his preadmission status, he is been ambulating about the room on oxygen, tolerating activity well, his appetite is improving, denies any chest pain, denies any cough or congestion, no fever or chills. Today's labs have been reviewed, and patient's white blood cell count is 2.0, hemoglobin is 7.0, platelet count is 8, sodium is 140, potassium 3.6, chloride is 1:15, BUN is 14 creatinine 0.64. he will be transfused with the unit of platelets, and he remains on Xarzio. Antibiotic coverage in the form of cefepime and vancomycin. Lung sounds are diminished over left lower lobe, with a few scattered rhonchi on the right. No acute events overnight, we will attempt to drain the left-sided Pleurx catheter today, then the fluid will be sent for cultures, blood and urine cultures showed no growth. Objective - Vital Signs Vital signs: Vital Signs Temp 98.9 F 10/29/18 12:18 Pulse 86 10/29/18 12:18 Resp 17 10/29/18 12:18 BP 149/76 10/29/18 12:18 Pulse Ox 93 L 10/29/18 12:18 Intake & Output 10/28/18 10/29/18 10/29/18 18:59 06:59 18:59 Intake Total 2780 Balance 2780 Weight 66.678 kg Intake: IV 600 Sodium Chloride 0.9% 1, 600 000 ml @ 50 mls/hr IV . Q20H [facility]BARA Rx#:[id number] Intake, IV Titration 750 Amount Meropenem 1 gm In Sodium 100 Chloride 0.9% 100 ml @ 200 mls/hr IVPB Q8HR [facility] Rx#:[id number] Sodium Chloride 0.9% 1, 400 000 ml @ 50 mls/hr IV . Q20H [facility]BARA Rx#:[id number] Vancomycin 1,250 mg In 250 Sodium Chloride 0.9% 250 ml @ 125 mls/hr IVPB Q12H [facility]BAR[facility] Rx#:[id number] Oral 1430 Other: Voiding Method Toilet Toilet # Voids 1 2 # Bowel Movements 1 1 - Exam GENERAL EXAM: Alert, pleasant, 63-year-old white male, on 1 L of oxygen, comfortable in no apparent distress. Appears more upbeat, and stronger on today's exam HEAD: Normocephalic/atraumatic. EYES: Normal reaction of pupils, equal size. Conjunctiva pink, sclera white. NOSE: Clear with pink turbinates. THROAT: No erythema or exudates. NECK: No masses, no JVD, no thyroid enlargement, no adenopathy. CHEST: No chest wall deformity. Symmetrical expansion. Left-sided Pleurx catheter in place LUNGS: Equal air entry with no crackles, wheeze, rhonchi or dullness. Diminished breath sounds over left base CVS: Regular rate and rhythm, normal S1 and S2, no gallops, no murmurs, no rubs ABDOMEN: Soft, nontender. No hepatosplenomegaly, normal bowel sounds, no guarding or rigidity. EXTREMITIES: No clubbing, no edema, no cyanosis, 2+ pulses and upper and lower extremities. MUSCULOSKELETAL: Muscle strength and tone normal. SPINE: No scoliosis or deformity SKIN: No rashes CENTRAL NERVOUS SYSTEM: Alert and oriented -3. No focal deficits, tone is normal in all 4 extremities. PSYCHIATRIC: Alert and oriented -3. Appropriate affect. Intact judgment and insight. - Labs CBC & Chem 7: 10/29/18 10:26 10/29/18 10:26 Labs: Abnormal Lab Results - Last 24 Hours (Table) 10/29/18 10/29/18 Range/Units 10:26 10:26 WBC 2.0 L (3.8-10.6) k/uL RBC 2.23 L (4.30-5.90) m/uL Hgb 7.0 L (13.0-17.5) gm/dL Hct 21.4 L (39.0-53.0) % RDW 21.1 H (11.5-15.5) % Plt Count 8 L* D (150-450) k/uL Neutrophils # (Manual) 1.00 L (1.3-7.7) k/uL Lymphocytes # (Manual) 0.72 L (1.0-4.8) k/uL Metamyelocytes # (Man) 0.02 H (0) k/uL Myelocytes # (Manual) 0.02 H (0) k/uL Chloride 115 H (98-107) mmol/L Creatinine 0.64 L (0.66-1.25) mg/dL Glucose 103 H (74-99) mg/dL Calcium 8.1 L (8.4-10.2) mg/dL Microbiology - Last 24 Hours (Table) 10/25/18 14:03 Blood Culture - Preliminary Blood No Growth after 72 hours Assessment and Plan Plan: Assessment: 1 acute right upper lobe pneumonia in a 63-year-old male patient who is immunosuppressed with an absolute neutrophil count of 800. In addition there is some limited infiltration of the left midlung and chronic consolidation of left lower lobe, a residual of a previous empyema and the patient is a Pleurx catheter in place with some ongoing drainage which has dropped significantly over this past few weeks. 2 pancytopenia, a complication of multiple myeloma 3 history of a spontaneous perirenal hemorrhage along the left anterior periren al space extending to the left kidney and left renal vein. 4 history of multiple myeloma post bone marrow transplantation 5 generalized weakness, anorexia and ongoing constitutional symptoms and weight loss, secondary to above 6 left lung empyema without evidence of any malignancy. The patient is undergone thoracotomy with decortication and the cultures of been negative and the patient has a Pleurx catheter in place output of which is minimal at this point in time 7 coronary artery disease with previous coronary stent insertion and cardiac catheterization, currently free of any chest pain 8 COPD 9 hypertension 10 hyperlipidemia 11 known history of coronary artery disease 12 previous history of bone marrow transplantation and the patient undergone stem cell transplant in 2010 13 chronic back pain and myeloma related lytic lesions throughout the skeletal system 14 peripheral neuropathy 15 peptic ulcer disease 16 hip pain completed radiation therapy Plan: Continue with the same antibiotics, cultures are negative thus far, we'll attempt to drain the left-sided proximal catheter again today, and the fluid will be sent for cultures, clinically patient is asymptomatic, he is stronger, he is tolerating ambulation, his appetite is improving, he will be transfused with platelets today, remains on Xarzio. Patient could potentially be discharged home today, along his platelet administration. We'll continue to follow. I performed a history & physical examination of the patient and discussed their management with my nurse practitioner, Ladonna Jain. I reviewed the nurse practitioner's note and agree with the documented findings and plan of care. Lung sounds are positive for diminished breath sounds. The findings and the impression was discussed with the patient. I attest to the documentation by the nurse practitioner. Time with Patient: Less than 30
--- NOTE | 2018-10-29 14:47 | XR ---
EXAMINATION TYPE: XR chest 2V DATE OF EXAM: 10/29/2018 COMPARISON: 10/27/2018 HISTORY: Shortness of breath TECHNIQUE: Frontal and lateral views of the chest are obtained. FINDINGS: Left lower lobe pleural catheter is in place. Persistent pleural-parenchymal opacity left lower lobe and persistent infiltrate right upper lobe does appear to have improved. No sizable pneumothorax pres ent. Heart size is stable. Mediastinal structures are stable and grossly unremarkable. No evidence for hilar prominence. Degenerative changes dorsal spine. IMPRESSION: 1. Left lower lobe pleural catheter is in place. Persistent pleural-parenchymal opacity left lower lo be and persistent infiltrate right upper lobe does appear to have improved. No sizable pneumothorax p resent.
[2018-10-29] MEDS: FILGRASTIM-SNDZ 300 MCG/0.5 ML SYRINGE SQ SCH (15:28)
--- NOTE | 2018-10-29 16:24 | P.PN ---
Subjective Progress Note Date: 10/29/18 Principal diagnosis: Multiple Myeloma Overall feeling better, PLatlets are 8 today and Hemoglobin 7. Primary team is planning on discharge, but will transfuse prior. ttempted to drain from pleurex this weekend, although only minimal out. Remains Afebrile, persistent Pancytopenia and receiving G-CSF and transfusional support. Objective - Vital Signs Vital signs: Vital Signs Temp 98.2 F 10/29/18 05:00 Pulse 76 10/29/18 05:00 Resp 16 10/29/18 05:00 BP 118/63 10/29/18 05:00 Pulse Ox 97 10/29/18 08:24 Intake & Output 10/28/18 10/29/18 10/29/18 18:59 06:59 18:59 Intake Total 2780 Balance 2780 Weight 66.678 kg Intake: IV 600 Sodium Chloride 0.9% 1, 600 000 ml @ 50 mls/hr IV . Q20H [facility] Rx#:[id number] Intake, IV Titration 750 Amount Meropenem 1 gm In Sodium 100 Chloride 0.9% 100 ml @ 200 mls/hr IVPB Q8HR [facility] Rx#:[id number] Sodium Chloride 0.9% 1, 400 000 ml @ 50 mls/hr IV . Q20H [facility] Rx#:[id number] Vancomycin 1,250 mg In 250 Sodium Chloride 0.9% 250 ml @ 125 mls/hr IVPB Q12H [facility] Rx#:[id number] Oral 1430 Other: Voiding Method Toilet Toilet # Voids 1 2 # Bowel Movements 1 1 - Exam - Constitutional General appearance: Present: cooperative, no acute distress, thin - EENT Eyes: Present: anicteric sclerae, EOMI ENT: Present: hearing grossly normal - Respiratory Details: Respirations even and unlabored - Cardiovascular Rhythm: regular - Peripheral edema leg Peripheral Edema: bilateral: None - Gastrointestinal General gastrointestinal: Present: soft - Integumentary Integumentary: Present: pale - Neurologic Neurologic: Present: CNII-XII intact - Musculoskeletal Musculoskeletal: Present: generalized weakness, strength equal bilaterally - Psychiatric Psychiatric: Present: A&O x's 3, appropriate affect, intact judgment & insight - Labs CBC & Chem 7: 10/29/18 10:26 10/29/18 10:26 Labs: Abnormal Lab Results - Last 24 Hours (Table) 10/29/18 10/29/18 Range/Units 10:26 10:26 WBC 2.0 L (3.8-10.6) k/uL RBC 2.23 L (4.30-5.90) m/uL Hgb 7.0 L (13.0-17.5) gm/dL Hct 21.4 L (39.0-53.0) % RDW 21.1 H (11.5-15.5) % Chloride 115 H (98-107) mmol/L Creatinine 0.64 L (0.66-1.25) mg/dL Glucose 103 H (74-99) mg/dL Calcium 8.1 L (8.4-10.2) mg/dL Microbiology - Last 24 Hours (Table) 10/25/18 14:03 Blood Culture - Preliminary Blood No Growth after 72 hours Assessment and Plan Plan: Assessment and Recommendations: Multiple Myeloma: - Details per HPI - Treatment currently on hold for pancytopenia, recent progression of disease and prolonged hospital stay for decortication and empyema Pancytopenia:Secondary to Malignancy and Chemotherapy - Continue to monitor CBC - Transfusion support PRN, Hgb less than 7, PLatelets less than 10 - He is recieving a unit of platlets and pRBC today and will be discharged after. He will follow-up in office this week for a CBC check. - G-CSF continued while admitted and treated for infection, WBC do show improvement today Intractable Nausea and Vomiting: - Likely secondary to constipation and ya - Improving on IV Hydration and antiemetics Oral ya: - Add Jong antifungals Constipation: - Recent increase in narcotics - Recent decrease in activity related to Left femoral head lesion and prolonged hospital stay for pulmonary infection Nausea & vomiting - Antiemetics PRN - Improved since admission - Marinol as an appetite stimulants ordered, improved today, no episodes of vomiting. - Continue Marinol at discharge Left Lung Empyema and Persistent Infection: - Persistent left lung infection, questionable mass, empyema. - Patient has had multiple hospitalizations and complications due to this left lung mass/infection, empyema, recurrent effusion. T - Pleurex in place and pulmonary and Cardiothorax is following - This is persistent and still requiring workup. Concern was that performing any type of diagnostic workup could be complicated by infection. - Continue treatment per IM and Pulmonary for now. Plan: - Transfusion Platlets and PRBC today, One Hour CBC check post transfusions, Discharge per medicine. - Follow-up in office on Monday or this week for CBC check. As he has been transfusion dependent since not able to resume Myeloma Regimen - Follow-up in [address] Gail Sargent, JIMMIEP
[2018-10-29] MEDS: SODIUM CHLORIDE 0.9% 1,000 ML IV SCH (17:03)
[2018-10-29] MEDS ORDERED: VANCOMYCIN 1,250 MG in SODIUM CHLORIDE 0.9% 250 ML IVPB SCH (21:00)
[2018-10-29 21:23] VITALS: RESP 16
--- NOTE | 2018-10-30 03:15 | PN ---
PROGRESS NOTE DATE OF SERVICE: October 29, 2018. PRESENT COMPLAINT: Short of breath. INTERVAL HISTORY: Patient admitted with pneumonia and IV meropenem. Doing much better. Minimal cough. Has been up and about in the room. Has a left-sided PleurX that drains from multiple myeloma. Clinically much improved. Overall looking much better. REVIEW OF SYSTEMS: Done for constitutional, cardiovascular, GI, pulmonary; relevant findings as above. CURRENT MEDICATIONS: Reviewed that include IV meropenem and IV vancomycin. EXAMINATION: Afebrile. Pulse 75, respiratory 18, blood pressure 113/70, pulse ox 97 percent. General appearance: Sitting up, looking much better. EYES: Pupils equal. Conjunctivae normal. NECK: JVD not raised. Mass not palpable. RESPIRATORY: Effort increased. LUNGS: Decreased breath sounds. CARDIOVASCULAR : First and second sounds normal. No edema. ABDOMEN: Soft, nontender. Liver and spleen not palpable. PSYCHIATRY: Alert and oriented x3. Mood and affect normal. INVESTIGATIONS: White count 2, hemoglobin 7, platelets 8, potassium 3.6, BUN 14, creatinine 0.64. ASSESSMENT: 1. Right upper lobe pneumonia with good clinical response. 2. Chronic compression fracture of T7-T8 with radiculopathy. 3. Coronary artery disease. 4. Chronic obstructive pulmonary disease in an ex-smoker. 5. Gastroesophageal reflux disease. 6. Hyperlipidemia. 7. Essential hypertension. 8. Multiple myeloma left chest wall PleurX with intermittent drainage. 9. Peripheral neuropathy from chemotherapy. 10.Pancytopenia due to chemotherapy with a platelet count now below with severe thrombocytopenia. 11.Chronic left pleural effusion, felt to be from multiple myeloma. Pleur-X in place. Has been worked up in the past. PLAN: Platelets were ordered. Also Dr. Morejon ordered Dr. Beau Watt to coordinate antibiotics. Chest x-ray shows left lower lobe pleural catheter in place and persistent pleural parenchymal opacity left lower lobe and infiltrate right upper lobe is improved. Await input from Dr. Watt. Platelets being transfused. MMODL / IJN: [id number] /
[2018-10-30] MEDS: oxyCODONE-APAP 10-325MG 1 EACH TAB PO PRN ×3 (03:52→14:52)
[2018-10-30 07:38] LABS: Anisocytosis Slight; HCT 24.2 % (39.0-53.0); HGB 8.1 gm/dL (13.0-17.5); MCH 31.6 pg (25.0-35.0); MCHC 33.7 g/dL (31.0-37.0); MCV 93.8 fL (80.0-100.0); Macrocytosis Slight; Mean Platelet Volume 8.6; Poikilocytosis Slight; RBC 2.58 m/uL (4.30-5.90); RDW 19.7 % (11.5-15.5); WBC 2.6 k/uL (3.8-10.6)
[2018-10-30] MEDS: DRONABINOL 2.5 MG CAP PO SCH (07:44)
[2018-10-30] MEDS: MULTIVITAMINS, THERA 1 EACH TAB PO SCH (07:44)
[2018-10-30] MEDS: ATORVASTATIN 40 MG TAB PO SCH (07:44)
[2018-10-30] MEDS: ACYCLOVIR 200 MG CAP PO SCH (07:44)
[2018-10-30] MEDS: GABAPENTIN 300 MG CAP PO SCH (07:44)
[2018-10-30] MEDS: PANTOPRAZOLE 40 MG/10 ML VIAL IVP SCH (07:44)
[2018-10-30] MEDS: FOLIC ACID 1 MG TAB PO SCH (07:46)
[2018-10-30] MEDS: MEGESTROL 400 MG/10 ML CUP PO SCH (07:46)
[2018-10-30] MEDS: CHOLESTYRAMINE (WITH SUGAR) 4 GM PACKET PO SCH (07:46)
[2018-10-30 07:52] LABS: Platelet Count 31 k/uL (150-450)
[2018-10-30 07:56] LABS: Anion Gap 6 mmol/L; Blood Urea Nitrogen 15 mg/dL (9-20); Calcium 8.4 mg/dL (8.4-10.2); Carbon Dioxide 21 mmol/L (22-30); Chloride 114 mmol/L (98-107); Glucose 88 mg/dL (74-99); Sodium 141 mmol/L (137-145)
[2018-10-30] MEDS: MEROPENEM 1 GM in SODIUM CHLORIDE 0.9% 100 ML IVPB SCH (08:07)
--- NOTE | 2018-10-30 09:11 | P.CONS ---
History of Present Illness - Reason for Consult Consult date: 10/30/18 Pneumonia - History of Present Illness This is a 63-year-old male with history of multiple myeloma of a nonsecretory type that was diagnosed in 2009. The patient has been receiving treatment under the care of Dr. Reynolds and after 4 sessions of Velcade and Decadron the patient's underwent an autologous stem cell transplantation in 2010 and the patient remained stable 2013. A repeat bone marrow biopsy that was done on 11/01/2017 showed 60% plasma cells with normal cytogenetics and the fish positive for translocation 11 ,14. The patient was treated with a combination of Revlimid and dexamethasone and Ixazomib. Following that, the treatment was held in general 2019 due to severe pancytopenia. Since then the patient has been having several pulmonary complications most significant of which was an empyema the developed in the left lung. After being treated in our facility the patient was transferred to [facility] where he underwent a thoracoscopic decortication and the Pleurx catheter insertion and the patient was transferred back to [facility] for further care. At this point in time the Pleurx catheter is in place and the patient is having some limited drainage around 20-30 mL of output every other day. The patient me was also receiving radiation therapy to the left femur due to ongoing pain in that area. The patient came into the hospital because of generalized weakness, diminished appetite, and the patient reported loss in appetite without any significant nausea or vomiting. He denies having any significant worsening shortness of breath. He has been treated for right upper lobe pneumonia, pancytopenia status post transfusion RBCs and platelets and started on Zarxio. Patient states that at this point, he is feeling a lot better. He has been started on Marinol and his appetite is improved and he feels that he has gained some weight. He his diarrhea has resolved as of 2 days ago. C. difficile toxin came back negative. Patient is on oxygen at 1 L nasal cannula and pulse oxing 95-99%. Patient is not home O2 dependent. He continues to have a cough but states that brings up sinus-type drainage. He has home care in place and a drain his Pleurx on Fridays. He does have a walker at home that he uses as needed. He has been on IV antibiotics the form of meropenem and vancomycin. Patient is scheduled for discharge home. Review of Systems All systems: negative Constitutional: Reports anorexia, Reports fatigue, Reports poor appetite, Reports weight gain, Reports weight loss, Denies chills, Denies fever Eyes: denies blurred vision, denies pain Ears, nose, mouth and throat: Denies dental pain, Denies dysphagia, Denies headache, Denies mouth pain, Denies nasal congestion, Denies nasal discharge, Denies sore throat, Denies vertigo Cardiovascular: Reports leg edema, Reports shortness of breath, Denies chest pain, Denies lightheadedness, Denies syncope Respiratory: Reports cough, Reports cough with sputum, Reports dyspnea, Denies excessive sputum, Denies hemoptysis, Denies home oxygen, Denies wheezing Gastrointestinal: Denies abdominal pain, Denies diarrhea, Denies nausea, Denies vomiting Genitourinary: Denies dysuria, Denies urinary retention Musculoskeletal: Denies frequent falls, Denies gait dysfunction, Denies myalgias Integumentary: Reports unusual bruising, Denies pruritus, Denies rash, Denies wounds Neurological: Denies aphasia, Denies change in mentation, Denies confusion, Denies gait dysfunction, Denies headaches, Denies numbness, Denies seizures, Denies weakness Psychiatric: Denies anxiety, Denies depression Endocrine: Denies fatigue, Denies weight change Past Medical History Past Medical History: Coronary Artery Disease (CAD), Cancer, COPD, GERD/Reflux, Hyperlipidemia, Hypertension, Myocardial Infarction (ME), Pneumonia Additional Past Medical History / Comment(s): 2009 diagnosed with multiple myeloma-tx with chemo in 2009 and in 2010 had stem cell transplant, recently found L hilar mass-has had it biopsied-negative, thrombocytopenia, MRI at [facility] 09/11/18 showed bone lesions/L femoral neck lesion-being tx with radiation, recent L pleural effusion/empyema-had decortication L lung at [facility] and has L pleurx cath in place, pt states he is on HTN med and cholesterol medications since his MIs prophylactically, gastric ulcer years ago, low back pain, neuropathy bilateral legs/feet since chemo for multiple myeloma treated, sinus problems. Last Myocardial Infarction Date:: 01/09/14, FEB 2005 History of Any Multi-Drug Resistant Organisms: None Reported Past Surgical History: Heart Catheterization, Heart Catheterization With Stent Additional Past Surgical History / Comment(s): 2011 Stem cell transplant, mult iple bone marrow bxs, 08/08/18 and 08/16/18 bronchoscopies/biopsies/needle aspiration, EGD/colonoscopy, [facility]-L lung decortication and has left Pleurx catheter drainage system in place Past Anesthesia/Blood Transfusion Reactions: No Reported Reaction Additional Past Anesthesia/Blood Transfusion Reaction / Comm: Pt states he received blood in past without reaction. Date of Last Stent Placement:: 01/09/14 Past Psychological History: No Psychological Hx Reported Smoking Status: Former smoker Past Alcohol Use History: None Reported Additional Past Alcohol Use History / Comment(s): Patient was a smoker one pack per day for 40 years and quit in June of this year. He denies any marijuana, street drug or alcohol use. He lives at home with his and dog. 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 No service and no recent travel. Past Drug Use History: None Reported - Past Family History Father Family Medical History: Cancer Additional Family Medical History / Comment(s): LUNG CA Son(s) Family Medical History: Cancer Additional Family Medical History / Comment(s): BLADDER CA Mother Family Medical History: No Reported History Additional Family Medical History / Comment(s): Mother is healthy and is 86yrs old. Medications and Allergies Home Medications Medication Instructions Recorded Confirmed Type Gabapentin [Neurontin] 600 mg PO TID 01/08/14 10/24/18 History Atorvastatin [Lipitor] 40 mg PO AC-LUNCH 03/24/14 10/24/18 History Acyclovir [Zovirax] 400 mg PO BID 08/06/18 10/24/18 History oxyCODONE-APAP 10-325MG [Percocet 1 tab PO Q4H PRN 08/22/18 10/24/18 History 10-325 mg] Famotidine 20 mg PO HS 10/05/18 10/24/18 History Ondansetron [Zofran] 4 mg PO Q12HR PRN 10/18/18 10/24/18 History Amoxicillin/Potassium Clav 1 tab PO BID 3 Days #6 tab 10/29/18 Rx [Augmentin 875-125 Tablet] Folic Acid 1 mg PO DAILY@1200 #30 tab 10/29/18 Rx Loperamide [Imodium] 2 mg PO QID PRN #20 capsule 10/29/18 Rx Multivitamins, Thera [Multivitamin 1 each PO DAILY@1200 #30 tab 10/29/18 Rx (formulary)] Allergies Allergy/AdvReac Type Severity Reaction Status Date / Time No Known Allergies Allergy Verified 10/24/18 22:23 Physical Exam Vitals: Vital Signs Temp Pulse Pulse Resp BP BP Pulse Ox 10/30/18 05:00 97.7 F 69 16 123/63 95 10/29/18 23:30 16 10/29/18 21:00 98.0 F 71 16 129/75 99 10/29/18 19:22 98.0 F 75 18 126/71 10/29/18 17:40 77 18 121/68 98 10/29/18 17:10 72 18 116/67 96 10/29/18 17:00 97.7 F 75 18 113/70 97 10/29/18 16:45 97.7 F 75 18 113/70 97 10/29/18 16:00 75 18 114/71 96 10/29/18 15:30 88 18 155/74 96 10/29/18 15:20 98.3 F 77 18 98/66 99 10/29/18 12:18 98.9 F 86 17 149/76 93 L Intake and Output 10/29/18 10/30/18 10/30/18 22:59 06:59 14:59 Intake Total 2137 590 Balance 2137 590 Intake: Intake, IV Titration 250 Amount Vancomycin 1,250 mg In 250 Sodium Chloride 0.9% 250 ml @ 125 mls/hr IVPB Q24H [facility] Rx#:[id number] Oral 960 590 Blood Product 927 Platelet Irr Pheresis 2 307 Acda Unit [id number] Rc Irr As3 Unit 310 [id number] Other: Voiding Method Toilet # Voids 1 2 # Bowel Movements 1 Gen: This is a 63-year-old male. He is sitting up in bed and appears to be comfortable and in no acute distress. The patient is able to speak in full sentences. HEENT: Head is atraumatic, normocephalic. Pupils equal, round. Sclerae is anicteric. Conjunctiva pink. Mucous membranes of the mouth are moist. White patchy and yellow patchy substance on his tongue. NECK: Supple. No JVD. No lymphadenopathy. No thyromegaly. LUNGS: Clear to auscultation. No wheezes or rhonchi. No intercostal retractions. Pleurx to the left posterior chest wall. No signs of tenderness, erythema or edema. HEART: Regular rate and rhythm. No murmur. ABDOMEN: Soft. Bowel sounds are present. No masses. No tenderness. EXTREMITIES: 2+ bilateral pedal edema. No calf tenderness. Dorsalis pedis +2 bilaterally. Significant amount of ecchymosis noted to the upper extremities NEUROLOGICAL: Patient is awake, alert and oriented x3. Cranial nerves 2 through 12 are grossly intact. Results Results: Laboratory Results WBC 2.6 k/uL (3.8-10.6) L 10/30/18 07:03 RBC 2.58 m/uL (4.30-5.90) L 10/30/18 07:03 Hgb 8.1 gm/dL (13.0-17.5) L 10/30/18 07:03 Hct 24.2 % (39.0-53.0) L 10/30/18 07:03 MCV 93.8 fL (80.0-100.0) 10/30/18 07:03 MCH 31.6 pg (25.0-35.0) 10/30/18 07:03 MCHC 33.7 g/dL (31.0-37.0) 10/30/18 07:03 RDW 19.7 % (11.5-15.5) H 10/30/18 07:03 Plt Count 31 k/uL (150-450) L D 10/30/18 07:03 Neutrophils % (Manual) 48 % 10/29/18 10:26 Band Neutrophils % 5 % 10/29/18 10:26 Lymphocytes % (Manual) 36 % 10/29/18 10:26 Monocytes % (Manual) 6 % 10/29/18 10:26 Eosinophils % (Manual) 5 % 10/29/18 10:26 Metamyelocytes % 1 % 10/29/18 10:26 Myelocytes % 1 % 10/29/18 10:26 Neutrophils # (Manual) 1.00 k/uL (1.3-7.7) L 10/29/18 10:26 Lymphocytes # (Manual) 0.72 k/uL (1.0-4.8) L 10/29/18 10:26 Monocytes # (Manual) 0.12 k/uL (0-1.0) 10/29/18 10:26 Eosinophils # (Manual) 0.10 k/uL (0-0.7) 10/29/18 10:26 Metamyelocytes # (Man) 0.02 k/uL (0) H 10/29/18 10:26 Myelocytes # (Manual) 0.02 k/uL (0) H 10/29/18 10:26 Nucleated RBCs 0 /100 WBC (0-0) 10/29/18 10:26 Manual Slide Review Performed 10/29/18 10:26 Dohle Bodies Present 10/29/18 10:26 Hypochromasia Slight 10/28/18 07:25 Poikilocytosis (manual Present 10/29/18 10:26 Anisocytosis Moderate 10/29/18 10:26 Macrocytosis Slight 10/29/18 10:26 PT 12.1 sec (9.0-12.0) H 10/24/18 22:05 INR 1.2 (<1.2) H 10/24/18 22:05 APTT 26.0 sec (22.0-30.0) 10/24/18 22:05 Sodium 141 mmol/L (137-145) 10/30/18 07:03 Potassium 4.0 mmol/L (3.5-5.1) 10/30/18 07:03 Chloride 114 mmol/L (98-107) H 10/30/18 07:03 Carbon Dioxide 21 mmol/L (22-30) L 10/30/18 07:03 Anion Gap 6 mmol/L 10/30/18 07:03 BUN 15 mg/dL (9-20) 10/30/18 07:03 Creatinine 0.66 mg/dL (0.66-1.25) 10/30/18 07:03 Est GFR (CKD-EPI)AfAm >90 (>60 ml/min/1.73 sqM) 10/30/18 07:03 Est GFR (CKD-EPI)NonAf >90 (>60 ml/min/1.73 sqM) 10/30/18 07:03 Glucose 88 mg/dL (74-99) 10/30/18 07:03 Plasma Lactic Acid Riccardo 1.1 mmol/L (0.7-2.0) 10/24/18 22:05 Calcium 8.4 mg/dL (8.4-10.2) 10/30/18 07:03 Phosphorus 2.9 mg/dL (2.5-4.5) 10/24/18 22:05 Magnesium 1.7 mg/dL (1.6-2.3) 10/26/18 08:50 Total Bilirubin 1.1 mg/dL (0.2-1.3) 10/24/18 22:05 AST 17 U/L (17-59) 10/24/18 22:05 ALT 10 U/L (21-72) L 10/24/18 22:05 Alkaline Phosphatase 95 U/L (38-126) 10/24/18 22:05 Creatine Kinase <20 U/L (55-170) L 10/25/18 11:30 Troponin I 0.021 ng/mL (0.000-0.034) 10/24/18 22:05 NT-Pro-B Natriuret Pep 25676 pg/mL 10/24/18 22:05 Total Protein 5.8 g/dL (6.3-8.2) L 10/24/18 22:05 Albumin 2.9 g/dL (3.5-5.0) L 10/24/18 22:05 Urine Color Yellow 10/25/18 15:18 Urine Appearance Clear (Clear) 10/25/18 15:18 Urine pH 7.0 (5.0-8.0) 10/25/18 15:18 Ur Specific [place] 1.020 (1.001-1.035) 10/25/18 15:18 Urine Protein Trace (Negative) H 10/25/18 15:18 Urine Glucose (UA) Negative (Negative) 10/25/18 15:18 Urine Ketones Negative (Negative) 10/25/18 15:18 Urine Blood Negative (Negative) 10/25/18 15:18 Urine Nitrite Negative (Negative) 10/25/18 15:18 Urine Bilirubin Negative (Negative) 10/25/18 15:18 Urine Urobilinogen 2.0 mg/dL (<2.0) 10/25/18 15:18 Ur Leukocyte Esterase Negative (Negative) 10/25/18 15:18 Vancomycin Trough 24.2 ug/mL 10/28/18 23:42 C. difficile (EIA) Intrp Negative (Negative) 10/27/18 01:35 Influenza Type A RNA Not Detected (Not Detectd) 10/25/18 15:00 Influenza Type B (PCR) Not Detected (Not Detectd) 10/25/18 15:00 Blood Type A Positive 10/29/18 12:34 Blood Type Recheck No 10/29/18 12:34 Antibody Screen NEGATIVE 10/29/18 12:34 Crossmatch See Detail 10/29/18 12:34 Transfuse Platelets 10/29/18 10/29/18 12:17 Spec Expiration Date 11/01/2018 - 233310/29/18 12:34 CBC & Chem 7: 10/30/18 07:03 10/30/18 07:03 Labs: Abnormal Lab Results - Last 24 Hours (Table) 10/29/18 10/29/18 10/29/18 Range/Units 10:26 10:26 12:34 WBC 2.0 L (3.8-10.6) k/uL RBC 2.23 L (4.30-5.90) m/uL Hgb 7.0 L (13.0-17.5) gm/dL Hct 21.4 L (39.0-53.0) % RDW 21.1 H (11.5-15.5) % Plt Count 8 L* D (150-450) k/uL Neutrophils # (Manual) 1.00 L (1.3-7.7) k/uL Lymphocytes # (Manual) 0.72 L (1.0-4.8) k/uL Metamyelocytes # (Man) 0.02 H (0) k/uL Myelocytes # (Manual) 0.02 H (0) k/uL Chloride 115 H (98-107) mmol/L Carbon Dioxide (22-30) mmol/L Creatinine 0.64 L (0.66-1.25) mg/dL Glucose 103 H (74-99) mg/dL Calcium 8.1 L (8.4-10.2) mg/dL Crossmatch See Detail 10/30/18 10/30/18 Range/Units 07:03 07:03 WBC 2.6 L (3.8-10.6) k/uL RBC 2.58 L (4.30-5.90) m/uL Hgb 8.1 L (13.0-17.5) gm/dL Hct 24.2 L (39.0-53.0) % RDW 19.7 H (11.5-15.5) % Plt Count 31 L D (150-450) k/uL Neutrophils # (Manual) (1.3-7.7) k/uL Lymphocytes # (Manual) (1.0-4.8) k/uL Metamyelocytes # (Man) (0) k/uL Myelocytes # (Manual) (0) k/uL Chloride 114 H (98-107) mmol/L Carbon Dioxide 21 L (22-30) mmol/L Creatinine (0.66-1.25) mg/dL Glucose (74-99) mg/dL Calcium (8.4-10.2) mg/dL Crossmatch Microbiology - Last 24 Hours (Table) 10/25/18 14:03 Blood Culture - Preliminary Blood No Growth after 96 hours Assessment and Plan Plan: this is a 63-year-old male patient with underlying history of multiple myeloma presenting with right upper lobe pneumonia most likely gram-negative pneumonia in a immunocompromised host with pancytopenia. Patient has a left lung empyema and has undergone thoracotomy and decortication and currently has Pleurx catheter in place with minimal output. Patient has been on IV antibiotics in form of meropenem and vancomycin. On this admission, blood culture showing no growth after 96 hours and urine culture was finalized with no growth. Home antibiotic therapy will be recommended. Continue supportive care. Further medications as patient progresses. The above dictated assessment and findings were discussed with Dr. Watt. The impression and plan of care have been directed as dictated. Ann-Marie Valdes nurse practitioner acting as scribe for Dr. Watt.
--- NOTE | 2018-10-30 11:09 | P.PN ---
Subjective Progress Note Date: 10/30/18 Principal diagnosis: Multiple Myeloma Platelets increased to 31K today and Hemoglobin up to 8.1. Overall he is feeling better. Objective - Vital Signs Vital signs: Vital Signs Temp 97.7 F 10/30/18 05:00 Pulse 69 10/30/18 05:00 Resp 16 10/30/18 05:00 BP 123/63 10/30/18 05:00 Pulse Ox 95 10/30/18 05:00 Intake & Output 10/29/18 10/30/18 10/30/18 18:59 06:59 18:59 Intake Total 1017 0 Balance 1017 0 Weight 66.678 kg Intake: IV 250 Sodium Chloride 0.9% 1, 250 000 ml @ 50 mls/hr IV . Q20H [facility]BARA Rx#:[id number] Intake, IV Titration 100 250 Amount Meropenem 1 gm In Sodium 100 Chloride 0.9% 100 ml @ 200 mls/hr IVPB Q8HR [facility] Rx#:[id number] Vancomycin 1,250 mg In 250 Sodium Chloride 0.9% 250 ml @ 125 mls/hr IVPB Q24H [facility]BARA Rx#:[id number] Oral 360 1190 Blood Product 307 620 Platelet Irr Pheresis 2 307 Acda Unit [id number] Rc Irr As3 Unit 0 310 [id number] Other: Voiding Method Toilet # Voids 2 # Bowel Movements 1 - Exam - Constitutional General appearance: Present: cooperative, no acute distress, thin - EENT Eyes: Present: anicteric sclerae, EOMI ENT: Present: hearing grossly normal - Respiratory Details: Respirations even and unlabored - Cardiovascular Rhythm: regular - Peripheral edema leg Peripheral Edema: bilateral: None - Gastrointestinal General gastrointestinal: Present: soft - Integumentary Integumentary: Present: pale - Neurologic Neurologic: Present: CNII-XII intact - Musculoskeletal Musculoskeletal: Present: generalized weakness, strength equal bilaterally - Psychiatric Psychiatric: Present: A&O x's 3, appropriate affect, intact judgment & insight - Labs CBC & Chem 7: 10/30/18 07:03 10/30/18 07:03 Labs: Abnormal Lab Results - Last 24 Hours (Table) 10/29/18 10/29/18 10/29/18 Range/Units 10:26 10:26 12:34 WBC 2.0 L (3.8-10.6) k/uL RBC 2.23 L (4.30-5.90) m/uL Hgb 7.0 L (13.0-17.5) gm/dL Hct 21.4 L (39.0-53.0) % RDW 21.1 H (11.5-15.5) % Plt Count 8 L* D (150-450) k/uL Neutrophils # (Manual) 1.00 L (1.3-7.7) k/uL Lymphocytes # (Manual) 0.72 L (1.0-4.8) k/uL Metamyelocytes # (Man) 0.02 H (0) k/uL Myelocytes # (Manual) 0.02 H (0) k/uL Chloride 115 H (98-107) mmol/L Carbon Dioxide (22-30) mmol/L Creatinine 0.64 L (0.66-1.25) mg/dL Glucose 103 H (74-99) mg/dL Calcium 8.1 L (8.4-10.2) mg/dL Crossmatch See Detail 10/30/18 10/30/18 Range/Units 07:03 07:03 WBC 2.6 L (3.8-10.6) k/uL RBC 2.58 L (4.30-5.90) m/uL Hgb 8.1 L (13.0-17.5) gm/dL Hct 24.2 L (39.0-53.0) % RDW 19.7 H (11.5-15.5) % Plt Count 31 L D (150-450) k/uL Neutrophils # (Manual) (1.3-7.7) k/uL Lymphocytes # (Manual) (1.0-4.8) k/uL Metamyelocytes # (Man) (0) k/uL Myelocytes # (Manual) (0) k/uL Chloride 114 H (98-107) mmol/L Carbon Dioxide 21 L (22-30) mmol/L Creatinine (0.66-1.25) mg/dL Glucose (74-99) mg/dL Calcium (8.4-10.2) mg/dL Crossmatch Microbiology - Last 24 Hours (Table) 10/29/18 16:56 Body Fluid Culture - Preliminary Pleural Fluid 10/25/18 14:03 Blood Culture - Preliminary Blood No Growth after 96 hours Assessment and Plan Plan: Assessment and Recommendations: Multiple Myeloma: - Details per HPI - Treatment currently on hold for pancytopenia, recent progression of disease and prolonged hospital stay for decortication and empyema Pancytopenia:Secondary to Malignancy and Chemotherapy - Continue to monitor CBC - Transfusion support PRN, Hgb less than 7, PLatelets less than 10 - He is recieving a unit of platlets and pRBC today and will be discharged after. He will follow-up in office this week for a CBC check. - G-CSF continued while admitted and treated for infection, WBC do show improvement today Intractable Nausea and Vomiting: - Likely secondary to constipation and ya - Improving on IV Hydration and antiemetics Oral ya: - Add Jong antifungals Constipation: - Recent increase in narcotics - Recent decrease in activity related to Left femoral head lesion and prolonged hospital stay for pulmonary infection Nausea & vomiting - Antiemetics PRN - Improved since admission - Marinol as an appetite stimulants ordered, improved today, no episodes of vomiting. - Continue Marinol at discharge Left Lung Empyema and Persistent Infection: - Persistent left lung infection, questionable mass, empyema. - Patient has had multiple hospitalizations and complications due to this left lung mass/infection, empyema, recurrent effusion. T - Pleurex in place and pulmonary and Cardiothorax is following - This is persistent and still requiring workup. Concern was that performing any type of diagnostic workup could be complicated by infection. - Continue treatment per IM and Pulmonary for now. Plan: - Ok with candida today, discussed with Pulmonary FRANKIE Bone
[2018-10-30 11:14] LABS: Band Neutrophils % 4 %; Eosinophils # (M) 0.21 k/uL (0-0.7); Lymphocytes # (M) 0.88 k/uL (1.0-4.8); Monocytes # (M) 0.21 k/uL (0-1.0); Neutrophils % (M) 47 %; Nucleated Red Blood Cells 1 /100 WBC (0-0); Total Cells Counted 200
--- NOTE | 2018-10-30 11:34 | P.PN ---
Subjective Progress Note Date: 10/30/18 Principal diagnosis: Acute right upper lobe pneumonia in an immunosuppressed host, pancytopenia, complications of multiple myeloma, history of previous left empyema, chronic PleurX catheter in place This is a very pleasant 63-year-old male patient is well-known to me. The patie nt has history of multiple myeloma of a nonsecretory type that was diagnosed in 2009. The patient has been receiving treatment under the care of Dr. Reynolds and after 4 sessions of Velcade and Decadron the patient's underwent an autologous stem cell transplantation in 2010 and the patient remains stable 2013. A repeat bone marrow biopsy that was done on 11/02/2079 showed 60% plasma cells with norm al cytogenetics and the fish positive for translocation 11 ,14. The patient was treated with a combination of Revlimid and dexamethasone and Ixazomib. Following that, the treatment was held in general 2018 due to severe pancytopenia. Since then the patient has been having several pulmonary compli cations most significant of which was an empyema the developed in the left lung. After being treated in our facility the patient was transferred to [facility] where he underwent a thoracoscopic decortication and the Pleurx catheter insertion and the patient was transferred back to [place] for further care. At this point in time the Pleurx catheter is in place and the patient is having some limited drainage around 20-30 mL of output every other day. The patient me was also receiving radiation therapy to the left femur due to ongoing pain in that area. The patient came into the hospital because of generalized weakness, diminished appetite, and the patient reported loss in appetite without any significant nausea or vomiting. He denies having any significant worsening shortness of breath. He was coughing some colored sputum. Denied having any fever or chills. On his blood work, the patient revealed pancytopenia with a white count of 1.7 and hemoglobin of 6.2 and a platelet count of 13. The patient had a chest x-ray in the emergency department that showed a new right upper lobe pneumonia with increasing left midlung changes and left basilar opacity that has slightly worsened compared to the previous chest x-ray from 10/05/2018. The patient continues to have a Pleurx catheter in the left lung. Based on all this, the patient was admitted to the hospital and the patient was started on a combination of antibiotics. I saw this patient on the medical floor and put him on a combination of meropenem and vancomycin. The patient is currently on room air oxygen with a pulse ox of 94%. Hemodynamically stable and the patient is afebrile. Hematology oncology will be consulted and the patient will be given G-CSF for an absolute neutrophil count of 800. The patient will also receive a unit of packed RBC. Platelet counts are being monitored and the patient had a recent platelet transfusion that was given to him through oncology. The patient is seen today in 10/30/2018 in follow-up on the oncology unit. He is currently awake and alert in no acute distress. He is much stronger today as compared to previous. Short of breath. He did receive platelets again yesterday. Platelet count 31. Hemoglobin 8.1. White count 2.6. He has been up ambulating with assistance. He is hoping to go home today. He's been afebrile. Hemodynamically stable. Appetite has improved with Megace. Currently on vancomycin and meropenem. Yesterday's chest x-ray was showing improvement. Objective - Vital Signs Vital signs: Vital Signs Temp 97.7 F 10/30/18 05:00 Pulse 69 10/30/18 05:00 Resp 16 10/30/18 05:00 BP 123/63 10/30/18 05:00 Pulse Ox 95 10/30/18 05:00 Intake & Output 10/29/18 10/30/18 10/30/18 18:59 06:59 18:59 Intake Total 1017 2060 Balance 1017 2060 Weight 66.678 kg Intake: IV 250 Sodium Chloride 0.9% 1, 250 000 ml @ 50 mls/hr IV . Q20H [facility]BARA Rx#:[id number] Intake, IV Titration 100 250 Amount Meropenem 1 gm In Sodium 100 Chloride 0.9% 100 ml @ 200 mls/hr IVPB Q8HR [facility] Rx#:[id number] Vancomycin 1,250 mg In 250 Sodium Chloride 0.9% 250 ml @ 125 mls/hr IVPB Q24H [facility]BARA Rx#:[id number] Oral 360 1190 Blood Product 307 620 Platelet Irr Pheresis 2 307 Acda Unit [id number] Rc Irr As3 Unit 0 310 [id number] Other: Voiding Method Toilet # Voids 2 # Bowel Movements 1 - Exam GENERAL EXAM: Alert, pleasant, 63-year-old male patient, weak and fatigued, in no apparent distress. HEAD: Normocephalic/atraumatic. EYES: Normal reaction of pupils, equal size. Conjunctiva pink, sclera white. NOSE: Clear with pink turbinates. THROAT: No erythema or exudates. NECK: No masses, no JVD, no thyroid enlargement, no adenopathy. CHEST: No chest wall deformity. Symmetrical expansion. Left-sided Pleurx catheter in place LUNGS: Equal air entry with no crackles, wheeze, rhonchi or dullness. Diminished breath sounds over left base CVS: Regular rate and rhythm, normal S1 and S2, no gallops, no murmurs, no rubs ABDOMEN: Soft, nontender. No hepatosplenomegaly, normal bowel sounds, no guarding or rigidity. EXTREMITIES: No clubbing, no edema, no cyanosis, 2+ pulses and upper and lower extremities. MUSCULOSKELETAL: Muscle strength and tone normal. SPINE: No scoliosis or deformity SKIN: No rashes CENTRAL NERVOUS SYSTEM: No focal deficits, tone is normal in all 4 extremities. PSYCHIATRIC: Alert and oriented -3. Appropriate affect. Intact judgment and insight. - Labs CBC & Chem 7: 10/30/18 07:03 10/30/18 07:03 Labs: Abnormal Lab Results - Last 24 Hours (Table) 10/29/18 10/29/18 10/30/18 Range/Units 10:26 12:34 07:03 WBC 2.6 L (3.8-10.6) k/uL RBC 2.58 L (4.30-5.90) m/uL Hgb 8.1 L (13.0-17.5) gm/dL Hct 24.2 L (39.0-53.0) % RDW 19.7 H (11.5-15.5) % Plt Count 8 L* D 31 L D (150-450) k/uL Neutrophils # (Manual) 1.00 L (1.3-7.7) k/uL Lymphocytes # (Manual) 0.72 L 0.88 L (1.0-4.8) k/uL Metamyelocytes # (Man) 0.02 H (0) k/uL Myelocytes # (Manual) 0.02 H (0) k/uL Nucleated RBCs 1 H (0-0) /100 WBC Chloride (98-107) mmol/L Carbon Dioxide (22-30) mmol/L Crossmatch See Detail 10/30/18 Range/Units 07:03 WBC (3.8-10.6) k/uL RBC (4.30-5.90) m/uL Hgb (13.0-17.5) gm/dL Hct (39.0-53.0) % RDW (11.5-15.5) % Plt Count (150-450) k/uL Neutrophils # (Manual) (1.3-7.7) k/uL Lymphocytes # (Manual) (1.0-4.8) k/uL Metamyelocytes # (Man) (0) k/uL Myelocytes # (Manual) (0) k/uL Nucleated RBCs (0-0) /100 WBC Chloride 114 H (98-107) mmol/L Carbon Dioxide 21 L (22-30) mmol/L Crossmatch Microbiology - Last 24 Hours (Table) 10/29/18 16:56 Body Fluid Culture - Preliminary Pleural Fluid 10/25/18 14:03 Blood Culture - Preliminary Blood No Growth after 96 hours Assessment and Plan Assessment: Assessment: 1 acute right upper lobe pneumonia in a 63-year-old male patient who is immunosuppressed. In addition there is some limited infiltration of the left midlung and chronic consolidation of left lower lobe, a residual of a previous empyema and the patient is a Pleurx catheter in place with some ongoing drainage which has dropped significantly over this past few weeks. 2 pancytopenia, a complication of multiple myeloma 3 history of a spontaneous perirenal hemorrhage along the left anterior perirenal space extending to the left kidney and left renal vein. 4 history of multiple myeloma post bone marrow transplantation 5 generalized weakness, anorexia and ongoing constitutional symptoms and weight loss, secondary to above 6 left lung empyema without evidence of any malignancy. 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 Morejon. Lab results improved today. Received platelets yesterday. Remains on Zarxio. He is cleared for discharge from the pulmonary standpoint. Antibiotics per infectious disease. Follow up with Dr. Zacarias in our office in 1-2 weeks' time. He is encouraged to call sooner with any pulmonary issues or concerns. He does have home oxygen if needed. I, the cosigning physician, performed a history & physical examination of the patient. Lungs sounds with few scattered rhonchi, basilar crackles. Maintaining good O2 saturations in the 90s on 1 L/m. I discussed the assessment and plan of care with my nurse practitioner, Sona Edmond. I attest to the above note as dictated by her.
[2018-10-30] MEDS ORDERED: TRIAMCINOLONE ACET 0.1% OINTMENT 15 GM TUBE TOPICAL SCH (13:15)
[2018-10-30] MEDS ORDERED: AMMONIUM LACTATE 12% LOTION 225 GM BTL TOPICAL SCH (13:15)
[2018-10-30 13:51] VITALS: BP 116/65; PULSE 82; TEMP 98
[2018-10-30] MEDS: FILGRASTIM-SNDZ 300 MCG/0.5 ML SYRINGE SQ SCH (14:52)
--- NOTE | 2018-10-30 21:50 | P.CON ---
Consult Note - . Consult date: 10/30/18 Assessment/Plan:: This is a 63-year-old male with history of multiple myeloma of a nonsecretory type that was diagnosed in 2009. The patient has been receiving treatment under the care of Dr. Reynolds and after 4 sessions of Velcade and Decadron the patient's underwent an autologous stem cell transplantation in 2010 and the patient remained stable 2013. A repeat bone marrow biopsy that was done on 11/01/2017 showed 60% plasma cells with normal cytogenetics and the fish positive for translocation 11 ,14. The patient was treated with a combination of Revlimid and dexamethasone and Ixazomib. Following that, the treatment was held in general 2019 due to severe pancytopenia. Since then the patient has been having several pulmonary complications most significant of which was an empyema the developed in the left lung. After being treated in our facility the patient was transferred to [facility] where he underwent a thoracoscopic decortication and the Pleurx catheter insertion and the patient was transferred back to [place] for further care. At this point in time the Pleurx catheter is in place and the patient is having some limited drainage around 20-30 mL of output every other day. The patient me was also receiving radiation therapy to the left femur due to ongoing pain in that area. The patient came into the hospital because of generalized weakness, diminished appetite, and the patient reported loss in appetite without any significant nausea or vomiting. He denies having any significant worsening shortness of breath. He has been treated for right upper lobe pneumonia, pancytopenia status post transfusion RBCs and platelets and started on Zarxio. Patient states that at this point, he is feeling a lot better. He has been started on Marinol and his appetite is improved and he feels that he has gained some weight. He his diarrhea has resolved as of 2 days ago. C. difficile toxin came back negative. Patient is on oxygen at 1 L nasal cannula and pulse oxing 95-99%. Patient is not home O2 dependent. He continues to have a cough but states that brings up sinus-type drainage. He has home care in place and a drain his Pleurx on Fridays. He does have a walker at home that he uses as needed. He has been on IV antibiotics the form of meropenem and vancomycin. Patient is scheduled for discharge home. Please see the consult note as dictated by nurse practitioner Mrs. Ann-Marie Valdes. 63-year-old male who has a history of multiple myeloma did present to hospital with nausea increasing weakness. Since starting Marinol he is feeling considerably better. Shortness of breath is improved. C. diff was negative. Appetite improved and pancytopenia is improved. Fortunately he has had a significant improvement since coming to Hospital. He was outpatient antibiotic therapy with Augmentin but did not have slippage improvement. Responded well to a combination of meropenem and vancomycin. However the patient also had significant supportive care given. And with improvement of his appetite he relates that his strength and activity had improved. He is ready for discharge home. Moxifloxacin 40 mg a day as sent to his pharmacy. He'll follow up with his oncologist and he can follow-up in the office if there is further concerns. I agree with evaluation, assessment and plan as dictated by nurse practitioner Mrs. Ann-Marie Valdes.
--- NOTE | 2018-10-31 07:54 | DS ---
DISCHARGE SUMMARY DATE OF ADMISSION: 10/24/2018 DATE OF DISCHARGE: 10/30/2018 FINAL DIAGNOSES: 1. Right upper lobe pneumonia, suspect gram-negative organism, POA. 2. Chronic compression fracture of T7-T8 with radiculopathy. 3. Coronary artery disease. 4. Chronic obstructive pulmonary disease in an ex-smoker. 5. Gastroesophageal reflux disease. 6. Hyperlipidemia. 7. Essential hypertension. 8. Multiple myeloma with left chest pleural effusion. The PleurX in place with intermittent drainage. 9. Peripheral neuropathy from chemotherapy. 10.Pancytopenia due to chemotherapy with severe thrombocytopenia. 11.Chronic left pleural effusion, felt to be from multiple myeloma. HOSPITAL COURSE: This patient with multiple myeloma. Also got a left pleural effusion with a PleurX in place. The patient just drained intermittently. Has been worked up for infection in the past that was negative. The patient presented with upper lobe pneumonia. Responded well to antibiotics. Seen by Dr. Watt today who is putting the patient back on Avelox. Otherwise, patient doing well, tolerating a diet, up to the bathroom. CONSULTATION: 1. Dr. Watt from infectious Disease. 2. Dr. Zacarias/Dr. Morejon from Pulmonary. 3. Dr. Blankenship from Critical Care. Initially patient did get a platelet transfusion. PHYSICAL EXAMINATION: Temperature 98, pulse 82, respiration 16, blood pressure 106/65, pulse ox 94% on room air. LUNGS: Decreased breath sounds with a left PleurX. PSYCH: Alert and oriented x3. INVESTIGATIONS: White count 2.6, hemoglobin 8.1, platelets 31, potassium 4.0. DISCHARGE MEDICATIONS: 1. Neurontin 600 mg t.i.d. 2. Lipitor 40 mg. 3. Zovirax 4 mg b.i.d. 4. Percocet 10 one tablet p.o. q.4 p.r.n. 5. Pepcid 20 mg q.h.s. 6. Zofran 4 mg q.12 p.r.n. 7. Folic acid 1 mg p.o. daily. 8. Imodium 2 mg p.o. q.i.d. p.r.n. 9. Multivitamin 1 tablet p.o. daily at noon. 10.Lac-Hydrin 1 application topical b.i.d. 11.Moxifloxacin 400 mg p.o. daily, 7 tablets. 12.Kenalog 0.1% topical b.i.d. FOLLOWUP: Follow up with Dr. Coelho on 11/06/2018; Dr. Zacarias on 11/21/2018, follow up with Dr. Spangler on 10/31/2018. MMODL / IJN: [id number] /
--- NOTE | 2018-11-01 07:16 | CDI ---
Documentation Clarification Form Date: 11/01/18 From: Kang Logan Phone: call to [phone] Admit Date: 10/24/2018 11:15:00 PM Patient Name: Fede Nicholas Visit Number: [id number] Discharge Date: 10/30/2018 4:15:00 PM ATTENTION: The Clinical Documentation Specialists (CDI) and [facility] Coding Staff appreciate your assistance in clarifying documentation. Please respond to the clarification below the line at the bottom and electronically sign. The CDI & [facility] Coding staff will review the response and follow-up if needed. Please note: Queries are made part of the Legal Health Record. If you have any questions, please contact the author of this message via ITS. Dr. Eladio Salcedo Pneumonia was documented in your notes as Upper lobe Pneumonia and in last consult note mentioned as most likely gram negative pneumonia, in discharge summary mentioned Suspect gram negative pneumonia but "sputum culture not obtained". History/Risk Factors: Pneumonia,COPD Treatment: IV abx and conservative treatment Antibiotics: Meropenem and vancomycin Sputum culture : Not obtained In order to capture the severity of condition, please clarify if the condition signifies and you are treating for: Bacterial Pneumonia, specify causal organism (if known) Gram Negative Pneumonia ?Other bacteria (please specify) Lobar Pneumonia Healthcare Acquired Pneumonia/Pneumonia, unspecified Other, please specify Unable to determine lobar pneumonia suspect gram negative organism, POA MTDD
== END 2018-10-30 16:15 | disposition home or self-care (01) | DRG 177 ==
LOC: EC 21:39 → 3NMEDONC 23:15 → 4MS4W 10-25 10:23 → 3NMEDONC 10-25 17:26
PROVIDERS: ADMIT Hospitalist; ATTEND Hospitalist
DX: J15.6 Pneumonia due to other Gram-negative bacteria (principal); D61.810 Antineoplastic chemotherapy induced pancytopenia; J86.9 Pyothorax without fistula; C90.00 Multiple myeloma not having achieved remission; M48.54XA Collapsed vertebra, not elsewhere classified, thoracic region, initial encounter for fracture; J90 Pleural effusion, not elsewhere classified; B37.0 Candidal stomatitis; J44.0 Chronic obstructive pulmonary disease with (acute) lower respiratory infection; Z94.81 Bone marrow transplant status; Z94.84 Stem cells transplant status; K59.00 Constipation, unspecified; I25.10 Atherosclerotic heart disease of native coronary artery without angina pectoris; K21.9 Gastro-esophageal reflux disease without esophagitis; E78.5 Hyperlipidemia, unspecified; F41.9 Anxiety disorder, unspecified; E86.0 Dehydration; E87.6 Hypokalemia; I10 Essential (primary) hypertension; G89.29 Other chronic pain; G62.0 Drug-induced polyneuropathy; T45.1X5A Adverse effect of antineoplastic and immunosuppressive drugs, initial encounter; M54.14 Radiculopathy, thoracic region; R04.0 Epistaxis; M54.5 Low back pain; R63.0 Anorexia; I25.2 Old myocardial infarction; Z87.01 Personal history of pneumonia (recurrent); Z87.11 Personal history of peptic ulcer disease; Z95.5 Presence of coronary angioplasty implant and graft; Z87.891 Personal history of nicotine dependence; Z79.899 Other long term (current) drug therapy; Z68.22 Body mass index [BMI] 22.0-22.9, adult; Z80.1 Family history of malignant neoplasm of trachea, bronchus and lung; Z80.52 Family history of malignant neoplasm of bladder; Z98.890 Other specified postprocedural states; Z92.3 Personal history of irradiation; Z97.8 Presence of other specified devices; Z92.21 Personal history of antineoplastic chemotherapy
CPT/HCPCS: 36415; 71045; 71046; 80048; 80053; 80202; 81003; 82550; 83605; 83735; 83880; 84100; 84484; 85025; 85610; 85730; 86850; 86900; 86901; 86920; 87040; 87070; 87077; 87086; 87186; 87205; 87324; 87502; 93005; 94760; 96360; 96361; 96365; 96366; 96375; 96376; 99285

== ENCOUNTER 2018-11-01 03:01 | Inpatient (IN) | payer MEDICARE, BC ==
[2018-11-01] MEDS ORDERED: LORazepam 2 MG/ML INJ IV STA (03:56)
[2018-11-01] MEDS ORDERED: MORPHINE SULFATE 4 MG/ML SYRINGE IV STA (03:56)
[2018-11-01 04:00] LABS: Anisocytosis Moderate; HCT 26.2 % (39.0-53.0); HGB 8.8 gm/dL (13.0-17.5); MCH 31.3 pg (25.0-35.0); MCHC 33.5 g/dL (31.0-37.0); MCV 93.5 fL (80.0-100.0); Macrocytosis Slight; Mean Platelet Volume 11.2; RDW 21.3 % (11.5-15.5); WBC 3.2 k/uL (3.8-10.6)
[2018-11-01 04:08] LABS: ALT 19 U/L (21-72); AST 20 U/L (17-59); Albumin 2.7 g/dL (3.5-5.0); Alkaline Phosphatase 77 U/L (38-126); Anion Gap 10 mmol/L; Blood Urea Nitrogen 14 mg/dL (9-20); Calcium 8.9 mg/dL (8.4-10.2); Carbon Dioxide 18 mmol/L (22-30); Chloride 112 mmol/L (98-107); Glucose 127 mg/dL (74-99); Potassium 3.8 mmol/L (3.5-5.1); Sodium 140 mmol/L (137-145); Total Bilirubin 1.3 mg/dL (0.2-1.3); Total Protein 5.5 g/dL (6.3-8.2)
[2018-11-01 04:18] LABS: INR 1.3 (<1.2); Partial Thromboplastin Time 26.3 sec (22.0-30.0); Prothrombin Time 13.3 sec (9.0-12.0)
[2018-11-01 04:22] LABS: D-Dimer 14.34 mg/L FEU (<0.60)
[2018-11-01 04:33] LABS: Platelet Count 9 k/uL (150-450)
[2018-11-01 04:42] LABS: Nucleated Red Blood Cells 0 /100 WBC (0-0)
--- NOTE | 2018-11-01 04:43 | XR ---
EXAM: XR Chest, 2 Views CLINICAL HISTORY: ITS.REASON XR Reason: difficulty breathing TECHNIQUE: Frontal and lateral views of the chest. COMPARISON: 10/29/18 FINDINGS: Suspect some increasing right lung base opacity with possible involvement of both right lower lobe and right middle lobe. Pleural parenchymal opacity at the left lung base, right upper lobe opacity, left pleural catheter and remainder of exam does not appear significantly changed allowing for differences in technique. IMPRESSION: Suspect some increasing opacity at the right lung base compared to the previous.
[2018-11-01] MEDS ORDERED: HYDROmorphone 1 MG/ML 1 ML SYRINGE IVP STA (05:00)
--- NOTE | 2018-11-01 06:05 | CT ---
EXAM: CT Angiography Chest With Intravenous Contrast CLINICAL HISTORY: ITS.REASON CT Reason: Pain TECHNIQUE: Axial computed tomographic angiography images of the chest with intravenous contrast using pulmonary embolism protocol. DLP is 540 mGy- cm. This CT exam was performed using one or more of the following dose reduction techniques: automated exposure control, adjustment of the mA and/or kV according to patient size, and/or use of iterative reconstruction technique. MIP reconstructed images were created and reviewed. COMPARISON: 08/31/[address] abdomen and pelvis October 05. FINDINGS: Limited by artifact. Cannot exclude PE in regions of artifact. No large central saddle embolus. Left pleural catheter. Decreased size of the pleural effusion since the previous CT chest. Left pleural effusion fairly similar in size to the lung base portion of CT abdomen and pelvis from October 05. There is improved aeration of the left lung compared to the previous.. Suspected atelectasis on the left. A component of mild pneumonia not definitively excluded. Patient's known left lung mass suspected to be smaller though decreased pleural parenchymal opacity on the left makes direct comparison difficult. There is increasing confluent airspace opacity in the right upper lobe along with less confluent lung opacities in the right middle and right lower lobe suspicious for pneumonia. Small right pleural effusion, increased in size compared to previous. Adenopathy, example mediastinal stations. There is increasing soft tissue density in the left perinephric space along with density extending outside the left perinephric space. There are similar findings on the right to a lesser extent. Some of this was present on the previous CT abdomen and pelvis though findings are more prominent than prior exam. As discussed on the previous, some of this may represent perinephric hemorrhage of uncertain etiology. Component of metastatic involvement not definitively excluded. Low-density cystic left perinephric lesion as on prior CT abdomen and pelvis also present. There is encasement of the renal arteries by perinephric density. Patency of the renal veins and IVC cannot be assessed given arterial phase of enhancement. Motion limits evaluation. Similar adrenal thickening/nodularity as previous CT abdomen and pelvis. Compression deformities spine with new compression deformities since previous, example T5, T10-T12 and L1 and L2. At least T11 and T12 and L1 and L2 compression deformities were present to some degree on the previous CT abdomen and pelvis. Cannot exclude additional fractures in regions of motion artifact. There is some areas of sclerosis. Osseous metastatic disease not excluded. Pathological fractures within the differential. Renal cysts, old granulomatous disease and other unchanged incidentals. IMPRESSION: Limited by artifact. Cannot exclude PE in regions of artifact. No large saddle embolus. Improved aeration of the left lung compared to prior. Pleural catheter present. Small left pleural effusion. There are some areas of loculated pleural fluid as on prior. Small right pleural effusion. Suspected atelectasis in the left lung. Suspect pneumonia on the right. Probable decrease in size of left lung mass. Increased perinephric density, left greater than right. Some of this may represent hemorrhage. Metastatic involvement not excluded. See above discussion. Suspect metastatic bone disease. New compression deformities spine since previous. May represent pathological fractures.
[2018-11-01] MEDS ORDERED: LEVOFLOXACIN 750MG-D5W PMX 750 MG in DEXTROSE/WATER 1 150ML.BAG IVPB STA (06:15)
[2018-11-01] MEDS ORDERED: PNEUMONIA PROTOCOL UTILIZED 1 EACH MISC PO PRN (06:15)
[2018-11-01] MEDS ORDERED: PIPERACILLIN-TAZOBACTAM 3.375 GM in SODIUM CHLORIDE 0.9% 100 ML IVPB STA (06:15)
--- NOTE | 2018-11-01 07:04 | ED ---
SOB HPI - General Chief Complaint: Shortness of Breath Stated Complaint: JUS Time Seen by Provider: 11/01/18 03:26 Source: patient, EMS Mode of arrival: EMS - History of Present Illness Initial Comments: This patient is 63-year-old man with history of multiple myeloma who presents with complaint that he feels is becoming more short of breath. He states he has not been feeling well for a few days but then his breathing became much worse tonight. The patient also has been having chills. He states he does have a bit of a cough though large a nonproductive. MD Complaint: shortness of breath, cough -: days(s) Radiation: back Severity: severe Quality: dull Consistency: constant Improves With: nothing Worsens With: nothing Known History Of: recurrent pneumonia Associated Symptoms: fever, cough - Related Data Home Medications Medication Instructions Recorded Confirmed Gabapentin [Neurontin] 600 mg PO TID 01/08/14 11/01/18 Atorvastatin [Lipitor] 40 mg PO AC-LUNCH 03/24/14 11/01/18 Acyclovir [Zovirax] 400 mg PO BID 08/06/18 11/01/18 oxyCODONE-APAP 10-325MG [Percocet 1 tab PO Q4H PRN 08/22/18 11/01/18 10-325 mg] Famotidine 20 mg PO HS 10/05/18 11/01/18 Ondansetron [Zofran] 4 mg PO Q12HR PRN 10/18/18 11/01/18 Multivitamins, Thera [Multivitamin 1 tab PO DAILY@1200 11/01/18 11/01/18 (formulary)] Previous Rx's Medication Instructions Recorded Folic Acid 1 mg PO DAILY@1200 #30 tab 10/29/18 Loperamide [Imodium] 2 mg PO QID PRN #20 capsule 10/29/18 Ammonium Lactate Lotion 1 applic TOPICAL BID applic 10/30/18 [Lac-Hydrin 12% Lotion] Moxifloxacin HCl 400 mg PO DAILY #7 tab 10/30/18 Triamcinolone 0.1% Ointment 1 applic TOPICAL BID applic 10/30/18 [Kenalog 0.1% Ointment] Allergies Allergy/AdvReac Type Severity Reaction Status Date / Time No Known Allergies Allergy Verified 11/01/18 03:11 Review of Systems ROS Statement: Those systems with pertinent positive or pertinent negative responses have been documented in the HPI. ROS Other: All systems not noted in ROS Statement are negative. Constitutional: Reports: fever, chills, weakness Respiratory: Reports: cough, dyspnea Cardiovascular: Reports: edema. Denies: chest pain, palpitations, orthopnea, syncope Gastrointestinal: Denies: abdominal pain, nausea, vomiting, diarrhea, constipation Genitourinary: Denies: dysuria, frequency, hematuria Musculoskeletal: Reports: back pain (Patient states he has chronic back pain and compression fractures) Skin: Denies: rash, lesions Neurological: Denies: headache, weakness, numbness, paresthesias Past Medical History Past Medical History: Coronary Artery Disease (CAD), Cancer, COPD, GERD/Reflux, Hyperlipidemia, Hypertension, Myocardial Infarction ([place]), Pneumonia Additional Past Medical History / Comment(s): 2009 diagnosed with multiple my eloma-tx with chemo in 2009 and in 2010 had stem cell transplant, recently found L hilar mass-has had it biopsied-negative, thrombocytopenia, MRI at [facility] 09/11/18 showed bone lesions/L femoral neck lesion-being tx with radiation, recent L pleural effusion/empyema-had decortication L lung at [facility] and has L pleurx cath in place, pt states he is on HTN med and cholesterol medications since his MIs prophylactically, gastric ulcer years ago, low back pain, neuropathy bilateral legs/feet since chemo for multiple myeloma treated, sinus problems. Last Myocardial Infarction Date:: 01/09/14, FEB 2005 History of Any Multi-Drug Resistant Organisms: None Reported Past Surgical History: Heart Catheterization, Heart Catheterization With Stent Additional Past Surgical History / Comment(s): 2011 Stem cell transplant, multiple bone marrow bxs, 08/08/18 and 08/16/18 bronchoscopies/biopsies/needle aspiration, EGD/colonoscopy, [facility]-L lung decortication and has left Pleurx catheter drainage system in place Past Anesthesia/Blood Transfusion Reactions: No Reported Reaction Additional Past Anesthesia/Blood Transfusion Reaction / Comment(s): Pt states he received blood in past without reaction. Date of Last Stent Placement:: 01/09/14 Past Psychological History: No Psychological Hx Reported Smoking Status: Former smoker Past Alcohol Use History: None Reported Past Drug Use History: None Reported - Past Family History Father Family Medical History: Cancer Additional Family Medical History / Comment(s): LUNG CA Son(s) Family Medical History: Cancer Additional Family Medical History / Comment(s): BLADDER CA Mother Family Medical History: No Reported History Additional Family Medical History / Comment(s): Mother is healthy and is 86yrs o ld. General Exam General appearance: alert, in distress Head exam: Present: atraumatic, normocephalic Eye exam: Present: normal appearance. Absent: scleral icterus, conjunctival injection ENT exam: Present: mucous membranes dry Neck exam: Present: normal inspection, full ROM Respiratory exam: Present: respiratory distress, rhonchi, other (There is a left-sided thoracentesis tube which is normal in appearance). Absent: wheezes, rales, stridor, accessory muscle use, decreased breath sounds Cardiovascular Exam: Present: normal rhythm, tachycardia, normal heart sounds. Absent: systolic murmur, diastolic murmur, rubs, gallop GI/Abdominal exam: Present: soft. Absent: distended, tenderness, guarding, rebound, rigid, mass Extremities exam: Present: normal inspection, normal capillary refill, pedal edema (Bilateral edema to the knees). Absent: calf tenderness Back exam: Present: normal inspection, vertebral tenderness. Absent: CVA tenderness (R), CVA tenderness (L) Neurological exam: Present: alert Skin exam: Present: warm, dry, intact, normal color. Absent: rash Course Vital Signs 11/01/18 11/01/18 11/01/18 03:06 03:09 04:30 Temperature 98.4 F Pulse Rate 104 H 93 Respiratory 24 22 Rate Blood Pressure 119/68 119/88 125/59 O2 Sat by Pulse 97 98 94 L Oximetry 11/01/18 11/01/18 11/01/18 05:00 05:30 06:00 Temperature Pulse Rate 92 90 91 Respiratory 18 18 18 Rate Blood Pressure 111/56 111/68 110/67 O2 Sat by Pulse 97 98 97 Oximetry 11/01/18 06:30 Temperature 98.6 F Pulse Rate 88 Respiratory 19 Rate Blood Pressure 120/59 O2 Sat by Pulse 96 Oximetry Medical Decision Making - Lab Data Result diagrams: 11/01/18 03:50 11/01/18 03:50 Lab Results 11/01/18 11/01/18 11/01/18 Range/Units 03:50 03:50 03:50 WBC 3.2 L (3.8-10.6) k/uL RBC 2.80 L (4.30-5.90) m/uL Hgb 8.8 L (13.0-17.5) gm/dL Hct 26.2 L (39.0-53.0) % MCV 93.5 (80.0-100.0) fL MCH 31.3 (25.0-35.0) pg MCHC 33.5 (31.0-37.0) g/dL RDW 21.3 H (11.5-15.5) % Anisocytosis Moderate Macrocytosis Slight PT 13.3 H (9.0-12.0) sec INR 1.3 H (<1.2) APTT 26.3 (22.0-30.0) sec D-Dimer 14.34 H (<0.60) mg/L FEU Sodium 140 (137-145) mmol/L Potassium 3.8 (3.5-5.1) mmol/L Chloride 112 H (98-107) mmol/L Carbon Dioxide 18 L (22-30) mmol/L Anion Gap 10 mmol/L BUN 14 (9-20) mg/dL Creatinine 0.64 L (0.66-1.25) mg/dL Est GFR (CKD-EPI)AfAm >90 (>60 ml/min/1.73 sqM) Est GFR (CKD-EPI)NonAf >90 (>60 ml/min/1.73 sqM) Glucose 127 H (74-99) mg/dL Calcium 8.9 (8.4-10.2) mg/dL Total Bilirubin 1.3 (0.2-1.3) mg/dL AST 20 (17-59) U/L ALT 19 L (21-72) U/L Alkaline Phosphatase 77 (38-126) U/L Troponin I (0.000-0.034) ng/mL NT-Pro-B Natriuret Pep pg/mL Total Protein 5.5 L (6.3-8.2) g/dL Albumin 2.7 L (3.5-5.0) g/dL 11/01/18 11/01/18 Range/Units 03:50 03:50 WBC (3.8-10.6) k/uL RBC (4.30-5.90) m/uL Hgb (13.0-17.5) gm/dL Hct (39.0-53.0) % MCV (80.0-100.0) fL MCH (25.0-35.0) pg MCHC (31.0-37.0) g/dL RDW (11.5-15.5) % Anisocytosis Macrocytosis PT (9.0-12.0) sec INR (<1.2) APTT (22.0-30.0) sec D-Dimer (<0.60) mg/L FEU Sodium (137-145) mmol/L Potassium (3.5-5.1) mmol/L Chloride (98-107) mmol/L Carbon Dioxide (22-30) mmol/L Anion Gap mmol/L BUN (9-20) mg/dL Creatinine (0.66-1.25) mg/dL Est GFR (CKD-EPI)AfAm (>60 ml/min/1.73 sqM) Est GFR (CKD-EPI)NonAf (>60 ml/min/1.73 sqM) Glucose (74-99) mg/dL Calcium (8.4-10.2) mg/dL Total Bilirubin (0.2-1.3) mg/dL AST (17-59) U/L ALT (21-72) U/L Alkaline Phosphatase (38-126) U/L Troponin I <0.012 (0.000-0.034) ng/mL NT-Pro-B Natriuret Pep 7470 pg/mL Total Protein (6.3-8.2) g/dL Albumin (3.5-5.0) g/dL - EKG Data -: EKG Interpreted by Mo EKG shows normal: sinus rhythm, axis (Normal), intervals (Normal), QRS complexes (Low voltage QRS complexes), ST-T waves (T inversions anterolateral leads) Rate: normal (Rate 97 bpm) Disposition Clinical Impression: Bicytopenia, Acute thoracic back pain, Pneumonia Disposition: ADMITTED IP TO THIS [facility] Condition: Poor Is patient prescribed a controlled substance at d/c from ED?: No
[2018-11-01] MEDS ORDERED: LOPERAMIDE 2 MG CAP PO PRN (07:05)
[2018-11-01] MEDS ORDERED: ONDANSETRON 4 MG TAB PO PRN (07:05)
[2018-11-01] MEDS: GABAPENTIN 300 MG CAP PO SCH ×3 (07:58→22:50)
[2018-11-01] MEDS: oxyCODONE-APAP 10-325MG 1 EACH TAB PO PRN ×3 (07:59→19:25)
[2018-11-01] MEDS: ATORVASTATIN 40 MG TAB PO SCH (07:59)
[2018-11-01] MEDS: MULTIVITAMINS, THERA 1 EACH TAB PO SCH (07:59)
[2018-11-01] MEDS: ACYCLOVIR 200 MG CAP PO SCH ×2 (07:59→22:50)
[2018-11-01 08:41] LABS: Metamyelocytes # (M) 0.03 k/uL (0); Metamyelocytes % 1 %
[2018-11-01 08:42] LABS: Total Cells Counted 200
[2018-11-01 08:43] LABS: Poikilocytosis (M) Present; Toxic Granulation Present; Toxic Vacuolation Present
[2018-11-01] MEDS ORDERED: MOXIFLOXACIN HCL 400 MG PO SCH (09:00)
[2018-11-01] MEDS: TRIAMCINOLONE ACET 0.1% OINTMENT 15 GM TUBE TOPICAL SCH ×2 (09:25→22:50)
[2018-11-01] MEDS: AMMONIUM LACTATE 12% LOTION 225 GM BTL TOPICAL SCH ×2 (09:25→22:50)
[2018-11-01] MEDS: FOLIC ACID 1 MG TAB PO SCH (09:26)
[2018-11-01 09:30] VITALS: BMI 27.8
--- NOTE | 2018-11-01 11:35 | P.CNPUL ---
History of Present Illness Consult date: 11/01/18 Requesting physician: Eladio Salcedo Reason for consult: dyspnea, other (Back pain) Chief complaint: Shortness of breath, back pain History of present illness: This is a very pleasant 63-year-old male patient who follows with Dr. Coelho as his primary care physician. The patient has history of multiple myeloma of a nonsecretory type that was diagnosed in 2009. The patient has been receiving treatment under the care of Dr. Reynolds and after 4 sessions of Velcade and Decadron the patient's underwent an autologous stem cell transplantation in 2010 and the patient remains stable 2013. A repeat bone marrow biopsy that was done on 11/02/2079 showed 60% plasma cells with normal cytogenetics and the fish positive for translocation 11 ,14. The patient was treated with a combination of Revlimid and dexamethasone and Ixazomib. Following that, the treatment was held in general 2018 due to severe pancytopenia. Since then the patient has been having several pulmonary complications most significant of which was an empyema the developed in the left lung. After being treated in our facility the patient was transferred to [facility] where he underwent a thoracoscopic decortication and the Pleurx catheter insertion and the patient was transferred back to [place] for further care. At this point in time the Pleurx catheter is in place and the patient is having some limited drainage around 20-30 mL of output every other day. The patient me was also receiving radiation therapy to the left femur due to ongoing pain in that area. He was just discharged here from another admission for an acute right upper lobe pneumonia and pancytopenia on 10/30/2018. He presented here again early this morning with complaints of increasing shortness of breath and back pain. Chest x-ray showed some increasing opacity in the right lung base compared to previous of 10/29/2018. CT angiogram was limited by artifact but there were no large saddle embolus. There is improved aeration of the left lung compared to previous CT of 08/31/2018. Pleural catheter remains in place. Small left pleural effusion. Some areas of loculated pleural fluid as on previous. There is a small right pleural effusion and suspected atelectasis and left lung and suspected pneumonia on the right. Probable decrease in size of the left lung mass. There was noted increased density left greater than right possibly hemorrhage versus metastatic involvement. There is metastatic bone disease and new compression deformities in the spine compared to previous, suspect pathologic fractures. He is seen today in consultation on the regular medical floor. He is currently awake and alert in no acute distress. Resting fairly comfortably in bed. He is maintained on Percocet for pain control. Maintaining O2 saturations in the mid 90s on 5 L/m per nasal cannula. Currently afebrile. Hemodynamically stable. White count 3.2. Hemoglobin 8.8. Platelet count is pending. Sodium 140. Potassium 3.8. Bicarb 18. Creatinine 0.64. Troponin negative 1. He has been initiated on Zosyn and Levaquin Review of Systems Constitutional: Reports chronic pain, Reports weakness, Reports weight loss, the patient has diminished appetite and ongoing weight loss. His current BMI is 27.8. He has ongoing pain in his right hip area for which she was receiving radiation therapy. Eyes: denies blurred vision, denies decreased vision Ears: deny: decreased hearing Ears, nose, mouth and throat: Denies headache, Denies sore throat Cardiovascular: Reports dyspnea on exertion, Reports shortness of breath Respiratory: Reports cough, Reports dyspnea, patient has a Pleurx catheter in place., Reports no pleurisy Gastrointestinal: Denies abdominal pain, reports nausea and vomiting and inability to keep any oral material. Genitourinary: Reports as per HPI Musculoskeletal: Reports as per HPI Integumentary: Denies pruritus, Denies rash Neurological: Reports gait dysfunction, Reports weakness Psychiatric: Reports anxiety Endocrine: Denies fatigue, Denies weight change Hematologic/Lymphatic: Reports as per HPI, the patient has complicated his of multiple myeloma and stem cell transplantation and the patient has pancytopenia for now Allergic/Immunologic: Reports as per HPI Past Medical History Past Medical History: Coronary Artery Disease (CAD), Cancer, COPD, GERD/Reflux, Hyperlipidemia, Hypertension, Myocardial Infarction ([place]), Pneumonia Additional Past Medical History / Comment(s): Pt recently admitted 10/24/18 to [facility] with R upper lobe pneumonia. Other HX: 2009 diagnosed with multiple myeloma-tx with chemo in 2009 and in 2010 had stem cell transplant, recently found L hilar mass-has had it biopsied-negative, severe thrombocytopenia, pancytopenia, MRI at [facility] 09/11/18 showed bone lesions/L femoral neck lesion-being tx with radiation, recent L pleural effusion/empyema-had decortication L lung at [facility] and has L pleurx cath in place, pt states he is on HTN med and cholesterol medications since his MIs prophylactically, gastric ulcer years ago, low back pain, neuropathy bilateral legs/feet since chemo for multiple myeloma treated, sinus problems. Last Myocardial Infarction Date:: 01/09/14, FEB 2005 History of Any Multi-Drug Resistant Organisms: None Reported Past Surgical History: Heart Catheterization, Heart Catheterization With Stent Additional Past Surgical History / Comment(s): 2011 Stem cell transplant, multiple bone marrow bxs, 08/08/18 and 08/16/18 bronchoscopies/biopsies/needle aspiration, EGD/colonoscopy, [facility]-L lung decortication and has left Pleurx catheter drainage system in place Past Anesthesia/Blood Transfusion Reactions: No Reported Reaction Additional Past Anesthesia/Blood Transfusion Reaction / Comment(s): Pt states he received blood in past without reaction. Date of Last Stent Placement:: 01/09/14 Smoking Status: Former smoker - Past Family History Father Family Medical History: Cancer Additional Family Medical History / Comment(s): LUNG CA Son(s) Family Medical History: Cancer Additional Family Medical History / Comment(s): BLADDER CA Mother Family Medical History: No Reported History Additional Family Medical History / Comment(s): Mother is healthy and is 86yrs old. Medications and Allergies Home Medications Medication Instructions Recorded Confirmed Type Gabapentin [Neurontin] 600 mg PO TID 01/08/14 11/01/18 History Atorvastatin [Lipitor] 40 mg PO AC-LUNCH 03/24/14 11/01/18 History Acyclovir [Zovirax] 400 mg PO BID 08/06/18 11/01/18 History oxyCODONE-APAP 10-325MG [Percocet 1 tab PO Q4H PRN 08/22/18 11/01/18 History 10-325 mg] Famotidine 20 mg PO HS 10/05/18 11/01/18 History Ondansetron [Zofran] 4 mg PO Q12HR PRN 10/18/18 11/01/18 History Folic Acid 1 mg PO DAILY@1200 #30 tab 10/29/18 11/01/18 Rx Loperamide [Imodium] 2 mg PO QID PRN #20 capsule 10/29/18 11/01/18 Rx Ammonium Lactate Lotion 1 applic TOPICAL BID applic 10/30/18 11/01/18 Rx [Lac-Hydrin 12% Lotion] Moxifloxacin HCl 400 mg PO DAILY #7 tab 10/30/18 11/01/18 Rx Triamcinolone 0.1% Ointment 1 applic TOPICAL BID applic 10/30/18 11/01/18 Rx [Kenalog 0.1% Ointment] Multivitamins, Thera [Multivitamin 1 tab PO DAILY@1200 11/01/18 11/01/18 History (formulary)] Allergies Allergy/AdvReac Type Severity Reaction Status Date / Time No Known Allergies Allergy Verified 11/01/18 03:11 Physical Exam Vitals: Vital Signs Temp Pulse Pulse Resp BP BP Pulse Ox 11/01/18 08:00 102 H 16 11/01/18 07:38 99.1 F 102 H 16 124/67 94 L 11/01/18 06:30 98.6 F 88 19 120/59 96 11/01/18 06:00 91 18 110/67 97 11/01/18 05:30 90 18 111/68 98 11/01/18 05:00 92 18 111/56 97 11/01/18 04:30 93 22 125/59 94 L 11/01/18 03:09 119/88 98 11/01/18 03:06 98.4 F 104 H 24 119/68 97 Intake and Output 10/31/18 11/01/18 11/01/18 22:59 06:59 14:59 Other: Weight 83.007 kg GENERAL EXAM: Alert, and oriented 3. The patient is currently on 5 L/m per nasal cannula. No signs of any acute respiratory distress. Pale and weak. EYES: Normal reaction of pupils, equal size. NOSE: Clear with pink turbinates. THROAT: No erythema or exudates. NECK: No masses, no JVD. CHEST: No chest wall deformity. LUNGS: Patient diminished breath on the left lung base and the patient has a Pleurx catheter in the left hemithorax. CVS: S1 and S2 normal with no audible murmur, regular rhythm. ABDOMEN: No hepatosplenomegaly, normal bowel sounds, no guarding or rigidity. SPINE: No scoliosis or deformity SKIN: No rashes CENTRAL NERVOUS SYSTEM: No focal deficits, tone is normal in all 4 extremities. EXTREMITIES: There is no peripheral edema. No clubbing, no cyanosis. Peripheral pulses are intact. Results - Laboratory Findings CBC and BMP: 11/01/18 03:50 11/01/18 03:50 PT/INR, D-dimer PT 13.3 sec (9.0-12.0) H 11/01/18 03:50 INR 1.3 (<1.2) H 11/01/18 03:50 D-Dimer 14.34 mg/L FEU (<0.60) H 11/01/18 03:50 Abnormal lab findings: Abnormal Labs 11/01/18 11/01/18 11/01/18 03:50 03:50 03:50 WBC 3.2 L RBC 2.80 L Hgb 8.8 L Hct 26.2 L RDW 21.3 H PT 13.3 H INR 1.3 H D-Dimer 14.34 H Chloride 112 H Carbon Dioxide 18 L Creatinine 0.64 L Glucose 127 H ALT 19 L Total Protein 5.5 L Albumin 2.7 L - Diagnostic Findings Chest x-ray: image reviewed CT scan - chest: image reviewed Assessment and Plan Assessment: Impression: #1 Acute hypoxemic respiratory failure secondary to increasing right lung opacity/pneumonia as well as involvement of the both the right lower and mid lobes. In addition there is some limited infiltration of the left midlung and chronic consolidation of left lower lobe, a residual of a previous empyema and the patient is a Pleurx catheter in place with some ongoing drainage which has dropped significantly over this past few weeks. The patient is immunocompromised. 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 #4 History of multiple myeloma post bone marrow transplantation #5 Generalized weakness, anorexia and ongoing constitutional symptoms and weight loss, secondary to above #6 Left lung empyema without evidence of any malignancy. The patient is undergone thoracotomy with decortication and the cultures of been negative and the patient has a Pleurx catheter in place output of which is minimal at this point in time #7 Coronary artery disease with previous coronary stent insertion and cardiac catheterization, currently free of any chest pain #8 COPD #9 Hypertension #10 Hyperlipidemia #11 Known history of coronary artery disease #12 Previous history of bone marrow transplantation and the patient undergone stem cell transplant in 2011 #13 Chronic back pain and myeloma related lytic lesions throughout the skeletal system, possible new pathologic fractures. #14 Peripheral neuropathy #15 Peptic ulcer disease #16 Hip pain completed radiation therapy Plan: The patient was seen and evaluated by Dr. Morejon. Chest x-ray and CAT scan were reviewed. Labs reviewed. We'll continue with current antibiotics in the form of Zosyn and Levaquin. The patient's overall prognosis is guarded due to his ongoing pancytopenia secondary to his multiple myeloma. We will continue to follow and make further recommendations based on his clinical status. He may need subacute rehabilitation post discharge. I, the cosigning physician, performed a history & physical examination of the patient. Lungs sounds with bilateral scattered rhonchi. Maintaining good O2 saturations in the 90s on 5 L/m per nasal cannula. I discussed the assessment and plan of care with my nurse practitioner, Sona Edmond. I attest to the above note as dictated by her. Time with Patient: Greater than 30
[2018-11-01 13:41] LABS: Band Neutrophils % 5 %; Eosinophils # (M) 0.13 k/uL (0-0.7); Lymphocytes # (M) 0.83 k/uL (1.0-4.8); Monocytes # (M) 0.26 k/uL (0-1.0); Myelocytes # (M) 0.03 k/uL (0); Myelocytes % 1 %; Neutrophils % (M) 53 %; Plasma Cells # (M) 0.13 k/uL (0); Plasma Cells % 4 %
--- NOTE | 2018-11-01 14:54 | P.CONS ---
History of Present Illness - Reason for Consult Consult date: 11/01/18 Multiple Myeloma, Pancytopenia Requesting physician: Hector Ponce - Chief Complaint SOB - History of Present Illness The patient was diagnosed with non-secretory multiple myeloma in .He induction with 4 cycles of Velcade/Decadron followed by autologous stem cell transplant in .He declined maintenance revlimid. He had a repeat bone marrow biopsy at [facility] on 10/10/2011.He had a repeat bone survey in which was stable. Myeloma evalution in revealed no evidence of progression. Repeat skeletal bone survey on 10/03/2012 was stable without new changes. Repeat Wheeler/Lambda ratio,SPEP,CMP in 09/2012 revealed no evidence of progression. 24 hrs urine in was negative for Bence Farley proteins. He had worsening anemia in September/2017,repeat PET scan on 10/21/2017 revealed no new lesions,repeat bone marrow biopsy on 11/01/2017 revealed 60% plasma cells,normal cytogenetics,FISH was positive for t(11,14) (previously he had t(11,14) After discussiong options with him,it was decided to start ixazomib/revlimid/dex regimen (ixazomib was chosen due to less risk of neuropathy) He started ixazomib/revlimid/dex on 11/19/2017 On 06/29/2018,ixazomib/revlimid/dex were held due to significant pancytopenia. On 07/06/2018,repeat bone marrow biopsy revealed 20-30% plasma cells (as per my discussion with pathologist,it was felt relatively stable compared to prior bone marrow biopsy),FISH revealed t(11,14) translocation. On 07/28/2018,repeat PET scan revealed new osseous lesions and new large left infrahilar lung mass,bronchoscopic biopsies were negative,then he developed left pleural effusion,thoracentesis revealed empyema,the fluid recurred,he was transferred to [facility],had a very long hospital stay,had decortication of left pleural empyema,pleural biopsies were negative for malignancy,he did have a repeat CT scan of chest at [facility] on 09/17/2018 which revealed resolution of the left hilar mass,he also had MRI of the pelvis on 09/11/2018 which revealed multiple bone lesion,there was a lesion involving 50% of left femoral neck. He was just discharged from [facility],he still has PleuRx catheter,feels weak,but better,no significant hip pain but has his chronic back pain and musculokeletal pain,on percocet as needed,has lost a lot of weight related to his pneumonia and empyema. 07/28/18 repeat PET scan revealed new osseous lesions and new large left infrahilar lung mass, biopsies were negative, then he developed left pleural effusion, thoracentesis revealed empyema, he was transferred to [facility] with prolonged hospital stay, had decortication of left pleural empyema, pleural biopsies were negative for malignancy. Repeat CT at [facility] on 09/17/18 which revealed resolution of the left hilar mass, he also had MRI of the pelvis on 09/11/2018 which revealed multiple bone lesion, there was a lesion involving 50% of left femoral neck. Patient continues to have the Pleurx catheter, he did receive radiation to the left femur with improvement in his pain. He is admitted from home with complaints of progressive weakness, no appetite, nausea, vomiting with eating, shortness of breath this a.m. that "scared" him. Denies fever, oral irritation, difficulty swallowing, chest pain, abdominal pain or discomfort, diarrhea or constipation, bleeding or swelling. Patient is weak. He unfortunetly continues to have re-admissions and be transfusion dependant. Admission in September to [facility] for complaints of nausea and vomiting and inability to tolerate PO intake over the past few days. He has recently been more sedative, with prolonged hospitalizations. He recently has started narcotic pain medications for pain with above incidience and left femoral neck lesions, status post 4 radiation treatments. He has not moved bowels in 4 or 5 days, and he stated he just started passing gas today. CT abdomen and pelvis did not show acute etiology or obstruction. He has not appropriately responded to growth factors. He is responding intially to platlets although becuase of lifespan these are quickly dropping, will need to watch and monitor for refractory status. His symptoms improved,improved constipation. He was placed on an intense bowel regimen prior to discharge 10/24/18: Admitted again for persistent nausea and vomiting. Discharged on 10/30/18. 11/01/18 - He presents here again with complaints of increasing shortness of breath and back pain. Chest x-ray showed some increasing opacity in the right lung base compared to previous of 10/29/2018. CT angiogram was limited by artifact but there were no identified embolus. There is improved aeration of the left lung compared to previous CT of 08/31/2018. Pulmonary is following. He remains on 5- 6 liters NC saturating at 91-93%, he has remained afebrile since admission. For the possibility of pneumonia he was placed on Antibiotics. His WBC are actually stable 3.2 and ANC 1.8. Platelets were 9 and he received one unit of Platlets. I have ordered a redraw today. We have also ordered labs to restage his myeloma as the concern of progressive disease, although with re-admissions and with persistent pancytopenia it has been difficult to initiate next line. He has very difficult IV Access. With his persistent cytopenias will hold off on mediport and order picc for now. I have also ordered next line with Darzalex/Po malyst/Dexamethasone to be initiated in office as risk versus benfit he will not improve without treatment. Review of Systems A 14 point review of systems assessed and completed and all negative except hpi Past Medical History Past Medical History: Coronary Artery Disease (CAD), Cancer, COPD, GERD/Reflux, Hyperlipidemia, Hypertension, Myocardial Infarction ([place]), Pneumonia Additional Past Medical History / Comment(s): Pt recently admitted 10/24/18 to [facility] with R upper lobe pneumonia. Other HX: 2009 diagnosed with multiple myeloma-tx with chemo in 2009 and in 2010 had stem cell transplant, recently found L hilar mass-has had it biopsied-negative, severe thrombocytopenia, pancytopenia, MRI at [facility] 09/11/18 showed bone lesions/L femoral neck lesion-being tx with radiation, recent L pleural effusion/empyema-had decortication L lung at [facility] and has L pleurx cath in place, pt states he is on HTN med and cholesterol medications since his MIs prophylactically, gastric ulcer years ago, low back pain, neuropathy bilateral legs/feet since chemo for multiple myeloma treated, sinus problems. Last Myocardial Infarction Date:: 01/09/14, FEB 2005 History of Any Multi-Drug Resistant Organisms: None Reported Past Surgical History: Heart Catheterization, Heart Catheterization With Stent Additional Past Surgical History / Comment(s): 2011 Stem cell transplant, multiple bone marrow bxs, 08/08/18 and 08/16/18 bronchoscopies/biopsies/needle aspiration, EGD/colonoscopy, [facility]-L lung decortication and has left Pleurx catheter drainage system in place Past Anesthesia/Blood Transfusion Reactions: No Reported Reaction Additional Past Anesthesia/Blood Transfusion Reaction / Comm: Pt states he received blood in past without reaction. Date of Last Stent Placement:: 01/09/14 Smoking Status: Former smoker - Past Family History Father Family Medical History: Cancer Additional Family Medical History / Comment(s): LUNG CA Son(s) Family Medical History: Cancer Additional Family Medical History / Comment(s): BLADDER CA Mother Family Medical History: No Reported History Additional Family Medical History / Comment(s): Mother is healthy and is 86yrs old. Medications and Allergies Home Medications Medication Instructions Recorded Confirmed Type Gabapentin [Neurontin] 600 mg PO TID 01/08/14 11/01/18 History Atorvastatin [Lipitor] 40 mg PO AC-LUNCH 03/24/14 11/01/18 History Acyclovir [Zovirax] 400 mg PO BID 08/06/18 11/01/18 History oxyCODONE-APAP 10-325MG [Percocet 1 tab PO Q4H PRN 08/22/18 11/01/18 History 10-325 mg] Famotidine 20 mg PO HS 10/05/18 11/01/18 History Ondansetron [Zofran] 4 mg PO Q12HR PRN 10/18/18 11/01/18 History Folic Acid 1 mg PO DAILY@1200 #30 tab 10/29/18 11/01/18 Rx Loperamide [Imodium] 2 mg PO QID PRN #20 capsule 10/29/18 11/01/18 Rx Ammonium Lactate Lotion 1 applic TOPICAL BID applic 10/30/18 11/01/18 Rx [Lac-Hydrin 12% Lotion] Moxifloxacin HCl 400 mg PO DAILY #7 tab 10/30/18 11/01/18 Rx Triamcinolone 0.1% Ointment 1 applic TOPICAL BID applic 10/30/18 11/01/18 Rx [Kenalog 0.1% Ointment] Multivitamins, Thera [Multivitamin 1 tab PO DAILY@1200 11/01/18 11/01/18 History (formulary)] Allergies Allergy/AdvReac Type Severity Reaction Status Date / Time No Known Allergies Allergy Verified 11/01/18 03:11 Physical Exam Vitals: Vital Signs Temp Pulse Pulse Resp BP BP Pulse Ox 11/01/18 11:23 98.7 F 88 16 112/69 92 L 11/01/18 08:00 102 H 16 11/01/18 07:38 99.1 F 102 H 16 124/67 94 L 11/01/18 06:30 98.6 F 88 19 120/59 96 11/01/18 06:00 91 18 110/67 97 11/01/18 05:30 90 18 111/68 98 11/01/18 05:00 92 18 111/56 97 11/01/18 04:30 93 22 125/59 94 L 11/01/18 03:09 119/88 98 11/01/18 03:06 98.4 F 104 H 24 119/68 97 Intake and Output 10/31/18 11/01/18 11/01/18 22:59 06:59 14:59 Other: Weight 83.007 kg - Constitutional General appearance: Present: cooperative, no acute distress, thin - EENT Eyes: Present: anicteric sclerae, EOMI ENT: Present: hearing grossly normal - Respiratory Details: Respirations even and unlabored - Cardiovascular Rhythm: regular - Peripheral edema leg Peripheral Edema: bilateral: None - Gastrointestinal General gastrointestinal: Present: soft - Integumentary Integumentary: Present: pale - Neurologic Neurologic: Present: CNII-XII intact - Musculoskeletal Musculoskeletal: Present: generalized weakness, strength equal bilaterally - Psychiatric Psychiatric: Present: A&O x's 3, appropriate affect, intact judgment & insight Results CBC & Chem 7: 11/01/18 03:50 11/01/18 03:50 Labs: Abnormal Lab Results - Last 24 Hours (Table) 11/01/18 11/01/18 11/01/18 Range/Units 03:50 03:50 03:50 WBC 3.2 L (3.8-10.6) k/uL RBC 2.80 L (4.30-5.90) m/uL Hgb 8.8 L (13.0-17.5) gm/dL Hct 26.2 L (39.0-53.0) % RDW 21.3 H (11.5-15.5) % Plt Count 9 L* D (150-450) k/uL Lymphocytes # (Manual) 0.83 L (1.0-4.8) k/uL Metamyelocytes # (Man) 0.03 H (0) k/uL Myelocytes # (Manual) 0.03 H (0) k/uL Plasma Cell # (Manual) 0.13 H (0) k/uL PT 13.3 H (9.0-12.0) sec INR 1.3 H (<1.2) D-Dimer 14.34 H (<0.60) mg/L FEU Chloride 112 H (98-107) mmol/L Carbon Dioxide 18 L (22-30) mmol/L Creatinine 0.64 L (0.66-1.25) mg/dL Glucose 127 H (74-99) mg/dL ALT 19 L (21-72) U/L Total Protein 5.5 L (6.3-8.2) g/dL Albumin 2.7 L (3.5-5.0) g/dL Chest x-ray: report reviewed CT scan - chest: report reviewed Assessment and Plan Plan: Multiple Myeloma: - Details per HPI - Treatment currently on hold for pancytopenia, recent progression of disease and prolonged hospital stay for decortication and empyema - Will order restaging blood work today for baseline - I have discussed in detail with his primary oncologist Dr. Reynolds, will order Next Line Treatment with Darzalex/Pomalyst/Dexamethasone - May initiate dexamethasone while inpatient if no s/s of bowel obstruction or active infection. This will act as a treatment dose against myeloma. Pancytopenia: Secondary to Malignancy and Chemotherapy - Continue to monitor CBC - Transfusion support PRN, Hgb less than 7, PLatelets less than 10 - ALL IRRADIATED BLOOD PRODUCTS - Status Post Platlet Transfusion awaing post CBC - G-CSF - if Neuts less than 1 Constipation: Improved - Recent increase in narcotics - Recent decrease in activity related to Left femoral head lesion and prolonged hospital stay for pulmonary infection Nausea & vomiting - Improved - Antiemetics PRN - Marinol as an appetite stimulants ordered, improved today, no episodes of vomiting. - Continue Marinol at discharge Left Lung Empyema and Persistent Infection: - Persistent left lung infection, questionable mass, empyema. - Patient has had multiple hospitalizations and complications due to this left lung mass/infection, empyema, recurrent effusion. T - Pleurex in place and pulmonary and Cardiothorax is following - This is persistent and still requiring workup. Concern was that performing any type of diagnostic workup could be complicated by infection. - Continue treatment per IM and Pulmonary for now. Acute on Chronic Respiratory Failure - - Continue on Oxygen 5L - Pulm following - Antibiotics for possible Pneumonia PLan: - Transfusion Support - Daily CBC - Will await Dr. phillips recommendation regarding high dose dexamethasone treatment as inpatient for progressive myeloma - Re-stage [facility] H[facility]arg[facility]
[2018-11-01] MEDS: IPRATROPIUM-ALBUTEROL 3 ML NEB INHALATION SCH ×2 (15:32→20:18)
--- NOTE | 2018-11-01 15:42 | HP ---
HISTORY AND PHYSICAL DATE OF ADMISSION: 11/01/2018 . PRESENTING COMPLAINT: Diarrhea, nausea, and feeling unwell. HISTORY OF PRESENTING COMPLAINT: This is a very pleasant, 63-year-old patient with a rather extensive medical history. The patient was just discharged from the hospital 2 days ago following a right upper lobe pneumonia that had clinically really improved and was seen by Dr. Morejon and Dr. Watt from Infectious Disease. Discharged home on oral antibiotic. Other chronic stable medical conditions include compression fracture of T7-T8 radiculopathy, coronary artery disease, COPD, GERD, multiple myeloma with left chest pleural effusion with a PleurX in place that drains intermittently. Patient also got pancytopenia due to chemotherapy. Also received platelets on the last admission. Patient has a chronic left-sided pleural effusion from multiple myeloma. Patient went home and started having increasing amount of nausea and hand about at least 3 or 4 bowel movements, started becoming weak, tired, run down. Also developed a fever up to 102 and is being readmitted for the same, pre0-tired, run down. REVIEW OF SYSTEMS: CONSTITUTIONAL: Tired, febrile, weak. HEENT: None. RESPIRATORY: Some shortness of breath. CARDIOVASCULAR: None. GASTROINTESTINAL : Three to four bowel movements a day. GENITOURINARY: None. MUSCULOSKELETAL: None. DERMATOLOGICAL: Bruising in upper extremity lower extremity. HEMATOLOGICAL: As above. LYMPHATICS: None. PSYCHIATRY: Anxious. NEUROLOGICAL: None. PAST MEDICAL HISTORY: Of recent right lower lobe pneumonia, chronic compression fracture of T7-T8 with radiculopathy, coronary artery disease, COPD in an ex-smoker, GERD, hypertension, hyperlipidemia, multiple myeloma with left chest pleural effusion with a PleurX in place and a left pleural effusion from multiple myeloma peripheral neuropathy due to chemotherapy. Pancytopenia from chemotherapy therapy. Past medical history of coronary artery disease, COPD, GERD, hyperlipidemia. Past medical history of coronary artery disease, multiple myeloma, COPD, GERD, hyperlipidemia, hypertension, myocardial infarction, multiple myeloma, treated with chemo in 2010, had stem cell transplant, pancytopenia, PleurX catheter in place, gastric ulcer, bilateral peripheral neuropathy. PAST SURGICAL HISTORY: Cardiac cath with stent, stem cell transplant, multiple bone marrow biopsies, left PleurX catheter. SOCIAL HISTORY: . Has a walker. Patient smoked a pack a day for 40 years, stopped in June of this year. Retired. FAMILY HISTORY: Lung cancer. HOME MEDICATIONS: 1. Percocet 10 one tablet q.4 p.r.n. 2. Kenalog 0.1% topical b.i.d. 3. Zofran 4 mg q.12 p.r.n. 4. Multivitamin 1 tablet p.o. daily. 5. Avelox 400 g p.o. daily. 6. Imodium 2 mg q.i.d. p.r.n. 7. Neurontin 600 mg t.i.d. 8. Folic acid 1 mg p.o. daily. 9. Pepcid 20 mg q.h.s. 10.Lipitor 40 mg before lunch. 11.Lac-Hydrin 12% topical b.i.d. 12.Acyclovir 400 mg b.i.d. ALLERGIES: None. PHYSICAL EXAMINATION: Afebrile, pulse 88, respiration 19, blood pressure 120/59, pulse ox 96% on 5 L. GENERAL APPEARANCE: Average build lying in bed, tired-appearing. EYES: Pupils equal. Conjunctivae are pale. HEENT: External appearance of nose and ears normal. Oral cavity normal. NECK: JVD not raised. Mass not palpable. RESPIRATORY: Effort increased. LUNGS: Diminished breath sounds, some crackles. CARDIOVASCULAR: First and second sounds, some edema. ABDOMEN: Soft, nontender. Liver and spleen not palpable. LYMPHATIC: No lymph nodes palpable in the neck and axilla. PSYCHIATRY: Alert and x3, mood and affect tired-appearing. NEUROLOGICAL: Pupils equal, grossly intact. Power and sensation decreased sensation, distally. DERMATOLOGICAL: Bruising of lower extremity and upper extremity. INVESTIGATIONS: White count 3.2, hemoglobin 8.8, platelets 9, potassium 3.8, BUN 14, creatinine 0.64, albumin 2.7. EKG tracing personally reviewed by me shows some nonspecific T-wave changes. Chest x-ray film personally reviewed by me shows some scattered questionable infiltrates. Chest CTA shows improved aeration. Some areas of loculated pleural fluid. Some compression deformities are noted. ASSESSMENT: 1. Possible onset of new pneumonia. 2. Chronic compression fracture of T7-T8 with radiculopathy. 3. Coronary artery disease. 4. Chronic obstructive pulmonary disease in an ex-smoker. 5. Gastroesophageal reflux disease. 6. Hyperlipidemia. 7. Essential hypertension. 8. Multiple myeloma with left-sided pleural effusion with a PleurX in place. 9. Peripheral neuropathy from chemotherapy. 10.Pancytopenia due to chemotherapy with recent platelet transfusion. 11.Chronic left pleural effusion from multiple myeloma with a PleurX in place. PLAN: The patient's stool will be sent off for one parasites and Clostridium difficile. Dr. Watt will be consulted to coordinate the antibiotics. Also Pulmonary and Oncology consulted, care was discussed with the patient. Prognosis guarded. MMODL / IJN: [id number] /
[2018-11-01 15:57] LABS: Anisocytosis Slight; MCH 30.6 pg (25.0-35.0); MCHC 32.4 g/dL (31.0-37.0); MCV 94.5 fL (80.0-100.0); Macrocytosis Slight; Mean Platelet Volume 8.5; RBC 2.09 m/uL (4.30-5.90); RDW 19.8 % (11.5-15.5)
[2018-11-01 16:00] LABS: HGB 6.4 gm/dL (13.0-17.5)
[2018-11-01 16:01] LABS: HCT 19.7 % (39.0-53.0); Platelet Count 6 k/uL (150-450)
[2018-11-01] MEDS: PIPERACILLIN-TAZOBACTAM 3.375 GM in SODIUM CHLORIDE 0.9% 100 ML IVPB SCH (16:16)
[2018-11-01 16:52] LABS: Band Neutrophils % 1 %; Eosinophils # (M) 0.12 k/uL (0-0.7); Lymphocytes # (M) 0.62 k/uL (1.0-4.8); Monocytes # (M) 0.06 k/uL (0-1.0); Neutrophils % (M) 57 %; Nucleated Red Blood Cells 0 /100 WBC (0-0); Plasma Cells # (M) 0.04 k/uL (0); Plasma Cells % 2 %; Total Cells Counted 100; Toxic Granulation Present
[2018-11-01 16:53] LABS: Poikilocytosis (M) Present
[2018-11-01] MEDS: FAMOTIDINE 20 MG TAB PO SCH (22:50)
[2018-11-01] MEDS ORDERED: FUROSEMIDE 10 MG/ML 2 ML VIAL IV ONE (23:00)
[2018-11-02] MEDS: oxyCODONE-APAP 10-325MG 1 EACH TAB PO PRN ×6 (00:10→19:53)
[2018-11-02 02:39] LABS: Protein, Total 5.2 g/dL (6.2-8.2)
[2018-11-02] MEDS: PIPERACILLIN-TAZOBACTAM 3.375 GM in SODIUM CHLORIDE 0.9% 100 ML IVPB SCH ×3 (02:49→16:32)
[2018-11-02 05:48] LABS: Anisocytosis Slight; HCT 24.7 % (39.0-53.0); Hypochromasia Slight; MCH 32.5 pg (25.0-35.0); MCHC 33.6 g/dL (31.0-37.0); MCV 96.8 fL (80.0-100.0); Macrocytosis Slight; Mean Platelet Volume 7.9; RBC 2.56 m/uL (4.30-5.90); RDW 19.9 % (11.5-15.5); WBC 2.9 k/uL (3.8-10.6)
[2018-11-02 05:51] LABS: INR 1.4 (<1.2); Prothrombin Time 13.9 sec (9.0-12.0)
[2018-11-02 05:52] LABS: HGB 8.3 gm/dL (13.0-17.5); Platelet Count 19 k/uL (150-450)
[2018-11-02 06:19] LABS: Band Neutrophils % 7 %; Eosinophils # (M) 0.26 k/uL (0-0.7); Lymphocytes # (M) 1.02 k/uL (1.0-4.8); Neutrophils % (M) 47 %; Nucleated Red Blood Cells 1 /100 WBC (0-0); Plasma Cells # (M) 0.06 k/uL (0); Plasma Cells % 2 %; Total Cells Counted 200
[2018-11-02 06:20] LABS: Toxic Granulation Present
[2018-11-02 06:21] LABS: Polychromasia Present
[2018-11-02] MEDS: LEVOFLOXACIN 750MG-D5W PMX 750 MG in DEXTROSE/WATER 1 150ML.BAG IVPB SCH (07:05)
[2018-11-02] MEDS: IPRATROPIUM-ALBUTEROL 3 ML NEB INHALATION SCH ×4 (07:08→20:08)
[2018-11-02] MEDS: ACYCLOVIR 200 MG CAP PO SCH ×2 (07:55→23:22)
[2018-11-02] MEDS: GABAPENTIN 300 MG CAP PO SCH ×3 (07:55→23:23)
[2018-11-02] MEDS: TRIAMCINOLONE ACET 0.1% OINTMENT 15 GM TUBE TOPICAL SCH ×2 (08:40→23:23)
[2018-11-02] MEDS: AMMONIUM LACTATE 12% LOTION 225 GM BTL TOPICAL SCH ×2 (08:40→23:23)
[2018-11-02] MEDS ORDERED: LIDOCAINE 1% INJ 10MG/ML (20 ML MDV) SQ ONE (09:18)
--- NOTE | 2018-11-02 09:28 | P.CONS ---
History of Present Illness - Reason for Consult Consult date: 11/02/18 - Chief Complaint Pain and shortness of breath - History of Present Illness This is a 63-year-old male with history of multiple myeloma of a nonsecretory type that was diagnosed in 2009. The patient has been receiving treatment under the care of Dr. Reynolds and after 4 sessions of Velcade and Decadron the patient's underwent an autologous stem cell transplantation in 2010 and the patient remained stable 2013. A repeat bone marrow biopsy that was done on 11/01/2017 showed 60% plasma cells with normal cytogenetics and the fish positive for translocation 11 ,14. The patient was treated with a combination of Revlimid and dexamethasone and Ixazomib. Following that, the treatment was held in en2018 due to severe pancytopenia. Since then the patient has been having several pulmonary complications most significant of which was an empyema the developed in the left lung. After being treated in our facility the patient was transferred to [facility] where he underwent a thoracoscopic decortication and the Pleurx catheter insertion and the patient was transferred back to [place] for further care. At this point in time the Pleurx catheter is in place and the patient is having some limited drainage around 20-30 mL of output every other day. The patient was also receiving radiation therapy to the left femur due to ongoing pain in that area. Patient was recently hosp italized with concerns to pneumonia, and was followed with his oncologist. It is noticed that his recent chemotherapy has not been effective they're planning for a ulceration of course. The patient was home for a short period of time when his shortness of breath fatigue and malaise in pain became unmanageable in counseling presented back to the emergency center. The patient relates that at rest he is mildly short of breath. His pain is better controlled this morning. He awaits his son to come by to bring him some breakfast. Patient relates he did have a temperature 102 at home alone not being seen since his arrival here. Review of Systems Patient feels quite poorly overall HEENT:Denies headache or acute visual change. Denies sinus or mouth discomforts. Denies neck stiffness or pain. Denies significant oral cavity pain. Denies difficulty on swallowing. Lungs: Patient has shortness of breath, dyspnea with exertion but no orthopnea. Denies hemoptysis Cardiovascular: Does have some chest wall pain especially the left side with the catheter is in place, Gastrointestinal:Denies nausea, vomiting, diarrhea, constipation, hematemesis, melena, hematochezia. No no significant change of bowel habit noticed. Musculoskeletal: Generalized body aches occur Skin: Generalized ecchymosis low platelets Neuro: Denies headache or visual change. Generalized weakness but no focal weakness Psychiatric disease related anxiety depression Endocrine: Profound fatigue and some weight loss has occurred Past Medical History Past Medical History: Coronary Artery Disease (CAD), Cancer, COPD, GERD/Reflux, Hyperlipidemia, Hypertension, Myocardial Infarction (VT), Pneumonia Additional Past Medical History / Comment(s): Pt recently admitted 10/24/18 to [facility] with R upper lobe pneumonia. Other HX: 2010 diagnosed with multiple myeloma-tx with chemo in 2009 and in 2010 had stem cell transplant, recently found L hilar mass-has had it biopsied-negative, severe thrombocytopenia, pancytopenia, MRI at [facility] 09/11/18 showed bone lesions/L femoral neck lesion-being tx with radiation, recent L pleural effusion/empyema-had decortication L lung at [facility] and has L pleurx cath in place, pt states he is on HTN med and cholesterol medications since his MIs prophylactically, gastric ulcer years ago, low back pain, neuropathy bilateral legs/feet since chemo for multiple myeloma treated, sinus problems. Last Myocardial Infarction Date:: 01/09/14, FEB 2005 History of Any Multi-Drug Resistant Organisms: None Reported Past Surgical History: Heart Catheterization, Heart Catheterization With Stent Additional Past Surgical History / Comment(s): 2011 Stem cell transplant, multiple bone marrow bxs, 08/08/18 and 08/16/18 bronchoscopies/biopsies/needle aspiration, EGD/colonoscopy, [facility]-L lung decortication and has left Pleurx catheter drainage system in place Past Anesthesia/Blood Transfusion Reactions: No Reported Reaction Additional Past Anesthesia/Blood Transfusion Reaction / Comm: Pt states he received blood in past without reaction. Date of Last Stent Placement:: 01/09/14 Additional Psychological History / Comment(s): Patient was a smoker one pack per day for 40 years and quit in June of this year. He denies any marijuana, street drug or alcohol use. He lives at home with his and dog. 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 No service and no recent travel. Smoking Status: Former smoker - Past Family History Father Family Medical History: Cancer Additional Family Medical History / Comment(s): LUNG CA Son(s) Family Medical History: Cancer Additional Family Medical History / Comment(s): BLADDER CA Mother Family Medical History: No Reported History Additional Family Medical History / Comment(s): Mother is healthy and is 86yrs old. Medications and Allergies Home Medications and Allergies Comment(s): Current Medications Acyclovir (Zovirax) 400 mg PO BID [facility] Last Admin: 11/02/18 07:55 Dose: 400 mg Documented by: Albuterol/Ipratropium (Duoneb 0.5 Mg-3 Mg/3 Ml Soln) 3 ml INHALATION RT-QID [facility] Last Admin: 11/02/18 07:08 Dose: 3 ml Documented by: Atorvastatin Calcium (Lipitor) 40 mg PO AC-LUNCH [facility] Last Admin: 11/01/18 07:59 Dose: 40 mg Documented by: Famotidine (Pepcid) 20 mg PO HS [facility] Last Admin: 11/01/18 22:50 Dose: 20 mg Documented by: Folic Acid (Folic Acid) 1 mg PO DAILY@1200 [facility] Last Admin: 11/01/18 09:26 Dose: 1 mg Documented by: Gabapentin (Neurontin) 600 mg PO TID [facility] Last Admin: 11/02/18 07:55 Dose: 600 mg Documented by: Levofloxacin 750 mg/ IV (Solution) 150 mls @ 100 mls/hr IVPB Q24H [facility] Stop: 11/14/18 07:01 Last Admin: 11/02/18 07:05 Dose: 100 mls/hr Documented by: Piperacillin Sod/Tazobactam (Sod 3.375 gm/ Sodium Chloride) 100 mls @ 25 mls/hr IVPB Q8HR [facility] Stop: 11/11/18 16:01 Last Admin: 11/02/18 08:40 Dose: 25 mls/hr Documented by: Lactic Acid (Lac-Hydrin 12%) 1 applic TOPICAL BID [facility] Last Admin: 11/02/18 08:40 Dose: 1 applic Documented by: Loperamide HCl (Imodium) 2 mg PO QID PRN PRN Reason: Diarrhea Miscellaneous Information (Pneumonia Protocol Utilized) 1 each PO ONCE PRN PRN Reason: Per Protocol Multivitamins (Theragran) 1 each PO DAILY@1200 [facility] Last Admin: 11/01/18 07:59 Dose: 1 each Documented by: Ondansetron HCl (Zofran) 4 mg PO Q12HR PRN PRN Reason: Nausea Oxycodone/Acetaminophen (Percocet 10-325) 1 each PO Q4H PRN PRN Reason: Pain Last Admin: 11/02/18 07:55 Dose: 1 each Documented by: Sodium Chloride (Saline Flush) 10 ml IV BID [facility] Last Admin: 11/02/18 08:40 Dose: 10 ml Documented by: Triamcinolone Acetonide (Kenalog) 1 applic TOPICAL BID [facility] Last Admin: 11/02/18 08:40 Dose: 1 applic Documented by: Home Medications Medication Instructions Recorded Confirmed Type Gabapentin [Neurontin] 600 mg PO TID 01/08/14 11/01/18 History Atorvastatin [Lipitor] 40 mg PO AC-LUNCH 03/24/14 11/01/18 History Acyclovir [Zovirax] 400 mg PO BID 08/06/18 11/01/18 History oxyCODONE-APAP 10-325MG [Percocet 1 tab PO Q4H PRN 08/22/18 11/01/18 History 10-325 mg] Famotidine 20 mg PO HS 10/05/18 11/01/18 History Ondansetron [Zofran] 4 mg PO Q12HR PRN 10/18/18 11/01/18 History Folic Acid 1 mg PO DAILY@1200 #30 tab 10/29/18 11/01/18 Rx Loperamide [Imodium] 2 mg PO QID PRN #20 capsule 10/29/18 11/01/18 Rx Ammonium Lactate Lotion 1 applic TOPICAL BID applic 10/30/18 11/01/18 Rx [Lac-Hydrin 12% Lotion] Moxifloxacin HCl 400 mg PO DAILY #7 tab 10/30/18 11/01/18 Rx Triamcinolone 0.1% Ointment 1 applic TOPICAL BID applic 10/30/18 11/01/18 Rx [Kenalog 0.1% Ointment] Multivitamins, Thera [Multivitamin 1 tab PO DAILY@1200 11/01/18 11/01/18 History (formulary)] Allergies Allergy/AdvReac Type Severity Reaction Status Date / Time No Known Allergies Allergy Verified 11/01/18 03:11 Physical Exam Vitals: Vital Signs Temp Pulse Pulse Resp BP BP Pulse Ox 11/02/18 07:21 84 11/02/18 07:12 80 92 L 11/02/18 05:00 97.6 F 88 18 113/71 97 11/02/18 02:47 20 95 11/02/18 02:30 24 98 11/02/18 02:03 98.5 F 72 20 110/55 11/02/18 00:09 98.7 F 78 20 107/65 97 11/01/18 23:39 98 F 76 20 122/59 97 11/01/18 23:29 98 F 82 20 114/56 97 11/01/18 21:00 98.6 F 91 19 120/73 94 L 11/01/18 20:29 80 11/01/18 20:18 86 96 11/01/18 16:13 98.7 F 79 18 108/64 11/01/18 16:00 88 18 11/01/18 15:58 97.5 F L 77 18 109/58 11/01/18 15:44 90 11/01/18 15:34 88 11/01/18 15:28 98.2 F 82 18 110/65 11/01/18 15:18 98.2 F 80 18 116/59 11/01/18 11:23 98.7 F 88 16 112/69 92 L Intake and Output 11/01/18 11/02/18 11/02/18 22:59 06:59 14:59 Intake Total 605 410 Output Total 1100 Balance 605 -690 Intake: Intake, IV Titration 100 Amount Piperacillin-Tazobactam 3 100 .375 gm In Sodium Chloride 0.9% 100 ml @ 25 mls/hr IVPB Q8HR [facility] Rx# :[id number] Oral 400 Blood Product 205 310 Platelet Irr Pheresis 205 Acda1 Unit [id number] Rc Irr As1 Unit 310 [id number] Output: Urine 1100 Other: Voiding Method Bedside Commode Diaper Incontinent Gen: This is a 63-year-old male. He is sitting up in bed and appears to be comfortable and in no acute distress. The patient is able to speak in full sentences. HEENT: Head is atraumatic, normocephalic. Pupils equal, round. Sclerae is anicteric. Conjunctiva pink. Mucous membranes of the mouth are moist. White patchy and yellow patchy substance on his tongue. NECK: Supple. No JVD. No lymphadenopathy. No thyromegaly. LUNGS: There is bilateral air entry, expiratory wheezes scattered, dullness of the left base Pleurx to the left posterior chest wall. No signs of tenderness, erythema or edema. HEART: Regular rate and rhythm. No murmur. ABDOMEN: Soft. Bowel sounds are present. No masses. No tenderness. EXTREMITIES: 2+ bilateral pedal edema. No calf tenderness. Dorsalis pedis +2 bilaterally. Significant amount of ecchymosis noted to the upper extremities NEUROLOGICAL: Patient is awake, alert and oriented x3. Results CBC & Chem 7: 11/02/18 05:30 11/01/18 03:50 Labs: Abnormal Lab Results - Last 24 Hours (Table) 11/01/18 11/01/18 11/01/18 Range/Units 03:50 03:50 03:50 WBC (3.8-10.6) k/uL RBC (4.30-5.90) m/uL Hgb (13.0-17.5) gm/dL Hct (39.0-53.0) % RDW (11.5-15.5) % Plt Count 9 L* D (150-450) k/uL Neutrophils # (Manual) (1.3-7.7) k/uL Lymphocytes # (Manual) 0.83 L (1.0-4.8) k/uL Metamyelocytes # (Man) 0.03 H (0) k/uL Myelocytes # (Manual) 0.03 H (0) k/uL Plasma Cell # (Manual) 0.13 H (0) k/uL Nucleated RBCs (0-0) /100 WBC PT (9.0-12.0) sec INR (<1.2) Lactate Dehydrogenase 697 H (313-618) U/L Total Protein (PEP) 5.2 L (6.2-8.2) g/dL Crossmatch 11/01/18 11/01/18 11/02/18 Range/Units 15:22 16:03 05:30 WBC 2.0 L 2.9 L (3.8-10.6) k/uL RBC 2.09 L 2.56 L (4.30-5.90) m/uL Hgb 6.4 L* D 8.3 L D (13.0-17.5) gm/dL Hct 19.7 L* 24.7 L (39.0-53.0) % RDW 19.8 H 19.9 H (11.5-15.5) % Plt Count 6 L* 19 L* D (150-450) k/uL Neutrophils # (Manual) 1.10 L (1.3-7.7) k/uL Lymphocytes # (Manual) 0.62 L (1.0-4.8) k/uL Metamyelocytes # (Man) (0) k/uL Myelocytes # (Manual) (0) k/uL Plasma Cell # (Manual) 0.04 H 0.06 H (0) k/uL Nucleated RBCs 1 H (0-0) /100 WBC PT (9.0-12.0) sec INR (<1.2) Lactate Dehydrogenase (313-618) U/L Total Protein (PEP) (6.2-8.2) g/dL Crossmatch See Detail 11/02/18 Range/Units 05:30 WBC (3.8-10.6) k/uL RBC (4.30-5.90) m/uL Hgb (13.0-17.5) gm/dL Hct (39.0-53.0) % RDW (11.5-15.5) % Plt Count (150-450) k/uL Neutrophils # (Manual) (1.3-7.7) k/uL Lymphocytes # (Manual) (1.0-4.8) k/uL Metamyelocytes # (Man) (0) k/uL Myelocytes # (Manual) (0) k/uL Plasma Cell # (Manual) (0) k/uL Nucleated RBCs (0-0) /100 WBC PT 13.9 H (9.0-12.0) sec INR 1.4 H (<1.2) Lactate Dehydrogenase (313-618) U/L Total Protein (PEP) (6.2-8.2) g/dL Crossmatch Laboratory Results WBC 2.9 k/uL (3.8-10.6) L 11/02/18 05:30 RBC 2.56 m/uL (4.30-5.90) L 11/02/18 05:30 Hgb 8.3 gm/dL (13.0-17.5) L D 11/02/18 05:30 Hct 24.7 % (39.0-53.0) L 11/02/18 05:30 MCV 96.8 fL (80.0-100.0) 11/02/18 05:30 MCH 32.5 pg (25.0-35.0) 11/02/18 05:30 MCHC 33.6 g/dL (31.0-37.0) 11/02/18 05:30 RDW 19.9 % (11.5-15.5) H 11/02/18 05:30 Plt Count 19 k/uL (150-450) L* D 11/02/18 05:30 Neutrophils % Not Reportable 11/01/18 15:22 Neutrophils % (Manual) 47 % 11/02/18 05:30 Band Neutrophils % 7 % 11/02/18 05:30 Lymphocytes % Not Reportable 11/01/18 15:22 Lymphocytes % (Manual) 35 % 11/02/18 05:30 Monocytes % Not Reportable 11/01/18 15:22 Monocytes % (Manual) 3 % 11/01/18 15:22 Eosinophils % Not Reportable 11/01/18 15:22 Eosinophils % (Manual) 9 % 11/02/18 05:30 Basophils % Not Reportable 11/01/18 15:22 Metamyelocytes % 1 % 11/01/18 03:50 Myelocytes % 1 % 11/01/18 03:50 Promyelocytes % Not Reportable 11/01/18 03:50 Blast Cells % AFFIRMATIVE ACTION SPECIALIST 11/01/18 03:50 Neutrophils # Not Reportable 11/01/18 15:22 Neutrophils # (Manual) 1.50 k/uL (1.3-7.7) 11/02/18 05:30 Lymphocytes # Not Reportable 11/01/18 15:22 Lymphocytes # (Manual) 1.02 k/uL (1.0-4.8) 11/02/18 05:30 Monocytes # Not Reportable 11/01/18 15:22 Monocytes # (Manual) 0.06 k/uL (0-1.0) 11/01/18 15:22 Eosinophils # Not Reportable 11/01/18 15:22 Eosinophils # (Manual) 0.26 k/uL (0-0.7) 11/02/18 05:30 Basophils # Not Reportable 11/01/18 15:22 Metamyelocytes # (Man) 0.03 k/uL (0) H 11/01/18 03:50 Myelocytes # (Manual) 0.03 k/uL (0) H 11/01/18 03:50 Promyelocytes # (Man) AFFIRMATIVE ACTION SPECIALIST 11/01/18 03:50 Blast Cells # (Man) AFFIRMATIVE ACTION SPECIALIST 11/01/18 03:50 Plasma Cell # (Manual) 0.06 k/uL (0) H 11/02/18 05:30 Nucleated RBCs 1 /100 WBC (0-0) H 11/02/18 05:30 Manual Slide Review Performed 11/02/18 05:30 Pathologist Review Cancelled 11/01/18 03:50 Plasma Cells % 2 % 11/02/18 05:30 Toxic Granulation Present 11/02/18 05:30 Toxic Vacuolation Present 11/01/18 03:50 Polychromasia Present 11/02/18 05:30 Hypochromasia Slight 11/02/18 05:30 Poikilocytosis (manual Present 11/01/18 15:22 Anisocytosis Slight 11/02/18 05:30 Macrocytosis Slight 11/02/18 05:30 PT 13.9 sec (9.0-12.0) H 11/02/18 05:30 INR 1.4 (<1.2) H 11/02/18 05:30 APTT 26.3 sec (22.0-30.0) 11/01/18 03:50 D-Dimer 14.34 mg/L FEU (<0.60) H 11/01/18 03:50 Sodium 140 mmol/L (137-145) 11/01/18 03:50 Potassium 3.8 mmol/L (3.5-5.1) 11/01/18 03:50 Chloride 112 mmol/L (98-107) H 11/01/18 03:50 Carbon Dioxide 18 mmol/L (22-30) L 11/01/18 03:50 Anion Gap 10 mmol/L 11/01/18 03:50 BUN 14 mg/dL (9-20) 11/01/18 03:50 Creatinine 0.64 mg/dL (0.66-1.25) L 11/01/18 03:50 Est GFR (CKD-EPI)AfAm >90 (>60 ml/min/1.73 sqM) 11/01/18 03:50 Est GFR (CKD-EPI)NonAf >90 (>60 ml/min/1.73 sqM) 11/01/18 03:50 Glucose 127 mg/dL (74-99) H 11/01/18 03:50 Calcium 8.9 mg/dL (8.4-10.2) 11/01/18 03:50 Total Bilirubin 1.3 mg/dL (0.2-1.3) 11/01/18 03:50 AST 20 U/L (17-59) 11/01/18 03:50 ALT 19 U/L (21-72) L 11/01/18 03:50 Alkaline Phosphatase 77 U/L (38-126) 11/01/18 03:50 Lactate Dehydrogenase 697 U/L (313-618) H 11/01/18 03:50 Troponin I <0.012 ng/mL (0.000-0.034) 11/01/18 03:50 NT-Pro-B Natriuret Pep 7470 pg/mL 11/01/18 03:50 Total Protein 5.5 g/dL (6.3-8.2) L 11/01/18 03:50 Total Protein (PEP) 5.2 g/dL (6.2-8.2) L 11/01/18 03:50 Albumin 2.7 g/dL (3.5-5.0) L 11/01/18 03:50 Blood Type A Positive 11/01/18 16:03 Blood Type Recheck No 11/01/18 16:03 Antibody Screen NEGATIVE 11/01/18 16:03 Crossmatch See Detail 11/01/18 16:03 Transfuse Platelets 11/01/18 11/01/18 06:22 Spec Expiration Date 11/04/2018230211/01/18 16:03 Assessment and Plan (1) Pneumonia Narrative/Plan: 63-year-old male with a very complex past medical history regarding his multiple myeloma and its treatments. He has noticed he is status post allogenic pulmonary transplantation, chemotherapies that have all failed. He recently has had increased bony metastasis has had some radiation therapy for his pain. He was just hospitalized and there was concerns pneumonia. Despite oral antibiotic therapy at home he had worsening shortness of breath and appears to have ongoing disease progression. He is now admitted and has been seen by on cology who are planning a new regimen. Cultures are pending. Antibiotic therapy for gram-negative pneumonia is being utilized with Zosyn and Levaquin. The patient's pleural fluid did show evidence of MSSA which Zosyn should be adequate for this time while other cultures are pending. Patient is encouraged to improve his protein intake Cultures will be monitored including Legionella and de-escalate antibiotic therapy as possible. Current Visit: Yes Status: Acute Code(s): J18.9 - PNEUMONIA, UNSPECIFIED ORGANISM SNOMED Code(s): 905504651 (2) Bicytopenia Current Visit: Yes Status: Chronic Priority: Medium Code(s): D75.89 - OTHER SPECIFIED DISEASES OF BLOOD AND BLOOD-FORMING ORGANS SNOMED Code(s): 245378396 (3) Compression fracture of lumbar spine, non-traumatic Current Visit: Yes Status: Acute Code(s): M48.56XA - COLLAPSED VERTEBRA, NEC, LUMBAR REGION, INIT SNOMED Code(s): 565662251
--- NOTE | 2018-11-02 10:26 | IR ---
PICC LINE PLACEMENT: HISTORY: Chemotherapy PROCEDURE: Ultrasound and fluoroscopic guidance of PICC line placement. COMPLICATIONS: None ANESTHESIA: 1. 1% Lidocaine locally. FINDINGS/TECHNIQUE: The procedure was explained to the patient. The risks, complications, benefits and alternatives were discussed and any questions were answered. Informed consent was obtained. The patient was placed supine on the fluoroscopic table and prepped and draped in the usual sterile fash ion. Utilizing a 21 gauge needle and sonographic and fluoroscopic guidance, access in the right cep halic vein was achieved and there is placement of a 0.018 guidewire. The vein is patent. A 4-F candelaria th was placed over the guidewire. The guidewire and dilator were removed and a 4-F. PICC line was pl aced through the sheath with the tip at the level of the SVC. The sheath was removed, the catheter w as flushed and sutured into position. The patient was stable throughout the procedure and remained s table upon discharge from the Department of Radiology. The vein puncture was patent under ultrasound. A donovan scale image was obtained to document patency of the vein punctured. All elements of the maximal barrier technique were utilized. FLUOROSCOPY TIME: 0.3 minutes and one image submitted IMPRESSION: Successful PICC line placement under ultrasound and fluoroscopic guidance.
[2018-11-02] MEDS: ATORVASTATIN 40 MG TAB PO SCH (11:53)
[2018-11-02] MEDS: MULTIVITAMINS, THERA 1 EACH TAB PO SCH (11:53)
[2018-11-02] MEDS: FOLIC ACID 1 MG TAB PO SCH (11:55)
--- NOTE | 2018-11-02 12:26 | P.PN ---
Subjective Progress Note Date: 11/02/18 Principal diagnosis: Multilobar pneumonia This is a very pleasant 63-year-old male patient who follows with Dr. Coelho as his primary care physician. The patient has history of multiple myeloma of a nonsecretory type that was diagnosed in 2009. The patient has been receiving treatment under the care of Dr. Reynolds and after 4 sessions of Velcade and Decadron the patient's underwent an autologous stem cell transplantation in 2010 and the patient remains stable 2013. A repeat bone marrow biopsy that was done on 11/02/2079 showed 60% plasma cells with normal cytogenetics and the fish positive for translocation 11 ,14. The patient was treated with a combination of Revlimid and dexamethasone and Ixazomib. Following that, the treatment was held in general 2018 due to severe pancytopenia. Since then the patient has been having several pulmonary complications most significant of which was an empyema the developed in the left lung. After being treated in our facility the patient was transferred to [facility] where he underwent a thoracoscopic decortication and the Pleurx catheter insertion and the patient was transferred back to [place] for further care. At this point in time the Pleurx catheter is in place and the patient is having some limited drainage around 20-30 mL of output every other day. The patient me was also receiving radiation therapy to the left femur due to ongoing pain in that area. He was just discharged here from another admission for an acute right upper lobe pneumonia and pancytopenia on 10/30/2018. He presented here again early this morning with complaints of increasing shortness of breath and back pain. Chest x-ray showed some increasing opacity in the right lung base compared to previous of 10/29/2018. CT angiogram was limited by artifact but there were no large saddle embolus. There is improved aeration of the left lung compared to previous CT of 08/31/2018. Pleural catheter remains in place. Small left pleural effusion. Some areas of loculated pleural fluid as on previous. There is a small right pleural effusion and suspected atelectasis and left lung and suspected pneumonia on the right. Probable decrease in size of the left lung mass. There was noted increased density left greater than right possibly hemorrhage versus metastatic involvement. There is metastatic bone disease and new compression deformities in the spine compared to previous, suspect pathologic fractures. He is seen today in consultation on the regular medical floor. He is currently awake and alert in no acute distress. Resting fairly comfortably in bed. He is maintained on Percocet for pain control. Maintaining O2 saturations in the mid 90s on 5 L/m per nasal cannula. Currently afebrile. Hemodynamically stable. White count 3.2. Hemoglobin 8.8. Platelet count is pending. Sodium 140. Potassium 3.8. Bicarb 18. Creatinine 0.64. Troponin negative 1. He has been initiated on Zosyn and Levaquin. The patient is seen today 11/02/2018 in follow-up on the regular medical floor. He is awake and alert in no acute distress. He continues with a loose nonproductive cough. No fever or chills. Currently afebrile. Maintaining O2 saturations in the 90s on 4 L or minute per nasal cannula. He is still quite weak. Yesterday he did require 1 unit of packed red blood cells for hemoglobin of 6.4. One unit of platelets for platelet count of 6000. Today's hemoglobin 8.3. Platelets 19,000. White count 2.9. He has been seen by infectious disease and remains on Zosyn and Levaquin. Objective - Vital Signs Vital signs: Vital Signs Temp 97.6 F 11/02/18 05:00 Pulse 88 11/02/18 11:07 Resp 22 11/02/18 08:00 BP 113/71 11/02/18 05:00 Pulse Ox 92 L 11/02/18 07:12 Intake & Output 11/01/18 11/02/18 11/02/18 18:59 06:59 18:59 Intake Total 305 810 Output Total 1100 Balance 305 -290 Intake: Intake, IV Titration 100 100 Amount Piperacillin-Tazobactam 3 100 .375 gm In Sodium Chloride 0.9% 100 ml @ 200 mls/hr IVPB ONCE STA Rx#:[id number] Piperacillin-Tazobactam 3 100 .375 gm In Sodium Chloride 0.9% 100 ml @ 25 mls/hr IVPB Q8HR [facility] Rx# :[id number] Oral 400 Blood Product 205 310 Platelet Irr Pheresis 205 Acda1 Unit [id number] Rc Irr As1 Unit 310 [id number] Output: Urine 1100 Other: Voiding Method Bedside Commode Diaper Incontinent - Exam GENERAL EXAM: A very pleasant pale, weak 63-year-old gentleman. Alert, and oriented 3. The patient is currently on 4 L/m per nasal cannula. EYES: Normal reaction of pupils, equal size. NOSE: Clear with pink turbinates. THROAT: No erythema or exudates. NECK: No masses, no JVD. CHEST: No chest wall deformity. LUNGS: Patient diminished breath on the left lung base and the patient has a Pleurx catheter in the left hemithorax. CVS: S1 and S2 normal with no audible murmur, regular rhythm. ABDOMEN: No hepatosplenomegaly, normal bowel sounds, no guarding or rigidity. SPINE: No scoliosis or deformity SKIN: No rashes CENTRAL NERVOUS SYSTEM: No focal deficits, tone is normal in all 4 extremities. EXTREMITIES: There is no peripheral edema. No clubbing, no cyanosis. Peripheral pulses are intact. - Labs CBC & Chem 7: 11/02/18 05:30 11/01/18 03:50 Labs: Abnormal Lab Results - Last 24 Hours (Table) 11/01/18 11/01/18 11/01/18 Range/Units 03:50 03:50 03:50 WBC (3.8-10.6) k/uL RBC (4.30-5.90) m/uL Hgb (13.0-17.5) gm/dL Hct (39.0-53.0) % RDW (11.5-15.5) % Plt Count 9 L* D (150-450) k/uL Neutrophils # (Manual) (1.3-7.7) k/uL Lymphocytes # (Manual) 0.83 L (1.0-4.8) k/uL Metamyelocytes # (Man) 0.03 H (0) k/uL Myelocytes # (Manual) 0.03 H (0) k/uL Plasma Cell # (Manual) 0.13 H (0) k/uL Nucleated RBCs (0-0) /100 WBC PT (9.0-12.0) sec INR (<1.2) Lactate Dehydrogenase 697 H (313-618) U/L Total Protein (PEP) 5.2 L (6.2-8.2) g/dL Free [place] LC, Quant 2.69 H (0.33-1.94) mg/dL Free Lambda LC, Quant 2.92 H (0.57-2.63) mg/dL Crossmatch 11/01/18 11/01/18 11/02/18 Range/Units 15:22 16:03 05:30 WBC 2.0 L 2.9 L (3.8-10.6) k/uL RBC 2.09 L 2.56 L (4.30-5.90) m/uL Hgb 6.4 L* D 8.3 L D (13.0-17.5) gm/dL Hct 19.7 L* 24.7 L (39.0-53.0) % RDW 19.8 H 19.9 H (11.5-15.5) % Plt Count 6 L* 19 L* D (150-450) k/uL Neutrophils # (Manual) 1.10 L (1.3-7.7) k/uL Lymphocytes # (Manual) 0.62 L (1.0-4.8) k/uL Metamyelocytes # (Man) (0) k/uL Myelocytes # (Manual) (0) k/uL Plasma Cell # (Manual) 0.04 H 0.06 H (0) k/uL Nucleated RBCs 1 H (0-0) /100 WBC PT (9.0-12.0) sec INR (<1.2) Lactate Dehydrogenase (313-618) U/L Total Protein (PEP) (6.2-8.2) g/dL Free [place] LC, Quant (0.33-1.94) mg/dL Free Lambda LC, Quant (0.57-2.63) mg/dL Crossmatch See Detail 11/02/18 Range/Units 05:30 WBC (3.8-10.6) k/uL RBC (4.30-5.90) m/uL Hgb (13.0-17.5) gm/dL Hct (39.0-53.0) % RDW (11.5-15.5) % Plt Count (150-450) k/uL Neutrophils # (Manual) (1.3-7.7) k/uL Lymphocytes # (Manual) (1.0-4.8) k/uL Metamyelocytes # (Man) (0) k/uL Myelocytes # (Manual) (0) k/uL Plasma Cell # (Manual) (0) k/uL Nucleated RBCs (0-0) /100 WBC PT 13.9 H (9.0-12.0) sec INR 1.4 H (<1.2) Lactate Dehydrogenase (313-618) U/L Total Protein (PEP) (6.2-8.2) g/dL Free [place] LC, Quant (0.33-1.94) mg/dL Free Lambda LC, Quant (0.57-2.63) mg/dL Crossmatch Assessment and Plan Assessment: Impression: #1 Acute hypoxemic respiratory failure secondary to increasing right lung opacity/pneumonia as well as involvement of the both the right lower and mid lobes. In addition there is some limited infiltration of the left midlung and chronic consolidation of left lower lobe, a residual of a previous empyema and the patient is a Pleurx catheter in place with some ongoing drainage which has dropped significantly over this past few weeks. The patient is immunocompromised. #2 Pancytopenia, a complication of multiple myeloma. Status post 1 unit of packed red blood cells and 1 dose of platelets. #3 History of a spontaneous perirenal hemorrhage along the left anterior perirenal space extending to the left kidney and left renal vein. #4 History of multiple myeloma post bone marrow transplantation #5 Generalized weakness, anorexia and ongoing constitutional symptoms and weight loss, secondary to above #6 Left lung empyema without evidence of any malignancy. The patient is undergone thoracotomy with decortication and the cultures of been negative and the patient has a Pleurx catheter in place output of which is minimal at this point in time #7 Coronary artery disease with previous coronary stent insertion and cardiac catheterization, currently free of any chest pain #8 COPD #9 Hypertension #10 Hyperlipidemia #11 Known history of coronary artery disease #12 Previous history of bone marrow transplantation and the patient undergone stem cell transplant in 2010 #13 Chronic back pain and myeloma related lytic lesions throughout the skeletal system, possible new pathologic fractures. #14 Peripheral neuropathy #15 Peptic ulcer disease #16 Hip pain completed radiation therapy Plan: The patient was seen and evaluated by Dr. Morejon. Plan to drain the Pleurx see if there is any free flowing fluid. Repeat a chest x-ray in the a.m. The patient received a PICC line today. We'll continue with current antibiotics in the form of Zosyn and Levaquin. The patient's overall prognosis is guarded due to his ongoing pancytopenia secondary to his multiple myeloma. We will continue to follow and make further recommendations based on his clinical status. He may need subacute rehabilitation post discharge. I, the cosigning physician, performed a history & physical examination of the patient. Lungs sounds with bilateral scattered rhonchi. Maintaining good O2 saturations in the 90s on 4 L/m per nasal cannula. I discussed the assessment and plan of care with my nurse practitioner, Sona Edmond. I attest to the above note as dictated by her.
[2018-11-02 12:52] LABS: Immunoglobulin M 21.2 mg/dL (40.0-280.0)
[2018-11-02 13:27] LABS: Albumin 2.39 g/dL (3.80-4.90)
--- NOTE | 2018-11-02 21:19 | US ---
EXAMINATION TYPE: US venous doppler duplex LE DATE OF EXAM: 11/02/2018 9:09 PM COMPARISON: NONE CLINICAL HISTORY: bruising petechiae. bruising petechiae bilaterally, worse on the left SIDE PERFORMED: Bilateral TECHNIQUE: The lower extremity deep venous system is examined utilizing real time linear array sonog tanika with graded compression, doppler sonography and color-flow sonography. VESSELS IMAGED: External Iliac Vein (EIV) Common Femoral Vein Deep Femoral Vein Greater Saphenous Vein * Femoral Vein Popliteal Vein Small Saphenous Vein * Proximal Calf Veins (* superficial vessels) Right Leg: No evidence of DVT as visualized Left Leg: No evidence of DVT as visualized IMPRESSION: Normal bilateral leg duplex venous sonogram.
--- NOTE | 2018-11-02 22:23 | PN ---
PROGRESS NOTE DATE OF SERVICE: 11/02/2018 PRESENTING COMPLAINT: Feeling unwell. INTERVAL HISTORY: This is a patient with multiple myeloma, a few recent admissions for pneumonia, who was just discharged from the hospital, again readmitted with pneumonia. Feels a little bit better today. Still short of breath, easily tired, getting antibiotics. Though somewhat tired and feeling a bit down because of overall prognosis. REVIEW OF SYSTEMS: Done for constitutional, cardiovascular, GI, pulmonary; relevant findings as above. CURRENT MEDICATIONS: Reviewed. They include IV Levaquin, IV Zosyn. PHYSICAL EXAMINATION: Temperature 98, pulse 102, respiration 17, blood pressure 113/71, pulse ox 92% on 4 L. GENERAL APPEARANCE: Sitting up, tired-appearing. EYES: Pupils equal. Conjunctivae pale. NECK: JVD unable to assess. Mass not palpable. RESPIRATORY: Effort increased. LUNGS: Decreased breath sounds. Some crackles. CARDIOVASCULAR: First and second sounds normal. Edema present. ABDOMEN: Soft, non-tender. Liver and spleen not palpable. PSYCHIATRY: Alert and oriented x3. Mood and affect a bit tired-appearing. DERMATOLOGICAL: Some petechiae, both in the arms and legs. INVESTIGATIONS: White count 2.9, hemoglobin 8.3, platelets 19. Pro-time 13.9. ASSESSMENT: 1. Bilateral pneumonia. Suspect gram-negative organism in a patient who is rather immunosuppressed. 2. Chronic compression fracture of T7-T8 with radiculopathy. 3. Coronary artery disease. 4. Chronic obstructive pulmonary disease in an ex-smoker. 5. Gastroesophageal reflux disease. 6. Hyperlipidemia. 7. Essential hypertension. 8. Advancing multiple myeloma with left-sided pleural effusion with a PleurX in place. 9. Peripheral neuropathy from chemotherapy. 10.Pancytopenia due to chemotherapy. 11.Chronic left pleural effusion from multiple myeloma with a PleurX in place. PLAN: Discussed with Dr. Blankenship from Oncology. Prognosis is guarded. Also discussed with Dr. Morejon. Will see how the patient does with the current treatment plan. Patient is being followed also by Dr. Watt, Infectious Disease. Depending on the clinical course, further determination will be made, in view of whether he needs to get more treatment or if her fails treatment to go the hospice route. At this point, we will see clinically how he does. The patient is slow to respond. MMODL / IJN: [id number] /
[2018-11-02] MEDS: FAMOTIDINE 20 MG TAB PO SCH (23:23)
[2018-11-03] MEDS: oxyCODONE-APAP 10-325MG 1 EACH TAB PO PRN ×5 (01:28→20:29)
[2018-11-03] MEDS: PIPERACILLIN-TAZOBACTAM 3.375 GM in SODIUM CHLORIDE 0.9% 100 ML IVPB SCH ×3 (03:00→16:20)
[2018-11-03 06:47] LABS: Anisocytosis Moderate; MCHC 33.2 g/dL (31.0-37.0); MCV 93.5 fL (80.0-100.0); Macrocytosis Slight; Mean Platelet Volume 8.6; RBC 2.07 m/uL (4.30-5.90); RDW 20.5 % (11.5-15.5); WBC 1.6 k/uL (3.8-10.6)
[2018-11-03 07:05] LABS: HCT 19.4 % (39.0-53.0); HGB 6.4 gm/dL (13.0-17.5)
[2018-11-03 07:06] LABS: Platelet Count 23 k/uL (150-450)
[2018-11-03] MEDS: IPRATROPIUM-ALBUTEROL 3 ML NEB INHALATION SCH ×4 (07:21→20:44)
[2018-11-03] MEDS: LEVOFLOXACIN 750MG-D5W PMX 750 MG in DEXTROSE/WATER 1 150ML.BAG IVPB SCH (07:28)
[2018-11-03 08:53] LABS: Band Neutrophils % 5 %; Eosinophils # (M) 0.16 k/uL (0-0.7); Lymphocytes # (M) 0.61 k/uL (1.0-4.8); Monocytes # (M) 0.05 k/uL (0-1.0); Neutrophils % (M) 40 %; Nucleated Red Blood Cells 1 /100 WBC (0-0); Plasma Cells # (M) 0.06 k/uL (0); Plasma Cells % 4 %; Poikilocytosis (M) Present; Total Cells Counted 100
[2018-11-03] MEDS: ACYCLOVIR 200 MG CAP PO SCH ×2 (09:04→20:29)
[2018-11-03] MEDS: GABAPENTIN 300 MG CAP PO SCH ×3 (09:04→21:55)
[2018-11-03] MEDS: TRIAMCINOLONE ACET 0.1% OINTMENT 15 GM TUBE TOPICAL SCH ×2 (09:05→20:30)
[2018-11-03] MEDS: AMMONIUM LACTATE 12% LOTION 225 GM BTL TOPICAL SCH ×2 (09:05→20:30)
[2018-11-03] MEDS: ATORVASTATIN 40 MG TAB PO SCH (11:59)
[2018-11-03] MEDS: MULTIVITAMINS, THERA 1 EACH TAB PO SCH (12:00)
[2018-11-03] MEDS: FOLIC ACID 1 MG TAB PO SCH (12:00)
--- NOTE | 2018-11-03 12:07 | XR ---
EXAMINATION TYPE: XR chest 1V portable DATE OF EXAM: 11/03/2018 HISTORY: Pneumonia. REFERENCE: Previous study dated 11/01/2018. FINDINGS: There is worsening interstitial and airspace disease on the right. There is worsening lower lobe airspace disease on the left. Heart size is upper limits of normal. No definite pleural fluid i s seen. IMPRESSION: WORSENING BILATERAL INTERSTITIAL AND AIRSPACE DISEASE.
[2018-11-03] MEDS ORDERED: TEMAZEPAM 15 MG CAP PO PRN (14:40)
[2018-11-03] MEDS: methylPREDNISolone SOD SUCCI 125 MG/2 ML VIAL IV SCH ×2 (16:17→19:41)
[2018-11-03 17:36] LABS: Glucose,Whole Blood 117 mg/dL (75-99)
[2018-11-03] MEDS: INSULIN ASPART (NovoLOG) 100 UNIT/ML VIAL SQ SCH ×2 (17:42→20:39)
--- NOTE | 2018-11-03 18:40 | PN ---
PROGRESS NOTE DATE OF SERVICE: 11/03/2018 This 63-year-old gentleman with a past medical history of multiple medical problems was admitted with shortness of breath with bilateral pneumonia possibly gram negative pneumonia suspected. Patient also had multiple myeloma. The patient also compression fractures of T7-8 with radiculopathy also. Most recent chest x-ray which was reviewed personally by me showed persistent bilateral pneumonia. Infection Disease is also following the patient closely. PAST MEDICAL HISTORY: Reviewed. REVIEW OF SYSTEMS: CARDIOVASCULAR SYSTEM: No angina. RESPIRATORY SYSTEM: As mentioned earlier. GI: As mentioned earlier. : No dysuria. NERVOUS SYSTEM: No numbness and weakness. CURRENT MEDICATIONS: Current medications are reviewed and include: 1. Zovirax 400 mg b.i.d. 2. DuoNeb q.i.d. 3. Lipitor 40 mg. 4. Pepcid 20 mg q.h.s. 5. Folic acid 1 mg p.o. 6. Neurontin 600 mg t.i.d. 7. Lac-Hydrin. 8. Imodium 2 mg q.i.d. p.r.n. 9. Multivitamins. 10.Zofran. 11.Percocet. 12.Zosyn. 13.Kenalog . PHYSICAL EXAMINATION: Patient is alert and oriented x3. Pulse 92, blood pressure is 123/65, respiration 12, temperature 98.1, pulse ox 97% on 15 L nasal cannula. HEENT: Conjunctivae pale. Oral mucosa moist. NECK: No jugular venous distention. No carotid bruit. No lymph node enlargement. CARDIOVASCULAR: S1, S2 muffled. No S3, no S4. RESPIRATORY: Breath sounds diminished at bases. Bilateral scattered rhonchi and crackles. Expiratory wheezing also present. ABDOMEN: Soft, nontender. LEGS: No edema, no swelling. NERVOUS SYSTEM: No focal deficits. LABS: WBC 1.6, hemoglobin is 6.4, platelets 23, neutrophils 70. INR is 1.4. Other labs are CO2 is 18 previously. Total protein 5.5. Albumin is 2.7. findings noted. ASSESSMENT: 1. Bilateral pneumonia with possibly gram-negative sepsis, present on admission. 2. Multiple myeloma immunosuppression. 3. Chronic compression fracture of T7-8 with radiculopathy. 4. History of coronary artery disease. 5. History of chronic obstructive pulmonary disease. 6. Gastroesophageal reflux disease. 7. Hyperlipidemia. 8. Hypertension. 9. Advanced multiple myeloma with left-sided pleural effusion with PleurX in place. 10.Peripheral neuropathy from chemotherapy. 11.Pancytopenia due to chemotherapy. 12.Chronic left pleural effusion with multiple myeloma with PleurX in place. 13.NO CODE. RECOMMENDATIONS AND DISCUSSION: In this 63-year-old gentleman who presented with multiple complex medical issues, will monitor the patient closely. The cultures are negative so far. The patient is on broad-spectrum IV antibiotics Zosyn and Levaquin. We will optimize the bronchodilator treatment. Continue to monitor. Guarded prognosis because of multiple complex medical issues. Further recommendations to follow. Closely follow with multiple consultants. Prognosis guarded. Currently patient is NO CODE. See orders for details. I also recommend course of steroids as well. MMODL / IJN: [id number] / MTDD
[2018-11-03 20:25] LABS: Glucose,Whole Blood 218 mg/dL (75-99)
[2018-11-03] MEDS: FAMOTIDINE 20 MG TAB PO SCH (20:29)
[2018-11-03] MEDS: BUDESONIDE 1 MG/2 ML NEBU INHALATION SCH (20:47)
[2018-11-03] MEDS: FORMOTEROL FUMARATE 20 MCG/2 ML NEBU INHALATION SCH (20:47)
[2018-11-03 21:50] LABS: Glucose,Whole Blood 221 mg/dL (75-99)
[2018-11-03] MEDS: ALPRAZolam 0.5 MG TAB PO PRN (22:23)
[2018-11-04] MEDS: methylPREDNISolone SOD SUCCI 125 MG/2 ML VIAL IV SCH ×4 (00:11→17:31)
[2018-11-04] MEDS: PIPERACILLIN-TAZOBACTAM 3.375 GM in SODIUM CHLORIDE 0.9% 100 ML IVPB SCH ×3 (00:11→19:30)
--- NOTE | 2018-11-04 00:46 | P.PN ---
Subjective Progress Note Date: 11/03/18 The patient remains quite weak. He has been coughing up blood, including some clots according to nursing. He has generalized swelling of extremities, with extensive confluent petechiae and bruising. No bleeding in the stool or urine noted. he has been more short of breath Objective - Vital Signs Vital signs: Vital Signs Temp 97.9 F 11/03/18 20:20 Pulse 90 11/03/18 20:57 Resp 20 11/03/18 20:57 BP 124/71 11/03/18 20:20 Pulse Ox 91 L 11/03/18 20:20 Intake & Output 11/03/18 11/03/18 11/04/18 06:59 18:59 06:59 Intake Total 359 1263 Balance 359 1263 Intake: Intake, IV Titration 100 Amount Piperacillin-Tazobactam 3 100 .375 gm In Sodium Chloride 0.9% 100 ml @ 25 mls/hr IVPB Q8HR [facility] Rx# :[id number] Oral 750 Blood Product 259 513 Platelet Irr Pheresis 2 203 Acda Unit [id number] Platelet Irr Pheresis 259 Acda1 Unit [id number] Rc Irr As1 Unit 310 [id number] Other: Voiding Method Bedside Commode Urinal Urinal Diaper Diaper Incontinent Incontinent # Voids 2 2 1 # Bowel Movements 1 1 - Constitutional General appearance: Present: no acute distress - EENT Eyes: Present: EOMI, PERRLA - Respiratory Respiratory: bilateral: diminished - Cardiovascular Rhythm: regular Heart sounds: normal: S1, S2 - Gastrointestinal General gastrointestinal: Present: normal bowel sounds, soft - Integumentary Integumentary Comment(s): Generalized erythema and swelling of upper and lower Ixodes, with extensive confluent petechiae and bruising Integumentary: Present: calor - Neurologic Neurologic: Present: CNII-XII intact - Musculoskeletal Musculoskeletal: Present: generalized weakness, strength equal bilaterally - Psychiatric Psychiatric: Present: A&O x's 3, appropriate affect - Labs CBC & Chem 7: 11/03/18 06:19 11/01/18 03:50 Labs: Abnormal Lab Results - Last 24 Hours (Table) 11/01/18 11/03/18 11/03/18 Range/Units 16:03 06:19 17:31 WBC 1.6 L (3.8-10.6) k/uL RBC 2.07 L (4.30-5.90) m/uL Hgb 6.4 L* D (13.0-17.5) gm/dL Hct 19.4 L* (39.0-53.0) % RDW 20.5 H (11.5-15.5) % Plt Count 23 L (150-450) k/uL Neutrophils # (Manual) 0.70 L (1.3-7.7) k/uL Lymphocytes # (Manual) 0.61 L (1.0-4.8) k/uL Plasma Cell # (Manual) 0.06 H (0) k/uL Nucleated RBCs 1 H (0-0) /100 WBC POC Glucose (mg/dL) 117 H (75-99) mg/dL Crossmatch See Detail 11/03/18 11/03/18 Range/Units 20:23 21:49 WBC (3.8-10.6) k/uL RBC (4.30-5.90) m/uL Hgb (13.0-17.5) gm/dL Hct (39.0-53.0) % RDW (11.5-15.5) % Plt Count (150-450) k/uL Neutrophils # (Manual) (1.3-7.7) k/uL Lymphocytes # (Manual) (1.0-4.8) k/uL Plasma Cell # (Manual) (0) k/uL Nucleated RBCs (0-0) /100 WBC POC Glucose (mg/dL) 218 H 221 H (75-99) mg/dL Crossmatch Microbiology - Last 24 Hours (Table) 11/02/18 07:15 Gram Stain - Preliminary Sputum Sputum Culture - Preliminary Assessment and Plan (1) Pneumonia Narrative/Plan: Patient had presented with a new pneumonia affecting the right lung, versus prior episodes affecting the left lung. He seemed to be improving with aggressive supportive care, but has been more short of breath overnight, with increased oxygen requirement of 9-10 liters per minute. Jp current regimen and aggressive supportive care Current Visit: Yes Status: Acute Code(s): J18.9 - PNEUMONIA, UNSPECIFIED ORGANISM SNOMED Code(s): 076459916 (2) Pancytopenia Narrative/Plan: Due to progressive myeloma. Hemoglobin is less than 7. 1 unit of blood transfusion was ordered. Platelets are greater than 20, but platelets were also ordered, due to hemoptysis. ANC was 700. The patient spikes fever, or ANC drops below 500, growth factors will be started.Continue monitoring, with supportive transfusions as needed Current Visit: No Status: Acute Priority: High Code(s): D61.818 - OTHER PANCYTOPENIA SNOMED Code(s): 894046761 (3) Myeloma Narrative/Plan: Progressive myeloma is a major underlying issue. The patient has not been able to have any systemic treatment now for almost 4 months, due to infection issues related to the left lung. He did receive palliative treatment to the hip area. He has not developed further progression, and now new pneumonia in the right lung. The case was discussed in detail with Dr. Reynolds his primary oncologist. The patient does have additional treatment options available, specifically Darzalex based combination being considered. However that would only be an option and the patient current condition improved with ongoing aggressive treatment. Repeat PEP studies are pending. He is also receiving bolus Decadron. He was advised that have his current condition does not improve and/or continues to deteriorate, then he would be unlikely to be able to be a candidate for specific myeloma therapy with the realistic chance of benefit. In that situation comfort care would be very reasonable to consider. The same was discu ssed with the admitting service. The patient's questions were answered to the best of my ability. At this time the plan would be continue current medical management, and follow his progress closely. The patient is no code no CPR appropriately. If he deteriorates despite continuing current aggressive medical care, comfort care would be reasonable to recommend Current Visit: No Status: Chronic Priority: Medium Code(s): C90.00 - MULTIPLE MYELOMA NOT HAVING ACHIEVED REMISSION SNOMED Code(s): 842658105
[2018-11-04] MEDS: oxyCODONE-APAP 10-325MG 1 EACH TAB PO PRN ×5 (03:33→21:47)
[2018-11-04 06:53] LABS: Glucose,Whole Blood 200 mg/dL (75-99)
[2018-11-04] MEDS: LEVOFLOXACIN 750MG-D5W PMX 750 MG in DEXTROSE/WATER 1 150ML.BAG IVPB SCH (07:56)
[2018-11-04] MEDS: ACYCLOVIR 200 MG CAP PO SCH ×2 (07:57→21:47)
[2018-11-04] MEDS: GABAPENTIN 300 MG CAP PO SCH ×3 (07:57→21:47)
[2018-11-04] MEDS: PANTOPRAZOLE 40 MG/10 ML VIAL IVP SCH (07:58)
[2018-11-04] MEDS: THIAMINE 100 MG TAB PO SCH (07:58)
[2018-11-04] MEDS: AMMONIUM LACTATE 12% LOTION 225 GM BTL TOPICAL SCH ×2 (07:59→21:48)
[2018-11-04] MEDS: INSULIN ASPART (NovoLOG) 100 UNIT/ML VIAL SQ SCH ×4 (07:59→21:47)
[2018-11-04] MEDS: TRIAMCINOLONE ACET 0.1% OINTMENT 15 GM TUBE TOPICAL SCH ×2 (07:59→21:48)
[2018-11-04 08:25] LABS: Anisocytosis Moderate; HCT 20.2 % (39.0-53.0); MCH 31.7 pg (25.0-35.0); MCHC 34.3 g/dL (31.0-37.0); MCV 92.4 fL (80.0-100.0); Macrocytosis Slight; Mean Platelet Volume 8.7; Poikilocytosis Slight; RBC 2.18 m/uL (4.30-5.90); RDW 20.6 % (11.5-15.5)
[2018-11-04 08:29] LABS: HGB 6.9 gm/dL (13.0-17.5); WBC 1.1 k/uL (3.8-10.6)
[2018-11-04 08:32] LABS: Anion Gap 5 mmol/L; Blood Urea Nitrogen 18 mg/dL (9-20); Calcium 7.8 mg/dL (8.4-10.2); Carbon Dioxide 25 mmol/L (22-30); Chloride 112 mmol/L (98-107); Glucose 187 mg/dL (74-99); Platelet Count 12 k/uL (150-450); Potassium 3.8 mmol/L (3.5-5.1); Sodium 142 mmol/L (137-145)
[2018-11-04] MEDS: IPRATROPIUM-ALBUTEROL 3 ML NEB INHALATION SCH ×4 (08:55→20:06)
[2018-11-04] MEDS: FORMOTEROL FUMARATE 20 MCG/2 ML NEBU INHALATION SCH ×2 (08:55→20:06)
[2018-11-04] MEDS: BUDESONIDE 1 MG/2 ML NEBU INHALATION SCH ×2 (08:55→20:06)
[2018-11-04 09:35] LABS: Eosinophils # (M) 0.02 k/uL (0-0.7); Lymphocytes # (M) 0.37 k/uL (1.0-4.8); Metamyelocytes # (M) 0.01 k/uL (0); Metamyelocytes % 1 %; Monocytes # (M) 0.03 k/uL (0-1.0); Neutrophils # (M) 0.68 k/uL (1.3-7.7); Neutrophils % (M) 62 %; Nucleated Red Blood Cells 3 /100 WBC (0-0); Total Cells Counted 200
[2018-11-04] MEDS: ALPRAZolam 0.5 MG TAB PO PRN ×2 (10:06→17:32)
[2018-11-04 11:30] LABS: Glucose,Whole Blood 193 mg/dL (75-99)
--- NOTE | 2018-11-04 12:51 | CT ---
EXAMINATION TYPE: CT chest wo con DATE OF EXAM: 11/04/2018 COMPARISON: Previous study dated 11/01/2018. HISTORY: Loculated pleural effusion. CT DLP: 445.1 mGycm. Automated Exposure Control for Dose Reduction was Utilized. TECHNIQUE: CT scan of the thorax is performed without IV contrast. FINDINGS: There continues to be right upper lobe airspace disease. There is honeycombing distal to th is which is a new finding. There is diffuse groundglass opacity throughout the right lung. Airspace d isease in the left lingula has improved and there is now spiculated density adjacent to the lateral w all of the lingula. There is honeycombing within the inferior aspect of the left lingula. There continues to be bilateral effusions, greater on the left than the right. A pleural catheter is looped within the effusion on the left. There is some air within the fluid collection which may have been introduced by the catheter or may relate to empyema. This is not significantly changed in size o r appearance since the previous exam. The heart is not enlarged. There is pleural thickening or pleural fluid present measuring approximate ly 9 mm anteriorly. There is coronary artery calcification. There is aorta is prominent measuring 3.8 cm. The proximal arch is aneurysmal measuring 3.7 cm. The distal arch is aneurysmal measuring 3.5 cm . At the level of the aortic hiatus, the aorta is ectatic measuring 3 cm. There is hypertrophic spondylosis within the spine. There is abnormal soft tissue adjacent to the left kidney. Although this may represent unopacified nolan wel a renal mass is not excluded. This was present on the previous study.. IMPRESSION: 1. No change in the appearance of the patient's loculated left-sided effusion. 2. Bilateral airspace disease has improved on the left. 4. Pleural thickening or fluid of approximately 9 mm. 5. Thoracic aortic aneurysm. 6. Abnormal appearance of the left kidney. A dedicated CT scan of the abdomen and pelvis would BE sug gested.
--- NOTE | 2018-11-04 13:26 | P.GSCN ---
History of Present Illness Consult date: 11/04/18 Reason for Consult: Pleurx catheter management. Requesting physician: Darwin Aguilera History of present illness: This is a 63-year-old gentleman who is followed by Dr. Jp ruvalcaba on an outpatient basis. He has a past medical history significant for multiple myeloma which was diagnosed in 2009, history of bone marrow transplant, history of nicotine dependence quit in June 2008, chronic obstructive pulmonary d isease, history of myocardial infarction, gastroesophageal reflux disease, coronary artery disease, hypertension and hyperlipidemia. He was recently diagnosed with a left upper lobe nodule that was thought to be malignant. Subsequently he underwent an extensive workup and underwent a biopsy of his left upper nodule which came back negative for malignancy. He developed a left-sided pleural effusion which was consistent with an empyema and was referred to [facility] where he underwent a video-assisted thoracoscopic procedure with decortication and Pleurx catheter placement. He remains with the Pleurx catheter in place to his left chest. He presented to the emergency department here at [facility] on 11/01/2018 with complaints of generalized weakness, fatigue and shortness of breath. He denies any complaints of fever, chills, nausea, vomiting, diarrhea or pain. The patient reports that his Pleurx catheter has been drained once or twice a week at home with only about 50 mL of fluid drained with each drainage. On presentation to the hospital a chest x-ray was completed which showed some increasethe right lung base compared to his previous exam. A CTA of his chest was completed which demonstrated improved aeration of the left lung compared to his previous study with a pleural catheter present. A small left pleural effusion with some areas of loculated pleural effusion. Suspected pneumonia on the right. It also demonstrated suspected metastatic bone disease. His initial lab results showed a WBC count of 3.2, Hgb 8.8, platelet count of 9, BUN 14, creatinine 0.64 and a BNP of 7470. Due to the patient's history of Pleurx catheter a consult was placed to Dr. Shari Wise from cardiothoracic surgery for further evaluation and treatment recomme ndations. Review of Systems A 14 point review of systems was completed and was negative except as mentioned in HPI. Past Medical History Past Medical History: Coronary Artery Disease (CAD), Cancer, COPD, GERD/Reflux, Hyperlipidemia, Hypertension, Myocardial Infarction (MS), Pneumonia Additional Past Medical History / Comment(s): Pt recently admitted 10/24/18 to [facility] with R upper lobe pneumonia. Other HX: 2010 diagnosed with multiple myeloma-tx with chemo in 2009 and in 2010 had stem cell transplant, recently found L hilar mass-has had it biopsied-negative, severe thrombocytopenia, pancytopenia, MRI at [facility] 09/11/18 showed bone lesions/L femoral neck lesion-being tx with radiation, recent L pleural effusion/empyema-had decortication L lung at [facility] and has L pleurx cath in place, pt states he is on HTN med and cholesterol medications since his MIs prophylactically, gastric ulcer years ago, low back pain, neuropathy bilateral legs/feet since chemo for multiple myeloma treated, sinus problems. Last Myocardial Infarction Date:: 01/09/14, FEB 2005 History of Any Multi-Drug Resistant Organisms: None Reported Past Surgical History: Heart Catheterization, Heart Catheterization With Stent Additional Past Surgical History / Comment(s): 2011 Stem cell transplant, multiple bone marrow bxs, 08/08/18 and 08/16/18 bronchoscopies/biopsies/needle aspiration, EGD/colonoscopy, [facility]-L lung decortication and has left Pleurx catheter drainage system in place Past Anesthesia/Blood Transfusion Reactions: No Reported Reaction Additional Past Anesthesia/Blood Transfusion Reaction / Comm: Pt states he received blood in past without reaction. Date of Last Stent Placement:: 01/09/14 Additional Psychological History / Comment(s): Patient was a smoker one pack per day for 40 years and quit in June of this year. He denies any marijuana, street drug or alcohol use. He lives at home with his and dog. 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 No service and no recent travel. Smoking Status: Former smoker - Past Family History Father Family Medical History: Cancer Additional Family Medical History / Comment(s): LUNG CA Son(s) Family Medical History: Cancer Additional Family Medical History / Comment(s): BLADDER CA Mother Family Medical History: No Reported History Additional Family Medical History / Comment(s): Mother is healthy and is 86yrs old. Medications and Allergies Home Medications Medication Instructions Recorded Confirmed Type Gabapentin [Neurontin] 600 mg PO TID 01/08/14 11/01/18 History Atorvastatin [Lipitor] 40 mg PO AC-LUNCH 03/24/14 11/01/18 History Acyclovir [Zovirax] 400 mg PO BID 08/06/18 11/01/18 History oxyCODONE-APAP 10-325MG [Percocet 1 tab PO Q4H PRN 08/22/18 11/01/18 History 10-325 mg] Famotidine 20 mg PO HS 10/05/18 11/01/18 History Ondansetron [Zofran] 4 mg PO Q12HR PRN 10/18/18 11/01/18 History Folic Acid 1 mg PO DAILY@1200 #30 tab 10/29/18 11/01/18 Rx Loperamide [Imodium] 2 mg PO QID PRN #20 capsule 10/29/18 11/01/18 Rx Ammonium Lactate Lotion 1 applic TOPICAL BID applic 10/30/18 11/01/18 Rx [Lac-Hydrin 12% Lotion] Moxifloxacin HCl 400 mg PO DAILY #7 tab 10/30/18 11/01/18 Rx Triamcinolone 0.1% Ointment 1 applic TOPICAL BID applic 10/30/18 11/01/18 Rx [Kenalog 0.1% Ointment] Multivitamins, Thera [Multivitamin 1 tab PO DAILY@1200 11/01/18 11/01/18 History (formulary)] Allergies Allergy/AdvReac Type Severity Reaction Status Date / Time No Known Allergies Allergy Verified 11/01/18 03:11 Surgical - Exam Vital Signs Temp Pulse Resp BP Pulse Ox 98.4 F 104 H 24 119/68 97 11/01/18 03:06 11/01/18 03:06 11/01/18 03:06 11/01/18 03:06 11/01/18 03:06 - General well nourished, no distress, no pain, chronically ill - Eyes PERRL, normal ocular movement - ENT normal pinna, normal nares, normal mucosa, no hearing loss, no congestion - Neck Neck is supple, no lymphadenopathy. no masses, no bruits, trachea midline, no venous distension - Respiratory Lung sounds are diminished to his bilateral bases. Respirations are symmetrical and nonlabored. Oxygen saturation are 93% on 10 L high flow nasal cannula. Achieving 1250 mL on his incentive spirometry. Left Pleurx catheter in place and capped. - Cardiovascular Regular rhythm and rate. S1 and S2 present, negative for S3, gallop or murmur. Generalized +1 edema. - Abdomen Abdomen is soft, nontender and nondistended. Active bowel sounds all 4 abdominal quadrants. No guarding or rigidity. No organomegaly. - Genitourinary Deferred - Rectum Deferred - Integumentary Generalized erythema to his upper and lower extremities with extensive petechiae and ecchymosis. - Neurologic normal coordination, normal sensation - Musculoskeletal Generalized weakness, strength is equal bilaterally. - Psychiatric oriented to time, oriented to person, oriented to place, speech is normal, memory intact Results - Labs 11/04/18 08:12 11/04/18 08:12 Abnormal Lab Results - Last 24 Hours (Table) 11/01/18 11/03/18 11/03/18 Range/Units 16:03 17:31 20:23 WBC (3.8-10.6) k/uL RBC (4.30-5.90) m/uL Hgb (13.0-17.5) gm/dL Hct (39.0-53.0) % RDW (11.5-15.5) % Plt Count (150-450) k/uL Neutrophils # (Manual) (1.3-7.7) k/uL Lymphocytes # (Manual) (1.0-4.8) k/uL Metamyelocytes # (Man) (0) k/uL Nucleated RBCs (0-0) /100 WBC Chloride (98-107) mmol/L Creatinine (0.66-1.25) mg/dL Glucose (74-99) mg/dL POC Glucose (mg/dL) 117 H 218 H (75-99) mg/dL Calcium (8.4-10.2) mg/dL Crossmatch See Detail 11/03/18 11/04/18 11/04/18 Range/Units 21:49 06:52 08:12 WBC 1.1 L* (3.8-10.6) k/uL RBC 2.18 L (4.30-5.90) m/uL Hgb 6.9 L* (13.0-17.5) gm/dL Hct 20.2 L (39.0-53.0) % RDW 20.6 H (11.5-15.5) % Plt Count 12 L* (150-450) k/uL Neutrophils # (Manual) 0.68 L (1.3-7.7) k/uL Lymphocytes # (Manual) 0.37 L (1.0-4.8) k/uL Metamyelocytes # (Man) 0.01 H (0) k/uL Nucleated RBCs 3 H (0-0) /100 WBC Chloride (98-107) mmol/L Creatinine (0.66-1.25) mg/dL Glucose (74-99) mg/dL POC Glucose (mg/dL) 221 H 200 H (75-99) mg/dL Calcium (8.4-10.2) mg/dL Crossmatch 11/04/18 11/04/18 Range/Units 08:12 11:29 WBC (3.8-10.6) k/uL RBC (4.30-5.90) m/uL Hgb (13.0-17.5) gm/dL Hct (39.0-53.0) % RDW (11.5-15.5) % Plt Count (150-450) k/uL Neutrophils # (Manual) (1.3-7.7) k/uL Lymphocytes # (Manual) (1.0-4.8) k/uL Metamyelocytes # (Man) (0) k/uL Nucleated RBCs (0-0) /100 WBC Chloride 112 H (98-107) mmol/L Creatinine 0.65 L (0.66-1.25) mg/dL Glucose 187 H (74-99) mg/dL POC Glucose (mg/dL) 193 H (75-99) mg/dL Calcium 7.8 L (8.4-10.2) mg/dL Crossmatch Microbiology - Last 24 Hours (Table) 11/04/18 03:07 Urine Culture - Preliminary Urine,Voided Diabetes panel 11/04/18 Range/Units 08:12 Sodium 142 (137-145) mmol/L Potassium 3.8 (3.5-5.1) mmol/L Chloride 112 H (98-107) mmol/L Carbon Dioxide 25 (22-30) mmol/L BUN 18 (9-20) mg/dL Creatinine 0.65 L (0.66-1.25) mg/dL Glucose 187 H (74-99) mg/dL Calcium 7.8 L (8.4-10.2) mg/dL Calcium panel 11/04/18 Range/Units 08:12 Calcium 7.8 L (8.4-10.2) mg/dL Pituitary panel 11/04/18 Range/Units 08:12 Sodium 142 (137-145) mmol/L Potassium 3.8 (3.5-5.1) mmol/L Chloride 112 H (98-107) mmol/L Carbon Dioxide 25 (22-30) mmol/L BUN 18 (9-20) mg/dL Creatinine 0.65 L (0.66-1.25) mg/dL Glucose 187 H (74-99) mg/dL Calcium 7.8 L (8.4-10.2) mg/dL Adrenal panel 11/04/18 Range/Units 08:12 Sodium 142 (137-145) mmol/L Potassium 3.8 (3.5-5.1) mmol/L Chloride 112 H (98-107) mmol/L Carbon Dioxide 25 (22-30) mmol/L BUN 18 (9-20) mg/dL Creatinine 0.65 L (0.66-1.25) mg/dL Glucose 187 H (74-99) mg/dL Calcium 7.8 L (8.4-10.2) mg/dL - Imaging Chest x-ray: report reviewed, image reviewed CT scan - chest: report reviewed, image reviewed Assessment and Plan Assessment: 1. Pneumonia 2. Pancytopenia 3. Multiple Myeloma, history of bone marrow transplantation and stem cell transplant in 2010 4. Generalized weakness, anorexia 5. History of left lung empyema without evidence of any malignancy 6. Chronic obstructive pulmonary disease 7. Coronary artery disease with history of previous stent insertion and cardiac catheterization 8. Hyperlipidemia 9. Hypertension 10. Peripheral neuropathy 11. Gastroesophageal reflux disease 12. Chronic back pain Plan: The patient was seen and examined on the third floor medical surgical unit. His chart and diagnostics were reviewed. His case was discussed with Dr. Herb Villagran from cardiothoracic surgery. A computed tomography scan of his chest was ordered to reevaluate his loculated left pleural effusion. Keep Pleurx catheter in place for now. Medical management recommendations per primary care service. Oncology recommendations per Dr. Blankenship and pulmonary recommendations per Dr. Morejon. More recommendations to follow once the patient's computed tomography scan has been reviewed. Thank you Dr. Aguilera for this consult and we will look forward to working with you in the care of your patient. Time with Patient: Greater than 30
[2018-11-04] MEDS: ATORVASTATIN 40 MG TAB PO SCH (13:43)
[2018-11-04] MEDS: MULTIVITAMINS, THERA 1 EACH TAB PO SCH (13:43)
[2018-11-04] MEDS: FOLIC ACID 1 MG TAB PO SCH (15:18)
[2018-11-04 17:11] LABS: Glucose,Whole Blood 198 mg/dL (75-99)
[2018-11-04 20:20] LABS: Glucose,Whole Blood 195 mg/dL (75-99)
--- NOTE | 2018-11-04 21:12 | PN ---
PROGRESS NOTE DATE OF SERVICE: 11/04/2018 This 63-year-old gentleman who was admitted with bilateral pneumonia with possibly gram- negative sepsis also had multiple myeloma. The patient also had a chest CT today which showed loculated left-sided pleural effusion and bilateral airspace disease and pleural thickening and thoracic aortic aneurysm. The patient was seen by multiple consultants. Patient on broad spectrum IV antibiotics. The patient is also being transfused. Patient also had significant thrombocytopenia and anemia also at this time. Patient has severely immunosuppressed with pancytopenia with multiple myeloma. Cardiothoracic surgery is recommended to keep the Pleur-X catheter in place for now. PAST MEDICAL HISTORY: Reviewed. REVIEW OF SYSTEMS: Cardio system: As mentioned earlier. Respiratory: As mentioned earlier. GI no nausea or vomiting. : No dysuria. NERVOUS SYSTEM: No numbness or weakness. CURRENT MEDICATIONS ARE: Reviewed and include: 1. Zovirax 400 mg p.o. b.i.d. 2. DuoNeb q.i.d. and p.r.n. 3. Xanax 0.5 t.i.d. 4. Lipitor 40 mg daily. 5. Pulmicort 1 mg b.i.d. 6. Folic acid 1 mg. 7. Perforomist. 8. Neurontin. 9. NovoLog. 10.Lac-Hydrin. 11.Levaquin 750 p.o. 24 hours. 12.Solu-Medrol. 13.Multivitamins. 14.Zofran. 15.Percocet. 16.Zosyn 3.75 IV q.6h p.r.n. 18.Vitamin B1. 19.Kenalog. PHYSICAL EXAM: Patient is alert, oriented x3. Pulse 64, blood pressure 130/60, respiration 12, temperature 97.2, pulse ox 93% on room air. HEENT: Conjunctivae pale. Oral mucosa moist. NECK is no jugular venous distention. No carotid bruit. No lymph node enlargement. CARDIOVASCULAR SYSTEM: S1, S2 muffled. RESPIRATORY SYSTEM: Breath sounds diminished at the bases. A few scattered rhonchi. Expiratory wheezing also present. ABDOMEN: Soft, obese, nontender. LEGS: Bilateral leg swelling and significant erythema and papular lesions also present. CENTRAL NERVOUS SYSTEM: Diffusely weak. LABS: WBC 1.1, hemoglobin 6.9, platelets 12. Sodium 142, potassium 3.8. ASSESSMENT: 1. Bilateral pneumonia with possibly gram-negative with sepsis present on admission. 2. Multiple myeloma with immunosuppression. 3. Left-sided loculated pleural effusion on Pleur-X drainage. 4. Chronic compression fracture, T7, 8 with radiculopathy. 5. History of coronary artery disease. 6. History of chronic obstructive pulmonary disease. 7. Gastroesophageal reflux disease. 8. Hyperlipidemia. 9. Hypertension. 10.Advanced multiple myeloma with left-sided pleural effusion with PleurX drainage. 11.Peripheral neuropathy from chemotherapy. 12.Pancytopenia due to chemotherapy. 13.NO CODE, NO CPR, NO VENT. RECOMMENDATIONS AND DISCUSSION: In this 63-year-old gentleman who presented with multiple complex medical issues, we will monitor the patient closely. Continue the current medications, management and symptomatic treatment. Otherwise at this time I reviewed chest x-ray and CT scan presently. Otherwise, we will continue to monitor. Continue with antibiotics. Continue with steroids. Otherwise, we will will continue to follow with Infectious Disease and multiple consultants. The prognosis guarded because of multiple complex medical issues. Further recommendations to follow. See orders for details. MMODL / IJN: [id number] / MTDD
[2018-11-05 01:46] LABS: Glucose,Whole Blood 175 mg/dL (75-99)
[2018-11-05] MEDS: methylPREDNISolone SOD SUCCI 125 MG/2 ML VIAL IV SCH ×4 (02:25→17:09)
[2018-11-05] MEDS: PIPERACILLIN-TAZOBACTAM 3.375 GM in SODIUM CHLORIDE 0.9% 100 ML IVPB SCH ×3 (02:25→18:53)
[2018-11-05] MEDS: BUDESONIDE 1 MG/2 ML NEBU INHALATION SCH ×2 (06:59→20:33)
[2018-11-05] MEDS: IPRATROPIUM-ALBUTEROL 3 ML NEB INHALATION SCH ×4 (06:59→20:33)
[2018-11-05] MEDS: FORMOTEROL FUMARATE 20 MCG/2 ML NEBU INHALATION SCH ×2 (06:59→20:33)
[2018-11-05] MEDS ORDERED: LEVOFLOXACIN 750 MG TAB PO SCH (07:00)
[2018-11-05 07:01] LABS: Glucose,Whole Blood 169 mg/dL (75-99)
[2018-11-05] MEDS: PANTOPRAZOLE 40 MG/10 ML VIAL IVP SCH (07:33)
[2018-11-05] MEDS: GABAPENTIN 300 MG CAP PO SCH ×3 (07:34→22:24)
[2018-11-05] MEDS: INSULIN ASPART (NovoLOG) 100 UNIT/ML VIAL SQ SCH ×4 (07:34→22:22)
[2018-11-05] MEDS: ACYCLOVIR 200 MG CAP PO SCH ×2 (07:34→22:20)
[2018-11-05] MEDS: ALPRAZolam 0.5 MG TAB PO PRN ×2 (07:34→19:52)
[2018-11-05] MEDS: TRIAMCINOLONE ACET 0.1% OINTMENT 15 GM TUBE TOPICAL SCH ×2 (07:36→22:22)
[2018-11-05] MEDS: AMMONIUM LACTATE 12% LOTION 225 GM BTL TOPICAL SCH ×2 (07:36→22:22)
[2018-11-05 07:41] LABS: Anisocytosis Moderate; HCT 22.6 % (39.0-53.0); MCH 32.3 pg (25.0-35.0); MCHC 35.5 g/dL (31.0-37.0); MCV 90.8 fL (80.0-100.0); Macrocytosis Slight; Mean Platelet Volume 8.3; Poikilocytosis Slight; RBC 2.49 m/uL (4.30-5.90); RDW 20.1 % (11.5-15.5)
[2018-11-05 07:50] LABS: Platelet Count 10 k/uL (150-450)
[2018-11-05 07:53] LABS: Anion Gap 5 mmol/L; Blood Urea Nitrogen 28 mg/dL (9-20); Calcium 7.9 mg/dL (8.4-10.2); Carbon Dioxide 25 mmol/L (22-30); Chloride 112 mmol/L (98-107); Glucose 144 mg/dL (74-99); Potassium 4.1 mmol/L (3.5-5.1); Sodium 142 mmol/L (137-145)
[2018-11-05 08:52] LABS: Metamyelocytes # (M) 0.02 k/uL (0); Metamyelocytes % 1 %; Monocytes # (M) 0.05 k/uL (0-1.0); Neutrophils % (M) 55 %
[2018-11-05 08:53] LABS: Blast Cells # (M) 0.02 k/uL (0); Nucleated Red Blood Cells 4 /100 WBC (0-0); Plasma Cells % 8 %; Total Cells Counted 200
[2018-11-05 08:54] LABS: Lymphocytes # (M) 0.51 k/uL (1.0-4.8); Neutrophils # (M) 0.83 k/uL (1.3-7.7); Plasma Cells # (M) 0.12 k/uL (0); WBC 1.5 k/uL (3.8-10.6)
[2018-11-05 08:56] LABS: Polychromasia Present
[2018-11-05] MEDS: THIAMINE 100 MG TAB PO SCH (10:25)
[2018-11-05] MEDS: oxyCODONE-APAP 10-325MG 1 EACH TAB PO PRN ×4 (10:25→22:20)
[2018-11-05] MEDS: FOLIC ACID 1 MG TAB PO SCH (10:25)
[2018-11-05 11:17] LABS: Glucose,Whole Blood 173 mg/dL (75-99)
[2018-11-05] MEDS: FLUCONAZOLE IN NACL,ISO-OSM 200 MG in SALINE 1 100ML.BAG IVPB SCH (13:29)
--- NOTE | 2018-11-05 13:55 | P.PN ---
Subjective Progress Note Date: 11/05/18 Principal diagnosis: Multilobar pneumonia This is a very pleasant 63-year-old male patient who follows with Dr. Coelho as his primary care physician. The patient has history of multiple myeloma of a nonsecretory type that was diagnosed in 2009. The patient has been receiving t reatment under the care of Dr. Reynolds and after 4 sessions of Velcade and Decadron the patient's underwent an autologous stem cell transplantation in 2010 and the patient remains stable 2013. A repeat bone marrow biopsy that was done on 11/02/2079 showed 60% plasma cells with normal cytogenetics and the fish positive for translocation 11 ,14. The patient was treated with a combination of Revlimid and dexamethasone and Ixazomib. Following that, the treatment was held in general 2019 due to severe pancytopenia. Since then the patient has been having several pulmonary complications most significant of which was an empyema the developed in the left lung. After being treated in our facility the patient was transferred to [facility] where he underwent a thoracoscopic decortication and the Pleurx catheter insertion and the patient was transferred back to [facility] for further care. At this point in time the Pleurx catheter is in place and the patient is having some limited drainage around 20-30 mL of output every other day. The patient me was also receiving radiation therapy to the left femur due to ongoing pain in that area. He was just discharged here from another admission for an acute right upper lobe pneumonia and pancytopenia on 10/30/2018. He presented here again early this morning with complaints of increasing shortness of breath and back pain. Chest x-ray showed some increasing opacity in the right lung base compared to previous of 10/29/2018. CT angiogram was limited by artifact but there were no large saddle embolus. There is improved aeration of the left lung compared to previous CT of 08/31/2018. Pleural catheter remains in place. Small left pleural effusion. Some areas of loculated pleural fluid as on previous. There is a small right pleural effusion and suspected atelectasis and left lung and suspected pneumonia on the right. Probable decrease in size of the left lung mass. There was noted increased density left greater than right possibly hemorrhage versus metastatic involvement. There is metastatic bone disease and new compression deformities in the spine compared to previous, suspect pathologic fractures. He is seen today in consultation on the regular medical floor. He is currently awake and alert in no acute distress. Resting fairly comfortably in bed. He is maintained on Percocet for pain control. Maintaining O2 saturations in the mid 90s on 5 L/m per nasal cannula. Currently afebrile. Hemodynamically stable. White count 3.2. Hemoglobin 8.8. Platelet count is pending. Sodium 140. Potassium 3.8. Bicarb 18. Creatinine 0.64. Troponin negative 1. He has been initiated on Zosyn and Levaquin. The patient is seen today 11/02/2018 in follow-up on the regular medical floor. He is awake and alert in no acute distress. He continues with a loose nonproductive cough. No fever or chills. Currently afebrile. Maintaining O2 saturations in the 90s on 4 L or minute per nasal cannula. He is still quite weak. Yesterday he did require 1 unit of packed red blood cells for hemoglobin of 6.4. One unit of platelets for platelet count of 6000. Today's hemoglobin 8.3. Platelets 19,000. White count 2.9. He has been seen by infectious disease and remains on Zosyn and Levaquin. On 11/05/2017 patient seen in follow-up on medical surgical floor. He is resting in bed, appears quite fatigued, weak, with labored respirations. Is on high flow oxygen, currently at 8 L, and his pulse ox is 92%, afebrile, sputum culture showed Perlita albicans, blood urine cultures were negative, stool culture has been sent, and is pending at this time, pleural fluid from the previous admission draining from the Pleurx catheter showed oxacillin sensitive Staphylococcus aureus, patient is on a combination of Zosyn and Levaquin, CT surgery has been consulted for the Pleurx catheter management. His blood work has been reviewed, there is slight improvement in patient's white blood cell count up to 1.5, hemoglobin is 8.0, platelet count is 10, serum sodium is 142, potassium is 4.1, chloride is 112, B1 is 20, creatinine 0.73. A chest x-ray shows worsening interstitial and airspace disease on the right, and worsening lower lobe airspace disease on the left. Last time patient's left-sided proximal catheter was draining was back on the 11/03/2018 with drainage of 30 mL of fluid. Hematology is following in regards to patient's multiple myeloma, and the patient has been transfused with total of 3 units of red blood cells and 4 units of platelets. Recently overall his condition seems to be declining, kimberley rodriguez is quite weak, debilitated, he's developed increasing upper and lower extremity edema, patient seems to not even have the strength to sit up in bed, is quite depressed, and he states he is about ready to give up. Objective - Vital Signs Vital signs: Vital Signs Temp 97.9 F 11/05/18 05:00 Pulse 80 11/05/18 11:08 Resp 20 11/05/18 07:30 BP 143/77 11/05/18 05:00 Pulse Ox 92 L 11/05/18 06:59 Intake & Output 11/04/18 11/05/18 11/05/18 18:59 06:59 18:59 Intake Total 760 403 Balance 760 403 Intake: Intake, IV Titration 250 100 Amount Levofloxacin 750Mg-D5w 150 Pmx 750 mg In Dextrose/ Water 1 150ml.bag @ 100 mls/hr IVPB Q24H [facility] Rx#: [id number] Piperacillin-Tazobactam 3 100 100 .375 gm In Sodium Chloride 0.9% 100 ml @ 25 mls/hr IVPB Q8HR [facility] Rx# :[id number] Oral 200 100 Blood Product 310 203 Platelet Irr Pheresis 0 203 Acda1 Unit [id number] Rc Irr As1 Unit 310 [id number] Other: Voiding Method Urinal Urinal Urinal Diaper Incontinent # Voids 2 1 - Exam GENERAL EXAM: Lethargic, but arousable 63-year-old white male, on 8 L per high flow nasal cannula with a pulse ox of 92%, quite weak, debilitated, with shallow respirations HEAD: Normocephalic/atraumatic. EYES: Normal reaction of pupils, equal size. Conjunctiva pink, sclera white. NOSE: Clear with pink turbinates. THROAT: No erythema or exudates. NECK: No masses, no JVD, no thyroid enlargement, no adenopathy. CHEST: No chest wall deformity. Symmetrical expansion. Left which Pleurx catheters covered with dressing CVS: Regular rate and rhythm, normal S1 and S2, no gallops, no murmurs, no rubs ABDOMEN: Soft, nontender. No hepatosplenomegaly, normal bowel sounds, no guarding or rigidity. EXTREMITIES: No clubbing, upper and lower extremity edema, no cyanosis, 2+ pulses and upper and lower extremities. MUSCULOSKELETAL: Muscle strength and tone normal. SPINE: No scoliosis or deformity SKIN: No rashes CENTRAL NERVOUS SYSTEM: Alert and oriented -3. No focal deficits, tone is normal in all 4 extremities. PSYCHIATRIC: Alert and oriented -3. Appropriate affect. Intact judgment and insight. - Labs CBC & Chem 7: 11/05/18 07:30 11/05/18 07:30 Labs: Abnormal Lab Results - Last 24 Hours (Table) 11/01/18 11/04/18 11/04/18 Range/Units 16:03 17:10 20:18 WBC (3.8-10.6) k/uL RBC (4.30-5.90) m/uL Hgb (13.0-17.5) gm/dL Hct (39.0-53.0) % RDW (11.5-15.5) % Plt Count (150-450) k/uL Blast Cells % % Neutrophils # (Manual) (1.3-7.7) k/uL Lymphocytes # (Manual) (1.0-4.8) k/uL Metamyelocytes # (Man) (0) k/uL Blast Cells # (Man) (0) k/uL Plasma Cell # (Manual) (0) k/uL Nucleated RBCs (0-0) /100 WBC Chloride (98-107) mmol/L BUN (9-20) mg/dL Glucose (74-99) mg/dL POC Glucose (mg/dL) 198 H 195 H (75-99) mg/dL Calcium (8.4-10.2) mg/dL Crossmatch See Detail 11/05/18 11/05/18 11/05/18 Range/Units 01:45 06:59 07:30 WBC 1.5 L (3.8-10.6) k/uL RBC 2.49 L (4.30-5.90) m/uL Hgb 8.0 L (13.0-17.5) gm/dL Hct 22.6 L (39.0-53.0) % RDW 20.1 H (11.5-15.5) % Plt Count 10 L* (150-450) k/uL Blast Cells % 1 H* % Neutrophils # (Manual) 0.83 L (1.3-7.7) k/uL Lymphocytes # (Manual) 0.51 L (1.0-4.8) k/uL Metamyelocytes # (Man) 0.02 H (0) k/uL Blast Cells # (Man) 0.02 H (0) k/uL Plasma Cell # (Manual) 0.12 H (0) k/uL Nucleated RBCs 4 H (0-0) /100 WBC Chloride (98-107) mmol/L BUN (9-20) mg/dL Glucose (74-99) mg/dL POC Glucose (mg/dL) 175 H 169 H (75-99) mg/dL Calcium (8.4-10.2) mg/dL Crossmatch 11/05/18 11/05/18 Range/Units 07:30 11:08 WBC (3.8-10.6) k/uL RBC (4.30-5.90) m/uL Hgb (13.0-17.5) gm/dL Hct (39.0-53.0) % RDW (11.5-15.5) % Plt Count (150-450) k/uL Blast Cells % % Neutrophils # (Manual) (1.3-7.7) k/uL Lymphocytes # (Manual) (1.0-4.8) k/uL Metamyelocytes # (Man) (0) k/uL Blast Cells # (Man) (0) k/uL Plasma Cell # (Manual) (0) k/uL Nucleated RBCs (0-0) /100 WBC Chloride 112 H (98-107) mmol/L BUN 28 H (9-20) mg/dL Glucose 144 H (74-99) mg/dL POC Glucose (mg/dL) 173 H (75-99) mg/dL Calcium 7.9 L (8.4-10.2) mg/dL Crossmatch Microbiology - Last 24 Hours (Table) 11/04/18 03:07 Urine Culture - Final Urine,Voided 11/04/18 03:30 Stool Culture - Preliminary Stool 11/03/18 15:10 Blood Culture - Preliminary Blood No Growth after 24 hours 11/02/18 07:15 Gram Stain - Final Sputum Sputum Culture - Final Perlita albicans Assessment and Plan Plan: Assessment: #1 Acute hypoxemic respiratory failure secondary to increasing right lung opacity/pneumonia as well as involvement of the both the right lower and mid lobes. In addition there is some limited infiltration of the left midlung and chronic consolidation of left lower lobe, a residual of a previous empyema and the patient is a Pleurx catheter in place with some ongoing drainage which has dropped significantly over this past few weeks. The patient is immunocompromised. Cultures obtained from the pleural fluid was different from the left-sided Pleurx catheter on 10/29/2018 were positive for oxacillin sensitive Staphylococcus aureus #2 Pancytopenia, a complication of multiple myeloma. Status post 1 unit of packed red blood cells and 1 dose of platelets. #3 History of a spontaneous perirenal hemorrhage along the left anterior perirenal space extending to the left kidney and left renal vein. #4 History of multiple myeloma post bone marrow transplantation #5 Generalized weakness, anorexia and ongoing constitutional symptoms and weight loss, secondary to above #6 Left lung empyema without evidence of any malignancy. The patient is undergone thoracotomy with decortication and the cultures of been negative and the patient has a Pleurx catheter in place output of which is minimal at this point in time #7 Coronary artery disease with previous coronary stent insertion and cardiac catheterization, currently free of any chest pain #8 COPD #9 Hypertension #10 Hyperlipidemia #11 Known history of coronary artery disease #12 Previous history of bone marrow transplantation and the patient undergone stem cell transplant in 2010 #13 Chronic back pain and myeloma related lytic lesions throughout the skeletal system, possible new pathologic fractures. #14 Peripheral neuropathy #15 Peptic ulcer disease #16 Hip pain completed radiation therapy Plan: Continue with supportive treatment, patient is on appropriate antibiotics, chest x-ray has been reviewed, CT surgery has been consulted for management of the Pleurx catheter. Afebrile, but patient seems to be severely debilitated, weak and seems to be declining overall. He is on high flow oxygen, he is lethargic, has poor appetite. Overall prognosis is quite poor in view of his immunocompromise state, Persistent pancytopenia, and recurrent pneumonias. Remains a DO NOT RESUSCITATE. We'll continue with supportive treatment. I performed a history & physical examination of the patient and discussed their management with my nurse practitioner, Ladonna Jain. I reviewed the nurse practitioner's note and agree with the documented findings and plan of care. Lung sounds are positive for diminished breath sounds. The findings and the impression was discussed with the patient. I attest to the documentation by the nurse practitioner. Time with Patient: Less than 30
--- NOTE | 2018-11-05 15:18 | P.PN ---
Subjective Progress Note Date: 11/05/18 Principal diagnosis: Pneumonia, pancytopenia, past medical history of multiple myeloma, history of bone marrow transplantation and some cell transplant in 2010, generalized weakness and anorexia, history of left lung empyema without evidence of any malignancy, chronic obstructive pulmonary disease, hyperlipidemia, hypertension, peripheral neuropathy, gastroesophageal reflux disease, and chronic back pain. The patient is currently laying in bed on the 4 N. medical surgical unit. He is in no acute distress. Reports that his pain is well controlled and denies any complaints of shortness of breath this time. Continues to be on high flow nasal cannula of 8 L/m with oxygen saturations 92%. Achieving 1250 mL on his incentive spirometry. His Pleurx catheter was last drained on 11/03/2018 with around 40 mL of fluid drained. A computed tomography scan of his chest was co mpleted yesterday to evaluate his left pleural effusion post catheter drainage. The computed tomography scan of the chest report shows no change in the appearance of his loculated left-sided effusion. He is complaining of continued generalized weakness. Objective - Vital Signs Vital signs: Vital Signs Temp 97.8 F 11/05/18 12:24 Pulse 79 11/05/18 12:24 Resp 20 11/05/18 12:24 BP 125/78 11/05/18 12:24 Pulse Ox 90 L 11/05/18 12:24 Intake & Output 11/04/18 11/05/18 11/05/18 18:59 06:59 18:59 Intake Total 760 403 Balance 760 403 Intake: Intake, IV Titration 250 100 Amount Levofloxacin 750Mg-D5w 150 Pmx 750 mg In Dextrose/ Water 1 150ml.bag @ 100 mls/hr IVPB Q24H [facility] Rx#: [id number] Piperacillin-Tazobactam 3 100 100 .375 gm In Sodium Chloride 0.9% 100 ml @ 25 mls/hr IVPB Q8HR [facility] Rx# :[id number] Oral 200 100 Blood Product 310 203 Platelet Irr Pheresis 0 203 Acda1 Unit [id number] Rc Irr As1 Unit 310 [id number] Other: Voiding Method Urinal Urinal Urinal Diaper Incontinent # Voids 2 1 - Constitutional General appearance: Present: cooperative, no acute distress - Respiratory Details: Lung sounds diminished to his bilateral bases left greater than right. Respirations are symmetrical and nonlabored. Oxygen saturation is 92% on 8 L high flow nasal cannula. Achieving 1250 mL on his incentive spirometry. Left chest Pleurx catheter in place with dressing dry and intact. - Cardiovascular Details: Regular rhythm and rate. S1 and S2 present, negative for S3, gallop or murmur. +1 generalized edema. - Gastrointestinal Gastrointestinal Comment(s): Abdomen is soft, nontender and nondistended. Hypoactive bowel sounds all 4 abdominal quadrants. No guarding or rigidity. No organomegaly. - Genitourinary Genitourinary Comment(s): Voiding clear vane urine with episodes of incontinence. - Integumentary Integumentary Comment(s): Generalized erythema to his upper and lower extremities with extensive petechiae and ecchymosis. - Neurologic Neurologic: Present: CNII-XII intact - Musculoskeletal Musculoskeletal: Present: generalized weakness, strength equal bilaterally - Psychiatric Psychiatric: Present: A&O x's 3, appropriate affect, intact judgment & insight - Allied health notes Allied health notes reviewed: nursing - Labs CBC & Chem 7: 11/05/18 07:30 11/05/18 07:30 Labs: Abnormal Lab Results - Last 24 Hours (Table) 11/01/18 11/04/18 11/04/18 Range/Units 16:03 17:10 20:18 WBC (3.8-10.6) k/uL RBC (4.30-5.90) m/uL Hgb (13.0-17.5) gm/dL Hct (39.0-53.0) % RDW (11.5-15.5) % Plt Count (150-450) k/uL Blast Cells % % Neutrophils # (Manual) (1.3-7.7) k/uL Lymphocytes # (Manual) (1.0-4.8) k/uL Metamyelocytes # (Man) (0) k/uL Blast Cells # (Man) (0) k/uL Plasma Cell # (Manual) (0) k/uL Nucleated RBCs (0-0) /100 WBC Chloride (98-107) mmol/L BUN (9-20) mg/dL Glucose (74-99) mg/dL POC Glucose (mg/dL) 198 H 195 H (75-99) mg/dL Calcium (8.4-10.2) mg/dL Crossmatch See Detail 11/05/18 11/05/18 11/05/18 Range/Units 01:45 06:59 07:30 WBC 1.5 L (3.8-10.6) k/uL RBC 2.49 L (4.30-5.90) m/uL Hgb 8.0 L (13.0-17.5) gm/dL Hct 22.6 L (39.0-53.0) % RDW 20.1 H (11.5-15.5) % Plt Count 10 L* (150-450) k/uL Blast Cells % 1 H* % Neutrophils # (Manual) 0.83 L (1.3-7.7) k/uL Lymphocytes # (Manual) 0.51 L (1.0-4.8) k/uL Metamyelocytes # (Man) 0.02 H (0) k/uL Blast Cells # (Man) 0.02 H (0) k/uL Plasma Cell # (Manual) 0.12 H (0) k/uL Nucleated RBCs 4 H (0-0) /100 WBC Chloride (98-107) mmol/L BUN (9-20) mg/dL Glucose (74-99) mg/dL POC Glucose (mg/dL) 175 H 169 H (75-99) mg/dL Calcium (8.4-10.2) mg/dL Crossmatch 11/05/18 11/05/18 Range/Units 07:30 11:08 WBC (3.8-10.6) k/uL RBC (4.30-5.90) m/uL Hgb (13.0-17.5) gm/dL Hct (39.0-53.0) % RDW (11.5-15.5) % Plt Count (150-450) k/uL Blast Cells % % Neutrophils # (Manual) (1.3-7.7) k/uL Lymphocytes # (Manual) (1.0-4.8) k/uL Metamyelocytes # (Man) (0) k/uL Blast Cells # (Man) (0) k/uL Plasma Cell # (Manual) (0) k/uL Nucleated RBCs (0-0) /100 WBC Chloride 112 H (98-107) mmol/L BUN 28 H (9-20) mg/dL Glucose 144 H (74-99) mg/dL POC Glucose (mg/dL) 173 H (75-99) mg/dL Calcium 7.9 L (8.4-10.2) mg/dL Crossmatch Microbiology - Last 24 Hours (Table) 11/04/18 03:07 Urine Culture - Final Urine,Voided 11/04/18 03:30 Stool Culture - Preliminary Stool 11/03/18 15:10 Blood Culture - Preliminary Blood No Growth after 24 hours 11/02/18 07:15 Gram Stain - Final Sputum Sputum Culture - Final Perlita albicans - Imaging and Cardiology CT scan - chest: report reviewed, image reviewed Assessment and Plan Assessment: 1. Pneumonia 2. Pancytopenia 3. Multiple Myeloma, history of bone marrow transplantation and stem cell transplant in 2010 4. Generalized weakness, anorexia 5. History of left lung empyema without evidence of any malignancy 6. Chronic obstructive pulmonary disease 7. Coronary artery disease with history of previous stent insertion and cardiac catheterization 8. Hyperlipidemia 9. Hypertension 10. Peripheral neuropathy 11. Gastroesophageal reflux disease 12. Chronic back pain Plan: 1. Computed tomography scan of his chest results reviewed by Dr. Shari Wise. Consideration for alteplase through the Pleurx catheter although due to the patient's pancytopenia, recommendations are to hold off until his pancytopenia has improved. 2. Encourage use of his incentive spirometry every hour while awake. 3. Wean oxygen as tolerated. Pulmonary recommendations per pulmonology. 4. GI and DVT prophylaxis. 5. More recommendations to follow based on patient's clinical course. Time with Patient: Less than 30
--- NOTE | 2018-11-05 16:20 | P.PN ---
Subjective Progress Note Date: 11/05/18 Principal diagnosis: Pancytopenia and Multipple Myeloma He is a little disoriented today although alert to person and place. Still with epistaxis intermittent Objective - Vital Signs Vital signs: Vital Signs Temp 97.8 F 11/05/18 12:24 Pulse 79 11/05/18 12:24 Resp 20 11/05/18 12:24 BP 125/78 11/05/18 12:24 Pulse Ox 90 L 11/05/18 12:24 Intake & Output 11/04/18 11/05/18 11/05/18 18:59 06:59 18:59 Intake Total 760 403 Balance 760 403 Intake: Intake, IV Titration 250 100 Amount Levofloxacin 750Mg-D5w 150 Pmx 750 mg In Dextrose/ Water 1 150ml.bag @ 100 mls/hr IVPB Q24H [facility] Rx#: [id number] Piperacillin-Tazobactam 3 100 100 .375 gm In Sodium Chloride 0.9% 100 ml @ 25 mls/hr IVPB Q8HR [facility] Rx# :[id number] Oral 200 100 Blood Product 310 203 Platelet Irr Pheresis 0 203 Acda1 Unit [id number] Rc Irr As1 Unit 310 [id number] Other: Voiding Method Urinal Urinal Urinal Diaper Incontinent # Voids 2 1 2 # Bowel Movements 1 - Exam - Constitutional General appearance: Present: cooperative, no acute distress, thin - EENT Eyes: Present: anicteric sclerae, EOMI ENT: Present: hearing grossly normal - Respiratory Details: Respirations even and unlabored - Cardiovascular Rhythm: regular - Peripheral edema leg Bilateral edema with extensive petechaie and and confluen eccymosis. - Gastrointestinal General gastrointestinal: Present: soft - Integumentary Integumentary: Present: pale - Neurologic Neurologic: Present: CNII-XII intact - Musculoskeletal Musculoskeletal: Present: generalized weakness, strength equal bilaterally - Psychiatric Psychiatric: Present: A&O x's 3, appropriate affect, intact judgment & insight - Labs CBC & Chem 7: 11/05/18 07:30 11/05/18 07:30 Labs: Abnormal Lab Results - Last 24 Hours (Table) 11/01/18 11/04/18 11/04/18 Range/Units 16:03 17:10 20:18 WBC (3.8-10.6) k/uL RBC (4.30-5.90) m/uL Hgb (13.0-17.5) gm/dL Hct (39.0-53.0) % RDW (11.5-15.5) % Plt Count (150-450) k/uL Blast Cells % % Neutrophils # (Manual) (1.3-7.7) k/uL Lymphocytes # (Manual) (1.0-4.8) k/uL Metamyelocytes # (Man) (0) k/uL Blast Cells # (Man) (0) k/uL Plasma Cell # (Manual) (0) k/uL Nucleated RBCs (0-0) /100 WBC Chloride (98-107) mmol/L BUN (9-20) mg/dL Glucose (74-99) mg/dL POC Glucose (mg/dL) 198 H 195 H (75-99) mg/dL Calcium (8.4-10.2) mg/dL Crossmatch See Detail 11/05/18 11/05/18 11/05/18 Range/Units 01:45 06:59 07:30 WBC 1.5 L (3.8-10.6) k/uL RBC 2.49 L (4.30-5.90) m/uL Hgb 8.0 L (13.0-17.5) gm/dL Hct 22.6 L (39.0-53.0) % RDW 20.1 H (11.5-15.5) % Plt Count 10 L* (150-450) k/uL Blast Cells % 1 H* % Neutrophils # (Manual) 0.83 L (1.3-7.7) k/uL Lymphocytes # (Manual) 0.51 L (1.0-4.8) k/uL Metamyelocytes # (Man) 0.02 H (0) k/uL Blast Cells # (Man) 0.02 H (0) k/uL Plasma Cell # (Manual) 0.12 H (0) k/uL Nucleated RBCs 4 H (0-0) /100 WBC Chloride (98-107) mmol/L BUN (9-20) mg/dL Glucose (74-99) mg/dL POC Glucose (mg/dL) 175 H 169 H (75-99) mg/dL Calcium (8.4-10.2) mg/dL Crossmatch 11/05/18 11/05/18 Range/Units 07:30 11:08 WBC (3.8-10.6) k/uL RBC (4.30-5.90) m/uL Hgb (13.0-17.5) gm/dL Hct (39.0-53.0) % RDW (11.5-15.5) % Plt Count (150-450) k/uL Blast Cells % % Neutrophils # (Manual) (1.3-7.7) k/uL Lymphocytes # (Manual) (1.0-4.8) k/uL Metamyelocytes # (Man) (0) k/uL Blast Cells # (Man) (0) k/uL Plasma Cell # (Manual) (0) k/uL Nucleated RBCs (0-0) /100 WBC Chloride 112 H (98-107) mmol/L BUN 28 H (9-20) mg/dL Glucose 144 H (74-99) mg/dL POC Glucose (mg/dL) 173 H (75-99) mg/dL Calcium 7.9 L (8.4-10.2) mg/dL Crossmatch Microbiology - Last 24 Hours (Table) 11/04/18 03:07 Urine Culture - Final Urine,Voided 11/04/18 03:30 Stool Culture - Preliminary Stool 11/03/18 15:10 Blood Culture - Preliminary Blood No Growth after 24 hours 11/02/18 07:15 Gram Stain - Final Sputum Sputum Culture - Final Perlita albicans Assessment and Plan Plan: Multiple Myeloma: - Details per HPI - Treatment currently on hold for pancytopenia, recent progression of disease and prolonged hospital stay for decortication and empyema - Will order restaging blood work today for baseline - I have discussed in detail with his primary oncologist Dr. Reynolds, will order Next Line Treatment with Darzalex/Pomalyst/Dexamethasone - A 4 day bolus dexamethasone while inpatient considered This will act as a treatment dose against myeloma. - Dr. Blankenship had long discussion with patient regarding his current condition and if it does not improve or continues to deteriorate, then less likely a candidate for specific myeloma therapy with a realistic chance of benefit. In that situation comfort care is reasonable. Pancytopenia: Secondary to Malignancy and Chemotherapy - Continue to monitor CBC - Transfusion support PRN, Hgb less than 7, PLatelets less than 10 - ALL IRRADIATED BLOOD PRODUCTS - Status Post Platlet Transfusion awaing post CBC - G-CSF - if Neuts less than 1 Acute on Chronic Respiratory Failure - - progressing - Pulm following - Antibiotics for possible Pneumonia Pneumonia: - new Right Pneumonia, versus his prior episodes affecting left lung. Constipation: Improved - Recent increase in narcotics - Recent decrease in activity related to Left femoral head lesion and prolonged hospital stay for pulmonary infection Nausea & vomiting - Improved - Antiemetics PRN - Marinol as an appetite stimulants ordered, improved today, no episodes of vomiting. - Continue Marinol at discharge Left Lung Empyema and Persistent Infection: - Persistent left lung infection, questionable mass, empyema. - Patient has had multiple hospitalizations and complications due to this left lung mass/infection, empyema, recurrent effusion. T - Pleurex in place and pulmonary and Cardiothorax is following - This is persistent and still requiring workup. Concern was that performing any type of diagnostic workup could be complicated by infection. - Continue treatment per IM and Pulmonary for now. PLan: - Transfusion Support - Daily CBC - Patient has progressively showed to have worsened over the past two days with hemotysis, check fibrinogen - Will rediscuss goals of care and comfort care again with patient and son in am. - Overall prognosis gaurded to poor Huyen DAVID
[2018-11-05] MEDS: ATORVASTATIN 40 MG TAB PO SCH (17:02)
[2018-11-05] MEDS: MULTIVITAMINS, THERA 1 EACH TAB PO SCH (17:02)
[2018-11-05 17:03] LABS: Glucose,Whole Blood 234 mg/dL (75-99)
--- NOTE | 2018-11-05 17:52 | P.PN ---
Subjective Progress Note Date: 11/05/18 This is a 63-year-old male with history of multiple myeloma of a nonsecretory type that was diagnosed in 2009. The patient has been receiving treatment under the care of Dr. Reynolds and after 4 sessions of Velcade and Decadron the patient's underwent an autologous stem cell transplantation in 2010 and the patient remained stable 2013. A repeat bone marrow biopsy that was done on 11/01/2017 showed 60% plasma cells with normal cytogenetics and the fish positive for translocation 11 ,14. The patient was treated with a combination of Revlimid and dexamethasone and Ixazomib. Following that, the treatment was held in general 2019 due to severe pancytopenia. Since then the patient has been having several pulmonary complications most significant of which was an empyema the developed in the left lung. After being treated in our facility the patient was transferred to [facility] where he underwent a thoracoscopic decortication and the Pleurx catheter insertion and the patient was transferred back to [facility] for further care. At this point in time the Pleurx catheter is in place and the patient is having some limited drainage around 20-30 mL of output every other day. The patient was also receiving radiation therapy to the left femur due to ongoing pain in that area. Patient was recently hospitalized with concerns to pneumonia, and was followed with his oncologist. It is noticed that his recent chemotherapy has not been effective they're planning for a alteration of course. The patient was home for a short period of time when his shortness of breath fatigue and malaise in pain became unmanageable in counseling presented back to the emergency center. The patient relates that at rest he is mildly short of breath. His pain is better controlled this morning. He awaits his son to come by to bring him some breakfast. Patient relates he did have a temperature 102 at home alone not being seen since his arrival here. 11/05/2018 patient is feeling better but still very shor of breath. No further fever, is pleased that his came to visit, she is very ill also. Objective - Vital Signs Vital signs: Vital Signs Temp 97.8 F 11/05/18 12:24 Pulse 80 11/05/18 17:09 Resp 20 11/05/18 12:24 BP 125/78 11/05/18 12:24 Pulse Ox 90 L 11/05/18 12:24 Intake & Output 11/04/18 11/05/18 11/05/18 18:59 06:59 18:59 Intake Total 760 403 Balance 760 403 Intake: Intake, IV Titration 250 100 Amount Levofloxacin 750Mg-D5w 150 Pmx 750 mg In Dextrose/ Water 1 150ml.bag @ 100 mls/hr IVPB Q24H [facility] Rx#: [id number] Piperacillin-Tazobactam 3 100 100 .375 gm In Sodium Chloride 0.9% 100 ml @ 25 mls/hr IVPB Q8HR [facility] Rx# :[id number] Oral 200 100 Blood Product 310 203 Platelet Irr Pheresis 0 203 Acda1 Unit [id number] Rc Irr As1 Unit 310 [id number] Other: Voiding Method Urinal Urinal Urinal Diaper Incontinent # Voids 2 1 2 # Bowel Movements 1 - Exam Gen: This is a 63-year-old male. He is sitting up in bed and appears to be comfortable and in no acute distress. The patient is able to speak in full sentences. HEENT: Head is atraumatic, normocephalic. Pupils equal, round. Sclerae is anicteric. Conjunctiva pink. Mucous membranes of the mouth are moist. White patchy and yellow patchy substance on his tongue. NECK: Supple. No JVD. No lymphadenopathy. No thyromegaly. LUNGS: There is bilateral air entry, expiratory wheezes scattered, dullness of the left base Pleurx to the left posterior chest wall. No signs of tenderness, erythema or edema. HEART: Regular rate and rhythm. No murmur. ABDOMEN: Soft. Bowel sounds are present. No masses. No tenderness. EXTREMITIES: 2+ bilateral pedal edema. No calf tenderness. Dorsalis pedis +2 bilaterally. Significant amount of ecchymosis noted to the upper extremities NEUROLOGICAL: Patient is awake, alert and oriented x3. - Labs CBC & Chem 7: 11/05/18 07:30 11/05/18 07:30 Labs: Abnormal Lab Results - Last 24 Hours (Table) 11/01/18 11/04/18 11/05/18 Range/Units 16:03 20:18 01:45 WBC (3.8-10.6) k/uL RBC (4.30-5.90) m/uL Hgb (13.0-17.5) gm/dL Hct (39.0-53.0) % RDW (11.5-15.5) % Plt Count (150-450) k/uL Blast Cells % % Neutrophils # (Manual) (1.3-7.7) k/uL Lymphocytes # (Manual) (1.0-4.8) k/uL Metamyelocytes # (Man) (0) k/uL Blast Cells # (Man) (0) k/uL Plasma Cell # (Manual) (0) k/uL Nucleated RBCs (0-0) /100 WBC Chloride (98-107) mmol/L BUN (9-20) mg/dL Glucose (74-99) mg/dL POC Glucose (mg/dL) 195 H 175 H (75-99) mg/dL Calcium (8.4-10.2) mg/dL Crossmatch See Detail 11/05/18 11/05/18 11/05/18 Range/Units 06:59 07:30 07:30 WBC 1.5 L (3.8-10.6) k/uL RBC 2.49 L (4.30-5.90) m/uL Hgb 8.0 L (13.0-17.5) gm/dL Hct 22.6 L (39.0-53.0) % RDW 20.1 H (11.5-15.5) % Plt Count 10 L* (150-450) k/uL Blast Cells % 1 H* % Neutrophils # (Manual) 0.83 L (1.3-7.7) k/uL Lymphocytes # (Manual) 0.51 L (1.0-4.8) k/uL Metamyelocytes # (Man) 0.02 H (0) k/uL Blast Cells # (Man) 0.02 H (0) k/uL Plasma Cell # (Manual) 0.12 H (0) k/uL Nucleated RBCs 4 H (0-0) /100 WBC Chloride 112 H (98-107) mmol/L BUN 28 H (9-20) mg/dL Glucose 144 H (74-99) mg/dL POC Glucose (mg/dL) 169 H (75-99) mg/dL Calcium 7.9 L (8.4-10.2) mg/dL Crossmatch 11/05/18 11/05/18 Range/Units 11:08 16:58 WBC (3.8-10.6) k/uL RBC (4.30-5.90) m/uL Hgb (13.0-17.5) gm/dL Hct (39.0-53.0) % RDW (11.5-15.5) % Plt Count (150-450) k/uL Blast Cells % % Neutrophils # (Manual) (1.3-7.7) k/uL Lymphocytes # (Manual) (1.0-4.8) k/uL Metamyelocytes # (Man) (0) k/uL Blast Cells # (Man) (0) k/uL Plasma Cell # (Manual) (0) k/uL Nucleated RBCs (0-0) /100 WBC Chloride (98-107) mmol/L BUN (9-20) mg/dL Glucose (74-99) mg/dL POC Glucose (mg/dL) 173 H 234 H (75-99) mg/dL Calcium (8.4-10.2) mg/dL Crossmatch Microbiology - Last 24 Hours (Table) 11/03/18 15:10 Blood Culture - Preliminary Blood No Growth after 48 hours 11/04/18 03:07 Urine Culture - Final Urine,Voided 11/04/18 03:30 Stool Culture - Preliminary Stool Laboratory Results WBC 1.5 k/uL (3.8-10.6) L 11/05/18 07:30 RBC 2.49 m/uL (4.30-5.90) L 11/05/18 07:30 Hgb 8.0 gm/dL (13.0-17.5) L 11/05/18 07:30 Hct 22.6 % (39.0-53.0) L 11/05/18 07:30 MCV 90.8 fL (80.0-100.0) 11/05/18 07:30 MCH 32.3 pg (25.0-35.0) 11/05/18 07:30 MCHC 35.5 g/dL (31.0-37.0) 11/05/18 07:30 RDW 20.1 % (11.5-15.5) H 11/05/18 07:30 Plt Count 10 k/uL (150-450) L* 11/05/18 07:30 Neutrophils % Not Reportable 11/01/18 15:22 Neutrophils % (Manual) 55 % 11/05/18 07:30 Band Neutrophils % 5 % 11/03/18 06:19 Lymphocytes % Not Reportable 11/01/18 15:22 Lymphocytes % (Manual) 34 % 11/05/18 07:30 Monocytes % Not Reportable 11/01/18 15:22 Monocytes % (Manual) 3 % 11/05/18 07:30 Eosinophils % Not Reportable 11/01/18 15:22 Eosinophils % (Manual) 2 % 11/04/18 08:12 Basophils % Not Reportable 11/01/18 15:22 Metamyelocytes % 1 % 11/05/18 07:30 Myelocytes % 1 % 11/01/18 03:50 Promyelocytes % Not Reportable 11/01/18 03:50 Blast Cells % 1 % H* 11/05/18 07:30 Neutrophils # Not Reportable 11/01/18 15:22 Neutrophils # (Manual) 0.83 k/uL (1.3-7.7) L 11/05/18 07:30 Lymphocytes # Not Reportable 11/01/18 15:22 Lymphocytes # (Manual) 0.51 k/uL (1.0-4.8) L 11/05/18 07:30 Monocytes # Not Reportable 11/01/18 15:22 Monocytes # (Manual) 0.05 k/uL (0-1.0) 11/05/18 07:30 Eosinophils # Not Reportable 11/01/18 15:22 Eosinophils # (Manual) 0.02 k/uL (0-0.7) 11/04/18 08:12 Basophils # Not Reportable 11/01/18 15:22 Metamyelocytes # (Man) 0.02 k/uL (0) H 11/05/18 07:30 Myelocytes # (Manual) 0.03 k/uL (0) H 11/01/18 03:50 Promyelocytes # (Man) [employer] 11/01/18 03:50 Blast Cells # (Man) 0.02 k/uL (0) H 11/05/18 07:30 Plasma Cell # (Manual) 0.12 k/uL (0) H 11/05/18 07:30 Nucleated RBCs 4 /100 WBC (0-0) H 11/05/18 07:30 Manual Slide Review Performed 11/05/18 07:30 Pathologist Review Cancelled 11/01/18 03:50 Plasma Cells % 8 % 11/05/18 07:30 Toxic Granulation Present 11/02/18 05:30 Toxic Vacuolation Present 11/01/18 03:50 Polychromasia Present 11/05/18 07:30 Hypochromasia Slight 11/02/18 05:30 Poikilocytosis Slight 11/05/18 07:30 Poikilocytosis (manual Present 11/03/18 06:19 Anisocytosis Moderate 11/05/18 07:30 Macrocytosis Slight 11/05/18 07:30 PT 13.9 sec (9.0-12.0) H 11/02/18 05:30 INR 1.4 (<1.2) H 11/02/18 05:30 APTT 26.3 sec (22.0-30.0) 11/01/18 03:50 D-Dimer 14.34 mg/L FEU (<0.60) H 11/01/18 03:50 Sodium 142 mmol/L (137-145) 11/05/18 07:30 Potassium 4.1 mmol/L (3.5-5.1) 11/05/18 07:30 Chloride 112 mmol/L (98-107) H 11/05/18 07:30 Carbon Dioxide 25 mmol/L (22-30) 11/05/18 07:30 Anion Gap 5 mmol/L 11/05/18 07:30 BUN 28 mg/dL (9-20) H 11/05/18 07:30 Creatinine 0.73 mg/dL (0.66-1.25) 11/05/18 07:30 Est GFR (CKD-EPI)AfAm >90 (>60 ml/min/1.73 sqM) 11/05/18 07:30 Est GFR (CKD-EPI)NonAf >90 (>60 ml/min/1.73 sqM) 11/05/18 07:30 Glucose 144 mg/dL (74-99) H 11/05/18 07:30 POC Glucose (mg/dL) 234 mg/dL (75-99) H 11/05/18 16:58 POC Glu Metal Molder TIANA Rashida Jaquez 11/05/18 16:58 Calcium 7.9 mg/dL (8.4-10.2) L 11/05/18 07:30 Total Bilirubin 1.3 mg/dL (0.2-1.3) 11/01/18 03:50 AST 20 U/L (17-59) 11/01/18 03:50 ALT 19 U/L (21-72) L 11/01/18 03:50 Alkaline Phosphatase 77 U/L (38-126) 11/01/18 03:50 Lactate Dehydrogenase 697 U/L (313-618) H 11/01/18 03:50 Troponin I <0.012 ng/mL (0.000-0.034) 11/01/18 03:50 NT-Pro-B Natriuret Pep 7470 pg/mL 11/01/18 03:50 Total Protein 5.5 g/dL (6.3-8.2) L 11/01/18 03:50 Total Protein (PEP) 5.2 g/dL (6.2-8.2) L 11/01/18 03:50 Albumin 2.7 g/dL (3.5-5.0) L 11/01/18 03:50 Albumin (PEP) 2.39 g/dL (3.80-4.90) L 11/01/18 03:50 Mvkcq-1-Njzfozbcf 0.49 g/dL (0.10-0.40) H 11/01/18 03:50 Hbdua-7-Xdtgcuxja 0.79 g/dL (0.60-1.00) 11/01/18 03:50 Beta Globulins 0.53 g/dL (0.60-1.30) L 11/01/18 03:50 Gamma Globulins 1.00 g/dL (0.70-1.50) 11/01/18 03:50 PEP Interpretation SEE NOTE 11/01/18 03:50 IgG 1280.0 mg/dL (700.0-1600.0) 11/01/18 03:50 IgA 241.0 mg/dL (60.0-350.0) 11/01/18 03:50 IgM 21.2 mg/dL (40.0-280.0) L 11/01/18 03:50 Serum ZIA Interpret SEE NOTE 11/01/18 03:50 Free Tiro LC, Quant 2.69 mg/dL (0.33-1.94) H 11/01/18 03:50 Free Lambda LC, Quant 2.92 mg/dL (0.57-2.63) H 11/01/18 03:50 Urine Legionella Ag Not detected (Not detected) 11/03/18 02:45 Blood Type A Positive 11/01/18 16:03 Blood Type Recheck No 11/01/18 16:03 Antibody Screen NEGATIVE 11/01/18 16:03 Crossmatch See Detail 11/01/18 16:03 Transfuse Platelets 11/04/18 11/04/18 10:39 Spec Expiration Date 11/04/2018 - 2303 11/01/18 16:03 - Imaging and Cardiology CT scan - chest: report reviewed (Improving bibasilar airspace disease, the catheter in the left pleural space with little changes.) Assessment and Plan (1) Pneumonia Narrative/Plan: 63-year-old male with a very complex past medical history regarding his multiple myeloma and its treatments. He has noticed he is status post allogenic pulmonary transplantation, chemotherapies that have all failed. He recently has had increased bony metastasis has had some radiation therapy for his pain. He was just hospitalized and there was concerns pneumonia. Despite oral antibiotic therapy at home he had worsening shortness of breath and appears to have ongoing disease progression. He is now admitted and has been seen by oncology who are planning a new regimen. Cultures are pending. Antibiotic therapy for gram-negative pneumonia is being utilized with Zosyn and Levaquin. The patient's pleural fluid did show evidence of MSSA which Zosyn should be adequate for this time while other cultures are pending. Patient is encouraged to improve his protein intake Cultures will be monitored including Legionella and de-escalate antibiotic therapy as possible. 11/05/2018 patient is starting to feel better. He is less short of breath and not having further fevers. Patient is showing some response to current von tment Legionella antigen is negative, other cultures are negative constantly May discontinue Levaquin at this time. Will be given high-dose dexamethasone as treatment for his myeloma. Interstitial induration or lack of improvement oncology will be suggesting comfort care at that time. Current Visit: Yes Status: Acute Code(s): J18.9 - PNEUMONIA, UNSPECIFIED ORGANISM SNOMED Code(s): 640512475 (2) Bicytopenia Current Visit: Yes Status: Chronic Priority: Medium Code(s): D75.89 - OTHER SPECIFIED DISEASES OF BLOOD AND BLOOD-FORMING ORGANS SNOMED Code(s): 495906062 (3) Compression fracture of lumbar spine, non-traumatic Current Visit: Yes Status: Acute Code(s): M48.56XA - COLLAPSED VERTEBRA, NEC, LUMBAR REGION, INIT SNOMED Code(s): 715822349
--- NOTE | 2018-11-05 18:10 | PN ---
PROGRESS NOTE DATE OF SERVICE: 11/05/2018 This 63-year-old gentleman who was admitted with bilateral pneumonia, possibly gram- negative and sepsis, also has a history of immunosuppression. The patient also had left-sided loculated pleural effusion. Cardiothoracic Surgery has been consulted by Dr. Blankenship, and Dr. Jenkins is also following the patient closely. Cardiothoracic Surgery has recommended consideration of alteplase with a PleurX catheter, which has been held off because of the patient's pancytopenia. Incentive spirometry has been recommended and encouraged. Past medical history reviewed. REVIEW OF SYSTEMS: CARDIOVASCULAR SYSTEM: No angina, palpitations. RESPIRATORY SYSTEM: As mentioned earlier. GI: No nausea, vomiting. : No dysuria or retention. NERVOUS SYSTEM: No numbness, weakness. CURRENT MEDICATIONS: Reviewed. They include: 1. Zovirax 400 mg p.o. b.i.d. 2. DuoNeb q.i.d. and p.r.n. 3. Xanax 0.5 t.i.d. p.r.n. 4. Lipitor 40 mg before lunch. 5. Pulmicort 1 mg. 6. Fluconazole daily. 7. Folic acid 1 mg p.o. daily. 8. Perforomist b.i.d. 9. Neurontin 600 mg p.o. t.i.d. 10.NovoLog before meals and at bedtime. 11.Lac-Hydrin. 12.Levaquin 750 p.o. daily. 13.Imodium. 14.Solu-Medrol 60 IV q.6. 15.Multivitamins 1 p.o. daily. 16.Zofran. 17.Percocet 10/325 mg. 18.Protonix. 19.Zosyn 3.375 IV q.8. 20.Restoril 15 mg at bedtime. 21.Vitamin B1 100 mg p.o. daily. 22.Kenalog b.i.d. PHYSICAL EXAMINATION: Patient is alert and oriented x3. Pulse 79, blood pressure 120/72, respiration 20, temperature 97.8, pulse ox 90% on 8 L. HEENT: Conjunctivae normal. Oral mucosa moist. NECK: No jugular venous distention. No carotid bruit. No lymph node enlargement. CARDIOVASCULAR SYSTEM: S1, S2 muffled. RESPIRATORY SYSTEM: Breath sounds diminished at the bases. Scattered rhonchi and crackles. Expiratory wheezing also present. ABDOMEN: Soft, non-tender. LEGS: Bilateral leg edema and ecchymosis and petechial hemorrhages present. NERVOUS SYSTEM: Higher functions as mentioned earlier. Moves all 4 limbs. No focal motor or sensory deficit. LYMPHATICS: No lymph node palpable in neck, axillae or groin. SKIN: No ulcer, rash, bleeding. JOINTS: No active deforming arthropathy. LABS: WBC 1.5, hemoglobin 8, platelets 10. Other labs are noted. ASSESSMENT: 1. Bilateral pneumonia, possibly gram-negative, with sepsis, present on admission. 2. Multiple myeloma with immunosuppression. 3. Left-sided loculated pleural effusion, on PleurX drainage. 4. Chronic compression fracture at T7-8 with radiculopathy. 5. History of coronary artery disease. 6. Gait dysfunction. 7. History of chronic obstructive pulmonary disease. 8. Gastroesophageal reflux disease. 9. Hypertension. 10.Hyperlipidemia. 11.Advanced multiple myeloma with left-sided pleural effusion. 12.Peripheral neuropathy, on chemotherapy. 13.Pancytopenia due to chemotherapy and multiple myeloma. 14.Perlita albicans from the sputum. 15.NO CODE, NO CPR, NO VENT. RECOMMENDATIONS AND DISCUSSION: In this 63-year-old gentleman who presented with multiple complex medical issues, we will monitor the patient closely, continue the current management, continue with symptomatic treatment. Continue with broad-spectrum IV antibiotics. Will add antifungals. We will continue to monitor. Follow closely with Infectious Disease, Cardiothoracic Surgery, Pulmonology and Hematology/Oncology. Guarded prognosis because of multiple complex medical issues. Further recommendations to follow. We will also recommend PT/OT evaluation and continue to monitor. Also increase ambulation. Once again, the prognosis is guarded. Symptomatic treatment will also be provided. Further recommendations to follow. MMODL / IJN: [id number] /
[2018-11-05 20:15] LABS: Glucose,Whole Blood 159 mg/dL (75-99)
[2018-11-06] MEDS: PIPERACILLIN-TAZOBACTAM 3.375 GM in SODIUM CHLORIDE 0.9% 100 ML IVPB SCH ×3 (00:07→16:36)
[2018-11-06] MEDS: methylPREDNISolone SOD SUCCI 125 MG/2 ML VIAL IV SCH ×4 (00:08→17:38)
[2018-11-06] MEDS: oxyCODONE-APAP 10-325MG 1 EACH TAB PO PRN ×4 (02:32→16:35)
[2018-11-06 06:47] LABS: Anisocytosis Moderate; HCT 22.3 % (39.0-53.0); HGB 7.3 gm/dL (13.0-17.5); MCH 30.5 pg (25.0-35.0); MCHC 32.9 g/dL (31.0-37.0); MCV 92.7 fL (80.0-100.0); Macrocytosis Slight; Mean Platelet Volume 9.9; RDW 20.5 % (11.5-15.5)
[2018-11-06 07:02] LABS: Glucose,Whole Blood 145 mg/dL (75-99)
[2018-11-06 07:02] LABS: Platelet Count 5 k/uL (150-450)
[2018-11-06 07:07] LABS: Anion Gap 4 mmol/L; Blood Urea Nitrogen 34 mg/dL (9-20); Calcium 7.7 mg/dL (8.4-10.2); Carbon Dioxide 26 mmol/L (22-30); Chloride 112 mmol/L (98-107); Glucose 132 mg/dL (74-99); Potassium 4.1 mmol/L (3.5-5.1); Sodium 142 mmol/L (137-145)
[2018-11-06 07:11] LABS: INR 1.2 (<1.2); Partial Thromboplastin Time 24.5 sec (22.0-30.0); Prothrombin Time 12.8 sec (9.0-12.0)
[2018-11-06 07:14] LABS: D-Dimer 34.11 mg/L FEU (<0.60)
[2018-11-06 07:38] LABS: Blast Cells # (M) 0.02 k/uL (0); Eosinophils # (M) 0.02 k/uL (0-0.7); Lymphocytes # (M) 0.49 k/uL (1.0-4.8); Metamyelocytes # (M) 0.02 k/uL (0); Metamyelocytes % 1 %; Monocytes # (M) 0.09 k/uL (0-1.0); Neutrophils % (M) 59 %; Nucleated Red Blood Cells 5 /100 WBC (0-0); Plasma Cells # (M) 0.07 k/uL (0); Plasma Cells % 4 %; Total Cells Counted 100; WBC 1.7 k/uL (3.8-10.6)
[2018-11-06 07:42] LABS: Polychromasia Present
[2018-11-06] MEDS: GABAPENTIN 300 MG CAP PO SCH ×3 (08:29→20:58)
[2018-11-06] MEDS: PANTOPRAZOLE 40 MG TABLET PO SCH (08:30)
[2018-11-06] MEDS: ACYCLOVIR 200 MG CAP PO SCH ×2 (08:30→20:58)
[2018-11-06] MEDS: FORMOTEROL FUMARATE 20 MCG/2 ML NEBU INHALATION SCH ×2 (08:30→20:52)
[2018-11-06] MEDS: INSULIN ASPART (NovoLOG) 100 UNIT/ML VIAL SQ SCH ×4 (08:30→20:57)
[2018-11-06] MEDS: BUDESONIDE 1 MG/2 ML NEBU INHALATION SCH ×2 (08:30→20:52)
[2018-11-06] MEDS: IPRATROPIUM-ALBUTEROL 3 ML NEB INHALATION SCH ×4 (08:30→20:52)
[2018-11-06] MEDS: FLUCONAZOLE IN NACL,ISO-OSM 200 MG in SALINE 1 100ML.BAG IVPB SCH (08:30)
[2018-11-06] MEDS: TRIAMCINOLONE ACET 0.1% OINTMENT 15 GM TUBE TOPICAL SCH ×2 (08:31→21:12)
[2018-11-06] MEDS: AMMONIUM LACTATE 12% LOTION 225 GM BTL TOPICAL SCH ×2 (08:31→21:13)
--- NOTE | 2018-11-06 10:20 | P.PN ---
Subjective Progress Note Date: 11/06/18 Principal diagnosis: Multilobar pneumonia This is a very pleasant 63-year-old male patient who follows with Dr. Coelho as his primary care physician. The patient has history of multiple myeloma of a nonsecretory type that was diagnosed in 2009. The patient has been receiving treatment under the care of Dr. Reynolds and after 4 sessions of Velcade and Decadron the patient's underwent an autologous stem cell transplantation in 2010 and the patient remains stable 2013. A repeat bone marrow biopsy that was done on 11/02/2079 showed 60% plasma cells with normal cytogenetics and the fish positive for translocation 11 ,14. The patient was treated with a combination of Revlimid and dexamethasone and Ixazomib. Following that, the treatment was held in general 2018 due to severe pancytopenia. Since then the patient has been having several pulmonary complications most significant of which was an empyema the developed in the left lung. After being treated in our facility the patient was transferred to [facility] where he underwent a thoracoscopic decortication and the Pleurx catheter insertion and the patient was transferred back to [facility] for further care. At this point in time the Pleurx catheter is in place and the patient is having some limited drainage around 20-30 mL of output every other day. The patient me was also receiving radiation therapy to the left femur due to ongoing pain in that area. He was just discharged here from another admission for an acute right upper lobe pneumonia and pancytopenia on 10/30/2018. The patient is seen today Nov 06 2018 in follow-up on the oncology floor. He remains awake and alert in no acute distress. He is still requiring 8 L high flow nasal cannula to maintain O2 saturations in the 90s. He is continued on DuoNeb inhalations, Pulmicort and Perforomist inhalations, IV Solu-Medrol. He is on antibiotics in the form of Zosyn. He is also on fluconazole. He is status post 3 units of packed red blood cells and 4 units of platelets. Lab work today reveals a white count of 1.7. Hemoglobin 7.3. Platelets 5000. Fibrinogen 198. INR 1.2. D-dimer 34.11. Sodium 142. Potassium 4.1. Creati nine 0.84. Objective - Vital Signs Vital signs: Vital Signs Temp 97.7 F 11/06/18 05:00 Pulse 72 11/06/18 08:54 Resp 18 11/06/18 07:43 BP 153/82 11/06/18 05:00 Pulse Ox 98 11/06/18 08:32 Intake & Output 11/05/18 11/06/18 11/06/18 18:59 06:59 18:59 Intake Total 200 Balance 200 Intake: Intake, IV Titration 200 Amount Piperacillin-Tazobactam 3 200 .375 gm In Sodium Chloride 0.9% 100 ml @ 25 mls/hr IVPB Q8HR [facility] Rx# :[id number] Other: Voiding Method Urinal Urinal Urinal Diaper Diaper # Voids 2 1 # Bowel Movements 1 - Exam GENERAL EXAM: A very pleasant pale, weak 63-year-old gentleman. Alert, and oriented 3. The patient is currently on 8 L high flow nasal cannula. EYES: Normal reaction of pupils, equal size. NOSE: Clear with pink turbinates. THROAT: No erythema or exudates. NECK: No masses, no JVD. CHEST: No chest wall deformity. LUNGS: Patient diminished breath on the left lung base and the patient has a Pleurx catheter in the left hemithorax. CVS: S1 and S2 normal with no audible murmur, regular rhythm. ABDOMEN: No hepatosplenomegaly, normal bowel sounds, no guarding or rigidity. SPINE: No scoliosis or deformity SKIN: No rashes CENTRAL NERVOUS SYSTEM: No focal deficits, tone is normal in all 4 extremities. EXTREMITIES: There is no peripheral edema. No clubbing, no cyanosis. Peripheral pulses are intact. - Labs CBC & Chem 7: 11/06/18 06:25 11/06/18 06:25 Labs: Abnormal Lab Results - Last 24 Hours (Table) 11/05/18 11/05/18 11/05/18 Range/Units 11:08 16:58 20:13 WBC (3.8-10.6) k/uL RBC (4.30-5.90) m/uL Hgb (13.0-17.5) gm/dL Hct (39.0-53.0) % RDW (11.5-15.5) % Plt Count (150-450) k/uL Blast Cells % % Neutrophils # (Manual) (1.3-7.7) k/uL Lymphocytes # (Manual) (1.0-4.8) k/uL Metamyelocytes # (Man) (0) k/uL Blast Cells # (Man) (0) k/uL Plasma Cell # (Manual) (0) k/uL Nucleated RBCs (0-0) /100 WBC PT (9.0-12.0) sec INR (<1.2) Fibrinogen (200-500) mg/dL D-Dimer (<0.60) mg/L FEU Chloride (98-107) mmol/L BUN (9-20) mg/dL Glucose (74-99) mg/dL POC Glucose (mg/dL) 173 H 234 H 159 H (75-99) mg/dL Calcium (8.4-10.2) mg/dL 11/06/18 11/06/18 11/06/18 Range/Units 06:25 06:25 06:25 WBC 1.7 L (3.8-10.6) k/uL RBC 2.40 L (4.30-5.90) m/uL Hgb 7.3 L (13.0-17.5) gm/dL Hct 22.3 L (39.0-53.0) % RDW 20.5 H (11.5-15.5) % Plt Count 5 L* (150-450) k/uL Blast Cells % 1 H* % Neutrophils # (Manual) 1.00 L (1.3-7.7) k/uL Lymphocytes # (Manual) 0.49 L (1.0-4.8) k/uL Metamyelocytes # (Man) 0.02 H (0) k/uL Blast Cells # (Man) 0.02 H (0) k/uL Plasma Cell # (Manual) 0.07 H (0) k/uL Nucleated RBCs 5 H (0-0) /100 WBC PT 12.8 H (9.0-12.0) sec INR 1.2 H (<1.2) Fibrinogen 198 L (200-500) mg/dL D-Dimer 34.11 H (<0.60) mg/L FEU Chloride 112 H (98-107) mmol/L BUN 34 H (9-20) mg/dL Glucose 132 H (74-99) mg/dL POC Glucose (mg/dL) (75-99) mg/dL Calcium 7.7 L (8.4-10.2) mg/dL 11/06/18 Range/Units 07:00 WBC (3.8-10.6) k/uL RBC (4.30-5.90) m/uL Hgb (13.0-17.5) gm/dL Hct (39.0-53.0) % RDW (11.5-15.5) % Plt Count (150-450) k/uL Blast Cells % % Neutrophils # (Manual) (1.3-7.7) k/uL Lymphocytes # (Manual) (1.0-4.8) k/uL Metamyelocytes # (Man) (0) k/uL Blast Cells # (Man) (0) k/uL Plasma Cell # (Manual) (0) k/uL Nucleated RBCs (0-0) /100 WBC PT (9.0-12.0) sec INR (<1.2) Fibrinogen (200-500) mg/dL D-Dimer (<0.60) mg/L FEU Chloride (98-107) mmol/L BUN (9-20) mg/dL Glucose (74-99) mg/dL POC Glucose (mg/dL) 145 H (75-99) mg/dL Calcium (8.4-10.2) mg/dL Microbiology - Last 24 Hours (Table) 11/03/18 15:10 Blood Culture - Preliminary Blood No Growth after 48 hours 11/04/18 03:07 Urine Culture - Final Urine,Voided 11/04/18 03:30 Stool Culture - Preliminary Stool Assessment and Plan Assessment: Impression: #1 Acute hypoxemic respiratory failure secondary to increasing right lung opacity/pneumonia as well as involvement of the both the right lower and mid lobes. In addition there is some limited infiltration of the left midlung and chronic consolidation of left lower lobe, a residual of a previous empyema and the patient is a Pleurx catheter in place with some ongoing drainage which has dropped significantly over this past few weeks. The patient is immun ocompromised. #2 Pancytopenia, a complication of multiple myeloma. Status post 3 unit of packed red blood cells and 4 doses of platelets. #3 History of a spontaneous perirenal hemorrhage along the left anterior perirenal space extending to the left kidney and left renal vein. #4 History of multiple myeloma post bone marrow transplantation #5 Generalized weakness, anorexia and ongoing constitutional symptoms and weight loss, secondary to above #6 Left lung empyema without evidence of any malignancy. The patient is undergone thoracotomy with decortication and the cultures of been negative and the patient has a Pleurx catheter in place output of which is minimal at this point in time #7 Coronary artery disease with previous coronary stent insertion and cardiac catheterization, currently free of any chest pain #8 COPD #9 Hypertension #10 Hyperlipidemia #11 Known history of coronary artery disease #12 Previous history of bone marrow transplantation and the patient undergone s tem cell transplant in 2010 #13 Chronic back pain and myeloma related lytic lesions throughout the skeletal system, possible new pathologic fractures. #14 Peripheral neuropathy #15 Peptic ulcer disease #16 Hip pain completed radiation therapy Plan: The patient was seen and evaluated by Dr. Jenkins. Labs reviewed. We'll continue with his current medications for now. Titrate down the FiO2 as tolerated. He is now status post 3 units of packed red blood cells and 4 doses of platelets. The patient's overall prognosis is poor due to his ongoing pancytopenia secondary to his multiple myeloma. He is considering possible hospice. In the interim, we'll continue to follow and make further recommendations based on his clinical status. I, the cosigning physician, performed a history & physical examination of the patient. Lungs sounds with bilateral scattered rhonchi, left greater than right. Maintaining good O2 saturations in the 90s on 8 L high flow nasal cannula. I discussed the assessment and plan of care with my nurse practitioner, Sona Edmond. I attest to the above note as dictated by her.
[2018-11-06 11:12] LABS: Glucose,Whole Blood 225 mg/dL (75-99)
[2018-11-06] MEDS: THIAMINE 100 MG TAB PO SCH (12:00)
[2018-11-06] MEDS: FOLIC ACID 1 MG TAB PO SCH (12:01)
[2018-11-06] MEDS: MULTIVITAMINS, THERA 1 EACH TAB PO SCH (12:03)
[2018-11-06] MEDS: ATORVASTATIN 40 MG TAB PO SCH (12:03)
--- NOTE | 2018-11-06 12:19 | P.PN ---
Subjective Progress Note Date: 11/06/18 Principal diagnosis: Pancytopenia and Multipple Myeloma Patient has not showed improvements over the past few day, if anything progressively worse. Dr. Reynolds spoke to son and agreed on comfort care. Objective - Vital Signs Vital signs: Vital Signs Temp 98 F 11/06/18 11:53 Pulse 66 11/06/18 11:53 Resp 20 11/06/18 11:53 BP 140/68 11/06/18 11:53 Pulse Ox 97 11/06/18 11:53 Intake & Output 11/05/18 11/06/18 11/06/18 18:59 06:59 18:59 Intake Total 200 Balance 200 Intake: Intake, IV Titration 200 Amount Piperacillin-Tazobactam 3 200 .375 gm In Sodium Chloride 0.9% 100 ml @ 25 mls/hr IVPB Q8HR [facility] Rx# :[id number] Other: Voiding Method Urinal Urinal Urinal Diaper Diaper # Voids 2 1 # Bowel Movements 1 - Exam - Constitutional General appearance: Present: cooperative, no acute distress, thin - EENT Eyes: Present: anicteric sclerae, EOMI ENT: Present: hearing grossly normal - Respiratory Details: Respirations even and unlabored - Cardiovascular Rhythm: regular - Peripheral edema leg Bilateral edema with extensive petechaie and and confluen eccymosis. - Gastrointestinal General gastrointestinal: Present: soft - Integumentary Integumentary: Present: pale - Neurologic Neurologic: Present: CNII-XII intact - Musculoskeletal Musculoskeletal: Present: generalized weakness, strength equal bilaterally - Psychiatric Psychiatric: Present: A&O x's 3, appropriate affect, intact judgment & insight - Labs CBC & Chem 7: 11/06/18 17:45 11/06/18 06:25 Labs: Abnormal Lab Results - Last 24 Hours (Table) 11/05/18 11/05/18 11/06/18 Range/Units 16:58 20:13 06:25 WBC 1.7 L (3.8-10.6) k/uL RBC 2.40 L (4.30-5.90) m/uL Hgb 7.3 L (13.0-17.5) gm/dL Hct 22.3 L (39.0-53.0) % RDW 20.5 H (11.5-15.5) % Plt Count 5 L* (150-450) k/uL Blast Cells % 1 H* % Neutrophils # (Manual) 1.00 L (1.3-7.7) k/uL Lymphocytes # (Manual) 0.49 L (1.0-4.8) k/uL Metamyelocytes # (Man) 0.02 H (0) k/uL Blast Cells # (Man) 0.02 H (0) k/uL Plasma Cell # (Manual) 0.07 H (0) k/uL Nucleated RBCs 5 H (0-0) /100 WBC PT (9.0-12.0) sec INR (<1.2) Fibrinogen (200-500) mg/dL D-Dimer (<0.60) mg/L FEU Chloride (98-107) mmol/L BUN (9-20) mg/dL Glucose (74-99) mg/dL POC Glucose (mg/dL) 234 H 159 H (75-99) mg/dL Calcium (8.4-10.2) mg/dL 11/06/18 11/06/18 11/06/18 Range/Units 06:25 06:25 07:00 WBC (3.8-10.6) k/uL RBC (4.30-5.90) m/uL Hgb (13.0-17.5) gm/dL Hct (39.0-53.0) % RDW (11.5-15.5) % Plt Count (150-450) k/uL Blast Cells % % Neutrophils # (Manual) (1.3-7.7) k/uL Lymphocytes # (Manual) (1.0-4.8) k/uL Metamyelocytes # (Man) (0) k/uL Blast Cells # (Man) (0) k/uL Plasma Cell # (Manual) (0) k/uL Nucleated RBCs (0-0) /100 WBC PT 12.8 H (9.0-12.0) sec INR 1.2 H (<1.2) Fibrinogen 198 L (200-500) mg/dL D-Dimer 34.11 H (<0.60) mg/L FEU Chloride 112 H (98-107) mmol/L BUN 34 H (9-20) mg/dL Glucose 132 H (74-99) mg/dL POC Glucose (mg/dL) 145 H (75-99) mg/dL Calcium 7.7 L (8.4-10.2) mg/dL 11/06/18 Range/Units 11:10 WBC (3.8-10.6) k/uL RBC (4.30-5.90) m/uL Hgb (13.0-17.5) gm/dL Hct (39.0-53.0) % RDW (11.5-15.5) % Plt Count (150-450) k/uL Blast Cells % % Neutrophils # (Manual) (1.3-7.7) k/uL Lymphocytes # (Manual) (1.0-4.8) k/uL Metamyelocytes # (Man) (0) k/uL Blast Cells # (Man) (0) k/uL Plasma Cell # (Manual) (0) k/uL Nucleated RBCs (0-0) /100 WBC PT (9.0-12.0) sec INR (<1.2) Fibrinogen (200-500) mg/dL D-Dimer (<0.60) mg/L FEU Chloride (98-107) mmol/L BUN (9-20) mg/dL Glucose (74-99) mg/dL POC Glucose (mg/dL) 225 H (75-99) mg/dL Calcium (8.4-10.2) mg/dL Microbiology - Last 24 Hours (Table) 11/03/18 15:10 Blood Culture - Preliminary Blood No Growth after 48 hours 11/04/18 03:07 Urine Culture - Final Urine,Voided 11/04/18 03:30 Stool Culture - Preliminary Stool Assessment and Plan Plan: Multiple Myeloma: - Details per HPI - Treatment currently on hold for pancytopenia, recent progression of disease and prolonged hospital stay for decortication and empyema - Will order restaging blood work today for baseline - I have discussed in detail with his primary oncologist Dr. Reynolds, will order Next Line Treatment with Darzalex/Pomalyst/Dexamethasone - A 4 day bolus dexamethasone while inpatient considered This will act as a treatment dose against myeloma. - Dr. Blankenship had long discussion with patient regarding his current condition and if it does not improve or continues to deteriorate, then less likely a candidate for specific myeloma therapy with a realistic chance of benefit. In that situation comfort care is reasonable. Pancytopenia: Secondary to Malignancy and Chemotherapy - Continue to monitor CBC - Transfusion support PRN, Hgb less than 7, PLatelets less than 10 - ALL IRRADIATED BLOOD PRODUCTS - Status Post Platlet Transfusion awaing post CBC - G-CSF - if Neuts less than 1 Acute on Chronic Respiratory Failure - - progressing - Pulm following - Antibiotics for possible Pneumonia Pneumonia: - new Right Pneumonia, versus his prior episodes affecting left lung. Constipation: Improved - Recent increase in narcotics - Recent decrease in activity related to Left femoral head lesion and prolonged hospital stay for pulmonary infection Nausea & vomiting - Improved - Antiemetics PRN - Marinol as an appetite stimulants ordered, improved today, no episodes of vomiting. - Continue Marinol at discharge Left Lung Empyema and Persistent Infection: - Persistent left lung infection, questionable mass, empyema. - Patient has had multiple hospitalizations and complications due to this left lung mass/infection, empyema, recurrent effusion. T - Pleurex in place and pulmonary and Cardiothorax is following - This is persistent and still requiring workup. Concern was that performing any type of diagnostic workup could be complicated by infection. - Continue treatment per IM and Pulmonary for now. PLan: -Comfort measures only - Consult Hospice for informational meeting - Overall Prognosis poor - Long discussion with patient and son and plan for hospice care, still undecided on in patient or outpatient Huyen DAVID
--- NOTE | 2018-11-06 12:56 | P.PN ---
Subjective Progress Note Date: 11/06/18 This is a 63-year-old male with history of multiple myeloma of a nonsecretory type that was diagnosed in 2009. The patient has been receiving treatment under the care of Dr. Reynolds and after 4 sessions of Velcade and Decadron the patient's underwent an autologous stem cell transplantation in 2010 and the patient remained stable 2013. A repeat bone marrow biopsy that was done on 11/01/2017 showed 60% plasma cells with normal cytogenetics and the fish positive for translocation 11 ,14. The patient was treated with a combination of Revlimid and dexamethasone and Ixazomib. Following that, the treatment was held in general 2019 due to severe pancytopenia. Since then the patient has been having several pulmonary complications most significant of which was an empyema the developed in the left lung. After being treated in our facility the patient was transferred to where he underwent a thoracoscopic decortication and the Pleurx catheter insertion and the patient was transferred back to [place] for further care. At this point in time the Pleurx catheter is in place and the patient is having some limited drainage around 20-30 mL of output every other day. The patient was also receiving radiation therapy to the left femur due to ongoing pain in that area. Patient was recently hospitalized with concerns to pneumonia, and was followed with his oncologist. It is noticed that his recent chemotherapy has not been effective they're planning for a alteration of course. The patient was home for a short period of time when his shortness of breath fatigue and malaise in pain became unmanageable in counseling presented back to the emergency center. The patient relates that at rest he is mildly short of breath. His pain is better controlled this morning. He awaits his son to come by to bring him some breakfast. Patient relates he did have a temperature 102 at home alone not being seen since his arrival here. 11/05/2018 patient is feeling better but still very short of breath. No further fever, is pleased that his came to visit, she is very ill also. .11/06/2018 Little change of status and is having a visit with the hospice coordinators Objective - Vital Signs Vital signs: Vital Signs Temp 98.6 F 11/06/18 12:40 Pulse 83 11/06/18 12:40 Resp 19 11/06/18 12:40 BP 129/74 11/06/18 12:40 Pulse Ox 97 11/06/18 11:53 Intake & Output 11/05/18 11/06/18 11/06/18 18:59 06:59 18:59 Intake Total 200 0 Balance 200 0 Intake: Intake, IV Titration 200 Amount Piperacillin-Tazobactam 3 200 .375 gm In Sodium Chloride 0.9% 100 ml @ 25 mls/hr IVPB Q8HR [facility] Rx# :[id number] Blood Product 0 Platelet Irr Pheresis 0 Acda1 Unit [id number] Other: Voiding Method Urinal Urinal Urinal Diaper Diaper # Voids 2 1 # Bowel Movements 1 - Exam Gen: This is a 63-year-old male. He is sitting up in bed and appears to be comfortable and in no acute distress. The patient is able to speak in full sentences. HEENT: Head is atraumatic, normocephalic. Pupils equal, round. Sclerae is anicteric. Conjunctiva pink. Mucous membranes of the mouth are moist. White patchy and yellow patchy substance on his tongue. NECK: Supple. No JVD. No lymphadenopathy. No thyromegaly. LUNGS: There is bilateral air entry, expiratory wheezes scattered, dullness of the left base Pleurx to the left posterior chest wall. No signs of tenderness, erythema or edema. HEART: Regular rate and rhythm. No murmur. ABDOMEN: Soft. Bowel sounds are present. No masses. No tenderness. EXTREMITIES: 2+ bilateral pedal edema. No calf tenderness. Dorsalis pedis +2 bilaterally. Significant amount of ecchymosis noted to the upper extremities NEUROLOGICAL: Patient is awake, alert and oriented x3. - Labs CBC & Chem 7: 11/06/18 06:25 11/06/18 06:25 Labs: Abnormal Lab Results - Last 24 Hours (Table) 11/05/18 11/05/18 11/06/18 Range/Units 16:58 20:13 06:25 WBC 1.7 L (3.8-10.6) k/uL RBC 2.40 L (4.30-5.90) m/uL Hgb 7.3 L (13.0-17.5) gm/dL Hct 22.3 L (39.0-53.0) % RDW 20.5 H (11.5-15.5) % Plt Count 5 L* (150-450) k/uL Blast Cells % 1 H* % Neutrophils # (Manual) 1.00 L (1.3-7.7) k/uL Lymphocytes # (Manual) 0.49 L (1.0-4.8) k/uL Metamyelocytes # (Man) 0.02 H (0) k/uL Blast Cells # (Man) 0.02 H (0) k/uL Plasma Cell # (Manual) 0.07 H (0) k/uL Nucleated RBCs 5 H (0-0) /100 WBC PT (9.0-12.0) sec INR (<1.2) Fibrinogen (200-500) mg/dL D-Dimer (<0.60) mg/L FEU Chloride (98-107) mmol/L BUN (9-20) mg/dL Glucose (74-99) mg/dL POC Glucose (mg/dL) 234 H 159 H (75-99) mg/dL Calcium (8.4-10.2) mg/dL 11/06/18 11/06/18 11/06/18 Range/Units 06:25 06:25 07:00 WBC (3.8-10.6) k/uL RBC (4.30-5.90) m/uL Hgb (13.0-17.5) gm/dL Hct (39.0-53.0) % RDW (11.5-15.5) % Plt Count (150-450) k/uL Blast Cells % % Neutrophils # (Manual) (1.3-7.7) k/uL Lymphocytes # (Manual) (1.0-4.8) k/uL Metamyelocytes # (Man) (0) k/uL Blast Cells # (Man) (0) k/uL Plasma Cell # (Manual) (0) k/uL Nucleated RBCs (0-0) /100 WBC PT 12.8 H (9.0-12.0) sec INR 1.2 H (<1.2) Fibrinogen 198 L (200-500) mg/dL D-Dimer 34.11 H (<0.60) mg/L FEU Chloride 112 H (98-107) mmol/L BUN 34 H (9-20) mg/dL Glucose 132 H (74-99) mg/dL POC Glucose (mg/dL) 145 H (75-99) mg/dL Calcium 7.7 L (8.4-10.2) mg/dL 11/06/18 Range/Units 11:10 WBC (3.8-10.6) k/uL RBC (4.30-5.90) m/uL Hgb (13.0-17.5) gm/dL Hct (39.0-53.0) % RDW (11.5-15.5) % Plt Count (150-450) k/uL Blast Cells % % Neutrophils # (Manual) (1.3-7.7) k/uL Lymphocytes # (Manual) (1.0-4.8) k/uL Metamyelocytes # (Man) (0) k/uL Blast Cells # (Man) (0) k/uL Plasma Cell # (Manual) (0) k/uL Nucleated RBCs (0-0) /100 WBC PT (9.0-12.0) sec INR (<1.2) Fibrinogen (200-500) mg/dL D-Dimer (<0.60) mg/L FEU Chloride (98-107) mmol/L BUN (9-20) mg/dL Glucose (74-99) mg/dL POC Glucose (mg/dL) 225 H (75-99) mg/dL Calcium (8.4-10.2) mg/dL Microbiology - Last 24 Hours (Table) 11/03/18 15:10 Blood Culture - Preliminary Blood No Growth after 48 hours 11/04/18 03:07 Urine Culture - Final Urine,Voided 11/04/18 03:30 Stool Culture - Preliminary Stool Laboratory Results WBC 1.7 k/uL (3.8-10.6) L 11/06/18 06:25 RBC 2.40 m/uL (4.30-5.90) L 11/06/18 06:25 Hgb 7.3 gm/dL (13.0-17.5) L 11/06/18 06:25 Hct 22.3 % (39.0-53.0) L 11/06/18 06:25 MCV 92.7 fL (80.0-100.0) 11/06/18 06:25 MCH 30.5 pg (25.0-35.0) 11/06/18 06:25 MCHC 32.9 g/dL (31.0-37.0) 11/06/18 06:25 RDW 20.5 % (11.5-15.5) H 11/06/18 06:25 Plt Count 5 k/uL (150-450) L* 11/06/18 06:25 Neutrophils % Not Reportable 11/01/18 15:22 Neutrophils % (Manual) 59 % 11/06/18 06:25 Band Neutrophils % 5 % 11/03/18 06:19 Lymphocytes % Not Reportable 11/01/18 15:22 Lymphocytes % (Manual) 29 % 11/06/18 06:25 Monocytes % Not Reportable 11/01/18 15:22 Monocytes % (Manual) 5 % 11/06/18 06:25 Eosinophils % Not Reportable 11/01/18 15:22 Eosinophils % (Manual) 1 % 11/06/18 06:25 Basophils % Not Reportable 11/01/18 15:22 Metamyelocytes % 1 % 11/06/18 06:25 Myelocytes % 1 % 11/01/18 03:50 Promyelocytes % Not Reportable 11/01/18 03:50 Blast Cells % 1 % H* 11/06/18 06:25 Neutrophils # Not Reportable 11/01/18 15:22 Neutrophils # (Manual) 1.00 k/uL (1.3-7.7) L 11/06/18 06:25 Lymphocytes # Not Reportable 11/01/18 15:22 Lymphocytes # (Manual) 0.49 k/uL (1.0-4.8) L 11/06/18 06:25 Monocytes # Not Reportable 11/01/18 15:22 Monocytes # (Manual) 0.09 k/uL (0-1.0) 11/06/18 06:25 Eosinophils # Not Reportable 11/01/18 15:22 Eosinophils # (Manual) 0.02 k/uL (0-0.7) 11/06/18 06:25 Basophils # Not Reportable 11/01/18 15:22 Metamyelocytes # (Man) 0.02 k/uL (0) H 11/06/18 06:25 Myelocytes # (Manual) 0.03 k/uL (0) H 11/01/18 03:50 Promyelocytes # (Man) ARCHAEOLOGIST 11/01/18 03:50 Blast Cells # (Man) 0.02 k/uL (0) H 11/06/18 06:25 Plasma Cell # (Manual) 0.07 k/uL (0) H 11/06/18 06:25 Nucleated RBCs 5 /100 WBC (0-0) H 11/06/18 06:25 Manual Slide Review Performed 11/06/18 06:25 Pathologist Review Cancelled 11/01/18 03:50 Plasma Cells % 4 % 11/06/18 06:25 Toxic Granulation Present 11/02/18 05:30 Toxic Vacuolation Present 11/01/18 03:50 Polychromasia Present 11/06/18 06:25 Hypochromasia Slight 11/02/18 05:30 Poikilocytosis Slight 11/05/18 07:30 Poikilocytosis (manual Present 11/03/18 06:19 Anisocytosis Moderate 11/06/18 06:25 Macrocytosis Slight 11/06/18 06:25 PT 12.8 sec (9.0-12.0) H 11/06/18 06:25 INR 1.2 (<1.2) H 11/06/18 06:25 APTT 24.5 sec (22.0-30.0) 11/06/18 06:25 Fibrinogen 198 mg/dL (200-500) L 11/06/18 06:25 D-Dimer 34.11 mg/L FEU (<0.60) H 11/06/18 06:25 Sodium 142 mmol/L (137-145) 11/06/18 06:25 Potassium 4.1 mmol/L (3.5-5.1) 11/06/18 06:25 Chloride 112 mmol/L (98-107) H 11/06/18 06:25 Carbon Dioxide 26 mmol/L (22-30) 11/06/18 06:25 Anion Gap 4 mmol/L 11/06/18 06:25 BUN 34 mg/dL (9-20) H 11/06/18 06:25 Creatinine 0.84 mg/dL (0.66-1.25) 11/06/18 06:25 Est GFR (CKD-EPI)AfAm >90 (>60 ml/min/1.73 sqM) 11/06/18 06:25 Est GFR (CKD-EPI)NonAf >90 (>60 ml/min/1.73 sqM) 11/06/18 06:25 Glucose 132 mg/dL (74-99) H 11/06/18 06:25 POC Glucose (mg/dL) 225 mg/dL (75-99) H 11/06/18 11:10 POC Glu Coroner Transport Technician ID Rashida Jaquez 11/06/18 11:10 Calcium 7.7 mg/dL (8.4-10.2) L 11/06/18 06:25 Total Bilirubin 1.3 mg/dL (0.2-1.3) 11/01/18 03:50 AST 20 U/L (17-59) 11/01/18 03:50 ALT 19 U/L (21-72) L 11/01/18 03:50 Alkaline Phosphatase 77 U/L (38-126) 11/01/18 03:50 Lactate Dehydrogenase 697 U/L (313-618) H 11/01/18 03:50 Troponin I <0.012 ng/mL (0.000-0.034) 11/01/18 03:50 NT-Pro-B Natriuret Pep 7470 pg/mL 11/01/18 03:50 Total Protein 5.5 g/dL (6.3-8.2) L 11/01/18 03:50 Total Protein (PEP) 5.2 g/dL (6.2-8.2) L 11/01/18 03:50 Albumin 2.7 g/dL (3.5-5.0) L 11/01/18 03:50 Albumin (PEP) 2.39 g/dL (3.80-4.90) L 11/01/18 03:50 Gtbbk-3-Fjozrjbht 0.49 g/dL (0.10-0.40) H 11/01/18 03:50 Xdztl-4-Xktbvymiy 0.79 g/dL (0.60-1.00) 11/01/18 03:50 Beta Globulins 0.53 g/dL (0.60-1.30) L 11/01/18 03:50 Gamma Globulins 1.00 g/dL (0.70-1.50) 11/01/18 03:50 PEP Interpretation SEE NOTE 11/01/18 03:50 IgG 1280.0 mg/dL (700.0-1600.0) 11/01/18 03:50 IgA 241.0 mg/dL (60.0-350.0) 11/01/18 03:50 IgM 21.2 mg/dL (40.0-280.0) L 11/01/18 03:50 Serum ZIA Interpret SEE NOTE 11/01/18 03:50 Free National LC, Quant 2.69 mg/dL (0.33-1.94) H 11/01/18 03:50 Free Lambda LC, Quant 2.92 mg/dL (0.57-2.63) H 11/01/18 03:50 Urine Legionella Ag Not detected (Not detected) 11/03/18 02:45 Blood Type A Positive 11/01/18 16:03 Blood Type Recheck No 11/01/18 16:03 Antibody Screen NEGATIVE 11/01/18 16:03 Crossmatch See Detail 11/01/18 16:03 Transfuse Platelets 11/06/18 11/06/18 08:40 Spec Expiration Date 11/04/2018 - 2303 11/01/18 16:03 Microbiology 11/03/18 15:10 Blood Blood Culture - Preliminary No Growth after 48 hours 11/04/18 03:07 Urine,Voided Urine Culture - Final 11/04/18 03:30 Stool Stool Culture - Preliminary 11/02/18 07:15 Sputum Gram Stain - Final 11/02/18 07:15 Sputum Sputum Culture - Final Perlita albicans Assessment and Plan (1) Pneumonia Narrative/Plan: 63-year-old male with a very complex past medical history regarding his multiple myeloma and its treatments. He has noticed he is status post allogenic pulmonary transplantation, chemotherapies that have all failed. He recently has had increased bony metastasis has had some radiation therapy for his pain. He was just hospitalized and there was concerns pneumonia. Despite oral antibiotic therapy at home he had worsening shortness of breath and appears to have ongoing disease progression. He is now admitted and has been seen by oncology who are planning a new regimen. Cultures are pending. Antibiotic therapy for gram-negative pneumonia is being utilized with Zosyn and Levaquin. The patient's pleural fluid did show evidence of MSSA which Zosyn should be adequate for this time while other cultures are pending. Patient is encouraged to improve his protein intake Cultures will be monitored including Legionella and de-escalate antibiotic therapy as possible. 11/05/2018 patient is starting to feel better. He is less short of breath and not having further fevers. Patient is showing some response to current treatment Legionella antigen is negative, other cultures are negative constantly May discontinue Levaquin at this time. Will be given high-dose dexamethasone as treatment for his myeloma. If lack of improvement oncology will be suggesting comfort care at that time. 11/06/2018 patient is having a hospice consultation with the provider team today. Current Visit: Yes Status: Acute Code(s): J18.9 - PNEUMONIA, UNSPECIFIED ORGANISM SNOMED Code(s): 592390898 (2) Bicytopenia Current Visit: Yes Status: Chronic Priority: Medium Code(s): D75.89 - OTHER SPECIFIED DISEASES OF BLOOD AND BLOOD-FORMING ORGANS SNOMED Code(s): 273309706 (3) Compression fracture of lumbar spine, non-traumatic Current Visit: Yes Status: Acute Code(s): M48.56XA - COLLAPSED VERTEBRA, NEC, LUMBAR REGION, INIT SNOMED Code(s): 266403255
[2018-11-06 16:57] LABS: Glucose,Whole Blood 209 mg/dL (75-99)
[2018-11-06] MEDS: ALPRAZolam 0.5 MG TAB PO PRN (17:38)
[2018-11-06 18:11] LABS: Anisocytosis Slight; HCT 21.3 % (39.0-53.0); HGB 7.3 gm/dL (13.0-17.5); MCH 31.5 pg (25.0-35.0); MCHC 34.4 g/dL (31.0-37.0); MCV 91.6 fL (80.0-100.0); Mean Platelet Volume 9.1; RBC 2.33 m/uL (4.30-5.90); RDW 18.7 % (11.5-15.5); WBC 2.7 k/uL (3.8-10.6)
[2018-11-06 18:12] LABS: Platelet Count 21 k/uL (150-450)
--- NOTE | 2018-11-06 19:09 | PN ---
PROGRESS NOTE DATE OF SERVICE: 11/06/2018 This 63-year-old gentleman who was admitted with bilateral pneumonia also had history of multiple myeloma and immunosuppression. The patient also had left sided loculated pleural effusion. The patient also had chronic compression fracture T7, T8 with radiculopathy. The patient being closely monitored. Patient is confused. The cultures, sputum cultures showed Perlita albicans. Multiple consultants are following the patient closely including Infectious Disease. CURRENT MEDICATIONS ARE: Reviewed and include: 1. Zovirax 400 mg b.i.d. p.r.n. 2. DuoNeb q.i.d. and p.r.n. 3. Lipitor 40 mg. 4. Pulmicort 1 mg b.i.d. 5. Folic acid. 6. Perforomist b.i.d. 7. Neurontin 600 mg po daily. 8. NovoLog. 9. Lac-Hydrin. 10.Imodium p.r.n. 11.Solu-Medrol 60 IV q.6h. 12.Multivitamins. 13.Zofran. 14.Percocet p.o. q.4h. 15.Protonix 40 mg daily. 16.Zosyn 3.5 q.8h. 17.Restoril 50 mg q.h.s. 18.Vitamin B1 100 mg. 19.Kenalog local application topically b.i.d. PHYSICAL EXAM: Patient is alert, oriented x2. Pulse is 84, blood pressure is 120/64, respiratory rate 19, temperature 98.2. Pulse ox is 97% on high-flow oxygen. HEENT: Conjunctivae pale. NECK: No jugular venous distention. CARDIOVASCULAR: S1, S2 muffled. RESPIRATIONS: Breath sounds diminished in the bases. Bilateral scattered rhonchi and crackles. Expiratory wheezing also present. ABDOMEN: Soft, nontender. LEGS: Bilateral leg edema. NERVOUS SYSTEM: Diffusely weak. SKIN: Diffuse petechiae. LABS: WBC 4.7, hemoglobin 7.3, platelets are 5 and INR is 1.2. Glucose noted. ASSESSMENT: 1. Bilateral pneumonia possibly gram-negative with sepsis present on admission. 2. Multiple myeloma with immunosuppression. 3. Left-sided located pleural effusion, on PleurX drainage. 4. Chronic compression fracture T7 and T8 with radiculopathy. 5. History of coronary artery disease. 6. Gait dysfunction. 7. History of chronic obstructive pulmonary disease. 8. History of gastroesophageal reflux disease. 9. Hypertension. 10.Hyperlipidemia. 11.Advanced multiple myeloma with left-sided pleural effusion. 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 13.Pancytopenia due to chemotherapy, multiple myeloma. 14.Perlita albicans in the sputum. 15.NO CODE, NO CPR, NO VENT. RECOMMENDATIONS AND DISCUSSION: Recommend to continue current medications. Continue with monitoring and symptomatic treatment. Otherwise, continue with antibiotics, antifungals. Closely follow with multiple consultants. The patient is currently NO CODE. I had a discussion about hospice and comfort measures also underway. We will await Dr. Reynolds's input also. Dr. Reynolds has been seeing the patient for the last 8 years per the patient. Further recommendations to follow. MMODL / IJN: [id number] / MTDD
[2018-11-06 20:11] LABS: Glucose,Whole Blood 228 mg/dL (75-99)
[2018-11-07 05:38] VITALS: TEMP 97.4
[2018-11-07] MEDS: methylPREDNISolone SOD SUCCI 125 MG/2 ML VIAL IV SCH ×4 (05:56→14:43)
[2018-11-07] MEDS: PIPERACILLIN-TAZOBACTAM 3.375 GM in SODIUM CHLORIDE 0.9% 100 ML IVPB SCH ×3 (05:56→14:42)
[2018-11-07] MEDS: ALPRAZolam 0.5 MG TAB PO PRN (06:38)
[2018-11-07] MEDS: IPRATROPIUM-ALBUTEROL 3 ML NEB INHALATION SCH ×3 (06:50→15:51)
[2018-11-07] MEDS: FORMOTEROL FUMARATE 20 MCG/2 ML NEBU INHALATION SCH (06:50)
[2018-11-07] MEDS: BUDESONIDE 1 MG/2 ML NEBU INHALATION SCH (06:51)
[2018-11-07 07:09] LABS: Glucose,Whole Blood 144 mg/dL (75-99)
[2018-11-07] MEDS ORDERED: FUROSEMIDE 10 MG/ML 2 ML VIAL IV STA ×2 (07:14→07:19)
[2018-11-07] MEDS ORDERED: FUROSEMIDE 10 MG/ML 2 ML VIAL ONE (07:19)
[2018-11-07 07:35] VITALS: RESP 30
[2018-11-07 07:45] VITALS: BP 138/83
[2018-11-07 07:46] VITALS: PULSE 92
--- NOTE | 2018-11-07 08:07 | XR ---
EXAMINATION TYPE: XR chest 1V portable DATE OF EXAM: 11/07/2018 CLINICAL HISTORY: Difficulty breathing progress study. TECHNIQUE: Single AP portable upright view of the chest is obtained. COMPARISON: Chest x-ray from [address] chest from 3 days earlier. Older studies. FINDINGS: Right-sided PICC line is stable in appearance. There is redemonstration of chronic parench ymal change with lateral right upper lung consolidation remaining present. There is left mid lung con solidation with diffuse left lung infiltrate. There is persistent left basilar chest tube with some c oiling redemonstrated. No pneumothorax is seen bilaterally. Cardiac silhouette size appears within no rmal limits. Background chronic emphysematous change noted. Osseous structures are intact. IMPRESSION: Overall stable findings, background chronic emphysematous change and parenchymal fibros is with lateral right upper lung consolidation and diffuse left lung edema and/or infiltrate with mor e focal lateral left mid lung consolidation all redemonstrated. Left basilar chest tube without pneum othorax. Probable residual pleural fluid collection.
[2018-11-07] MEDS ORDERED: ATROPINE OPHTH SOLN 1% 5ML BTL SUBLINGUAL PRN (08:35)
[2018-11-07] MEDS ORDERED: ACETAMINOPHEN SUPPOSITORY 650 MG SUPP RECTAL PRN (08:35)
[2018-11-07] MEDS ORDERED: FLUCONAZOLE 100 MG TAB PO SCH (09:00)
[2018-11-07] MEDS ORDERED: SCOPOLAMINE 1.5MG/72HR PATCH TRANSDERM SCH (09:00)
[2018-11-07] MEDS: PANTOPRAZOLE 40 MG TABLET PO SCH (09:38)
[2018-11-07] MEDS: INSULIN ASPART (NovoLOG) 100 UNIT/ML VIAL SQ SCH ×3 (09:38→14:43)
[2018-11-07] MEDS: ACYCLOVIR 200 MG CAP PO SCH (09:39)
[2018-11-07] MEDS: AMMONIUM LACTATE 12% LOTION 225 GM BTL TOPICAL SCH (09:39)
[2018-11-07] MEDS: GABAPENTIN 300 MG CAP PO SCH ×2 (09:39→13:06)
[2018-11-07] MEDS: LORazepam 2 MG/ML INJ IV PRN ×2 (09:51→14:21)
--- NOTE | 2018-11-07 10:39 | P.PN ---
Subjective Progress Note Date: 11/07/18 Principal diagnosis: Pancytopenia and Multipple Myeloma patient appears comfortable no family at bedside this am. Objective - Vital Signs Vital signs: Vital Signs Temp 97.4 F L 11/07/18 05:00 Pulse 88 11/07/18 07:35 Resp 30 H 11/07/18 07:35 BP 138/83 11/07/18 07:35 Pulse Ox 95 11/07/18 07:35 Intake & Output 11/06/18 11/07/18 11/07/18 18:59 06:59 18:59 Intake Total 0 50 Balance 0 50 Intake: Intake, IV Titration 50 Amount Piperacillin-Tazobactam 3 50 .375 gm In Sodium Chloride 0.9% 100 ml @ 25 mls/hr IVPB Q8HR [facility] Rx# :[id number] Blood Product 0 Platelet Irr Pheresis 0 Acda1 Unit [id number] Other: Voiding Method Urinal Diaper Diaper # Voids 2 2 # Bowel Movements 1 - Exam - Constitutional General appearance: Present: cooperative, no acute distress, thin - EENT Eyes: Present: anicteric sclerae, EOMI - Respiratory Details: Respirations even Increased effort noted - Cardiovascular Rhythm: Tachy - Peripheral edema leg Bilateral edema with extensive petechaie and and confluen eccymosis. - Gastrointestinal General gastrointestinal: Present: soft - Integumentary Integumentary: Present: pale - Neurologic Neurologic:unable to assess - Musculoskeletal Musculoskeletal: Present: generalized weakness, strength equal bilaterally - Psychiatric Psychiatric: Present: sleeping - Labs CBC & Chem 7: 11/06/18 17:45 11/06/18 06:25 Labs: Abnormal Lab Results - Last 24 Hours (Table) 11/06/18 11/06/18 11/06/18 Range/Units 11:10 16:55 17:45 WBC 2.7 L (3.8-10.6) k/uL RBC 2.33 L (4.30-5.90) m/uL Hgb 7.3 L (13.0-17.5) gm/dL Hct 21.3 L (39.0-53.0) % RDW 18.7 H (11.5-15.5) % Plt Count 21 L D (150-450) k/uL POC Glucose (mg/dL) 225 H 209 H (75-99) mg/dL 11/06/18 11/07/18 Range/Units 20:09 07:06 WBC (3.8-10.6) k/uL RBC (4.30-5.90) m/uL Hgb (13.0-17.5) gm/dL Hct (39.0-53.0) % RDW (11.5-15.5) % Plt Count (150-450) k/uL POC Glucose (mg/dL) 228 H 144 H (75-99) mg/dL Microbiology - Last 24 Hours (Table) 11/03/18 15:10 Blood Culture - Preliminary Blood No Growth after 72 hours Assessment and Plan Plan: Multiple Myeloma: - Details per HPI - Treatment currently on hold for pancytopenia, recent progression of disease and prolonged hospital stay for decortication and empyema - Withi his rapid decline further treatment is not resonable. Dr. Reynolds did discuss with patient and family - Dr. Blankenship had long discussion with patient regarding his current condition and if it does not improve or continues to deteriorate, then less likely a candidate for specific myeloma therapy with a realistic chance of benefit. In that situation comfort care is reasonable. Pancytopenia: Secondary to Malignancy and Chemotherapy - Continue to monitor CBC - Transfusion support PRN, Hgb less than 7, PLatelets less than 10 - ALL IRRA DIATED BLOOD PRODUCTS - Status Post Platlet Transfusion awaing post CBC - G-CSF - if Neuts less than 1 Acute on Chronic Respiratory Failure - progressing, on Venti mask for comfort - progressing - Pulm following - Antibiotics for possible Pneumonia Pneumonia: - new Right Pneumonia, versus his prior episodes affecting left lung. Constipation: Improved - Recent increase in narcotics - Recent decrease in activity related to Left femoral head lesion and prolonged hospital stay for pulmonary infection Nausea & vomiting - Improved - Antiemetics PRN Left Lung Empyema and Persistent Infection: - Persistent left lung infection, questionable mass, empyema. - Pleurex in place and pulmonary and Cardiothorax is following PLan: -Comfort measures only - Await decision on Hospice care ECF, Hospice House or Home Huyen TRENTYolanda
[2018-11-07] MEDS: TRIAMCINOLONE ACET 0.1% OINTMENT 15 GM TUBE TOPICAL SCH (11:02)
[2018-11-07] MEDS: MORPHINE SULFATE 2 MG/ML SYRINGE IV PRN ×2 (11:46→15:50)
[2018-11-07] MEDS: FOLIC ACID 1 MG TAB PO SCH (13:03)
[2018-11-07] MEDS: MULTIVITAMINS, THERA 1 EACH TAB PO SCH (13:04)
[2018-11-07] MEDS: THIAMINE 100 MG TAB PO SCH (13:04)
[2018-11-07] MEDS: ATORVASTATIN 40 MG TAB PO SCH (13:05)
--- NOTE | 2018-11-07 19:53 | PN ---
PROGRESS NOTE DATE OF SERVICE: 11/07/2018 This 63-year-old gentleman admitted with bilateral pneumonia also had multiple myeloma and immunosuppression. The patient also had a left loculated pleural effusion. The patient also had change in mental status. Patient has taken a turn for the worse with shortness of breath and other medical issues. The patient is becoming more unresponsive. Hospice is being considered at this time. Past medical history reviewed. Review of systems could not be taken. Current medications are reviewed. They include: 1. Zovirax. 2. DuoNeb. 3. Xanax. 4. Lipitor. 5. Isopto. 6. Pulmicort. 7. Diflucan. 8. Folic acid. Doses reviewed. PHYSICAL EXAMINATION: The patient is extremely short of breath. Pulse 88, blood pressure 138/83, respirations 30, temperature normal, pulse ox 97% on 15 L/minute Ventimask. HEENT: Conjunctivae normal. NECK: No jugular venous distention. CARDIOVASCULAR SYSTEM: S1, S2 muffled. RESPIRATORY SYSTEM: Breath sounds diminished at the bases. Bilateral scattered rhonchi and crackles. Expiratory wheezing. ABDOMEN: Soft, non-tender. LEGS: No edema. No swelling. NERVOUS SYSTEM: No focal deficit. LABS: WBC 2.7, hemoglobin 7.3, platelets 21. ASSESSMENT: 1. Bilateral pneumonia, possibly gram-negative, with sepsis, present on admission. 2. Acute hypoxic respiratory failure, on Ventimask. 3. Multiple myeloma and immunosuppression. 4. Left-sided loculated pleural effusion, on PleurX drainage. 5. Chronic compression fracture of T7 and T8 with radiculopathy. 6. History of coronary artery disease. 7. Gait dysfunction. 8. History of chronic obstructive pulmonary disease. 9. History of gastroesophageal reflux disease. 10.Hypertension. 11.Hyperlipidemia. 12.Advanced multiple myeloma with left-sided pleural effusion. 13.Peripheral neuropathy due to chemotherapy. 14.Pancytopenia due to chemotherapy. 15.Multiple myeloma. 16.Perlita albicans in the sputum. 17.NO CODE, NO CPR, NO VENT. RECOMMENDATIONS AND DISCUSSION: I recommend to continue current medications, continue with the monitoring, symptomatic treatment. The family started hospice. The family has talked with Hospice and is opting for hospice at this time because of the extremely grave prognosis. The son has already talked to Dr. Reynolds over the phone. At this time the patient has taken a turn for the worse and is not improving at this time. I would recommend consulting Hospice and continue to monitor. Further recommendations to follow. MMODL / IJN: [id number] /
== END 2018-11-07 15:59 | disposition hospice, inpatient (51) | DRG 871 ==
LOC: EC 03:01 → 3NMEDONC 06:17
PROVIDERS: ADMIT Hospitalist; ATTEND Hospitalist
PROC: 30233R1 Transfusion of Nonautologous Platelets into Peripheral Vein, Percutaneous Approach (ICD-10-PCS; 2018-11-01)
PROC: 30233N1 Transfusion of Nonautologous Red Blood Cells into Peripheral Vein, Percutaneous Approach (ICD-10-PCS; 2018-11-01)
PROC: 02HV33Z Insertion of Infusion Device into Superior Vena Cava, Percutaneous Approach (ICD-10-PCS; principal; 2018-11-02 09:00)
DX: A41.50 Gram-negative sepsis, unspecified (principal); J15.6 Pneumonia due to other Gram-negative bacteria; J86.9 Pyothorax without fistula; D61.810 Antineoplastic chemotherapy induced pancytopenia; J96.21 Acute and chronic respiratory failure with hypoxia; C90.00 Multiple myeloma not having achieved remission; J44.0 Chronic obstructive pulmonary disease with (acute) lower respiratory infection; J90 Pleural effusion, not elsewhere classified; J98.11 Atelectasis; M84.58XA Pathological fracture in neoplastic disease, other specified site, initial encounter for fracture; C79.51 Secondary malignant neoplasm of bone; Z94.84 Stem cells transplant status; Z94.81 Bone marrow transplant status; I71.2 Thoracic aortic aneurysm, without rupture; G62.0 Drug-induced polyneuropathy; Z51.5 Encounter for palliative care; Z66 Do not resuscitate; E78.5 Hyperlipidemia, unspecified; G89.29 Other chronic pain; I10 Essential (primary) hypertension; I25.10 Atherosclerotic heart disease of native coronary artery without angina pectoris; I25.2 Old myocardial infarction; K21.9 Gastro-esophageal reflux disease without esophagitis; K59.00 Constipation, unspecified; R04.0 Epistaxis; T45.1X5A Adverse effect of antineoplastic and immunosuppressive drugs, initial encounter; R11.2 Nausea with vomiting, unspecified; R19.7 Diarrhea, unspecified; R26.9 Unspecified abnormalities of gait and mobility; R63.0 Anorexia; E78.00 Pure hypercholesterolemia, unspecified; R32 Unspecified urinary incontinence; M54.14 Radiculopathy, thoracic region; M25.551 Pain in right hip; Z87.01 Personal history of pneumonia (recurrent); Z79.899 Other long term (current) drug therapy; Z87.11 Personal history of peptic ulcer disease; Z95.5 Presence of coronary angioplasty implant and graft; Z87.891 Personal history of nicotine dependence; Z92.3 Personal history of irradiation; Z80.52 Family history of malignant neoplasm of bladder; Z80.1 Family history of malignant neoplasm of trachea, bronchus and lung
CPT/HCPCS: 36415; 36573; 71045; 71046; 71250; 71275; 80048; 80053; 82784; 83615; 83880; 83883; 84165; 84484; 85025; 85027; 85379; 85384; 85610; 85730; 86334; 86850; 86900; 86901; 86920; 87040; 87045; 87046; 87070; 87086; 87205; 87449; 93005; 93970; 94640; 94760; 96365; 96375; 99285

== ENCOUNTER 2018-11-07 16:36 | Inpatient (IN) | payer BC, MEDICAID, MEDICARE ==
[2018-11-07] MEDS ORDERED: ACETAMINOPHEN SUPPOSITORY 650 MG SUPP RECTAL PRN (16:39)
[2018-11-07] MEDS ORDERED: ONDANSETRON 4 MG/2 ML VIAL IVP PRN (16:39)
[2018-11-07] MEDS ORDERED: ATROPINE OPHTH SOLN 1% 5ML BTL SUBLINGUAL PRN (16:39)
[2018-11-07] MEDS ORDERED: SCOPOLAMINE 1.5MG/72HR PATCH TRANSDERM SCH (17:00)
[2018-11-07] MEDS: MORPHINE SULFATE (100 MG/2 ML) 100 MG in SODIUM CHLORIDE 0.9% 100 ML IV SCH (17:36)
[2018-11-07 18:04] VITALS: BMI 27.8
[2018-11-07] MEDS: LORazepam 2 MG/ML INJ IV PRN (19:05)
[2018-11-08] MEDS ORDERED: SCOPOLAMINE 1.5MG/72HR PATCH TRANSDERM SCH (09:00)
[2018-11-08] MEDS: LORazepam 2 MG/ML INJ IV PRN ×3 (11:39→21:16)
[2018-11-08] MEDS: MORPHINE SULFATE (100 MG/2 ML) 100 MG in SODIUM CHLORIDE 0.9% 100 ML IV SCH (18:28)
--- NOTE | 2018-11-08 22:28 | PN ---
PROGRESS NOTE DATE OF SERVICE: November 07, 2018. PRESENT COMPLAINT: Pain control. INTERVAL HISTORY: The patient is under hospice care, getting IV pain medications, symptom control on nasal cannula. Patient's son and [id number] at the bedside. PHYSICAL EXAMINATION: GENERAL: On examination lethargic on oxygen. LUNGS: Diminished breath sounds. Increased respiratory rate. Patient appears to be comfortable. ASSESSMENT: 1. Advancing multiple myeloma, symptomatic. 2. The patient is on morphine drip, scopolamine patch for symptom control. 3. The patient is under hospice GIP care. MMODL / IJN: [id number] /
[2018-11-09] MEDS: LORazepam 2 MG/ML INJ IV PRN ×2 (02:21→03:37)
[2018-11-09] MEDS: MORPHINE SULFATE (100 MG/2 ML) 100 MG in SODIUM CHLORIDE 0.9% 100 ML IV SCH (05:45)
--- NOTE | 2018-11-09 22:20 | DS ---
DISCHARGE SUMMARY DATE OF ADMISSION: 11/07/2018 DATE OF EXPIRATION: 11/09/2018 HOSPITAL COURSE: Patient admitted to [facility] hospice with symptom control and was on morphine drip and supportive care and comfort pack. CAUSE OF : Multiple myeloma, advanced. OTHER MEDICAL PROBLEMS: 1. Coronary artery disease. 2. Chronic obstructive pulmonary disease. Copy of dictation to Dr. Coelho. TATIANA / ARLENEN: [id number] /
== END 2018-11-09 06:00 | disposition expired | DRG 951 ==
LOC: 3NMEDONC 16:36
PROVIDERS: ADMIT Hospitalist; ATTEND Hospitalist
DX: Z51.5 Encounter for palliative care (principal); C90.00 Multiple myeloma not having achieved remission; I25.10 Atherosclerotic heart disease of native coronary artery without angina pectoris; J44.9 Chronic obstructive pulmonary disease, unspecified